=== PATIENT | male | born 1955 | race Caucasian/White ===

== ENCOUNTER → 2016-09-06 | Outpatient (CLI) | payer BC, OTHER ==
[~2016-09-06] MED LIST: CIPR500T78 PO; HYDR-3812 PO; HYDR-3816 PO; HYDR1TAB PO; LOSA1TAB15 PO; LOSA1TAB19; METR500T PO; NAPR-689; NAPR220C11 PO; OMEP20TA33 PO; OMG1KC PO; TRAM50TA2; TRAM50TA2 PO
--- NOTE | 2016-09-06 11:56 | Diagnostic Imaging Report ---
PROCEDURE: CT abdomen and pelvis without contrast. TECHNIQUE: Multiple contiguous axial images were obtained through the abdomen and pelvis without the use of intravenous contrast. INDICATION: Left-sided abdominal pain. COMPARISON: 10/31/2014 FINDINGS: Included views of the lung bases show benign calcified granulomas within the right lower lobe. CT abdomen: There is colonic diverticulosis, but no CT evidence of acute diverticulitis is seen on today's study. Normal appendix cannot be adequately identified, but there is no pericecal inflammation. The more distal small bowel loops are somewhat prominent in diameter, but there is no evidence of focal obstruction. The kidneys, adrenal glands, spleen, pancreas, and liver have an unremarkable noncontrast CT appearance. There is no loculated fluid collection, free fluid or free air within the abdomen. No abnormal mesenteric or retroperitoneal adenopathy is seen. There is mild calcified aortic and arterial atherosclerosis. Bony structures show no acute abnormalities. CT pelvis: Urinary bladder is unopacified and nondistended. No calculi are seen within the urinary bladder. There is no loculated fluid collection, free fluid or free air within the pelvis. No abnormal lymph nodes are seen. Bony structures show no acute abnormalities. IMPRESSION: 1. Colonic diverticulosis, but no CT evidence of acute diverticulitis. 2. Somewhat mildly prominent appearance to the distal small bowel loops, but otherwise no evidence of focal obstruction. Findings are nonspecific, but could be on the basis of underlying enteritis. Dictated by: Dictated on workstation # [id number]
== END ==
LOC: RAD 09:37
PROVIDERS: ATTEND Family Medicine
DX: K57.30 Diverticulosis of large intestine without perforation or abscess without bleeding (principal)
CPT/HCPCS: 74176

== ENCOUNTER → 2017-08-21 | Outpatient (CLI) | payer BC, OTHER ==
[~2017-08-21] MED LIST changes: +ACHD5005 PO; -HYDR-3812 PO
== END ==
LOC: RAD 12:37
PROVIDERS: ATTEND Family Medicine
DX: Z53.8 Procedure and treatment not carried out for other reasons (principal); M54.12 Radiculopathy, cervical region

== ENCOUNTER 2017-10-18 19:07 | Emergency (ER) | payer BC, OTHER ==
[~2017-10-18] VITALS: Ht 182.9 cm; Wt 88.5 kg
--- OUTSIDE RECORDS SUMMARY | 2017-10-18 19:13 | XMS REPORT | Continuity of Care Document ---
Author Author [facility] Organization [facility] Address Unknown Phone Unavailable Allergies Active Description Code Type Severity Reaction Onset Reported/Identified Relationship to Patient Clinical Status Yes SHRAVAN INHIBITORS UNKNOWN RESPIRATORY - COUGHI Yes DEMEROL UNKNOWN OTHER Yes GABAPENTIN UNKNOWN DIZZINESS Yes GABAPENTIN MODERATE OTHER Yes NKANo Known Allergies NKA Miscellaneous Allergy Unknown N/A 12/10/2005 Yes meperidine [id number] Drug Allergy Unknown N/A 10/31/2014 Medications There is no data. 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 08/30/2011 Ot 401.9 HYPERTENSION NOS 08/30/2011 Ot 550.10 UNILAT ING HERNIA W OBST 11/29/2012 Ot 789.00 ABDOMINAL PAIN, UNSPECIFIED SITE 10/30/2014 Ot 401.9 10/30/2014 Ot 401.9 10/30/2014 Ot 789.00 10/30/2014 KEISHA ARANDA, MARY Weinstein Ot 401.9 10/31/2014 Ot 789.00 10/31/2014 KEISHA ARANDA, MARY Weinstein Ot 805.4 10/31/2014 MARY VALDES MD Ot E000.8 10/31/2014 MARY VALDES MD Ot E888.9 10/31/2014 Ot 789.00 10/31/2014 MARY VALDES MD Ot 805.4 10/31/2014 MARY VALDES MD Ot E000.8 10/31/2014 MARY VALDES MD Ot E888.9 10/31/2014 NING RIOS MD Ot 560.9 INTESTINAL OBSTRUCT NOS 10/31/2014 NING RIOS MD Ot 562.10 DIVERTICULOSIS COLON (W/O MENT OF HEMORR 10/31/2014 NING RIOS MD Ot 733.13 PATHOLOGIC FRACTURE, VERTEBRAE 10/31/2014 GABRIEL ARANDA, NING Levi Ot 789.00 ABDOMINAL PAIN, UNSPECIFIED SITE 12/03/2014 KEISHA ARANDA, MARY Weinstein Ot 805.4 12/03/2014 KEISHA ARANDA, MARY Weinstein Ot E000.8 12/03/2014 KEISHA ARANDA, MARY Weinstein Ot E888.9 12/03/2014 ALDANAMELCHOR J SUPERVISOR GEAR REPAIR Ot 557.1 12/03/2014 ALDANA, MELCHOR J SUPERVISOR GEAR REPAIR Ot 562.10 12/03/2014 ALDANA, MELCHOR J SUPERVISOR GEAR REPAIR Ot 787.3 12/03/2014 ALDANA, MELCHOR J SUPERVISOR GEAR REPAIR Ot 787.91 12/03/2014 ALDANA, MELCHOR J SUPERVISOR GEAR REPAIR Ot 789.00 12/16/2014 Ot 401.9 12/16/2014 Ot 401.9 12/16/2014 Ot 789.00 12/16/2014 KEISHA ARANDA, MARY Weinstein Ot 401.9 12/16/2014 KEISHA ARANDA, MARY L Ot 805.4 12/16/2014 KEISHA ARANDA, MARY L Ot E000.8 12/16/2014 KEISHA ARANDA, MARY Weinstein Ot E888.9 12/16/2014 ALDANAHORTENCIALY J SUPERVISOR GEAR REPAIR Ot 557.1 12/16/2014 ALDANAHORTENCIALY J SUPERVISOR GEAR REPAIR Ot 562.10 12/16/2014 ALDANAHORTENCIALY J SUPERVISOR GEAR REPAIR Ot 787.3 12/16/2014 ALDANAMELCHOR J SUPERVISOR GEAR REPAIR Ot 787.91 12/16/2014 ALDANAHORTENCIALY J SUPERVISOR GEAR REPAIR Ot 789.00 12/16/2014 KEISHA ARANDA, MARY L Ot 805.4 12/16/2014 KEISHA ARANDA, MARY Weinstein Ot E000.8 12/16/2014 KEISHA ARANDA, MARY Weinstein Ot E888.9 12/16/2014 KEISHA ARANDA, MARY L Ot 805.4 12/16/2014 KEISHA ARANDA, MARY L Ot E000.8 12/16/2014 KEISHA ARANDA, MARY L Ot E888.9 12/16/2014 ALDANA MELCHOR Tuan SUPERVISOR GEAR REPAIR Ot 557.1 12/16/2014 ALDANA, MELCHOR J SUPERVISOR GEAR REPAIR Ot 562.10 12/16/2014 ALDANA MELCHOR J SUPERVISOR GEAR REPAIR Ot 787.3 12/16/2014 ALDANAMELCHOR J SUPERVISOR GEAR REPAIR Ot 787.91 12/16/2014 ALDANAMELCHOR J SUPERVISOR GEAR REPAIR Ot 789.00 02/05/2015 Ot 401.9 02/05/2015 Ot 401.9 02/05/2015 Ot 789.00 02/05/2015 KEISHA ARANDA, MARY Weinstein Ot 401.9 02/05/2015 KEISHA ARANDA, MARY Weinstein Ot 805.4 02/05/2015 KEISHA ARANDA, MARY Weinstein Ot E000.8 02/05/2015 KEISHA ARANDA, MARY Weinstein Ot E888.9 02/05/2015 ALDANAMELCHOR J SUPERVISOR GEAR REPAIR Ot 557.1 02/05/2015 ALDANAHORTENCIALY J SUPERVISOR GEAR REPAIR Ot 562.10 02/05/2015 ALDANAMELCHOR J SUPERVISOR GEAR REPAIR Ot 787.3 02/05/2015 ALDANAMELCHOR J SUPERVISOR GEAR REPAIR Ot 787.91 02/05/2015 ALDANA, MELCHOR J SUPERVISOR GEAR REPAIR Ot 789.00 02/05/2015 Ot 733.13 02/05/2015 APPLE ARANDA, IJEOMA Dickerson Ot 733.13 02/05/2015 APPLE ARANDA, IJEOMA Dickerson Ot V72.63 02/05/2015 APPLE ARANDA, IJEOMA Dickerson Ot V74.8 02/05/2015 ALDANAMELCHOR J SUPERVISOR GEAR REPAIR Ot 557.1 02/05/2015 ALDANAMELCHOR J SUPERVISOR GEAR REPAIR Ot 562.10 02/05/2015 ALDANAMELCHOR J SUPERVISOR GEAR REPAIR Ot 787.3 02/05/2015 ALDANA, MELCHOR J SUPERVISOR GEAR REPAIR Ot 787.91 02/05/2015 ALDANA, MELCHOR J SUPERVISOR GEAR REPAIR Ot 789.00 02/05/2015 KEISHA ARANDA, MARY Weinstein Ot 805.4 02/05/2015 KEISHA ARANDA, MARY Weinstein Ot E000.8 02/05/2015 KEISHA ARANDA, MARY Weinstein Ot E888.9 02/09/2015 KEISHA ARANDA, MARY Weinstein Ot 805.4 02/09/2015 KEISHA ARANDA, MARY Weinstein Ot E000.8 02/09/2015 KEISHA ARANDA, MARY Weinstein Ot E888.9 02/09/2015 ALDANAMELCHOR J SUPERVISOR GEAR REPAIR Ot 557.1 02/09/2015 MELCHOR ALDANA SUPERVISOR GEAR REPAIR Ot 562.10 02/09/2015 MELCHOR ALDANA SUPERVISOR GEAR REPAIR Ot 787.3 02/09/2015 MELCHOR ALDANA SUPERVISOR GEAR REPAIR Ot 787.91 02/09/2015 MELCHOR ALDANA SUPERVISOR GEAR REPAIR Ot 789.00 02/09/2015 IJEOMA CHIU MD Ot 733.00 OSTEOPOROSIS NOS 02/09/2015 IJEOMA CHIU MD Ot 733.13 PATHOLOGIC FRACTURE, VERTEBRAE 02/09/2015 IJEOMA CHIU MD Ot M81.0 AGE-RELATED OSTEOPOROSIS W/O CURRENT PAT 02/12/2015 Ot 733.13 02/19/2015 IJEOMA CHIU MD Ot 733.13 02/19/2015 IJEOMA CHIU MD Ot V72.63 02/19/2015 IJEOMA CHIU MD Ot V74.8 03/02/2015 Ot 733.13 03/02/2015 IJEOMA CHIU MD Ot 733.13 03/02/2015 IJEOMA CHIU MD Ot V72.63 03/02/2015 IJEOMA CHIU MD Ot V74.8 03/03/2015 MARY VALDES MD Ot 805.4 03/03/2015 MARY VALDES MD Ot E000.8 03/03/2015 MARY VALDES MD Ot E888.9 03/03/2015 MELCHOR ALDANA SUPERVISOR GEAR REPAIR Ot 557.1 03/03/2015 MELCHOR ALDANA SUPERVISOR GEAR REPAIR Ot 562.10 03/03/2015 MELCHOR ALDANA SUPERVISOR GEAR REPAIR Ot 787.3 03/03/2015 MELCHOR ALDANA SUPERVISOR GEAR REPAIR Ot 787.91 03/03/2015 MELCHOR ALDANA SUPERVISOR GEAR REPAIR Ot 789.00 03/03/2015 Ot 733.13 03/03/2015 IJEOMA CHIU MD Ot 733.13 03/03/2015 IJEOMA CHIU MD Ot V72.63 03/03/2015 IJEOMA CHIU MD Ot V74.8 03/05/2015 MARY VALDES MD Ot 562.10 03/05/2015 MARY VALDES MD Ot 780.60 03/09/2015 Ot 733.13 03/09/2015 IJEOMA CHIU MD Ot 733.13 03/09/2015 IJEOMA CHIU MD Ot V72.63 03/09/2015 IJEOMA CHIU MD Ot V74.8 03/09/2015 IJEOMA CHIU MD Ot Z01.812 03/10/2015 KEISHA ARANDA, MARY Weinstein Ot 562.10 03/10/2015 MARY VALDES MD Ot 780.60 03/13/2015 MARY VALDES MD Ot 562.10 03/13/2015 MARY VALDES MD Ot 780.60 03/16/2015 Ot 401.9 03/16/2015 Ot 401.9 03/16/2015 Ot 789.00 03/16/2015 KEISHA ARANDA, MARY Weinstein Ot 401.9 03/16/2015 MARY VALDES MD Ot 805.4 03/16/2015 MARY VALDES MD Ot E000.8 03/16/2015 KEISHA ARANDA, MARY Weinstein Ot E888.9 03/16/2015 ALDANAMELCHOR J SUPERVISOR GEAR REPAIR Ot 557.1 03/16/2015 ALDANAMELCHOR SUPERVISOR GEAR REPAIR Ot 562.10 03/16/2015 ALDANA, MELCHOR Dickerson SUPERVISOR GEAR REPAIR Ot 787.3 03/16/2015 ALDANA, MELCHOR J SUPERVISOR GEAR REPAIR Ot 787.91 03/16/2015 ALDANA, MELCHOR J SUPERVISOR GEAR REPAIR Ot 789.00 03/16/2015 Ot 733.13 03/16/2015 IJEOMA CHIU MD Ot 733.13 03/16/2015 IJEOMA CHIU MD Ot V72.63 03/16/2015 IJEOMA CHIU MD Ot V74.8 03/16/2015 IJEOMA CHIU MD Ot Z01.812 04/13/2015 MARY VALDES MD Ot 562.10 04/13/2015 KEISHA ARANDA, MARY Weinstein Ot 780.60 04/28/2015 MARY VALDES MD Ot 562.10 04/28/2015 MARY VALDES MD Ot 780.60 09/08/2015 MARY VALDES MD Ot 805.4 09/08/2015 MARY VALDES MD Ot E000.8 09/08/2015 KEISHA ARANDA, MARY Weinstein Ot E888.9 09/08/2015 ALDANAMELCHOR SUPERVISOR GEAR REPAIR Ot 557.1 09/08/2015 ALDANAMELCHOR J SUPERVISOR GEAR REPAIR Ot 562.10 09/08/2015 ALDANAMELCHOR J SUPERVISOR GEAR REPAIR Ot 787.3 09/08/2015 ALDANAMELCHOR SUPERVISOR GEAR REPAIR Ot 787.91 09/08/2015 ALDANAHORTENCIALY J SUPERVISOR GEAR REPAIR Ot 789.00 09/08/2015 Ot 733.13 09/08/2015 IJEOMA CHIU MD Ot 733.13 09/08/2015 IJEOMA CHIU MD Ot V72.63 09/08/2015 IJEOMA CHIU MD Ot V74.8 09/08/2015 IJEOMA CHIU MD Ot Z01.812 09/08/2015 KEISHA ARANDA, MARY Weinstein Ot 562.10 09/08/2015 MARY VALDES MD Ot 780.60 09/08/2015 KEISHA ARANDA, MARY Weinstein Ot 805.4 09/08/2015 MARY VALDES MD Ot E000.8 09/08/2015 KEISHA ARANDA, MARY Weinstein Ot E888.9 09/08/2015 ALDANAMELCHOR SUPERVISOR GEAR REPAIR Ot 557.1 09/08/2015 ALDANAMELCHOR SUPERVISOR GEAR REPAIR Ot 562.10 09/08/2015 ALDANAMELCHOR SUPERVISOR GEAR REPAIR Ot 787.3 09/08/2015 ALDANAMELCHOR SUPERVISOR GEAR REPAIR Ot 787.91 09/08/2015 ALDANAHORTENCIALY J SUPERVISOR GEAR REPAIR Ot 789.00 09/08/2015 Ot 733.13 09/08/2015 IJEOMA CHIU MD Ot 733.13 09/08/2015 IJEOMA CHIU MD Ot V72.63 09/08/2015 IJEOMA CHIU MD Ot V74.8 09/08/2015 IJEOMA CHIU MD Ot Z01.812 09/08/2015 MARY VALDES MD Ot 562.10 09/08/2015 MARY VALDES MD Ot 780.60 10/28/2015 MARY VALDES MD Ot M12.9 ARTHROPATHY, UNSPECIFIED 10/28/2015 MARY VALDES MD L Ot M48.06 SPINAL STENOSIS, LUMBAR REGION 10/28/2015 KEISHA ARANDA, MARY Weinstein Ot 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, 10/28/2015 MARY VALDES MD Ot M12.9 ARTHROPATHY, UNSPECIFIED 10/28/2015 MARY VALDES MD Ot M48.06 SPINAL STENOSIS, LUMBAR REGION 10/28/2015 MARY VALDES MD Ot 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, 10/28/2015 MARY VALDES MD Ot M12.9 ARTHROPATHY, UNSPECIFIED 10/28/2015 MARY VALDES MD Ot M48.06 SPINAL STENOSIS, LUMBAR REGION 10/28/2015 MARY VALDES MD Ot 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, 11/02/2015 MARY VALDES MD Ot 805.4 FX LUMBAR VERTEBRA-CLOSE 11/02/2015 MARY VALDES MD Ot E000.8 OTHER EXTERNAL CAUSE STATUS 11/02/2015 KEISHA ARANDA, MARY Weinstein Ot E888.9 FALL NOS 11/02/2015 MELCHOR ALDANA SUPERVISOR GEAR REPAIR Ot 557.1 CHR VASC INSUFF INTEST 11/02/2015 MELCHOR ALDANA SUPERVISOR GEAR REPAIR Ot 562.10 DIVERTICULOSIS COLON (W/O MENT OF HEMORR 11/02/2015 MELCHOR ALDANA SUPERVISOR GEAR REPAIR Ot 787.3 FLATUL/ERUCTAT/GAS PAIN 11/02/2015 MELCHOR ALDANA SUPERVISOR GEAR REPAIR Ot 787.91 DIARRHEA 11/02/2015 MELCHOR ALDANA SUPERVISOR GEAR REPAIR Ot 789.00 ABDOMINAL PAIN, UNSPECIFIED SITE 11/02/2015 Ot 733.13 PATHOLOGIC FRACTURE, VERTEBRAE 11/02/2015 IJEOMA CHIU MD Ot 733.13 PATHOLOGIC FRACTURE, VERTEBRAE 11/02/2015 IJEOMA CHIU MD Ot V72.63 PRE-PROCEDURAL LABORATORY EXAMINATION 11/02/2015 IJEOMA CHIU MD Ot V74.8 SCREEN-BACTERIAL DIS NEC 11/02/2015 IJEOMA CHIU MD Ot Z01.812 ENCOUNTER FOR PREPROCEDURAL LABORATORY E 11/02/2015 MARY VALDES MD Ot 562.10 DIVERTICULOSIS COLON (W/O MENT OF HEMORR 11/02/2015 MARY VALDES MD Ot 780.60 FEVER, UNSPECIFIED 11/02/2015 MARY VALDES MD Ot M12.9 ARTHROPATHY, UNSPECIFIED 11/02/2015 MARY VALDES MD Ot M48.06 SPINAL STENOSIS, LUMBAR REGION 11/02/2015 MARY VALDES MD Ot 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, 11/02/2015 Ot 401.9 HYPERTENSION NOS 11/02/2015 Ot 401.9 HYPERTENSION NOS 11/02/2015 Ot 789.00 ABDOMINAL PAIN, UNSPECIFIED SITE 11/02/2015 KEISHA ARANDA, MARY Weinstein Ot 401.9 HYPERTENSION NOS 11/02/2015 KEISHA ARANDA, MARY Weinstein Ot 805.4 FX LUMBAR VERTEBRA-CLOSE 11/02/2015 MARY VALDES MD Ot E000.8 OTHER EXTERNAL CAUSE STATUS 11/02/2015 MARY VALDES MD Ot E888.9 FALL NOS 11/02/2015 MELCHOR ALDANA SUPERVISOR GEAR REPAIR Ot 557.1 CHR VASC INSUFF INTEST 11/02/2015 MELCHOR ALDANA SUPERVISOR GEAR REPAIR Ot 562.10 DIVERTICULOSIS COLON (W/O MENT OF HEMORR 11/02/2015 MELCHOR ALDANA SUPERVISOR GEAR REPAIR Ot 787.3 FLATUL/ERUCTAT/GAS PAIN 11/02/2015 MELCHOR ALDANA SUPERVISOR GEAR REPAIR Ot 787.91 DIARRHEA 11/02/2015 MELCHOR ALDANA SUPERVISOR GEAR REPAIR Ot 789.00 ABDOMINAL PAIN, UNSPECIFIED SITE 11/02/2015 Ot 733.13 PATHOLOGIC FRACTURE, VERTEBRAE 11/02/2015 IJEOMA CHIU MD Ot 733.13 PATHOLOGIC FRACTURE, VERTEBRAE 11/02/2015 IJEOMA CHIU MD Ot V72.63 PRE-PROCEDURAL LABORATORY EXAMINATION 11/02/2015 IJEOMA CHIU MD Ot V74.8 SCREEN-BACTERIAL DIS NEC 11/02/2015 IJEOMA CHIU MD Ot Z01.812 ENCOUNTER FOR PREPROCEDURAL LABORATORY E 11/02/2015 MARY VALDES MD Ot 562.10 DIVERTICULOSIS COLON (W/O MENT OF HEMORR 11/02/2015 MARY VALDES MD Ot 780.60 FEVER, UNSPECIFIED 11/02/2015 MARY VALDES MD Ot M12.9 ARTHROPATHY, UNSPECIFIED 11/02/2015 VALDES MD, MARY L Ot M48.06 SPINAL STENOSIS, LUMBAR REGION 11/02/2015 MARY VALDES MD Ot 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, 11/11/2015 MARY VALDES MD Ot M12.9 ARTHROPATHY, UNSPECIFIED 11/11/2015 MARY VALDES MD Ot M48.06 SPINAL STENOSIS, LUMBAR REGION 11/11/2015 MARY VALDES MD Ot 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, 11/25/2015 MARY VALDES MD Ot 805.4 FX LUMBAR VERTEBRA-CLOSE 11/25/2015 MARY VALDES MD Ot E000.8 OTHER EXTERNAL CAUSE STATUS 11/25/2015 MARY VALDES MD Ot E888.9 FALL NOS 11/25/2015 MELCHOR ALDANAP Ot 557.1 CHR VASC INSUFF INTEST 11/25/2015 MELCHOR ALDANAP Ot 562.10 DIVERTICULOSIS COLON (W/O MENT OF HEMORR 11/25/2015 MELCHOR ALDANA SUPERVISOR GEAR REPAIR Ot 787.3 FLATUL/ERUCTAT/GAS PAIN 11/25/2015 MELCHOR ALDANAP Ot 787.91 DIARRHEA 11/25/2015 MELCHOR ALDANA SUPERVISOR GEAR REPAIR Ot 789.00 ABDOMINAL PAIN, UNSPECIFIED SITE 11/25/2015 Ot 733.13 PATHOLOGIC FRACTURE, VERTEBRAE 11/25/2015 IJEOMA CIHU MD Ot 733.13 PATHOLOGIC FRACTURE, VERTEBRAE 11/25/2015 IJEOMA CHIU MD Ot V72.63 PRE-PROCEDURAL LABORATORY EXAMINATION 11/25/2015 IJEOMA CHIU MD Ot V74.8 SCREEN-BACTERIAL DIS NEC 11/25/2015 IJEOMA CHIU MD Ot Z01.812 ENCOUNTER FOR PREPROCEDURAL LABORATORY E 11/25/2015 MARY VALDES MD Ot 562.10 DIVERTICULOSIS COLON (W/O MENT OF HEMORR 11/25/2015 MARY VALDES MD Ot 780.60 FEVER, UNSPECIFIED 11/25/2015 MARY VALDES MD Ot M12.9 ARTHROPATHY, UNSPECIFIED 11/25/2015 MARY VALDES MD Ot M48.06 SPINAL STENOSIS, LUMBAR REGION 11/25/2015 VALDES MD, MARY L Ot 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, 12/04/2015 KEISHA ARANDA, MARY Weinstein Ot M12.9 ARTHROPATHY, UNSPECIFIED 12/04/2015 KEISHA ARANDA, MARY Weinstein Ot M48.06 SPINAL STENOSIS, LUMBAR REGION 12/04/2015 KEISHA ARANDA, MARY Weinstein Ot 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, 12/17/2015 KEISHA ARANDA, MARY Weinstein Ot M12.9 ARTHROPATHY, UNSPECIFIED 12/17/2015 KEISHA ARANDA, MARY Weinstein Ot M48.06 SPINAL STENOSIS, LUMBAR REGION 12/17/2015 MARY VALDES MD Ot 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, 12/31/2015 Ot 401.9 HYPERTENSION NOS 12/31/2015 Ot 401.9 HYPERTENSION NOS 12/31/2015 Ot 789.00 ABDOMINAL PAIN, UNSPECIFIED SITE 12/31/2015 MARY VALDES MD Ot 401.9 HYPERTENSION NOS 12/31/2015 KEISHA ARANDA, MARY Weinstein Ot 805.4 FX LUMBAR VERTEBRA-CLOSE 12/31/2015 KEISHA ARANDA, MARY Weinstein Ot E000.8 OTHER EXTERNAL CAUSE STATUS 12/31/2015 KEISHA ARANDA, MARY Weinstein Ot E888.9 FALL NOS 12/31/2015 MELCHOR ALDANA SUPERVISOR GEAR REPAIR Ot 557.1 CHR VASC INSUFF INTEST 12/31/2015 MELCHOR ALDANA SUPERVISOR GEAR REPAIR Ot 562.10 DIVERTICULOSIS COLON (W/O MENT OF HEMORR 12/31/2015 MELCHOR ALDANA SUPERVISOR GEAR REPAIR Ot 787.3 FLATUL/ERUCTAT/GAS PAIN 12/31/2015 MELCHOR ALDANA SUPERVISOR GEAR REPAIR Ot 787.91 DIARRHEA 12/31/2015 MELCHOR ALDANA SUPERVISOR GEAR REPAIR Ot 789.00 ABDOMINAL PAIN, UNSPECIFIED SITE 12/31/2015 Ot 733.13 PATHOLOGIC FRACTURE, VERTEBRAE 12/31/2015 IJEOMA CHIU MD Ot 733.13 PATHOLOGIC FRACTURE, VERTEBRAE 12/31/2015 IJEOMA CHIU MD Ot V72.63 PRE-PROCEDURAL LABORATORY EXAMINATION 12/31/2015 IJEOMA CHIU MD Ot V74.8 SCREEN-BACTERIAL DIS NEC 12/31/2015 IJEOMA CHIU MD Ot Z01.812 ENCOUNTER FOR PREPROCEDURAL LABORATORY E 12/31/2015 MARY VALDES MD Ot 562.10 DIVERTICULOSIS COLON (W/O MENT OF HEMORR 12/31/2015 KEISHA ARANDA, MARY Weinstein Ot 780.60 FEVER, UNSPECIFIED 12/31/2015 KEISHA ARANDA, MARY Weinstein Ot M12.9 ARTHROPATHY, UNSPECIFIED 12/31/2015 KEISHA ARANDA, MARY Weinstein Ot M48.06 SPINAL STENOSIS, LUMBAR REGION 12/31/2015 KEISHA ARANDA, MARY Weinstein Ot 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, 01/18/2016 ELVI ARANDA, BELEN Dickerson Ot 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 RADICULO 02/08/2016 BELEN BOLES MD Ot 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 RADICULO 02/25/2016 BELEN BOLES MD Ot 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 RADICULO 04/01/2016 KEISHA ARANDA, MARY Weinstein Ot 805.4 FX LUMBAR VERTEBRA-CLOSE 04/01/2016 KEISHA ARANDA, MARY Weinstein Ot E000.8 OTHER EXTERNAL CAUSE STATUS 04/01/2016 KEISHA ARANDA, MARY Weinstein Ot E888.9 FALL NOS 04/01/2016 MELCHOR ALDANA SUPERVISOR GEAR REPAIR Ot 557.1 CHR VASC INSUFF INTEST 04/01/2016 MELCHOR ALDANA SUPERVISOR GEAR REPAIR Ot 562.10 DIVERTICULOSIS COLON (W/O MENT OF HEMORR 04/01/2016 MELCHOR ALDANA SUPERVISOR GEAR REPAIR Ot 787.3 FLATUL/ERUCTAT/GAS PAIN 04/01/2016 MELCHOR ALDANA SUPERVISOR GEAR REPAIR Ot 787.91 DIARRHEA 04/01/2016 MELCHOR ALDANA SUPERVISOR GEAR REPAIR Ot 789.00 ABDOMINAL PAIN, UNSPECIFIED SITE 04/01/2016 Ot 733.13 PATHOLOGIC FRACTURE, VERTEBRAE 04/01/2016 IJEOMA CHIU MD Ot 733.13 PATHOLOGIC FRACTURE, VERTEBRAE 04/01/2016 IJEOMA CHIU MD Ot V72.63 PRE-PROCEDURAL LABORATORY EXAMINATION 04/01/2016 IJEOMA CHIU MD Ot V74.8 SCREEN-BACTERIAL DIS NEC 04/01/2016 IJEOMA CHIU MD Ot Z01.812 ENCOUNTER FOR PREPROCEDURAL LABORATORY E 04/01/2016 MARY VALDES MD Ot 562.10 DIVERTICULOSIS COLON (W/O MENT OF HEMORR 04/01/2016 MARY VALDES MD Ot 780.60 FEVER, UNSPECIFIED 04/01/2016 MARY VLADES MD Ot M12.9 ARTHROPATHY, UNSPECIFIED 04/01/2016 MARY VALDES MD Ot M48.06 SPINAL STENOSIS, LUMBAR REGION 04/01/2016 MARY VALDES MD Ot 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, 04/01/2016 BELEN BOLES MD Ot 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 RADICULO 04/01/2016 BELEN BOLES MD Ot 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 RADICULO 04/22/2016 BELEN BOLES MD Ot 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 RADICULO 09/06/2016 MARY VALDES MD Ot 805.4 FX LUMBAR VERTEBRA-CLOSE 09/06/2016 MARY VALDES MD Ot E000.8 OTHER EXTERNAL CAUSE STATUS 09/06/2016 MARY VALDES MD Ot E888.9 FALL NOS 09/06/2016 MELCHOR ALDANA SUPERVISOR GEAR REPAIR Ot 557.1 CHR VASC INSUFF INTEST 09/06/2016 MELCHOR ALDANA SUPERVISOR GEAR REPAIR Ot 562.10 DIVERTICULOSIS COLON (W/O MENT OF HEMORR 09/06/2016 MELCHOR ALDANA SUPERVISOR GEAR REPAIR Ot 787.3 FLATUL/ERUCTAT/GAS PAIN 09/06/2016 MELCHOR ALDANA SUPERVISOR GEAR REPAIR Ot 787.91 DIARRHEA 09/06/2016 MELCHOR ALDANAP Ot 789.00 ABDOMINAL PAIN, UNSPECIFIED SITE 09/06/2016 Ot 733.13 PATHOLOGIC FRACTURE, VERTEBRAE 09/06/2016 IJEOMA CHIU MD Ot 733.13 PATHOLOGIC FRACTURE, VERTEBRAE 09/06/2016 IJEOMA CHIU MD Ot V72.63 PRE-PROCEDURAL LABORATORY EXAMINATION 09/06/2016 IJEOMA CHIU MD Ot V74.8 SCREEN-BACTERIAL DIS NEC 09/06/2016 IJEOMA CHIU MD Ot Z01.812 ENCOUNTER FOR PREPROCEDURAL LABORATORY E 09/06/2016 MARY VALDES MD Ot 562.10 DIVERTICULOSIS COLON (W/O MENT OF HEMORR 09/06/2016 MARY VALDES MD Ot 780.60 FEVER, UNSPECIFIED 09/06/2016 MARY VALDES MD Ot M12.9 ARTHROPATHY, UNSPECIFIED 09/06/2016 KEISHA ARANDA, MARY L Ot M48.06 SPINAL STENOSIS, LUMBAR REGION 09/06/2016 KEISHA ARANDA, MARY L Ot 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, 09/06/2016 ELVI ARANDA, BELEN Dickerson Ot 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 RADICULO 09/07/2016 KEISHA ARANDA, MARY L Ot K57.30 DVRTCLOS OF LG INT W/O PERFORATION OR AB 09/07/2016 KEISHA ARANDA, MARY L Ot K57.30 DVRTCLOS OF LG INT W/O PERFORATION OR AB 09/14/2016 KEISHA ARANDA, MARY L Ot K57.30 DVRTCLOS OF LG INT W/O PERFORATION OR AB 09/21/2016 KEISHA ARANDA, MARY L Ot K57.30 DVRTCLOS OF LG INT W/O PERFORATION OR AB 06/13/2017 MARY VALDES W 272.4 OTHER AND UNSPECIFIED HYPERLIPIDEMIA 06/13/2017 MARY VALDES W 401.0 MALIGNANT ESSENTIAL HYPERTENSION 06/13/2017 MARY VALDES W E78.5 HYPERLIPIDEMIA, UNSPECIFIED 06/13/2017 KEISHA, MARY W I10 ESSENTIAL (PRIMARY) HYPERTENSION 06/13/2017 MARY VALDES W 272.4 OTHER AND UNSPECIFIED HYPERLIPIDEMIA 06/13/2017 KEISHA, MARY W 401.0 MALIGNANT ESSENTIAL HYPERTENSION 06/13/2017 VALDSE, MARY W E78.5 HYPERLIPIDEMIA, UNSPECIFIED 06/13/2017 VALDES, MARY W I10 ESSENTIAL (PRIMARY) HYPERTENSION 06/13/2017 MARY VALDES W 272.4 OTHER AND UNSPECIFIED HYPERLIPIDEMIA 06/13/2017 MARY VALDES W 401.0 MALIGNANT ESSENTIAL HYPERTENSION 06/13/2017 MARY VALDES W E78.5 HYPERLIPIDEMIA, UNSPECIFIED 06/13/2017 KEISHA, MARY W I10 ESSENTIAL (PRIMARY) HYPERTENSION 08/07/2017 KEISHA ARANDA, MARY L Ot 805.4 FX LUMBAR VERTEBRA-CLOSE 08/07/2017 KEISHA ARANDA, MARY L Ot E000.8 OTHER EXTERNAL CAUSE STATUS 08/07/2017 KEISHA ARANDA, MARY L Ot E888.9 FALL NOS 08/07/2017 MELCHOR ALDANA SUPERVISOR GEAR REPAIR Ot 557.1 CHR VASC INSUFF INTEST 08/07/2017 MELCHOR ALDANA Ot 562.10 DIVERTICULOSIS COLON (W/O MENT OF HEMORR 08/07/2017 MELCHOR ALDANAP Ot 787.3 FLATUL/ERUCTAT/GAS PAIN 08/07/2017 MELCHOR ALDANAP Ot 787.91 DIARRHEA 08/07/2017 MELCHOR ALDANAP Ot 789.00 ABDOMINAL PAIN, UNSPECIFIED SITE 08/07/2017 Ot 733.13 PATHOLOGIC FRACTURE, VERTEBRAE 08/07/2017 IJEOMA CHIU MD Ot 733.13 PATHOLOGIC FRACTURE, VERTEBRAE 08/07/2017 IJEOMA CHIU MD Ot V72.63 PRE-PROCEDURAL LABORATORY EXAMINATION 08/07/2017 IJEOMA CHIU MD Ot V74.8 SCREEN-BACTERIAL DIS NEC 08/07/2017 IJEOMA CHIU MD Ot Z01.812 ENCOUNTER FOR PREPROCEDURAL LABORATORY E 08/07/2017 KEISHA ARANDA, MARY Weinstein Ot 562.10 DIVERTICULOSIS COLON (W/O MENT OF HEMORR 08/07/2017 KEISHA ARANDA, MARY Weinstein Ot 780.60 FEVER, UNSPECIFIED 08/07/2017 KEISHA ARANDA, MARY Weinstein Ot M12.9 ARTHROPATHY, UNSPECIFIED 08/07/2017 KEISHA ARANDA, MARY Weinstein Ot M48.06 SPINAL STENOSIS, LUMBAR REGION 08/07/2017 KEISHA ARANDA, MARY Weinstein Ot 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, 08/07/2017 ELVI ARANDA, BELEN Dickerson Ot 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 RADICULO 08/07/2017 MARY VALDES MD Ot K57.30 DVRTCLOS OF LG INT W/O PERFORATION OR AB 08/18/2017 MARY VALDES MD Ot 805.4 FX LUMBAR VERTEBRA-CLOSE 08/18/2017 MARY VALDES MD Ot E000.8 OTHER EXTERNAL CAUSE STATUS 08/18/2017 MARY VALDES MD Ot E888.9 FALL NOS 08/18/2017 MELCHOR ALDANAP Ot 557.1 CHR VASC INSUFF INTEST 08/18/2017 MELCHOR ALDANAP Ot 562.10 DIVERTICULOSIS COLON (W/O MENT OF HEMORR 08/18/2017 MELCHOR ALDANA Ot 787.3 FLATUL/ERUCTAT/GAS PAIN 08/18/2017 MELCHOR ALDANA SUPERVISOR GEAR REPAIR Ot 787.91 DIARRHEA 08/18/2017 MELCHOR ALDANA SUPERVISOR GEAR REPAIR Ot 789.00 ABDOMINAL PAIN, UNSPECIFIED SITE 08/18/2017 Ot 733.13 PATHOLOGIC FRACTURE, VERTEBRAE 08/18/2017 IJEOMA CHIU MD Ot 733.13 PATHOLOGIC FRACTURE, VERTEBRAE 08/18/2017 IJEOMA CHIU MD Ot V72.63 PRE-PROCEDURAL LABORATORY EXAMINATION 08/18/2017 IJEOMA CHIU MD Ot V74.8 SCREEN-BACTERIAL DIS NEC 08/18/2017 IJEOMA CHIU MD Ot Z01.812 ENCOUNTER FOR PREPROCEDURAL LABORATORY E 08/18/2017 KEISHA ARANDA, MARY Weinstein Ot 562.10 DIVERTICULOSIS COLON (W/O MENT OF HEMORR 08/18/2017 MARY VALDES MD Ot 780.60 FEVER, UNSPECIFIED 08/18/2017 MARY VALDES MD Ot M12.9 ARTHROPATHY, UNSPECIFIED 08/18/2017 KEISHA ARANDA, MARY Weinstein Ot M48.06 SPINAL STENOSIS, LUMBAR REGION 08/18/2017 KEISHA ARANDA, MARY Weinstein Ot 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, 08/18/2017 ELVI ARANDA, BELEN Dickerson Ot 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 RADICULO 08/18/2017 MARY VALDES MD Ot K57.30 DVRTCLOS OF LG INT W/O PERFORATION OR AB 08/21/2017 MARY VALDES MD Ot 805.4 FX LUMBAR VERTEBRA-CLOSE 08/21/2017 MARY VALDES MD Ot E000.8 OTHER EXTERNAL CAUSE STATUS 08/21/2017 MARY VALDES MD Ot E888.9 FALL NOS 08/21/2017 MELCHOR ALDANA SUPERVISOR GEAR REPAIR Ot 557.1 CHR VASC INSUFF INTEST 08/21/2017 MELCHOR ALDANAP Ot 562.10 DIVERTICULOSIS COLON (W/O MENT OF HEMORR 08/21/2017 MELCHOR ALDANA SUPERVISOR GEAR REPAIR Ot 787.3 FLATUL/ERUCTAT/GAS PAIN 08/21/2017 MELCHOR ALDANA SUPERVISOR GEAR REPAIR Ot 787.91 DIARRHEA 08/21/2017 ALDANA, MELCHOR J SUPERVISOR GEAR REPAIR Ot 789.00 ABDOMINAL PAIN, UNSPECIFIED SITE 08/21/2017 Ot 733.13 PATHOLOGIC FRACTURE, VERTEBRAE 08/21/2017 IJEOMA CHIU MD Ot 733.13 PATHOLOGIC FRACTURE, VERTEBRAE 08/21/2017 IJEOMA CHIU MD Ot V72.63 PRE-PROCEDURAL LABORATORY EXAMINATION 08/21/2017 IJEOMA CHIU MD Ot V74.8 SCREEN-BACTERIAL DIS NEC 08/21/2017 IJEOMA CHIU MD Ot Z01.812 ENCOUNTER FOR PREPROCEDURAL LABORATORY E 08/21/2017 KEISHA ARANDA, MARY Weinstein Ot 562.10 DIVERTICULOSIS COLON (W/O MENT OF HEMORR 08/21/2017 MARY VALDES MD Ot 780.60 FEVER, UNSPECIFIED 08/21/2017 MARY VALDES MD Ot M12.9 ARTHROPATHY, UNSPECIFIED 08/21/2017 MARY VALDES MD Ot M48.06 SPINAL STENOSIS, LUMBAR REGION 08/21/2017 MARY VALDES MD Ot 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, 08/21/2017 BELEN BOLES MD Ot 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 RADICULO 08/21/2017 MARY VALDES MD Ot K57.30 DVRTCLOS OF LG INT W/O PERFORATION OR AB 08/22/2017 MARY VALDES MD Ot M54.12 RADICULOPATHY, CERVICAL REGION 08/22/2017 MARY VALDES MD Ot Z53.8 PROCEDURE AND TREATMENT NOT CARRIED OUT 08/23/2017 MARY VALDES MD Ot M54.12 RADICULOPATHY, CERVICAL REGION 08/23/2017 MARY VALDES MD Ot Z53.8 PROCEDURE AND TREATMENT NOT CARRIED OUT 08/23/2017 Ot 401.9 HYPERTENSION NOS 08/23/2017 Ot 789.00 ABDOMINAL PAIN, UNSPECIFIED SITE 08/23/2017 MARY VALDES MD Ot 401.9 HYPERTENSION NOS 08/23/2017 MARY VALDES MD Ot 805.4 FX LUMBAR VERTEBRA-CLOSE 08/23/2017 MARY VALDES MD Ot E000.8 OTHER EXTERNAL CAUSE STATUS 08/23/2017 MARY VALDES MD Ot E888.9 FALL NOS 08/23/2017 MELCHOR ALDANA SUPERVISOR GEAR REPAIR Ot 557.1 CHR VASC INSUFF INTEST 08/23/2017 HORTENCIA ALDANADOMINGO Dickerson SUPERVISOR GEAR REPAIR Ot 562.10 DIVERTICULOSIS COLON (W/O MENT OF HEMORR 08/23/2017 MARILU ALDANAFRANCISCO JAVIER TYSONP Ot 787.3 FLATUL/ERUCTAT/GAS PAIN 08/23/2017 HORTENCIA ALDANADOMINGO Dickerson SUPERVISOR GEAR REPAIR Ot 787.91 DIARRHEA 08/23/2017 MELCHOR ALDANA SUPERVISOR GEAR REPAIR Ot 789.00 ABDOMINAL PAIN, UNSPECIFIED SITE 08/23/2017 Ot 733.13 PATHOLOGIC FRACTURE, VERTEBRAE 08/23/2017 IJEOMA CHIU MD Ot 733.13 PATHOLOGIC FRACTURE, VERTEBRAE 08/23/2017 IJEOMA CHIU MD Ot V72.63 PRE-PROCEDURAL LABORATORY EXAMINATION 08/23/2017 IJEOMA CHIU MD Ot V74.8 SCREEN-BACTERIAL DIS NEC 08/23/2017 IJEOMA CHIU MD Ot Z01.812 ENCOUNTER FOR PREPROCEDURAL LABORATORY E 08/23/2017 MARY VALDES MD Ot 562.10 DIVERTICULOSIS COLON (W/O MENT OF HEMORR 08/23/2017 MARY VALDES MD Ot 780.60 FEVER, UNSPECIFIED 08/23/2017 MARY VALDES MD Ot M12.9 ARTHROPATHY, UNSPECIFIED 08/23/2017 MARY VALDES MD Ot M48.06 SPINAL STENOSIS, LUMBAR REGION 08/23/2017 MARY VALDES MD Ot 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 Results Test Result Range BMP - 01/25/17 09:05 Anion Gap 16 6-14 BUN 11 mg/dL 5-25 Calcium 10.1 mg/dL 8.3-10.4 Chloride 101 mmol/L 95-114 CO2 26 mEq/L 22-33 Creat 0.90 mg/dL 0.50-1.50 eGFR 86 mL/min/1.73m2 >59 Glucose 99 mg/dL 70-110 Osmo 285 280-295 Potassium 4.6 mmol/L 3.5-5.3 Sodium 138 mmol/L 134-148 Comprehensive Metabolic Panel - 09/06/16 08:40 Albumin 4.4 g/dL 3.6-5.1 ALP 72 U/L 35-130 ALT 22 U/L 6-45 Anion Gap 15 6-14 AST 18 U/L 2-40 BUN 9 mg/dL 5-25 Calcium 9.7 mg/dL 8.3-10.4 Chloride 102 mmol/L 95-114 CO2 24 mEq/L 22-33 Creat 0.84 mg/dL 0.50-1.50 eGFR 93 mL/min/1.73m2 >59 Globulin 2.8 g/dL 2.3-3.5 Glucose 128 mg/dL 70-110 Osmo 283 280-295 Potassium 4.1 mmol/L 3.5-5.3 Sodium 137 mmol/L 134-148 TBil 0.8 mg/dL 0.2-1.2 TP 7.2 g/dL 6.0-8.3 [facility] - 06/13/17 10:30 Anion Gap 14 6-14 BUN 13 mg/dL 5-25 Calcium 10.3 mg/dL 8.3-10.4 Chloride 101 mmol/L 95-114 CO2 26 mEq/L 22-33 Creat 0.82 mg/dL 0.50-1.50 eGFR 95 mL/min/1.73m2 >59 Glucose 106 mg/dL 70-110 Osmo 284 280-295 Potassium 4.2 mmol/L 3.5-5.3 Sodium 137 mmol/L 134-148 Lipid Panel - 06/13/17 10:30 C/HDL 5.7 3.7-6.7 Cholesterol 206 mg/dL 100-240 HDL 36 mg/dL 30-85 LDL-Calculated 119 mg/dL 0-100 Trig 256 mg/dL 35-160 VLDL 51 mg/dL 0-42 Thyroid Stimulating Hormone - 10/16/17 08:50 TSH 2.19 mIU/mL 0.32-5.00 Encounters ACCT No. Visit Date/Time Discharge Status Pt. Type Provider Facility Loc./Unit Complaint [id number] 08/21/2017 12:37:00 08/21/2017 23:59:59 CLS Outpatient MARY VALDES MD [facility] RAD CERVICALGIA [id number] 09/06/2016 09:37:00 09/06/2016 23:59:59 CLS Outpatient MARY VALDES MD [facility] RAD DIVERTICULITIS [id number] 04/01/2016 07:19:00 04/01/2016 08:15:00 DIS Outpatient BELEN BOLES MD [facility] CARD DISC DISORER [id number] 12/25/2015 08:37:00 12/25/2015 23:59:59 CLS Outpatient BELEN BOLES MD [facility] CARD DISC DISORDER W/ RADICULOPATHY [id number] 10/27/2015 08:58:00 10/27/2015 23:59:59 CLS Outpatient MARY VALDES MD [facility] RAD LUMBAR PAIN, RADICULOPATHY [id number] 03/03/2015 18:35:00 03/03/2015 23:59:59 CLS Outpatient MARY VALDES MD [facility] RAD FEVER,ABD PAIN, DIVERTICULOSIS [id number] 02/09/2015 10:55:00 02/09/2015 16:55:00 DIS Outpatient IJEOMA CHIU MD [facility] SDC COMPRESSION FRACTURE [id number] 02/04/2015 09:19:00 02/04/2015 23:59:59 CLS Outpatient IJEOMA CHIU MD [facility] PREOP COMPRESSION FRACTURE [id number] 10/31/2014 14:27:00 10/31/2014 23:59:59 CLS Outpatient MELCHOR ALDANA SUPERVISOR GEAR REPAIR [facility] RAD ABD PAIN,DIARRHEA [id number] 10/31/2014 17:30:00 10/31/2014 18:54:00 DIS Emergency GABRIEL ARANDA, NING Levi [facility] ER LOWER INTESTINE BLOCKAGE [id number] 10/30/2014 14:36:00 10/30/2014 23:59:59 CLS Outpatient MARY VALDES MD [facility] RAD LUMBAR PAIN, FALL [id number] 12/05/2012 09:20:00 12/05/2012 23:59:59 CLS Outpatient MARY VALDES MD [facility] LAB HTN [id number] 01/26/2015 09:08:00 Document Registration [id number] 10/30/2014 14:35:00 Document Registration [id number] 08/31/2012 14:55:00 Document Registration [id number] 07/04/2012 08:44:00 Document Registration [id number] 08/29/2011 13:00:00 Document Registration [id number] 02/01/2011 07:54:00 Document Registration [id number] 06/13/2017 11:53:00 06/13/2017 23:59:00 DIS Outpatient MARY VALDES [id number] 09/06/2016 08:40:00 09/06/2016 23:59:00 DIS Outpatient MARY VALDES [id number] 07/06/2016 09:18:00 07/06/2016 23:59:00 DIS Outpatient MARY VALDES [id number] 10/16/2017 16:45:00 Document Registration [id number] 10/16/2017 11:24:00 Document Registration [id number] 08/28/2017 15:07:46 08/28/2017 23:59:59 CLS Outpatient [id number] 08/05/2017 09:20:00 08/05/2017 23:59:59 CLS Outpatient [facility]
[2017-10-18 20:59] LABS: BASOPHILS % (AUTO) 0 % (0-10); EOSINOPHILS # (AUTO) 0.1 10^3/uL (0.0-0.3); EOSINOPHILS % (AUTO) 1 % (0-10); HEMATOCRIT 40 % (40-54); HEMOGLOBIN 14.8 G/DL (13.3-17.7); LYMPHOCYTES # (AUTO) 1.6 X 10^3 (1.0-4.0); LYMPHOCYTES % (AUTO) 15 % (12-44); MEAN CORPUSCULAR HEMOGLOBIN 33 PG (25-34); MEAN CORPUSCULAR HGB CONC 37 G/DL (32-36); MEAN CORPUSCULAR VOLUME 88 FL (80-99); MEAN PLATELET VOLUME 10.7 FL (7.4-10.4); MONOCYTES # (AUTO) 0.9 X 10^3 (0.0-1.0); MONOCYTES % (AUTO) 9 % (0-12); NEUTROPHILS % (AUTO) 75 % (42-75); PLATELET COUNT 262 10^3/uL (130-400); RED BLOOD COUNT 4.51 10^6/uL (4.35-5.85); RED CELL DISTRIBUTION WIDTH 12.6 % (10.0-14.5); WHITE BLOOD COUNT 10.7 10^3/uL (4.3-11.0)
[2017-10-18 21:10] LABS: ALANINE AMINOTRANSFERASE 21 U/L (0-55); ALBUMIN 4.5 GM/DL (3.2-4.5); ALKALINE PHOSPHATASE 69 U/L (40-136); BILIRUBIN,TOTAL 1.7 MG/DL (0.1-1.0); BUN/CREATININE RATIO 16; CALCIUM 9.2 MG/DL (8.5-10.1); CARBON DIOXIDE 20 MMOL/L (21-32); CHLORIDE 95 MMOL/L (98-107); CREATININE SERUM 0.79 MG/DL (0.60-1.30); GFR ESTIMATED > 60; GLUCOSE 102 MG/DL (70-105); POTASSIUM 3.9 MMOL/L (3.6-5.0); SODIUM 127 MMOL/L (135-145); TOTAL PROTEIN 7.1 GM/DL (6.4-8.2)
[2017-10-18 21:29] LABS: TSH (THYROID ANALYZER) 2.12 UIU/ML (0.35-4.94)
[2017-10-18] MEDS ORDERED: NS IV 1000 ML 1,000 ML IV ONE (21:33)
[2017-10-18] MEDS ORDERED: AMLO10TA4 PO (22:41)
--- NOTE | 2017-10-18 22:41 | ED Cardiac General ---
History of Present Illness General Chief Complaint: Cardiac/General Problems Stated Complaint: HIGH BP Nursing Triage Note: PT STATES HE TOOK SOME MUCINEX DM ABOUT 1630 AND STARTED FEELING STRANGE ABOUT 1715 AND IT KEPT GETTING WORSE. B/P AT HOME WAS 212/114, INITIAL B/P IN TRIAGE ROOM WAS 222/98. DIZZY AND A LITTLE NAUSEA. Source: patient Exam Limitations: no limitations History of Present Illness Date Seen by Provider: October 18, 2017 Time Seen by Provider: 20:19 Initial Comments This 61-year-old gentleman presents with complaints of feeling dizzy and having markedly elevated blood pressure of 212/114 at home. Blood pressure here is 222 /98. Patient believes symptoms started after he took some Mucinex DM for a dry cough he has been experiencing for a few weeks. Shortly after taking this medication his skin started burning and BP was quickly escalating. He also had some mild diarrhea. He also reports having cramps in his extremities for the past few months. His symptoms are now improving. Patient takes losartan with hydrochlorothiazide. He had no chest pain or shortness of breath. Allergies and Home Medications Allergies Coded Allergies: dexamethasone (Verified Allergy, Unknown, HTN, POSSIBLE SEROTONIN SYNDROME , 10/18/17) meperidine (Unverified Adverse Reaction, Unknown, 10/31/14) Home Medications Amlodipine Besylate 10 Mg Tablet, 10 MG PO DAILY Prescribed by: BHAKTI TEJEDA on 10/18/17 2241 Naproxen Sodium 220 Mg Capsule, 2 CAP PO DAILY, (Reported) [place] 3 Polyunsat Fatty Acids 1,000 Mg Cap, 1,000 MG PO DAILY, (Reported) Omeprazole Magnesium 20 Mg Tablet.dr, 20 MG PO DAILY Prescribed by: BUCK MAN on 02/09/15 1240 Tramadol HCl 50 Mg Tablet, 50 MG PO BID Prescribed by: BUCK MAN on 02/09/15 1240 Patient Home Medication List Home Medication List Reviewed: Yes Review of Systems Constitutional: dizziness EENTM: No Symptoms Reported Respiratory: See HPI Cardiovascular: No Symptoms Reported Gastrointestinal: No Symptoms Reported Genitourinary: No Symptoms Reported Musculoskeletal: no symptoms reported Skin: no symptoms reported Psychiatric/Neurological: See HPI Endocrine: No Symptoms Reported Hematologic/Lymphatic: No Symptoms Reported Past Wzdnfjy-Vtogzx-Aiduov Hx Patient Social History Alcohol Use: Occasionally Uses Alcohol Beverage of Choice: Beer Recreational Drug Use: No Smoking Status: Former Smoker Type Used: Cigarettes Former Smoker, Quit: October 10, 2006 Recent Foreign Travel: No Contact w/Someone Who Travel: No Recent Infectious Disease Expo: No Recent Hopitalizations: No Seasonal Allergies Seasonal Allergies: No Past Medical History Surgeries: Yes (BACK, HERNIAS, FACE LACERATION, ) Appendectomy, Gallbladder, Orthopedic Respiratory: No Cardiac: Yes Hypertension Neurological: No Reproductive Disorders: No HIV/AIDS: No Genitourinary: No Gastrointestinal: Yes (TAKES PRILOSEC) Gastroesophageal Reflux, Diverticulosis Musculoskeletal: Yes (BACK SURGERY, RECENT L1 COMPRESSION FX, ) Chronic Back Pain Endocrine: No HEENT: No Loss of Vision: Bilateral Hearing Impairment: Denies Cancer: No Psychosocial: No Integumentary: No Blood Disorders: No Adverse Reaction/Blood Tranf: No Family Medical History No Pertinent Family Hx Physical Exam Vital Signs Vital Signs - First Documented 10/18/17 19:37 Temp 97.5 Pulse 68 Resp 20 B/P (MAP) 222/98 (139) Pulse Ox 99 O2 Delivery Room Air Capillary Refill : Less Than 3 Seconds General Appearance: No Apparent Distress, WD/WN HEENT: PERRL/EOMI, Normal ENT Inspection, Pharynx Normal Neck: Normal Inspection Respiratory: Lungs Clear, Normal Breath Sounds, No Accessory Muscle Use, No Respiratory Distress Cardiovascular: Regular Rate, Rhythm, No Edema, No Murmur Gastrointestinal: Normal Bowel Sounds, Non Tender, Soft Extremity: Normal Capillary Refill, Normal Inspection, No Pedal Edema Neurologic/Psychiatric: Alert, Oriented x3, No Motor/Sensory Deficits, 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, 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 Norm as Tested Skin: Normal Color, Warm/Dry Progress/Results/Core Measures Results/Orders Lab Results Laboratory Tests Test 10/18/17 19:40 Range/Units White Blood Count 10.7 4.3-11.0 10^3/uL Red Blood Count 4.51 4.35-5.85 10^6/uL Hemoglobin 14.8 13.3-17.7 G/DL Hematocrit 40 40-54 % Mean Corpuscular Volume 88 80-99 FL Mean Corpuscular Hemoglobin 33 25-34 PG Mean Corpuscular Hemoglobin Concent 37 H 32-36 G/DL Red Cell Distribution Width 12.6 10.0-14.5 % Platelet Count 262 130-400 10^3/uL Mean Platelet Volume 10.7 H 7.4-10.4 FL Neutrophils (%) (Auto) 75 42-75 % Lymphocytes (%) (Auto) 15 12-44 % Monocytes (%) (Auto) 9 0-12 % Eosinophils (%) (Auto) 1 0-10 % Basophils (%) (Auto) 0 0-10 % Neutrophils # (Auto) 8.0 H 1.8-7.8 X 10^3 Lymphocytes # (Auto) 1.6 1.0-4.0 X 10^3 Monocytes # (Auto) 0.9 0.0-1.0 X 10^3 Eosinophils # (Auto) 0.1 0.0-0.3 10^3/uL Basophils # (Auto) 0.0 0.0-0.1 10^3/uL Sodium Level 127 L 135-145 MMOL/L Potassium Level 3.9 3.6-5.0 MMOL/L Chloride Level 95 L 98-107 MMOL/L Carbon Dioxide Level 20 L 21-32 MMOL/L Anion Gap 12 5-14 MMOL/L Blood Urea Nitrogen 13 7-18 MG/DL Creatinine 0.79 0.60-1.30 MG/DL Estimat Glomerular Filtration Rate > 60 BUN/Creatinine Ratio 16 Glucose Level 102 70-105 MG/DL Calcium Level 9.2 8.5-10.1 MG/DL Total Bilirubin 1.7 H 0.1-1.0 MG/DL Aspartate Amino Transf (AST/SGOT) 28 5-34 U/L Alanine Aminotransferase (ALT/SGPT) 21 0-55 U/L Alkaline Phosphatase 69 40-136 U/L Total Protein 7.1 6.4-8.2 GM/DL Albumin 4.5 3.2-4.5 GM/DL TSH [place] Testing 2.12 0.35-4.94 UIU/ML My Orders Orders - BHAKTI PANIAGUA MD Cbc With Automated Diff (10/18/17 20:31) Comprehensive Metabolic Panel (10/18/17 20:31) Thyroid Analyzer (10/18/17 20:31) Saline Lock/Iv-Start (10/18/17 21:33) Ns Iv 1000 Ml (Sodium Chloride 0.9%) (10/18/17 21:33) Medications Given in ED Vital Signs/I&O 10/18/17 10/18/17 19:37 22:49 Temp 97.5 Pulse 68 67 Resp 20 18 B/P (MAP) 222/98 (139) 169/93 Pulse Ox 99 95 O2 Delivery Room Air Blood Pressure Mean: 139 Progress Progress Note : Progress Note Blood pressure and symptoms were improving without any particular treatment. Patient was watched for over an hour to ensure blood pressure continued to trend down. The hypertension was likely a side effect of dextromethorphan, possibly even serotonin syndrome. Hyponatremia is noted on the lab work. This could be secondary to hydrochlorothiazide use. Losartan could also be causing his dry cough especially considering the dose of losartan was increased around the time the cough started. Options were discussed. Patient wishes to discontinue losartan with hydrochlorothiazide and replace with Norvasc. Departure Impression Primary Impression: Adverse reaction to dextromethorphan Qualified Codes: T48.3X5A - Adverse effect of antitussives, initial encounter Additional Impressions: Hypertensive urgency Hyponatremia Disposition: HOME, SELF-CARE Condition: Improved Departure-Patient Inst. Decision time for Depature: 22:39 Referrals: MARY VALDES MD (PCP/Family) Primary Care Physician Patient Instructions: Hyponatremia Add. Discharge Instructions: Follow-up with your primary care provider soon as possible. Stop losartan with hydrochlorothiazide and start Norvasc as prescribed. Avoid use of dextromethorphan or any product with "DM" purchased over-the- counter. Listed dextromethorphan as an allergy at future healthcare encounters. Dextromethorphan may have caused serotonin syndrome which in severe cases cause major health complications. Return to the emergency room if you have worsening problems. All discharge instructions reviewed with patient and/or family. Voiced understanding. Scripts Amlodipine Besylate (Norvasc) 10 Mg Tablet 10 MG PO DAILY, #20 TAB Prov: BHAKTI PANIAGUA MD 10/18/17 Copy Copies To 1: MARY VALDES MD, JOSHUA T MD October 18, 2017 22:41
[2017-10-18 22:49] VITALS: BP 169/93
== END 2017-10-18 22:50 | disposition home or self-care (01) ==
LOC: EDUNIT# 19:07 → ER 19:08
DX: I16.0 Hypertensive urgency (principal); E87.1 Hypo-osmolality and hyponatremia; T48.3X5A Adverse effect of antitussives, initial encounter; K21.9 Gastro-esophageal reflux disease without esophagitis; I10 Essential (primary) hypertension; Z90.49 Acquired absence of other specified parts of digestive tract; Z87.828 Personal history of other (healed) physical injury and trauma; Z87.81 Personal history of (healed) traumatic fracture; Z87.891 Personal history of nicotine dependence; Z88.5 Allergy status to narcotic agent
CPT/HCPCS: 36415; 80053; 84443; 85025; 96360

== ENCOUNTER 2017-12-21 17:28 | Emergency (ER) | payer BC ==
[~2017-12-21] VITALS: Ht 182.9 cm; Wt 83.9 kg
[~2017-12-21 17:28] MED LIST changes: -AMLO5TAB4 PO; -CLON0.1T PO; -LISI40TA PO; -LORA-404 PO; -ONDA4TAB8 PO
[2017-12-21 18:00] LABS: BASOPHILS % (AUTO) 0 % (0-10); EOSINOPHILS # (AUTO) 0.1 10^3/uL (0.0-0.3); EOSINOPHILS % (AUTO) 2 % (0-10); HEMATOCRIT 40 % (40-54); HEMOGLOBIN 14.7 G/DL (13.3-17.7); LYMPHOCYTES # (AUTO) 1.2 X 10^3 (1.0-4.0); LYMPHOCYTES % (AUTO) 17 % (12-44); MEAN CORPUSCULAR HEMOGLOBIN 33 PG (25-34); MEAN CORPUSCULAR HGB CONC 37 G/DL (32-36); MEAN CORPUSCULAR VOLUME 91 FL (80-99); MEAN PLATELET VOLUME 10.5 FL (7.4-10.4); MONOCYTES # (AUTO) 0.6 X 10^3 (0.0-1.0); MONOCYTES % (AUTO) 9 % (0-12); NEUTROPHILS # (AUTO) 4.9 X 10^3 (1.8-7.8); NEUTROPHILS % (AUTO) 72 % (42-75); PLATELET COUNT 237 10^3/uL (130-400); RED BLOOD COUNT 4.42 10^6/uL (4.35-5.85); RED CELL DISTRIBUTION WIDTH 13.3 % (10.0-14.5); WHITE BLOOD COUNT 6.8 10^3/uL (4.3-11.0)
[2017-12-21] MEDS ORDERED: cloNIDine 0.2 MG (CATAPRES) TAB PO ONE (18:00)
[2017-12-21] MEDS ORDERED: cloNIDine 0.1 MG (CATAPRES) TAB PO ONE (18:00)
--- NOTE | 2017-12-21 18:05 | ED Cardiac General ---
History of Present Illness General Chief Complaint: Cardiac/General Problems Stated Complaint: HIGH BP Nursing Triage Note: pt presents to ed with complaints of hypertension not controlled by medication. Pt states he has had his medication changed multiple times but has not been able to control it. Pt saw Dr. Salgado this AM and was just started on bystolic. Pt reports this has been going on over a month. Source: patient Exam Limitations: no limitations History of Present Illness Date Seen by Provider: Dec 21, 2017 Time Seen by Provider: 18:04 Initial Comments to ER with reports of high blood pressure. He is currently being evaluated by Dr. Salgado trying to find the right combination of medications to better control his blood pressure. Despite this he has a burning sensation in both of his forearms which typically indicates to him that his blood pressure is high. He checked it at home and found it to be 190/100. Timing/Duration: 4-6 hours Severity: mild Activities at Onset: none Prior CP/Workup: no prior chest pain Associated Systoms: Denies Symptoms Allergies and Home Medications Allergies Coded Allergies: dexamethasone (Verified Allergy, Unknown, HTN, POSSIBLE SEROTONIN SYNDROME , 10/18/17) meperidine (Unverified Adverse Reaction, Unknown, 10/31/14) Home Medications Amlodipine Besylate 5 Mg Tablet, 5 MG PO DAILY, (Reported) Clonidine HCl 0.1 Mg Tablet, 0.1 MG PO BID PRN for high blood pressure Prescribed by: MAGNO FOLEY on 12/21/17 1840 Lisinopril 40 Mg Tablet, 40 MG PO DAILY, (Reported) Lorazepam 0.5 Mg Tablet, 0.5 MG PO TID PRN for ANXIETY Prescribed by: GABRIELA BLAIR on 12/23/17 0932 [place] 3 Polyunsat Fatty Acids 1,000 Mg Cap, 1,000 MG PO DAILY, (Reported) Omeprazole Magnesium 20 Mg Tablet.dr, 20 MG PO DAILY Prescribed by: BUCK MAN on 02/09/15 1240 Ondansetron 4 Mg Tab.rapdis, 4 MG PO Q4H Prescribed by: GABRIELA BLAIR on 12/23/17 0932 Tramadol HCl 50 Mg Tablet, 50 MG PO BID Prescribed by: BUCK MAN on 02/09/15 1240 Patient Home Medication List Home Medication List Reviewed: Yes Review of Systems Constitutional: see HPI EENTM: See HPI Respiratory: No Symptoms Reported Cardiovascular: No Symptoms Reported; Denies Chest Pain Gastrointestinal: No Symptoms Reported Genitourinary: No Symptoms Reported Musculoskeletal: no symptoms reported Skin: no symptoms reported Psychiatric/Neurological: No Symptoms Reported Endocrine: No Symptoms Reported Hematologic/Lymphatic: No Symptoms Reported Past Nfzshvq-Hxsztb-Ryccrm Hx Patient Social History Alcohol Use: Regular Use Number of Drinks Today: AA Alcohol Beverage of Choice: Beer Recreational Drug Use: No Smoking Status: Former Smoker Type Used: Cigarettes Former Smoker, Quit: October 10, 2006 Recent Foreign Travel: No Contact w/Someone Who Travel: No Recent Infectious Disease Expo: No Recent Hopitalizations: No Physical Abuse: No Sexual Abuse: No Mistreated: No Fear: No Seasonal Allergies Seasonal Allergies: No Past Medical History Surgeries: Yes (BACK, HERNIAS, FACE LACERATION, ) Appendectomy, Gallbladder, Orthopedic Respiratory: No Cardiac: Yes Hypertension Neurological: No Reproductive Disorders: No HIV/AIDS: No Genitourinary: No Gastrointestinal: Yes (TAKES PRILOSEC) Gastroesophageal Reflux, Diverticulosis Musculoskeletal: Yes (BACK SURGERY, RECENT L1 COMPRESSION FX, ) Chronic Back Pain Endocrine: No HEENT: No Loss of Vision: Bilateral Hearing Impairment: Denies Cancer: No Psychosocial: No Nursing Suicide Risk Score: 0 Integumentary: No Blood Disorders: No Adverse Reaction/Blood Tranf: No Family Medical History No Pertinent Family Hx Physical Exam Vital Signs Vital Signs - First Documented 12/21/17 12/21/17 17:51 19:07 Temp 98.7 Pulse 67 Resp 20 B/P (MAP) 195/103 (133) Pulse Ox 100 O2 Delivery Room Air Capillary Refill : Less Than 3 Seconds Height, Weight, BMI Height: 6'0.00" Weight: 185lbs. 0.0oz. 83.089135ov; 26.5 BMI Method:Stated General Appearance: No Apparent Distress, WD/WN HEENT: PERRL/EOMI Neck: Full Range of Motion, Normal Inspection Respiratory: No Accessory Muscle Use, No Respiratory Distress Cardiovascular: Regular Rate, Rhythm, Normal Peripheral Pulses Gastrointestinal: Normal Bowel Sounds, Non Tender, Soft Extremity: Normal Capillary Refill, Normal Inspection Neurologic/Psychiatric: Alert, Oriented x3 Skin: Normal Color, Warm/Dry Progress/Results/Core Measures Results/Orders Lab Results Laboratory Tests Test 12/21/17 17:44 Range/Units White Blood Count 6.8 4.3-11.0 10^3/uL Red Blood Count 4.42 4.35-5.85 10^6/uL Hemoglobin 14.7 13.3-17.7 G/DL Hematocrit 40 40-54 % Mean Corpuscular Volume 91 80-99 FL Mean Corpuscular Hemoglobin 33 25-34 PG Mean Corpuscular Hemoglobin Concent 37 H 32-36 G/DL Red Cell Distribution Width 13.3 10.0-14.5 % Platelet Count 237 130-400 10^3/uL Mean Platelet Volume 10.5 H 7.4-10.4 FL Neutrophils (%) (Auto) 72 42-75 % Lymphocytes (%) (Auto) 17 12-44 % Monocytes (%) (Auto) 9 0-12 % Eosinophils (%) (Auto) 2 0-10 % Basophils (%) (Auto) 0 0-10 % Neutrophils # (Auto) 4.9 1.8-7.8 X 10^3 Lymphocytes # (Auto) 1.2 1.0-4.0 X 10^3 Monocytes # (Auto) 0.6 0.0-1.0 X 10^3 Eosinophils # (Auto) 0.1 0.0-0.3 10^3/uL Basophils # (Auto) 0.0 0.0-0.1 10^3/uL Sodium Level 140 135-145 MMOL/L Potassium Level 4.1 3.6-5.0 MMOL/L Chloride Level 107 98-107 MMOL/L Carbon Dioxide Level 24 21-32 MMOL/L Anion Gap 9 5-14 MMOL/L Blood Urea Nitrogen 13 7-18 MG/DL Creatinine 0.85 0.60-1.30 MG/DL Estimat Glomerular Filtration Rate > 60 BUN/Creatinine Ratio 15 Glucose Level 104 70-105 MG/DL Calcium Level 9.9 8.5-10.1 MG/DL Total Bilirubin 1.2 H 0.1-1.0 MG/DL Aspartate Amino Transf (AST/SGOT) 22 5-34 U/L Alanine Aminotransferase (ALT/SGPT) 16 0-55 U/L Alkaline Phosphatase 59 40-136 U/L Troponin I < 0.30 <0.30 NG/ML Total Protein 7.0 6.4-8.2 GM/DL Albumin 4.3 3.2-4.5 GM/DL My Orders Orders - MAGNO FOLEY APRN Clonidine Tablet (Catapres Tablet) (12/21/17 18:00) Cbc With Automated Diff (12/21/17 17:53) Comprehensive Metabolic Panel (12/21/17 17:53) Ekg Tracing (12/21/17 17:53) Troponin I (12/21/17 17:53) Chest 1 View, Ap/Pa Only (12/21/17 17:53) Clonidine Tablet (Catapres Tablet) (12/21/17 18:00) Medications Given in ED Vital Signs/I&O 12/21/17 12/21/17 17:51 19:07 Temp 98.7 98.7 Pulse 67 58 Resp 20 16 B/P (MAP) 195/103 (133) 145/82 (133) Pulse Ox 100 98 O2 Delivery Room Air Blood Pressure Mean: 133 Departure Impression Primary Impression: Hypertension Disposition: 01 HOME, SELF-CARE Condition: Stable Departure-Patient Inst. Decision time for Depature: 18:39 Referrals: CHEO SALGADO DO (PCP/Family) Primary Care Physician Patient Instructions: High Blood Pressure (DC) Add. Discharge Instructions: All discharge instructions reviewed with patient and/or family. Voiced understanding. Scripts Clonidine HCl (Clonidine HCl) 0.1 Mg Tablet 0.1 MG PO BID PRN for high blood pressure, #10 TAB Prov: MAGNO FOLEY APRN 12/21/17 MAGNO FOLEY APRN Dec 21, 2017 18:05
[2017-12-21 18:12] LABS: ALANINE AMINOTRANSFERASE 16 U/L (0-55); ALBUMIN 4.3 GM/DL (3.2-4.5); ALKALINE PHOSPHATASE 59 U/L (40-136); BILIRUBIN,TOTAL 1.2 MG/DL (0.1-1.0); BUN/CREATININE RATIO 15; CALCIUM 9.9 MG/DL (8.5-10.1); CARBON DIOXIDE 24 MMOL/L (21-32); CHLORIDE 107 MMOL/L (98-107); CREATININE SERUM 0.85 MG/DL (0.60-1.30); GFR ESTIMATED > 60; GLUCOSE 104 MG/DL (70-105); POTASSIUM 4.1 MMOL/L (3.6-5.0); SODIUM 140 MMOL/L (135-145)
--- NOTE | 2017-12-21 18:14 | Diagnostic Imaging Report ---
INDICATION: Hypertension. EXAMINATION: Frontal chest was obtained at 6:09 p.m. FINDINGS: Heart and mediastinal silhouette are normal in appearance. The lungs are clear. There is no pneumothorax or pleural fluid. IMPRESSION: No acute process in the chest. Dictated by: Dictated on workstation # [id number]
--- OUTSIDE RECORDS SUMMARY | 2017-12-21 18:27 | XMS REPORT | Continuity of Care Document ---
Author Author [facility] Organization [facility] Address Unknown Phone Unavailable Allergies Active Description Code Type Severity Reaction Onset Reported/Identified Relationship to Patient Clinical Status Yes SHRAVAN INHIBITORS UNKNOWN RESPIRATORY - COUGHI Yes DEMEROL UNKNOWN OTHER Yes DEXTROMETHORPHAN HBR SEVERE OTHER Yes GABAPENTIN UNKNOWN DIZZINESS Yes GABAPENTIN MODERATE OTHER Yes NKANo Known Allergies NKA Miscellaneous Allergy Unknown N/A 12/10/2005 Yes meperidine [id number] Drug Allergy Unknown N/A 10/31/2014 Yes dexamethasone [id number] Drug Allergy Unknown HTN, POSSIBLE S 10/18/2017 Medications There is no data. Problems Date [...] KEISHA ARANDA, MARY Weinstein Ot 805.4 10/31/2014 KEISHA ARANDA, MARY Weinstein Ot E000.8 10/31/2014 KEISHA ARANDA, MARY Weinstein Ot E888.9 10/31/2014 Ot 789.00 10/31/2014 KEISHA ARANDA, MARY Weinstein Ot 805.4 10/31/2014 KEISHA ARANDA, MARY Weinstein Ot E000.8 10/31/2014 KEISHA ARANDA, MARY Weinstein Ot E888.9 10/31/2014 NING RIOS MD Ot 560.9 INTESTINAL OBSTRUCT NOS 10/31/2014 NING RIOS MD Ot 562.10 DIVERTICULOSIS COLON (W/O MENT OF HEMORR 10/31/2014 GABRIEL ARANDA, NING Levi Ot 733.13 PATHOLOGIC FRACTURE, VERTEBRAE 10/31/2014 NING RIOS MD Ot 789.00 ABDOMINAL PAIN, UNSPECIFIED SITE 12/03/2014 KEISHA ARANDA, MARY Weinstein Ot 805.4 12/03/2014 KEISHA ARANDA, MARY Weinstein Ot E000.8 12/03/2014 KEISHA ARANDA, MARY Weinstein Ot E888.9 12/03/2014 MELCHOR ALDANA YARDING AND FOLDING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 Ot 557.1 12/03/2014 MELCHOR ALDANA YARDING AND FOLDING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 Ot 562.10 12/03/2014 MELCHOR ALDANA YARDING AND FOLDING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 Ot 787.3 12/03/2014 MELCHOR ALDANA YARDING AND FOLDING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 Ot 787.91 12/03/2014 MELCHOR ALDANA YARDING AND FOLDING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 Ot 789.00 12/16/2014 Ot 401.9 12/16/2014 Ot 401.9 12/16/2014 Ot 789.00 12/16/2014 KEISHA ARANDA, MARY L Ot 401.9 12/16/2014 KEISHA ARANDA, MARY Weinstein Ot 805.4 12/16/2014 KEISHA ARANDA, MARY Weinstein Ot E000.8 12/16/2014 KEISHA ARANDA, MARY Weinstein Ot E888.9 12/16/2014 MELCHOR ALDANA YARDING AND FOLDING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 Ot 557.1 12/16/2014 MELCHOR ALDANA YARDING AND FOLDING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 Ot 562.10 12/16/2014 MELCHOR ALDANA YARDING AND FOLDING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 Ot 787.3 12/16/2014 MELCHOR ALDANA YARDING AND FOLDING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 Ot 787.91 12/16/2014 MELCHOR ALDANA YARDING AND FOLDING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 Ot 789.00 12/16/2014 KEISHA ARANDA, MARY Weinstein Ot 805.4 12/16/2014 KEISHA ARANDA, MARY Weinstein Ot E000.8 12/16/2014 KEISHA ARANDA, MARY Weinstein Ot E888.9 12/16/2014 KEISHA ARANDA, MARY Weinstein Ot 805.4 12/16/2014 KEISHA ARANDA, MARY Weinstein Ot E000.8 12/16/2014 MARY VALDES MD Ot E888.9 12/16/2014 MELCHOR ALDANA YARDING AND FOLDING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 Ot 557.1 12/16/2014 ALDANAMELCHOR J YARDING AND FOLDING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 Ot 562.10 12/16/2014 ALDANAMELCHOR J YARDING AND FOLDING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 Ot 787.3 12/16/2014 ALDANAHORTENCIALY J YARDING AND FOLDING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 Ot 787.91 12/16/2014 ALDANAHORTENCIALY J YARDING AND FOLDING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 Ot 789.00 02/05/2015 Ot 401.9 02/05/2015 Ot 401.9 02/05/2015 Ot 789.00 02/05/2015 KEISHA ARANDA, MARY Weinstein Ot 401.9 02/05/2015 KEISHA ARANDA, MARY Weinstein Ot 805.4 02/05/2015 KEISHA ARANDA, MARY Weinstein Ot E000.8 02/05/2015 KEISHA ARANDA, MARY Weinstein Ot E888.9 02/05/2015 ALDANAMELCHOR YARDING AND FOLDING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 Ot 557.1 02/05/2015 ALDANAMELCHOR YARDING AND FOLDING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 Ot 562.10 02/05/2015 ALDANAMELCHOR YARDING AND FOLDING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 Ot 787.3 02/05/2015 ALDANAMELCHOR J YARDING AND FOLDING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 Ot 787.91 02/05/2015 ALDANAMELCHOR J YARDING AND FOLDING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 Ot 789.00 02/05/2015 Ot 733.13 02/05/2015 APPLE ARANDA, IJEOMA Dickerson Ot 733.13 02/05/2015 APPLE ARNADA, IJEOMA Dickerson Ot V72.63 02/05/2015 IJEOMA CHIU MD Ot V74.8 02/05/2015 ALDANAMELCHOR J YARDING AND FOLDING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 Ot 557.1 02/05/2015 ALDANAMELCHOR J YARDING AND FOLDING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 Ot 562.10 02/05/2015 ALDANAMELCHOR J YARDING AND FOLDING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 Ot 787.3 02/05/2015 ALDANAMELCHOR J YARDING AND FOLDING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 Ot 787.91 02/05/2015 ALDANA, MELCHOR J YARDING AND FOLDING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 Ot 789.00 02/05/2015 KEISHA ARANDA, MARY Weinstein Ot 805.4 02/05/2015 KEISHA ARANDA, MARY Weinstein Ot E000.8 02/05/2015 KEISHA ARANDA, MARY Weinstein Ot E888.9 02/09/2015 KEISHA ARANDA, MARY Weinstein Ot 805.4 02/09/2015 KEISHA ARANDA, MARY Weinstein Ot E000.8 02/09/2015 KEISHA ARANDA, MARY Weinstein Ot E888.9 02/09/2015 MELCHOR ALDANA YARDING AND FOLDING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 Ot 557.1 02/09/2015 MELCHOR ALDANA YARDING AND FOLDING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 Ot 562.10 02/09/2015 MELCHOR ALDANA YARDING AND FOLDING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 Ot 787.3 02/09/2015 MELCHOR ALDANA YARDING AND FOLDING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 Ot 787.91 02/09/2015 MELCHOR ALDANA YARDING AND FOLDING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 Ot 789.00 02/09/2015 IJEOMA CHIU MD Ot [...] VALDES MD Ot E888.9 03/03/2015 MELCHOR ALDANA Tuan YARDING AND FOLDING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 Ot 557.1 03/03/2015 MELCHOR ALDANA Tuan YARDING AND FOLDING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 Ot 562.10 03/03/2015 MELCHOR ALDANA Tuan YARDING AND FOLDING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 Ot 787.3 03/03/2015 MELCHOR ALDANA Tuan YARDING AND FOLDING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 Ot 787.91 03/03/2015 MELCHOR ALDANA Tuan YARDING AND FOLDING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 Ot 789.00 03/03/2015 Ot 733.13 03/03/2015 IJEOMA CHIU MD Ot 733.13 03/03/2015 IJEOMA CHIU MD Ot V72.63 03/03/2015 IJEOMA CHIU MD Ot V74.8 03/05/2015 MARY VALDES MD Ot 562.10 03/05/2015 KEISHA ARANDA, MARY Weinstein Ot 780.60 03/09/2015 Ot 733.13 03/09/2015 IJEOMA CHIU MD Ot 733.13 03/09/2015 IJEOMA CHIU MD Ot V72.63 03/09/2015 IJEOMA CHIU MD Ot V74.8 03/09/2015 IJEOMA CHIU MD Ot Z01.812 03/10/2015 KEISHA ARANDA, MARY Weinstein Ot 562.10 03/10/2015 MARY VALDES MD Ot 780.60 03/13/2015 KEISHA ARANDA, MARY Weinstein Ot 562.10 03/13/2015 MARY VALDES MD Ot 780.60 03/16/2015 Ot 401.9 03/16/2015 Ot 401.9 03/16/2015 Ot 789.00 03/16/2015 KEISHA ARANDA, MARY Weinstein Ot 401.9 03/16/2015 KEISHA ARANDA, MARY Weinstein Ot 805.4 03/16/2015 KEISHA ARANDA, MARY L Ot E000.8 03/16/2015 KEISHA ARANDA, MARY Weinstein Ot E888.9 03/16/2015 ALDANAMELCHOR YARDING AND FOLDING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 Ot 557.1 03/16/2015 ALDANAMELCHOR YARDING AND FOLDING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 Ot 562.10 03/16/2015 ALDANA, MELCHOR Dickerson YARDING AND FOLDING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 Ot 787.3 03/16/2015 ALDANA, MELCHOR Dickerson YARDING AND FOLDING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 Ot 787.91 03/16/2015 ALDANA, MELCHOR Tuan YARDING AND FOLDING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 Ot 789.00 03/16/2015 Ot 733.13 03/16/2015 IJEOMA CHIU MD Ot 733.13 03/16/2015 IJEOMA CHIU MD Ot V72.63 03/16/2015 IJEOMA CHIU MD Ot V74.8 03/16/2015 IJEOMA CHIU MD Ot Z01.812 04/13/2015 KEISHA ARANDA, MARY Weinstein Ot 562.10 04/13/2015 MARY VALDES MD Ot 780.60 04/28/2015 MARY VALDES MD Ot 562.10 04/28/2015 MARY VALDES MD Ot 780.60 09/08/2015 KEISHA ARANDA, MARY Weinstein Ot 805.4 09/08/2015 KEISHA ARANDA, MARY Weinstein Ot E000.8 09/08/2015 MARY VALDES MD Ot E888.9 09/08/2015 ALDANAMELCHOR YARDING AND FOLDING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 Ot 557.1 09/08/2015 ALDANAMELCHOR YARDING AND FOLDING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 Ot 562.10 09/08/2015 ALDANAMELCHOR YARDING AND FOLDING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 Ot 787.3 09/08/2015 ALDANAHORTENCIALY J YARDING AND FOLDING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 Ot 787.91 09/08/2015 ALDANAMELCHOR J YARDING AND FOLDING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 Ot 789.00 09/08/2015 Ot 733.13 09/08/2015 IJEOMA CHIU MD Ot 733.13 09/08/2015 IJEOMA CHIU MD Ot V72.63 09/08/2015 IJEOMA CHIU MD Ot V74.8 09/08/2015 IJEOMA CHIU MD Ot Z01.812 09/08/2015 MARY VALDES MD Ot 562.10 09/08/2015 MARY VALDES MD Ot 780.60 09/08/2015 KEISHA ARANDA, MARY Weinstein Ot 805.4 09/08/2015 MARY VALDES MD Ot E000.8 09/08/2015 MARY VALDES MD Ot E888.9 09/08/2015 MELCHOR ALDANA YARDING AND FOLDING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 Ot 557.1 09/08/2015 ALDANAMELCHOR YARDING AND FOLDING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 Ot 562.10 09/08/2015 ALDANAMELCHOR YARDING AND FOLDING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 Ot 787.3 09/08/2015 ALDANAMELCHOR J YARDING AND FOLDING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 Ot 787.91 09/08/2015 ALDANAMELCHOR J YARDING AND FOLDING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 Ot 789.00 09/08/2015 Ot 733.13 09/08/2015 IJEOMA CHIU MD Ot 733.13 09/08/2015 IJEOMA CHIU MD Ot V72.63 09/08/2015 IJEOMA CHIU MD Ot V74.8 09/08/2015 IJEOMA CHIU MD Ot Z01.812 09/08/2015 MARY VALDES MD Ot 562.10 09/08/2015 MARY VALDES MD Ot 780.60 10/28/2015 KEISHA ARANDA, MARY Weinstein Ot M12.9 ARTHROPATHY, UNSPECIFIED 10/28/2015 MARY VALDES [...] Ot E888.9 FALL NOS 11/02/2015 MELCHOR ALDANA YARDING AND FOLDING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 Ot 557.1 CHR VASC INSUFF INTEST 11/02/2015 MELCHOR ALDANA YARDING AND FOLDING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 Ot 562.10 DIVERTICULOSIS COLON (W/O MENT OF HEMORR 11/02/2015 MELCHOR ALDANA YARDING AND FOLDING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 Ot 787.3 FLATUL/ERUCTAT/GAS PAIN 11/02/2015 MELCHOR ALDANA YARDING AND FOLDING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 Ot 787.91 DIARRHEA 11/02/2015 MELCHOR ALDANA YARDING AND FOLDING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 Ot 789.00 ABDOMINAL PAIN, UNSPECIFIED SITE 11/02/2015 [...] Ot 789.00 ABDOMINAL PAIN, UNSPECIFIED SITE 11/02/2015 MARY VALDES MD Ot 401.9 HYPERTENSION NOS 11/02/2015 MARY VALDES MD Ot 805.4 FX LUMBAR VERTEBRA-CLOSE 11/02/2015 MARY VALDES MD Ot E000.8 OTHER EXTERNAL CAUSE STATUS 11/02/2015 MARY VALDES MD Ot E888.9 FALL NOS 11/02/2015 MELCHOR ALDANA YARDING AND FOLDING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 Ot 557.1 CHR VASC INSUFF INTEST 11/02/2015 MELCHOR ALDANA YARDING AND FOLDING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 Ot 562.10 DIVERTICULOSIS COLON (W/O MENT OF HEMORR 11/02/2015 MELCHOR ALDANA YARDING AND FOLDING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 Ot 787.3 FLATUL/ERUCTAT/GAS PAIN 11/02/2015 MELCHOR ALDANA YARDING AND FOLDING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 Ot 787.91 DIARRHEA 11/02/2015 MELCHOR ALDANA YARDING AND FOLDING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 Ot 789.00 ABDOMINAL PAIN, UNSPECIFIED SITE 11/02/2015 [...] VALDES MD Ot 780.60 FEVER, UNSPECIFIED 11/02/2015 KEISHA ARANDA, MARY Weinstein Ot M12.9 ARTHROPATHY, UNSPECIFIED 11/02/2015 KEISHA ARANDA, MARY Weinstein Ot M48.06 SPINAL STENOSIS, LUMBAR REGION 11/02/2015 KEISHA ARANDA, MARY Weinstein Ot 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, 11/11/2015 MARY VALDES MD Ot M12.9 ARTHROPATHY, UNSPECIFIED 11/11/2015 MARY VALDES MD Ot M48.06 SPINAL STENOSIS, LUMBAR REGION 11/11/2015 MARY VALDES MD Ot 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, 11/25/2015 KEISHA ARANDA, MARY Weinstein Ot 805.4 FX LUMBAR VERTEBRA-CLOSE 11/25/2015 MARY VALDES MD Ot E000.8 OTHER EXTERNAL CAUSE STATUS 11/25/2015 KEISHA ARANDA, MARY Weinstein Ot E888.9 FALL NOS 11/25/2015 MELCHOR ALDANA YARDING AND FOLDING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 Ot 557.1 CHR VASC INSUFF INTEST 11/25/2015 MELCHOR ALDANA YARDING AND FOLDING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 Ot 562.10 DIVERTICULOSIS COLON (W/O MENT OF HEMORR 11/25/2015 MELCHOR ALDANA YARDING AND FOLDING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 Ot 787.3 FLATUL/ERUCTAT/GAS PAIN 11/25/2015 MELCHOR ALDANA YARDING AND FOLDING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 Ot 787.91 DIARRHEA 11/25/2015 MELCHOR ALDANA YARDING AND FOLDING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 Ot 789.00 ABDOMINAL PAIN, UNSPECIFIED SITE 11/25/2015 Ot 733.13 PATHOLOGIC FRACTURE, VERTEBRAE 11/25/2015 IJEOMA CHIU MD Ot 733.13 PATHOLOGIC FRACTURE, VERTEBRAE 11/25/2015 [...] VALDES MD Ot M12.9 ARTHROPATHY, UNSPECIFIED 11/25/2015 KEISHA ARANDA, MARY Weinstein Ot M48.06 SPINAL STENOSIS, LUMBAR REGION 11/25/2015 KEISHA ARANDA, MARY Weinsteni Ot 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, 12/04/2015 KEISHA ARANDA, MARY Weinstein Ot M12.9 ARTHROPATHY, UNSPECIFIED 12/04/2015 KEISHA ARANDA, MARY Weinstein Ot M48.06 SPINAL STENOSIS, LUMBAR REGION 12/04/2015 KEISHA ARANDA, MARY Weinstein Ot 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, 12/17/2015 KEISHA ARANDA, MARY Weinstein Ot M12.9 ARTHROPATHY, UNSPECIFIED 12/17/2015 KEISHA ARANDA, MARY L Ot M48.06 SPINAL STENOSIS, LUMBAR REGION 12/17/2015 KEISHA ARANDA, MARY Weinstein Ot 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, 12/31/2015 Ot 401.9 HYPERTENSION NOS 12/31/2015 Ot 401.9 HYPERTENSION NOS 12/31/2015 Ot 789.00 ABDOMINAL PAIN, UNSPECIFIED SITE 12/31/2015 KEISHA ARANDA, MARY Weinstein Ot 401.9 HYPERTENSION NOS 12/31/2015 KEISHA ARANDA, MARY Weinstein Ot 805.4 FX LUMBAR VERTEBRA-CLOSE 12/31/2015 KEISHA ARANDA, MARY L Ot E000.8 OTHER EXTERNAL CAUSE STATUS 12/31/2015 KEISHA ARANDA, MARY L Ot E888.9 FALL NOS 12/31/2015 MELCHOR ALDANA YARDING AND FOLDING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 Ot 557.1 CHR VASC INSUFF INTEST 12/31/2015 MELCHOR ALDANA YARDING AND FOLDING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 Ot 562.10 DIVERTICULOSIS COLON (W/O MENT OF HEMORR 12/31/2015 MELCHOR ALDANA YARDING AND FOLDING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 Ot 787.3 FLATUL/ERUCTAT/GAS PAIN 12/31/2015 MELCHOR ALDANA YARDING AND FOLDING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 Ot 787.91 DIARRHEA 12/31/2015 MELCHOR ALDANA YARDING AND FOLDING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 Ot 789.00 ABDOMINAL PAIN, UNSPECIFIED SITE 12/31/2015 Ot 733.13 PATHOLOGIC FRACTURE, VERTEBRAE 12/31/2015 IJEOMA HCIU MD Ot 733.13 PATHOLOGIC FRACTURE, VERTEBRAE 12/31/2015 IJEOMA CHIU MD Ot V72.63 PRE-PROCEDURAL LABORATORY EXAMINATION 12/31/2015 IJEOMA CHIU MD Ot V74.8 SCREEN-BACTERIAL DIS NEC 12/31/2015 IJEOMA CHIU MD Ot Z01.812 ENCOUNTER FOR PREPROCEDURAL LABORATORY E 12/31/2015 KEISHA ARANDA, MARY Weinstein Ot 562.10 DIVERTICULOSIS COLON (W/O MENT OF HEMORR 12/31/2015 KEISHA ARANDA, MARY Weinstein Ot 780.60 FEVER, UNSPECIFIED 12/31/2015 MARY VALDES MD Ot M12.9 ARTHROPATHY, UNSPECIFIED 12/31/2015 KEISHA ARANDA, MARY Weinstein Ot M48.06 SPINAL STENOSIS, LUMBAR REGION 12/31/2015 MARY VALDES MD Ot 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, 01/18/2016 BELEN BOLES MD Ot 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 RADICULO 02/08/2016 BELEN BOLES MD Ot 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 RADICULO 02/25/2016 BELEN BOLES MD Ot 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 RADICULO 04/01/2016 MARY VALDES MD Ot 805.4 FX LUMBAR VERTEBRA-CLOSE 04/01/2016 KEISHA ARANDA, MARY Weinstein Ot E000.8 OTHER EXTERNAL CAUSE STATUS 04/01/2016 MARY VALDES MD Ot E888.9 FALL NOS 04/01/2016 MELCHOR ALDANA YARDING AND FOLDING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 Ot 557.1 CHR VASC INSUFF INTEST 04/01/2016 MELCHOR ALDANA YARDING AND FOLDING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 Ot 562.10 DIVERTICULOSIS COLON (W/O MENT OF HEMORR 04/01/2016 MELCHOR ALDANA YARDING AND FOLDING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 Ot 787.3 FLATUL/ERUCTAT/GAS PAIN 04/01/2016 MELCHOR ALDANA YARDING AND FOLDING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 Ot 787.91 DIARRHEA 04/01/2016 MELCHOR ALDANA YARDING AND FOLDING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 Ot 789.00 ABDOMINAL PAIN, UNSPECIFIED SITE 04/01/2016 Ot 733.13 PATHOLOGIC FRACTURE, VERTEBRAE 04/01/2016 IJEOMA CHIU MD Ot 733.13 PATHOLOGIC FRACTURE, VERTEBRAE 04/01/2016 IJEOMA CHIU MD Ot V72.63 PRE-PROCEDURAL LABORATORY EXAMINATION 04/01/2016 IJEOMA CHIU MD Ot V74.8 SCREEN-BACTERIAL DIS NEC 04/01/2016 IJEOMA CHIU MD Ot Z01.812 ENCOUNTER FOR PREPROCEDURAL LABORATORY E 04/01/2016 MARY VALDES MD Ot 562.10 DIVERTICULOSIS COLON (W/O MENT OF HEMORR 04/01/2016 KEISHA ARANDA, MARY Weinstein Ot 780.60 FEVER, UNSPECIFIED 04/01/2016 KEISHA ARANDA, MARY Weinstein Ot M12.9 ARTHROPATHY, UNSPECIFIED 04/01/2016 KEISHA ARANDA, MARY Weinstein Ot M48.06 SPINAL STENOSIS, LUMBAR REGION 04/01/2016 MARY VALDES MD Ot 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, 04/01/2016 BELEN BOLES MD Ot 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 RADICULO 04/01/2016 BELEN BOLES MD Ot 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 RADICULO 04/22/2016 BELEN BOLES MD Ot 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 RADICULO 09/06/2016 KEISHA ARANDA, MARY Weinstein Ot 805.4 FX LUMBAR VERTEBRA-CLOSE 09/06/2016 MARY VALDES MD Ot E000.8 OTHER EXTERNAL CAUSE STATUS 09/06/2016 KEISHA ARANDA, MARY Weinstein Ot E888.9 FALL NOS 09/06/2016 MELCHOR ALDANA YARDING AND FOLDING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 Ot 557.1 CHR VASC INSUFF INTEST 09/06/2016 MELCHOR ALDANA YARDING AND FOLDING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 Ot 562.10 DIVERTICULOSIS COLON (W/O MENT OF HEMORR 09/06/2016 MELCHOR ALDANA YARDING AND FOLDING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 Ot 787.3 FLATUL/ERUCTAT/GAS PAIN 09/06/2016 MELCHOR ALDANA YARDING AND FOLDING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 Ot 787.91 DIARRHEA 09/06/2016 MELCHOR ALDANA YARDING AND FOLDING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 Ot 789.00 ABDOMINAL PAIN, UNSPECIFIED SITE 09/06/2016 Ot 733.13 PATHOLOGIC FRACTURE, VERTEBRAE 09/06/2016 IJEOMA CHIU MD Ot 733.13 PATHOLOGIC FRACTURE, VERTEBRAE 09/06/2016 IJEOMA CHIU MD Ot V72.63 PRE-PROCEDURAL LABORATORY EXAMINATION 09/06/2016 IJEOMA CHIU MD Ot V74.8 SCREEN-BACTERIAL DIS NEC 09/06/2016 IJEOMA CHIU MD Ot Z01.812 ENCOUNTER FOR PREPROCEDURAL LABORATORY E 09/06/2016 MARY VALDES MD Ot 562.10 DIVERTICULOSIS COLON (W/O MENT OF HEMORR 09/06/2016 RONALDO VALDES MDHEL L Ot 780.60 FEVER, UNSPECIFIED 09/06/2016 KEISHA ARANDA, MARY L Ot M12.9 ARTHROPATHY, UNSPECIFIED 09/06/2016 KEISHA ARANDA, [...] MARY W 401.0 MALIGNANT ESSENTIAL HYPERTENSION 06/13/2017 MARY VALDES W E78.5 HYPERLIPIDEMIA, UNSPECIFIED 06/13/2017 MARY VALDES W I10 ESSENTIAL (PRIMARY) HYPERTENSION 06/13/2017 MARY VALDES W 272.4 OTHER AND UNSPECIFIED HYPERLIPIDEMIA 06/13/2017 KEISHA, MARY W 401.0 MALIGNANT ESSENTIAL HYPERTENSION 06/13/2017 MARY VALDES W E78.5 HYPERLIPIDEMIA, UNSPECIFIED 06/13/2017 MARY VALDES W I10 ESSENTIAL (PRIMARY) HYPERTENSION 08/07/2017 MARY VALDES MD L Ot 805.4 FX LUMBAR VERTEBRA-CLOSE 08/07/2017 MARY VALDES MD L Ot E000.8 OTHER EXTERNAL CAUSE STATUS 08/07/2017 MARY VALDES MD L Ot E888.9 FALL NOS 08/07/2017 MELCHOR ALDANA Ot 557.1 CHR VASC INSUFF INTEST 08/07/2017 MELCHOR ALDANA Ot 562.10 DIVERTICULOSIS COLON (W/O MENT OF HEMORR 08/07/2017 MELCHOR ALDANA Ot 787.3 FLATUL/ERUCTAT/GAS PAIN 08/07/2017 MELCHOR ALDANA Ot 787.91 DIARRHEA 08/07/2017 MELCHOR ALDANA Ot 789.00 ABDOMINAL PAIN, UNSPECIFIED SITE 08/07/2017 [...] DIVERTICULOSIS COLON (W/O MENT OF HEMORR 08/07/2017 MARY VALDES MD Ot 780.60 FEVER, UNSPECIFIED 08/07/2017 MARY VALDES MD Ot M12.9 ARTHROPATHY, UNSPECIFIED 08/07/2017 MARY VALDES MD Ot M48.06 SPINAL STENOSIS, LUMBAR REGION 08/07/2017 MARY VALDES MD Ot 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, 08/07/2017 BELEN BOLES MD Ot 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 RADICULO 08/07/2017 MARY VALDES MD Ot K57.30 DVRTCLOS OF LG INT W/O PERFORATION OR AB 08/18/2017 MARY VALDES MD Ot 805.4 FX LUMBAR VERTEBRA-CLOSE 08/18/2017 MARY VALDES MD Ot E000.8 OTHER EXTERNAL CAUSE STATUS 08/18/2017 MARY VALDES MD Ot E888.9 FALL NOS 08/18/2017 MELCHOR ALDANA Ot 557.1 CHR VASC INSUFF INTEST 08/18/2017 MELCHOR ALDANA Ot 562.10 DIVERTICULOSIS COLON (W/O MENT OF HEMORR 08/18/2017 MELCHOR ALDANAP Ot 787.3 FLATUL/ERUCTAT/GAS PAIN 08/18/2017 MELCHOR ALDANAP Ot 787.91 DIARRHEA 08/18/2017 MELCHOR ALDANA Ot 789.00 ABDOMINAL PAIN, UNSPECIFIED SITE 08/18/2017 [...] DIVERTICULOSIS COLON (W/O MENT OF HEMORR 08/18/2017 KEISHA ARANDA, MARY Weinstein Ot 780.60 FEVER, UNSPECIFIED 08/18/2017 KEISHA ARANDA, MARY Weinstein Ot M12.9 ARTHROPATHY, UNSPECIFIED 08/18/2017 KEISHA ARANDA, MARY Weinstein Ot M48.06 SPINAL STENOSIS, LUMBAR REGION 08/18/2017 KEISHA ARANDA, MARY Weinstein Ot 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, 08/18/2017 BELEN BOLES MD Ot 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 RADICULO 08/18/2017 MARY VALDES MD Ot K57.30 DVRTCLOS OF LG INT W/O PERFORATION OR AB 08/21/2017 KEISHA ARANDA, MARY Weinstein Ot 805.4 FX LUMBAR VERTEBRA-CLOSE 08/21/2017 MARY VALDES MD Ot E000.8 OTHER EXTERNAL CAUSE STATUS 08/21/2017 MARY VALDES MD Ot E888.9 FALL NOS 08/21/2017 MELCHOR ALDANA Ot 557.1 CHR VASC INSUFF INTEST 08/21/2017 MELCHOR ALDANA Ot 562.10 DIVERTICULOSIS COLON (W/O MENT OF HEMORR 08/21/2017 MELCHOR ALDANA Ot 787.3 FLATUL/ERUCTAT/GAS PAIN 08/21/2017 MELCHOR ALDANA YARDING AND FOLDING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 Ot 787.91 DIARRHEA 08/21/2017 MELCHOR ALDANA YARDING AND FOLDING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 Ot 789.00 ABDOMINAL PAIN, UNSPECIFIED SITE 08/21/2017 [...] Ot E000.8 OTHER EXTERNAL CAUSE STATUS 08/23/2017 KEISHA ARANDA, MARY Weinstein Ot E888.9 FALL NOS 08/23/2017 HORTENCIA ALDANADOMINGO Dickerson YARDING AND FOLDING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 Ot 557.1 CHR VASC INSUFF INTEST 08/23/2017 ALDANA MELCHOR TYSONP Ot 562.10 DIVERTICULOSIS COLON (W/O MENT OF HEMORR 08/23/2017 HORTENCIA ALDANADOMINGO Dickerson [employer]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 Ot 787.3 FLATUL/ERUCTAT/GAS PAIN 08/23/2017 KATYA MELCHOR J [employer]ING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 Ot 787.91 DIARRHEA 08/23/2017 MARILU ALDANAFRANCISCO JAVIER Dickerson [employer]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 Ot 789.00 ABDOMINAL PAIN, UNSPECIFIED SITE 08/23/2017 Ot 733.13 PATHOLOGIC FRACTURE, VERTEBRAE 08/23/2017 IJEOMA CHIU MD Ot 733.13 PATHOLOGIC FRACTURE, VERTEBRAE 08/23/2017 IJEOMA CHIU MD Ot V72.63 PRE-PROCEDURAL LABORATORY EXAMINATION 08/23/2017 IEJOMA CHIU MD Ot V74.8 SCREEN-BACTERIAL DIS NEC 08/23/2017 IJEOMA CHIU MD Ot Z01.812 ENCOUNTER FOR PREPROCEDURAL LABORATORY E 08/23/2017 KEISHA ARANDA, MARY Weinstein Ot 562.10 DIVERTICULOSIS COLON (W/O MENT OF HEMORR 08/23/2017 KEISHA ARANDA, MARY Weinstein Ot 780.60 FEVER, UNSPECIFIED 08/23/2017 MARY VALDES MD Ot M12.9 ARTHROPATHY, UNSPECIFIED 08/23/2017 MARY VALDES MD Ot M48.06 SPINAL STENOSIS, LUMBAR REGION 08/23/2017 MARY VALDES MD Ot 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, 08/23/2017 MARY VALDES MD Ot K57.30 DVRTCLOS OF LG INT W/O PERFORATION OR AB 08/23/2017 MARY VALDES MD Ot M54.12 RADICULOPATHY, CERVICAL REGION 08/23/2017 MARY VALDSE MD Ot Z53.8 PROCEDURE AND TREATMENT NOT CARRIED OUT 10/16/2017 Reyna Thorpe 729.82 CRAMP OF LIMB 10/16/2017 Reyna Thorpe R25.2 CRAMP AND SPASM 10/16/2017 Reyna Thorpe 729.82 CRAMP OF LIMB 10/16/2017 Reyna Thorpe R25.2 CRAMP AND SPASM 10/16/2017 Reyna Thorpe W 729.82 CRAMP OF LIMB 10/16/2017 Reyna Thorpe R25.2 CRAMP AND SPASM 10/18/2017 Ot 789.00 ABDOMINAL PAIN, UNSPECIFIED SITE 10/18/2017 BHAKTI PANIAGUA MD, Ot E87.1 HYPO-OSMOLALITY AND HYPONATREMIA 10/18/2017 BHAKTI PANIAGUA MD, Ot I10 ESSENTIAL (PRIMARY) HYPERTENSION 10/18/2017 BHAKTI PANIAGUA MD, Ot I16.0 HYPERTENSIVE URGENCY 10/18/2017 BHAKTI PANIAGUA MD, Ot K21.9 GASTRO-ESOPHAGEAL REFLUX DISEASE WITHOUT 10/18/2017 BHAKTI PANIAGUA MD, Ot R42 DIZZINESS AND GIDDINESS 10/18/2017 BHAKTI PANIAGUA MD, Ot T48.3X5A ADVERSE EFFECT OF ANTITUSSIVES, INITIAL 10/18/2017 BHAKTI PANIAGUA MD, Ot Z87.81 PERSONAL HISTORY OF (HEALED) TRAUMATIC F 10/18/2017 BHAKTI PANIAGUA MD, Ot Z87.828 PERSONAL HISTORY OF OTH (HEALED) PHYSICA 10/18/2017 BHAKTI PANIAGUA MD, Ot Z87.891 PERSONAL HISTORY OF NICOTINE DEPENDENCE 10/18/2017 BHAKTI PANIAGUA MD, Ot Z88.5 ALLERGY STATUS TO NARCOTIC AGENT STATUS 10/18/2017 BHAKTI PANIAGUA MD, Ot Z90.49 ACQUIRED ABSENCE OF OTHER SPECIFIED PART 10/26/2017 MARY VALDES 276.1 HYPOSMOLALITY AND/OR HYPONATREMIA 10/26/2017 MARY VALDES 401.0 MALIGNANT ESSENTIAL HYPERTENSION 10/26/2017 MARY VALDES E87.1 HYPO-OSMOLALITY AND HYPONATREMIA 10/26/2017 MARY VALDES I10 ESSENTIAL (PRIMARY) HYPERTENSION 10/26/2017 MARY VALDES 276.1 HYPOSMOLALITY AND/OR HYPONATREMIA 10/26/2017 MARY VALDES 401.0 MALIGNANT ESSENTIAL HYPERTENSION 10/26/2017 MARY VALDES E87.1 HYPO-OSMOLALITY AND HYPONATREMIA 10/26/2017 MARY VALDES I10 ESSENTIAL (PRIMARY) HYPERTENSION Procedures There is no data. Results Test Result Range [facility] - 07/06/16 09:05 Anion Gap 16 6-14 BUN 11 [...] 0.8 mg/dL 0.2-1.2 TP 7.2 g/dL 6.0-8.3 [facility] - 06/13/17 10:30 Anion Gap 14 6-14 [...] - 10/16/17 08:50 TSH 2.19 mIU/mL 0.32-5.00 Complete blood count (CBC) with automated white blood cell (WBC) differential - 10/18/17 19:40 Blood leukocytes automated count (number/volume) 10.7 10*3/uL 4.3-11.0 Blood erythrocytes automated count (number/volume) 4.51 10*6/uL 4.35-5.85 Venous blood hemoglobin measurement (mass/volume) 14.8 g/dL 13.3-17.7 Blood hematocrit (volume fraction) 40 % 40-54 Automated erythrocyte mean corpuscular volume 88 [foz_us] 80-99 Automated erythrocyte mean corpuscular hemoglobin (mass per erythrocyte) 33 pg 25-34 Automated erythrocyte mean corpuscular hemoglobin concentration measurement ( mass/volume) 37 g/dL 32-36 Automated erythrocyte distribution width ratio 12.6 % 10.0-14.5 Automated blood platelet count (count/volume) 262 10*3/uL 130-400 Automated blood platelet mean volume measurement 10.7 [foz_us] 7.4-10.4 Automated blood neutrophils/100 leukocytes 75 % 42-75 Automated blood lymphocytes/100 leukocytes 15 % 12-44 Blood monocytes/100 leukocytes 9 % 0-12 Automated blood eosinophils/100 leukocytes 1 % 0-10 Automated blood basophils/100 leukocytes 0 % 0-10 Blood neutrophils automated count (number/volume) 8.0 10*3 1.8-7.8 Blood lymphocytes automated count (number/volume) 1.6 10*3 1.0-4.0 Blood monocytes automated count (number/volume) 0.9 10*3 0.0-1.0 Automated eosinophil count 0.1 10*3/uL 0.0-0.3 Automated blood basophil count (count/volume) 0.0 10*3/uL 0.0-0.1 Comprehensive metabolic panel - 10/18/17 19:40 Serum or plasma sodium measurement (moles/volume) 127 mmol/L 135-145 Serum or plasma potassium measurement (moles/volume) 3.9 mmol/L 3.6-5.0 Serum or plasma chloride measurement (moles/volume) 95 mmol/L 98-107 Carbon dioxide 20 mmol/L 21-32 Serum or plasma anion gap determination (moles/volume) 12 mmol/L 5-14 Serum or plasma urea nitrogen measurement (mass/volume) 13 mg/dL 7-18 Serum or plasma creatinine measurement (mass/volume) 0.79 mg/dL 0.60-1.30 Serum or plasma urea nitrogen/creatinine mass ratio 16 NRG Serum or plasma creatinine measurement with calculation of estimated glomerular filtration rate > NRG Serum or plasma glucose measurement (mass/volume) 102 mg/dL 70-105 Serum or plasma calcium measurement (mass/volume) 9.2 mg/dL 8.5-10.1 Serum or plasma total bilirubin measurement (mass/volume) 1.7 mg/dL 0.1-1.0 Serum or plasma alkaline phosphatase measurement (enzymatic activity/volume) 69 U/L 40-136 Serum or plasma aspartate aminotransferase measurement (enzymatic activity/ volume) 28 U/L 5-34 Serum or plasma alanine aminotransferase measurement (enzymatic activity/volume ) 21 U/L 0-55 Serum or plasma protein measurement (mass/volume) 7.1 g/dL 6.4-8.2 Serum or plasma albumin measurement (mass/volume) 4.5 g/dL 3.2-4.5 Serum or plasma thyrotropin measurement by detection limit <=0.05 miu/l (units/ volume) - 10/18/17 19:40 Serum or plasma thyrotropin measurement by detection limit <=0.05 miu/l (units/ volume) 2.12 u[iU]/mL 0.35-4.94 BMP - 10/26/17 08:25 Anion Gap 15 6-14 BUN 18 mg/dL 5-25 Calcium 10.1 mg/dL 8.3-10.4 Chloride 103 mmol/L 95-114 CO2 23 mEq/L 22-33 Creat 0.85 mg/dL 0.50-1.50 eGFR 91 mL/min/1.73m2 >59 Glucose 103 mg/dL 70-110 Osmo 285 280-295 Potassium 4.3 mmol/L 3.5-5.3 Sodium 137 mmol/L 134-148 Complete blood count (CBC) with automated white blood cell (WBC) differential - 12/21/17 17:44 Blood leukocytes automated count (number/volume) 6.8 10*3/uL 4.3-11.0 Blood erythrocytes automated count (number/volume) 4.42 10*6/uL 4.35-5.85 Venous blood hemoglobin measurement (mass/volume) 14.7 g/dL 13.3-17.7 Blood hematocrit (volume fraction) 40 % 40-54 Automated erythrocyte mean corpuscular volume 91 [foz_us] 80-99 Automated erythrocyte mean corpuscular hemoglobin (mass per erythrocyte) 33 pg 25-34 Automated erythrocyte mean corpuscular hemoglobin concentration measurement ( mass/volume) 37 g/dL 32-36 Automated erythrocyte distribution width ratio 13.3 % 10.0-14.5 Automated blood platelet count (count/volume) 237 10*3/uL 130-400 Automated blood platelet mean volume measurement 10.5 [foz_us] 7.4-10.4 Automated blood neutrophils/100 leukocytes 72 % 42-75 Automated blood lymphocytes/100 leukocytes 17 % 12-44 Blood monocytes/100 leukocytes 9 % 0-12 Automated blood eosinophils/100 leukocytes 2 % 0-10 Automated blood basophils/100 leukocytes 0 % 0-10 Blood neutrophils automated count (number/volume) 4.9 10*3 1.8-7.8 Blood lymphocytes automated count (number/volume) 1.2 10*3 1.0-4.0 Blood monocytes automated count (number/volume) 0.6 10*3 0.0-1.0 Automated eosinophil count 0.1 10*3/uL 0.0-0.3 Automated blood basophil count (count/volume) 0.0 10*3/uL 0.0-0.1 Comprehensive metabolic panel - 12/21/17 17:44 Serum or plasma sodium measurement (moles/volume) 140 mmol/L 135-145 Serum or plasma potassium measurement (moles/volume) 4.1 mmol/L 3.6-5.0 Serum or plasma chloride measurement (moles/volume) 107 mmol/L 98-107 Carbon dioxide 24 mmol/L 21-32 Serum or plasma anion gap determination (moles/volume) 9 mmol/L 5-14 Serum or plasma urea nitrogen measurement (mass/volume) 13 mg/dL 7-18 Serum or plasma creatinine measurement (mass/volume) 0.85 mg/dL 0.60-1.30 Serum or plasma urea nitrogen/creatinine mass ratio 15 NRG Serum or plasma creatinine measurement with calculation of estimated glomerular filtration rate > NRG Serum or plasma glucose measurement (mass/volume) 104 mg/dL 70-105 Serum or plasma calcium measurement (mass/volume) 9.9 mg/dL 8.5-10.1 Serum or plasma total bilirubin measurement (mass/volume) 1.2 mg/dL 0.1-1.0 Serum or plasma alkaline phosphatase measurement (enzymatic activity/volume) 59 U/L 40-136 Serum or plasma aspartate aminotransferase measurement (enzymatic activity/ volume) 22 U/L 5-34 Serum or plasma alanine aminotransferase measurement (enzymatic activity/volume ) 16 U/L 0-55 Serum or plasma protein measurement (mass/volume) 7.0 g/dL 6.4-8.2 Serum or plasma albumin measurement (mass/volume) 4.3 g/dL 3.2-4.5 Serum or plasma troponin i.cardiac measurement (mass/volume) - 12/21/17 17:44 Serum or plasma troponin i.cardiac measurement (mass/volume) < ng/ mL <0.30 Encounters ACCT No. Visit Date/Time Discharge Status Pt. Type Provider Facility Loc./Unit Complaint [id number] 10/18/2017 19:08:00 10/18/2017 22:50:00 DIS Emergency BHAKTI PANIAGUA MD [facility] ER HIGH BP [id number] 08/21/2017 12:37:00 08/21/2017 23:59:59 CLS Outpatient MARY VALDES MD [facility] RAD CERVICALGIA [id number] 09/06/2016 09:37:00 09/06/2016 23:59:59 CLS Outpatient MARY VALDES MD [facility] RAD DIVERTICULITIS [id number] 04/01/2016 07:19:00 04/01/2016 08:15:00 DIS Outpatient BELEN BOLES MD [facility] CARD DISC DISORER [id number] 12/25/2015 08:37:00 12/25/2015 23:59:59 CLS Outpatient BELEN BOLES MD [facility] CARD DISC DISORDER W/ RADICULOPATHY [id number] 10/27/2015 08:58:00 10/27/2015 23:59:59 CLS Outpatient MARY VALDES MD [facility] RAD LUMBAR PAIN, RADICULOPATHY [id number] 03/03/2015 18:35:00 03/03/2015 23:59:59 CLS Outpatient MARY VALDES MD [facility] RAD FEVER,ABD PAIN, DIVERTICULOSIS [id number] 02/09/2015 10:55:00 02/09/2015 16:55:00 DIS Outpatient IJEOMA CHIU MD [facility] SDC COMPRESSION FRACTURE [id number] 02/04/2015 09:19:00 02/04/2015 23:59:59 CLS Outpatient IJEOMA CHIU MD [facility] PREOP COMPRESSION FRACTURE [id number] 10/31/2014 14:27:00 10/31/2014 23:59:59 CLS Outpatient 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 [facility] RAD ABD PAIN,DIARRHEA [id number] 10/31/2014 17:30:00 10/31/2014 18:54:00 DIS Emergency NING RIOS MD [facility] ER LOWER INTESTINE BLOCKAGE [id number] 10/30/2014 14:36:00 10/30/2014 23:59:59 CLS Outpatient MARY VALDES MD [facility] RAD LUMBAR PAIN, FALL [id number] 12/05/2012 09:20:00 12/05/2012 23:59:59 CLS Outpatient MARY VALDES MD [facility] LAB HTN [id number] 2017 17:29:00 ACT Emergency MAGNO FOLEY APRN [facility] ER HIGH BP [id number] 2017 09:34:00 ACT Outpatient RYAN VAUGHAN APRN [facility] CARD HTN,DIAPHORESIS [id number] 01/26/2015 09:08:00 Document Registration [id number] 10/30/2014 14:35:00 Document Registration [id number] 08/31/2012 14:55:00 Document Registration [id number] 07/04/2012 08:44:00 Document Registration [id number] 08/29/2011 13:00:00 Document Registration [id number] 02/01/2011 07:54:00 Document Registration [id number] 12/18/2017 08:36:13 12/18/2017 23:59:59 CLS Outpatient [id number] 10/26/2017 12:06:00 10/26/2017 23:59:00 DIS Outpatient MARY VALDES [id number] 10/16/2017 16:45:00 10/16/2017 23:59:00 DIS Outpatient Reyna Thorpe [id number] 10/16/2017 11:24:00 10/16/2017 23:59:00 DIS Outpatient Reyna Thorpe [id number] 06/13/2017 11:53:00 06/13/2017 23:59:00 DIS Outpatient MARY VALDES [id number] 09/06/2016 08:40:00 09/06/2016 23:59:00 DIS Outpatient MARY VALDES [id number] 07/06/2016 09:18:00 07/06/2016 23:59:00 DIS Outpatient MARY VALDES [id number] 08/28/2017 15:07:46 08/28/2017 23:59:59 CLS Outpatient [id number] 08/05/2017 09:20:00 08/05/2017 23:59:59 CLS Outpatient [facility]
[2017-12-21] MEDS ORDERED: CLON0.1T PO (18:40)
[2017-12-21 19:07] VITALS: BP 145/82
== END 2017-12-21 19:07 | disposition home or self-care (01) ==
LOC: EDUNIT# 17:28 → ER 17:29
DX: I10 Essential (primary) hypertension (principal); K21.9 Gastro-esophageal reflux disease without esophagitis; Z87.19 Personal history of other diseases of the digestive system; Z88.5 Allergy status to narcotic agent; Z88.8 Allergy status to other drugs, medicaments and biological substances; Z87.891 Personal history of nicotine dependence; Z90.89 Acquired absence of other organs
CPT/HCPCS: 36415; 71045; 80053; 84484; 85025; 93005

== ENCOUNTER → 2017-12-21 | Outpatient (CLI) | payer BC, OTHER ==
[~2017-12-21] MED LIST changes: +AMLO10TA4 PO; +AMLO5TAB4 PO; +CLON0.1T PO; +LISI40TA PO; +LORA-404 PO; +ONDA4TAB8 PO
== END ==
LOC: CARD 09:34
PROVIDERS: ATTEND Nurse Practitioner Family
DX: I10 Essential (primary) hypertension (principal); R61 Generalized hyperhidrosis
CPT/HCPCS: 93005

== ENCOUNTER 2017-12-23 08:56 | Emergency (ER) | payer BC ==
[~2017-12-23] VITALS: Ht 182.9 cm; Wt 83.9 kg
[~2017-12-23 08:56] MED LIST changes: +CLON0.1T PO
[2017-12-23] MEDS ORDERED: LISI40TA PO (09:22)
[2017-12-23] MEDS ORDERED: AMLO5TAB4 PO (09:23)
[2017-12-23] MEDS ORDERED: LORA-404 PO (09:32)
[2017-12-23] MEDS ORDERED: ONDA4TAB8 PO (09:32)
--- NOTE | 2017-12-23 09:32 | ED General ---
General Chief Complaint: Cardiac/General Problems Stated Complaint: HIGH BLOOK PRESSURE, NAUSEA Nursing Triage Note: PT CO OF HYPERTENSION, HAS BEEN HAVING TROUBLE FOR A MONTH, STARTED NEW MEDS YESTERDAY, CO OF NAUSEA AND NOT FEELING GOOD Nursing Sepsis Screen: No Definite Risk Source of Information: Patient Exam Limitations: No Limitations History of Present Illness Date Seen by Provider: Dec 23, 2017 Time Seen by Provider: 09:25 Initial Comments PT ARRIVES VIA POV C/O ELEVATED BLOOD PRESSURE IS ONGOING PROBLEM FOR OVER A MONTH WAS DX WITH HTN 10-15 YEARS AGO AND HAD BEEN ON SAME BP MEDICATION FOR YEARS A COUPLE OF MONTHS AGO, BP WENT UP--PT RELATES TO TAKING OTC COLD MEDICATIONS-- BUT BLOOD PRESSURE MEDICATION WAS CHANGE--PT HAS NO IDEA WHAT BLOOD PRESSURE MEDICATION/NAME OF MEDICACTION THAT HE HAD BEEN TAKING ALL THESE YEARS PT STATES HE HAS HAD MEDICATIONS CHANGED SINCE THEN--WAS ON MEDICATION WITH DIURETIC, AND IT CAUSED HIS LEGS TO CRAMP. WAS ON NORVASC AND IT CAUSED HIS LEGS TO SWELL IS CURRENTLY ON LISINOPRIL, AND THEN AMLODIPINE WAS RECENTLY ADDED PT STATES HE TOOK HIS FIRST DOSE OF AMLODIPINE YESTERDAY PT SEEN IN ER 12/21/17 FOR SAME--WAS GIVEN RX OF CLONIDINE TO TAKE PRN ELEVATED BLOOD PRESSURE PT HAS BEEN CHECKING HIS BLOOD PRESSURE MULTIPLE TIMES EVERY DAY, OFTEN TIMES HE IS CHECKING IT FREQUENTLY EVERY 5-15 MINUTES STATES HE "DOESN'T FEEL GOOD" PT HAS NOT TAKEN HIS BLOOD PRESSURE MEDICATIONS TODAY--LAST TOOK THEM AT 11:30 YESTERDAY, THEN DID TAKE A CLONIDINE LAST PM WHEN BP GOT UP TO 170'S/90'S PT C/O NAUSEA STATES HE CAN SOMETIMES FEEL HIS HEART BEAT STATES HIS ARMS GET HOT AND HE DOESN'T HAVE AN APPETITE AND HE FEELS WEAK PT STATES HE IS AFRAID TO TAKE THESE MEDICATIONS "BECAUSE OF HOW IT MAKES ME FEEL AND I CAN'T WORK IF I'M GOING TO FEEL LIKE THIS" NO CHEST PAIN NO SHORTNESS OF BREATH NO PARESTHESIAS OR MOTOR DEFICITS NO PALPITATIONS/ IRREGULAR HEART BEATH NO HEADACHE NO VISION CHANGES NO DIZZINESS STATES HE "HASN'T BEEN ABLE TO WORK ALL WEEK" BECAUSE OF THIS ( CONSTRUCTION) -- BUT DID WORK YESTERDAY FOR ABOUT 4 HOURS, THEN 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 MILES ON MONDAY FOR THIS PROBLEM. PCP: DR. GARIBAY--STARTED SEEING HER A MONTH AGO, USED TO SEE DR. VALDES Allergies and Home Medications Allergies Coded Allergies: dexamethasone (Verified Allergy, Unknown, HTN, POSSIBLE SEROTONIN SYNDROME , 10/18/17) meperidine (Unverified Adverse Reaction, Unknown, 10/31/14) Home Medications Amlodipine Besylate 5 Mg Tablet, 5 MG PO DAILY, (Reported) Clonidine HCl 0.1 Mg Tablet, 0.1 MG PO BID PRN for high blood pressure Prescribed by: MAGNO FOLEY on 12/21/17 1840 Lisinopril 40 Mg Tablet, 40 MG PO DAILY, (Reported) Lorazepam 0.5 Mg Tablet, 0.5 MG PO TID PRN for ANXIETY Prescribed by: GABRIELA BLAIR on 12/23/17 0932 [place] 3 Polyunsat Fatty Acids 1,000 Mg Cap, 1,000 MG PO DAILY, (Reported) Omeprazole Magnesium 20 Mg Tablet.dr, 20 MG PO DAILY Prescribed by: BUCK MAN on 02/09/15 1240 Ondansetron 4 Mg Tab.rapdis, 4 MG PO Q4H Prescribed by: GABRIELA BLAIR on 12/23/17 0932 Tramadol HCl 50 Mg Tablet, 50 MG PO BID Prescribed by: BUCK MAN on 02/09/15 1240 Patient Home Medication List Home Medication List Reviewed: Yes Review of Systems Constitutional: see HPI Respiratory: no symptoms reported Cardiovascular: see HPI Gastrointestinal: see HPI; No abdominal pain; loss of appetite, nausea; No vomiting Genitourinary: no symptoms reported Musculoskeletal: no symptoms reported Skin: no symptoms reported Psychiatric/Neurological: See HPI, Anxiety; Denies Headache, Denies Numbness, Denies Paresthesia, Denies Weakness Hematologic/Lymphatic: No Symptoms Reported Immunological/Allergic: no symptoms reported Past Jecltyd-Ovqghr-Xqwouf Hx Patient Social History Alcohol Use: Occasionally Uses Number of Drinks Today: AA Alcohol Beverage of Choice: Beer Recreational Drug Use: No Smoking Status: Former Smoker Type Used: Cigarettes Former Smoker, Quit: October 10, 2006 Recent Foreign Travel: No Contact w/Someone Who Travel: No Recent Infectious Disease Expo: No Recent Hopitalizations: No Physical Abuse: No Sexual Abuse: No Seasonal Allergies Seasonal Allergies: No Past Medical History Surgeries: Yes (BACK, HERNIAS, FACE LACERATION, ) Appendectomy, Gallbladder, Orthopedic Respiratory: No Cardiac: Yes Hypertension Neurological: No Reproductive Disorders: No HIV/AIDS: No Genitourinary: No Gastrointestinal: Yes (TAKES PRILOSEC) Gastroesophageal Reflux, Diverticulosis Musculoskeletal: Yes (BACK SURGERY, RECENT L1 COMPRESSION FX, ) Chronic Back Pain Endocrine: No HEENT: No Loss of Vision: Bilateral Hearing Impairment: Denies Cancer: No Psychosocial: No Nursing Suicide Risk Score: 0 Integumentary: No Blood Disorders: No Adverse Reaction/Blood Tranf: No Family Medical History No Pertinent Family Hx Physical Exam Vital Signs Vital Signs - First Documented 12/23/17 09:05 Temp 97.6 Pulse 58 Resp 18 B/P (MAP) 166/77 (106) Pulse Ox 99 Capillary Refill : Less Than 3 Seconds Height, Weight, BMI Height: 6'0" Weight: 185lbs. 0.0oz. 83.493907wq; 26.5 BMI Method:Stated General Appearance: No Apparent Distress, WD/WN, Anxious Neck: Full Range of Motion, Normal Inspection, Non Tender, Supple; No Carotid Bruit, No JVD Respiratory: Chest Non Tender, Normal Breath Sounds, No Accessory Muscle Use, No Respiratory Distress Cardiovascular: Regular Rate, Rhythm, No Edema, No Gallop, No JVD, No Murmur, Normal Peripheral Pulses Gastrointestinal: Non Tender, Soft Extremity: Normal Inspection, Normal Range of Motion, Non Tender, No Calf Tenderness, No Pedal Edema Neurologic/Psychiatric: Alert, Oriented x3, No Motor/Sensory Deficits, demand planner II- XII Norm as Tested, Other (VERY ANXIOUS) Skin: Normal Color, Warm/Dry Progress/Results/Core Measures Suspected Sepsis Recent Fever Within 48 Hours: No Infection Criteria Present: None New/Unexplained Altered Menta: No Sepsis Screen: No Definite Risk SIRS Temperature:97.6 Pulse: 58 Respiratory Rate: 18 Blood Pressure 166 /77 Mean: 106 Results/Orders Vital Signs/I&O 12/23/17 12/23/17 09:05 10:06 Temp 97.6 Pulse 58 58 Resp 18 18 B/P (MAP) 166/77 (106) 144/81 (106) Pulse Ox 99 99 Capillary Refill : Less Than 3 Seconds Blood Pressure Mean: 106 Progress Note : Progress Note BP QUICKLY DOWN TO 130'S/70'S SHORTLY AFTER ARRIVAL, AFTER PT CALMED DOWN PT EXTREMELY ANXIOUS ABOUT BLOOD PRESSURE AND PULSE RATE THROUGHOUT ER STAY-- REASSURED PT AND PT ADVISED THAT HE SHOULD NOT TAKE HIS BLOOD PRESSURE SO OFTEN, THIS IS CAUSING HIM TO HAVE INCREASED ANXIETY Departure Impression Primary Impression: Labile hypertension Additional Impression: Anxiety Disposition: 01 HOME, SELF-CARE Condition: Improved Departure-Patient Inst. Referrals: MIQUEL MILES MD FACP FACC [facility] CHEO GARIBAY DO (PCP/Family) Primary Care Physician Patient Instructions: Anxiety, Adult (DC), Controlling Your Blood Pressure Through Lifestyle, DASH Diet, Heart Healthy Diet, High Blood Pressure (DC) Add. Discharge Instructions: CONTINUE YOUR MEDICATIONS PRESCRIBED FOLLOW UP WITH DR. MILES NEXT WEEK SCHEDULED All discharge instructions reviewed with patient and/or family. Voiced understanding. Scripts Ondansetron (Zofran Odt) 4 Mg Tab.rapdis 4 MG PO Q4H for Nausea/Vomiting, #10 TAB Prov: GABRIELA BLAIR DO 12/23/17 Lorazepam (Ativan) 0.5 Mg Tablet 0.5 MG PO TID PRN for ANXIETY, #10 TAB Prov: GABRIELA BLAIR DO 12/23/17 GABRIELA BLAIR DO Dec 23, 2017 09:32
[2017-12-23 10:06] VITALS: BP 144/81
--- OUTSIDE RECORDS SUMMARY | 2017-12-24 11:12 | XMS REPORT ---
Author Author DELILAH DUPREE Organization [facility] Address [address] [place] [address] Care Team Providers Care Parks And Recreation Manager Name Role Phone DELILAH DUPREE Unavailable PROBLEMS Unknown Problems ALLERGIES Substance Reaction Event Type Date Status Demerol Unknown Drug Allergy Jul, Active ENCOUNTERS Encounter Location Date Diagnosis [facility] [address] [facility] [id number] [address] Jul, Muscle cramps at night R25.2 IMMUNIZATIONS No Known Immunizations SOCIAL HISTORY Never Assessed REASON FOR VISIT Extremity pain rated at 10. Previous back injury and lumbar surgery. Pt taking otc medication for leg cramps taken at 2100 last night and is not currently taking any vitamins[facility] Activity Details Follow Up prn Reason: VITAL SIGNS Height 72 in 2017-08-05 Weight 201 lbs 2017-08-05 Temperature 98.8 degrees Fahrenheit 2017-08-05 Heart Rate 64 bpm 2017-08-05 Respiratory Rate 16 2017-08-05 BMI 27.26 kg/m2 2017-08-05 Blood pressure systolic 130 mmHg 2017-08-05 Blood pressure diastolic 76 mmHg 2017-08-05 MEDICATIONS Medication Instructions Dosage Frequency Start Date End Date Duration Status Fish Oil Active Losartan Potassium-HCTZ 100-12.5 MG Orally Once a day 1 tablet 24h Active Metamucil Fiber Active RESULTS No Results PROCEDURES No Known procedures INSTRUCTIONS MEDICATIONS ADMINISTERED No Known Medications MEDICAL (GENERAL) HISTORY Type Description Date Medical History staph infection Medical History mrsa Surgical History cholecystectomy Surgical History appendectomy Surgical History holes punctured in small intestine during cholecystectomy Surgical History 4th and 5th lumbar ruptured age 30 Hospitalization History surgery
--- OUTSIDE RECORDS SUMMARY | 2017-12-24 11:25 | XMS REPORT | Continuity of Care Document ---
Author Author [facility] Organization [facility] Address Unknown Phone Unavailable Allergies Active Description Code Type Severity Reaction Onset Reported/Identified Relationship to Patient Clinical Status Yes SHRAVAN INHIBITORS UNKNOWN RESPIRATORY - COUGHI Yes DEMEROL UNKNOWN OTHER Yes DEXTROMETHORPHAN HBR SEVERE OTHER Yes GABAPENTIN UNKNOWN DIZZINESS Yes GABAPENTIN MODERATE OTHER Yes NKANo Known Allergies NKA Miscellaneous Allergy Unknown N/A 12/10/2005 Yes meperidine [id number] Drug Allergy Unknown N/A 10/31/2014 Yes dexamethasone [id number] Drug Allergy Unknown HTN, POSSIBLE S 10/18/2017 [...] MARY Weinstein Ot E888.9 12/03/2014 MELCHOR ALDANA [employer] Ot 557.1 12/03/2014 MELCHOR ALDANA [employer] Ot 562.10 12/03/2014 MELCHOR ALDANA [employer] Ot 787.3 12/03/2014 MELCHOR ALDANA [employer] Ot 787.91 12/03/2014 MELCHOR ALDANA [employer] Ot 789.00 12/16/2014 Ot 401.9 12/16/2014 Ot 401.9 12/16/2014 Ot 789.00 12/16/2014 KEISHA ARANDA, MARY L Ot 401.9 12/16/2014 KEISHA ARANDA, MARY Weinstein Ot 805.4 12/16/2014 KEISHA ARANDA, MARY Weinstein Ot E000.8 12/16/2014 KEISHA ARANDA, MARY Weinstein Ot E888.9 12/16/2014 MELCHOR ALDANA [employer] Ot 557.1 12/16/2014 MELCHOR ALDANA [employer]PER[employer] Ot 562.10 12/16/2014 MELCHOR ALDANA SUPERVIS[employer] Ot 787.3 12/16/2014 MELCHOR ALDANA SUPERVIS[employer] Ot 787.91 12/16/2014 MELCHOR ALDANA [employer]PER[employer] Ot 789.00 12/16/2014 KEISHA ARANDA, MARY Weinstein Ot 805.4 12/16/2014 KEISHA ARANDA, MARY Weinstein Ot E000.8 12/16/2014 KEISHA ARANDA, MARY Weinstein Ot E888.9 12/16/2014 KEISHA ARANDA, MARY Weinstein Ot 805.4 12/16/2014 KEISHA ARANDA, MARY Weinstein Ot E000.8 12/16/2014 MARY VALDES MD Ot E888.9 12/16/2014 MELCHOR ALDANA [employer] Ot 557.1 12/16/2014 ALDANAMELCHOR J [employer]PERVIS[employer] Ot 562.10 12/16/2014 ALDANAMELCHOR J [employer]PERVIS[employer] Ot 787.3 12/16/2014 ALDANAHORTENCIALY J SUPERVISOR [employer] Ot 787.91 12/16/2014 ALDANAHORTENCIALY J [employer]PERVIS[employer] Ot 789.00 02/05/2015 Ot 401.9 02/05/2015 Ot 401.9 02/05/2015 Ot 789.00 02/05/2015 KEISHA ARANDA, MARY Weinstein Ot 401.9 02/05/2015 KEISHA ARANDA, MARY Weinstein Ot 805.4 02/05/2015 KEISHA ARANDA, MARY Weinstein Ot E000.8 02/05/2015 KEISHA ARANDA, MARY Weinstein Ot E888.9 02/05/2015 ALDANAMELCHOR SUPERVISOR [employer] Ot 557.1 02/05/2015 ALDANAMELCHOR SUPERVISOR [employer] Ot 562.10 02/05/2015 ALDANAMELCHOR SUPERVISOR [employer] Ot 787.3 02/05/2015 ALDANAMELCHOR J [employer]PERVISOR [employer] Ot 787.91 02/05/2015 ALDANAMELCHOR J [employer]PERVISOR [employer] Ot 789.00 02/05/2015 Ot 733.13 02/05/2015 APPLE ARANDA, IJEOMA Dickerson Ot 733.13 02/05/2015 APPLE ARANDA, IJEOMA Dickerson Ot V72.63 02/05/2015 IJEOMA CHIU MD Ot V74.8 02/05/2015 ALDANAMELCHOR J [employer]PERVISOR [employer] Ot 557.1 02/05/2015 ALDANAMELCHOR J SUPERVISOR [employer] Ot 562.10 02/05/2015 ALDANAMELCHOR J SUPERVISOR [employer] Ot 787.3 02/05/2015 ALDANAMELCHOR J SUPERVISOR [employer] Ot 787.91 02/05/2015 ALDANA, MELCHOR J [employer]PERVIS[employer] Ot 789.00 02/05/2015 KEISHA ARANDA, MARY Weinstein Ot 805.4 02/05/2015 KEISHA ARANDA, MARY Weinstein Ot E000.8 02/05/2015 KEISHA ARANDA, MARY Weinstein Ot E888.9 02/09/2015 KEISHA ARANDA, MARY Weinstein Ot 805.4 02/09/2015 KEISHA ARANDA, MARY Weinstein Ot E000.8 02/09/2015 KEISHA ARANDA, MARY Weinstein Ot E888.9 02/09/2015 MELCHOR ALDANA [employer]PER[employer] Ot 557.1 02/09/2015 MELCHOR ALDANA SUPERVISOR [employer] Ot 562.10 02/09/2015 MELCHOR ALADNA SUPERVISOR [employer] Ot 787.3 02/09/2015 MELCHOR ALDANA SUPERVISOR [employer] Ot 787.91 02/09/2015 MELCHOR ALDANA [employer]PER[employer] Ot 789.00 02/09/2015 IJEOMA CHIU MD Ot 733.00 OSTEOPOROSIS NOS 02/09/2015 IJEOMA CHIU MD Ot 733.13 PATHOLOGIC FRACTURE, VERTEBRAE 02/09/2015 IJEOMA CHIU MD Ot M81.0 AGE-RELATED OSTEOPOROSIS W/O CURRENT PAT 02/12/2015 Ot 733.13 02/19/2015 IJEOMA CHIU MD Ot 733.13 02/19/2015 IJEOMA CIHU MD Ot V72.63 02/19/2015 IJEOMA CHIU MD Ot V74.8 03/02/2015 Ot 733.13 03/02/2015 IJEOMA CHIU MD Ot 733.13 03/02/2015 IJEOMA CHIU MD Ot V72.63 03/02/2015 IJEOMA CHIU MD Ot V74.8 03/03/2015 MARY VALDES MD Ot 805.4 03/03/2015 MARY VALDES MD Ot E000.8 03/03/2015 MARY VALDES MD Ot E888.9 03/03/2015 MELCHOR ALDANA Tuan [employer]PER[employer] Ot 557.1 03/03/2015 MELCHOR ALDANA Tuan [employer]PER[employer] Ot 562.10 03/03/2015 MELCHOR ALDANA Tuan [employer]PERVIS[employer] Ot 787.3 03/03/2015 MELCHOR ALDANA Tuan [employer]PERVIS[employer] Ot 787.91 03/03/2015 MELCHOR ALDANA Tuan [employer]PER[employer] Ot 789.00 03/03/2015 Ot 733.13 03/03/2015 IJEOMA [...] ARANDA, MARY Weinstein Ot E888.9 03/16/2015 ALDANAMELCHOR SUPERVISOR [employer] Ot 557.1 03/16/2015 ALDANAMELCHOR SUPERVISOR [employer] Ot 562.10 03/16/2015 ALDANA, MELCHOR Dickerson SUPERVISOR [employer] Ot 787.3 03/16/2015 ALDANA, MELCHOR Dickerson SUPERVISOR [employer] Ot 787.91 03/16/2015 ALDANA, MELCHOR Tuan [employer]PERVIS[employer] Ot 789.00 03/16/2015 Ot 733.13 03/16/2015 IJEOMA [...] MARY VALDES MD Ot E888.9 09/08/2015 ALDANAMELCHOR SUPERVISOR [employer] Ot 557.1 09/08/2015 ALDANAMELCHOR SUPERVISOR [employer] Ot 562.10 09/08/2015 ALDANAMELCHOR SUPERVISOR [employer] Ot 787.3 09/08/2015 ALDANAHORTENCIALY J SUPERVISOR [employer] Ot 787.91 09/08/2015 ALDANAMELCHOR J [employer]PERVISOR [employer] Ot 789.00 09/08/2015 Ot 733.13 09/08/2015 IJEOMA CHIU MD Ot 733.13 09/08/2015 IJEOMA CHIU MD Ot V72.63 09/08/2015 IJEOMA CHIU MD Ot V74.8 09/08/2015 IJEOMA CHIU MD Ot Z01.812 09/08/2015 MARY VALDES MD Ot 562.10 09/08/2015 MARY VALDES MD Ot 780.60 09/08/2015 KEISHA ARANDA, MARY Weinstein Ot 805.4 09/08/2015 MARY VALDES MD Ot E000.8 09/08/2015 MARY VALDES MD Ot E888.9 09/08/2015 MELCHOR ALDANA SUPER[employer] Ot 557.1 09/08/2015 ALDANAMELCHOR SUPERVISOR [employer] Ot 562.10 09/08/2015 ALDANAMELCHOR SUPERVISOR [employer] Ot 787.3 09/08/2015 ALDANAMELCHOR J [employer]PERVIS[employer] Ot 787.91 09/08/2015 ALDANAMELCHOR J [employer]PERVISOR [employer] Ot 789.00 09/08/2015 Ot 733.13 09/08/2015 IJEOMA [...] E888.9 FALL NOS 11/02/2015 MELCHOR ALDANA [employer] Ot 557.1 CHR VASC INSUFF INTEST 11/02/2015 MELCHOR ALDANA [employer]PER[employer] Ot 562.10 DIVERTICULOSIS COLON (W/O MENT OF HEMORR 11/02/2015 MELCHOR ALDANA [employer]PER[employer] Ot 787.3 FLATUL/ERUCTAT/GAS PAIN 11/02/2015 MELCHOR ALDANA [employer] Ot 787.91 DIARRHEA 11/02/2015 MELCHOR ALDANA [employer]PER[employer] Ot 789.00 ABDOMINAL PAIN, UNSPECIFIED SITE 11/02/2015 Ot 733.13 PATHOLOGIC FRACTURE, VERTEBRAE 11/02/2015 IJEOMA CIHU MD Ot 733.13 PATHOLOGIC FRACTURE, VERTEBRAE 11/02/2015 [...] E888.9 FALL NOS 11/02/2015 MELCHOR ALDANA [employer]PER[employer] Ot 557.1 CHR VASC INSUFF INTEST 11/02/2015 MELCHOR ALDANA SUPER[employer] Ot 562.10 DIVERTICULOSIS COLON (W/O MENT OF HEMORR 11/02/2015 MELCHOR ALDANA [employer]PER[employer] Ot 787.3 FLATUL/ERUCTAT/GAS PAIN 11/02/2015 MELCHOR ALDANA [employer]PER[employer] Ot 787.91 DIARRHEA 11/02/2015 MELCHOR ALDANA SUPER[employer] Ot 789.00 ABDOMINAL PAIN, UNSPECIFIED SITE 11/02/2015 [...] Ot E888.9 FALL NOS 11/25/2015 MELCHOR ALDANA [employer]PER[employer] Ot 557.1 CHR VASC INSUFF INTEST 11/25/2015 MELCHOR ALDANA SUPERVIS[employer] Ot 562.10 DIVERTICULOSIS COLON (W/O MENT OF HEMORR 11/25/2015 MELCHOR ALDANA SUPER[employer] Ot 787.3 FLATUL/ERUCTAT/GAS PAIN 11/25/2015 MELCHOR ALDANA [employer]PER[employer] Ot 787.91 DIARRHEA 11/25/2015 MELCHOR ALDANA SUPERVISOR [employer] Ot 789.00 ABDOMINAL PAIN, UNSPECIFIED SITE 11/25/2015 [...] STENOSIS, LUMBAR REGION 11/25/2015 KEISHA ARANDA, MARY Weinstein Ot 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, 12/04/2015 KESIHA ARANDA, MARY Weinstein Ot M12.9 ARTHROPATHY, UNSPECIFIED [...] Ot E000.8 OTHER EXTERNAL CAUSE STATUS 12/31/2015 KEISAH ARANDA, MARY L Ot E888.9 FALL NOS 12/31/2015 MELCHOR ALDANA [employer] Ot 557.1 CHR VASC INSUFF INTEST 12/31/2015 MELCHOR ALDANA SUPERVIS[employer] Ot 562.10 DIVERTICULOSIS COLON (W/O MENT OF HEMORR 12/31/2015 MELCHOR ALDANA SUPER[employer] Ot 787.3 FLATUL/ERUCTAT/GAS PAIN 12/31/2015 MELCHOR ALDANA SUPERVIS[employer] Ot 787.91 DIARRHEA 12/31/2015 MELCHOR ALDANA SUPERVIS[employer] Ot 789.00 ABDOMINAL PAIN, UNSPECIFIED SITE 12/31/2015 [...] E888.9 FALL NOS 04/01/2016 MELCHOR ALDANA SUPER[employer] Ot 557.1 CHR VASC INSUFF INTEST 04/01/2016 MELCHOR ALDANA SUPER[employer] Ot 562.10 DIVERTICULOSIS COLON (W/O MENT OF HEMORR 04/01/2016 MELCHOR ALDANA SUPER[employer] Ot 787.3 FLATUL/ERUCTAT/GAS PAIN 04/01/2016 MELCHOR ALDANA SUPER[employer] Ot 787.91 DIARRHEA 04/01/2016 MELCHOR ALDANA SUPER[employer] Ot 789.00 ABDOMINAL PAIN, UNSPECIFIED SITE 04/01/2016 [...] E888.9 FALL NOS 09/06/2016 MELCHOR ALDANA SUPER[employer] Ot 557.1 CHR VASC INSUFF INTEST 09/06/2016 MELCHOR ALDANA SUPERVISOR [employer] Ot 562.10 DIVERTICULOSIS COLON (W/O MENT OF HEMORR 09/06/2016 MELCHOR ALDANA SUPERVIS[employer] Ot 787.3 FLATUL/ERUCTAT/GAS PAIN 09/06/2016 MELCHOR ALDANA [employer] Ot 787.91 DIARRHEA 09/06/2016 MELCHOR ALDANA SUPER[employer] Ot 789.00 ABDOMINAL PAIN, UNSPECIFIED SITE 09/06/2016 [...] VALDES W I10 ESSENTIAL (PRIMARY) HYPERTENSION 08/07/2017 AMRY VALDES MD L Ot 805.4 FX LUMBAR [...] 787.3 FLATUL/ERUCTAT/GAS PAIN 08/21/2017 MELCHOR ALDANA [employer] Ot 787.91 DIARRHEA 08/21/2017 MELCHOR ALDANA SUPER[employer] Ot 789.00 ABDOMINAL PAIN, UNSPECIFIED SITE 08/21/2017 [...] E888.9 FALL NOS 08/23/2017 HORTENCIA ALDANADOMINGO Dickerson SUPERVIS[employer] Ot 557.1 CHR VASC INSUFF INTEST 08/23/2017 ALDANA MELCHOR TYSONP Ot 562.10 DIVERTICULOSIS COLON (W/O MENT OF HEMORR 08/23/2017 HORTENCIA ALDANADOMINGO Dickerson SUPER[employer] Ot 787.3 FLATUL/ERUCTAT/GAS PAIN 08/23/2017 KATYA MELCHOR J [employer]PER[employer] Ot 787.91 DIARRHEA 08/23/2017 MARILU ALDANAFRANCISCO JAVIER Dickerson SU[employer] Ot 789.00 ABDOMINAL PAIN, UNSPECIFIED SITE 08/23/2017 [...] MD Ot M12.9 ARTHROPATHY, UNSPECIFIED 08/23/2017 MARY VADLES MD Ot M48.06 SPINAL STENOSIS, LUMBAR REGION [...] is no data. Results Test Result Range [facility] - 07/06/16 09:05 Anion Gap 16 6-14 [...] 0.8 mg/dL 0.2-1.2 TP 7.2 g/dL 6.0-8.3 [facility] - 06/13/17 10:30 Anion Gap 14 [...] Status Pt. Type Provider Facility Loc./Unit Complaint [id number] 12/23/2017 08:59:00 12/23/2017 10:05:00 DIS Emergency JOHNNIE DO, GABRIELA K [facility] ER HIGH BLOOD PRESSURE, NAUSEA [id number] 2017 09:34:00 2017 23:59:59 CLS Outpatient RYAN VAUGHAN APRN [facility] CARD HTN,DIAPHORESIS [id number] 2017 17:29:00 2017 19:07:00 DIS Emergency MAGNO FOLEY APRN [facility] ER HIGH BP [id number] 10/18/2017 19:08:00 10/18/2017 22:50:00 DIS Emergency BHAKTI PANIAGUA MD [facility] ER HIGH BP [id number] 08/21/2017 12:37:00 08/21/2017 23:59:59 CLS Outpatient MARY VALDES MD [facility] RAD CERVICALGIA [id number] 09/06/2016 09:37:00 09/06/2016 23:59:59 CLS Outpatient MARY VALDES MD [facility] RAD DIVERTICULITIS [id number] 04/01/2016 07:19:00 04/01/2016 08:15:00 DIS Outpatient BELEN BOLES MD [facility] CARD DISC DISORER [id number] 12/25/2015 08:37:00 12/25/2015 23:59:59 CLS Outpatient BEELN BOLES MD [facility] CARD DISC DISORDER W/ RADICULOPATHY [id number] 10/27/2015 08:58:00 10/27/2015 23:59:59 CLS Outpatient MARY VALDES MD [facility] RAD LUMBAR PAIN, RADICULOPATHY [id number] 03/03/2015 18:35:00 03/03/2015 23:59:59 CLS Outpatient MARY VALDES MD [facility] RAD FEVER,ABD PAIN, DIVERTICULOSIS [id number] 02/09/2015 10:55:00 02/09/2015 16:55:00 DIS Outpatient IJEOMA CHIU MD [facility] SDC COMPRESSION FRACTURE [id number] 02/04/2015 09:19:00 02/04/2015 23:59:59 CLS Outpatient IJEOMA CHIU MD [facility] PREOP COMPRESSION FRACTURE [id number] 10/31/2014 14:27:00 10/31/2014 23:59:59 CLS Outpatient MELCHOR ALDANA SUPER[employer] [facility] RAD ABD PAIN,DIARRHEA [id number] 10/31/2014 17:30:00 10/31/2014 18:54:00 DIS Emergency NING RIOS MD [facility] ER LOWER INTESTINE BLOCKAGE [id number] 10/30/2014 14:36:00 10/30/2014 23:59:59 CLS Outpatient MARY VALDES MD [facility] RAD LUMBAR PAIN, FALL [id number] 12/05/2012 09:20:00 12/05/2012 23:59:59 CLS Outpatient MARY VALDES MD [facility] LAB HTN [id number] 01/26/2015 09:08:00 Document Registration [id number] 10/30/2014 14:35:00 Document Registration [id number] 08/31/2012 14:55:00 Document Registration [id number] 07/04/2012 08:44:00 Document Registration [id number] 08/29/2011 13:00:00 Document Registration [id number] 02/01/2011 07:54:00 Document Registration [id number] 12/18/2017 08:36:13 12/18/2017 23:59:59 CLS Outpatient [id number] 10/26/2017 12:06:00 10/26/2017 23:59:00 DIS Outpatient MARY VALDES [id number] 10/16/2017 16:45:00 10/16/2017 23:59:00 DIS Outpatient Reyna Thorpe [id number] 10/16/2017 11:24:00 10/16/2017 23:59:00 DIS Outpatient Reyna Thorpe [id number] 06/13/2017 11:53:00 06/13/2017 23:59:00 DIS Outpatient MARY VALDES [id number] 09/06/2016 08:40:00 09/06/2016 23:59:00 DIS Outpatient MARY VALDES [id number] 07/06/2016 09:18:00 07/06/2016 23:59:00 DIS Outpatient MARY VALDES [id number] 08/28/2017 15:07:46 08/28/2017 23:59:59 CLS Outpatient [id number] 08/05/2017 09:20:00 08/05/2017 23:59:59 CLS Outpatient [facility]
== END 2017-12-23 10:05 | disposition home or self-care (01) ==
LOC: EDUNIT# 08:56 → ER 08:59
DX: I10 Essential (primary) hypertension (principal); F41.9 Anxiety disorder, unspecified; K21.9 Gastro-esophageal reflux disease without esophagitis; Z88.8 Allergy status to other drugs, medicaments and biological substances; Z88.5 Allergy status to narcotic agent; Z87.891 Personal history of nicotine dependence; Z90.49 Acquired absence of other specified parts of digestive tract
CPT/HCPCS: 99283

== ENCOUNTER 2018-01-06 14:57 | Emergency (ER) | payer BC, OTHER ==
[~2018-01-06] VITALS: Ht 182.9 cm; Wt 83.9 kg
[~2018-01-06 14:57] MED LIST changes: +AMLO5TAB4 PO; +LISI40TA PO; +LORA-404 PO; +ONDA4TAB8 PO
[2018-01-06] MEDS ORDERED: cloNIDine 0.1 MG (CATAPRES) TAB PO ONE (15:15)
[2018-01-06] MEDS ORDERED: ALPRAZolam 0.25 MG (XANAX) TAB PO ONE (15:15)
--- NOTE | 2018-01-06 15:23 | ED Cardiac General ---
History of Present Illness General Chief Complaint: Cardiac/General Problems Stated Complaint: ELEV BP Nursing Triage Note: pt verbalized 12/[address] johnson for elevated BP. started on Clonidine and Losartan Potassium. pt states last night blood pressure high, headache, weakness, coughing, and palpations. Source: patient Exam Limitations: no limitations History of Present Illness Date Seen by Provider: Jan 06, 2018 Time Seen by Provider: 15:17 Initial Comments to ER with reports of hypertension. He's been seen here 3 times this month with a complaint of hypertension. He is intolerant of SHRAVAN inhibitors due to cough. And was started on losartan 100 mg. He had a persistent cough from the SHRAVAN inhibitor, or at least he believed it was from the SHRAVAN inhibitor, and it has not resolved with switching to losartan. He is also on clonidine 0.1 mg twice a day. He saw Dr. Alvarez for this on the . He denies chest pain. He had a bit of a headache last night, went to bed and awakened this morning with a persistent headache, checked his blood pressure and found it to be 180/100. He was seen here on 12/23 for hypertension, given a prescription for lorazepam as he appeared very anxious. However, he never took the lorazepam as he states he never felt anxious or the need for it. Timing/Duration: 1-2 days Severity: moderate Activities at Onset: none NTG SL SENIOR FINANCIAL: No ASA po SENIOR FINANCIAL: No Allergies and Home Medications Allergies Coded Allergies: dexamethasone (Verified Allergy, Unknown, HTN, POSSIBLE SEROTONIN SYNDROME , 10/18/17) meperidine (Unverified Adverse Reaction, Unknown, 10/31/14) Home Medications Amlodipine Besylate 5 Mg Tablet, 5 MG PO DAILY, (Reported) Clonidine HCl 0.1 Mg Tablet, 0.1 MG PO BID PRN for high blood pressure Prescribed by: MAGNO FOLEY on 12/21/17 1840 Lisinopril 40 Mg Tablet, 40 MG PO DAILY, (Reported) Lorazepam 0.5 Mg Tablet, 0.5 MG PO TID PRN for ANXIETY Prescribed by: GABRIELA BLAIR on 12/23/17 0932 [place] 3 Polyunsat Fatty Acids 1,000 Mg Cap, 1,000 MG PO DAILY, (Reported) Omeprazole Magnesium 20 Mg Tablet., 20 MG PO DAILY Prescribed by: BUCK MAN on 8/31/15 1240 Ondansetron 4 Mg Tab.rapdis, 4 MG PO Q4H Prescribed by: GABRIELA BLAIR on 12/23/17 0932 Tramadol HCl 50 Mg Tablet, 50 MG PO BID Prescribed by: BUCK MAN on 02/09/15 1240 Patient Home Medication List Home Medication List Reviewed: Yes Review of Systems Constitutional: see HPI EENTM: No Symptoms Reported Respiratory: Cough Cardiovascular: Denies Edema, Denies Irregular Heart Rate Gastrointestinal: See HPI Genitourinary: No Symptoms Reported Musculoskeletal: no symptoms reported Skin: no symptoms reported Psychiatric/Neurological: No Symptoms Reported Endocrine: No Symptoms Reported Hematologic/Lymphatic: No Symptoms Reported Past Kyivnsi-Aunnnp-Dxdexf Hx Patient Social History Alcohol Beverage of Choice: Beer Type Used: Cigarettes Former Smoker, Quit: October 10, 2006 Recent Foreign Travel: No Contact w/Someone Who Travel: No Recent Infectious Disease Expo: No Recent Hopitalizations: No Physical Abuse: No Sexual Abuse: No Mistreated: No Fear: No Seasonal Allergies Seasonal Allergies: No Past Medical History Surgeries: Yes (BACK, HERNIAS, FACE LACERATION, ) Appendectomy, Gallbladder, Orthopedic Respiratory: No Cardiac: Yes Hypertension Neurological: No Reproductive Disorders: No HIV/AIDS: No Genitourinary: No Gastrointestinal: Yes (TAKES PRILOSEC) Gastroesophageal Reflux, Diverticulosis Musculoskeletal: Yes (BACK SURGERY, RECENT L1 COMPRESSION FX, ) Chronic Back Pain Endocrine: No HEENT: No Loss of Vision: Bilateral Hearing Impairment: Denies Cancer: No Psychosocial: No Nursing Suicide Risk Score: 0 Integumentary: No Blood Disorders: No Adverse Reaction/Blood Tranf: No Family Medical History No Pertinent Family Hx Physical Exam Vital Signs Vital Signs - First Documented 01/06/18 15:04 Temp 97.5 Pulse 66 Resp 20 B/P (MAP) 210/100 (136) Pulse Ox 98 O2 Delivery Room Air Capillary Refill : Less Than 3 Seconds Height, Weight, BMI Height: 6'0" Weight: 185lbs. 0.0oz. 83.173447gb; 26.5 BMI Method:Stated General Appearance: No Apparent Distress, WD/WN, Anxious HEENT: PERRL/EOMI, TMs Normal Neck: Full Range of Motion, Normal Inspection Respiratory: No Accessory Muscle Use, No Respiratory Distress Cardiovascular: Regular Rate, Rhythm, Normal Peripheral Pulses Gastrointestinal: Normal Bowel Sounds, Non Tender, Soft Extremity: Normal Capillary Refill, Normal Inspection Neurologic/Psychiatric: Alert, Oriented x3 Skin: Normal Color, Warm/Dry Progress/Results/Core Measures Results/Orders My Orders Orders - MAGNO FOLEY APRN Alprazolam Tablet (Xanax Tablet) (01/06/18 15:15) Clonidine Tablet (Catapres Tablet) (01/06/18 15:15) Medications Given in ED Current Medications Medications Dose Ordered Sig/Ankita Route Start Time Stop Time Status Last Admin Dose Admin Alprazolam 0.5 mg ONCE ONCE PO 01/06/18 15:15 01/06/18 15:17 DC 01/06/18 15:19 0.5 MG Clonidine HCl 0.1 mg ONCE ONCE PO 01/06/18 15:15 01/06/18 15:17 DC 01/06/18 15:19 0.1 MG Vital Signs/I&O 01/06/18 01/06/18 15:04 15:44 Temp 97.5 Pulse 66 55 Resp 20 20 B/P (MAP) 210/100 (136) 142/98 (113) Pulse Ox 98 98 O2 Delivery Room Air Room Air Blood Pressure Mean: 136 Departure Communication (Admissions) 1609-I gave him 0.1 mg of clonidine and 0.5 mg of alprazolam. Heart rate is 57, blood pressure is 149/87. It was 210/100 on arrival. Despite not feeling anxious , anxiolytics did significantly reduce his blood pressure. Impression Primary Impression: Labile hypertension Disposition: 01 HOME, SELF-CARE Condition: Improved Departure-Patient Inst. Decision time for Depature: 15:51 Referrals: CHEO GARIBAY DO (PCP/Family) Primary Care Physician Patient Instructions: High Blood Pressure (DC) Add. Discharge Instructions: 1. follow up with dr Johnson later next week. Despite the cough, given your current troubles with high blood pressure I would keep taking the losartan until Dr Johnson tells you otherwise. All discharge instructions reviewed with patient and/or family. Voiced understanding. MAGNO FOLEY APRN Jan 06, 2018 15:23
[2018-01-06 15:44] VITALS: BP 142/98
[2018-01-06 16:10] VITALS: BP 149/87
== END 2018-01-06 16:10 | disposition home or self-care (01) ==
LOC: EDUNIT# 14:57 → ER 14:58
DX: I10 Essential (primary) hypertension (principal); K21.9 Gastro-esophageal reflux disease without esophagitis; Z87.19 Personal history of other diseases of the digestive system; Z90.89 Acquired absence of other organs; Z88.8 Allergy status to other drugs, medicaments and biological substances
CPT/HCPCS: 99283

== ENCOUNTER → 2018-01-11 | Outpatient (CLI) | payer BC ==
[2018-01-11 08:02] LABS: BASOPHILS % (AUTO) 0 % (0-10); EOSINOPHILS # (AUTO) 0.1 10^3/uL (0.0-0.3); EOSINOPHILS % (AUTO) 2 % (0-10); HEMATOCRIT 40 % (40-54); HEMOGLOBIN 14.1 G/DL (13.3-17.7); LYMPHOCYTES # (AUTO) 1.2 X 10^3 (1.0-4.0); LYMPHOCYTES % (AUTO) 18 % (12-44); MEAN CORPUSCULAR HEMOGLOBIN 31 PG (25-34); MEAN CORPUSCULAR HGB CONC 35 G/DL (32-36); MEAN CORPUSCULAR VOLUME 89 FL (80-99); MEAN PLATELET VOLUME 9.8 FL (7.4-10.4); MONOCYTES # (AUTO) 0.6 X 10^3 (0.0-1.0); MONOCYTES % (AUTO) 10 % (0-12); NEUTROPHILS # (AUTO) 4.6 X 10^3 (1.8-7.8); NEUTROPHILS % (AUTO) 70 % (42-75); PLATELET COUNT 274 10^3/uL (130-400); RED BLOOD COUNT 4.49 10^6/uL (4.35-5.85); RED CELL DISTRIBUTION WIDTH 12.4 % (10.0-14.5); WHITE BLOOD COUNT 6.5 10^3/uL (4.3-11.0)
[2018-01-11 08:22] LABS: ERYTHROCYTE SEDIMENTATION RATE 13 MM/HR (0-30)
[2018-01-11 08:30] LABS: ALANINE AMINOTRANSFERASE 12 U/L (0-55); ALBUMIN 4.4 GM/DL (3.2-4.5); ALKALINE PHOSPHATASE 61 U/L (40-136); BUN/CREATININE RATIO 13; CALCIUM 9.9 MG/DL (8.5-10.1); CARBON DIOXIDE 26 MMOL/L (21-32); CHLORIDE 107 MMOL/L (98-107); CREATININE SERUM 0.83 MG/DL (0.60-1.30); GFR ESTIMATED > 60; GLUCOSE 107 MG/DL (70-105); MAGNESIUM 1.9 MG/DL (1.8-2.4); POTASSIUM 4.1 MMOL/L (3.6-5.0); SODIUM 142 MMOL/L (135-145); TOTAL PROTEIN 6.9 GM/DL (6.4-8.2)
--- NOTE | 2018-01-11 08:41 | Diagnostic Imaging Report ---
INDICATION: Hypertension. TECHNIQUE: Multiple real-time grayscale images were obtained over the kidneys in various projections. Duplex evaluation of renal arteries was also attempted. FINDINGS: Right kidney measures 11.3 x 5.5 x 5.8 cm and left kidney measures 12.1 x 6.3 x 4.8 cm. Cortical thickness and echogenicity appears normal. No calculi or hydronephrosis is identified. Renal Doppler evaluation is somewhat limited. The proximal right renal artery as well as the proximal and mid left renal arteries were obscured by bowel gas. Visualized renal artery velocities are within normal limits. Doppler waveforms are unremarkable. Renal artery to aorta ratios are within normal limits. IMPRESSION: Somewhat compromised study due to bowel gas. No significant abnormality is detected. No definite findings to suggest renal artery stenosis are identified. Dictated by: Dictated on workstation # [id number]
== END ==
LOC: CARD 06:46
PROVIDERS: ATTEND Nurse Practitioner Family
DX: I10 Essential (primary) hypertension (principal)
CPT/HCPCS: 36415; 80053; 83735; 84443; 85025; 85652; 93306; 93975

== ENCOUNTER 2018-01-16 22:02 | Emergency (ER) | payer BC ==
[~2018-01-16] VITALS: Ht 182.9 cm; Wt 88.5 kg
--- OUTSIDE RECORDS SUMMARY | 2018-01-16 22:08 | XMS REPORT | Continuity of Care Document ---
Author Author [facility] Organization [facility] Address Unknown Phone Unavailable Allergies Active Description Code Type Severity Reaction Onset Reported/Identified Relationship to Patient Clinical Status Yes SHRAVAN INHIBITORS UNKNOWN RESPIRATORY - COUGHI Yes DEMEROL UNKNOWN OTHER Yes DEXTROMETHORPHAN HBR SEVERE OTHER Yes GABAPENTIN UNKNOWN DIZZINESS Yes GABAPENTIN MODERATE OTHER Yes NKANo Known Allergies NKA Miscellaneous Allergy Unknown N/A 12/10/2005 Yes meperidine [id number] Drug Allergy Unknown N/A 10/31/2014 Yes dexamethasone [id number] Drug Allergy Unknown HTN, POSSIBLE S 10/18/2017 [...] MARY Weinstein Ot E888.9 12/03/2014 MELCHOR ALDANA PICKER TENDER Ot 557.1 12/03/2014 MELCHOR ALDANA PICKER TENDER Ot 562.10 12/03/2014 MELCHOR ALDANA PICKER TENDER Ot 787.3 12/03/2014 MELCHOR ALDANA PICKER TENDER Ot 787.91 12/03/2014 MELCHOR ALDANA PICKER TENDER Ot 789.00 12/16/2014 Ot 401.9 12/16/2014 Ot 401.9 12/16/2014 Ot 789.00 12/16/2014 KEISHA ARANDA, MARY L Ot 401.9 12/16/2014 KEISHA ARANDA, MARY Weinstein Ot 805.4 12/16/2014 KEISHA ARANDA, MARY Weinstein Ot E000.8 12/16/2014 KEISHA ARANDA, MARY Weinstein Ot E888.9 12/16/2014 MELCHOR ALDANA PICKER TENDER Ot 557.1 12/16/2014 MELCHOR ALDANA PICKER TENDER Ot 562.10 12/16/2014 MELCHOR ALDANA PICKER TENDER Ot 787.3 12/16/2014 MELCHOR ALDANA PICKER TENDER Ot 787.91 12/16/2014 MELCHOR ALDANA PICKER TENDER Ot 789.00 12/16/2014 KEISHA ARANDA, MARY Weinstein Ot 805.4 12/16/2014 KEISHA ARANDA, MARY Weinstein Ot E000.8 12/16/2014 KEISHA ARANDA, MARY Weinstein Ot E888.9 12/16/2014 KEISHA ARANDA, MARY Weinstein Ot 805.4 12/16/2014 KEISHA ARANDA, MARY Weinstein Ot E000.8 12/16/2014 MARY VALDES MD Ot E888.9 12/16/2014 MELCHOR ALDANA PICKER TENDER Ot 557.1 12/16/2014 ALDANAMELCHOR J PICKER TENDER Ot 562.10 12/16/2014 ALDANAMELCHOR J PICKER TENDER Ot 787.3 12/16/2014 ALDANAHORTENCIALY J PICKER TENDER Ot 787.91 12/16/2014 ALDANAHORTENCIALY J PICKER TENDER Ot 789.00 02/05/2015 Ot 401.9 02/05/2015 Ot 401.9 02/05/2015 Ot 789.00 02/05/2015 KEISHA ARANDA, MARY Weinstein Ot 401.9 02/05/2015 KEISHA ARANDA, MARY Weinstein Ot 805.4 02/05/2015 KEISHA ARANDA, MARY Weinstein Ot E000.8 02/05/2015 KEISHA ARANDA, MARY Weinstein Ot E888.9 02/05/2015 ALDANAMELCHOR PICKER TENDER Ot 557.1 02/05/2015 ALDANAMELCHOR PICKER TENDER Ot 562.10 02/05/2015 ALDANAMELCHOR PICKER TENDER Ot 787.3 02/05/2015 ALDANAMELCHOR J PICKER TENDER Ot 787.91 02/05/2015 ALDANAMELCHOR J PICKER TENDER Ot 789.00 02/05/2015 Ot 733.13 02/05/2015 APPLE ARANDA, IJEOMA Dickerson Ot 733.13 02/05/2015 APPLE ARANDA, IJEOMA Dickerson Ot V72.63 02/05/2015 IJEOMA CHIU MD Ot V74.8 02/05/2015 ALDANAMELCHOR J PICKER TENDER Ot 557.1 02/05/2015 ALDANAMELCHOR J PICKER TENDER Ot 562.10 02/05/2015 ALDANAMELCHOR J PICKER TENDER Ot 787.3 02/05/2015 ALDANAMELCHOR J PICKER TENDER Ot 787.91 02/05/2015 ALDANA, MELCHOR J PICKER TENDER Ot 789.00 02/05/2015 KEISHA ARANDA, MARY Weinstein Ot 805.4 02/05/2015 KEISHA ARANDA, MARY Weinstein Ot E000.8 02/05/2015 KEISHA ARANDA, MARY Weinstein Ot E888.9 02/09/2015 KEISHA ARANDA, MARY Weinstein Ot 805.4 02/09/2015 KEISHA ARANDA, MARY Weinstein Ot E000.8 02/09/2015 KEISHA ARANDA, MARY Weinstein Ot E888.9 02/09/2015 MELCHOR ALDANA PICKER TENDER Ot 557.1 02/09/2015 MELCHOR ALDANA PICKER TENDER Ot 562.10 02/09/2015 MELCHOR ALDANA PICKER TENDER Ot 787.3 02/09/2015 MELCHOR ALDANA PICKER TENDER Ot 787.91 02/09/2015 MELCHOR ALDANA PICKER TENDER Ot 789.00 02/09/2015 IJEOMA CHIU MD Ot [...] MD Ot E888.9 03/03/2015 MELCHOR ALDANA Tuan PICKER TENDER Ot 557.1 03/03/2015 MELCHOR ALDANA Tuan PICKER TENDER Ot 562.10 03/03/2015 MELCHOR ALDANA Tuan PICKER TENDER Ot 787.3 03/03/2015 MELCHOR ALDANA Tuan PICKER TENDER Ot 787.91 03/03/2015 MELCHOR ALDANA Tuan PICKER TENDER Ot 789.00 03/03/2015 Ot 733.13 03/03/2015 IJEOMA [...] ARANDA, MARY Weinstein Ot E888.9 03/16/2015 ALDANAMELCHOR PICKER TENDER Ot 557.1 03/16/2015 ALDANAMELCHOR PICKER TENDER Ot 562.10 03/16/2015 ALDANA, MELCHOR Dickerson PICKER TENDER Ot 787.3 03/16/2015 ALDANA, MELCHOR Dickerson PICKER TENDER Ot 787.91 03/16/2015 ALDANA, MELCHOR Tuan PICKER TENDER Ot 789.00 03/16/2015 Ot 733.13 03/16/2015 IJEOMA [...] MARY VALDES MD Ot E888.9 09/08/2015 ALDANAMELCHOR PICKER TENDER Ot 557.1 09/08/2015 ALDANAMELCHOR PICKER TENDER Ot 562.10 09/08/2015 ALDANAMELCHOR PICKER TENDER Ot 787.3 09/08/2015 ALDANAHORTENCIALY J PICKER TENDER Ot 787.91 09/08/2015 ALDANAMELCHOR J PICKER TENDER Ot 789.00 09/08/2015 Ot 733.13 09/08/2015 IJEOMA CHIU MD Ot 733.13 09/08/2015 IJEOMA CHIU MD Ot V72.63 09/08/2015 IJEOMA CHIU MD Ot V74.8 09/08/2015 IJEOMA CHIU MD Ot Z01.812 09/08/2015 MARY VALDES MD Ot 562.10 09/08/2015 MARY VALDES MD Ot 780.60 09/08/2015 KEISHA ARANDA, MARY Weinstein Ot 805.4 09/08/2015 MARY VALDES MD Ot E000.8 09/08/2015 MARY VALDES MD Ot E888.9 09/08/2015 MELCHOR ALDANA PICKER TENDER Ot 557.1 09/08/2015 ALDANAMELCHOR PICKER TENDER Ot 562.10 09/08/2015 ALDANAMELCHOR PICKER TENDER Ot 787.3 09/08/2015 ALDANAMELCHOR J PICKER TENDER Ot 787.91 09/08/2015 ALDANAMELCHOR J PICKER TENDER Ot 789.00 09/08/2015 Ot 733.13 09/08/2015 IJEOMA [...] Ot E888.9 FALL NOS 11/02/2015 MELCHOR ALDANA PICKER TENDER Ot 557.1 CHR VASC INSUFF INTEST 11/02/2015 MELCHOR ALDANA PICKER TENDER Ot 562.10 DIVERTICULOSIS COLON (W/O MENT OF HEMORR 11/02/2015 MELCHOR ALDANA PICKER TENDER Ot 787.3 FLATUL/ERUCTAT/GAS PAIN 11/02/2015 MELCHOR ALDANA PICKER TENDER Ot 787.91 DIARRHEA 11/02/2015 MELCHOR ALDANA PICKER TENDER Ot 789.00 ABDOMINAL PAIN, UNSPECIFIED SITE 11/02/2015 [...] Ot E888.9 FALL NOS 11/02/2015 MELCHOR ALDANA PICKER TENDER Ot 557.1 CHR VASC INSUFF INTEST 11/02/2015 MELCHOR ALDANA PICKER TENDER Ot 562.10 DIVERTICULOSIS COLON (W/O MENT OF HEMORR 11/02/2015 MELCHOR ALDANA PICKER TENDER Ot 787.3 FLATUL/ERUCTAT/GAS PAIN 11/02/2015 MELCHOR ALDANA PICKER TENDER Ot 787.91 DIARRHEA 11/02/2015 MELCHOR ALDANA PICKER TENDER Ot 789.00 ABDOMINAL PAIN, UNSPECIFIED SITE 11/02/2015 [...] Ot E888.9 FALL NOS 11/25/2015 MELCHOR ALDANA PICKER TENDER Ot 557.1 CHR VASC INSUFF INTEST 11/25/2015 MELCHOR ALDANA PICKER TENDER Ot 562.10 DIVERTICULOSIS COLON (W/O MENT OF HEMORR 11/25/2015 MELCHOR ALDANA PICKER TENDER Ot 787.3 FLATUL/ERUCTAT/GAS PAIN 11/25/2015 MELCHOR ALDANA PICKER TENDER Ot 787.91 DIARRHEA 11/25/2015 MELCHOR ALDANA PICKER TENDER Ot 789.00 ABDOMINAL PAIN, UNSPECIFIED SITE 11/25/2015 [...] Ot E888.9 FALL NOS 12/31/2015 MELCHOR ALDANA PICKER TENDER Ot 557.1 CHR VASC INSUFF INTEST 12/31/2015 MELCHOR ALDANA PICKER TENDER Ot 562.10 DIVERTICULOSIS COLON (W/O MENT OF HEMORR 12/31/2015 MELCHOR ALDANA PICKER TENDER Ot 787.3 FLATUL/ERUCTAT/GAS PAIN 12/31/2015 MELCHOR ALDANA PICKER TENDER Ot 787.91 DIARRHEA 12/31/2015 MELCHOR ALDANA PICKER TENDER Ot 789.00 ABDOMINAL PAIN, UNSPECIFIED SITE 12/31/2015 [...] Ot E888.9 FALL NOS 04/01/2016 MELCHOR ALDANA PICKER TENDER Ot 557.1 CHR VASC INSUFF INTEST 04/01/2016 MELCHOR ALDANA PICKER TENDER Ot 562.10 DIVERTICULOSIS COLON (W/O MENT OF HEMORR 04/01/2016 MELCHOR ALDANA PICKER TENDER Ot 787.3 FLATUL/ERUCTAT/GAS PAIN 04/01/2016 MELCHOR ALDANA PICKER TENDER Ot 787.91 DIARRHEA 04/01/2016 MELCHOR ALDANA PICKER TENDER Ot 789.00 ABDOMINAL PAIN, UNSPECIFIED SITE 04/01/2016 [...] Weinstein Ot 805.4 FX LUMBAR VERTEBRA-CLOSE 09/06/2016 AMRY VALDES MD Ot E000.8 OTHER EXTERNAL CAUSE STATUS 09/06/2016 KEISHA ARANDA, MARY Weinstein Ot E888.9 FALL NOS 09/06/2016 MELCHOR ALDANA PICKER TENDER Ot 557.1 CHR VASC INSUFF INTEST 09/06/2016 MELCHOR ALDANA PICKER TENDER Ot 562.10 DIVERTICULOSIS COLON (W/O MENT OF HEMORR 09/06/2016 MELCHOR ALDANA PICKER TENDER Ot 787.3 FLATUL/ERUCTAT/GAS PAIN 09/06/2016 MELCHOR ALDANA PICKER TENDER Ot 787.91 DIARRHEA 09/06/2016 MELCHOR ALDANA PICKER TENDER Ot 789.00 ABDOMINAL PAIN, UNSPECIFIED SITE 09/06/2016 [...] L Ot 780.60 FEVER, UNSPECIFIED 09/06/2016 KEISHA AARNDA, MARY L Ot M12.9 ARTHROPATHY, UNSPECIFIED 09/06/2016 [...] Ot 787.3 FLATUL/ERUCTAT/GAS PAIN 08/21/2017 MELCHOR ALDANA PICKER TENDER Ot 787.91 DIARRHEA 08/21/2017 MELCHOR ALDANA PICKER TENDER Ot 789.00 ABDOMINAL PAIN, UNSPECIFIED SITE 08/21/2017 Ot 733.13 PATHOLOGIC FRACTURE, VERTEBRAE 08/21/2017 IJEOMA CHIU MD Ot 733.13 PATHOLOGIC FRACTURE, VERTEBRAE 08/21/2017 IJEOMA CHIU MD Ot V72.63 PRE-PROCEDURAL LABORATORY EXAMINATION 08/21/2017 IJEOMA CHIU MD Ot V74.8 SCREEN-BACTERIAL DIS NEC 08/21/2017 IJEOMA CHIU MD Ot Z01.812 ENCOUNTER FOR PREPROCEDURAL LABORATORY E 08/21/2017 KESIHA ARANDA, MARY Weinstein Ot 562.10 DIVERTICULOSIS COLON [...] E888.9 FALL NOS 08/23/2017 HORTENCIA ALDANADOMINGO Dickerson PICKER TENDER Ot 557.1 CHR VASC INSUFF INTEST 08/23/2017 ALDANA MELCHOR TYSONP Ot 562.10 DIVERTICULOSIS COLON (W/O MENT OF HEMORR 08/23/2017 HORTENCIA ALDANADOMINGO Dickerson PICKER TENDER Ot 787.3 FLATUL/ERUCTAT/GAS PAIN 08/23/2017 KATYA MELCHOR J PICKER TENDER Ot 787.91 DIARRHEA 08/23/2017 MARILU ALDANAFRANCISCO JAVIER Dickerson PICKER TENDER Ot 789.00 ABDOMINAL PAIN, UNSPECIFIED SITE 08/23/2017 [...] Thorpe W 729.82 CRAMP OF LIMB 10/16/2017 eRyna Thorpe R25.2 CRAMP AND SPASM 10/18/2017 Ot [...] 10/26/2017 MARY VALDES I10 ESSENTIAL (PRIMARY) HYPERTENSION 12/23/2017 GABRIELA BLAIR DO Ot F41.9 ANXIETY DISORDER, UNSPECIFIED 12/23/2017 GABRIELA BLAIR DO Ot I10 ESSENTIAL (PRIMARY) HYPERTENSION 12/23/2017 GABRIELA BLAIR DO Ot K21.9 GASTRO-ESOPHAGEAL REFLUX DISEASE WITHOUT 12/23/2017 GABRIELA BLAIR DO Ot Z87.891 PERSONAL HISTORY OF NICOTINE DEPENDENCE 12/23/2017 GABRIELA BLAIR DO Ot Z88.5 ALLERGY STATUS TO NARCOTIC AGENT STATUS 12/23/2017 GABRIELA BLAIR DO Ot Z88.8 ALLERGY STATUS TO OTH DRUG/MEDS/BIOL SUB 12/23/2017 GABRIELA BLAIR DO Ot 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 Results Test Result Range [facility] - 07/06/16 09:05 Anion Gap 16 [...] 0.8 mg/dL 0.2-1.2 TP 7.2 g/dL 6.0-8.3 BMP - 06/13/17 10:30 Anion Gap 14 6-14 [...] Status Pt. Type Provider Facility Loc./Unit Complaint [id number] 01/06/2018 14:58:00 01/06/2018 16:10:00 DIS Emergency MAGNO FOLEY APRN [facility] ER ELEV BP [id number] 12/23/2017 08:59:00 12/23/2017 10:05:00 DIS Emergency GABRIELA BLAIR DO [facility] ER HIGH BLOOD PRESSURE, NAUSEA [id number] 2017 09:34:00 2017 23:59:59 CLS Outpatient RYAN VAUGHAN SIGNAL ENGINEER [facility] CARD HTN,DIAPHORESIS [id number] 2017 17:29:00 2017 19:07:00 DIS Emergency FOLEYMAGNO SIGNAL ENGINEER [facility] ER HIGH BP [id number] 10/18/2017 19:08:00 10/18/2017 22:50:00 DIS Emergency BHAKTI PANIAGUA MD [facility] ER HIGH BP [id number] 08/21/2017 12:37:00 08/21/2017 23:59:59 CLS Outpatient MARY VALDES MD [facility] RAD CERVICALGIA [id number] 09/06/2016 09:37:00 09/06/2016 23:59:59 CLS Outpatient MARY VALDES MD [facility] RAD DIVERTICULITIS [id number] 04/01/2016 07:19:00 04/01/2016 08:15:00 DIS Outpatient BELEN BOLES MD [facility] CARD DISC DISORER [id number] 12/25/2015 08:37:00 12/25/2015 23:59:59 CLS Outpatient BELEN BOLES MD [facility] CARD DISC DISORDER W/ RADICULOPATHY [id number] 10/27/2015 08:58:00 10/27/2015 23:59:59 CLS Outpatient MARY VALDES MD [facility] RAD LUMBAR PAIN, RADICULOPATHY [id number] 03/03/2015 18:35:00 03/03/2015 23:59:59 CLS Outpatient MARY VALDES MD [facility] RAD FEVER,ABD PAIN, DIVERTICULOSIS [id number] 02/09/2015 10:55:00 02/09/2015 16:55:00 DIS Outpatient IJEOMA CHIU MD [facility] SDC COMPRESSION FRACTURE [id number] 02/04/2015 09:19:00 02/04/2015 23:59:59 CLS Outpatient IJEOMA CHIU MD [facility] PREOP COMPRESSION FRACTURE [id number] 10/31/2014 14:27:00 10/31/2014 23:59:59 CLS Outpatient ALDANA, MELCHOR Dickerson PICKER TENDER [facility] RAD ABD PAIN,DIARRHEA [id number] 10/31/2014 17:30:00 10/31/2014 18:54:00 DIS Emergency GABRIEL ARANDA, NING Levi [facility] ER LOWER INTESTINE BLOCKAGE [id number] 10/30/2014 14:36:00 10/30/2014 23:59:59 CLS Outpatient MARY VALDES MD [facility] RAD LUMBAR PAIN, FALL [id number] 12/05/2012 09:20:00 12/05/2012 23:59:59 CLS Outpatient MARY VALDES MD [facility] LAB HTN [id number] 01/26/2015 09:08:00 Document Registration [id number] 10/30/2014 14:35:00 Document Registration [id number] 08/31/2012 14:55:00 Document Registration [id number] 07/04/2012 08:44:00 Document Registration [id number] 08/29/2011 13:00:00 Document Registration [id number] 02/01/2011 07:54:00 Document Registration [id number] 01/02/2018 08:53:00 01/02/2018 23:59:59 CLS Outpatient [id number] 10/26/2017 12:06:00 10/26/2017 23:59:00 DIS Outpatient MARY VALDES [id number] 10/16/2017 16:45:00 10/16/2017 23:59:00 DIS Outpatient Reyna Thorpe [id number] 10/16/2017 11:24:00 10/16/2017 23:59:00 DIS Outpatient Reyna Thorpe [id number] 06/13/2017 11:53:00 06/13/2017 23:59:00 DIS Outpatient MARY VALDES [id number] 09/06/2016 08:40:00 09/06/2016 23:59:00 DIS Outpatient MARY VALDES [id number] 07/06/2016 09:18:00 07/06/2016 23:59:00 DIS Outpatient MARY VALDES [id number] 08/28/2017 15:07:46 08/28/2017 23:59:59 CLS Outpatient [id number] 08/05/2017 09:20:00 08/05/2017 23:59:59 CLS Outpatient [facility]
[2018-01-16] MEDS ORDERED: ASPIRIN 81 MG CHEW (CHILDREN'S ASA) PO ONE (22:30)
[2018-01-16 22:31] LABS: BASOPHILS % (AUTO) 0 % (0-10); EOSINOPHILS # (AUTO) 0.2 10^3/uL (0.0-0.3); EOSINOPHILS % (AUTO) 2 % (0-10); HEMATOCRIT 40 % (40-54); HEMOGLOBIN 14.5 G/DL (13.3-17.7); LYMPHOCYTES # (AUTO) 1.7 X 10^3 (1.0-4.0); LYMPHOCYTES % (AUTO) 24 % (12-44); MEAN CORPUSCULAR HEMOGLOBIN 32 PG (25-34); MEAN CORPUSCULAR HGB CONC 36 G/DL (32-36); MEAN CORPUSCULAR VOLUME 88 FL (80-99); MEAN PLATELET VOLUME 10.1 FL (7.4-10.4); MONOCYTES # (AUTO) 0.6 X 10^3 (0.0-1.0); MONOCYTES % (AUTO) 8 % (0-12); NEUTROPHILS # (AUTO) 4.9 X 10^3 (1.8-7.8); NEUTROPHILS % (AUTO) 66 % (42-75); PLATELET COUNT 251 10^3/uL (130-400); RED CELL DISTRIBUTION WIDTH 12.3 % (10.0-14.5); WHITE BLOOD COUNT 7.4 10^3/uL (4.3-11.0)
[2018-01-16 22:36] LABS: INR 0.9 (0.8-1.4); PROTHROMBIN TIME PATIENT 12.1 SEC (12.2-14.7)
[2018-01-16 22:43] LABS: ALANINE AMINOTRANSFERASE 14 U/L (0-55); ALBUMIN 4.4 GM/DL (3.2-4.5); ALKALINE PHOSPHATASE 78 U/L (40-136); BUN/CREATININE RATIO 11; CALCIUM 10.1 MG/DL (8.5-10.1); CARBON DIOXIDE 24 MMOL/L (21-32); CHLORIDE 105 MMOL/L (98-107); GFR ESTIMATED > 60; GLUCOSE 112 MG/DL (70-105); MAGNESIUM 1.6 MG/DL (1.8-2.4); POTASSIUM 3.8 MMOL/L (3.6-5.0); SODIUM 140 MMOL/L (135-145)
[2018-01-16] MEDS ORDERED: hydrALAZINE (APESOLINE) 20 MG/ML VIAL IV ONE ×2 (22:45→23:45)
[2018-01-16 22:49] LABS: MYOGLOBIN SERUM 22.6 NG/ML (10.0-92.0)
[2018-01-16] MEDS ORDERED: MAGNESIUM OXIDE (MAG-OX)400 MG TAB ONE (22:54)
[2018-01-16] MEDS ORDERED: MAGNESIUM OXIDE (MAG-OX)400 MG TAB PO ONE (23:00)
--- NOTE | 2018-01-16 23:24 | ED Cardiac General ---
History of Present Illness General Chief Complaint: Cardiac/General Problems Stated Complaint: BP HIGH Nursing Triage Note: PT STATES HEADACHE AND ELEVATED BLOOD PRESSURE. PT VERBALIZED HOME BP 188/108 PT STATES TOOK HYDRAZALINE 10MG X4 TIMES TODAY, LAST TIME 2125, AND ATIVAN AT 1847 , NO CHANGE. STATES RECENTLY HAD ECHO AND LABS APPT WITH DEV IN AM. Source: patient History of Present Illness Date Seen by Provider: Jan 16, 2018 Time Seen by Provider: 22:20 Initial Comments PT ARRIVES VIA POV FROM HOME C/O ELEVATED BP BP TONIGHT WAS UP TO 188/108 - 190/104 PRIOR TO ARRIVAL. BP IS 231/106 ON ARRIVAL HERE PT HAS HAD ONGOING ISSUES WITH ELEVATED BLOOD PRESSURE FOR THE LAST 1-2 MONTHS PT HAS BEEN ON LOSARTAN 100 MG DAILY PT HAS BEEN REFERRED TO DR. MILES BY DR. GARIBAY FOR BLOOD PRESSURE PT IS NOW SEEING DR. MÉNDEZ FOR BLOOD PRESSURE. WAS SEEN LAST Monday AND EKG WAS DONE. AND PT WAS STARTED ON LORAZEPAM AND HYDRALAZINE BID AND BP > 160 SYSTOLIC TOOK LORAZEPAM AT 1847, AND HAS TAKEN HYDRALAZINE 4 TIMES TODAY, LAST DOSE AT 2125 HAS TESTS LAST Monday01/11/18 FOR LAB, ECHOCARDIOGRAM AND RENAL ARTERY ULTRASOUND PT WAS INSTRUCTED BY DR. MÉNDEZ TO CHECK HIS BLOOD PRESSURE 3 TIMES A DAY AND KEEP A DIARY. HAS AN APPOINTMENT WITH DR. MÉNDEZ FOR FOLLOW UP TOMORROW PT STATES HE WAS ON LOSARTAN 100 MG FOR YEARS AND WAS FINE. HAS HAD HTN FOR 10- 15 YEARS IN OCTOBER, PT HAD TAKEN MUCINEX DM FOR COLD SYMPTOMS AND IT CAUSED BP TO BE SIGNIFICANTLY ELEVATED ( PT HAD ALSO BEEN STARTED ON NEW BLOOD PRESSURE MEDICATION AT THAT TIME--POSSIBLY LOSARTAN 100 MG + HCTZ 12.5, AND WAS SEEN IN ER 10/18/17, AND PT HAS HAD PROBLEMS CONTROLLING HIS BLOOD PRESSURE EVER SINCE HCTZ CAUSED LEGS TO CRAMP WAS SWITCHED TO NORVASC, BUT IT CAUSED LEG SWELLING SWITCHED TO LISINOPRIL AT SOME POINT, AMLODIPINE WAS ADDED TO LISINOPRIL THEN WAS SWITCHED TO LOSARTAN + AMLODIPINE, BUT WHEN HE WENT TO PHARMACY TO [facility], THEY DID NOT HAVE COMBINATION PILL--HAD 2 SEPARATE BOTTLES -EACH MEDICATION IN IT'S OWN BOTTLE, AND FOR UNKNOWN REASON HE ONLY PICKED UP THE LOSARTAN 100 MG AND NOT THE AMLODIPINE. PT IS NO LONGER TAKING DIURETIC COMBINATION WITH LOSARTAN, ONLY TAKING LOSARTAN 100 MG DAILY PT HAS BEEN SEEING BOTH DR. VALDES AND DR. GARIBAY, WELL DR. MILES AND DR. MÉNDEZ--ALL FOR THIS PROBLEM BOTH PT AND VERY ANXIOUS ABOUT HIS BLOOD PRESSURE PT HAS MILD HEADACHE NO VISION CHANGES HAS HAD SLIGHT DIZZINESS HAS HAD SLIGHT NAUSEA NO PARESTHESIAS OR MOTOR DEFICITS. NO PALPITATIONS, JUST FEELS LIKE HIS HEART IS BEATING HARD. NO CHEST PAIN OR SHORTNESS OF BREATH NO SWELLING IN LEGS/ FEET OR PAIN IN CALVES. STATES HE CAN TELL WHEN HIS BLOOD PRESSURE IS UP, BECAUSE THE INSIDE OF HIS ARMS FOREARMS WILL START TO FEEL HOT AND HE WILL SUDDENLY HAVE DIARRHEA. PT HAS HAD MULTIPLE VISITS TO ER RECENTLY FOR THIS PROBLEM --5 VISITS SINCE OCTOBER BY HISTORY, PT HAS BEEN CHECKING HIS BLOOD PRESSURE MULTIPLE TIMES EVERY DAY, FREQUENTLY EVERY 5-15 MINUTES. PT HAS ALSO BEEN PRESCRIBED CLONIDINE TO TAKE PRN, BUT IS NO LONGER TAKING THAT. Allergies and Home Medications Allergies Coded Allergies: dexamethasone (Verified Allergy, Unknown, HTN, POSSIBLE SEROTONIN SYNDROME , 10/18/17) meperidine (Unverified Adverse Reaction, Unknown, 10/31/14) Home Medications Amlodipine Besylate 5 Mg Tablet, 5 MG PO DAILY, (Reported) Clonidine HCl 0.1 Mg Tablet, 0.1 MG PO BID PRN for high blood pressure Prescribed by: MAGNO FOLEY on 12/21/17 1840 Lisinopril 40 Mg Tablet, 40 MG PO DAILY, (Reported) Lorazepam 0.5 Mg Tablet, 0.5 MG PO TID PRN for ANXIETY Prescribed by: GABRIELA BLAIR on 12/23/17 0932 [place] 3 Polyunsat Fatty Acids 1,000 Mg Cap, 1,000 MG PO DAILY, (Reported) Omeprazole Magnesium 20 Mg Tablet.dr, 20 MG PO DAILY Prescribed by: BUCK MAN on 02/09/15 1240 Ondansetron 4 Mg Tab.rapdis, 4 MG PO Q4H Prescribed by: GABRIELA BLAIR on 12/23/17 0932 Tramadol HCl 50 Mg Tablet, 50 MG PO BID Prescribed by: BUCK MAN on 02/09/15 1240 Patient Home Medication List Home Medication List Reviewed: Yes Review of Systems Constitutional: dizziness Respiratory: No Symptoms Reported Cardiovascular: See HPI; Denies Chest Pain, Denies Edema; Lightheadedness; Denies Palpitations, Denies Syncope Gastrointestinal: See HPI; Denies Abdominal Pain; Nausea; Denies Vomiting Genitourinary: No Symptoms Reported Musculoskeletal: no symptoms reported Skin: no symptoms reported Psychiatric/Neurological: See HPI, Anxiety Endocrine: No Symptoms Reported Hematologic/Lymphatic: No Symptoms Reported Past Pgrmlut-Dwevop-Kuhltm Hx Patient Social History Alcohol Use: Occasionally Uses Alcohol Beverage of Choice: Beer Smoking Status: Former Smoker Type Used: Cigarettes Former Smoker, Quit: October 10, 2006 Recent Foreign Travel: No Contact w/Someone Who Travel: No Recent Infectious Disease Expo: No Recent Hopitalizations: No Seasonal Allergies Seasonal Allergies: No Past Medical History Surgeries: Yes (UNKNWON TYPE OF BACK SURGERY YEARS AGO; L1 KYPHOPLASTY 01/2015 ; HERNIA REPAIRS; FACE LACERATION, ) Appendectomy, Gallbladder, Orthopedic Respiratory: No Cardiac: Yes Hypertension Neurological: No Reproductive Disorders: No HIV/AIDS: No Genitourinary: No Gastrointestinal: Yes (TAKES PRILOSEC) Gastroesophageal Reflux, Diverticulosis Musculoskeletal: Yes (BACK SURGERY; L1 COMPRESSION FX WITH KYPHOPLASTY 01/2015 , ) Chronic Back Pain Endocrine: No HEENT: No Loss of Vision: Bilateral Hearing Impairment: Denies Cancer: No Psychosocial: Yes Anxiety Integumentary: No Blood Disorders: No Adverse Reaction/Blood Tranf: No Family Medical History No Pertinent Family Hx Physical Exam Vital Signs Vital Signs - First Documented 01/16/18 22:15 Temp 98.9 Pulse 65 Resp 20 B/P (MAP) 223/112 (149) Pulse Ox 99 O2 Delivery Room Air Capillary Refill : Less Than 3 Seconds Height, Weight, BMI Height: 6'0" Weight: 195lbs. 0.0oz. 88.481044wn; 26.5 BMI Method:Stated General Appearance: No Apparent Distress, WD/WN Neck: Full Range of Motion, Normal Inspection, Non Tender, Supple Respiratory: Normal Breath Sounds, No Accessory Muscle Use, No Respiratory Distress Cardiovascular: Regular Rate, Rhythm, No Edema, No JVD, No Murmur, Normal Peripheral Pulses Gastrointestinal: Normal Bowel Sounds, No Organomegaly, No Pulsatile Mass, Non Tender, Soft Extremity: Normal Capillary Refill, Normal Inspection, Normal Range of Motion, Non Tender, No Calf Tenderness, No Pedal Edema Neurologic/Psychiatric: Alert, Oriented x3, No Motor/Sensory Deficits, 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 Norm as Tested, Other (EXTREMELY ANXIOUS) Skin: Normal Color, Warm/Dry Progress/Results/Core Measures Results/Orders Lab Results Laboratory Tests Test 01/16/18 22:15 Range/Units White Blood Count 7.4 4.3-11.0 10^3/uL Red Blood Count 4.60 4.35-5.85 10^6/uL Hemoglobin 14.5 13.3-17.7 G/DL Hematocrit 40 40-54 % Mean Corpuscular Volume 88 80-99 FL Mean Corpuscular Hemoglobin 32 25-34 PG Mean Corpuscular Hemoglobin Concent 36 32-36 G/DL Red Cell Distribution Width 12.3 10.0-14.5 % Platelet Count 251 130-400 10^3/uL Mean Platelet Volume 10.1 7.4-10.4 FL Neutrophils (%) (Auto) 66 42-75 % Lymphocytes (%) (Auto) 24 12-44 % Monocytes (%) (Auto) 8 0-12 % Eosinophils (%) (Auto) 2 0-10 % Basophils (%) (Auto) 0 0-10 % Neutrophils # (Auto) 4.9 1.8-7.8 X 10^3 Lymphocytes # (Auto) 1.7 1.0-4.0 X 10^3 Monocytes # (Auto) 0.6 0.0-1.0 X 10^3 Eosinophils # (Auto) 0.2 0.0-0.3 10^3/uL Basophils # (Auto) 0.0 0.0-0.1 10^3/uL Prothrombin Time 12.1 L 12.2-14.7 SEC INR Comment 0.9 0.8-1.4 Activated Partial Thromboplast Time 37 H 24-35 SEC Sodium Level 140 135-145 MMOL/L Potassium Level 3.8 3.6-5.0 MMOL/L Chloride Level 105 98-107 MMOL/L Carbon Dioxide Level 24 21-32 MMOL/L Anion Gap 11 5-14 MMOL/L Blood Urea Nitrogen 9 7-18 MG/DL Creatinine 0.80 0.60-1.30 MG/DL Estimat Glomerular Filtration Rate > 60 BUN/Creatinine Ratio 11 Glucose Level 112 H 70-105 MG/DL Calcium Level 10.1 8.5-10.1 MG/DL Corrected Calcium 9.8 8.5-10.1 MG/DL Magnesium Level 1.6 L 1.8-2.4 MG/DL Total Bilirubin 1.0 0.1-1.0 MG/DL Aspartate Amino Transf (AST/SGOT) 14 5-34 U/L Alanine Aminotransferase (ALT/SGPT) 14 0-55 U/L Alkaline Phosphatase 78 40-136 U/L Myoglobin 22.6 10.0-92.0 NG/ML Troponin I < 0.30 <0.30 NG/ML B-Type Natriuretic Peptide 121.1 H <100.0 PG/ML Total Protein 7.0 6.4-8.2 GM/DL Albumin 4.4 3.2-4.5 GM/DL My Orders Orders - GABRIELA BLAIR DO Cbc With Automated Diff (01/16/18 22:23) Magnesium (01/16/18 22:23) Chest 1 View, Ap/Pa Only (01/16/18 22:23) Ekg Tracing (01/16/18 22:23) Cardiac Profile 1 (01/16/18 22:23) Comprehensive Metabolic Panel (01/16/18 22:23) Myoglobin Serum (01/16/18 22:23) Protime With Inr (01/16/18 22:23) Partial Thromboplastin Time (01/16/18 22:23) O2 (01/16/18 22:23) Monitor-Rhythm Ecg Trace Only (01/16/18 22:23) Lipid Panel (01/17/18 06:00) Aspirin Chewable Tablet (Baby Aspirin Ch (01/16/18 22:30) Saline Lock/Iv-Start (01/16/18 22:23) BNP (01/16/18 22:23) Hydralazine Injection (Apresoline Inject (01/16/18 22:45) Magnesium Oxide Tablet (Mag Ox Tablet) (01/16/18 23:00) Magnesium Oxide Tablet (Mag Ox Tablet) (01/16/18 22:54) Hydralazine Injection (Apresoline Inject (01/16/18 23:45) Lorazepam Injection (Ativan Injection) (01/17/18 00:00) Medications Given in ED Current Medications Medications Dose Ordered Sig/Ankita Route Start Time Stop Time Status Last Admin Dose Admin Aspirin 324 mg ONCE ONCE PO 01/16/18 22:30 01/16/18 22:32 DC 01/16/18 22:33 324 MG Hydralazine HCl 10 mg ONCE ONCE IV 01/16/18 22:45 01/16/18 22:46 DC 01/16/18 22:45 10 MG Hydralazine HCl 10 mg ONCE ONCE IV 01/16/18 23:45 01/16/18 23:46 DC 01/16/18 23:44 10 MG Magnesium Oxide 1,200 mg ONCE ONCE PO 01/16/18 23:00 01/16/18 23:08 DC 01/16/18 23:02 1,200 MG Vital Signs/I&O 01/16/18 22:15 Temp 98.9 Pulse 65 Resp 20 B/P (MAP) 223/112 (149) Pulse Ox 99 O2 Delivery Room Air Blood Pressure Mean: 149 Progress Progress Note : Progress Note PT AND BOTH CONTINUE TO HAVE INCREASING ANXIETY ABOUT HIS BLOOD PRESSURE AND WHAT TO DO IF/WHEN HIS BLOOD PRESSURE GOES UP AGAIN. ADVISED TO TAKE AN ADDITIONAL LORAZEPAM AND HYDRALAZINE IF HIS BLOOD PRESSURE IS > 160/90 GIVEN HYDRALAZINE + ATIVAN IN ER, IN ADDITIONAL TO ORAL MAGNESIUM--STATES HE USED TO TAKE MAGNESIUM WITH VIT D AND B FOR LEG CRAMPS, BUT HAD TO STOP DUE TO DIARRHEA EVERY TIME HE TOOK MAGNESIUM BLOOD PRESSURE DOWN SIGNIFICANTLY AT DISMISSAL Initial ECG Impression Date: Jan 16, 2018 Initial ECG Impression Time: 22:44 Initial ECG Rate: 66 Initial ECG Rhythm: Normal Sinus Initial ECG Impression: Normal Initial ECG Comparisson: Unchanged Departure Impression Primary Impression: Poorly-controlled hypertension Additional Impressions: Anxiety Hypomagnesemia Disposition: 01 HOME, SELF-CARE Condition: Improved Departure-Patient Inst. Referrals: Salazar MÉNDEZ MD NO,LOCAL PHYSICIAN (PCP) Primary Care Physician CHEO GARIBAY DO Patient Instructions: Anxiety, Adult (DC), Controlling Your Blood Pressure Through Lifestyle, Heart Healthy Diet, High Blood Pressure (DC) Add. Discharge Instructions: TAKE YOUR MEDICATIONS PRESCRIBED FOLLOW UP WITH DR. MÉNDEZ TOMORROW SCHEDULED All discharge instructions reviewed with patient and/or family. Voiced understanding. GABRIELA BLAIR DO Jan 16, 2018 23:24
[2018-01-16] MEDS ORDERED: LORazepam INJ 2 MG/ML (ATIVAN) VIAL ONE (23:48)
[2018-01-17] MEDS ORDERED: LORazepam INJ 2 MG/ML (ATIVAN) VIAL IVP ONE
[2018-01-17 00:10] VITALS: BP 167/88
--- NOTE | 2018-01-17 07:42 | Diagnostic Imaging Report ---
EXAMINATION: Chest radiograph, portable AP view. DATE: January 16, 2018 at 2235 hours. INDICATION: 62-year-old male, hypertension. Chest pain. COMPARISON: December 21, 2017. FINDINGS: Stable overall appearance of the cardiomediastinal silhouette. There is no identified pneumothorax. There is no large pleural effusion. There is no identified focal airspace consolidation. IMPRESSION: No identified acute cardiopulmonary abnormality. Dictated by: Dictated on workstation # [id number]
== END 2018-01-17 00:10 | disposition home or self-care (01) ==
LOC: EDUNIT# 22:02 → ER 22:03
DX: I10 Essential (primary) hypertension (principal); F41.9 Anxiety disorder, unspecified; E83.42 Hypomagnesemia; K21.9 Gastro-esophageal reflux disease without esophagitis; Z88.8 Allergy status to other drugs, medicaments and biological substances; Z87.891 Personal history of nicotine dependence; Z87.19 Personal history of other diseases of the digestive system; Z90.89 Acquired absence of other organs
CPT/HCPCS: 36415; 71045; 80053; 83735; 83874; 83880; 84484; 85025; 85610; 85730; 93005; 93041; 96374; 96375; 96376

== ENCOUNTER → 2018-02-09 | Outpatient (CLI) | payer BC ==
[~2018-02-09] MED LIST changes: +CIPR500T4; +DILT120C82; +ESCI5TAB12; +LOSA1TAB23
[2018-02-09 17:04] LABS: BASOPHILS % (AUTO) 0 % (0-10); EOSINOPHILS # (AUTO) 0.2 10^3/uL (0.0-0.3); EOSINOPHILS % (AUTO) 1 % (0-10); HEMATOCRIT 39 % (40-54); HEMOGLOBIN 14.4 G/DL (13.3-17.7); LYMPHOCYTES # (AUTO) 1.9 X 10^3 (1.0-4.0); LYMPHOCYTES % (AUTO) 14 % (12-44); MEAN CORPUSCULAR HEMOGLOBIN 31 PG (25-34); MEAN CORPUSCULAR HGB CONC 37 G/DL (32-36); MEAN CORPUSCULAR VOLUME 84 FL (80-99); MEAN PLATELET VOLUME 9.7 FL (7.4-10.4); MONOCYTES % (AUTO) 7 % (0-12); NEUTROPHILS # (AUTO) 10.5 X 10^3 (1.8-7.8); NEUTROPHILS % (AUTO) 77 % (42-75); PLATELET COUNT 281 10^3/uL (130-400); RED BLOOD COUNT 4.58 10^6/uL (4.35-5.85); RED CELL DISTRIBUTION WIDTH 12.2 % (10.0-14.5); WHITE BLOOD COUNT 13.6 10^3/uL (4.3-11.0)
[2018-02-09 17:25] LABS: ALANINE AMINOTRANSFERASE 14 U/L (0-55); ALBUMIN 4.5 GM/DL (3.2-4.5); ALKALINE PHOSPHATASE 69 U/L (40-136); BILIRUBIN,TOTAL 1.1 MG/DL (0.1-1.0); BUN/CREATININE RATIO 12; CALCIUM 9.8 MG/DL (8.5-10.1); CARBON DIOXIDE 23 MMOL/L (21-32); CHLORIDE 98 MMOL/L (98-107); CREATININE SERUM 1.12 MG/DL (0.60-1.30); GFR ESTIMATED > 60; GLUCOSE 126 MG/DL (70-105); POTASSIUM 3.8 MMOL/L (3.6-5.0); SODIUM 131 MMOL/L (135-145); TOTAL PROTEIN 7.1 GM/DL (6.4-8.2)
== END ==
LOC: LAB 16:42
PROVIDERS: ATTEND Nurse Practitioner Family
DX: I10 Essential (primary) hypertension (principal); F41.1 Generalized anxiety disorder; E78.5 Hyperlipidemia, unspecified; R53.83 Other fatigue; R42 Dizziness and giddiness; M79.1 Myalgia
CPT/HCPCS: 36415; 80053; 85025; 86618; 86666; 86668; 86757

== ENCOUNTER → 2018-03-01 | Outpatient (CLI) | payer BC, OTHER ==
[2018-03-01 07:55] LABS: HEMOGLOBIN 13.7 G/DL (13.3-17.7); MEAN PLATELET VOLUME 9.7 FL (7.4-10.4); RED BLOOD COUNT 4.31 10^6/uL (4.35-5.85); RED CELL DISTRIBUTION WIDTH 12.6 % (10.0-14.5); WHITE BLOOD COUNT 5.7 10^3/uL (4.3-11.0)
== END ==
LOC: LAB 07:42
PROVIDERS: ATTEND Family Medicine
DX: R53.83 Other fatigue (principal)
CPT/HCPCS: 36415; 84403; 85027

== ENCOUNTER 2018-03-05 23:08 | Emergency (ER) | payer BC, OTHER ==
[~2018-03-05] VITALS: Ht 182.9 cm; Wt 81.6 kg
[~2018-03-05 23:08] MED LIST changes: -CIPR500T4; -DILT120C82; -ESCI5TAB12; -LOSA1TAB23
[2018-03-05 23:32] LABS: BASOPHILS % (AUTO) 0 % (0-10); EOSINOPHILS # (AUTO) 0.2 10^3/uL (0.0-0.3); EOSINOPHILS % (AUTO) 3 % (0-10); HEMATOCRIT 35 % (40-54); HEMOGLOBIN 13.5 G/DL (13.3-17.7); LYMPHOCYTES # (AUTO) 1.6 X 10^3 (1.0-4.0); LYMPHOCYTES % (AUTO) 23 % (12-44); MEAN CORPUSCULAR HEMOGLOBIN 32 PG (25-34); MEAN CORPUSCULAR HGB CONC 39 G/DL (32-36); MEAN CORPUSCULAR VOLUME 82 FL (80-99); MEAN PLATELET VOLUME 9.8 FL (7.4-10.4); MONOCYTES # (AUTO) 0.7 X 10^3 (0.0-1.0); MONOCYTES % (AUTO) 10 % (0-12); NEUTROPHILS # (AUTO) 4.4 X 10^3 (1.8-7.8); NEUTROPHILS % (AUTO) 64 % (42-75); PLATELET COUNT 255 10^3/uL (130-400); RED BLOOD COUNT 4.22 10^6/uL (4.35-5.85); RED CELL DISTRIBUTION WIDTH 12.5 % (10.0-14.5); WHITE BLOOD COUNT 6.9 10^3/uL (4.3-11.0)
[2018-03-05 23:49] LABS: ALANINE AMINOTRANSFERASE 12 U/L (0-55); ALBUMIN 4.3 GM/DL (3.2-4.5); ALKALINE PHOSPHATASE 60 U/L (40-136); BUN/CREATININE RATIO 11; CALCIUM 9.6 MG/DL (8.5-10.1); CARBON DIOXIDE 24 MMOL/L (21-32); CHLORIDE 91 MMOL/L (98-107); GFR ESTIMATED > 60; GLUCOSE 157 MG/DL (70-105); MAGNESIUM 1.4 MG/DL (1.8-2.4); POTASSIUM 3.6 MMOL/L (3.6-5.0); TOTAL PROTEIN 6.6 GM/DL (6.4-8.2)
[2018-03-06 00:01] LABS: SODIUM 125 MMOL/L (135-145)
--- NOTE | 2018-03-06 00:02 | ED Cardiac General ---
History of Present Illness General Chief Complaint: Cardiac/General Problems Stated Complaint: HEART NOT CONSISTANT W/ BEATING,NAUSEA Nursing Triage Note: PATIENT AMBULATORY TO ER WITH COMPLAINT OF FEELING LIKE HIS HEART IS BEATING TOO HARD AT TIMES. PATIENT STATES THIS HAS HAPPENED IN THE PAST AND HAS SEEN DR. JENNINGS FOR THIS AND WAS TOLD THE HEART MONITOR SHOWED "FLUTTER". PATIENT ALSO COMPLAINS OF INTERMITTENT NAUSEA. PATIENT STATES HE WAS DIAGNOSED WITH TULAREMIA 1 MONTH AGO AND COMPLETED DOXYCYLINE AND IS NOW ON CIPRO. Source: patient, old records Exam Limitations: no limitations History of Present Illness Date Seen by Provider: Mar 05, 2018 Time Seen by Provider: 23:12 Initial Comments This 62-year-old gentleman presents to the emergency room with complaints of palpitations this evening. He also had an episode of nausea that has resolved. Patient is currently being treated for tularemia. He completed a round of doxycycline and is now on Cipro. He denies any chest pain or shortness of breath. Review of chart notes a stress test in January of this year which was negative for ischemia. He also had a Holter monitor on February 14 which demonstrated a brief episode of SVT and rare PACs and PVCs. He is hypertensive. Allergies and Home Medications Allergies Coded Allergies: dexamethasone (Verified Allergy, Unknown, HTN, POSSIBLE SEROTONIN SYNDROME , 10/18/17) meperidine (Unverified Adverse Reaction, Unknown, 10/31/14) Home Medications Lorazepam 0.5 Mg Tablet, 0.5 MG PO TID PRN for ANXIETY Prescribed by: GABRIELA BLAIR on 12/23/17 0932 [place] 3 Polyunsat Fatty Acids 1,000 Mg Cap, 1,000 MG PO DAILY, (Reported) Ondansetron 4 Mg Tab.rapdis, 4 MG PO Q4H Prescribed by: GABRIELA BLAIR on 12/23/17 0932 Tramadol HCl 50 Mg Tablet, 50 MG PO BID Prescribed by: BUCK MAN on 02/09/15 1240 Patient Home Medication List Home Medication List Reviewed: Yes Review of Systems Review of Systems Constitutional: no symptoms reported EENTM: No Symptoms Reported Respiratory: No Symptoms Reported Cardiovascular: See HPI Gastrointestinal: No Symptoms Reported Genitourinary: No Symptoms Reported Musculoskeletal: no symptoms reported Skin: no symptoms reported Psychiatric/Neurological: No Symptoms Reported Endocrine: No Symptoms Reported Hematologic/Lymphatic: No Symptoms Reported Past Hpvnodb-Jratwh-Hodphd Hx Past Med/Social Hx: Reviewed and Corrections made Patient Social History Alcohol Use: Occasionally Uses Number of Drinks Today: AA Alcohol Beverage of Choice: Beer Recreational Drug Use: No Smoking Status: Former Smoker Type Used: Cigarettes Former Smoker, Quit: October 10, 2006 2nd Hand Smoke Exposure: No Recent Foreign Travel: No Contact w/Someone Who Travel: No Recent Infectious Disease Expo: No Recent Hopitalizations: No Physical Abuse: No Sexual Abuse: No Mistreated: No Fear: No Seasonal Allergies Seasonal Allergies: No Past Medical History Surgeries: Yes Abdominal, Appendectomy, Gallbladder, Orthopedic Respiratory: No Cardiac: Yes Hypertension, Irregular Heartbeat, Palpitations Neurological: No Reproductive Disorders: No HIV/AIDS: No Genitourinary: No Gastrointestinal: Yes (TAKES PRILOSEC) Gastroesophageal Reflux, Diverticulosis Musculoskeletal: Yes (BACK SURGERY; L1 COMPRESSION FX WITH KYPHOPLASTY 01/2015 , ) Chronic Back Pain Endocrine: No HEENT: No Loss of Vision: Bilateral Hearing Impairment: Denies Cancer: No Psychosocial: Yes Anxiety Integumentary: No Blood Disorders: Yes (tularemia) Adverse Reaction/Blood Tranf: No Family Medical History No Pertinent Family Hx Physical Exam Vital Signs Vital Signs - First Documented 03/05/18 03/06/18 23:10 01:14 Temp 97.0 Pulse 66 Resp 16 B/P (MAP) 173/92 (119) Pulse Ox 98 O2 Delivery Room Air Capillary Refill : Less Than 3 Seconds Height, Weight, BMI Height: 6'0" Weight: 180lbs. 0.0oz. 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 Norm as Tested, Other (slightly anxious) Skin: Normal Color, Warm/Dry Progress/Results/Core Measures Results/Orders Lab Results Laboratory Tests Test 03/05/18 23:18 Range/Units White Blood Count 6.9 4.3-11.0 10^3/uL Red Blood Count 4.22 L 4.35-5.85 10^6/uL Hemoglobin 13.5 13.3-17.7 G/DL Hematocrit 35 L 40-54 % Mean Corpuscular Volume 82 80-99 FL Mean Corpuscular Hemoglobin 32 25-34 PG Mean Corpuscular Hemoglobin Concent 39 H 32-36 G/DL Red Cell Distribution Width 12.5 10.0-14.5 % Platelet Count 255 130-400 10^3/uL Mean Platelet Volume 9.8 7.4-10.4 FL Neutrophils (%) (Auto) 64 42-75 % Lymphocytes (%) (Auto) 23 12-44 % Monocytes (%) (Auto) 10 0-12 % Eosinophils (%) (Auto) 3 0-10 % Basophils (%) (Auto) 0 0-10 % Neutrophils # (Auto) 4.4 1.8-7.8 X 10^3 Lymphocytes # (Auto) 1.6 1.0-4.0 X 10^3 Monocytes # (Auto) 0.7 0.0-1.0 X 10^3 Eosinophils # (Auto) 0.2 0.0-0.3 10^3/uL Basophils # (Auto) 0.0 0.0-0.1 10^3/uL Sodium Level 125 *L 135-145 MMOL/L Potassium Level 3.6 3.6-5.0 MMOL/L Chloride Level 91 L 98-107 MMOL/L Carbon Dioxide Level 24 21-32 MMOL/L Anion Gap 10 5-14 MMOL/L Blood Urea Nitrogen 10 7-18 MG/DL Creatinine 0.90 0.60-1.30 MG/DL Estimat Glomerular Filtration Rate > 60 BUN/Creatinine Ratio 11 Glucose Level 157 H 70-105 MG/DL Calcium Level 9.6 8.5-10.1 MG/DL Corrected Calcium 9.4 8.5-10.1 MG/DL Magnesium Level 1.4 L 1.8-2.4 MG/DL Total Bilirubin 1.0 0.1-1.0 MG/DL Aspartate Amino Transf (AST/SGOT) 15 5-34 U/L Alanine Aminotransferase (ALT/SGPT) 12 0-55 U/L Alkaline Phosphatase 60 40-136 U/L Troponin I < 0.30 <0.30 NG/ML Total Protein 6.6 6.4-8.2 GM/DL Albumin 4.3 3.2-4.5 GM/DL My Orders Orders - HBAKTI PANIAGUA MD Cbc With Automated Diff (03/05/18 23:18) Comprehensive Metabolic Panel (03/05/18 23:18) Magnesium (03/05/18 23:18) Troponin I (03/05/18 23:18) Saline Lock/Iv-Start (03/05/18 23:18) Ekg Tracing (03/05/18:18) Monitor-Rhythm Ecg Trace Only (03/05/18 23:18) Ns Iv 1000 Ml (Sodium Chloride 0.9%) (03/06/18 00:03) Magnesium 1 Gm/100 Ml Ivpb (Magnesium [place] (03/06/18 00:15) Medications Given in ED Current Medications Medications Dose Ordered Sig/Ankita Route Start Time Stop Time Status Last Admin Dose Admin Magnesium Sulfate/ Dextrose 100 ml @ 100 mls/hr ONCE ONCE IV 03/06/18 00:15 03/06/18 01:14 DC 03/06/18 00:10 100 MLS/HR Sodium Chloride 1,000 ml @ 0 mls/hr Q0M ONCE IV 03/06/18 00:03 03/06/18 00:04 DC 03/06/18 00:09 1,000 MLS/HR Vital Signs/I&O 03/05/18 03/06/18 23:10 01:14 Temp 97.0 96.1 Pulse 66 51 Resp 16 B/P (MAP) 173/92 (119) 145/81 Pulse Ox 98 O2 Delivery Room Air Room Air Blood Pressure Mean: 119 Progress Progress Note : Time: 00:12 Progress Note Cardiac rhythm has been unremarkable. Patient is feeling relatively well. He was found to be hyponatremic and hypomagnesemic. A liter of IV normal saline along with 1 g of magnesium have been ordered. Patient presently is taking hydrochlorothiazide. He was advised to discuss changing this medication to something else with Dr. Lozano later today. Diuretic use may be causing wasting of electrolytes. Initial ECG Impression Date: Mar 05, 2018 Initial ECG Impression Time: 23:14 Initial ECG Rate: 61 Initial ECG Rhythm: Normal Sinus Initial ECG Intervals: Normal Initial ECG Impression: Normal Comment Normal sinus rhythm with no ST elevation or depression. No abnormal intervals or axis deviation. Departure Impression Primary Impression: Palpitations Additional Impressions: Hyponatremia Hypomagnesemia Disposition: 01 HOME, SELF-CARE Condition: Improved Departure-Patient Inst. Decision time for Depature: 00:13 Referrals: BRITTNY LOZANO MD (PCP/Family) Primary Care Physician Patient Instructions: Hyponatremia, Palpitations (DC) Add. Discharge Instructions: Discuss your medications with Dr. Lozano as soon as possible, especially hydrochlorothiazide (HCTZ). Return to care if symptoms are worsening. Lightly salting your food may help with the hyponatremia (low-sodium). All discharge instructions reviewed with patient and/or family. Voiced understanding. Copy Copies To 1: BRITTNY LOZANO MD Copies To 2: MIQUEL MILES MD FACP FACC [facility] BHAKTI PANIAGUA MD Mar 06, 2018 00:02
[2018-03-06] MEDS ORDERED: NS IV 1000 ML 1,000 ML IV ONE (00:03)
[2018-03-06] MEDS ORDERED: MAGNESIUM 1 GM/100 ML IVPB 100 ML IV ONE (00:15)
[2018-03-06] MEDS ORDERED: DILT120C82 (00:44)
[2018-03-06] MEDS ORDERED: LOSA1TAB23 (00:44)
[2018-03-06] MEDS ORDERED: CIPR500T4 (00:44)
[2018-03-06] MEDS ORDERED: ESCI5TAB12 (00:44)
[2018-03-06 01:14] VITALS: BP 145/81
== END 2018-03-06 01:15 | disposition home or self-care (01) ==
LOC: EDUNIT# 23:08 → ER 23:10
DX: R00.2 Palpitations (principal); E87.1 Hypo-osmolality and hyponatremia; E83.42 Hypomagnesemia; I10 Essential (primary) hypertension; F41.9 Anxiety disorder, unspecified; K21.9 Gastro-esophageal reflux disease without esophagitis; Z90.89 Acquired absence of other organs; Z87.891 Personal history of nicotine dependence; Z88.8 Allergy status to other drugs, medicaments and biological substances; Z87.19 Personal history of other diseases of the digestive system
CPT/HCPCS: 36415; 80053; 83735; 84484; 85025; 93005; 96361; 96365

== ENCOUNTER 2018-03-06 18:14 | Emergency (ER) | payer BC ==
[~2018-03-06] VITALS: Ht 182.9 cm; Wt 83.9 kg
[~2018-03-06 18:14] MED LIST changes: +CIPR500T4; +DILT120C82; +ESCI5TAB12; +LOSA1TAB23
--- OUTSIDE RECORDS SUMMARY | 2018-03-06 18:30 | XMS REPORT | Continuity of Care Document ---
Author Author [facility] Organization [facility] Address Unknown Phone Unavailable Allergies Active Description Code Type Severity Reaction Onset Reported/Identified Relationship to Patient Clinical Status Yes SHRAVAN INHIBITORS UNKNOWN RESPIRATORY - COUGHI Yes DEMEROL UNKNOWN OTHER Yes DEXTROMETHORPHAN HBR SEVERE OTHER Yes GABAPENTIN UNKNOWN DIZZINESS Yes GABAPENTIN MODERATE OTHER Yes NKANo Known Allergies NKA Miscellaneous Allergy Unknown N/A 12/10/2005 Yes meperidine [id number] Drug Allergy Unknown N/A 10/31/2014 Yes dexamethasone [id number] Drug Allergy Unknown HTN, POSSIBLE S 10/18/2017 [...] MARY Weinstein Ot E888.9 12/03/2014 MELCHOR ALDANA GEAR HOBBER Ot 557.1 12/03/2014 MELCHOR ALDANA GEAR HOBBER Ot 562.10 12/03/2014 MELCHOR ALDANA GEAR HOBBER Ot 787.3 12/03/2014 MELCHOR ALDANA GEAR HOBBER Ot 787.91 12/03/2014 MELCHOR ALDANA GEAR HOBBER Ot 789.00 12/16/2014 Ot 401.9 12/16/2014 Ot 401.9 12/16/2014 Ot 789.00 12/16/2014 KEISHA ARANDA, MARY Weinstein Ot 401.9 12/16/2014 KEISHA ARANDA, MARY Weinstein Ot 805.4 12/16/2014 KEISHA ARANDA, MARY Weinstein Ot E000.8 12/16/2014 KEISHA ARANDA, MARY Weinstein Ot E888.9 12/16/2014 MELCHOR ALDANA GEAR HOBBER Ot 557.1 12/16/2014 MELCHOR ALDANA GEAR HOBBER Ot 562.10 12/16/2014 MELCHOR ALDANA GEAR HOBBER Ot 787.3 12/16/2014 MELCHOR ALDANA GEAR HOBBER Ot 787.91 12/16/2014 MELCHOR ALDANA GEAR HOBBER Ot 789.00 12/16/2014 KEISHA ARANDA, MARY Weinstein Ot 805.4 12/16/2014 KEISHA ARANDA, MARY Weinstein Ot E000.8 12/16/2014 KEISHA ARANDA, MARY Weinstein Ot E888.9 12/16/2014 KEISHA ARANDA, MARY Weinstein Ot 805.4 12/16/2014 KEISHA ARANDA, MARY Weinstein Ot E000.8 12/16/2014 MARY VALDES MD Ot E888.9 12/16/2014 MELCHOR ALDANA GEAR HOBBER Ot 557.1 12/16/2014 ALDANAMELCHOR J GEAR HOBBER Ot 562.10 12/16/2014 ALDANAMELCHOR J GEAR HOBBER Ot 787.3 12/16/2014 ALDANAHORTENCIALY J GEAR HOBBER Ot 787.91 12/16/2014 ALDANAMELCHOR J GEAR HOBBER Ot 789.00 02/05/2015 Ot 401.9 02/05/2015 Ot 401.9 02/05/2015 Ot 789.00 02/05/2015 KEISHA ARANDA, MARY Weinstein Ot 401.9 02/05/2015 KEISHA ARANDA, MARY Weinstein Ot 805.4 02/05/2015 KEISHA ARANDA, MARY Weinstein Ot E000.8 02/05/2015 KEISHA ARANDA, MARY Weinstein Ot E888.9 02/05/2015 ALDANAMELCHOR GEAR HOBBER Ot 557.1 02/05/2015 ALDANAMELCHOR GEAR HOBBER Ot 562.10 02/05/2015 ALDANAMELCHOR GEAR HOBBER Ot 787.3 02/05/2015 ALDANAMELCHOR J GEAR HOBBER Ot 787.91 02/05/2015 ALDANAMELCHOR J GEAR HOBBER Ot 789.00 02/05/2015 Ot 733.13 02/05/2015 APPLE ARANDA, IJEOMA Dickerson Ot 733.13 02/05/2015 APPLE ARANDA, IJEOMA Dickerson Ot V72.63 02/05/2015 IJEOMA CHIU MD Ot V74.8 02/05/2015 ALDANAMELCHOR GEAR HOBBER Ot 557.1 02/05/2015 ALDANAMELCHOR J GEAR HOBBER Ot 562.10 02/05/2015 ALDANAMELCHOR J GEAR HOBBER Ot 787.3 02/05/2015 ALDANAMELCHOR J GEAR HOBBER Ot 787.91 02/05/2015 ALDANAHORTENCIALY J GEAR HOBBER Ot 789.00 02/05/2015 KEISHA ARANDA, MARY Weinstein Ot 805.4 02/05/2015 KEISHA ARANDA, MARY Weinstein Ot E000.8 02/05/2015 KEISHA ARANDA, MARY Weinstein Ot E888.9 02/09/2015 KEISHA ARANDA, MARY Weinstein Ot 805.4 02/09/2015 KEISHA ARANDA, MARY Weinstein Ot E000.8 02/09/2015 KEISHA ARANDA, MARY Weinstein Ot E888.9 02/09/2015 MELCHOR ALDANA GEAR HOBBER Ot 557.1 02/09/2015 MELCHOR ALDANA GEAR HOBBER Ot 562.10 02/09/2015 ALDANAMELCHOR GEAR HOBBER Ot 787.3 02/09/2015 MELCHOR ALDANA GEAR HOBBER Ot 787.91 02/09/2015 MELCHOR ALDANA GEAR HOBBER Ot 789.00 02/09/2015 IJEOMA CHIU MD Ot 733.00 OSTEOPOROSIS NOS 02/09/2015 IJEOMA CHIU MD Ot 733.13 PATHOLOGIC FRACTURE, VERTEBRAE 02/09/2015 IJEOMA CHUI MD Ot M81.0 AGE-RELATED OSTEOPOROSIS W/O CURRENT [...] MD Ot E888.9 03/03/2015 MELCHOR ALDANA Tuan GEAR HOBBER Ot 557.1 03/03/2015 MELCHOR ADLANA Tuan GEAR HOBBER Ot 562.10 03/03/2015 MELCHOR ALDANA Tuan GEAR HOBBER Ot 787.3 03/03/2015 MELCHOR ALDANA GEAR HOBBER Ot 787.91 03/03/2015 MELCHOR ALDANA GEAR HOBBER Ot 789.00 03/03/2015 Ot 733.13 03/03/2015 IJEOMA [...] KEISHA ARANDA, MARY Weinstein Ot 562.10 03/10/2015 KEISHA ARANDA, MARY Weinstein Ot 780.60 03/13/2015 KEISHA ARANDA, MARY Weinstein Ot 562.10 03/13/2015 KEISHA ARANDA, MARY Weinstein Ot 780.60 03/16/2015 Ot 401.9 03/16/2015 Ot 401.9 03/16/2015 Ot 789.00 03/16/2015 KEISHA ARANDA, MARY Weinstein Ot 401.9 03/16/2015 KEISHA ARANDA, MARY Weinstein Ot 805.4 03/16/2015 KEISHA ARANDA, MARY L Ot E000.8 03/16/2015 KEISHA ARANDA, MARY Js Ot E888.9 03/16/2015 ALDANA, MELCHOR Dickerson GEAR HOBBER Ot 557.1 03/16/2015 ALDANA, MELCHOR Dickerson GEAR HOBBER Ot 562.10 03/16/2015 ALDANA, MELCHOR J GEAR HOBBER Ot 787.3 03/16/2015 ALDANA, MELCHOR J GEAR HOBBER Ot 787.91 03/16/2015 ALDANA, MELCHOR J GEAR HOBBER Ot 789.00 03/16/2015 Ot 733.13 03/16/2015 IJEOMA CHIU MD Ot 733.13 03/16/2015 IJEOMA CHIU MD Ot V72.63 03/16/2015 IJEOMA CHIU MD Ot V74.8 03/16/2015 IJEOMA CHIU MD Ot Z01.812 04/13/2015 KEISHA ARANDA, MARY Weinstein Ot 562.10 04/13/2015 KEISHA ARANDA, MARY Weinstein Ot 780.60 04/28/2015 MARY VALDES MD Ot 562.10 04/28/2015 MARY VALDES MD Ot 780.60 09/08/2015 KEISHA ARANDA, MARY Weinstein Ot 805.4 09/08/2015 KEISHA ARANDA, MARY Weinstein Ot E000.8 09/08/2015 MARY VALDES MD Ot E888.9 09/08/2015 MELCHOR ALDANA GEAR HOBBER Ot 557.1 09/08/2015 ALDANAMELCHOR GEAR HOBBER Ot 562.10 09/08/2015 ALDANAMELCHOR GEAR HOBBER Ot 787.3 09/08/2015 ALDANAHORTENCIALY J GEAR HOBBER Ot 787.91 09/08/2015 ALDANAMELCHOR GEAR HOBBER Ot 789.00 09/08/2015 Ot 733.13 09/08/2015 IJEOMA CHIU MD Ot 733.13 09/08/2015 IJEOMA CHIU MD Ot V72.63 09/08/2015 IJEOMA CHIU MD Ot V74.8 09/08/2015 IJEOMA CHIU MD Ot Z01.812 09/08/2015 MARY VALDES MD Ot 562.10 09/08/2015 MARY VALDES MD Ot 780.60 09/08/2015 KEISHA ARANDA, MARY Weinstein Ot 805.4 09/08/2015 MARY VALDES MD Ot E000.8 09/08/2015 MARY VALDES MD Ot E888.9 09/08/2015 MELCHOR ALDANA GEAR HOBBER Ot 557.1 09/08/2015 ALDANAMELCHOR GEAR HOBBER Ot 562.10 09/08/2015 ALDANAMELCHOR GEAR HOBBER Ot 787.3 09/08/2015 ALDANAMELCHOR GEAR HOBBER Ot 787.91 09/08/2015 ALDANAMELCHOR GEAR HOBBER Ot 789.00 09/08/2015 Ot 733.13 09/08/2015 IJEOMA [...] INTERVERTEBRAL DISC DISPLACEMENT, 10/28/2015 MARY VALDES MD L Ot M12.9 ARTHROPATHY, UNSPECIFIED 10/28/2015 MARY VALDES MD Ot M48.06 SPINAL STENOSIS, LUMBAR REGION 10/28/2015 MARY VALDES MD Ot 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, 11/02/2015 MARY VALDES MD Ot 805.4 FX LUMBAR VERTEBRA-CLOSE 11/02/2015 MARY VALDES MD L Ot E000.8 OTHER EXTERNAL CAUSE STATUS 11/02/2015 MARY VALDES MD Ot E888.9 FALL NOS 11/02/2015 MELCHOR ALDANA GEAR HOBBER Ot 557.1 CHR VASC INSUFF INTEST 11/02/2015 MELCHOR ALDANA GEAR HOBBER Ot 562.10 DIVERTICULOSIS COLON (W/O MENT OF HEMORR 11/02/2015 MELCHOR ALDANA GEAR HOBBER Ot 787.3 FLATUL/ERUCTAT/GAS PAIN 11/02/2015 MELCHOR ALDANA GEAR HOBBER Ot 787.91 DIARRHEA 11/02/2015 MELCHOR ALDANA GEAR HOBBER Ot 789.00 ABDOMINAL PAIN, UNSPECIFIED SITE 11/02/2015 [...] Ot E888.9 FALL NOS 11/02/2015 MELCHOR ALDANA GEAR HOBBER Ot 557.1 CHR VASC INSUFF INTEST 11/02/2015 MELCHOR ALDANA GEAR HOBBER Ot 562.10 DIVERTICULOSIS COLON (W/O MENT OF HEMORR 11/02/2015 MELCHOR ALDANA GEAR HOBBER Ot 787.3 FLATUL/ERUCTAT/GAS PAIN 11/02/2015 MELCHOR ALDANA GEAR HOBBER Ot 787.91 DIARRHEA 11/02/2015 MELCHOR ALDANA GEAR HOBBER Ot 789.00 ABDOMINAL PAIN, UNSPECIFIED SITE 11/02/2015 [...] Ot E888.9 FALL NOS 11/25/2015 MELCHOR ALDANA GEAR HOBBER Ot 557.1 CHR VASC INSUFF INTEST 11/25/2015 MELCHOR ALDANA GEAR HOBBER Ot 562.10 DIVERTICULOSIS COLON (W/O MENT OF HEMORR 11/25/2015 MELCHOR ALDANA GEAR HOBBER Ot 787.3 FLATUL/ERUCTAT/GAS PAIN 11/25/2015 MELCHOR ALDANA GEAR HOBBER Ot 787.91 DIARRHEA 11/25/2015 MELCHOR ALDANA GEAR HOBBER Ot 789.00 ABDOMINAL PAIN, UNSPECIFIED SITE 11/25/2015 [...] Ot E888.9 FALL NOS 12/31/2015 MELCHOR ALDANA GEAR HOBBER Ot 557.1 CHR VASC INSUFF INTEST 12/31/2015 MELCHOR ALDANA GEAR HOBBER Ot 562.10 DIVERTICULOSIS COLON (W/O MENT OF HEMORR 12/31/2015 MELCHOR ALDANA GEAR HOBBER Ot 787.3 FLATUL/ERUCTAT/GAS PAIN 12/31/2015 MELCHOR ALDANA GEAR HOBBER Ot 787.91 DIARRHEA 12/31/2015 MELCHOR ALDANA GEAR HOBBER Ot 789.00 ABDOMINAL PAIN, UNSPECIFIED SITE 12/31/2015 [...] INTERVERTEBRAL DISC DISORDERS W RADICULO 02/25/2016 BELEN BOELS MD Ot 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 RADICULO 04/01/2016 KEISHA ARANDA, MARY Weinstein Ot 805.4 FX LUMBAR VERTEBRA-CLOSE 04/01/2016 KEISHA ARANDA, MARY Weinstein Ot E000.8 OTHER EXTERNAL CAUSE STATUS 04/01/2016 KEISHA ARANDA, MARY Weinstein Ot E888.9 FALL NOS 04/01/2016 MELCHOR ALDANA GEAR HOBBER Ot 557.1 CHR VASC INSUFF INTEST 04/01/2016 MELCHOR ALDANA GEAR HOBBER Ot 562.10 DIVERTICULOSIS COLON (W/O MENT OF HEMORR 04/01/2016 MELCHOR ALDANA GEAR HOBBER Ot 787.3 FLATUL/ERUCTAT/GAS PAIN 04/01/2016 MELCHOR ALDANA GEAR HOBBER Ot 787.91 DIARRHEA 04/01/2016 MELCHOR ALDANA GEAR HOBBER Ot 789.00 ABDOMINAL PAIN, UNSPECIFIED SITE 04/01/2016 [...] Ot 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, 04/01/2016 ELVI ARANDA, BELEN Dickerson Ot 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 RADICULO 04/01/2016 EBLEN BOLES MD Ot 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 RADICULO 04/22/2016 BELEN BOLES MD Ot 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 RADICULO 09/06/2016 KEISHA ARANDA, MARY Weinstein Ot 805.4 FX LUMBAR VERTEBRA-CLOSE 09/06/2016 MARY VALDES MD Ot E000.8 OTHER EXTERNAL CAUSE STATUS 09/06/2016 KEISHA ARANDA, MARY Weinstein Ot E888.9 FALL NOS 09/06/2016 MELCHOR ALDANA GEAR HOBBER Ot 557.1 CHR VASC INSUFF INTEST 09/06/2016 MELCHOR ALDANA GEAR HOBBER Ot 562.10 DIVERTICULOSIS COLON (W/O MENT OF HEMORR 09/06/2016 MELCHOR ALDANA GEAR HOBBER Ot 787.3 FLATUL/ERUCTAT/GAS PAIN 09/06/2016 MELCHOR ALDANA GEAR HOBBER Ot 787.91 DIARRHEA 09/06/2016 MELCHOR ALDANA GEAR HOBBER Ot 789.00 ABDOMINAL PAIN, UNSPECIFIED SITE 09/06/2016 Ot 733.13 PATHOLOGIC FRACTURE, VERTEBRAE 09/06/2016 IJEOMA CHIU MD Ot 733.13 PATHOLOGIC FRACTURE, VERTEBRAE 09/06/2016 IJEOMA CHIU MD Ot V72.63 PRE-PROCEDURAL LABORATORY EXAMINATION 09/06/2016 IJEOMA CHIU MD Ot V74.8 SCREEN-BACTERIAL DIS NEC 09/06/2016 IJEOMA CHIU MD Ot Z01.812 ENCOUNTER FOR PREPROCEDURAL LABORATORY E 09/06/2016 MARY VALDES MD Ot 562.10 DIVERTICULOSIS COLON (W/O MENT OF HEMORR 09/06/2016 KEISHA ARANDA, MARY L Ot 780.60 FEVER, UNSPECIFIED 09/06/2016 KEISHA [...] VALDES W 401.0 MALIGNANT ESSENTIAL HYPERTENSION 06/13/2017 KEISHA, MARY W E78.5 HYPERLIPIDEMIA, UNSPECIFIED 06/13/2017 KEISHA, MARY [...] MARY Weinstein Ot 780.60 FEVER, UNSPECIFIED 08/07/2017 MARY VALDES MD Ot M12.9 ARTHROPATHY, UNSPECIFIED 08/07/2017 MARY AVLDES MD Ot M48.06 SPINAL STENOSIS, LUMBAR REGION [...] Ot 787.3 FLATUL/ERUCTAT/GAS PAIN 08/18/2017 MELCHOR ALDANA Ot 787.91 DIARRHEA 08/18/2017 MELCHOR ALDANA Ot [...] Ot 787.3 FLATUL/ERUCTAT/GAS PAIN 08/21/2017 MELCHOR ALDANA GEAR HOBBER Ot 787.91 DIARRHEA 08/21/2017 MELCHOR ALDANA GEAR HOBBER Ot 789.00 ABDOMINAL PAIN, UNSPECIFIED SITE 08/21/2017 Ot 733.13 PATHOLOGIC FRACTURE, VERTEBRAE 08/21/2017 IJEOMA CHIU MD Ot 733.13 PATHOLOGIC FRACTURE, VERTEBRAE 08/21/2017 IJEOMA CHIU MD Ot V72.63 PRE-PROCEDURAL LABORATORY EXAMINATION 08/21/2017 IJEOMA CHIU MD Ot V74.8 SCREEN-BACTERIAL DIS NEC 08/21/2017 IJEOMA CHIU MD Ot Z01.812 ENCOUNTER FOR PREPROCEDURAL LABORATORY E 08/21/2017 MARY VALDES MD Ot 562.10 DIVERTICULOSIS COLON [...] Ot E888.9 FALL NOS 08/23/2017 HORTENCIA ALDANADOMINGO TYSONP Ot 557.1 CHR VASC INSUFF INTEST 08/23/2017 MELCHOR ALDANAP Ot 562.10 DIVERTICULOSIS COLON (W/O MENT OF HEMORR 08/23/2017 ALDANAMARILUMELCHOR J GEAR HOBBER Ot 787.3 FLATUL/ERUCTAT/GAS PAIN 08/23/2017 MELCHOR ALDANA GEAR HOBBER Ot 787.91 DIARRHEA 08/23/2017 MARILU ALDANAFRANCISCO JAVIER TYSONP Ot 789.00 ABDOMINAL PAIN, UNSPECIFIED SITE 08/23/2017 [...] VALDES E87.1 HYPO-OSMOLALITY AND HYPONATREMIA 10/26/2017 MARY VALDSE I10 ESSENTIAL (PRIMARY) HYPERTENSION 10/26/2017 MARY VALDES 276.1 HYPOSMOLALITY AND/OR HYPONATREMIA 10/26/2017 MARY VALDES 401.0 MALIGNANT ESSENTIAL HYPERTENSION 10/26/2017 MARY VALDES E87.1 HYPO-OSMOLALITY AND HYPONATREMIA 10/26/2017 MARY VALDES A I10 ESSENTIAL (PRIMARY) HYPERTENSION 2017 MAGNO FOLEY APRN Ot I10 ESSENTIAL (PRIMARY) HYPERTENSION 2017 MAGNO FOLEY APRN Ot K21.9 GASTRO-ESOPHAGEAL REFLUX DISEASE WITHOUT 2017 MAGNO FOLEY APRN Ot Z87.19 PERSONAL HISTORY OF OTHER DISEASES OF 2017 MAGNO FOLEY APRN Ot Z87.891 PERSONAL HISTORY OF NICOTINE DEPENDENCE 2017 MAGNO FOLEY APRN Ot Z88.5 ALLERGY STATUS TO NARCOTIC AGENT STATUS 2017 MAGNO FOLEY APRN Ot Z88.8 ALLERGY STATUS TO OTH DRUG/MEDS/BIOL SUB 2017 MAGNO FOLEY APRN Ot 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 OF OTHER ORGANS 12/23/2017 JOHNNIE DO, GABRIELA K Ot F41.9 ANXIETY DISORDER, UNSPECIFIED 12/23/2017 JOHNNIE DO, GABRIELA K Ot I10 ESSENTIAL (PRIMARY) HYPERTENSION 12/23/2017 JOHNNIE DO, GABRIELA K Ot K21.9 GASTRO-ESOPHAGEAL REFLUX DISEASE WITHOUT 12/23/2017 JOHNNIE DO, GABRIELA K Ot Z87.891 PERSONAL HISTORY OF NICOTINE DEPENDENCE 12/23/2017 JOHNNIE DO, GABRIELA K Ot Z88.5 ALLERGY STATUS TO NARCOTIC AGENT STATUS 12/23/2017 JOHNNIE DO, GABRIELA K Ot Z88.8 ALLERGY STATUS TO OTH DRUG/MEDS/BIOL SUB 12/23/2017 JOHNNIE DO, GABRIELA K Ot Z90.49 ACQUIRED ABSENCE OF OTHER SPECIFIED PART 01/03/2018 RYAN VAUGHAN SILK BRUSHER Ot I10 ESSENTIAL (PRIMARY) HYPERTENSION 01/03/2018 RYAN VAUGHAN SILK BRUSHER Ot R61 GENERALIZED HYPERHIDROSIS 01/06/2018 MAGNO FOLEY APRN Ot I10 ESSENTIAL (PRIMARY) HYPERTENSION 01/06/2018 MAGNO FOLEY APRN Ot K21.9 GASTRO-ESOPHAGEAL REFLUX DISEASE WITHOUT 01/06/2018 MAGNO FOLEY APRN Ot Z87.19 PERSONAL HISTORY OF OTHER DISEASES OF 01/06/2018 MAGNO FOLEY APRN Ot Z88.8 ALLERGY STATUS TO OTH DRUG/MEDS/BIOL SUB 01/06/2018 MAGNO FOLEY APRN Ot 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 OF OTHER ORGANS 01/08/2018 MAGNO FOLEY SILK BRUSHER Ot I10 ESSENTIAL (PRIMARY) HYPERTENSION 01/08/2018 MAGNO FOLEY APRN Ot K21.9 GASTRO-ESOPHAGEAL REFLUX DISEASE WITHOUT 01/08/2018 MAGNO FOLEY APRN Ot Z87.19 PERSONAL HISTORY OF OTHER DISEASES OF TH 01/08/2018 MAGNO FOLEY APRN Ot Z88.8 ALLERGY STATUS TO OTH DRUG/MEDS/BIOL SUB 01/08/2018 MAGNO FOLEY SILK BRUSHER Ot 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 OF OTHER ORGANS 01/17/2018 Ot E83.42 HYPOMAGNESEMIA 01/17/2018 Ot F41.9 ANXIETY DISORDER, UNSPECIFIED 01/17/2018 Ot I10 ESSENTIAL ( PRIMARY) HYPERTENSION 01/17/2018 Ot K21.9 GASTRO- ESOPHAGEAL REFLUX DISEASE WITHOUT 01/17/2018 Ot R03.0 ELEVATED BLOOD-PRESSURE READING, W/O ARINA 01/17/2018 Ot Z87.19 PERSONAL HISTORY OF OTHER DISEASES OF 01/17/2018 Ot Z87.891 PERSONAL HISTORY OF NICOTINE DEPENDENCE 01/17/2018 Ot Z88.8 ALLERGY STATUS TO OTH DRUG/MEDS/BIOL SUB 01/17/2018 Ot 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 OF OTHER ORGANS 01/17/2018 Koffi Workman 300.00 ANXIETY STATE, UNSPECIFIED 01/17/2018 Koffi Workman 401.0 MALIGNANT ESSENTIAL HYPERTENSION 01/17/2018 Koffi Workman F41.9 ANXIETY DISORDER, UNSPECIFIED 01/17/2018 Koffi Workman I10 ESSENTIAL (PRIMARY) HYPERTENSION 02/06/2018 NELI MCBRIDE GEAR HOBBER Ot I10 ESSENTIAL (PRIMARY) HYPERTENSION 02/07/2018 KEISHA ARANDA, MARY Weinstein Ot 805.4 FX LUMBAR VERTEBRA-CLOSE 02/07/2018 KEISHA ARANDA, MARY Weinstein Ot E000.8 OTHER EXTERNAL CAUSE STATUS 02/07/2018 KEISHA ARANDA, MARY Weinstein Ot E888.9 FALL NOS 02/07/2018 MELCHOR ALDANA GEAR HOBBER Ot 557.1 CHR VASC INSUFF INTEST 02/07/2018 MELCHOR ALDANA GEAR HOBBER Ot 562.10 DIVERTICULOSIS COLON (W/O MENT OF HEMORR 02/07/2018 MELCHOR ALDANA GEAR HOBBER Ot 787.3 FLATUL/ERUCTAT/GAS PAIN 02/07/2018 MELCHOR LADANA Tuan GEAR HOBBER Ot 787.91 DIARRHEA 02/07/2018 MELCHOR ALDANA GEAR HOBBER Ot 789.00 ABDOMINAL PAIN, UNSPECIFIED SITE 02/07/2018 Ot 733.13 PATHOLOGIC FRACTURE, VERTEBRAE 02/07/2018 IJEOMA CHIU MD Ot 733.13 PATHOLOGIC FRACTURE, VERTEBRAE 02/07/2018 IJEOMA CHIU MD Ot V72.63 PRE-PROCEDURAL LABORATORY EXAMINATION 02/07/2018 IJEOMA CHIU MD Ot V74.8 SCREEN-BACTERIAL DIS NEC 02/07/2018 IJEOMA CHIU MD Ot Z01.812 ENCOUNTER FOR PREPROCEDURAL LABORATORY E 02/07/2018 MARY VALDES MD Ot 562.10 DIVERTICULOSIS COLON (W/O MENT OF HEMORR 02/07/2018 MARY VALDES MD Ot 780.60 FEVER, UNSPECIFIED 02/07/2018 MARY VALDES MD Ot M12.9 ARTHROPATHY, UNSPECIFIED 02/07/2018 MARY VALDES MD Ot M48.06 SPINAL STENOSIS, LUMBAR REGION 02/07/2018 AMRY VALDES MD Ot 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, 02/07/2018 BELEN BOLES MD Ot 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 RADICULO 02/07/2018 MARY VALDES MD Ot K57.30 DVRTCLOS OF LG INT W/O PERFORATION OR AB 02/07/2018 MARY VALDES MD Ot M54.12 RADICULOPATHY, CERVICAL REGION 02/07/2018 MARY VALDES MD Ot Z53.8 PROCEDURE AND TREATMENT NOT CARRIED OUT 02/07/2018 RYAN VAUGHAN SILK BRUSHER Ot I10 ESSENTIAL (PRIMARY) HYPERTENSION 02/07/2018 RYAN VAUGHAN SILK BRUSHER Ot R61 GENERALIZED HYPERHIDROSIS 02/07/2018 NELI MCBRIDE GEAR HOBBER Ot I10 ESSENTIAL (PRIMARY) HYPERTENSION 02/07/2018 MARY VALDES MD Ot 805.4 FX LUMBAR VERTEBRA-CLOSE 02/07/2018 MARY VALDES MD Ot E000.8 OTHER EXTERNAL CAUSE STATUS 02/07/2018 MARY VALDES MD Ot E888.9 FALL NOS 02/07/2018 MELCHOR ALDANA GEAR HOBBER Ot 557.1 CHR VASC INSUFF INTEST 02/07/2018 MELCHOR ALDANA GEAR HOBBER Ot 562.10 DIVERTICULOSIS COLON (W/O MENT OF HEMORR 02/07/2018 MELCHOR ALDANA GEAR HOBBER Ot 787.3 FLATUL/ERUCTAT/GAS PAIN 02/07/2018 MELCHOR ALDANA GEAR HOBBER Ot 787.91 DIARRHEA 02/07/2018 MELCHOR ALDANA GEAR HOBBER Ot 789.00 ABDOMINAL PAIN, UNSPECIFIED SITE 02/07/2018 Ot 733.13 PATHOLOGIC FRACTURE, VERTEBRAE 02/07/2018 IJEOMA CHIU MD Ot 733.13 PATHOLOGIC FRACTURE, VERTEBRAE 02/07/2018 IJEOMA CHIU MD Ot V72.63 PRE-PROCEDURAL LABORATORY EXAMINATION 02/07/2018 IJEOMA CHIU MD Ot V74.8 SCREEN-BACTERIAL DIS NEC 02/07/2018 IJEOMA CHIU MD Ot Z01.812 ENCOUNTER FOR PREPROCEDURAL LABORATORY E 02/07/2018 KEISHA ARANDA, MARY Weinstein Ot 562.10 DIVERTICULOSIS COLON (W/O MENT OF HEMORR 02/07/2018 MARY VALDES MD Ot 780.60 FEVER, UNSPECIFIED 02/07/2018 MARY VALDES MD Ot M12.9 ARTHROPATHY, UNSPECIFIED 02/07/2018 MARY VALDES MD Ot M48.06 SPINAL STENOSIS, LUMBAR REGION 02/07/2018 MARY VALDES MD Ot 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, 02/07/2018 BELEN BOLES MD Ot 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 RADICULO 02/07/2018 MARY VALDES MD Ot K57.30 DVRTCLOS OF LG INT W/O PERFORATION OR AB 02/07/2018 MARY VALDES MD Ot M54.12 RADICULOPATHY, CERVICAL REGION 02/07/2018 MARY VALDES MD Ot Z53.8 PROCEDURE AND TREATMENT NOT CARRIED OUT 02/07/2018 RYAN VAUGHAN SILK BRUSHER Ot I10 ESSENTIAL (PRIMARY) HYPERTENSION 02/07/2018 RYAN VAUGHAN SILK BRUSHER Ot R61 GENERALIZED HYPERHIDROSIS 02/07/2018 BAIMA, NELI L GEAR HOBBER Ot I10 ESSENTIAL (PRIMARY) HYPERTENSION 02/08/2018 GINGER ARANDA FACC, ALI FACP CCDS Ot I10 ESSENTIAL (PRIMARY) HYPERTENSION 02/08/2018 GINGER ARANDA FACC, ALI FACP CCDS Ot R00.2 PALPITATIONS 02/08/2018 GINGER ARANDA FACC, ALI FACP CCDS Ot R06.02 SHORTNESS OF BREATH 02/09/2018 GINGER ARANDA FACC, ALI FACP CCDS Ot I10 ESSENTIAL (PRIMARY) HYPERTENSION 02/09/2018 [facility], ALI FACP CCDS Ot R00.2 PALPITATIONS 02/09/2018 [facility], ALI FACP CCDS Ot R06.02 SHORTNESS OF BREATH 02/15/2018 FREDDIE, DONALD L SILK BRUSHER Ot E78.5 HYPERLIPIDEMIA, UNSPECIFIED 02/15/2018 FREDDIE, DONALD L SILK BRUSHER Ot F41.1 GENERALIZED ANXIETY DISORDER 02/15/2018 FREDDIE, DONALD L SILK BRUSHER Ot I10 ESSENTIAL (PRIMARY) HYPERTENSION 02/15/2018 FREDDIE, DONALD L SILK BRUSHER Ot M79.1 MYALGIA 02/15/2018 FREDDIE, DONALD L SILK BRUSHER Ot R42 DIZZINESS AND GIDDINESS 02/15/2018 FREDDIE, DONALD L SILK BRUSHER Ot R53.83 OTHER FATIGUE 02/21/2018 GINGER ARANDA [facility], ALI FACP CCDS Ot I10 ESSENTIAL (PRIMARY) HYPERTENSION 02/21/2018 GINGER ARANDA [facility], ALI FACP CCDS Ot R00.2 PALPITATIONS 02/21/2018 GINGER BARTH, ALI FACP CCDS Ot R06.02 SHORTNESS OF BREATH 02/21/2018 GINGER ARANDA [facility], ALI FACP CCDS Ot I10 ESSENTIAL (PRIMARY) HYPERTENSION 02/21/2018 GINGER ARANDA FACC, ALI FACP CCDS Ot R00.2 PALPITATIONS 02/21/2018 GINGER ARANDA FACC, ALI FACP CCDS Ot R06.02 SHORTNESS OF BREATH 02/21/2018 FREDDIE, DONALD L SILK BRUSHER Ot E78.5 HYPERLIPIDEMIA, UNSPECIFIED 02/21/2018 FREDDIE, DONALD L SILK BRUSHER Ot F41.1 GENERALIZED ANXIETY DISORDER 02/21/2018 FREDDIE, DONALD L SILK BRUSHER Ot I10 ESSENTIAL (PRIMARY) HYPERTENSION 02/21/2018 FREDDIE, DONALD L SILK BRUSHER Ot M79.1 MYALGIA 02/21/2018 FREDDIEDONALD CID SILK BRUSHER Ot R42 DIZZINESS AND GIDDINESS 02/21/2018 FREDDIEDONALD CID SILK BRUSHER Ot R53.83 OTHER FATIGUE 02/28/2018 KEISHA ARANDA, MARY Weinstein Ot 805.4 FX LUMBAR VERTEBRA-CLOSE 02/28/2018 KEISHA ARANDA, MARY Weinstein Ot E000.8 OTHER EXTERNAL CAUSE STATUS 02/28/2018 KEISHA ARANDA, MARY Weinstein Ot E888.9 FALL NOS 02/28/2018 MELCHOR ALDANA GEAR HOBBER Ot 557.1 CHR VASC INSUFF INTEST 02/28/2018 MELCHOR ALDANA GEAR HOBBER Ot 562.10 DIVERTICULOSIS COLON (W/O MENT OF HEMORR 02/28/2018 MELCHOR ALDANA GEAR HOBBER Ot 787.3 FLATUL/ERUCTAT/GAS PAIN 02/28/2018 MELCHOR ALDANA GEAR HOBBER Ot 787.91 DIARRHEA 02/28/2018 MELCHOR ALDANA GEAR HOBBER Ot 789.00 ABDOMINAL PAIN, UNSPECIFIED SITE 02/28/2018 Ot 733.13 PATHOLOGIC FRACTURE, VERTEBRAE 02/28/2018 APPLE ARANDA, IJEOMA Dickerson Ot 733.13 PATHOLOGIC FRACTURE, VERTEBRAE 02/28/2018 APPLE ARANDA, IJEOMA Dickerson Ot V72.63 PRE-PROCEDURAL LABORATORY EXAMINATION 02/28/2018 IJEOMA CHIU MD Ot V74.8 SCREEN-BACTERIAL DIS NEC 02/28/2018 IJEOMA CHIU MD Ot Z01.812 ENCOUNTER FOR PREPROCEDURAL LABORATORY E 02/28/2018 KEISHA ARANDA, MARY Weinstein Ot 562.10 DIVERTICULOSIS COLON (W/O MENT OF HEMORR 02/28/2018 MARY VALDES MD Ot 780.60 FEVER, UNSPECIFIED 02/28/2018 MARY VALDES MD Ot M12.9 ARTHROPATHY, UNSPECIFIED 02/28/2018 MARY VALDES MD Ot M48.06 SPINAL STENOSIS, LUMBAR REGION 02/28/2018 MARY VALDES MD Ot 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, 02/28/2018 BELEN BOLES MD Ot 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 RADICULO 02/28/2018 MARY VALDES MD Ot K57.30 DVRTCLOS OF LG INT W/O PERFORATION OR AB 02/28/2018 KEISHA ARANDA, MARY Weinstein Ot M54.12 RADICULOPATHY, CERVICAL REGION 02/28/2018 KEISHA ARANDA, MARY Weinstein Ot Z53.8 PROCEDURE AND TREATMENT NOT CARRIED OUT 02/28/2018 RYAN VAUGHAN Mary Beth SILK BRUSHER Ot I10 ESSENTIAL (PRIMARY) HYPERTENSION 02/28/2018 MELVI VAUGHANLUCAS Clinton SILK BRUSHER Ot R61 GENERALIZED HYPERHIDROSIS 02/28/2018 NELI MCBRIDE GEAR HOBBER Ot I10 ESSENTIAL (PRIMARY) HYPERTENSION 02/28/2018 GINGER ARANDA FACC, ALI FACP CCDS Ot I10 ESSENTIAL (PRIMARY) HYPERTENSION 02/28/2018 GINGER ARANDA FACC, ALI FACP CCDS Ot R00.2 PALPITATIONS 02/28/2018 GINGER ARANDA FACC, ALI FACP CCDS Ot R06.02 SHORTNESS OF BREATH 02/28/2018 GINGER ARANDA FACC, ALI FACP CCDS Ot I10 ESSENTIAL (PRIMARY) HYPERTENSION 02/28/2018 GINGER ARANDA FACC, ALI FACP CCDS Ot R00.2 PALPITATIONS 02/28/2018 GINGER ARANDA FACC, ALI FACP CCDS Ot R06.02 SHORTNESS OF BREATH 02/28/2018 FREDDIE, DONALD L SILK BRUSHER Ot E78.5 HYPERLIPIDEMIA, UNSPECIFIED 02/28/2018 FREDDIE, DONALD L SILK BRUSHER Ot F41.1 GENERALIZED ANXIETY DISORDER 02/28/2018 FREDDIE, DONALD L SILK BRUSHER Ot I10 ESSENTIAL (PRIMARY) HYPERTENSION 02/28/2018 FREDDIE, DONALD L SILK BRUSHER Ot M79.1 MYALGIA 02/28/2018 FREDDIE, DONALD L SILK BRUSHER Ot R42 DIZZINESS AND GIDDINESS 02/28/2018 FREDDIE, DONALD L SILK BRUSHER Ot R53.83 OTHER FATIGUE 03/05/2018 MARTA ARANDA, BRITTNY C Ot R53.83 OTHER FATIGUE 03/05/2018 KEISHA ARANDA, MARY Weinstein Ot 805.4 FX LUMBAR VERTEBRA-CLOSE 03/05/2018 KEISHA ARANDA, MARY Weinstein Ot E000.8 OTHER EXTERNAL CAUSE STATUS 03/05/2018 KEISHA ARANDA, MARY Weinstein Ot E888.9 FALL NOS 03/05/2018 MELCHOR ALDANA GEAR HOBBER Ot 557.1 CHR VASC INSUFF INTEST 03/05/2018 MELCHOR ALDANA GEAR HOBBER Ot 562.10 DIVERTICULOSIS COLON (W/O MENT OF HEMORR 03/05/2018 MELCHOR ALDANA GEAR HOBBER Ot 787.3 FLATUL/ERUCTAT/GAS PAIN 03/05/2018 MELCHOR ALDANA GEAR HOBBER Ot 787.91 DIARRHEA 03/05/2018 MELCHOR ALDANA GEAR HOBBER Ot 789.00 ABDOMINAL PAIN, UNSPECIFIED SITE 03/05/2018 Ot 733.13 PATHOLOGIC FRACTURE, VERTEBRAE 03/05/2018 IJEOMA CHIU MD Ot 733.13 PATHOLOGIC FRACTURE, VERTEBRAE 03/05/2018 IJEOMA CHIU MD Ot V72.63 PRE-PROCEDURAL LABORATORY EXAMINATION 03/05/2018 IJEOMA CHIU MD Ot V74.8 SCREEN-BACTERIAL DIS NEC 03/05/2018 IJEOMA CHIU MD Ot Z01.812 ENCOUNTER FOR PREPROCEDURAL LABORATORY E 03/05/2018 KEISHA ARANDA, MARY Weinstein Ot 562.10 DIVERTICULOSIS COLON (W/O MENT OF HEMORR 03/05/2018 KEISHA ARANDA, MARY Weinstein Ot 780.60 FEVER, UNSPECIFIED 03/05/2018 KEISHA ARANDA, MARY Weinstein Ot M12.9 ARTHROPATHY, UNSPECIFIED 03/05/2018 KEISHA ARANDA, MARY Weinstein Ot M48.06 SPINAL STENOSIS, LUMBAR REGION 03/05/2018 KEISHA ARANDA, MARY Weinstein Ot 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, 03/05/2018 ELVI ARANDA, BELEN Dickerson Ot 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 RADICULO 03/05/2018 MARY VALDES MD Ot K57.30 DVRTCLOS OF LG INT W/O PERFORATION OR AB 03/05/2018 MARY VALDES MD Ot M54.12 RADICULOPATHY, CERVICAL REGION 03/05/2018 MARY VALDES MD Ot Z53.8 PROCEDURE AND TREATMENT NOT CARRIED OUT 03/05/2018 RYAN VAUGHAN SILK BRUSHER Ot I10 ESSENTIAL (PRIMARY) HYPERTENSION 03/05/2018 RYAN VAUGHAN SILK BRUSHER Ot R61 GENERALIZED HYPERHIDROSIS 03/05/2018 NELI MCBRIDE GEAR HOBBER Ot I10 ESSENTIAL (PRIMARY) HYPERTENSION 03/05/2018 GINGER ARANDA FACC, ALI FACP CCDS Ot I10 ESSENTIAL (PRIMARY) HYPERTENSION 03/05/2018 GINGER ARANDA [facility], ALI FACP CCDS Ot R00.2 PALPITATIONS 03/05/2018 GINGER ARANDA [facility], ALI FACP CCDS Ot R06.02 SHORTNESS OF BREATH 03/05/2018 GINGER ARANDA [facility], ALI FACP CCDS Ot I10 ESSENTIAL (PRIMARY) HYPERTENSION 03/05/2018 GINGER ARANDA [facility], ALI FACP CCDS Ot R00.2 PALPITATIONS 03/05/2018 GINGER ARANDA [facility], ALI FACP CCDS Ot R06.02 SHORTNESS OF BREATH 03/05/2018 FREDDIE, DONALD L SILK BRUSHER Ot E78.5 HYPERLIPIDEMIA, UNSPECIFIED 03/05/2018 FREDDIE, DONALD L SILK BRUSHER Ot F41.1 GENERALIZED ANXIETY DISORDER 03/05/2018 FREDDIE, DONALD L SILK BRUSHER Ot I10 ESSENTIAL (PRIMARY) HYPERTENSION 03/05/2018 FREDDIE, DONALD L SILK BRUSHER Ot M79.1 MYALGIA 03/05/2018 FREDDIE, DONALD L SILK BRUSHER Ot R42 DIZZINESS AND GIDDINESS 03/05/2018 FREDDIE, DONALD L SILK BRUSHER Ot R53.83 OTHER FATIGUE 03/05/2018 MARTA ARANDA, BRITTNY C Ot R53.83 OTHER FATIGUE 03/06/2018 KEISHA ARANDA, MARY Weinstein Ot 805.4 FX LUMBAR VERTEBRA-CLOSE 03/06/2018 KEISHA ARANDA, MARY L Ot E000.8 OTHER EXTERNAL CAUSE STATUS 03/06/2018 KEISHA ARANDA, MARY L Ot E888.9 FALL NOS 03/06/2018 MELCHOR ALDANA GEAR HOBBER Ot 557.1 CHR VASC INSUFF INTEST 03/06/2018 MELCHOR ALDANA GEAR HOBBER Ot 562.10 DIVERTICULOSIS COLON (W/O MENT OF HEMORR 03/06/2018 MELCHOR ALDANA GEAR HOBBER Ot 787.3 FLATUL/ERUCTAT/GAS PAIN 03/06/2018 MELCHOR ALDANA GEAR HOBBER Ot 787.91 DIARRHEA 03/06/2018 MELCHOR ALDANA GEAR HOBBER Ot 789.00 ABDOMINAL PAIN, UNSPECIFIED SITE 03/06/2018 Ot 733.13 PATHOLOGIC FRACTURE, VERTEBRAE 03/06/2018 IJEOMA CHIU MD Ot 733.13 PATHOLOGIC FRACTURE, VERTEBRAE 03/06/2018 IJEOMA CHIU MD Ot V72.63 PRE-PROCEDURAL LABORATORY EXAMINATION 03/06/2018 IJEOMA CHIU MD Ot V74.8 SCREEN-BACTERIAL DIS NEC 03/06/2018 IJEOMA CHIU MD Ot Z01.812 ENCOUNTER FOR PREPROCEDURAL LABORATORY E 03/06/2018 KEISHA ARANDA, MARY Weinstein Ot 562.10 DIVERTICULOSIS COLON (W/O MENT OF HEMORR 03/06/2018 KEISHA ARANDA, MARY Weinstein Ot 780.60 FEVER, UNSPECIFIED 03/06/2018 KEISHA ARANDA, MARY Weinstein Ot M12.9 ARTHROPATHY, UNSPECIFIED 03/06/2018 KEISHA ARANDA, MARY Weinstein Ot M48.06 SPINAL STENOSIS, LUMBAR REGION 03/06/2018 MARY VALDES MD Ot 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, 03/06/2018 BELEN BOLES MD Ot 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 RADICULO 03/06/2018 MARY VALDES MD Ot K57.30 DVRTCLOS OF LG INT W/O PERFORATION OR AB 03/06/2018 KEISHA ARANDA, MARY Weinstein Ot M54.12 RADICULOPATHY, CERVICAL REGION 03/06/2018 MARY VALDES MD Ot Z53.8 PROCEDURE AND TREATMENT NOT CARRIED OUT 03/06/2018 RYAN VAUGHAN SILK BRUSHER Ot I10 ESSENTIAL (PRIMARY) HYPERTENSION 03/06/2018 RYAN VAUGHAN SILK BRUSHER Ot R61 GENERALIZED HYPERHIDROSIS 03/06/2018 NELI MCBRIDE GEAR HOBBER Ot I10 ESSENTIAL (PRIMARY) HYPERTENSION 03/06/2018 GINGER ARANDA FACC, ALI FACP CCDS Ot I10 ESSENTIAL (PRIMARY) HYPERTENSION 03/06/2018 GINGER ARANDA FACC, ALI FACP CCDS Ot R00.2 PALPITATIONS 03/06/2018 GINGER ARANDA FACC, ALI FACP CCDS Ot R06.02 SHORTNESS OF BREATH 03/06/2018 GINGER ARANDA FACC, ALI FACP CCDS Ot I10 ESSENTIAL (PRIMARY) HYPERTENSION 03/06/2018 GINGER ARANDA FACC, ALI FACP CCDS Ot R00.2 PALPITATIONS 03/06/2018 GINGER ARANDA FACC, ALI FACP CCDS Ot R06.02 SHORTNESS OF BREATH 03/06/2018 DONALD FRAZIER SILK BRUSHER Ot E78.5 HYPERLIPIDEMIA, UNSPECIFIED 03/06/2018 FREDDIEDONALD SILK BRUSHER Ot F41.1 GENERALIZED ANXIETY DISORDER 03/06/2018 FREDDIEDONALD SILK BRUSHER Ot I10 ESSENTIAL (PRIMARY) HYPERTENSION 03/06/2018 FREDDIEDONALD SILK BRUSHER Ot M79.1 MYALGIA 03/06/2018 FREDDIEDONALD SILK BRUSHER Ot R42 DIZZINESS AND GIDDINESS 03/06/2018 FREDDIEDONALD SILK BRUSHER Ot R53.83 OTHER FATIGUE 03/06/2018 MARTA ARANDA, BRITTNY Tapia Ot R53.83 OTHER FATIGUE Procedures There is no data. Results Test Result Range [facility] - 07/06/16 09:05 Anion Gap [...] 0.8 mg/dL 0.2-1.2 TP 7.2 g/dL 6.0-8.3 [facility] - 06/13/17 10:30 Anion Gap [...] i.cardiac measurement (mass/volume) < ng/ mL <0.30 Complete blood count (CBC) with automated white blood cell (WBC) differential - 01/11/18 07:58 Blood leukocytes automated count (number/volume) 6.5 10*3/uL 4.3-11.0 Blood erythrocytes automated count (number/volume) 4.49 10*6/uL 4.35-5.85 Venous blood hemoglobin measurement (mass/volume) 14.1 g/dL 13.3-17.7 Blood hematocrit (volume fraction) 40 % 40-54 Automated erythrocyte mean corpuscular volume 89 [foz_us] 80-99 Automated erythrocyte mean corpuscular hemoglobin (mass per erythrocyte) 31 pg 25-34 Automated erythrocyte mean corpuscular hemoglobin concentration measurement ( mass/volume) 35 g/dL 32-36 Automated erythrocyte distribution width ratio 12.4 % 10.0-14.5 Automated blood platelet count (count/volume) 274 10*3/uL 130-400 Automated blood platelet mean volume measurement 9.8 [foz_us] 7.4-10.4 Automated blood neutrophils/100 leukocytes 70 % 42-75 Automated blood lymphocytes/100 leukocytes 18 % 12-44 Blood monocytes/100 leukocytes 10 % 0-12 Automated blood eosinophils/100 leukocytes 2 % 0-10 Automated blood basophils/100 leukocytes 0 % 0-10 Blood neutrophils automated count (number/volume) 4.6 10*3 1.8-7.8 Blood lymphocytes automated count (number/volume) 1.2 10*3 1.0-4.0 Blood monocytes automated count (number/volume) 0.6 10*3 0.0-1.0 Automated eosinophil count 0.1 10*3/uL 0.0-0.3 Automated blood basophil count (count/volume) 0.0 10*3/uL 0.0-0.1 Erythrocyte sedimentation rate by westergren method - 01/11/18 07:58 Erythrocyte sedimentation rate by westergren method 13 mm 0-30 Comprehensive metabolic panel - 01/11/18 07:58 Serum or plasma sodium measurement (moles/volume) 142 mmol/L 135-145 Serum or plasma potassium measurement (moles/volume) 4.1 mmol/L 3.6-5.0 Serum or plasma chloride measurement (moles/volume) 107 mmol/L 98-107 Carbon dioxide 26 mmol/L 21-32 Serum or plasma anion gap determination (moles/volume) 9 mmol/L 5-14 Serum or plasma urea nitrogen measurement (mass/volume) 11 mg/dL 7-18 Serum or plasma creatinine measurement (mass/volume) 0.83 mg/dL 0.60-1.30 Serum or plasma urea nitrogen/creatinine mass ratio 13 NRG Serum or plasma creatinine measurement with calculation of estimated glomerular filtration rate > NRG Serum or plasma glucose measurement (mass/volume) 107 mg/dL 70-105 Serum or plasma calcium measurement (mass/volume) 9.9 mg/dL 8.5-10.1 Serum or plasma total bilirubin measurement (mass/volume) 2.0 mg/dL 0.1-1.0 Serum or plasma alkaline phosphatase measurement (enzymatic activity/volume) 61 U/L 40-136 Serum or plasma aspartate aminotransferase measurement (enzymatic activity/ volume) 13 U/L 5-34 Serum or plasma alanine aminotransferase measurement (enzymatic activity/volume ) 12 U/L 0-55 Serum or plasma protein measurement (mass/volume) 6.9 g/dL 6.4-8.2 Serum or plasma albumin measurement (mass/volume) 4.4 g/dL 3.2-4.5 Magnesium - 01/11/18 07:58 Magnesium 1.9 mg/dL 1.8-2.4 THYROID STIMULATING HORMONE - 01/11/18 07:58 THYROID STIMULATING HORMONE 2.12 u[iU]/mL 0.35-4.94 Complete blood count (CBC) with automated white blood cell (WBC) differential - 01/16/18 22:15 Blood leukocytes automated count (number/volume) 7.4 10*3/uL 4.3-11.0 Blood erythrocytes automated count (number/volume) 4.60 10*6/uL 4.35-5.85 Venous blood hemoglobin measurement (mass/volume) 14.5 g/dL 13.3-17.7 Blood hematocrit (volume fraction) 40 % 40-54 Automated erythrocyte mean corpuscular volume 88 [foz_us] 80-99 Automated erythrocyte mean corpuscular hemoglobin (mass per erythrocyte) 32 pg 25-34 Automated erythrocyte mean corpuscular hemoglobin concentration measurement ( mass/volume) 36 g/dL 32-36 Automated erythrocyte distribution width ratio 12.3 % 10.0-14.5 Automated blood platelet count (count/volume) 251 10*3/uL 130-400 Automated blood platelet mean volume measurement 10.1 [foz_us] 7.4-10.4 Automated blood neutrophils/100 leukocytes 66 % 42-75 Automated blood lymphocytes/100 leukocytes 24 % 12-44 Blood monocytes/100 leukocytes 8 % 0-12 Automated blood eosinophils/100 leukocytes 2 % 0-10 Automated blood basophils/100 leukocytes 0 % 0-10 Blood neutrophils automated count (number/volume) 4.9 10*3 1.8-7.8 Blood lymphocytes automated count (number/volume) 1.7 10*3 1.0-4.0 Blood monocytes automated count (number/volume) 0.6 10*3 0.0-1.0 Automated eosinophil count 0.2 10*3/uL 0.0-0.3 Automated blood basophil count (count/volume) 0.0 10*3/uL 0.0-0.1 PT panel in platelet poor plasma by coagulation assay - 01/16/18 22:15 Prothrombin time (PT) in platelet poor plasma by coagulation assay 12.1 s 12.2-14.7 INR in platelet poor plasma or blood by coagulation assay 0.9 0.8-1.4 Activated partial thromboplastin time (aPTT) in platelet poor plasma bycoagulation assay - 01/16/18 22:15 Activated partial thromboplastin time (aPTT) in platelet poor plasma bycoagulation assay 37 s 24-35 Comprehensive metabolic panel - 01/16/18 22:15 Serum or plasma sodium measurement (moles/volume) 140 mmol/L 135-145 Serum or plasma potassium measurement (moles/volume) 3.8 mmol/L 3.6-5.0 Serum or plasma chloride measurement (moles/volume) 105 mmol/L 98-107 Carbon dioxide 24 mmol/L 21-32 Serum or plasma anion gap determination (moles/volume) 11 mmol/L 5-14 Serum or plasma urea nitrogen measurement (mass/volume) 9 mg/dL 7-18 Serum or plasma creatinine measurement (mass/volume) 0.80 mg/dL 0.60-1.30 Serum or plasma urea nitrogen/creatinine mass ratio 11 NRG Serum or plasma creatinine measurement with calculation of estimated glomerular filtration rate > NRG Serum or plasma glucose measurement (mass/volume) 112 mg/dL 70-105 Serum or plasma calcium measurement (mass/volume) 10.1 mg/dL 8.5-10.1 Serum or plasma total bilirubin measurement (mass/volume) 1.0 mg/dL 0.1-1.0 Serum or plasma alkaline phosphatase measurement (enzymatic activity/volume) 78 U/L 40-136 Serum or plasma aspartate aminotransferase measurement (enzymatic activity/ volume) 14 U/L 5-34 Serum or plasma alanine aminotransferase measurement (enzymatic activity/volume ) 14 U/L 0-55 Serum or plasma protein measurement (mass/volume) 7.0 g/dL 6.4-8.2 Serum or plasma albumin measurement (mass/volume) 4.4 g/dL 3.2-4.5 CALCIUM CORRECTED 9.8 mg/dL 8.5-10.1 Magnesium - 01/16/18 22:15 Magnesium 1.6 mg/dL 1.8-2.4 Serum or plasma troponin i.cardiac measurement (mass/volume) - 01/16/18 22:15 Serum or plasma troponin i.cardiac measurement (mass/volume) < ng/ mL <0.30 Myoglobin, serum - 01/16/18 22:15 Myoglobin, serum 22.6 ng/mL 10.0-92.0 Serum or plasma lithium measurement (moles/volume) - 01/16/18 22:15 BNP level 121.1 pg/mL <100.0 Complete blood count (CBC) with automated white blood cell (WBC) differential - 02/09/18 16:59 Blood leukocytes automated count (number/volume) 13.6 10*3/uL 4.3-11.0 Blood erythrocytes automated count (number/volume) 4.58 10*6/uL 4.35-5.85 Venous blood hemoglobin measurement (mass/volume) 14.4 g/dL 13.3-17.7 Blood hematocrit (volume fraction) 39 % 40-54 Automated erythrocyte mean corpuscular volume 84 [foz_us] 80-99 Automated erythrocyte mean corpuscular hemoglobin (mass per erythrocyte) 31 pg 25-34 Automated erythrocyte mean corpuscular hemoglobin concentration measurement ( mass/volume) 37 g/dL 32-36 Automated erythrocyte distribution width ratio 12.2 % 10.0-14.5 Automated blood platelet count (count/volume) 281 10*3/uL 130-400 Automated blood platelet mean volume measurement 9.7 [foz_us] 7.4-10.4 Automated blood neutrophils/100 leukocytes 77 % 42-75 Automated blood lymphocytes/100 leukocytes 14 % 12-44 Blood monocytes/100 leukocytes 7 % 0-12 Automated blood eosinophils/100 leukocytes 1 % 0-10 Automated blood basophils/100 leukocytes 0 % 0-10 Blood neutrophils automated count (number/volume) 10.5 10*3 1.8-7.8 Blood lymphocytes automated count (number/volume) 1.9 10*3 1.0-4.0 Blood monocytes automated count (number/volume) 1.0 10*3 0.0-1.0 Automated eosinophil count 0.2 10*3/uL 0.0-0.3 Automated blood basophil count (count/volume) 0.0 10*3/uL 0.0-0.1 Comprehensive metabolic panel - 02/09/18 16:59 Serum or plasma sodium measurement (moles/volume) 131 mmol/L 135-145 Serum or plasma potassium measurement (moles/volume) 3.8 mmol/L 3.6-5.0 Serum or plasma chloride measurement (moles/volume) 98 mmol/L 98-107 Carbon dioxide 23 mmol/L 21-32 Serum or plasma anion gap determination (moles/volume) 10 mmol/L 5-14 Serum or plasma urea nitrogen measurement (mass/volume) 13 mg/dL 7-18 Serum or plasma creatinine measurement (mass/volume) 1.12 mg/dL 0.60-1.30 Serum or plasma urea nitrogen/creatinine mass ratio 12 NRG Serum or plasma creatinine measurement with calculation of estimated glomerular filtration rate > NRG Serum or plasma glucose measurement (mass/volume) 126 mg/dL 70-105 Serum or plasma calcium measurement (mass/volume) 9.8 mg/dL 8.5-10.1 Serum or plasma total bilirubin measurement (mass/volume) 1.1 mg/dL 0.1-1.0 Serum or plasma alkaline phosphatase measurement (enzymatic activity/volume) 69 U/L 40-136 Serum or plasma aspartate aminotransferase measurement (enzymatic activity/ volume) 13 U/L 5-34 Serum or plasma alanine aminotransferase measurement (enzymatic activity/volume ) 14 U/L 0-55 Serum or plasma protein measurement (mass/volume) 7.1 g/dL 6.4-8.2 Serum or plasma albumin measurement (mass/volume) 4.5 g/dL 3.2-4.5 CALCIUM CORRECTED 9.4 mg/dL 8.5-10.1 Tick identification panel - 02/09/18 16:59 Serum Ehrlichia chaffeensis IgG antibody detection <1:16 <1:16 Serum Ehrlichia chaffeensis IgM antibody detection <1:10 <1:10 Serum Rickettsia rickettsii IgG antibody assay (units/volume) < <1:16 [place] spotted fever panel < <1:10 Francisella tularensis antibody assay 1:80 NRG LYME AB G M 0.10 % 0.00-0.89 Interpretation of Lyme disease antibody assay Negative Negative Automated blood complete blood count (hemogram) panel - 03/01/18 07:50 Blood leukocytes automated count (number/volume) 5.7 10*3/uL 4.3-11.0 Blood erythrocytes automated count (number/volume) 4.31 10*6/uL 4.35-5.85 Venous blood hemoglobin measurement (mass/volume) 13.7 g/dL 13.3-17.7 Blood hematocrit (volume fraction) 37 % 40-54 Automated erythrocyte mean corpuscular volume 85 [foz_us] 80-99 Automated erythrocyte mean corpuscular hemoglobin (mass per erythrocyte) 32 pg 25-34 Automated erythrocyte mean corpuscular hemoglobin concentration measurement ( mass/volume) 37 g/dL 32-36 Automated erythrocyte distribution width ratio 12.6 % 10.0-14.5 Automated blood platelet count (count/volume) 250 10*3/uL 130-400 Automated blood platelet mean volume measurement 9.7 [foz_us] 7.4-10.4 Serum or plasma testosterone measurement (mass/volume) - 03/01/18 07:50 Testosterone [mass or moles/volume] in serum or plasma 387.38 % 220.91-715.81 Complete blood count (CBC) with automated white blood cell (WBC) differential - 03/05/18 23:18 Blood leukocytes automated count (number/volume) 6.9 10*3/uL 4.3-11.0 Blood erythrocytes automated count (number/volume) 4.22 10*6/uL 4.35-5.85 Venous blood hemoglobin measurement (mass/volume) 13.5 g/dL 13.3-17.7 Blood hematocrit (volume fraction) 35 % 40-54 Automated erythrocyte mean corpuscular volume 82 [foz_us] 80-99 Automated erythrocyte mean corpuscular hemoglobin (mass per erythrocyte) 32 pg 25-34 Automated erythrocyte mean corpuscular hemoglobin concentration measurement ( mass/volume) 39 g/dL 32-36 Automated erythrocyte distribution width ratio 12.5 % 10.0-14.5 Automated blood platelet count (count/volume) 255 10*3/uL 130-400 Automated blood platelet mean volume measurement 9.8 [foz_us] 7.4-10.4 Automated blood neutrophils/100 leukocytes 64 % 42-75 Automated blood lymphocytes/100 leukocytes 23 % 12-44 Blood monocytes/100 leukocytes 10 % 0-12 Automated blood eosinophils/100 leukocytes 3 % 0-10 Automated blood basophils/100 leukocytes 0 % 0-10 Blood neutrophils automated count (number/volume) 4.4 10*3 1.8-7.8 Blood lymphocytes automated count (number/volume) 1.6 10*3 1.0-4.0 Blood monocytes automated count (number/volume) 0.7 10*3 0.0-1.0 Automated eosinophil count 0.2 10*3/uL 0.0-0.3 Automated blood basophil count (count/volume) 0.0 10*3/uL 0.0-0.1 Comprehensive metabolic panel - 03/05/18 23:18 Serum or plasma sodium measurement (moles/volume) 125 mmol/L 135-145 Serum or plasma potassium measurement (moles/volume) 3.6 mmol/L 3.6-5.0 Serum or plasma chloride measurement (moles/volume) 91 mmol/L 98-107 Carbon dioxide 24 mmol/L 21-32 Serum or plasma anion gap determination (moles/volume) 10 mmol/L 5-14 Serum or plasma urea nitrogen measurement (mass/volume) 10 mg/dL 7-18 Serum or plasma creatinine measurement (mass/volume) 0.90 mg/dL 0.60-1.30 Serum or plasma urea nitrogen/creatinine mass ratio 11 NRG Serum or plasma creatinine measurement with calculation of estimated glomerular filtration rate > NRG Serum or plasma glucose measurement (mass/volume) 157 mg/dL 70-105 Serum or plasma calcium measurement (mass/volume) 9.6 mg/dL 8.5-10.1 Serum or plasma total bilirubin measurement (mass/volume) 1.0 mg/dL 0.1-1.0 Serum or plasma alkaline phosphatase measurement (enzymatic activity/volume) 60 U/L 40-136 Serum or plasma aspartate aminotransferase measurement (enzymatic activity/ volume) 15 U/L 5-34 Serum or plasma alanine aminotransferase measurement (enzymatic activity/volume ) 12 U/L 0-55 Serum or plasma protein measurement (mass/volume) 6.6 g/dL 6.4-8.2 Serum or plasma albumin measurement (mass/volume) 4.3 g/dL 3.2-4.5 CALCIUM CORRECTED 9.4 mg/dL 8.5-10.1 Magnesium - 03/05/18 23:18 Magnesium 1.4 mg/dL 1.8-2.4 Serum or plasma troponin i.cardiac measurement (mass/volume) - 03/05/18 23:18 Serum or plasma troponin i.cardiac measurement (mass/volume) < ng/ mL <0.30 Encounters ACCT No. Visit Date/Time Discharge Status Pt. Type Provider Facility Loc./Unit Complaint [id number] 03/05/2018 23:10:00 03/06/2018 01:15:00 DIS Emergency ARCELIA ARANDA, BHAKTI Chavis [facility] ER ARRHYTHMIA,NAUSEA [id number] 03/01/2018 07:42:00 03/01/2018 23:59:59 CLS Outpatient BRITTNY LOZANO MD [facility] LAB LOW TESTOSTERONE SYMPTOMS ,FATIGUE [id number] 02/09/2018 16:42:00 02/09/2018 23:59:59 CLS Outpatient DONALD FRAZIER APRN [facility] LAB FATIGUE;DIZZINESS; HYPERTENSION;LIGHTHEADED;MYALGIA [id number] 02/08/2018 07:39:00 02/08/2018 23:59:59 CLS Outpatient MIQUEL MILES MD, FACC, FACP CCDS [facility] CARD PALPITATIONS, SOB,HTN [id number] 02/06/2018 11:02:00 02/06/2018 23:59:59 CLS Outpatient MIQUEL MILES MD, FACC, FACP CCDS [facility] CARD PALPITATIONS, SOB,HTN [id number] 01/08/2018 14:03:00 01/08/2018 23:59:59 CLS Preadmit NELI MCBRIDE [facility] RAD HTN [id number] 01/08/2018 13:57:00 01/08/2018 23:59:59 CLS Outpatient NELI MCBRIDE [facility] CARD HTN [id number] 01/06/2018 14:58:00 01/06/2018 16:10:00 DIS Emergency MAGNO FOLEY APRN [facility] ER ELEV BP [id number] 12/23/2017 08:59:00 12/23/2017 10:05:00 DIS Emergency GABRIELA BLAIR DO [facility] ER HIGH BLOOD PRESSURE, NAUSEA [id number] 2017 09:34:00 2017 23:59:59 CLS Outpatient RYAN VAUGHAN APRN [facility] CARD HTN,DIAPHORESIS [id number] 2017 17:29:00 2017 19:07:00 DIS Emergency FOLEYMAGNO SILK BRUSHER [facility] ER HIGH BP [id number] 10/18/2017 19:08:00 10/18/2017 22:50:00 DIS Emergency BHAKTI PANIAGUA MD [facility] ER HIGH BP [id number] 08/21/2017 12:37:00 08/21/2017 23:59:59 CLS Outpatient MARY VALDES MD [facility] RAD CERVICALGIA [id number] 09/06/2016 09:37:00 09/06/2016 23:59:59 CLS Outpatient MARY VALDES MD [facility] RAD DIVERTICULITIS [id number] 04/01/2016 07:19:00 04/01/2016 08:15:00 DIS Outpatient BELEN BOLES MD [facility] CARD DISC DISORER [id number] 12/25/2015 08:37:00 12/25/2015 23:59:59 CLS Outpatient BELEN BOLES MD [facility] CARD DISC DISORDER W/ RADICULOPATHY [id number] 10/27/2015 08:58:00 10/27/2015 23:59:59 CLS Outpatient MARY VALDES MD [facility] RAD LUMBAR PAIN, RADICULOPATHY [id number] 03/03/2015 18:35:00 03/03/2015 23:59:59 CLS Outpatient MARY VALDES MD [facility] RAD FEVER,ABD PAIN, DIVERTICULOSIS [id number] 02/09/2015 10:55:00 02/09/2015 16:55:00 DIS Outpatient IJEOMA CHIU MD [facility] SDC COMPRESSION FRACTURE [id number] 02/04/2015 09:19:00 02/04/2015 23:59:59 CLS Outpatient IJEOMA CHIU MD [facility] PREOP COMPRESSION FRACTURE [id number] 10/31/2014 14:27:00 10/31/2014 23:59:59 CLS Outpatient MELCHOR ALDANA [facility] RAD ABD PAIN,DIARRHEA [id number] 10/31/2014 17:30:00 10/31/2014 18:54:00 DIS Emergency NING RIOS MD [facility] ER LOWER INTESTINE BLOCKAGE [id number] 10/30/2014 14:36:00 10/30/2014 23:59:59 CLS Outpatient MARY VALDES MD [facility] RAD LUMBAR PAIN, FALL [id number] 12/05/2012 09:20:00 12/05/2012 23:59:59 CLS Outpatient MARY VALDES MD [facility] LAB HTN [id number] 01/16/2018 22:32:00 Document Registration [id number] 01/26/2015 09:08:00 Document Registration [id number] 10/30/2014 14:35:00 Document Registration [id number] 08/31/2012 14:55:00 Document Registration [id number] 07/04/2012 08:44:00 Document Registration [id number] 08/29/2011 13:00:00 Document Registration [id number] 02/01/2011 07:54:00 Document Registration [id number] 01/02/2018 08:53:00 01/02/2018 23:59:59 CLS Outpatient [id number] 01/17/2018 19:12:00 01/17/2018 20:30:00 DIS Outpatient Koffi Workman [id number] 10/26/2017 12:06:00 10/26/2017 23:59:00 DIS Outpatient MARY VALDES [id number] 10/16/2017 16:45:00 10/16/2017 23:59:00 DIS Outpatient Reyna Thorpe [id number] 10/16/2017 11:24:00 10/16/2017 23:59:00 DIS Outpatient Reyna Thorpe [id number] 06/13/2017 11:53:00 06/13/2017 23:59:00 DIS Outpatient MARY VALDES [id number] 09/06/2016 08:40:00 09/06/2016 23:59:00 DIS Outpatient MARY VALDES [id number] 07/06/2016 09:18:00 07/06/2016 23:59:00 DIS Outpatient MARY VALDES [id number] 08/28/2017 15:07:46 08/28/2017 23:59:59 [facility] Outpatient [id number] 08/05/2017 09:20:00 08/05/2017 23:59:59 [facility] Outpatient [facility]
[2018-03-06 20:43] LABS: BASOPHILS % (AUTO) 0 % (0-10); EOSINOPHILS # (AUTO) 0.2 10^3/uL (0.0-0.3); EOSINOPHILS % (AUTO) 2 % (0-10); HEMATOCRIT 36 % (40-54); HEMOGLOBIN 13.8 G/DL (13.3-17.7); LYMPHOCYTES # (AUTO) 1.2 X 10^3 (1.0-4.0); LYMPHOCYTES % (AUTO) 14 % (12-44); MEAN CORPUSCULAR HEMOGLOBIN 31 PG (25-34); MEAN CORPUSCULAR HGB CONC 38 G/DL (32-36); MEAN CORPUSCULAR VOLUME 83 FL (80-99); MEAN PLATELET VOLUME 9.7 FL (7.4-10.4); MONOCYTES # (AUTO) 0.8 X 10^3 (0.0-1.0); MONOCYTES % (AUTO) 9 % (0-12); NEUTROPHILS # (AUTO) 6.5 X 10^3 (1.8-7.8); NEUTROPHILS % (AUTO) 75 % (42-75); PLATELET COUNT 296 10^3/uL (130-400); RED CELL DISTRIBUTION WIDTH 12.9 % (10.0-14.5); WHITE BLOOD COUNT 8.8 10^3/uL (4.3-11.0)
[2018-03-06 20:44] VITALS: BP 175/94
[2018-03-06 20:46] VITALS: BP 171/91
[2018-03-06 20:48] VITALS: BP 173/94
[2018-03-06 21:00] LABS: BUN/CREATININE RATIO 10; CALCIUM 9.9 MG/DL (8.5-10.1); CARBON DIOXIDE 23 MMOL/L (21-32); CHLORIDE 95 MMOL/L (98-107); CREATININE SERUM 0.78 MG/DL (0.60-1.30); GFR ESTIMATED > 60; GLUCOSE 110 MG/DL (70-105); MAGNESIUM 1.7 MG/DL (1.8-2.4); SODIUM 128 MMOL/L (135-145)
--- NOTE | 2018-03-06 21:15 | Diagnostic Imaging Report ---
INDICATION: Elevated blood pressure and weakness. Time of exam: 9:25 PM Correlation is made with prior chest from 01/16/2018. The heart size is normal. The pulmonary vascularity is unremarkable. The lungs are clear. No infiltrate, effusion or pneumothorax is detected. Impression: No acute cardiopulmonary process is detected. Dictated by: Dictated on workstation # [id number]
--- NOTE | 2018-03-06 21:23 | ED General ---
General Chief Complaint: General Problems/Pain Stated Complaint: ELEVATED BP,WEAKNESS Nursing Triage Note: PT AMB TO ROOM #4 WHILE HOLDING ONTO FOR ASSISTNACE. UPON ARRIVAL TO ED PT KNEES NOTED TO BE SHAKING AND PT UNABLE TO WALK IN STRAIGHT LINE W/O HELP OF AT SIDE. PT REPORTS HE CAME FROM [facility] WHERE HE HAD VARIABLE DIFFERNECE IN ORTHOSTATIC BP'S TAKEN IN CLINIC. PT REPORTS HE WAS SEEN IN THIS ED LAST NOC W/ CO OF HEART PALPITAIONS AND WAS MEDICALLY CLEARED FOR DC. PT REPORTS SINCE THIS AM SYMPTOMS HAVE BEEN PROGRESSIVELY GETTING WORSE. PT REPORTS WEAKNESS, INCREASED BP, HOT FLASHES, DIZZINESS, AND NAUSEA. REPORTS FOR PAST 3 WKS PT HAS BEEN BEING TX FOR TULAREMIA. DENIES ANY PAIN. Nursing Sepsis Screen: No Definite Risk Source of Information: Patient, Family, Old Records Exam Limitations: No Limitations History of Present Illness Date Seen by Provider: Mar 06, 2018 Time Seen by Provider: 20:21 Initial Comments This 62-year-old gentleman presents to the emergency room with complaints of elevated blood pressure and an episode of shakiness, warmth, dizziness, and weakness that started abruptly after waking from a nap this afternoon. He felt like he was "roasting on the inside" but did not have a fever. The tremoring lasted about 2 hours. He has medication for anxiety but did not take any at home. He reports a dry cough. He denies any gastrointestinal or urinary symptoms. He has been to the ER multiple times recently including a visit to this provider last night. He reports presenting to urgent care prior to the ER. He reports abnormal orthostatic blood pressures there. He was referred to the emergency room. Yesterday he was found to have hyponatremia and was advised to stop hydrochlorothiazide. He reports Dr. Lozano changed his medication to losartan today. See note from yesterday for more details. Allergies and Home Medications Allergies Coded Allergies: dexamethasone (Verified Allergy, Unknown, HTN, POSSIBLE SEROTONIN SYNDROME , 10/18/17) meperidine (Unverified Adverse Reaction, Unknown, 10/31/14) Home Medications Lorazepam 0.5 Mg Tablet, 0.5 MG PO TID PRN for ANXIETY Prescribed by: GABRIELA BLAIR on 12/23/17 0932 [place] 3 Polyunsat Fatty Acids 1,000 Mg Cap, 1,000 MG PO DAILY, (Reported) Ondansetron 4 Mg Tab.rapdis, 4 MG PO Q4H Prescribed by: GABRIELA BLAIR on 12/23/17 0932 Tramadol HCl 50 Mg Tablet, 50 MG PO BID Prescribed by: BUCK MAN on 02/09/15 1240 Patient Home Medication List Home Medication List Reviewed: Yes Review of Systems Review of Systems Constitutional: see HPI EENTM: no symptoms reported Respiratory: see HPI Cardiovascular: see HPI Gastrointestinal: no symptoms reported Genitourinary: no symptoms reported Musculoskeletal: no symptoms reported Skin: no symptoms reported Psychiatric/Neurological: See HPI Hematologic/Lymphatic: No Symptoms Reported Immunological/Allergic: no symptoms reported Past Jlqpztf-Htjwyw-Ihorvp Hx Past Med/Social Hx: Reviewed Nursing Past Med/Soc Hx Patient Social History Alcohol Use: Rarely Uses Number of Drinks Today: AA Alcohol Beverage of Choice: Beer Recreational Drug Use: No Smoking Status: Former Smoker Type Used: Cigarettes Former Smoker, Quit: October 10, 2006 2nd Hand Smoke Exposure: No Recent Foreign Travel: No Contact w/Someone Who Travel: No Recent Infectious Disease Expo: No Recent Hopitalizations: No Physical Abuse: No Sexual Abuse: No Seasonal Allergies Seasonal Allergies: No Past Medical History Surgeries: Yes Abdominal, Appendectomy, Gallbladder, Orthopedic Respiratory: No Cardiac: Yes Hypertension, Irregular Heartbeat, Palpitations Neurological: No Reproductive Disorders: No HIV/AIDS: No Genitourinary: No Gastrointestinal: Yes (TAKES PRILOSEC) Gastroesophageal Reflux, Diverticulosis Musculoskeletal: Yes (BACK SURGERY; L1 COMPRESSION FX WITH KYPHOPLASTY 01/2015 , ) Chronic Back Pain Endocrine: No HEENT: No Loss of Vision: Bilateral Hearing Impairment: Denies Cancer: No Psychosocial: Yes Anxiety Integumentary: No Blood Disorders: Yes (tularemia) Adverse Reaction/Blood Tranf: No Family Medical History No Pertinent Family Hx Physical Exam Vital Signs Vital Signs - First Documented 03/06/18 20:14 Temp 97.4 Pulse 65 Resp 18 B/P (MAP) 168/91 (116) Pulse Ox 98 O2 Delivery Room Air Capillary Refill : Less Than 3 Seconds Height, Weight, BMI Height: 6'0" Weight: 185lbs. 0.0oz. 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3-11.0 10^3/uL Red Blood Count 4.40 4.35-5.85 10^6/uL Hemoglobin 13.8 13.3-17.7 G/DL Hematocrit 36 L 40-54 % Mean Corpuscular Volume 83 80-99 FL Mean Corpuscular Hemoglobin 31 25-34 PG Mean Corpuscular Hemoglobin Concent 38 H 32-36 G/DL Red Cell Distribution Width 12.9 10.0-14.5 % Platelet Count 296 130-400 10^3/uL Mean Platelet Volume 9.7 7.4-10.4 FL Neutrophils (%) (Auto) 75 42-75 % Lymphocytes (%) (Auto) 14 12-44 % Monocytes (%) (Auto) 9 0-12 % Eosinophils (%) (Auto) 2 0-10 % Basophils (%) (Auto) 0 0-10 % Neutrophils # (Auto) 6.5 1.8-7.8 X 10^3 Lymphocytes # (Auto) 1.2 1.0-4.0 X 10^3 Monocytes # (Auto) 0.8 0.0-1.0 X 10^3 Eosinophils # (Auto) 0.2 0.0-0.3 10^3/uL Basophils # (Auto) 0.0 0.0-0.1 10^3/uL Sodium Level 128 L 135-145 MMOL/L Potassium Level 4.0 3.6-5.0 MMOL/L Chloride Level 95 L 98-107 MMOL/L Carbon Dioxide Level 23 21-32 MMOL/L Anion Gap 10 5-14 MMOL/L Blood Urea Nitrogen 8 7-18 MG/DL Creatinine 0.78 0.60-1.30 MG/DL Estimat Glomerular Filtration Rate > 60 BUN/Creatinine Ratio 10 Glucose Level 110 H 70-105 MG/DL Calcium Level 9.9 8.5-10.1 MG/DL Magnesium Level 1.7 L 1.8-2.4 MG/DL Troponin I < 0.30 <0.30 NG/ML Urine Color YELLOW Urine Clarity CLEAR Urine pH 7 5-9 Urine Specific [place] 1.005 L 1.016-1.022 Urine Protein NEGATIVE NEGATIVE Urine Glucose (UA) NEGATIVE NEGATIVE Urine Ketones NEGATIVE NEGATIVE Urine Nitrite NEGATIVE NEGATIVE Urine Bilirubin NEGATIVE NEGATIVE Urine Urobilinogen NORMAL NORMAL MG/DL Urine Leukocyte Esterase NEGATIVE NEGATIVE Urine RBC (Auto) NEGATIVE NEGATIVE Urine RBC NONE /HPF Urine WBC RARE /HPF Urine Crystals NONE /LPF Urine Bacteria NEGATIVE /HPF Urine Casts NONE /LPF Urine Mucus NEGATIVE /LPF Urine Other FEW SPERM H /HPF Urine Culture Indicated NO My Orders Orders - BHAKTI PANIAGUA MD Basic Metabolic Panel (03/06/18 20:30) Cbc With Automated Diff (03/06/18 20:30) Magnesium (03/06/18 20:30) Troponin I (03/06/18 20:30) Saline Lock/Iv-Start (03/06/18 20:30) Ekg Tracing (03/06/18 20:30) Monitor-Rhythm Ecg Trace Only (03/06/18 20:30) Chest Pa/Lat (2 View) (03/06/18 20:34) Orthostatic Vital Signs (Adult (03/06/18 20:35) Ns Iv 1000 Ml (Sodium Chloride 0.9%) (03/06/18 21:25) Lorazepam Injection (Ativan Injection) (03/06/18 21:30) Ua Culture If Indicated (03/06/18 21:59) Medications Given in ED Current Medications Medications Dose Ordered Sig/Ankita Route Start Time Stop Time Status Last Admin Dose Admin Lorazepam 0.5 mg ONCE ONCE IVP 03/06/18 21:30 03/06/18 21:32 DC 03/06/18 21:44 0.5 MG Sodium Chloride 1,000 ml @ 0 mls/hr Q0M ONCE IV 03/06/18 21:25 03/06/18 21:26 DC 03/06/18 21:43 0 MLS/HR Vital Signs/I&O 03/06/18 03/06/18 03/06/18 03/06/18 20:14 20:44 20:46 20:48 Temp 97.4 Pulse 65 58 61 68 Resp 18 B/P (MAP) 168/91 (116) 175/94 (121) 171/91 (117) 173/94 (120) Pulse Ox 98 O2 Delivery Room Air 03/06/18 22:53 Temp 97.4 Pulse 55 Resp 18 B/P (MAP) 153/83 (120) Pulse Ox 98 O2 Delivery Room Air 03/07/18 00:00 Intake Total 1000 ml Balance 1000 ml Capillary Refill : Less Than 3 Seconds Blood Pressure Mean: 120 Progress Note #1: Time: 21:40 Progress Note Workup was relatively unremarkable except for improving hyponatremia. Blood pressure is also improving. Patient states he is starting to feel flushed again. He would like to try some Ativan to see if that aborts the sensation of warmth and flushing. He is receiving a liter of IV normal saline to help treat the hyponatremia. Progress Note #2: Progress Note Ativan worked well to abort his symptoms. ECG Initial ECG Impression Date: Mar 06, 2018 Initial ECG Impression Time: 20:42 Initial ECG Rate: 61 Initial ECG Rhythm: Normal Sinus Initial ECG Impression: Normal Comment Normal sinus rhythm with no ST elevation or depression. No abnormal intervals. Left axis deviation by automated read. Diagnostic Imaging Diagonstic Imaging: Xray Plain Films/CT/US/NM/MRI: chest Comments Chest x-ray viewed by me and report reviewed. See report below: NAME: CHELSI FORDE [facility] REC#: [id number] PT STATUS: REG ER : 1955 PHYSICIAN: BHAKTI PANIAGUA MD ADMIT DATE: 03/06/18/ER Draft Date of Exam:03/06/18 CHEST PA/LAT (2 VIEW) INDICATION: Elevated blood pressure and weakness. Time of exam: 9:25 PM Correlation is made with prior chest from 01/16/2018. The heart size is normal. The pulmonary vascularity is unremarkable. The lungs are clear. No infiltrate, effusion or pneumothorax is detected. Impression: No acute cardiopulmonary process is detected. Dictated on workstation # [id number] Dict: 03/06/182112 Trans: 03/06/182113 [facility] [id number] Interpreted by: EYAL HERNANDEZ MD Departure Impression Primary Impression: Hyponatremia Additional Impressions: Hypertension Qualified Codes: I10 - Essential (primary) hypertension Anxiety Disposition: HOME, SELF-CARE Condition: Improved Departure-Patient Inst. Decision time for Depature: 22:15 Referrals: BRITTNY LOZANO MD (PCP/Family) Primary Care Physician Patient Instructions: Anxiety, Adult (DC), High Blood Pressure (DC), Hyponatremia Add. Discharge Instructions: Take your medications as prescribed. Drink plenty of clear liquids. Lightly salt your food for the next 2 days to help correct the low sodium. If feeling hot, flushed, or anxious, take your anxiety medication as prescribed. See Dr. Lozano as soon as possible. Return to care if symptoms are worsening. All discharge instructions reviewed with patient and/or family. Voiced understanding. Copy Copies To 1: BRITTNY LOZANO MD, JOSHUA T MD Mar 06, 2018 21:23
[2018-03-06] MEDS ORDERED: NS IV 1000 ML 1,000 ML IV ONE (21:25)
[2018-03-06] MEDS ORDERED: LORazepam INJ 2 MG/ML (ATIVAN) VIAL IVP ONE (21:30)
[2018-03-06 22:04] LABS: BILIRUBIN,URINE NEGATIVE (NEGATIVE); CLARITY,URINE CLEAR; COLOR,URINE YELLOW; GLUCOSE, URINE (UA) NEGATIVE (NEGATIVE); KETONES,URINE NEGATIVE (NEGATIVE); LEUKOCYTE ESTERASE ,URINE NEGATIVE (NEGATIVE); NITRITE,URINE NEGATIVE (NEGATIVE); PH,URINE 7 (5-9); PROTEIN,URINE NEGATIVE (NEGATIVE); UROBILINOGEN,URINE NORMAL (NORMAL)
[2018-03-06 22:12] LABS: BACTERIA,URINE NEGATIVE /HPF; WBC,URINE RARE /HPF
[2018-03-06 22:13] LABS: URINE OTHER FEW SPERM /HPF
[2018-03-06 22:53] VITALS: BP 153/83
== END 2018-03-06 22:53 | disposition home or self-care (01) ==
LOC: EDUNIT# 18:14 → ER 18:15
DX: I10 Essential (primary) hypertension (principal); E87.1 Hypo-osmolality and hyponatremia; F41.9 Anxiety disorder, unspecified; R53.1 Weakness; K21.9 Gastro-esophageal reflux disease without esophagitis; Z87.19 Personal history of other diseases of the digestive system; Z88.8 Allergy status to other drugs, medicaments and biological substances; Z87.891 Personal history of nicotine dependence; Z90.89 Acquired absence of other organs
CPT/HCPCS: 36415; 71046; 80048; 81000; 83735; 84484; 85025; 93005; 93041; 96361; 96374

== ENCOUNTER → 2018-03-16 | Outpatient (CLI) | payer BC ==
[2018-03-16 11:16] LABS: BASOPHILS % (AUTO) 0 % (0-10); EOSINOPHILS # (AUTO) 0.5 10^3/uL (0.0-0.3); EOSINOPHILS % (AUTO) 7 % (0-10); HEMATOCRIT 39 % (40-54); HEMOGLOBIN 14.1 G/DL (13.3-17.7); LYMPHOCYTES # (AUTO) 1.2 X 10^3 (1.0-4.0); LYMPHOCYTES % (AUTO) 16 % (12-44); MEAN CORPUSCULAR HEMOGLOBIN 31 PG (25-34); MEAN CORPUSCULAR HGB CONC 37 G/DL (32-36); MEAN CORPUSCULAR VOLUME 85 FL (80-99); MONOCYTES # (AUTO) 0.8 X 10^3 (0.0-1.0); MONOCYTES % (AUTO) 10 % (0-12); NEUTROPHILS # (AUTO) 5.3 X 10^3 (1.8-7.8); NEUTROPHILS % (AUTO) 67 % (42-75); PLATELET COUNT 289 10^3/uL (130-400); RED BLOOD COUNT 4.53 10^6/uL (4.35-5.85); RED CELL DISTRIBUTION WIDTH 13.5 % (10.0-14.5); WHITE BLOOD COUNT 7.9 10^3/uL (4.3-11.0)
[2018-03-16 11:25] LABS: ALANINE AMINOTRANSFERASE 23 U/L (0-55); ALBUMIN 4.4 GM/DL (3.2-4.5); ALKALINE PHOSPHATASE 57 U/L (40-136); BILIRUBIN,TOTAL 1.4 MG/DL (0.1-1.0); BUN/CREATININE RATIO 14; CALCIUM 10.2 MG/DL (8.5-10.1); CARBON DIOXIDE 25 MMOL/L (21-32); CHLORIDE 99 MMOL/L (98-107); CREATININE SERUM 0.79 MG/DL (0.60-1.30); GFR ESTIMATED > 60; GLUCOSE 100 MG/DL (70-105); MAGNESIUM 1.6 MG/DL (1.8-2.4); SODIUM 133 MMOL/L (135-145)
[2018-03-16 11:46] LABS: FREE T4 (FREE THYROXINE) 1.21 NG/DL (0.70-1.48)
[2018-03-19 07:59] LABS: HEPATITIS C ANTIBODY C Non-Reactive (Non-Reactive)
== END ==
LOC: LAB 10:36
PROVIDERS: ATTEND Internal Medicine
DX: Z12.5 Encounter for screening for malignant neoplasm of prostate (principal); I10 Essential (primary) hypertension; R53.83 Other fatigue; Z72.89 Other problems related to lifestyle; A21 Tularemia
CPT/HCPCS: 36415; 80053; 83735; 84153; 84403; 84439; 84443; 85025; 86668; 86803

== ENCOUNTER 2018-04-10 16:58 | Emergency (ER) | payer BC ==
[~2018-04-10] VITALS: Ht 182.9 cm; Wt 83.9 kg
--- OUTSIDE RECORDS SUMMARY | 2018-04-10 17:06 | XMS REPORT | Continuity of Care Document ---
Author Author [facility] Organization [facility] Address Unknown Phone Unavailable Allergies Active Description Code Type Severity Reaction Onset Reported/Identified Relationship to Patient Clinical Status Yes SHRAVAN INHIBITORS UNKNOWN RESPIRATORY - COUGHI Yes DEMEROL UNKNOWN OTHER Yes DEXTROMETHORPHAN HBR SEVERE OTHER Yes GABAPENTIN UNKNOWN DIZZINESS Yes GABAPENTIN MODERATE OTHER Yes NKANo Known Allergies NKA Miscellaneous Allergy Unknown N/A 12/10/2005 Yes meperidine [id number] Drug Allergy Unknown N/A 10/31/2014 Yes dexamethasone [id number] Drug Allergy Unknown HTN, POSSIBLE S 10/18/2017 [...] MARY Weinstein Ot E888.9 12/03/2014 MELCHOR ALDANA METALLURGICAL ENGINEERING TECHNICIAN Ot 557.1 12/03/2014 MELCHOR ALDANA METALLURGICAL ENGINEERING TECHNICIAN Ot 562.10 12/03/2014 MELCHOR ALDANA METALLURGICAL ENGINEERING TECHNICIAN Ot 787.3 12/03/2014 MELCHOR ALDANA METALLURGICAL ENGINEERING TECHNICIAN Ot 787.91 12/03/2014 MELCHOR ALDANA METALLURGICAL ENGINEERING TECHNICIAN Ot 789.00 12/16/2014 Ot 401.9 12/16/2014 Ot 401.9 12/16/2014 Ot 789.00 12/16/2014 KEISHA ARANDA, MARY Weinstein Ot 401.9 12/16/2014 KEISHA ARANDA, MARY Weinstein Ot 805.4 12/16/2014 KEISHA ARANDA, MARY Weinstein Ot E000.8 12/16/2014 KEISHA ARANDA, MARY Weinstein Ot E888.9 12/16/2014 MELCHOR ALDANA METALLURGICAL ENGINEERING TECHNICIAN Ot 557.1 12/16/2014 MELCHOR ALDANA METALLURGICAL ENGINEERING TECHNICIAN Ot 562.10 12/16/2014 MELCHOR ALDANA METALLURGICAL ENGINEERING TECHNICIAN Ot 787.3 12/16/2014 MELCHOR ALDANA METALLURGICAL ENGINEERING TECHNICIAN Ot 787.91 12/16/2014 MELCHOR ALDANA METALLURGICAL ENGINEERING TECHNICIAN Ot 789.00 12/16/2014 KEISHA ARANDA, MARY Weinstein Ot 805.4 12/16/2014 KEISHA ARANDA, MARY Weinstein Ot E000.8 12/16/2014 KEISHA ARANDA, MARY Weinstein Ot E888.9 12/16/2014 KEISHA ARANDA, MARY Weinstein Ot 805.4 12/16/2014 KEISHA ARANDA, MARY Weinstein Ot E000.8 12/16/2014 MARY VALDES MD Ot E888.9 12/16/2014 MELCHOR ALDANA METALLURGICAL ENGINEERING TECHNICIAN Ot 557.1 12/16/2014 ALDANAMELCHOR J METALLURGICAL ENGINEERING TECHNICIAN Ot 562.10 12/16/2014 ALDANAMELCHOR J METALLURGICAL ENGINEERING TECHNICIAN Ot 787.3 12/16/2014 ALDANAHORTENCIALY J METALLURGICAL ENGINEERING TECHNICIAN Ot 787.91 12/16/2014 ALDANAMELCHOR J METALLURGICAL ENGINEERING TECHNICIAN Ot 789.00 02/05/2015 Ot 401.9 02/05/2015 Ot 401.9 02/05/2015 Ot 789.00 02/05/2015 KEISHA ARANDA, MARY Weinstein Ot 401.9 02/05/2015 KEISHA ARANDA, MARY Weinstein Ot 805.4 02/05/2015 KEISHA ARANDA, MARY Weinstein Ot E000.8 02/05/2015 KEISHA ARANDA, MARY Weinstein Ot E888.9 02/05/2015 ALDANAMELCHOR METALLURGICAL ENGINEERING TECHNICIAN Ot 557.1 02/05/2015 ALDANAMELCHOR METALLURGICAL ENGINEERING TECHNICIAN Ot 562.10 02/05/2015 ALDANAMELCHOR METALLURGICAL ENGINEERING TECHNICIAN Ot 787.3 02/05/2015 ALDANAMELCHOR J METALLURGICAL ENGINEERING TECHNICIAN Ot 787.91 02/05/2015 ALDANAMELCHOR J METALLURGICAL ENGINEERING TECHNICIAN Ot 789.00 02/05/2015 Ot 733.13 02/05/2015 APPLE ARANDA, IJEOMA Dickerson Ot 733.13 02/05/2015 APPLE ARANDA, IJEOMA Dickerson Ot V72.63 02/05/2015 IJEOMA CHIU MD Ot V74.8 02/05/2015 ALDANAMELCHOR METALLURGICAL ENGINEERING TECHNICIAN Ot 557.1 02/05/2015 ALDANAMELCHOR J METALLURGICAL ENGINEERING TECHNICIAN Ot 562.10 02/05/2015 ALDANAMELCHOR J METALLURGICAL ENGINEERING TECHNICIAN Ot 787.3 02/05/2015 ALDANAMELCHOR J METALLURGICAL ENGINEERING TECHNICIAN Ot 787.91 02/05/2015 ALDANAHORTENCIALY J METALLURGICAL ENGINEERING TECHNICIAN Ot 789.00 02/05/2015 KEISHA ARANDA, MARY Weinstein Ot 805.4 02/05/2015 KEISHA ARANDA, MARY Weinstein Ot E000.8 02/05/2015 KEISHA ARANDA, MARY Weinstein Ot E888.9 02/09/2015 KEISHA ARANDA, MARY Weinstein Ot 805.4 02/09/2015 KEISHA ARANDA, MARY Weinstein Ot E000.8 02/09/2015 KEISHA ARANDA, MARY Weinstein Ot E888.9 02/09/2015 MELCHOR ALDANA METALLURGICAL ENGINEERING TECHNICIAN Ot 557.1 02/09/2015 MELCHOR ALDANA METALLURGICAL ENGINEERING TECHNICIAN Ot 562.10 02/09/2015 ALDANAMELCHOR METALLURGICAL ENGINEERING TECHNICIAN Ot 787.3 02/09/2015 MELCHOR ALDANA METALLURGICAL ENGINEERING TECHNICIAN Ot 787.91 02/09/2015 MELCHOR ALDANA METALLURGICAL ENGINEERING TECHNICIAN Ot 789.00 02/09/2015 IJEOMA CHIU MD Ot [...] MD Ot E888.9 03/03/2015 MELCHOR ALDANA Tuan METALLURGICAL ENGINEERING TECHNICIAN Ot 557.1 03/03/2015 MELCHOR ALDANA Tuan METALLURGICAL ENGINEERING TECHNICIAN Ot 562.10 03/03/2015 MELCHOR ALDANA Tuan METALLURGICAL ENGINEERING TECHNICIAN Ot 787.3 03/03/2015 MELCHOR ALDANA METALLURGICAL ENGINEERING TECHNICIAN Ot 787.91 03/03/2015 MELCHOR ALDANA METALLURGICAL ENGINEERING TECHNICIAN Ot 789.00 03/03/2015 Ot 733.13 03/03/2015 IJEOMA [...] Js Ot E888.9 03/16/2015 ALDANA, MELCHOR Dickerson METALLURGICAL ENGINEERING TECHNICIAN Ot 557.1 03/16/2015 ALDANA, MELCHOR Dickerson METALLURGICAL ENGINEERING TECHNICIAN Ot 562.10 03/16/2015 ALDANA, MELCHOR J METALLURGICAL ENGINEERING TECHNICIAN Ot 787.3 03/16/2015 ALDANA, MELCHOR J METALLURGICAL ENGINEERING TECHNICIAN Ot 787.91 03/16/2015 ALDANA, MELCHOR J METALLURGICAL ENGINEERING TECHNICIAN Ot 789.00 03/16/2015 Ot 733.13 03/16/2015 IJEOMA [...] VALDES MD Ot E888.9 09/08/2015 MELCHOR ALDANA METALLURGICAL ENGINEERING TECHNICIAN Ot 557.1 09/08/2015 ALDANAMELCHOR METALLURGICAL ENGINEERING TECHNICIAN Ot 562.10 09/08/2015 ALDANAMELCHOR METALLURGICAL ENGINEERING TECHNICIAN Ot 787.3 09/08/2015 ALDANAHORTENCIALY J METALLURGICAL ENGINEERING TECHNICIAN Ot 787.91 09/08/2015 ALDANAMELCHOR METALLURGICAL ENGINEERING TECHNICIAN Ot 789.00 09/08/2015 Ot 733.13 09/08/2015 IJEOMA CHIU MD Ot 733.13 09/08/2015 IJEOMA CHIU MD Ot V72.63 09/08/2015 IJEOMA CHIU MD Ot V74.8 09/08/2015 IJEOMA CHIU MD Ot Z01.812 09/08/2015 MARY VALDES MD Ot 562.10 09/08/2015 MARY VALDES MD Ot 780.60 09/08/2015 KEISHA ARANDA, MARY Weinstein Ot 805.4 09/08/2015 MARY VALDES MD Ot E000.8 09/08/2015 MARY VALDES MD Ot E888.9 09/08/2015 MELCHOR ALDANA METALLURGICAL ENGINEERING TECHNICIAN Ot 557.1 09/08/2015 ALDANAMELCHOR METALLURGICAL ENGINEERING TECHNICIAN Ot 562.10 09/08/2015 ALDANAMELCHOR METALLURGICAL ENGINEERING TECHNICIAN Ot 787.3 09/08/2015 ALDANAMELCHOR METALLURGICAL ENGINEERING TECHNICIAN Ot 787.91 09/08/2015 ALDANAMELCHOR METALLURGICAL ENGINEERING TECHNICIAN Ot 789.00 09/08/2015 Ot 733.13 09/08/2015 IJEOMA [...] MD Ot E888.9 FALL NOS 11/02/2015 MELCHOR ADLANA METALLURGICAL ENGINEERING TECHNICIAN Ot 557.1 CHR VASC INSUFF INTEST 11/02/2015 MELCHOR ALDANA METALLURGICAL ENGINEERING TECHNICIAN Ot 562.10 DIVERTICULOSIS COLON (W/O MENT OF HEMORR 11/02/2015 MELCHOR ALDANA METALLURGICAL ENGINEERING TECHNICIAN Ot 787.3 FLATUL/ERUCTAT/GAS PAIN 11/02/2015 MELCHOR ALDANA METALLURGICAL ENGINEERING TECHNICIAN Ot 787.91 DIARRHEA 11/02/2015 MELCHOR ALDANA METALLURGICAL ENGINEERING TECHNICIAN Ot 789.00 ABDOMINAL PAIN, UNSPECIFIED SITE 11/02/2015 [...] Ot E888.9 FALL NOS 11/02/2015 MELCHOR ALDANA METALLURGICAL ENGINEERING TECHNICIAN Ot 557.1 CHR VASC INSUFF INTEST 11/02/2015 MELCHOR ALDANA METALLURGICAL ENGINEERING TECHNICIAN Ot 562.10 DIVERTICULOSIS COLON (W/O MENT OF HEMORR 11/02/2015 MELCHOR ALDANA METALLURGICAL ENGINEERING TECHNICIAN Ot 787.3 FLATUL/ERUCTAT/GAS PAIN 11/02/2015 MELCHOR ALDANA METALLURGICAL ENGINEERING TECHNICIAN Ot 787.91 DIARRHEA 11/02/2015 MELCHOR ALDANA METALLURGICAL ENGINEERING TECHNICIAN Ot 789.00 ABDOMINAL PAIN, UNSPECIFIED SITE 11/02/2015 [...] Ot E888.9 FALL NOS 11/25/2015 MELCHOR ALDANA METALLURGICAL ENGINEERING TECHNICIAN Ot 557.1 CHR VASC INSUFF INTEST 11/25/2015 MELCHOR ALDANA METALLURGICAL ENGINEERING TECHNICIAN Ot 562.10 DIVERTICULOSIS COLON (W/O MENT OF HEMORR 11/25/2015 MELCHOR ALDANA METALLURGICAL ENGINEERING TECHNICIAN Ot 787.3 FLATUL/ERUCTAT/GAS PAIN 11/25/2015 MELCHOR ALDANA METALLURGICAL ENGINEERING TECHNICIAN Ot 787.91 DIARRHEA 11/25/2015 MELCHOR ALDANA METALLURGICAL ENGINEERING TECHNICIAN Ot 789.00 ABDOMINAL PAIN, UNSPECIFIED SITE 11/25/2015 [...] Ot 789.00 ABDOMINAL PAIN, UNSPECIFIED SITE 12/31/2015 KESIHA ARANDA, MARY Weinstein Ot 401.9 HYPERTENSION NOS 12/31/2015 KEISHA ARANDA, MARY Weinstein Ot 805.4 FX LUMBAR VERTEBRA-CLOSE 12/31/2015 KEISHA ARANDA, MARY L Ot E000.8 OTHER EXTERNAL CAUSE STATUS 12/31/2015 KEISHA ARANDA, MARY Weinstein Ot E888.9 FALL NOS 12/31/2015 MELCHOR ALDANA METALLURGICAL ENGINEERING TECHNICIAN Ot 557.1 CHR VASC INSUFF INTEST 12/31/2015 MELCHOR ALDANA METALLURGICAL ENGINEERING TECHNICIAN Ot 562.10 DIVERTICULOSIS COLON (W/O MENT OF HEMORR 12/31/2015 MELCHOR ALDANA METALLURGICAL ENGINEERING TECHNICIAN Ot 787.3 FLATUL/ERUCTAT/GAS PAIN 12/31/2015 MELCHOR ALDANA METALLURGICAL ENGINEERING TECHNICIAN Ot 787.91 DIARRHEA 12/31/2015 MELCHOR ALDANA METALLURGICAL ENGINEERING TECHNICIAN Ot 789.00 ABDOMINAL PAIN, UNSPECIFIED SITE 12/31/2015 [...] Ot E888.9 FALL NOS 04/01/2016 MELCHOR ALDANA METALLURGICAL ENGINEERING TECHNICIAN Ot 557.1 CHR VASC INSUFF INTEST 04/01/2016 MELCHOR ALDANA METALLURGICAL ENGINEERING TECHNICIAN Ot 562.10 DIVERTICULOSIS COLON (W/O MENT OF HEMORR 04/01/2016 MELCHOR ALDANA METALLURGICAL ENGINEERING TECHNICIAN Ot 787.3 FLATUL/ERUCTAT/GAS PAIN 04/01/2016 MELCHOR ALDANA METALLURGICAL ENGINEERING TECHNICIAN Ot 787.91 DIARRHEA 04/01/2016 MELCHOR ALDANA METALLURGICAL ENGINEERING TECHNICIAN Ot 789.00 ABDOMINAL PAIN, UNSPECIFIED SITE 04/01/2016 [...] Ot E888.9 FALL NOS 09/06/2016 MELCHOR ALDANA METALLURGICAL ENGINEERING TECHNICIAN Ot 557.1 CHR VASC INSUFF INTEST 09/06/2016 MELCHOR ALDANA METALLURGICAL ENGINEERING TECHNICIAN Ot 562.10 DIVERTICULOSIS COLON (W/O MENT OF HEMORR 09/06/2016 MELCHOR ALDANA METALLURGICAL ENGINEERING TECHNICIAN Ot 787.3 FLATUL/ERUCTAT/GAS PAIN 09/06/2016 MELCHOR ALDANA METALLURGICAL ENGINEERING TECHNICIAN Ot 787.91 DIARRHEA 09/06/2016 MELCHOR ALDANA METALLURGICAL ENGINEERING TECHNICIAN Ot 789.00 ABDOMINAL PAIN, UNSPECIFIED SITE 09/06/2016 [...] W 272.4 OTHER AND UNSPECIFIED HYPERLIPIDEMIA 06/13/2017 KIESHA, MARY W 401.0 MALIGNANT ESSENTIAL HYPERTENSION 06/13/2017 [...] Ot 787.3 FLATUL/ERUCTAT/GAS PAIN 08/21/2017 MELCHOR ALDANA METALLURGICAL ENGINEERING TECHNICIAN Ot 787.91 DIARRHEA 08/21/2017 MELCHOR ALDANA METALLURGICAL ENGINEERING TECHNICIAN Ot 789.00 ABDOMINAL PAIN, UNSPECIFIED SITE 08/21/2017 [...] (W/O MENT OF HEMORR 08/23/2017 ALDANAMARILUMELCHOR J METALLURGICAL ENGINEERING TECHNICIAN Ot 787.3 FLATUL/ERUCTAT/GAS PAIN 08/23/2017 MELCHOR ALDANA METALLURGICAL ENGINEERING TECHNICIAN Ot 787.91 DIARRHEA 08/23/2017 MARILU ALDANAFRANCISCO JAVIER [...] ABSENCE OF OTHER ORGANS 12/23/2017 JOHNNIE DO, GABRIEAL K Ot F41.9 ANXIETY DISORDER, UNSPECIFIED 12/23/2017 [...] OF OTHER SPECIFIED PART 01/03/2018 RYAN VAUGHAN CONTINUOUS IMPROVEMENT LEAD Ot I10 ESSENTIAL (PRIMARY) HYPERTENSION 01/03/2018 RYAN VAUGHAN CONTINUOUS IMPROVEMENT LEAD Ot R61 GENERALIZED HYPERHIDROSIS 01/06/2018 MAGNO FOLEY APRN Ot I10 ESSENTIAL (PRIMARY) HYPERTENSION 01/06/2018 MAGNO FOLEY APRN Ot K21.9 GASTRO-ESOPHAGEAL REFLUX DISEASE WITHOUT 01/06/2018 MAGNO FOLEY APRN Ot Z87.19 PERSONAL HISTORY OF OTHER DISEASES OF 01/06/2018 MAGNO FOLEY APRN Ot Z88.8 ALLERGY STATUS TO OTH DRUG/MEDS/BIOL SUB 01/06/2018 MAGNO FOLEY APRN Ot 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 OF OTHER ORGANS 01/08/2018 MAGNO FOLEY CONTINUOUS IMPROVEMENT LEAD Ot I10 ESSENTIAL (PRIMARY) HYPERTENSION 01/08/2018 MAGNO FOLEY APRN Ot K21.9 GASTRO-ESOPHAGEAL REFLUX DISEASE WITHOUT 01/08/2018 MAGNO FOLEY APRN Ot Z87.19 PERSONAL HISTORY OF OTHER DISEASES OF TH 01/08/2018 MAGNO FOLEY APRN Ot Z88.8 ALLERGY STATUS TO OTH DRUG/MEDS/BIOL SUB 01/08/2018 MAGNO FOLEY CONTINUOUS IMPROVEMENT LEAD Ot 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 OF OTHER ORGANS [...] I10 ESSENTIAL (PRIMARY) HYPERTENSION 02/06/2018 NELI MCBRIDE METALLURGICAL ENGINEERING TECHNICIAN Ot I10 ESSENTIAL (PRIMARY) HYPERTENSION 02/07/2018 KEISHA ARANDA, MARY Weinstein Ot 805.4 FX LUMBAR VERTEBRA-CLOSE 02/07/2018 KEISHA ARANDA, MARY Weinstein Ot E000.8 OTHER EXTERNAL CAUSE STATUS 02/07/2018 KEISHA ARANDA, MARY Weinstein Ot E888.9 FALL NOS 02/07/2018 MELCHOR ALDANA METALLURGICAL ENGINEERING TECHNICIAN Ot 557.1 CHR VASC INSUFF INTEST 02/07/2018 MELCHOR ALDANA METALLURGICAL ENGINEERING TECHNICIAN Ot 562.10 DIVERTICULOSIS COLON (W/O MENT OF HEMORR 02/07/2018 MELCHOR ALDANA METALLURGICAL ENGINEERING TECHNICIAN Ot 787.3 FLATUL/ERUCTAT/GAS PAIN 02/07/2018 MELCHOR ALDANA Tuan METALLURGICAL ENGINEERING TECHNICIAN Ot 787.91 DIARRHEA 02/07/2018 MELCHOR ALDANA METALLURGICAL ENGINEERING TECHNICIAN Ot 789.00 ABDOMINAL PAIN, UNSPECIFIED SITE 02/07/2018 [...] TREATMENT NOT CARRIED OUT 02/07/2018 RYAN VAUGHAN CONTINUOUS IMPROVEMENT LEAD Ot I10 ESSENTIAL (PRIMARY) HYPERTENSION 02/07/2018 RYAN VAUGHAN CONTINUOUS IMPROVEMENT LEAD Ot R61 GENERALIZED HYPERHIDROSIS 02/07/2018 NELI MCBRIDE METALLURGICAL ENGINEERING TECHNICIAN Ot I10 ESSENTIAL (PRIMARY) HYPERTENSION 02/07/2018 MARY VALDES MD Ot 805.4 FX LUMBAR VERTEBRA-CLOSE 02/07/2018 MARY VALDES MD Ot E000.8 OTHER EXTERNAL CAUSE STATUS 02/07/2018 MARY VALDES MD Ot E888.9 FALL NOS 02/07/2018 MELCHOR ALDANA METALLURGICAL ENGINEERING TECHNICIAN Ot 557.1 CHR VASC INSUFF INTEST 02/07/2018 MELCHOR ALDANA METALLURGICAL ENGINEERING TECHNICIAN Ot 562.10 DIVERTICULOSIS COLON (W/O MENT OF HEMORR 02/07/2018 MELCHOR ALDANA METALLURGICAL ENGINEERING TECHNICIAN Ot 787.3 FLATUL/ERUCTAT/GAS PAIN 02/07/2018 MELCHOR ALDANA METALLURGICAL ENGINEERING TECHNICIAN Ot 787.91 DIARRHEA 02/07/2018 MELCHOR ALDANA METALLURGICAL ENGINEERING TECHNICIAN Ot 789.00 ABDOMINAL PAIN, UNSPECIFIED SITE 02/07/2018 [...] TREATMENT NOT CARRIED OUT 02/07/2018 RYAN VAUGHAN CONTINUOUS IMPROVEMENT LEAD Ot I10 ESSENTIAL (PRIMARY) HYPERTENSION 02/07/2018 RYAN VAUGHAN CONTINUOUS IMPROVEMENT LEAD Ot R61 GENERALIZED HYPERHIDROSIS 02/07/2018 BAIMA, NELI L METALLURGICAL ENGINEERING TECHNICIAN Ot I10 ESSENTIAL (PRIMARY) HYPERTENSION 02/08/2018 GINGER ARANDA FACC, ALI FACP CCDS Ot I10 ESSENTIAL (PRIMARY) HYPERTENSION 02/08/2018 GINGER ARANDA FACC, ALI FACP CCDS Ot R00.2 PALPITATIONS 02/08/2018 GINGER ARANDA FACC, ALI FACP CCDS Ot R06.02 SHORTNESS OF BREATH 02/09/2018 GINGER ARANDA FACC, ALI FACP CCDS Ot I10 ESSENTIAL (PRIMARY) HYPERTENSION 02/09/2018 GINGER ARANDA [facility], ALI FACP CCDS Ot R00.2 PALPITATIONS 02/09/2018 GINGER ARANDA [facility], ALI FACP CCDS Ot R06.02 SHORTNESS OF BREATH 02/15/2018 FREDDIE, DONALD L CONTINUOUS IMPROVEMENT LEAD Ot E78.5 HYPERLIPIDEMIA, UNSPECIFIED 02/15/2018 FREDDIE, DONALD L CONTINUOUS IMPROVEMENT LEAD Ot F41.1 GENERALIZED ANXIETY DISORDER 02/15/2018 FREDDIE, DONALD L CONTINUOUS IMPROVEMENT LEAD Ot I10 ESSENTIAL (PRIMARY) HYPERTENSION 02/15/2018 FREDDIE, DONALD L CONTINUOUS IMPROVEMENT LEAD Ot M79.1 MYALGIA 02/15/2018 FREDDIE, DONALD L CONTINUOUS IMPROVEMENT LEAD Ot R42 DIZZINESS AND GIDDINESS 02/15/2018 FREDDIE, DONALD L CONTINUOUS IMPROVEMENT LEAD Ot R53.83 OTHER FATIGUE 02/21/2018 GINGER ARANDA [facility], ALI FACP CCDS Ot I10 ESSENTIAL (PRIMARY) HYPERTENSION 02/21/2018 GINGER ARANDA [facility], ALI FACP CCDS Ot R00.2 PALPITATIONS 02/21/2018 GINGER BARTH, ALI FACP CCDS Ot R06.02 SHORTNESS OF BREATH 02/21/2018 GINGER ARANDA [facility], ALI FACP CCDS Ot I10 ESSENTIAL (PRIMARY) HYPERTENSION 02/21/2018 GINGER ARANDA FACC, ALI FACP CCDS Ot R00.2 PALPITATIONS 02/21/2018 GINGER ARANDA FACC, ALI FACP CCDS Ot R06.02 SHORTNESS OF BREATH 02/21/2018 FREDDIE, DONALD L CONTINUOUS IMPROVEMENT LEAD Ot E78.5 HYPERLIPIDEMIA, UNSPECIFIED 02/21/2018 FREDDIE, DONALD L CONTINUOUS IMPROVEMENT LEAD Ot F41.1 GENERALIZED ANXIETY DISORDER 02/21/2018 FREDDIE, DONALD L CONTINUOUS IMPROVEMENT LEAD Ot I10 ESSENTIAL (PRIMARY) HYPERTENSION 02/21/2018 FREDDIE, DONALD L CONTINUOUS IMPROVEMENT LEAD Ot M79.1 MYALGIA 02/21/2018 FREDDIEDONALD CID CONTINUOUS IMPROVEMENT LEAD Ot R42 DIZZINESS AND GIDDINESS 02/21/2018 FREDDIEDONALD CID CONTINUOUS IMPROVEMENT LEAD Ot R53.83 OTHER FATIGUE 02/28/2018 KEISHA ARANDA, MARY Weinstein Ot 805.4 FX LUMBAR VERTEBRA-CLOSE 02/28/2018 KEISHA ARANDA, MARY Weinstein Ot E000.8 OTHER EXTERNAL CAUSE STATUS 02/28/2018 KEISHA ARANDA, MARY Weinstein Ot E888.9 FALL NOS 02/28/2018 MELCHOR ALDANA METALLURGICAL ENGINEERING TECHNICIAN Ot 557.1 CHR VASC INSUFF INTEST 02/28/2018 MELCHOR ALDANA METALLURGICAL ENGINEERING TECHNICIAN Ot 562.10 DIVERTICULOSIS COLON (W/O MENT OF HEMORR 02/28/2018 MELCHOR ALDANA METALLURGICAL ENGINEERING TECHNICIAN Ot 787.3 FLATUL/ERUCTAT/GAS PAIN 02/28/2018 MELCHOR ALDANA METALLURGICAL ENGINEERING TECHNICIAN Ot 787.91 DIARRHEA 02/28/2018 MELCHOR ALDANA METALLURGICAL ENGINEERING TECHNICIAN Ot 789.00 ABDOMINAL PAIN, UNSPECIFIED SITE 02/28/2018 [...] CARRIED OUT 02/28/2018 RYAN VAUGHAN Mary Beth CONTINUOUS IMPROVEMENT LEAD Ot I10 ESSENTIAL (PRIMARY) HYPERTENSION 02/28/2018 MELVI VAUGHANLUCAS Clinton CONTINUOUS IMPROVEMENT LEAD Ot R61 GENERALIZED HYPERHIDROSIS 02/28/2018 NELI MCBRIDE METALLURGICAL ENGINEERING TECHNICIAN Ot I10 ESSENTIAL (PRIMARY) HYPERTENSION 02/28/2018 GINGER ARANDA FACC, ALI FACP CCDS Ot I10 ESSENTIAL (PRIMARY) HYPERTENSION 02/28/2018 GINGER ARANDA FACC, ALI FACP CCDS Ot R00.2 PALPITATIONS 02/28/2018 GINGER ARANDA FACC, ALI FACP CCDS Ot R06.02 SHORTNESS OF BREATH 02/28/2018 GINGER RAANDA FACC, ALI FACP CCDS Ot I10 ESSENTIAL (PRIMARY) HYPERTENSION 02/28/2018 GINGER ARANDA FACC, ALI FACP CCDS Ot R00.2 PALPITATIONS 02/28/2018 GINGER ARANDA FACC, ALI FACP CCDS Ot R06.02 SHORTNESS OF BREATH 02/28/2018 FREDDIE, DONALD L CONTINUOUS IMPROVEMENT LEAD Ot E78.5 HYPERLIPIDEMIA, UNSPECIFIED 02/28/2018 FREDDIE, DONALD L CONTINUOUS IMPROVEMENT LEAD Ot F41.1 GENERALIZED ANXIETY DISORDER 02/28/2018 FREDDIE, DONALD L CONTINUOUS IMPROVEMENT LEAD Ot I10 ESSENTIAL (PRIMARY) HYPERTENSION 02/28/2018 FREDDIE, DONALD L CONTINUOUS IMPROVEMENT LEAD Ot M79.1 MYALGIA 02/28/2018 FREDDIE, DONALD L CONTINUOUS IMPROVEMENT LEAD Ot R42 DIZZINESS AND GIDDINESS 02/28/2018 FREDDIE, DONALD L CONTINUOUS IMPROVEMENT LEAD Ot R53.83 OTHER FATIGUE 03/05/2018 MARTA ARANDA, BRITTNY C Ot R53.83 OTHER FATIGUE 03/05/2018 KEISHA ARANDA, MARY Weinstein Ot 805.4 FX LUMBAR VERTEBRA-CLOSE 03/05/2018 KEISHA ARANDA, MARY Weinstein Ot E000.8 OTHER EXTERNAL CAUSE STATUS 03/05/2018 KEISHA ARANDA, MARY Weinstein Ot E888.9 FALL NOS 03/05/2018 MELCHOR ALDANA METALLURGICAL ENGINEERING TECHNICIAN Ot 557.1 CHR VASC INSUFF INTEST 03/05/2018 MELCHOR ALDANA METALLURGICAL ENGINEERING TECHNICIAN Ot 562.10 DIVERTICULOSIS COLON (W/O MENT OF HEMORR 03/05/2018 MELCHOR ALDANA METALLURGICAL ENGINEERING TECHNICIAN Ot 787.3 FLATUL/ERUCTAT/GAS PAIN 03/05/2018 MELCHOR ALDANA METALLURGICAL ENGINEERING TECHNICIAN Ot 787.91 DIARRHEA 03/05/2018 MELCHOR ALDANA METALLURGICAL ENGINEERING TECHNICIAN Ot 789.00 ABDOMINAL PAIN, UNSPECIFIED SITE 03/05/2018 [...] TREATMENT NOT CARRIED OUT 03/05/2018 RYAN VAUGHAN CONTINUOUS IMPROVEMENT LEAD Ot I10 ESSENTIAL (PRIMARY) HYPERTENSION 03/05/2018 RYAN VAUGHAN CONTINUOUS IMPROVEMENT LEAD Ot R61 GENERALIZED HYPERHIDROSIS 03/05/2018 NELI MCBRIDE METALLURGICAL ENGINEERING TECHNICIAN Ot I10 ESSENTIAL (PRIMARY) HYPERTENSION 03/05/2018 GINGER ARANDA FACC, ALI FACP CCDS Ot I10 ESSENTIAL (PRIMARY) HYPERTENSION 03/05/2018 GINGER ARANDA [facility], ALI FACP CCDS Ot R00.2 PALPITATIONS 03/05/2018 GINGER ARANDA FAC, ALI FACP CCDS Ot R06.02 SHORTNESS OF BREATH 03/05/2018 GINGER ARANDA [facility], ALI FACP CCDS Ot I10 ESSENTIAL (PRIMARY) HYPERTENSION 03/05/2018 GINGER ARANDA [facility], ALI FACP CCDS Ot R00.2 PALPITATIONS 03/05/2018 GINGER ARANDA [facility], ALI FACP CCDS Ot R06.02 SHORTNESS OF BREATH 03/05/2018 FREDDIE, DONALD L CONTINUOUS IMPROVEMENT LEAD Ot E78.5 HYPERLIPIDEMIA, UNSPECIFIED 03/05/2018 FREDDIE, DONALD L CONTINUOUS IMPROVEMENT LEAD Ot F41.1 GENERALIZED ANXIETY DISORDER 03/05/2018 FREDDIE, DONALD L CONTINUOUS IMPROVEMENT LEAD Ot I10 ESSENTIAL (PRIMARY) HYPERTENSION 03/05/2018 FREDDIE, DONALD L CONTINUOUS IMPROVEMENT LEAD Ot M79.1 MYALGIA 03/05/2018 FREDDIE, DONALD L CONTINUOUS IMPROVEMENT LEAD Ot R42 DIZZINESS AND GIDDINESS 03/05/2018 FREDDIE, DONALD L CONTINUOUS IMPROVEMENT LEAD Ot R53.83 OTHER FATIGUE 03/05/2018 MARTA ARANDA, BRITTNY C Ot R53.83 OTHER FATIGUE 03/06/2018 BHAKTI PANIAGUA MD Ot E83.42 HYPOMAGNESEMIA 03/06/2018 BHAKTI PANIAGUA MD Ot E87.1 HYPO-OSMOLALITY AND HYPONATREMIA 03/06/2018 BHAKTI PANIAGUA MD Ot F41.9 ANXIETY DISORDER, UNSPECIFIED 03/06/2018 BHAKTI PANIAGUA MD Ot I10 ESSENTIAL (PRIMARY) HYPERTENSION 03/06/2018 BHAKTI PANIAGUA MD Ot K21.9 GASTRO-ESOPHAGEAL REFLUX DISEASE WITHOUT 03/06/2018 BHAKTI PANIAGUA MD Ot R00.2 PALPITATIONS 03/06/2018 BHAKTI PANIAGUA MD Ot Z87.19 PERSONAL HISTORY OF OTHER DISEASES OF TH 03/06/2018 BHAKTI PANIAGUA MD Ot Z87.891 PERSONAL HISTORY OF NICOTINE DEPENDENCE 03/06/2018 BHAKTI PANIAGUA MD Ot Z88.8 ALLERGY STATUS TO OTH DRUG/MEDS/BIOL SUB 03/06/2018 ARCELIA ARANDA, BHAKTI Chavis Ot 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 OF OTHER ORGANS 03/06/2018 KEISHA ARANDA, MARY Weinstein Ot 805.4 FX LUMBAR VERTEBRA-CLOSE 03/06/2018 KEISHA ARANDA, MARY Weinstein Ot E000.8 OTHER EXTERNAL CAUSE STATUS 03/06/2018 KEISHA ARANDA, MARY Weinstein Ot E888.9 FALL NOS 03/06/2018 MELCHOR ALDANA METALLURGICAL ENGINEERING TECHNICIAN Ot 557.1 CHR VASC INSUFF INTEST 03/06/2018 MELCHOR ALDANA METALLURGICAL ENGINEERING TECHNICIAN Ot 562.10 DIVERTICULOSIS COLON (W/O MENT OF HEMORR 03/06/2018 MELCHOR ALDANA METALLURGICAL ENGINEERING TECHNICIAN Ot 787.3 FLATUL/ERUCTAT/GAS PAIN 03/06/2018 MELCHOR ALDANA METALLURGICAL ENGINEERING TECHNICIAN Ot 787.91 DIARRHEA 03/06/2018 MELCHOR ALDANAP Ot 789.00 ABDOMINAL PAIN, UNSPECIFIED SITE 03/06/2018 Ot 733.13 PATHOLOGIC FRACTURE, VERTEBRAE 03/06/2018 APPLE ARANDA, IJEOMA Dickerson Ot 733.13 PATHOLOGIC FRACTURE, VERTEBRAE 03/06/2018 APPLE ARANDA, IJEOMA Dickerson Ot V72.63 PRE-PROCEDURAL LABORATORY EXAMINATION 03/06/2018 IJEOMA CHIU MD Ot V74.8 SCREEN-BACTERIAL DIS NEC 03/06/2018 IJEOMA CHIU MD Ot Z01.812 ENCOUNTER FOR PREPROCEDURAL LABORATORY E 03/06/2018 MARY VALDES MD Ot 562.10 DIVERTICULOSIS COLON (W/O MENT OF HEMORR 03/06/2018 MARY VALDES MD Ot 780.60 FEVER, UNSPECIFIED 03/06/2018 MARY VALDES MD Ot M12.9 ARTHROPATHY, UNSPECIFIED 03/06/2018 MARY VALDES MD Ot M48.06 SPINAL STENOSIS, LUMBAR REGION 03/06/2018 MARY VALDES MD Ot 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, 03/06/2018 ELVI ARANDA, BELEN Dickerson Ot 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 RADICULO 03/06/2018 MARY VALDES MD Ot K57.30 DVRTCLOS OF LG INT W/O PERFORATION OR AB 03/06/2018 VALDES MD, MARY L Ot M54.12 RADICULOPATHY, CERVICAL REGION 03/06/2018 EKISHA ARANDA, MARY Weinstein Ot Z53.8 PROCEDURE AND TREATMENT NOT CARRIED OUT 03/06/2018 RYAN VAUGHAN CONTINUOUS IMPROVEMENT LEAD Ot I10 ESSENTIAL (PRIMARY) HYPERTENSION 03/06/2018 RYAN VAUGHAN CONTINUOUS IMPROVEMENT LEAD Ot R61 GENERALIZED HYPERHIDROSIS 03/06/2018 RAE NELI L METALLURGICAL ENGINEERING TECHNICIAN Ot I10 ESSENTIAL (PRIMARY) HYPERTENSION 03/06/2018 GINGER ARANDA FAC, ALI FACP CCDS Ot I10 ESSENTIAL (PRIMARY) HYPERTENSION 03/06/2018 GINGER ARANDA FAC, ALI FACP CCDS Ot R00.2 PALPITATIONS 03/06/2018 GINGER ARANDA FAC, ALI FACP CCDS Ot R06.02 SHORTNESS OF BREATH 03/06/2018 GINGER ARANDA FAC, ALI FACP CCDS Ot I10 ESSENTIAL (PRIMARY) HYPERTENSION 03/06/2018 GINGER ARANDA FAC, ALI FACP CCDS Ot R00.2 PALPITATIONS 03/06/2018 GINGER ARANDA FAC, ALI FACP CCDS Ot R06.02 SHORTNESS OF BREATH 03/06/2018 FREDDIE, DONALD L CONTINUOUS IMPROVEMENT LEAD Ot E78.5 HYPERLIPIDEMIA, UNSPECIFIED 03/06/2018 FREDDIE, DONALD L CONTINUOUS IMPROVEMENT LEAD Ot F41.1 GENERALIZED ANXIETY DISORDER 03/06/2018 FREDDIE, DONALD L CONTINUOUS IMPROVEMENT LEAD Ot I10 ESSENTIAL (PRIMARY) HYPERTENSION 03/06/2018 FREDDIE, DONALD L CONTINUOUS IMPROVEMENT LEAD Ot M79.1 MYALGIA 03/06/2018 FREDDIE, DONALD L CONTINUOUS IMPROVEMENT LEAD Ot R42 DIZZINESS AND GIDDINESS 03/06/2018 FREDDIE, DONALD L CONTINUOUS IMPROVEMENT LEAD Ot R53.83 OTHER FATIGUE 03/06/2018 BRITTNY LOZANO MD C Ot R53.83 OTHER FATIGUE 03/06/2018 BRITTNY LOZANO MD C Ot R53.83 OTHER FATIGUE 03/06/2018 BHAKTI PANIAGUA MD Ot E87.1 HYPO-OSMOLALITY AND HYPONATREMIA 03/06/2018 BHAKTI PANIAGUA MD Ot F41.9 ANXIETY DISORDER, UNSPECIFIED 03/06/2018 BHAKTI PANIAGUA MD Ot I10 ESSENTIAL (PRIMARY) HYPERTENSION 03/06/2018 BHAKTI PANIAGUA MD Ot K21.9 GASTRO-ESOPHAGEAL REFLUX DISEASE WITHOUT 03/06/2018 BHAKTI PANIAGUA MD Ot R03.0 ELEVATED BLOOD-PRESSURE READING, W/O ARINA 03/06/2018 BHAKTI PANIAGUA MD Ot R53.1 WEAKNESS 03/06/2018 BHAKTI PANIAGUA MD Ot Z87.19 PERSONAL HISTORY OF OTHER DISEASES OF 03/06/2018 BHAKTI PANIAGUA MD Ot Z87.891 PERSONAL HISTORY OF NICOTINE DEPENDENCE 03/06/2018 BHAKTI PANIAGUA MD Ot Z88.8 ALLERGY STATUS TO OTH DRUG/MEDS/BIOL SUB 03/06/2018 BHAKTI PANIAGUA MD Ot 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 OF OTHER ORGANS 03/08/2018 BHAKTI PANIAGUA MD Ot E87.1 HYPO-OSMOLALITY AND HYPONATREMIA 03/08/2018 BHAKTI PANIAGUA MD Ot F41.9 ANXIETY DISORDER, UNSPECIFIED 03/08/2018 BHAKTI PANIAGUA MD Ot I10 ESSENTIAL (PRIMARY) HYPERTENSION 03/08/2018 BHAKTI PANIAGUA MD Ot K21.9 GASTRO-ESOPHAGEAL REFLUX DISEASE WITHOUT 03/08/2018 BHAKTI PANIAGUA MD Ot R03.0 ELEVATED BLOOD-PRESSURE READING, W/O ARINA 03/08/2018 BHAKTI PANIAGUA MD Ot R53.1 WEAKNESS 03/08/2018 BHAKTI PANIAGUA MD Ot Z87.19 PERSONAL HISTORY OF OTHER DISEASES OF 03/08/2018 BHAKTI PANIAGUA MD Ot Z87.891 PERSONAL HISTORY OF NICOTINE DEPENDENCE 03/08/2018 BHAKTI PANIAGUA MD Ot Z88.8 ALLERGY STATUS TO OT DRUG/MEDS/BIOL SUB 03/08/2018 BHAKTI PANIAGUA MD Ot 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 OF OTHER ORGANS 03/14/2018 MARTA ARANDA, BRITTNY C Ot R53.83 OTHER FATIGUE 03/16/2018 GINGER ARANDA FACC, MIQUEL NAZARIO CCDS Ot I10 ESSENTIAL (PRIMARY) HYPERTENSION 03/16/2018 GINGER ARANDA FACC, MIQUEL NAZARIO CCDS Ot R00.2 PALPITATIONS 03/16/2018 GINGER ARANDA FACC, MIQUEL NAZARIO CCDS Ot R06.02 SHORTNESS OF BREATH 03/20/2018 KAREN DEJESUS DO Ot A21.1 OCULOGLANDULAR TULAREMIA 03/20/2018 KAREN DEJESUS DO Ot I10 ESSENTIAL (PRIMARY) HYPERTENSION 03/20/2018 KAREN DEJESUS DO Ot R53.83 OTHER FATIGUE 03/20/2018 KAREN DEJESUS DO Ot Z12.5 ENCOUNTER FOR SCREENING FOR MALIGNANT NE 03/20/2018 KAREN DEJESUS DO Ot Z72.89 OTHER PROBLEMS RELATED TO LIFESTYLE 03/29/2018 KAREN DEJESUS DO Ot A21.1 OCULOGLANDULAR TULAREMIA 03/29/2018 KAREN DEJESUS DO Ot I10 ESSENTIAL (PRIMARY) HYPERTENSION 03/29/2018 KAREN DEJESUS DO Ot R53.83 OTHER FATIGUE 03/29/2018 KAREN DEJESUS DO Ot Z12.5 ENCOUNTER FOR SCREENING FOR MALIGNANT NE 03/29/2018 KAREN DEJESUS DO Ot Z72.89 OTHER PROBLEMS RELATED TO LIFESTYLE Procedures There is no data. Results Test Result Range BMP - 07/06/16 09:05 Anion Gap 16 6-14 [...] rickettsii IgG antibody assay (units/volume) < <1:16 [place] spotted fever panel < <1:10 Francisella tularensis [...] automated white blood cell (WBC) differential - 03/06/18 20:30 Blood leukocytes automated count (number/volume) 8.8 10*3/uL 4.3-11.0 Blood erythrocytes automated count (number/volume) 4.40 10*6/uL 4.35-5.85 Venous blood hemoglobin measurement (mass/volume) 13.8 g/dL 13.3-17.7 Blood hematocrit (volume fraction) 36 % 40-54 Automated erythrocyte mean corpuscular volume 83 [foz_us] 80-99 Automated erythrocyte mean corpuscular hemoglobin (mass per erythrocyte) 31 pg 25-34 Automated erythrocyte mean corpuscular hemoglobin concentration measurement ( mass/volume) 38 g/dL 32-36 Automated erythrocyte distribution width ratio 12.9 % 10.0-14.5 Automated blood platelet count (count/volume) 296 10*3/uL 130-400 Automated blood platelet mean volume measurement 9.7 [foz_us] 7.4-10.4 Automated blood neutrophils/100 leukocytes 75 % 42-75 Automated blood lymphocytes/100 leukocytes 14 % 12-44 Blood monocytes/100 leukocytes 9 % 0-12 Automated blood eosinophils/100 leukocytes 2 % 0-10 Automated blood basophils/100 leukocytes 0 % 0-10 Blood neutrophils automated count (number/volume) 6.5 10*3 1.8-7.8 Blood lymphocytes automated count (number/volume) 1.2 10*3 1.0-4.0 Blood monocytes automated count (number/volume) 0.8 10*3 0.0-1.0 Automated eosinophil count 0.2 10*3/uL 0.0-0.3 Automated blood basophil count (count/volume) 0.0 10*3/uL 0.0-0.1 Whole blood basic metabolic panel - 03/06/18 20:30 Serum or plasma sodium measurement (moles/volume) 128 mmol/L 135-145 Serum or plasma potassium measurement (moles/volume) 4.0 mmol/L 3.6-5.0 Serum or plasma chloride measurement (moles/volume) 95 mmol/L 98-107 Carbon dioxide 23 mmol/L 21-32 Serum or plasma anion gap determination (moles/volume) 10 mmol/L 5-14 Serum or plasma urea nitrogen measurement (mass/volume) 8 mg/dL 7-18 Serum or plasma creatinine measurement (mass/volume) 0.78 mg/dL 0.60-1.30 Serum or plasma urea nitrogen/creatinine mass ratio 10 NRG Serum or plasma creatinine measurement with calculation of estimated glomerular filtration rate > NRG Serum or plasma glucose measurement (mass/volume) 110 mg/dL 70-105 Serum or plasma calcium measurement (mass/volume) 9.9 mg/dL 8.5-10.1 Magnesium - 03/06/18 20:30 Magnesium 1.7 mg/dL 1.8-2.4 Serum or plasma troponin i.cardiac measurement (mass/volume) - 03/06/18 20:30 Serum or plasma troponin i.cardiac measurement (mass/volume) < ng/ mL <0.30 Complete urinalysis with reflex to culture - 03/06/18 21:42 Urine color determination YELLOW NRG Urine clarity determination CLEAR NRG Urine pH measurement by test strip 7 5-9 Specific gravity of urine by test strip 1.005 1.016- 1.022 Urine protein assay by test strip, semi-quantitative NEGATIVE NEGATIVE Urine glucose detection by automated test strip NEGATIVE NEGATIVE Erythrocytes detection in urine sediment by light microscopy NEGATIVE NEGATIVE Urine ketones detection by automated test strip NEGATIVE NEGATIVE Urine nitrite detection by test strip NEGATIVE NEGATIVE Urine total bilirubin detection by test strip NEGATIVE NEGATIVE Urine urobilinogen measurement by automated test strip (mass/volume) NORMAL NORMAL Urine leukocyte esterase detection by dipstick NEGATIVE NEGATIVE Automated urine sediment erythrocyte count by microscopy (number/high power field) NONE NRG Automated urine sediment leukocyte count by microscopy (number/high power field ) RARE NRG Bacteria detection in urine sediment by light microscopy NEGATIVE NRG Crystals detection in urine sediment by light microscopy NONE NRG Casts detection in urine sediment by light microscopy NONE NRG Mucus detection in urine sediment by light microscopy NEGATIVE NRG Complete urinalysis with reflex to culture NO NRG Other elements identification in urine sediment by light microscopy FEW SPERM NRG Complete blood count (CBC) with automated white blood cell (WBC) differential - 03/16/18 11:00 Blood leukocytes automated count (number/volume) 7.9 10*3/uL 4.3-11.0 Blood erythrocytes automated count (number/volume) 4.53 10*6/uL 4.35-5.85 Venous blood hemoglobin measurement (mass/volume) 14.1 g/dL 13.3-17.7 Blood hematocrit (volume fraction) 39 % 40-54 Automated erythrocyte mean corpuscular volume 85 [foz_us] 80-99 Automated erythrocyte mean corpuscular hemoglobin (mass per erythrocyte) 31 pg 25-34 Automated erythrocyte mean corpuscular hemoglobin concentration measurement ( mass/volume) 37 g/dL 32-36 Automated erythrocyte distribution width ratio 13.5 % 10.0-14.5 Automated blood platelet count (count/volume) 289 10*3/uL 130-400 Automated blood platelet mean volume measurement 10.0 [foz_us] 7.4-10.4 Automated blood neutrophils/100 leukocytes 67 % 42-75 Automated blood lymphocytes/100 leukocytes 16 % 12-44 Blood monocytes/100 leukocytes 10 % 0-12 Automated blood eosinophils/100 leukocytes 7 % 0-10 Automated blood basophils/100 leukocytes 0 % 0-10 Blood neutrophils automated count (number/volume) 5.3 10*3 1.8-7.8 Blood lymphocytes automated count (number/volume) 1.2 10*3 1.0-4.0 Blood monocytes automated count (number/volume) 0.8 10*3 0.0-1.0 Automated eosinophil count 0.5 10*3/uL 0.0-0.3 Automated blood basophil count (count/volume) 0.0 10*3/uL 0.0-0.1 Comprehensive metabolic panel - 03/16/18 11:00 Serum or plasma sodium measurement (moles/volume) 133 mmol/L 135-145 Serum or plasma potassium measurement (moles/volume) 4.0 mmol/L 3.6-5.0 Serum or plasma chloride measurement (moles/volume) 99 mmol/L 98-107 Carbon dioxide 25 mmol/L 21-32 Serum or plasma anion gap determination (moles/volume) 9 mmol/L 5-14 Serum or plasma urea nitrogen measurement (mass/volume) 11 mg/dL 7-18 Serum or plasma creatinine measurement (mass/volume) 0.79 mg/dL 0.60-1.30 Serum or plasma urea nitrogen/creatinine mass ratio 14 NRG Serum or plasma creatinine measurement with calculation of estimated glomerular filtration rate > NRG Serum or plasma glucose measurement (mass/volume) 100 mg/dL 70-105 Serum or plasma calcium measurement (mass/volume) 10.2 mg/dL 8.5-10.1 Serum or plasma total bilirubin measurement (mass/volume) 1.4 mg/dL 0.1-1.0 Serum or plasma alkaline phosphatase measurement (enzymatic activity/volume) 57 U/L 40-136 Serum or plasma aspartate aminotransferase measurement (enzymatic activity/ volume) 13 U/L 5-34 Serum or plasma alanine aminotransferase measurement (enzymatic activity/volume ) 23 U/L 0-55 Serum or plasma protein measurement (mass/volume) 7.0 g/dL 6.4-8.2 Serum or plasma albumin measurement (mass/volume) 4.4 g/dL 3.2-4.5 CALCIUM CORRECTED 9.9 mg/dL 8.5-10.1 Magnesium - 03/16/18 11:00 Magnesium 1.6 mg/dL 1.8-2.4 THYROID STIMULATING HORMONE - 03/16/18 11:00 THYROID STIMULATING HORMONE 1.15 u[iU]/mL 0.35-4.94 Serum or plasma thyroxine (T4) free measurement (mass/volume) - 03/16/18 11:00 Serum or plasma thyroxine (T4) free measurement (mass/volume) 1.21 ng/dL 0.70-1.48 Serum hepatitis C virus antibody assay (units/volume) - 03/16/18 11:00 Serum hepatitis C virus antibody detection Non-Reactive Non-Reactive Serum or plasma testosterone measurement (mass/volume) - 03/16/18 11:00 Testosterone [mass or moles/volume] in serum or plasma 411.99 % 220.91-715.81 Francisella tularensis antibody assay - 03/16/18 11:00 Francisella tularensis antibody assay 1:80 NRG Semen free prostate specific antigen (PSA) measurement (units/volume) - 11:00 Prostate specific ag [mass/volume] in serum or plasma 3.81 % 0.00-4.00 Encounters ACCT No. Visit Date/Time Discharge Status Pt. Type Provider Facility Loc./Unit Complaint [id number] 03/16/2018 10:36:00 03/16/2018 23:59:59 CLS Outpatient KAREN DEJESUS DO [facility] LAB Z72.89 [id number] 03/06/2018 18:15:00 03/06/2018 22:53:00 DIS Emergency ARCELIA ARANDA, BHAKTI Chavis [facility] ER ELEVATED BP,WEAKNESS [id number] 03/05/2018 23:10:00 03/06/2018 01:15:00 DIS Emergency ARCELIA ARANDA, BHAKTI Chavis [facility] ER ARRHYTHMIA,NAUSEA [id number] 03/01/2018 07:42:00 03/01/2018 23:59:59 CLS Outpatient BRITTNY LOZANO MD [facility] LAB LOW TESTOSTERONE SYMPTOMS ,FATIGUE [id number] 02/09/2018 16:42:00 02/09/2018 23:59:59 CLS Outpatient DONALD FRAZIER APRN [facility] LAB FATIGUE;DIZZINESS; HYPERTENSION;LIGHTHEADED;MYALGIA [id number] 02/08/2018 07:39:00 02/08/2018 23:59:59 CLS Outpatient MIQUEL MILES MD, FACC, FACP CCDS [facility] CARD PALPITATIONS, SOB,HTN [id number] 02/06/2018 11:02:00 02/06/2018 23:59:59 CLS Outpatient MIQUEL MILES MD, FACC, FACP CCDS [facility] CARD PALPITATIONS, SOB,HTN [id number] 01/08/2018 14:03:00 01/08/2018 23:59:59 CLS Preadmit NELI MCBRIDE METALLURGICAL ENGINEERING TECHNICIAN [facility] RAD HTN [id number] 01/08/2018 13:57:00 01/08/2018 23:59:59 CLS Outpatient NELI MCBRIDE METALLURGICAL ENGINEERING TECHNICIAN [facility] CARD HTN [id number] 01/06/2018 14:58:00 01/06/2018 16:10:00 DIS Emergency MAGNO FOLEY CONTINUOUS IMPROVEMENT LEAD [facility] ER ELEV BP [id number] 12/23/2017 08:59:00 12/23/2017 10:05:00 DIS Emergency GABRIELA BLAIR DO [facility] ER HIGH BLOOD PRESSURE, NAUSEA [id number] 2017 09:34:00 2017 23:59:59 CLS Outpatient RYAN VAUGHAN CONTINUOUS IMPROVEMENT LEAD [facility] CARD HTN,DIAPHORESIS [id number] 2017 17:29:00 2017 19:07:00 DIS Emergency MAGNO FOLEY Tuan CONTINUOUS IMPROVEMENT LEAD [facility] ER HIGH BP [id number] 10/18/2017 19:08:00 10/18/2017 22:50:00 DIS Emergency BHAKTI PANIAGUA MD [facility] ER HIGH BP [id number] 08/21/2017 12:37:00 08/21/2017 23:59:59 CLS Outpatient MARY VALDES MD [facility] RAD CERVICALGIA [id number] 09/06/2016 09:37:00 09/06/2016 23:59:59 CLS Outpatient MARY VALDES MD [facility] RAD DIVERTICULITIS [id number] 04/01/2016 07:19:00 04/01/2016 08:15:00 DIS Outpatient BELEN BOLES MD [facility] CARD DISC DISORER [id number] 12/25/2015 08:37:00 12/25/2015 23:59:59 CLS Outpatient BELEN BOLES MD [facility] CARD DISC DISORDER W/ RADICULOPATHY [id number] 10/27/2015 08:58:00 10/27/2015 23:59:59 CLS Outpatient MARY VALDES MD [facility] RAD LUMBAR PAIN, RADICULOPATHY [id number] 03/03/2015 18:35:00 03/03/2015 23:59:59 CLS Outpatient MARY VALDES MD [facility] RAD FEVER,ABD PAIN, DIVERTICULOSIS [id number] 02/09/2015 10:55:00 02/09/2015 16:55:00 DIS Outpatient IPSEN MD, IJEOMA J [facility] SDC COMPRESSION FRACTURE [id number] 02/04/2015 09:19:00 02/04/2015 23:59:59 CLS Outpatient IJEOMA CHIU MD [facility] PREOP COMPRESSION FRACTURE [id number] 10/31/2014 14:27:00 10/31/2014 23:59:59 CLS Outpatient ALDANA, MELCHOR Dickerson METALLURGICAL ENGINEERING TECHNICIAN [facility] RAD ABD PAIN,DIARRHEA [id number] 10/31/2014 17:30:00 10/31/2014 18:54:00 DIS Emergency NING RIOS MD [facility] ER LOWER INTESTINE BLOCKAGE [id number] 10/30/2014 14:36:00 10/30/2014 23:59:59 CLS Outpatient MARY VALDES MD [facility] RAD LUMBAR PAIN, FALL [id number] 12/05/2012 09:20:00 12/05/2012 23:59:59 CLS Outpatient MARY VALDES MD [facility] LAB HTN [id number] 01/16/2018 22:32:00 Document Registration [id number] 01/26/2015 09:08:00 Document Registration [id number] 10/30/2014 14:35:00 Document Registration [id number] 08/31/2012 14:55:00 Document Registration [id number] 07/04/2012 08:44:00 Document Registration [id number] 08/29/2011 13:00:00 Document Registration [id number] 02/01/2011 07:54:00 Document Registration [id number] 01/02/2018 08:53:00 01/02/2018 23:59:59 CLS Outpatient [id number] 01/17/2018 19:12:00 01/17/2018 20:30:00 DIS Outpatient Koffi Workman [id number] 10/26/2017 12:06:00 10/26/2017 23:59:00 DIS Outpatient MARY VALDES [id number] 10/16/2017 16:45:00 10/16/2017 23:59:00 DIS Outpatient Reyna Thorpe [id number] 10/16/2017 11:24:00 10/16/2017 23:59:00 DIS Outpatient Reyna Thorpe [id number] 06/13/2017 11:53:00 06/13/2017 23:59:00 DIS Outpatient MARY VALDES [id number] 09/06/2016 08:40:00 09/06/2016 23:59:00 DIS Outpatient MARY VALDES [id number] 07/06/2016 09:18:00 07/06/2016 23:59:00 DIS Outpatient MARY VALDES [id number] 08/28/2017 15:07:46 08/28/2017 23:59:59 CLS Outpatient [id number] 08/05/2017 09:20:00 08/05/2017 23:59:59 CLS Outpatient [facility]
[2018-04-10] MEDS ORDERED: VIT D (17:31)
[2018-04-10] MEDS ORDERED: NF-ESOM40C PO (17:31)
[2018-04-10] MEDS ORDERED: LOSA25TA6 PO (17:31)
[2018-04-10] MEDS ORDERED: OMEG-33 PO (17:31)
[2018-04-10] MEDS ORDERED: DILT120C53 PO (17:31)
[2018-04-10 17:52] LABS: BASOPHILS % (AUTO) 0 % (0-10); EOSINOPHILS # (AUTO) 0.6 10^3/uL (0.0-0.3); EOSINOPHILS % (AUTO) 6 % (0-10); HEMATOCRIT 33 % (40-54); HEMOGLOBIN 11.7 G/DL (13.3-17.7); LYMPHOCYTES # (AUTO) 1.2 X 10^3 (1.0-4.0); LYMPHOCYTES % (AUTO) 13 % (12-44); MEAN CORPUSCULAR HEMOGLOBIN 31 PG (25-34); MEAN CORPUSCULAR HGB CONC 36 G/DL (32-36); MEAN CORPUSCULAR VOLUME 89 FL (80-99); MEAN PLATELET VOLUME 10.4 FL (7.4-10.4); MONOCYTES # (AUTO) 0.7 X 10^3 (0.0-1.0); MONOCYTES % (AUTO) 7 % (0-12); NEUTROPHILS # (AUTO) 6.7 X 10^3 (1.8-7.8); NEUTROPHILS % (AUTO) 74 % (42-75); PLATELET COUNT 294 10^3/uL (130-400); RED BLOOD COUNT 3.73 10^6/uL (4.35-5.85); RED CELL DISTRIBUTION WIDTH 14.3 % (10.0-14.5); WHITE BLOOD COUNT 9.1 10^3/uL (4.3-11.0)
--- NOTE | 2018-04-10 17:52 | Diagnostic Imaging Report ---
INDICATION: Chills and weakness. TIME OF EXAM: 05:46 p.m. Correlation is made with prior study from 03/06/2018. FINDINGS: The heart size is normal. The pulmonary vascularity is unremarkable. The lungs are clear. No infiltrate, effusion or pneumothorax is detected. IMPRESSION: No acute cardiopulmonary process is detected. Dictated by: Dictated on workstation # [id number]
[2018-04-10 18:16] LABS: BILIRUBIN,URINE NEGATIVE (NEGATIVE); CLARITY,URINE CLEAR; COLOR,URINE YELLOW; GLUCOSE, URINE (UA) NEGATIVE (NEGATIVE); KETONES,URINE NEGATIVE (NEGATIVE); LEUKOCYTE ESTERASE ,URINE NEGATIVE (NEGATIVE); NITRITE,URINE NEGATIVE (NEGATIVE); PH,URINE 7 (5-9); PROTEIN,URINE NEGATIVE (NEGATIVE); UROBILINOGEN,URINE NORMAL (NORMAL)
[2018-04-10 18:22] LABS: SQUAMOUS EPITHELIAL CELL,UR RARE /HPF
[2018-04-10 18:25] LABS: INR 0.9 (0.8-1.4); PROTHROMBIN TIME PATIENT 12.5 SEC (12.2-14.7)
[2018-04-10 18:34] LABS: ALANINE AMINOTRANSFERASE 20 U/L (0-55); ALBUMIN 4.1 GM/DL (3.2-4.5); ALKALINE PHOSPHATASE 56 U/L (40-136); BILIRUBIN,TOTAL 0.8 MG/DL (0.1-1.0); BUN/CREATININE RATIO 11; CALCIUM 9.4 MG/DL (8.5-10.1); CARBON DIOXIDE 24 MMOL/L (21-32); CHLORIDE 100 MMOL/L (98-107); CREATININE SERUM 0.81 MG/DL (0.60-1.30); GFR ESTIMATED > 60; GLUCOSE 110 MG/DL (70-105); POTASSIUM 3.6 MMOL/L (3.6-5.0); SODIUM 133 MMOL/L (135-145); TOTAL PROTEIN 6.5 GM/DL (6.4-8.2)
--- NOTE | 2018-04-10 18:53 | ED General ---
General Chief Complaint: General Problems/Pain Stated Complaint: SHAKEY, SLEEPY, UPPER BODY HOT, LIGHTHEADED Nursing Triage Note: PT CO OF SHAKINESS, LIGHTHEADED, UPPER BODY HOT, SLEEPY, STARTED THIS AM. PT STATES HAS TULERIMIA. Nursing Sepsis Screen: No Definite Risk Source of Information: Patient Exam Limitations: No Limitations History of Present Illness Date Seen by Provider: Apr 10, 2018 Time Seen by Provider: 17:22 Initial Comments Here with report of feeling shaky and lightheaded. Describes his upper body as being hot. Woke up this morning and was feeling this way and has continued throughout the day. He did go to work for a while and was trying to drink fluids but was not feeling better. Currently being treated for tularemia. He was apparently on doxycycline for several weeks and had no change in his tularemia levels and was started on ciprofloxacin. He has been on that for a couple weeks now. Denies breathing problems, cough, rash or other concerns. Has had some loose stools today but not diarrhea. Timing/Duration: 12 Hours Severity: Moderate Modifying Factors: improves with Other (denies) Associated Systoms: No Chest Pain, No Cough; Fever/Chills; No Nausea/Vomiting, No Shortness of Air; Weakness Allergies and Home Medications Allergies Coded Allergies: Sulfa (Sulfonamide Antibiotics) (Verified Allergy, Unknown, 04/10/18) dextromethorphan (Verified Allergy, Unknown, 04/10/18) meperidine (Unverified Adverse Reaction, Unknown, 10/31/14) Home Medications Diltiazem HCl 120 Mg Cap.er.24h, 120 MG PO DAILY, (Reported) Losartan Potassium 25 Mg Tablet, Unknown Dose PO DAILY, (Reported) Patient Home Medication List Home Medication List Reviewed: Yes Review of Systems Review of Systems Constitutional: see HPI, chills; No fever; weakness EENTM: no symptoms reported Respiratory: no symptoms reported Cardiovascular: no symptoms reported; No edema, No palpitations Gastrointestinal: No abdominal pain, No nausea, No vomiting Genitourinary: no symptoms reported Musculoskeletal: No back pain, No joint pain, No muscle pain; muscle weakness; No neck pain Skin: No change in color, No rash Psychiatric/Neurological: Denies Headache; Weakness Hematologic/Lymphatic: No Symptoms Reported All Other Systems Reviewed Negative Unless Noted: Yes Past [id number] Hx Past Med/Social Hx: Reviewed Nursing Past Med/Soc Hx Patient Social History Alcohol Use: Occasionally Uses Alcohol Beverage of Choice: Beer Recreational Drug Use: No Smoking Status: Never a Smoker Type Used: Cigarettes Former Smoker, Quit: October 10, 2006 2nd Hand Smoke Exposure: No Recent Foreign Travel: No Contact w/Someone Who Travel: No Recent Infectious Disease Expo: No Recent Hopitalizations: No Seasonal Allergies Seasonal Allergies: No Past Medical History Surgeries: Yes Abdominal, Appendectomy, Gallbladder, Orthopedic Respiratory: No Cardiac: Yes Hypertension, Irregular Heartbeat, Palpitations Neurological: No Reproductive Disorders: No HIV/AIDS: No Genitourinary: No Gastrointestinal: Yes (TAKES PRILOSEC) Gastroesophageal Reflux, Diverticulosis Musculoskeletal: Yes (BACK SURGERY; L1 COMPRESSION FX WITH KYPHOPLASTY 01/2015 , ) Chronic Back Pain Endocrine: No HEENT: No Loss of Vision: Bilateral Hearing Impairment: Denies Cancer: No Psychosocial: Yes Anxiety Integumentary: No Blood Disorders: Yes (tularemia) Adverse Reaction/Blood Tranf: No Family Medical History Reviewed Nursing Family Hx No Pertinent Family Hx Physical Exam-Suspected Sepsis Physical Exam Vital Signs Vital Signs - First Documented 04/10/18 17:15 Temp 98.2 Pulse 65 Resp 18 B/P (MAP) 170/86 (114) Pulse Ox 99 Capillary Refill : Less Than 3 Seconds Blood Pressure Mean: 114 Height, Weight, BMI Height: 6'0" Weight: 185lbs. 0.0oz. 83.046994zo; 26.5 BMI Method:Stated General Appearance: No Apparent Distress, WD/WN HEENT: PERRL/EOMI, Pharynx Normal Neck: Non Tender, Supple Respiratory: Lungs Clear, Normal Breath Sounds Cardiovascular: Regular Rate, Rhythm, No Murmur Gastrointestinal: Non Tender, Soft Back: Normal Inspection, No CVA Tenderness, No Vertebral Tenderness Extremity: Normal Range of Motion, Non Tender Neurologic/Psychiatric: Alert, Oriented x3 Skin: normal color, warm/dry Focused Exam Lactate Level 04/10/18 18:03: Lactic Acid Level 1.70 Lactic Acid Level Laboratory Tests Test 04/10/18 18:03 Lactic Acid Level 1.70 MMOL/L (0.50-2.00) Progress/Results/Core Measures Suspected Sepsis Recent Fever Within 48 Hours: No Infection Criteria Present: None New/Unexplained Altered Menta: No Sepsis Screen: No Definite Risk SIRS Temperature:98.2 Pulse: 65 Respiratory Rate: 18 Laboratory Tests 04/10/18 17:42: White Blood Count 9.1 Blood Pressure 170 /86 Mean: 114 04/10/18 18:03: Lactic Acid Level 1.70 Laboratory Tests 04/10/18 17:42: Platelet Count 294 04/10/18 18:03: Creatinine 0.81, INR Comment 0.9, Total Bilirubin 0.8 Results/Orders Lab Results Laboratory Tests Test 04/10/18 17:42 04/10/18 18:03 04/10/18 18:09 Range/Units White Blood Count 9.1 4.3-11.0 10^3/uL Red Blood Count 3.73 L 4.35-5.85 10^6/uL Hemoglobin 11.7 L 13.3-17.7 G/DL Hematocrit 33 L 40-54 % Mean Corpuscular Volume 89 80-99 FL Mean Corpuscular Hemoglobin 31 25-34 PG Mean Corpuscular Hemoglobin Concent 36 32-36 G/DL Red Cell Distribution Width 14.3 10.0-14.5 % Platelet Count 294 130-400 10^3/uL Mean Platelet Volume 10.4 7.4-10.4 FL Neutrophils (%) (Auto) 74 42-75 % Lymphocytes (%) (Auto) 13 12-44 % Monocytes (%) (Auto) 7 0-12 % Eosinophils (%) (Auto) 6 0-10 % Basophils (%) (Auto) 0 0-10 % Neutrophils # (Auto) 6.7 1.8-7.8 X 10^3 Lymphocytes # (Auto) 1.2 1.0-4.0 X 10^3 Monocytes # (Auto) 0.7 0.0-1.0 X 10^3 Eosinophils # (Auto) 0.6 H 0.0-0.3 10^3/uL Basophils # (Auto) 0.0 0.0-0.1 10^3/uL Prothrombin Time 12.5 12.2-14.7 SEC INR Comment 0.9 0.8-1.4 Activated Partial Thromboplast Time 35 24-35 SEC Sodium Level 133 L 135-145 MMOL/L Potassium Level 3.6 3.6-5.0 MMOL/L Chloride Level 100 98-107 MMOL/L Carbon Dioxide Level 24 21-32 MMOL/L Anion Gap 9 5-14 MMOL/L Blood Urea Nitrogen 9 7-18 MG/DL Creatinine 0.81 0.60-1.30 MG/DL Estimat Glomerular Filtration Rate > 60 BUN/Creatinine Ratio 11 Glucose Level 110 H 70-105 MG/DL Lactic Acid Level 1.70 0.50-2.00 MMOL/L Calcium Level 9.4 8.5-10.1 MG/DL Corrected Calcium 9.3 8.5-10.1 MG/DL Total Bilirubin 0.8 0.1-1.0 MG/DL Aspartate Amino Transf (AST/SGOT) 14 5-34 U/L Alanine Aminotransferase (ALT/SGPT) 20 0-55 U/L Alkaline Phosphatase 56 40-136 U/L Total Protein 6.5 6.4-8.2 GM/DL Albumin 4.1 3.2-4.5 GM/DL Urine Color YELLOW Urine Clarity CLEAR Urine pH 7 5-9 Urine Specific Cope 1.010 L 1.016-1.022 Urine Protein NEGATIVE NEGATIVE Urine Glucose (UA) NEGATIVE NEGATIVE Urine Ketones NEGATIVE NEGATIVE Urine Nitrite NEGATIVE NEGATIVE Urine Bilirubin NEGATIVE NEGATIVE Urine Urobilinogen NORMAL NORMAL MG/DL Urine Leukocyte Esterase NEGATIVE NEGATIVE Urine RBC (Auto) NEGATIVE NEGATIVE Urine RBC NONE /HPF Urine WBC NONE /HPF Urine Squamous Epithelial Cells RARE /HPF Urine Crystals NONE /LPF Urine Bacteria NONE /HPF Urine Casts NONE /LPF Urine Mucus NEGATIVE /LPF Urine Culture Indicated NO Micro Results Microbiology 04/10/18 Influenza Types A,B Antigen (MARYANN) - Final, Complete My Orders Orders - NING RIOS MD Cbc With Automated Diff (04/10/18 17:19) Comprehensive Metabolic Panel (04/10/18 17:19) Blood Culture (04/10/18 17:19) Sputum Culture (04/10/18 17:19) Urinalysis (04/10/18 17:19) Urine Culture (04/10/18 17:19) Protime With Inr (04/10/18 17:19) Partial Thromboplastin Time (04/10/18 17:19) Chest 1 View, Ap/Pa Only (04/10/18 17:19) Saline Lock/Iv-Start (04/10/18 17:19) Vital Signs Adult Sepsis Patie Q15M (04/10/18 17:19) O2 (04/10/18 17:19) Remove Rings In Anticipation O (04/10/18 17:19) Lactic Acid Analyzer (04/10/18 17:19) Influenza A And B Antigens (04/10/18 17:19) Vital Signs/I&O 04/10/18 17:15 Temp 98.2 Pulse 65 Resp 18 B/P (MAP) 170/86 (114) Pulse Ox 99 Capillary Refill : Less Than 3 Seconds Blood Pressure Mean: 114 Progress Note : Progress Note Seen and evaluated. IV, labs, blood cultures and lactic acid ordered. UA and chest x-ray ordered. Sepsis workup initiated due to shaking chills. Monitor patient. 1904: No acute findings on the workup. He has appointment with Dr. Nguyen tomorrow. This may be Cipro effect or other medication effect. At this point given his normal labs otherwise we believe is safe for him to be able to go home with the understanding that he needs to continue his follow-up and discuss this with Dr. Nguyen tomorrow. We will send a copy the chart and Dr. Nguyen. Discharged home with return precautions. Patient family verbalized understanding instructions and agreement with plan. Diagnostic Imaging Diagonstic Imaging: Xray Plain Films/CT/US/NM/MRI: chest Comments NAME: CHELSI FORDE MED REC#: [id number] PT STATUS: REG ER : 1955 PHYSICIAN: NING RIOS MD ADMIT DATE: 04/10/18/ER Signed Date of Exam: 04/10/18 CHEST 1 VIEW, AP/PA ONLY INDICATION: Chills and weakness. TIME OF EXAM: 05:46 p.m. Correlation is made with prior study from 03/06/2018. FINDINGS: The heart size is normal. The pulmonary vascularity is unremarkable. The lungs are clear. No infiltrate, effusion or pneumothorax is detected. IMPRESSION: No acute cardiopulmonary process is detected. Dictated by: Dictated on workstation # [id number] Dict: 04/10/181749 Trans: 04/10/181805 Interpreted by: EYAL HERNANDEZ MD Electronically signed by: EYAL HERNANDEZ MD 04/10/181805 Departure Impression Primary Impression: Fatigue Qualified Codes: R53.83 - Other fatigue Disposition: 01 HOME, SELF-CARE Condition: Stable Departure-Patient Inst. Decision time for Depature: 19:08 Referrals: KAREN NGUYEN DO (PCP/Family) Primary Care Physician Patient Instructions: Fatigue (DC) Add. Discharge Instructions: All discharge instructions reviewed with patient and/or family. Voiced understanding. Continue home medications as previously prescribed. Keep appointment with Dr. Nguyen tomorrow at 230 as scheduled. Return for worsening, fever, vomiting, weakness, breathing problems or other concerns as needed. Copy Copies To 1: KAREN NGUYEN TIMOTHY D MD Apr 10, 2018 18:53
[2018-04-10 19:18] VITALS: BP 157/89
== END 2018-04-10 19:19 | disposition home or self-care (01) ==
LOC: EDUNIT# 16:58 → ER 17:00
DX: R53.83 Other fatigue (principal); A21.9 Tularemia, unspecified; I10 Essential (primary) hypertension; K21.9 Gastro-esophageal reflux disease without esophagitis; F41.9 Anxiety disorder, unspecified; Z87.19 Personal history of other diseases of the digestive system; Z90.89 Acquired absence of other organs; Z87.891 Personal history of nicotine dependence; Z88.2 Allergy status to sulfonamides; Z88.8 Allergy status to other drugs, medicaments and biological substances
CPT/HCPCS: 36415; 71045; 80053; 81000; 83605; 85025; 85610; 85730; 87040; 87088; 87804

== ENCOUNTER → 2018-04-30 | Outpatient (CLI) | payer BC ==
[~2018-04-30] MED LIST changes: +DILT120C53 PO; +LOSA25TA6 PO; +NF-ESOM40C PO; +OMEG-33 PO; +VIT D
== END ==
LOC: LAB 17:20
PROVIDERS: ATTEND Internal Medicine
DX: I10 Essential (primary) hypertension (principal)
CPT/HCPCS: 36415; 82384; 82530; 83497; 84585

== ENCOUNTER 2018-05-01 08:45 | Outpatient (CLI) | payer BC | END 2018-05-01 09:15 | disposition home or self-care (01) | LOC: SLEEP 08:45 | PROVIDERS: ATTEND Internal Medicine | DX: G47.33 Obstructive sleep apnea (adult) (pediatric) (principal) ==

== ENCOUNTER → 2018-05-12 | Outpatient (CLI) | payer BC, OTHER ==
[~2018-05-12] MED LIST changes: +ASPI-999 PO; +ATOR40TA PO; +CHOL10007 PO; +CLOP75TA28 PO; +ESOM20CA58 PO; +LORA0.5T PO; +LOSA100T8 PO
[2018-05-12 14:06] LABS: BASOPHILS % (AUTO) 0 % (0-10); EOSINOPHILS # (AUTO) 0.3 10^3/uL (0.0-0.3); EOSINOPHILS % (AUTO) 4 % (0-10); HEMATOCRIT 39 % (40-54); HEMOGLOBIN 13.3 G/DL (13.3-17.7); LYMPHOCYTES # (AUTO) 1.4 X 10^3 (1.0-4.0); LYMPHOCYTES % (AUTO) 20 % (12-44); MEAN CORPUSCULAR HEMOGLOBIN 31 PG (25-34); MEAN CORPUSCULAR HGB CONC 35 G/DL (32-36); MEAN CORPUSCULAR VOLUME 90 FL (80-99); MEAN PLATELET VOLUME 10.3 FL (7.4-10.4); MONOCYTES # (AUTO) 0.6 X 10^3 (0.0-1.0); MONOCYTES % (AUTO) 8 % (0-12); NEUTROPHILS # (AUTO) 4.8 X 10^3 (1.8-7.8); NEUTROPHILS % (AUTO) 68 % (42-75); PLATELET COUNT 278 10^3/uL (130-400); RED CELL DISTRIBUTION WIDTH 13.1 % (10.0-14.5); WHITE BLOOD COUNT 7.1 10^3/uL (4.3-11.0)
[2018-05-12 14:25] LABS: ALANINE AMINOTRANSFERASE 28 U/L (0-55); ALBUMIN 4.3 GM/DL (3.2-4.5); ALKALINE PHOSPHATASE 67 U/L (40-136); BUN/CREATININE RATIO 14; CALCIUM 9.6 MG/DL (8.5-10.1); CARBON DIOXIDE 27 MMOL/L (21-32); CHLORIDE 103 MMOL/L (98-107); GFR ESTIMATED > 60; GLUCOSE 111 MG/DL (70-105); POTASSIUM 4.3 MMOL/L (3.6-5.0); SODIUM 137 MMOL/L (135-145); TOTAL PROTEIN 6.7 GM/DL (6.4-8.2)
[2018-05-12 14:32] LABS: CREATINE KINASE MB 1.5 NG/ML (<6.6); MYOGLOBIN SERUM 31.3 NG/ML (10.0-92.0)
== END ==
LOC: LAB 13:43
PROVIDERS: ATTEND Nurse Practitioner Family
DX: I10 Essential (primary) hypertension (principal); T50.905A Adverse effect of unspecified drugs, medicaments and biological substances, initial encounter; F41.9 Anxiety disorder, unspecified; R23.2 Flushing; E78.5 Hyperlipidemia, unspecified; R11.0 Nausea; I95.1 Orthostatic hypotension; R26.81 Unsteadiness on feet; A21.9 Tularemia, unspecified
CPT/HCPCS: 36415; 80053; 82553; 83874; 84484; 85025; 86141

== ENCOUNTER 2018-05-15 13:29 | Day surgery (SDC) | payer BC, OTHER ==
[~2018-05-15] VITALS: Ht 182.9 cm; Wt 86.2 kg
[2018-05-15] VITALS (8 sets, daily range): BP systolic 124–184; BP diastolic 65–96
[~2018-05-15 13:29] MED LIST changes: -ASPI-999 PO; -ATOR40TA PO; -CHOL10007 PO; -CLOP75TA28 PO; -ESOM20CA58 PO; -LORA0.5T PO; -LOSA100T8 PO
[2018-05-15] MEDS ORDERED: HEParin (CATH LAB) 2,000 ML IV ONE (13:36)
[2018-05-15] MEDS ORDERED: NS IV 1000 ML 1,000 ML ONE (13:36)
[2018-05-15] MEDS ORDERED: LIDOCAINE 1% INJ 20 ML 20 ML VIAL ONE (13:36)
--- OUTSIDE RECORDS SUMMARY | 2018-05-15 13:40 | XMS REPORT | Continuity of Care Document ---
Author Author [facility] Organization [facility] Address Unknown Phone Unavailable Allergies Active Description Code Type Severity Reaction Onset Reported/Identified Relationship to Patient Clinical Status Yes SHRAVAN INHIBITORS UNKNOWN RESPIRATORY - COUGHI Yes DEMEROL UNKNOWN OTHER Yes DEXTROMETHORPHAN HBR SEVERE OTHER Yes GABAPENTIN UNKNOWN DIZZINESS Yes GABAPENTIN MODERATE OTHER Yes NKANo Known Allergies NKA Miscellaneous Allergy Unknown N/A 12/10/2005 Yes meperidine [id number] Drug Allergy Unknown N/A 10/31/2014 Yes dexamethasone [id number] Drug Allergy Unknown HTN, POSSIBLE S 10/18/2017 Yes dextromethorphan [id number] Drug Allergy Unknown N/A 04/10/2018 Yes Sulfa (Sulfonamide Antibiotics) [id number] Drug Allergy Unknown N/A 2017 Medications There is no data. Problems Date [...] KEISHA ARANDA, MARY Weinstein Ot E000.8 10/31/2014 MARY VALDES MD Ot E888.9 10/31/2014 Ot 789.00 10/31/2014 MARY VALDES MD Ot 805.4 10/31/2014 KEISHA ARANDA, MARY Weinstein Ot E000.8 10/31/2014 MARY VALDES MD Ot E888.9 10/31/2014 NING RIOS MD Ot 560.9 INTESTINAL OBSTRUCT NOS 10/31/2014 NING RIOS MD Ot 562.10 DIVERTICULOSIS COLON (W/O MENT OF HEMORR 10/31/2014 NING RIOS MD Ot 733.13 PATHOLOGIC FRACTURE, VERTEBRAE 10/31/2014 NING RIOS MD Ot 789.00 ABDOMINAL PAIN, UNSPECIFIED SITE 12/03/2014 KEISHA ARANDA, MARY Weinstein Ot 805.4 12/03/2014 KEISHA ARANDA, MARY Weinstein Ot E000.8 12/03/2014 KEISHA ARANDA, MARY Weinstein Ot E888.9 12/03/2014 MELCHOR ALDANA [place] TECHNICIAN Ot 557.1 12/03/2014 MELCHOR ALDANA [place] TECHNICIAN Ot 562.10 12/03/2014 MELCHOR ALDANA [place] TECHNICIAN Ot 787.3 12/03/2014 MELCHOR ALDANA [place] TECHNICIAN Ot 787.91 12/03/2014 ALDANAMELCHOR [place] TECHNICIAN Ot 789.00 12/16/2014 Ot 401.9 12/16/2014 Ot 401.9 12/16/2014 Ot 789.00 12/16/2014 KEISHA ARANDA, MARY Weinstein Ot 401.9 12/16/2014 KEISHA ARANDA, MARY Weinstein Ot 805.4 12/16/2014 KEISHA RAANDA, MARY Weinstein Ot E000.8 12/16/2014 KEISHA ARANDA, MARY Weinstein Ot E888.9 12/16/2014 MELCHOR ALDANA [place]ET[place] TECHNICIAN Ot 557.1 12/16/2014 ALDANAMELCHOR [place] TECHNICIAN Ot 562.10 12/16/2014 ALDANAMELCHOR [place] TECHNICIAN Ot 787.3 12/16/2014 ALDANAMELCHOR [place] TECHNICIAN Ot 787.91 12/16/2014 MELCHOR ALDAAN [place] TECHNICIAN Ot 789.00 12/16/2014 KEISHA ARANDA, MARY Weinstein Ot 805.4 12/16/2014 KEISHA ARANDA, MARY Weinstein Ot E000.8 12/16/2014 KEISHA ARANDA, MARY Weinstein Ot E888.9 12/16/2014 KEISHA ARANDA, MARY Weinstein Ot 805.4 12/16/2014 KEISHA ARANDA, MARY Weinstein Ot E000.8 12/16/2014 KEISHA ARANDA, MARY Weinstein Ot E888.9 12/16/2014 ALDANAMELCHOR J [place]ET[place] TECHNICIAN Ot 557.1 12/16/2014 ALDANA, MELCHOR J [place] TECHNICIAN Ot 562.10 12/16/2014 ALDANAHORTENCIALY J [place] TECHNICIAN Ot 787.3 12/16/2014 ALDANA, MELCHOR J [place] TECHNICIAN Ot 787.91 12/16/2014 ALDANA, MELCHOR J [place] TECHNICIAN Ot 789.00 02/05/2015 Ot 401.9 02/05/2015 Ot 401.9 02/05/2015 Ot 789.00 02/05/2015 KEISHA ARANDA, MARY Weinstein Ot 401.9 02/05/2015 KEISHA ARANDA, MARY Weinstein Ot 805.4 02/05/2015 KEISHA ARANDA, MARY Weinstein Ot E000.8 02/05/2015 KEISHA ARANDA, MARY Weinstein Ot E888.9 02/05/2015 ALDANA, MELCHOR J [place] TECHNICIAN Ot 557.1 02/05/2015 ALDANA, MELCHOR J [place] TECHNICIAN Ot 562.10 02/05/2015 ALDANA, MELCHOR J [place] TECHNICIAN Ot 787.3 02/05/2015 ALDANA, MELCHOR J [place] TECHNICIAN Ot 787.91 02/05/2015 ALDANA, MELCHOR J [place] TECHNICIAN Ot 789.00 02/05/2015 Ot 733.13 02/05/2015 APPLE ARANDA, IJEOMA Dickerson Ot 733.13 02/05/2015 IJEOMA CHIU MD Ot V72.63 02/05/2015 IJEOMA CHIU MD Ot V74.8 02/05/2015 ALDANA, MELCHOR J [place] TECHNICIAN Ot 557.1 02/05/2015 ALDANA, MELCHOR J [place] TECHNICIAN Ot 562.10 02/05/2015 ALDANA, MELCHOR J [place] TECHNICIAN Ot 787.3 02/05/2015 ALDANA, MELCHOR J [place] TECHNICIAN Ot 787.91 02/05/2015 ALDANA, MELCHOR J [place] TECHNICIAN Ot 789.00 02/05/2015 KEISHA ARANDA, MARY Weinstein Ot 805.4 02/05/2015 KEISHA ARANDA, MARY Weinstein Ot E000.8 02/05/2015 MARY VALDES MD Ot E888.9 02/09/2015 MARY VALDES MD Ot 805.4 02/09/2015 MARY VALDES MD Ot E000.8 02/09/2015 MARY VALDES MD Ot E888.9 02/09/2015 ALDANA MELCHORFRANCISCO JAVIER TYSONP Ot 557.1 02/09/2015 ALDANA MELCHOR J [place] TECHNICIAN Ot 562.10 02/09/2015 MELCHOR ALDANA [place] TECHNICIAN Ot 787.3 02/09/2015 ALDANAMELCHOR [place] TECHNICIAN Ot 787.91 02/09/2015 ALDANAMELCHOR [place] TECHNICIAN Ot 789.00 02/09/2015 IJEOMA CHIU MD [...] VALDES MD Ot E888.9 03/03/2015 MELCHOR ALDANA [place] TECHNICIAN Ot 557.1 03/03/2015 MELCHOR ALDANAP Ot 562.10 03/03/2015 MELCHOR ALDANAP Ot 787.3 03/03/2015 MELCHOR ALDANAP Ot 787.91 03/03/2015 MELCHOR ALDANAP Ot 789.00 03/03/2015 Ot 733.13 03/03/2015 IJOEMA CHIU MD Ot 733.13 03/03/2015 IJEOMA CHIU MD Ot V72.63 03/03/2015 IJEOMA CHIU MD Ot V74.8 03/05/2015 KEISHA ARANDA, MARY Weinstein Ot 562.10 03/05/2015 KEISHA ARANDA, MARY Weinstein [...] Weinstein Ot 401.9 03/16/2015 KEISHA ARANDA, MARY L Ot 805.4 03/16/2015 KEISHA ARANDA, MARY Js Ot E000.8 03/16/2015 KEISHA ARANDA, MARY Js Ot E888.9 03/16/2015 ALDANAMELCHOR [place] TECHNICIAN Ot 557.1 03/16/2015 ALDANA, MELCHOR J [place] TECHNICIAN Ot 562.10 03/16/2015 ALDANA, MELCHOR J [place] TECHNICIAN Ot 787.3 03/16/2015 ALDANA, MELCHOR J [place] TECHNICIAN Ot 787.91 03/16/2015 ALDANA, MELCHOR J [place] TECHNICIAN Ot 789.00 03/16/2015 Ot 733.13 03/16/2015 IJEOMA CHIU MD Ot 733.13 03/16/2015 IJEOMA CHIU MD Ot V72.63 03/16/2015 IJEOMA CHIU MD Ot V74.8 03/16/2015 IJEOMA CHIU MD Ot Z01.812 04/13/2015 KEISHA ARANDA, MARY Weinstein Ot 562.10 04/13/2015 KEISHA ARANDA, MARY L Ot 780.60 04/28/2015 KEISHA ARANDA, MARY Weinstein Ot 562.10 04/28/2015 KEISHA ARANDA, MARY Weinstein Ot 780.60 09/08/2015 KEISHA ARANDA, MARY Weinstein Ot 805.4 09/08/2015 KEISHA ARANDA, MARY Weinstein Ot E000.8 09/08/2015 KEISHA ARANDA, MARY Weinstein Ot E888.9 09/08/2015 ALDANAMELCHOR J [place] TECHNICIAN Ot 557.1 09/08/2015 ALDANAMELCHOR J [place] TECHNICIAN Ot 562.10 09/08/2015 ALDANAHORTENCIALY J [place] TECHNICIAN Ot 787.3 09/08/2015 ALDANAHORTENCIALY J [place] TECHNICIAN Ot 787.91 09/08/2015 ALDANAHORTENCIALY J [place] TECHNICIAN Ot 789.00 09/08/2015 Ot 733.13 09/08/2015 IJEOMA CHIU MD Ot 733.13 09/08/2015 IJEOMA CHIU MD Ot V72.63 09/08/2015 IJEOMA CHIU MD Ot V74.8 09/08/2015 IJEOMA CHIU MD Ot Z01.812 09/08/2015 KEISHA ARANDA, MARY Weinstein Ot 562.10 09/08/2015 KEISHA ARANDA, MARY Weinstein Ot 780.60 09/08/2015 KEISHA ARANDA, MARY Weinstein Ot 805.4 09/08/2015 KEISHA ARANDA, MARY Weinstein Ot E000.8 09/08/2015 KEISHA ARANDA, MARY Weinstein Ot E888.9 09/08/2015 ALDANAMELCHOR Tuan [place] TECHNICIAN Ot 557.1 09/08/2015 ALDANAMELCHOR J [place] TECHNICIAN Ot 562.10 09/08/2015 ALDANAMELCHOR J [place] TECHNICIAN Ot 787.3 09/08/2015 ALDANAHORTENCIALY J [place] TECHNICIAN Ot 787.91 09/08/2015 ALDANAHORTENCIALY J [place] TECHNICIAN Ot 789.00 09/08/2015 Ot 733.13 09/08/2015 IJEOMA CHIU MD Ot 733.13 09/08/2015 IJEOMA CHIU MD Ot V72.63 09/08/2015 IJEOMA CHIU MD Ot V74.8 09/08/2015 IJEOMA CHIU MD Ot Z01.812 09/08/2015 KEISHA ARANDA, MARY Weinstein Ot 562.10 09/08/2015 KEISHA ARANDA, MARY Weinstein Ot 780.60 10/28/2015 KEISHA ARANDA, MARY Weinstein Ot M12.9 ARTHROPATHY, UNSPECIFIED 10/28/2015 KEISHA ARANDA, MARY Weinstein Ot M48.06 SPINAL STENOSIS, LUMBAR REGION 10/28/2015 KEISHA ARANDA, MARY Weinstein Ot 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, 10/28/2015 KEISHA ARANDA, MARY Weinstein Ot M12.9 ARTHROPATHY, UNSPECIFIED 10/28/2015 KEISHA ARANDA, MARY Weinstein Ot M48.06 SPINAL STENOSIS, LUMBAR REGION 10/28/2015 KEISHA ARANDA, MARY Weinstein Ot 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, 10/28/2015 KEISHA ARANDA, MARY Weinstein Ot M12.9 ARTHROPATHY, UNSPECIFIED 10/28/2015 MARY VALDES MD Ot M48.06 SPINAL STENOSIS, LUMBAR REGION 10/28/2015 KEISHA ARANDA, MARY Weinstein Ot 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, 11/02/2015 KEISHA ARANDA, MARY Weinstein Ot 805.4 FX LUMBAR VERTEBRA-CLOSE 11/02/2015 KEISHA ARANDA, MARY Weinstein Ot E000.8 OTHER EXTERNAL CAUSE STATUS 11/02/2015 KEISHA ARANDA, MARY Js Ot E888.9 FALL NOS 11/02/2015 MELCHOR ALDANAP Ot 557.1 CHR VASC INSUFF INTEST 11/02/2015 MELCHOR ALDANA [place] TECHNICIAN Ot 562.10 DIVERTICULOSIS COLON (W/O MENT OF HEMORR 11/02/2015 MELCHOR ALDANA [place] TECHNICIAN Ot 787.3 FLATUL/ERUCTAT/GAS PAIN 11/02/2015 MELCHOR ALDANA [place] TECHNICIAN Ot 787.91 DIARRHEA 11/02/2015 MELCHOR ALDANA [place] TECHNICIAN Ot 789.00 ABDOMINAL PAIN, UNSPECIFIED SITE 11/02/2015 Ot 733.13 PATHOLOGIC FRACTURE, VERTEBRAE 11/02/2015 IJEOMA CHIU MD Ot 733.13 PATHOLOGIC FRACTURE, VERTEBRAE 11/02/2015 IJEOMA CHIU MD Ot V72.63 PRE-PROCEDURAL LABORATORY EXAMINATION 11/02/2015 IJEOMA CHIU MD Ot V74.8 SCREEN-BACTERIAL DIS NEC 11/02/2015 IJEOMA CHIU MD Ot Z01.812 ENCOUNTER FOR PREPROCEDURAL LABORATORY E 11/02/2015 KEISHA ARANDA, MARY Weinstein Ot 562.10 DIVERTICULOSIS COLON (W/O MENT OF HEMORR 11/02/2015 MARY VALDES MD Ot 780.60 FEVER, UNSPECIFIED 11/02/2015 MARY VALDES MD Ot M12.9 ARTHROPATHY, UNSPECIFIED 11/02/2015 KEISHA ARANDA, [...] Ot E888.9 FALL NOS 11/02/2015 MELCHOR ALDANA [place] TECHNICIAN Ot 557.1 CHR VASC INSUFF INTEST 11/02/2015 MELCHOR ALDANA [place] TECHNICIAN Ot 562.10 DIVERTICULOSIS COLON (W/O MENT OF HEMORR 11/02/2015 MELCHOR ALDANA [place] TECHNICIAN Ot 787.3 FLATUL/ERUCTAT/GAS PAIN 11/02/2015 MELCHOR ALDANA [place] TECHNICIAN Ot 787.91 DIARRHEA 11/02/2015 MELCHOR ALDANA [place] TECHNICIAN Ot 789.00 ABDOMINAL PAIN, UNSPECIFIED SITE [...] MD Ot E888.9 FALL NOS 11/25/2015 MELCHOR ALDANA [place] TECHNICIAN Ot 557.1 CHR VASC INSUFF INTEST 11/25/2015 MELCHOR ALDANA [place] TECHNICIAN Ot 562.10 DIVERTICULOSIS COLON (W/O MENT OF HEMORR 11/25/2015 MELCHOR ALDANA [place] TECHNICIAN Ot 787.3 FLATUL/ERUCTAT/GAS PAIN 11/25/2015 MELCHOR ALDANA [place] TECHNICIAN Ot 787.91 DIARRHEA 11/25/2015 MELCHOR ALDANA [place] TECHNICIAN Ot 789.00 ABDOMINAL PAIN, UNSPECIFIED SITE 11/25/2015 Ot 733.13 PATHOLOGIC FRACTURE, VERTEBRAE 11/25/2015 IJEOMA CHIU MD Ot 733.13 PATHOLOGIC FRACTURE, VERTEBRAE 11/25/2015 IJEOMA CHIU MD Ot V72.63 PRE-PROCEDURAL LABORATORY EXAMINATION 11/25/2015 IJEOMA CHUI MD Ot V74.8 SCREEN-BACTERIAL DIS NEC 11/25/2015 IJEOMA CHIU MD Ot Z01.812 ENCOUNTER FOR PREPROCEDURAL LABORATORY E 11/25/2015 MARY VALDES MD Ot 562.10 DIVERTICULOSIS COLON (W/O MENT OF HEMORR 11/25/2015 KEISHA ARANDA, MARY L Ot 780.60 FEVER, UNSPECIFIED 11/25/2015 KEISHA ARANDA, MARY L Ot M12.9 ARTHROPATHY, UNSPECIFIED 11/25/2015 KEISHA ARANDA, MARY Weinstein Ot M48.06 SPINAL STENOSIS, LUMBAR REGION 11/25/2015 KEISHA ARANDA, MARY Weinstein Ot 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, 12/04/2015 KEISHA ARANDA, MARY L Ot M12.9 ARTHROPATHY, UNSPECIFIED 12/04/2015 KEISHA ARANDA, MARY L Ot M48.06 SPINAL STENOSIS, LUMBAR REGION 12/04/2015 KEISHA ARANDA, MARY L Ot 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, 12/17/2015 KEISHA ARANDA, MARY Weinstein Ot M12.9 ARTHROPATHY, UNSPECIFIED 12/17/2015 KEISHA ARANDA, MARY L Ot M48.06 SPINAL STENOSIS, LUMBAR REGION 12/17/2015 KEISHA ARANDA, MARY L Ot 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, 12/31/2015 Ot 401.9 HYPERTENSION NOS 12/31/2015 Ot 401.9 HYPERTENSION NOS 12/31/2015 Ot 789.00 ABDOMINAL PAIN, UNSPECIFIED SITE 12/31/2015 KEISHA ARANDA, MARY L Ot 401.9 HYPERTENSION NOS 12/31/2015 KEISHA ARANDA, MARY Weinstein Ot 805.4 FX LUMBAR VERTEBRA-CLOSE 12/31/2015 KEISHA ARANDA, MARY L Ot E000.8 OTHER EXTERNAL CAUSE STATUS 12/31/2015 KEISHA ARANDA, MARY L Ot E888.9 FALL NOS 12/31/2015 MELCHOR ALDANA [place] TECHNICIAN Ot 557.1 CHR VASC INSUFF INTEST 12/31/2015 MELCHOR ALDANA [place] TECHNICIAN Ot 562.10 DIVERTICULOSIS COLON (W/O MENT OF HEMORR 12/31/2015 MELCHOR ALDANA [place] TECHNICIAN Ot 787.3 FLATUL/ERUCTAT/GAS PAIN 12/31/2015 MELCHOR ALDANA [place] TECHNICIAN Ot 787.91 DIARRHEA 12/31/2015 MELCHOR ALDANA [place] TECHNICIAN Ot 789.00 ABDOMINAL PAIN, UNSPECIFIED SITE [...] E000.8 OTHER EXTERNAL CAUSE STATUS 04/01/2016 KEISHA ARANAD, MARY Weinstein Ot E888.9 FALL NOS 04/01/2016 MELCHOR ALDANA [place] TECHNICIAN Ot 557.1 CHR VASC INSUFF INTEST 04/01/2016 MELCHOR ALDANA [place] TECHNICIAN Ot 562.10 DIVERTICULOSIS COLON (W/O MENT OF HEMORR 04/01/2016 MELCHOR ALDANA [place] TECHNICIAN Ot 787.3 FLATUL/ERUCTAT/GAS PAIN 04/01/2016 MELCHOR ALDANA [place] TECHNICIAN Ot 787.91 DIARRHEA 04/01/2016 MELCHOR ALDANA [place] TECHNICIAN Ot 789.00 ABDOMINAL PAIN, UNSPECIFIED SITE 04/01/2016 Ot 733.13 PATHOLOGIC FRACTURE, VERTEBRAE 04/01/2016 IJEOMA CHIU MD Ot 733.13 PATHOLOGIC FRACTURE, VERTEBRAE 04/01/2016 IJEOMA CHIU MD Ot V72.63 PRE-PROCEDURAL LABORATORY EXAMINATION 04/01/2016 IJEOMA CHIU MD Ot V74.8 SCREEN-BACTERIAL DIS NEC 04/01/2016 IJEOMA CHIU MD Ot Z01.812 ENCOUNTER FOR PREPROCEDURAL LABORATORY E 04/01/2016 KEISHA ARANDA, MARY Weinstein Ot 562.10 DIVERTICULOSIS COLON (W/O MENT OF HEMORR 04/01/2016 KEISHA ARANDA, MARY Weinstein Ot 780.60 FEVER, UNSPECIFIED 04/01/2016 KEISHA ARANDA, MARY Weinstein Ot M12.9 ARTHROPATHY, UNSPECIFIED 04/01/2016 KEISHA ARANDA, MARY Weinstein Ot M48.06 SPINAL STENOSIS, LUMBAR REGION 04/01/2016 KEISHA ARANDA, MARY Weinstein Ot 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, 04/01/2016 ELVI ARANDA, BELEN Dickerson Ot 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 RADICULO 04/01/2016 BELEN BOLES MD Ot 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 RADICULO 04/22/2016 ELVI ARANDA, BELEN Dickerson Ot 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 RADICULO 09/06/2016 KEISHA ARANDA, MARY Weinstein Ot 805.4 FX LUMBAR VERTEBRA-CLOSE 09/06/2016 MARY VALDES MD Ot E000.8 OTHER EXTERNAL CAUSE STATUS 09/06/2016 KEISHA ARANDA, MARY Weinstein Ot E888.9 FALL NOS 09/06/2016 MELCHOR ALDANA [place] TECHNICIAN Ot 557.1 CHR VASC INSUFF INTEST 09/06/2016 MELCHOR ALDANA [place] TECHNICIAN Ot 562.10 DIVERTICULOSIS COLON (W/O MENT OF HEMORR 09/06/2016 MELCHOR ALDANA [place] TECHNICIAN Ot 787.3 FLATUL/ERUCTAT/GAS PAIN 09/06/2016 MELCHOR ALDANA [place] TECHNICIAN Ot 787.91 DIARRHEA 09/06/2016 MELCHOR ALDANA [place] TECHNICIAN Ot 789.00 ABDOMINAL PAIN, UNSPECIFIED SITE 09/06/2016 Ot 733.13 PATHOLOGIC FRACTURE, VERTEBRAE 09/06/2016 IJEOMA CHIU MD Ot 733.13 PATHOLOGIC FRACTURE, VERTEBRAE 09/06/2016 IJEOMA CHIU MD Ot V72.63 PRE-PROCEDURAL LABORATORY EXAMINATION 09/06/2016 IJEOMA CHIU MD Ot V74.8 SCREEN-BACTERIAL DIS NEC 09/06/2016 IJEOMA CHIU MD Ot Z01.812 ENCOUNTER FOR PREPROCEDURAL LABORATORY E 09/06/2016 KEISHA ARANDA, MARY Weinstein Ot 562.10 DIVERTICULOSIS COLON (W/O MENT OF HEMORR 09/06/2016 KEISHA ARANDA, MARY Weinstein Ot 780.60 FEVER, UNSPECIFIED 09/06/2016 MARY VALDES MD Ot M12.9 ARTHROPATHY, UNSPECIFIED 09/06/2016 KEISHA ARANDA, MARY Weinstein Ot M48.06 SPINAL STENOSIS, LUMBAR REGION 09/06/2016 KEISHA ARANDA, MARY Weinstein Ot 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, 09/06/2016 ELVI ARANDA, BELEN Dickerson Ot 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 RADICULO 09/07/2016 KEISHA ARANDA, MARY Weinstein Ot K57.30 DVRTCLOS OF LG INT W/O PERFORATION OR AB 09/07/2016 MARY VALDES MD Ot K57.30 DVRTCLOS OF LG INT W/O PERFORATION OR AB 09/14/2016 MRAY VALDES MD Ot K57.30 DVRTCLOS OF LG INT W/O PERFORATION OR AB 09/21/2016 MARY VALDES MD Ot K57.30 DVRTCLOS OF [...] VALDES W I10 ESSENTIAL (PRIMARY) HYPERTENSION 08/07/2017 KEISHA ARANDA, MARY Weinstein Ot 805.4 FX LUMBAR VERTEBRA-CLOSE 08/07/2017 MARY VALDES MD Ot E000.8 OTHER EXTERNAL CAUSE STATUS 08/07/2017 KEISHA ARANDA, MARY Weinstein Ot E888.9 FALL NOS 08/07/2017 KATYAMARILUMELCHORFRANCISCO JAVIER TYSONP Ot 557.1 CHR VASC INSUFF INTEST 08/07/2017 MELCHOR ALDANAP Ot 562.10 DIVERTICULOSIS COLON (W/O MENT OF HEMORR 08/07/2017 MELCHOR ALDANAP Ot 787.3 FLATUL/ERUCTAT/GAS PAIN 08/07/2017 MELCHOR ALDANA [place] TECHNICIAN Ot 787.91 DIARRHEA 08/07/2017 MELCHOR ALDANAP Ot [...] ALDANA Ot 787.3 FLATUL/ERUCTAT/GAS PAIN 08/18/2017 MELCHOR ALDANAP [...] MARY Weinstein Ot 780.60 FEVER, UNSPECIFIED 08/18/2017 MARY VALDES MD Ot M12.9 ARTHROPATHY, UNSPECIFIED 08/18/2017 MARY VALDES MD Ot M48.06 SPINAL STENOSIS, LUMBAR REGION 08/18/2017 MARY VALDES MD Ot 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, 08/18/2017 [...] (W/O MENT OF HEMORR 08/21/2017 MELCHOR ALDANA [place] TECHNICIAN Ot 787.3 FLATUL/ERUCTAT/GAS PAIN 08/21/2017 MELCHOR ALDANA [place] TECHNICIAN Ot 787.91 DIARRHEA 08/21/2017 MELCHOR ALDANA [place] TECHNICIAN Ot 789.00 ABDOMINAL PAIN, UNSPECIFIED SITE 08/21/2017 Ot 733.13 PATHOLOGIC FRACTURE, VERTEBRAE 08/21/2017 IJEOMA CHIU MD Ot 733.13 PATHOLOGIC FRACTURE, VERTEBRAE 08/21/2017 IJEOMA CHIU MD Ot V72.63 PRE-PROCEDURAL LABORATORY EXAMINATION 08/21/2017 IJEOMA CHIU MD Ot V74.8 SCREEN-BACTERIAL DIS NEC 08/21/2017 IJEOMA HCIU MD Ot Z01.812 ENCOUNTER FOR PREPROCEDURAL LABORATORY [...] VALDES MD Ot 401.9 HYPERTENSION NOS 08/23/2017 KEISHA ARANDA, MARY Weinstein Ot 805.4 FX LUMBAR VERTEBRA-CLOSE 08/23/2017 MARY VALDES MD Ot E000.8 OTHER EXTERNAL CAUSE STATUS 08/23/2017 KEISHA ARANDA, MARY Weinstein Ot E888.9 FALL NOS 08/23/2017 MELCHOR ALDANAP Ot 557.1 CHR VASC INSUFF INTEST 08/23/2017 MELCHOR ALDANA [place] TECHNICIAN Ot 562.10 DIVERTICULOSIS COLON (W/O MENT OF HEMORR 08/23/2017 MELCHOR ALDANA [place] TECHNICIAN Ot 787.3 FLATUL/ERUCTAT/GAS PAIN 08/23/2017 MELCHOR ALDANA [place] TECHNICIAN Ot 787.91 DIARRHEA 08/23/2017 MELCHOR ALDANAP Ot 789.00 ABDOMINAL PAIN, UNSPECIFIED SITE 08/23/2017 [...] 729.82 CRAMP OF LIMB 10/16/2017 Reyna Thorpe W R25.2 CRAMP AND SPASM 10/16/2017 Maurilio, Reyna W 729.82 CRAMP OF LIMB 10/16/2017 Reyna Thorpe W R25.2 CRAMP AND SPASM 10/16/2017 Thorpe, Reyna W 729.82 CRAMP OF LIMB 10/16/2017 Reyna Thorpe W R25.2 CRAMP AND SPASM 10/18/2017 Ot 789.00 ABDOMINAL PAIN, UNSPECIFIED SITE 10/18/2017 BHAKTI PAINAGUA MD, Ot E87.1 HYPO-OSMOLALITY AND HYPONATREMIA 10/18/2017 BHAKTI PANIAGUA MD, Ot I10 ESSENTIAL (PRIMARY) HYPERTENSION 10/18/2017 BHAKTI PANIAGUA MD, Ot I16.0 HYPERTENSIVE URGENCY 10/18/2017 BHAKTI PANIAGUA MD, Ot K21.9 GASTRO-ESOPHAGEAL REFLUX DISEASE WITHOUT 10/18/2017 BHAKTI PANIAGUA MD, Ot R42 DIZZINESS AND GIDDINESS 10/18/2017 BHAKTI PANIAGUA MD Ot T48.3X5A ADVERSE EFFECT OF ANTITUSSIVES, INITIAL 10/18/2017 BHAKTI PANIAGUA MD Ot Z87.81 PERSONAL HISTORY OF (HEALED) TRAUMATIC [...] MARY VALDES 276.1 HYPOSMOLALITY AND/OR HYPONATREMIA 10/26/2017 RONALDO VALDESHEL A 401.0 MALIGNANT ESSENTIAL HYPERTENSION 10/26/2017 RONALDO VALDESHEL W E87.1 HYPO-OSMOLALITY AND HYPONATREMIA 10/26/2017 MARY VALDES I10 ESSENTIAL (PRIMARY) HYPERTENSION 2017 MAGNO FOLEY [...] ACQUIRED ABSENCE OF OTHER SPECIFIED PART 01/03/2018 CLEMENT RYAN R SILK SCREEN PRINTING RACKER Ot I10 ESSENTIAL (PRIMARY) HYPERTENSION 01/03/2018 RYAN VAUGHAN SILK SCREEN PRINTING RACKER Ot R61 GENERALIZED HYPERHIDROSIS 01/06/2018 MAGNO FOLEY APRN Ot I10 ESSENTIAL (PRIMARY) HYPERTENSION 01/06/2018 MAGNO FOLEY APRN Ot K21.9 GASTRO-ESOPHAGEAL REFLUX DISEASE WITHOUT 01/06/2018 MAGNO FOLEY APRN Ot Z87.19 PERSONAL HISTORY OF OTHER DISEASES OF 01/06/2018 MAGNO FOLEY SILK SCREEN PRINTING RACKER Ot Z88.8 ALLERGY STATUS TO OTH DRUG/MEDS/BIOL SUB 01/06/2018 MAGNO FOLEY SILK SCREEN PRINTING RACKER Ot 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 OF OTHER ORGANS 01/08/2018 MAGNO FOLEY SILK SCREEN PRINTING RACKER Ot I10 ESSENTIAL (PRIMARY) HYPERTENSION 01/08/2018 MAGNO FOLEY SILK SCREEN PRINTING RACKER Ot K21.9 GASTRO-ESOPHAGEAL REFLUX DISEASE WITHOUT 01/08/2018 MAGNO FOLEY APRN Ot Z87.19 PERSONAL HISTORY OF OTHER DISEASES OF 01/08/2018 MAGNO FOLEY SILK SCREEN PRINTING RACKER Ot Z88.8 ALLERGY STATUS TO OTH DRUG/MEDS/BIOL SUB 01/08/2018 MAGNO FOLEY APRN Ot 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 [...] I10 ESSENTIAL (PRIMARY) HYPERTENSION 02/06/2018 NELI MCBRIDE [place] TECHNICIAN Ot I10 ESSENTIAL (PRIMARY) HYPERTENSION 02/07/2018 KEISHA ARANDA, MARY Weinstein Ot 805.4 FX LUMBAR VERTEBRA-CLOSE 02/07/2018 MARY VALDES MD Ot E000.8 OTHER EXTERNAL CAUSE STATUS 02/07/2018 MARY VALDES MD Ot E888.9 FALL NOS 02/07/2018 MELCHOR ALDANA [place] TECHNICIAN Ot 557.1 CHR VASC INSUFF INTEST 02/07/2018 MELCHOR ALDANA Tuan TYSONP Ot 562.10 DIVERTICULOSIS COLON (W/O MENT OF HEMORR 02/07/2018 MELCHOR ALDANA [place] TECHNICIAN Ot 787.3 FLATUL/ERUCTAT/GAS PAIN 02/07/2018 MELCHOR ALDANA [place] TECHNICIAN Ot 787.91 DIARRHEA 02/07/2018 MELCHOR ALDANA [place] TECHNICIAN Ot 789.00 ABDOMINAL PAIN, UNSPECIFIED SITE [...] DIVERTICULOSIS COLON (W/O MENT OF HEMORR 02/07/2018 KEISHA ARANDA, MARY Weinstein Ot 780.60 FEVER, UNSPECIFIED 02/07/2018 MARY VALDES [...] NOT CARRIED OUT 02/07/2018 RYAN VAUGHAN SILK SCREEN PRINTING RACKER Ot I10 ESSENTIAL (PRIMARY) HYPERTENSION 02/07/2018 RYAN VAUGHAN SILK SCREEN PRINTING RACKER Ot R61 GENERALIZED HYPERHIDROSIS 02/07/2018 NELI MCBRIDE [place] TECHNICIAN Ot I10 ESSENTIAL (PRIMARY) HYPERTENSION 02/07/2018 MARY VALDES MD Ot 805.4 FX LUMBAR VERTEBRA-CLOSE 02/07/2018 KEISHA ARANDA, MARY Weinstein Ot E000.8 OTHER EXTERNAL CAUSE STATUS 02/07/2018 KEISHA ARANDA, MARY Weinstein Ot E888.9 FALL NOS 02/07/2018 MELCHOR ALDANA [place] TECHNICIAN Ot 557.1 CHR VASC INSUFF INTEST 02/07/2018 MELCHOR ALDANA [place] TECHNICIAN Ot 562.10 DIVERTICULOSIS COLON (W/O MENT OF HEMORR 02/07/2018 MELCHOR ALDANA [place] TECHNICIAN Ot 787.3 FLATUL/ERUCTAT/GAS PAIN 02/07/2018 MELCHOR ALDANA [place] TECHNICIAN Ot 787.91 DIARRHEA 02/07/2018 MELCHOR ALDANAP Ot 789.00 ABDOMINAL PAIN, UNSPECIFIED SITE 02/07/2018 [...] DIVERTICULOSIS COLON (W/O MENT OF HEMORR 02/07/2018 KEISHA ARANDA, MARY Weinstein Ot 780.60 FEVER, UNSPECIFIED 02/07/2018 MARY VALDES [...] PROCEDURE AND TREATMENT NOT CARRIED OUT 02/07/2018 CLEMENT, RYAN R SILK SCREEN PRINTING RACKER Ot I10 ESSENTIAL (PRIMARY) HYPERTENSION 02/07/2018 RYAN VAUGHAN R SILK SCREEN PRINTING RACKER Ot R61 GENERALIZED HYPERHIDROSIS 02/07/2018 NELI MCBRIDE [place] TECHNICIAN Ot I10 ESSENTIAL (PRIMARY) HYPERTENSION 02/08/2018 GINGER ARANDA FACC, ALI FACP CCDS Ot I10 ESSENTIAL (PRIMARY) HYPERTENSION 02/08/2018 GINGER ARANDA FACC, ALI FACP CCDS Ot R00.2 PALPITATIONS 02/08/2018 GINGER ARANDA FACC, ALI FACP CCDS Ot R06.02 SHORTNESS OF BREATH 02/09/2018 GINGER ARANDA FACC, ALI FACP CCDS Ot I10 ESSENTIAL (PRIMARY) HYPERTENSION 02/09/2018 GINGER ARANDA FACC, ALI FACP CCDS Ot R00.2 PALPITATIONS 02/09/2018 GINGER ARANDA FACC, ALI FACP CCDS Ot R06.02 SHORTNESS OF BREATH 02/15/2018 FREDDIE, DONALD L SILK SCREEN PRINTING RACKER Ot E78.5 HYPERLIPIDEMIA, UNSPECIFIED 02/15/2018 FREDDIE, DONALD L SILK SCREEN PRINTING RACKER Ot F41.1 GENERALIZED ANXIETY DISORDER 02/15/2018 FREDDIE, DONALD L SILK SCREEN PRINTING RACKER Ot I10 ESSENTIAL (PRIMARY) HYPERTENSION 02/15/2018 FREDDIE, DONALD L SILK SCREEN PRINTING RACKER Ot M79.1 MYALGIA 02/15/2018 FREDDIE, DONALD L SILK SCREEN PRINTING RACKER Ot R42 DIZZINESS AND GIDDINESS 02/15/2018 FREDDIE, DONALD L SILK SCREEN PRINTING RACKER Ot R53.83 OTHER FATIGUE 02/21/2018 GINGER ARANDA FACC, MIQUEL FACP CCDS Ot I10 ESSENTIAL (PRIMARY) HYPERTENSION 02/21/2018 GINGER BARTHC, ALI FACP CCDS Ot R00.2 PALPITATIONS 02/21/2018 GINGER ARANDA FACC, ALI FACP CCDS Ot R06.02 SHORTNESS OF BREATH 02/21/2018 GINGER BARTHC, ALI FACP CCDS Ot I10 ESSENTIAL (PRIMARY) HYPERTENSION 02/21/2018 GINGER ARANDA FACC, ALI FACP CCDS Ot R00.2 PALPITATIONS 02/21/2018 GINGER ARANDA FACC, ALI FACP CCDS Ot R06.02 SHORTNESS OF BREATH 02/21/2018 FREDDIE, DONALD Weinstein SILK SCREEN PRINTING RACKER Ot E78.5 HYPERLIPIDEMIA, UNSPECIFIED 02/21/2018 FREDDIE, DONALD L SILK SCREEN PRINTING RACKER Ot F41.1 GENERALIZED ANXIETY DISORDER 02/21/2018 DONALD FRAZIER SILK SCREEN PRINTING RACKER Ot I10 ESSENTIAL (PRIMARY) HYPERTENSION 02/21/2018 DONALD FRAZIER SILK SCREEN PRINTING RACKER Ot M79.1 MYALGIA 02/21/2018 DONALD FRAZIER SILK SCREEN PRINTING RACKER Ot R42 DIZZINESS AND GIDDINESS 02/21/2018 DONALD FRAZIER SILK SCREEN PRINTING RACKER Ot R53.83 OTHER FATIGUE 02/28/2018 KEISHA ARANDA, MARY Weinstein Ot 805.4 FX LUMBAR VERTEBRA-CLOSE 02/28/2018 MARY VALDES MD Ot E000.8 OTHER EXTERNAL CAUSE STATUS 02/28/2018 MARY VALDES MD Ot E888.9 FALL NOS 02/28/2018 MELCHOR ALDANA [place] TECHNICIAN Ot 557.1 CHR VASC INSUFF INTEST 02/28/2018 MELCHOR ALDANA [place] TECHNICIAN Ot 562.10 DIVERTICULOSIS COLON (W/O MENT OF HEMORR 02/28/2018 MELCHOR ALDANA [place] TECHNICIAN Ot 787.3 FLATUL/ERUCTAT/GAS PAIN 02/28/2018 MELCHOR ALDANA WETLANDS TECHNICIAN Ot 787.91 DIARRHEA 02/28/2018 MELCHOR ALDANA WETLANDS TECHNICIAN Ot 789.00 ABDOMINAL PAIN, UNSPECIFIED SITE 02/28/2018 Ot 733.13 PATHOLOGIC FRACTURE, VERTEBRAE 02/28/2018 APPLE ARANDA, IJEOMA Dickerson Ot 733.13 PATHOLOGIC FRACTURE, VERTEBRAE 02/28/2018 IJEOMA CHIU MD Ot V72.63 PRE-PROCEDURAL LABORATORY EXAMINATION 02/28/2018 IJEOMA CHIU MD Ot V74.8 SCREEN-BACTERIAL DIS NEC 02/28/2018 IJEOMA CHIU MD Ot Z01.812 ENCOUNTER FOR PREPROCEDURAL LABORATORY E 02/28/2018 MARY VALDES MD Ot 562.10 DIVERTICULOSIS COLON (W/O MENT OF HEMORR 02/28/2018 MARY VALDES MD Ot 780.60 FEVER, UNSPECIFIED 02/28/2018 MARY VALDES MD Ot M12.9 ARTHROPATHY, UNSPECIFIED 02/28/2018 MARY VALDES MD Ot M48.06 SPINAL STENOSIS, LUMBAR REGION 02/28/2018 MARY VALDES MD Ot 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, 02/28/2018 ELVI ARANDA, BELEN Dickerson Ot 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 RADICULO 02/28/2018 KEISHA ARANDA, MARY Weinstein Ot K57.30 DVRTCLOS OF LG INT W/O PERFORATION OR AB 02/28/2018 KEISHA ARANDA, MARY Weinstein Ot M54.12 RADICULOPATHY, CERVICAL REGION 02/28/2018 KEISHA ARANDA, MARY Weinstein Ot Z53.8 PROCEDURE AND TREATMENT NOT CARRIED OUT 02/28/2018 RYAN VAUGHAN R SILK SCREEN PRINTING RACKER Ot I10 ESSENTIAL (PRIMARY) HYPERTENSION 02/28/2018 RYAN VAUGHAN R SILK SCREEN PRINTING RACKER Ot R61 GENERALIZED HYPERHIDROSIS 02/28/2018 NELI MCBRIDE [place]ET[place]S TECHNICIAN Ot I10 ESSENTIAL (PRIMARY) HYPERTENSION 02/28/2018 [...] OF BREATH 02/28/2018 FREDDIE, DONALD L SILK SCREEN PRINTING RACKER Ot E78.5 HYPERLIPIDEMIA, UNSPECIFIED 02/28/2018 FREDDIE, DONALD L SILK SCREEN PRINTING RACKER Ot F41.1 GENERALIZED ANXIETY DISORDER 02/28/2018 FREDDIE, DONALD L SILK SCREEN PRINTING RACKER Ot I10 ESSENTIAL (PRIMARY) HYPERTENSION 02/28/2018 FREDDIE, DONALD L SILK SCREEN PRINTING RACKER Ot M79.1 MYALGIA 02/28/2018 FREDDIE, DONALD L SILK SCREEN PRINTING RACKER Ot R42 DIZZINESS AND GIDDINESS 02/28/2018 FREDDIE, DONALD L SILK SCREEN PRINTING RACKER Ot R53.83 OTHER FATIGUE 03/05/2018 MARTA ARANDA, BRITTNY Tapia Ot R53.83 OTHER FATIGUE 03/05/2018 KEISHA ARANDA, MARY Weinstein Ot 805.4 FX LUMBAR VERTEBRA-CLOSE 03/05/2018 KEISHA ARANDA, MARY Weinstein Ot E000.8 OTHER EXTERNAL CAUSE STATUS 03/05/2018 KEISHA ARANDA, MARY Weinstein Ot E888.9 FALL NOS 03/05/2018 MELCHOR ALDANA Tuan TYSONP Ot 557.1 CHR VASC INSUFF INTEST 03/05/2018 MARILU ALDANAFRANCISCO JAVIER VOGT Ot 562.10 DIVERTICULOSIS COLON (W/O MENT OF HEMORR 03/05/2018 MELCHOR ALDANA WETLANDS TECHNICIAN Ot 787.3 FLATUL/ERUCTAT/GAS PAIN 03/05/2018 MELCHOR ALDANA [employer]ET[place]S TECHNICIAN Ot 787.91 DIARRHEA 03/05/2018 MARILU ALDANAFRANCISCO JAVIER TYSONP Ot 789.00 ABDOMINAL PAIN, UNSPECIFIED SITE 03/05/2018 [...] MARY Weinstein Ot 780.60 FEVER, UNSPECIFIED 03/05/2018 MARY VALDES MD Ot M12.9 ARTHROPATHY, UNSPECIFIED 03/05/2018 MARY VALDES MD Ot M48.06 SPINAL STENOSIS, LUMBAR REGION 03/05/2018 MARY VALDES MD Ot 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, 03/05/2018 BELEN BOLES MD Ot 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 RADICULO 03/05/2018 MARY VALDES MD Ot K57.30 DVRTCLOS OF LG INT W/O PERFORATION OR AB 03/05/2018 MARY VALDES MD Ot M54.12 RADICULOPATHY, CERVICAL REGION 03/05/2018 MARY VALDES MD Ot Z53.8 PROCEDURE AND TREATMENT NOT CARRIED OUT 03/05/2018 RYAN VAUGHAN SILK SCREEN PRINTING RACKER Ot I10 ESSENTIAL (PRIMARY) HYPERTENSION 03/05/2018 CLEMENT, RYAN R SILK SCREEN PRINTING RACKER Ot R61 GENERALIZED HYPERHIDROSIS 03/05/2018 NELI MCBRIDE [place]ET[place] TECHNICIAN Ot I10 ESSENTIAL (PRIMARY) HYPERTENSION 03/05/2018 GINGER ARANDA FAC, ALI FACP CCDS Ot I10 ESSENTIAL (PRIMARY) HYPERTENSION 03/05/2018 GINGER ARANDA FAC, ALI FACP CCDS Ot R00.2 PALPITATIONS 03/05/2018 GINGER ARANDA FAC, ALI FACP CCDS Ot R06.02 SHORTNESS OF BREATH 03/05/2018 GINGER ARANDA [facility], ALI FACP CCDS Ot I10 ESSENTIAL (PRIMARY) HYPERTENSION 03/05/2018 GINGER ARANDA [facility], ALI FACP CCDS Ot R00.2 PALPITATIONS 03/05/2018 GINGER ARANDA [facility], ALI FACP CCDS Ot R06.02 SHORTNESS OF BREATH 03/05/2018 FREDDIE, DONALD L SILK SCREEN PRINTING RACKER Ot E78.5 HYPERLIPIDEMIA, UNSPECIFIED 03/05/2018 FREDDIE, DONALD L SILK SCREEN PRINTING RACKER Ot F41.1 GENERALIZED ANXIETY DISORDER 03/05/2018 FREDDIE, DONALD L SILK SCREEN PRINTING RACKER Ot I10 ESSENTIAL (PRIMARY) HYPERTENSION 03/05/2018 FREDDIE, DONALD L SILK SCREEN PRINTING RACKER Ot M79.1 MYALGIA 03/05/2018 FREDDIE, DONALD L SILK SCREEN PRINTING RACKER Ot R42 DIZZINESS AND GIDDINESS 03/05/2018 FREDDIE, DONALD L SILK SCREEN PRINTING RACKER Ot R53.83 OTHER FATIGUE 03/05/2018 MARTA ARANDA, [...] Z87.891 PERSONAL HISTORY OF NICOTINE DEPENDENCE 03/06/2018 ARCELIA ARANDA, BHAKTI Chavis Ot Z88.8 ALLERGY STATUS TO [facility] DRUG/MEDS/BIOL SUB 03/06/2018 ARCELIA ARANDA, BHAKTI Chavis Ot 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 OF OTHER ORGANS 03/06/2018 KEISHA ARANDA, MARY Weinstein Ot 805.4 FX LUMBAR VERTEBRA-CLOSE 03/06/2018 MARY VALDES MD Ot E000.8 OTHER EXTERNAL CAUSE STATUS 03/06/2018 MARY VALDES MD Ot E888.9 FALL NOS 03/06/2018 MELCHOR ALDANA [place]ET[place] TECHNICIAN Ot 557.1 CHR VASC INSUFF INTEST 03/06/2018 MELCHOR ALDANA [place] TECHNICIAN Ot 562.10 DIVERTICULOSIS COLON (W/O MENT OF HEMORR 03/06/2018 MELCHOR ALDANA WET[place] TECHNICIAN Ot 787.3 FLATUL/ERUCTAT/GAS PAIN 03/06/2018 MELCHOR ALDANA WET[place] TECHNICIAN Ot 787.91 DIARRHEA 03/06/2018 MELCHOR ALDANA [place] TECHNICIAN Ot 789.00 ABDOMINAL PAIN, UNSPECIFIED SITE 03/06/2018 [...] 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 RADICULO 03/06/2018 KEISHA ARANDA, MARY Weinstein Ot K57.30 DVRTCLOS OF LG INT W/O PERFORATION OR AB 03/06/2018 KEISHA ARANDA, MARY Weinstein Ot M54.12 RADICULOPATHY, CERVICAL REGION 03/06/2018 MARY VALDES MD Ot Z53.8 PROCEDURE AND TREATMENT NOT CARRIED OUT 03/06/2018 RYAN VAUGHAN SILK SCREEN PRINTING RACKER Ot I10 ESSENTIAL (PRIMARY) HYPERTENSION 03/06/2018 RYAN VAUGHAN SILK SCREEN PRINTING RACKER Ot R61 GENERALIZED HYPERHIDROSIS 03/06/2018 NELI MCBRIDE [place]ET[place] TECHNICIAN Ot I10 ESSENTIAL (PRIMARY) HYPERTENSION 03/06/2018 [...] SHORTNESS OF BREATH 03/06/2018 FREDDIE, DONALD L SILK SCREEN PRINTING RACKER Ot E78.5 HYPERLIPIDEMIA, UNSPECIFIED 03/06/2018 FREDDIE, DONALD L SILK SCREEN PRINTING RACKER Ot F41.1 GENERALIZED ANXIETY DISORDER 03/06/2018 FREDDIE, DONALD L SILK SCREEN PRINTING RACKER Ot I10 ESSENTIAL (PRIMARY) HYPERTENSION 03/06/2018 FREDDIE, DONALD L SILK SCREEN PRINTING RACKER Ot M79.1 MYALGIA 03/06/2018 FREDDIE, DONALD L SILK SCREEN PRINTING RACKER Ot R42 DIZZINESS AND GIDDINESS 03/06/2018 FREDDIE, DONALD L SILK SCREEN PRINTING RACKER Ot R53.83 OTHER FATIGUE 03/06/2018 BRITTNY LOZANO MD Ot R53.83 OTHER FATIGUE 03/06/2018 BRITTNY LOZANO MD Ot R53.83 OTHER FATIGUE 03/06/2018 ARCELIA ARANDA, BHAKTI Chavis Ot E87.1 HYPO-OSMOLALITY AND HYPONATREMIA 03/06/2018 BHAKTI [...] PERSONAL HISTORY OF OTHER DISEASES OF TH 03/08/2018 BHAKTI PANIAGUA MD Ot Z87.891 PERSONAL HISTORY OF NICOTINE DEPENDENCE 03/08/2018 BHAKTI PANIAGUA MD Ot Z88.8 ALLERGY STATUS TO [facility] DRUG/MEDS/BIOL SUB 03/08/2018 BHAKTI PANIAGUA MD Ot 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 OF OTHER ORGANS 03/14/2018 MARTA ARANDA, BRITTNY Tapia Ot R53.83 OTHER FATIGUE 03/16/2018 GINGER ARANDA FACC, MIQUEL BARTHP CCDS Ot I10 ESSENTIAL (PRIMARY) HYPERTENSION 03/16/2018 GINGER ARANDA FAC, ALI [facility] CCDS Ot R00.2 PALPITATIONS 03/16/2018 GINGER ARANDA FAC, ALI [facility] CCDS Ot R06.02 SHORTNESS OF BREATH 03/20/2018 [...] Ot Z72.89 OTHER PROBLEMS RELATED TO LIFESTYLE 04/10/2018 Ot 789.00 ABDOMINAL PAIN, UNSPECIFIED SITE 04/12/2018 NING RIOS MD Ot A21.9 TULAREMIA, UNSPECIFIED 04/12/2018 NING RIOS MD Ot F41.9 ANXIETY DISORDER, UNSPECIFIED 04/12/2018 NING RIOS MD Ot I10 ESSENTIAL (PRIMARY) HYPERTENSION 04/12/2018 NING RIOS MD Ot K21.9 GASTRO-ESOPHAGEAL REFLUX DISEASE WITHOUT 04/12/2018 NING RIOS MD Ot R42 DIZZINESS AND GIDDINESS 04/12/2018 NING RIOS MD Ot R53.83 OTHER FATIGUE 04/12/2018 NING RIOS MD Ot Z87.19 PERSONAL HISTORY OF OTHER DISEASES OF TH 04/12/2018 NING RIOS MD Ot Z87.891 PERSONAL HISTORY OF NICOTINE DEPENDENCE 04/12/2018 NING RIOS MD Ot Z88.2 ALLERGY STATUS TO SULFONAMIDES STATUS 04/12/2018 NING RIOS MD Ot Z88.8 ALLERGY STATUS TO [facility] DRUG/MEDS/BIOL SUB 04/12/2018 NING RIOS MD Ot 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 OF OTHER ORGANS 05/02/2018 KAREN DEJESUS DO Ot I10 ESSENTIAL (PRIMARY) HYPERTENSION 05/02/2018 KAREN DEJESUS DO Ot G47.33 OBSTRUCTIVE SLEEP APNEA (ADULT) (PEDIATR Procedures There is no data. Results Test Result Range [facility] - 07/06/16 09:05 Anion Gap 16 [...] 0.8 mg/dL 0.2-1.2 TP 7.2 g/dL 6.0-8.3 [facility] - 06/13/17 10:30 Anion Gap 14 [...] rickettsii IgG antibody assay (units/volume) < <1:16 Olyphant spotted fever panel < <1:10 Francisella tularensis [...] in serum or plasma 3.81 % 0.00-4.00 Bacterial blood culture - 04/10/18 16:03 Bacterial blood culture NG NRG Complete blood count (CBC) with automated white blood cell (WBC) differential - 04/10/18 17:42 Blood leukocytes automated count (number/volume) 9.1 10*3/uL 4.3-11.0 Blood erythrocytes automated count (number/volume) 3.73 10*6/uL 4.35-5.85 Venous blood hemoglobin measurement (mass/volume) 11.7 g/dL 13.3-17.7 Blood hematocrit (volume fraction) 33 % 40-54 Automated erythrocyte mean corpuscular volume 89 [foz_us] 80-99 Automated erythrocyte mean corpuscular hemoglobin (mass per erythrocyte) 31 pg 25-34 Automated erythrocyte mean corpuscular hemoglobin concentration measurement ( mass/volume) 36 g/dL 32-36 Automated erythrocyte distribution width ratio 14.3 % 10.0-14.5 Automated blood platelet count (count/volume) 294 10*3/uL 130-400 Automated blood platelet mean volume measurement 10.4 [foz_us] 7.4-10.4 Automated blood neutrophils/100 leukocytes 74 % 42-75 Automated blood lymphocytes/100 leukocytes 13 % 12-44 Blood monocytes/100 leukocytes 7 % 0-12 Automated blood eosinophils/100 leukocytes 6 % 0-10 Automated blood basophils/100 leukocytes 0 % 0-10 Blood neutrophils automated count (number/volume) 6.7 10*3 1.8-7.8 Blood lymphocytes automated count (number/volume) 1.2 10*3 1.0-4.0 Blood monocytes automated count (number/volume) 0.7 10*3 0.0-1.0 Automated eosinophil count 0.6 10*3/uL 0.0-0.3 Automated blood basophil count (count/volume) 0.0 10*3/uL 0.0-0.1 Bacterial blood culture - 04/10/18 17:42 Bacterial blood culture [facility] Influenza virus A and B antigen detection - 04/10/18 17:50 FLU RESULT NEGATIVE FOR INFLUENZA A AND B ANTIGENS BY [facility] PT panel in platelet poor plasma by coagulation assay - 04/10/18 18:03 Prothrombin time (PT) in platelet poor plasma by coagulation assay 12.5 s 12.2-14.7 INR in platelet poor plasma or blood by coagulation assay 0.9 0.8-1.4 Activated partial thromboplastin time (aPTT) in platelet poor plasma bycoagulation assay - 04/10/18 18:03 Activated partial thromboplastin time (aPTT) in platelet poor plasma bycoagulation assay 35 s 24-35 Blood lactic acid measurement (moles/volume) - 04/10/18 18:03 Blood lactic acid measurement (moles/volume) 1.70 mmol/L 0.50-2.00 Comprehensive metabolic panel - 04/10/18 18:03 Serum or plasma sodium measurement (moles/volume) 133 mmol/L 135-145 Serum or plasma potassium measurement (moles/volume) 3.6 mmol/L 3.6-5.0 Serum or plasma chloride measurement (moles/volume) 100 mmol/L 98-107 Carbon dioxide 24 mmol/L 21-32 Serum or plasma anion gap determination (moles/volume) 9 mmol/L 5-14 Serum or plasma urea nitrogen measurement (mass/volume) 9 mg/dL 7-18 Serum or plasma creatinine measurement (mass/volume) 0.81 mg/dL 0.60-1.30 Serum or plasma urea nitrogen/creatinine mass ratio 11 NRG Serum or plasma creatinine measurement with calculation of estimated glomerular filtration rate > NRG Serum or plasma glucose measurement (mass/volume) 110 mg/dL 70-105 Serum or plasma calcium measurement (mass/volume) 9.4 mg/dL 8.5-10.1 Serum or plasma total bilirubin measurement (mass/volume) 0.8 mg/dL 0.1-1.0 Serum or plasma alkaline phosphatase measurement (enzymatic activity/volume) 56 U/L 40-136 Serum or plasma aspartate aminotransferase measurement (enzymatic activity/ volume) 14 U/L 5-34 Serum or plasma alanine aminotransferase measurement (enzymatic activity/volume ) 20 U/L 0-55 Serum or plasma protein measurement (mass/volume) 6.5 g/dL 6.4-8.2 Serum or plasma albumin measurement (mass/volume) 4.1 g/dL 3.2-4.5 CALCIUM CORRECTED 9.3 mg/dL 8.5-10.1 Complete urinalysis with reflex to culture - 04/10/18 18:09 Urine color determination YELLOW NRG Urine clarity determination CLEAR NRG Urine pH measurement by test strip 7 5-9 Specific gravity of urine by test strip 1.010 1.016- 1.022 Urine protein assay by test [...] count by microscopy (number/high power field ) NONE NRG Bacteria detection in urine sediment by light microscopy NONE NRG Squamous epithelial cells detection in urine sediment by light microscopy RARE NRG Crystals detection in urine sediment by light microscopy NONE NRG Casts detection in urine sediment by light microscopy NONE NRG Mucus detection in urine sediment by light microscopy NEGATIVE NRG Complete urinalysis with reflex to culture NO NRG Bacterial urine culture - 04/10/18 18:09 Bacterial urine culture NG NRG Urine 5-hydroxyindoleacetate measurement (mass/volume) - 04/30/18 17:37 Urine collection time duration 0 % NRG Urine volume measurement 0 % NRG Confirmatory urine 5-hydroxyindole acetic acid (5-HIAA) measurement (mass/ volume) 4.3 % NRG 24 hour urine serotonin measurement (mass/time) 4 mg/g{Cre} 0-14 Interpretation of urine 5-hydroxyindole acetic acid (HIAA) measurement See Note NRG Creatinine measurement (moles/volume) 112 % NRG Urine 5-hydroxyindoleacetate measurement (mass/volume) Not Applicable 0-15 Urine 5-hydroxyindoleacetate/creatinine mass ratio Not Applicable 800-2100 Urine catecholamines measurement (mass/volume) - 04/30/18 17:37 Urine epinephrine measurement (mass/volume) Not Applicable % 1-7 Urine norepinephrine measurement (mass/volume) Not Applicable % 16-71 24 hour urine dopamine measurement (mass/time) Not Applicable 77-324 Urine catecholamines interpretation narrative See Note NRG Dopamine/creatinine [mass ratio] in urine 235 ug/g{Cre} 0 -250 24 hour urine norepinephrine/creatinine mass ratio 29 ug/g{Cre} 0-45 24 hour urine epinephrine/creatinine mass ratio 5 ug/g{Cre} 0-20 Dopamine [Mass/volume] in Urine 263 % NRG 24 hour urine cortisol free measurement (mass/volume) - 04/30/18 17:37 Urine creatinine measurement (mass/volume) 111 % NRG 24 hour urine creatinine measurement (mass/time) Not Applicable 800-2100 Urine collection time duration 0 % NRG Urine volume measurement 0 % NRG Urine cortisol free measurement (mass/volume) Not Applicable <=60.0 24 hour urine free cortisol measurement by radioimmunoassay (mass/time) 8.31 % NRG Urine cortisol/creatinine ratio 7.49 ug/g{Cre} NRG Cortisol [interpretation] in serum or plasma--1 hour post dose corticotropin See Note NRG Urine vanillylmandelate measurement (mass/volume) - 04/30/18 17:37 [id number] See Note mg/g{Cre} NRG Serum ragweed IgE antibody assay 111 % NRG 24 hour urine creatinine measurement (mass/volume) Not Applicable 800-2100 Urine volume measurement 0 % NRG Urine vanillylmandelate measurement (mass/volume) 2.7 % NRG Encounters ACCT No. Visit Date/Time Discharge Status Pt. Type Provider Facility Loc./Unit Complaint [id number] 05/01/2018 08:45:00 05/01/2018 09:15:00 DIS Outpatient KAREN DEJESUS DO [facility] SLEEP TIAGO [id number] 04/30/2018 17:20:00 04/30/2018 23:59:59 CLS Outpatient KAREN DEJESUS DO [facility] LAB URIOLE [id number] 04/10/2018 17:00:00 04/10/2018 19:19:00 DIS Outpatient NING RIOS MD [facility] ER SHAKEY, SLEEPY, UPPER BODY HOT, LIGHTHEADED [id number] 03/16/2018 10:36:00 03/16/2018 23:59:59 CLS Outpatient KAREN DEJESUS DO [facility] LAB Z72.89 [id number] 03/06/2018 18:15:00 03/06/2018 22:53:00 DIS Emergency BHAKTI PANIAGUA MD [facility] ER ELEVATED BP,WEAKNESS [id number] 03/05/2018 23:10:00 03/06/2018 01:15:00 DIS Emergency BHAKTI PANIAGUA MD [facility] ER ARRHYTHMIA,NAUSEA [id number] 03/01/2018 07:42:00 03/01/2018 23:59:59 CLS Outpatient BRITTNY LOZANO MD [facility] LAB LOW TESTOSTERONE SYMPTOMS ,FATIGUE [id number] 02/09/2018 16:42:00 02/09/2018 23:59:59 CLS Outpatient DONALD FRAZIER APRN [facility] LAB FATIGUE;DIZZINESS; HYPERTENSION;LIGHTHEADED;MYALGIA [id number] 02/08/2018 07:39:00 02/08/2018 23:59:59 CLS Outpatient GINGER ARANDA FACC, MIQUEL NAZARIO CCDS [facility] CARD PALPITATIONS, SOB,HTN [id number] 02/06/2018 11:02:00 02/06/2018 23:59:59 CLS Outpatient GINGER ARANDA FACC, MIQUEL NAZARIO CCDS [facility] CARD PALPITATIONS, SOB,HTN [id number] 01/08/2018 14:03:00 01/08/2018 23:59:59 CLS Preadmit NELI MCBRIDE [place] TECHNICIAN [facility] RAD HTN [id number] 01/08/2018 13:57:00 01/08/2018 23:59:59 CLS Outpatient NELI MCBRIDE [place] TECHNICIAN [facility] CARD HTN [id number] 01/06/2018 14:58:00 01/06/2018 16:10:00 DIS Emergency MAGNO FOLEY APRN [facility] ER ELEV BP [id number] 12/23/2017 08:59:00 12/23/2017 10:05:00 DIS Emergency JOHNNIE DOGABRIELA K [facility] ER HIGH BLOOD PRESSURE, NAUSEA [id number] 2017 09:34:00 2017 23:59:59 CLS Outpatient RYAN VAUGHAN SILK SCREEN PRINTING RACKER [facility] CARD HTN,DIAPHORESIS [id number] 2017 17:29:00 2017 19:07:00 DIS Emergency MANGO FOLEY SILK SCREEN PRINTING RACKER [facility] ER HIGH BP [id number] 10/18/2017 19:08:00 10/18/2017 22:50:00 DIS Emergency BHAKTI PANIAGUA MD [facility] ER HIGH BP [id number] 08/21/2017 12:37:00 08/21/2017 23:59:59 CLS Outpatient MARY VALDES MD [facility] RAD CERVICALGIA [id number] 09/06/2016 09:37:00 09/06/2016 23:59:59 CLS Outpatient MARY VALDES MD [facility] RAD DIVERTICULITIS [id number] 04/01/2016 07:19:00 04/01/2016 08:15:00 DIS Outpatient BELEN BOLES MD [facility] CARD DISC DISORER [id number] 12/25/2015 08:37:00 12/25/2015 23:59:59 CLS Outpatient BELEN BOLES MD [facility] CARD DISC DISORDER W/ RADICULOPATHY [id number] 10/27/2015 08:58:00 10/27/2015 23:59:59 CLS Outpatient MARY VALDES MD [facility] RAD LUMBAR PAIN, RADICULOPATHY [id number] 03/03/2015 18:35:00 03/03/2015 23:59:59 CLS Outpatient MARY VALDES MD [facility] RAD FEVER,ABD PAIN, DIVERTICULOSIS [id number] 02/09/2015 10:55:00 02/09/2015 16:55:00 DIS Outpatient IJEOMA CHIU MD [facility] SDC COMPRESSION FRACTURE [id number] 02/04/2015 09:19:00 02/04/2015 23:59:59 CLS Outpatient IJEOMA CHIU MD [facility] PREOP COMPRESSION FRACTURE [id number] 10/31/2014 14:27:00 10/31/2014 23:59:59 CLS Outpatient KATYA MELCHOR Tuan [employer] TECHNICIAN [facility] RAD ABD PAIN,DIARRHEA [id number] 10/31/2014 17:30:00 10/31/2014 18:54:00 DIS Emergency NING RIOS MD [facility] ER LOWER INTESTINE BLOCKAGE [id number] 10/30/2014 14:36:00 10/30/2014 23:59:59 CLS Outpatient MARY VALDES MD [facility] RAD LUMBAR PAIN, FALL [id number] 12/05/2012 09:20:00 12/05/2012 23:59:59 CLS Outpatient MARY VALDES MD [facility] LAB HTN [id number] 01/16/2018 22:32:00 Document Registration [id number] 01/26/2015 09:08:00 Document Registration [id number] 10/30/2014 14:35:00 Document Registration [id number] 08/31/2012 14:55:00 Document Registration [id number] 07/04/2012 08:44:00 Document Registration [id number] 08/29/2011 13:00:00 Document Registration [id number] 02/01/2011 07:54:00 Document Registration [id number] 01/02/2018 08:53:00 01/02/2018 23:59:59 CLS Outpatient [id number] 01/17/2018 19:12:00 01/17/2018 20:30:00 DIS Outpatient Koffi Workman [id number] 10/26/2017 12:06:00 10/26/2017 23:59:00 DIS Outpatient MARY VALDES [id number] 10/16/2017 16:45:00 10/16/2017 23:59:00 DIS Outpatient Reyna Thorpe [id number] 10/16/2017 11:24:00 10/16/2017 23:59:00 DIS Outpatient Reyna Thorpe [id number] 06/13/2017 11:53:00 06/13/2017 23:59:00 DIS Outpatient MARY VALDES [id number] 09/06/2016 08:40:00 09/06/2016 23:59:00 DIS Outpatient MARY VALDES [id number] 07/06/2016 09:18:00 07/06/2016 23:59:00 DIS Outpatient MARY VALDES [id number] 08/28/2017 15:07:46 08/28/2017 23:59:59 CLS Outpatient [id number] 08/05/2017 09:20:00 08/05/2017 23:59:59 CLS [facility]
[2018-05-15] MEDS ORDERED: NS IV 1000 ML 1,000 ML IV SCH ×2 (13:45→16:02)
[2018-05-15 14:04] LABS: HEMOGLOBIN 14.1 G/DL (13.3-17.7); MEAN PLATELET VOLUME 10.2 FL (7.4-10.4); RED BLOOD COUNT 4.42 10^6/uL (4.35-5.85); WHITE BLOOD COUNT 10.9 10^3/uL (4.3-11.0)
[2018-05-15] MEDS ORDERED: LOSA100T8 PO (14:08)
[2018-05-15] MEDS ORDERED: CHOL10007 PO (14:08)
[2018-05-15] MEDS ORDERED: OMG1KC PO (14:08)
[2018-05-15] MEDS ORDERED: ESOM20CA58 PO (14:08)
[2018-05-15] MEDS ORDERED: FLU QUADRIvalent (5+ YOA) 2018-2019 (AFLURIA) 0.5 ML IM ONE (14:15)
[2018-05-15] MEDS ORDERED: CLON0.1T PO (14:18)
[2018-05-15] MEDS ORDERED: LORA0.5T PO (14:18)
[2018-05-15 14:20] LABS: PROTHROMBIN TIME PATIENT 12.9 SEC (12.2-14.7)
[2018-05-15 14:26] LABS: ALANINE AMINOTRANSFERASE 23 U/L (0-55); ALBUMIN 4.6 GM/DL (3.2-4.5); ALKALINE PHOSPHATASE 67 U/L (40-136); BILIRUBIN,TOTAL 1.6 MG/DL (0.1-1.0); BUN/CREATININE RATIO 15; CALCIUM 10.1 MG/DL (8.5-10.1); CARBON DIOXIDE 25 MMOL/L (21-32); CHLORIDE 103 MMOL/L (98-107); CHOLESTEROL 201 MG/DL (< 200); CREATININE SERUM 0.81 MG/DL (0.60-1.30); GFR ESTIMATED > 60; GLUCOSE 96 MG/DL (70-105); HDL CHOLESTEROL 36 MG/DL (40-60); POTASSIUM 3.8 MMOL/L (3.6-5.0); SODIUM 139 MMOL/L (135-145); TOTAL PROTEIN 7.4 GM/DL (6.4-8.2); TRIGLYCERIDES 154 MG/DL (<150); VLDL CHOLESTEROL 31 MG/DL (5-40)
[2018-05-15] MEDS ORDERED: MIDAZOLAM 5 MG/5 ML (VERSED) VIAL ONE (14:44)
[2018-05-15] MEDS ORDERED: fentaNYL INJECTION 100 MCG/2 ML AMP ONE (14:45)
--- NOTE | 2018-05-15 15:03 | Cardiac Procedure Note-CS/ASA ---
Pre-Procedure Note Pre-Op Procedure Note H&P Reviewed The H&P was reviewed, patient examined and no changes noted. Date H&P Reviewed: May 15, 2018 Time H&P Reviewed: 15:02 Conscious Sedation Pre-Proced Time 15:02 ASA Score 3 For ASA 3 and 4: Consider anesthesia and medical clearance. Also, for patients with a history of failed moderate sedation consider anesthesia. Airway Lungs Heart ASA score ASA 1: a normal healthy patient ASA 2: a patient with a mild systemic disease (mid diabetes, controlled hypertension, obesity ASA 3: a patient with a severe systemic disease that limits activity (angina , COPD, prior Myocardial infarction) ASA 4: a patient with an incapacitating disease that is a constant threat to life (CHF, renal failure) ASA 5: a moribund patient not expected to survive 24 hrs. (ruptured aneurysm) ASA 6: a declared brain patient whose organs are being harvested. For emergent operations, add the letter E after the classification Mallampati Classification Grade 2 Sedation Plan Analgesia, Amnesia, Plan communicated to team members, Discussed options with patient/fam, Discussed risks with patient/fam The patient is an appropriate candidate to undergo the planned procedure, sedation, and anesthesia. The patient immediately re-assessed prior to indication. MIQUEL MILES MD FACP FAC CCDS May 15, 2018 15:03
[2018-05-15] MEDS ORDERED: NITRO DRIP 25000 MCG/D5W 0 ML IV ONE (15:15)
[2018-05-15] MEDS ORDERED: HEParin 1000 UNIT/ML (10ML VIAL) FOR BOLUS ONE (15:15)
[2018-05-15] MEDS ORDERED: EPTIFIBATIDE BOLUS 20 ML IV ONE (15:18)
[2018-05-15] MEDS ORDERED: ASPIRIN 81 MG CHEW (CHILDREN'S ASA) ONE (15:35)
[2018-05-15] MEDS ORDERED: CLOPIDOGREL 300 MG (PLAVIX) TABLET PO ONE (15:35)
[2018-05-15] MEDS ORDERED: PATIENT MAY USE OWN MEDS, ALL PO SCH (16:15)
[2018-05-15] MEDS ORDERED: meTOproloL SUCCINATE 50 MG (TOPROL XL) TAB PO NR (16:15)
[2018-05-15] MEDS ORDERED: TEMAZEPAM 7.5 MG CAP (RESTORIL) PO PRN (16:15)
[2018-05-15] MEDS ORDERED: ACETAMINOPHEN 325 MG TABLET PO PRN (16:15)
[2018-05-15] MEDS ORDERED: doxAzosin 4 MG (CARDURA) TAB PO PRN (16:15)
[2018-05-15] MEDS ORDERED: LORazepam 0.5 MG (ATIVAN) TABLET PO PRN ×2 (16:15→17:45)
[2018-05-15] MEDS ORDERED: amLODIPine 10 MG (NORVASC) TAB PO NR (17:15)
[2018-05-15] MEDS ORDERED: ATORVASTATIN 40 MG (LIPITOR) TABLET PO SCH (21:00)
--- NOTE | 2018-05-15 21:12 | CARDIAC CATHETERIZATION ---
DATE OF SERVICE: 05/15/2018 CARDIAC CATHETERIZATION REPORT The patient is a 62-year-old man who has profound generalized fatigue, malaise and exertional shortness of breath. These symptoms have been worsening. He also has uncontrolled hypertension despite multiple blood pressure medicines. Cardiac catheterization with possible ad hoc coronary intervention was recommended and informed consent obtained. We also recommended and obtained consent for abdominal aortic and renal artery angiography. PROCEDURE: He was brought to the cardiac catheterization laboratory in a fasting state. Right groin was prepared and draped in the usual sterile fashion. A 1% lidocaine with local anesthesia. Modified Seldinger technique was used to advance a 5-Mauritanian sheath in the right femoral artery. A 5-Mauritanian JL4 catheter for left coronary angiography, 5-Mauritanian JR4 catheter for right coronary angiography, 5-Mauritanian pigtail catheter was used for left heart catheterization, left ventricular angiography. Pigtail catheter was pulled back to the abdominal aorta and positioned at the level of L1. Abdominal aortic angiography was performed. The pigtail catheter was then removed. PERCUTANEOUS INTERVENTION TO THE LEFT ANTERIOR DESCENDING ARTERY: Following completion of the diagnostic procedure, we carried out percutaneous intervention to the left anterior descending artery where the patient had 75% proximal and approximately 70% mid vessel stenoses. We exchanged the sheath over a wire for a 6-Mauritanian sheath. We gave 6000 units of intravenous heparin. A double bolus of Integrilin was given during the procedure. We used a 6-Mauritanian JL4 guide catheter to engage the left coronary artery. We advanced a BMW wire across the lesions and the tip was placed in the distal vessel. We stented the mid vessel lesion with Dilcia 2.5 x 15 mm stent that was deployed at 18 atmospheres. We attended the proximal left anterior descending artery lesion with Dilcia 2.75 x 12 mm stent that was deployed at 20 atmospheres. Subsequent angiography revealed 0% residual stenosis and flow throughout the vessel is normal. He tolerated the procedure well. At the end of the procedure, angiography of the right femoral artery was carried out through the sheath and Mynx was used to achieve hemostasis. He tolerated the procedure well. HEMODYNAMICS: Left ventricular end-diastolic pressure following coronary angiography was 13 mmHg. There is no significant pressure gradient on pullback across the aortic valve. Ascending aortic pressure was 152/67 with a mean of 103 mmHg. ABDOMINAL AORTIC ANGIOGRAPHY: Abdominal aortic angiography did not show any abdominal aortic aneurysm or dissection. The renal arteries are identified and do not exhibit significant stenosis. The mesenteric vessels, to the extent seen, do not exhibit significant stenosis. The aortoiliac bifurcation appears intact and without significant disease. LEFT VENTRICULAR ANGIOGRAPHY: Left ventricular angiography was carried out in the right anterior oblique projection. Global left ventricular systolic function is normal. Left ventricular ejection fraction approximately 60%. CORONARY ANGIOGRAPHY: Left main coronary artery is free of significant disease. Left anterior descending artery had 75% proximal and approximately 70% mid vessel stenoses, which were successfully stented as described above. Following stent deployment, there is no significant residual stenosis. Left circumflex artery is nondominant and does not have significant disease. Right coronary artery is dominant and does not have significant obstructive disease. CONCLUSIONS: 1. Coronary artery disease, primarily single vessel, primarily consisting of 75% mid vessel stenosis of the left anterior descending that was stented with Dilcia 2.75 x 12 mm stent and 70% stenosis in the mid left anterior descending artery that was stented with Dilcia 2.5 x 15 mm stent. The rest of the coronary vessels do not have significant disease. 2. Normal global left ventricular systolic function with ejection fraction approximately 60%. 3. No evidence of abdominal aortic aneurysm. 4. No evidence of any significant renal artery stenosis. DISCUSSION AND RECOMMENDATIONS: His previous hypertensive and cardiac regimen are being continued. Dual antiplatelet therapy is being added. He is being hospitalized for overnight observation. Job ID: [id number] DocumentID: [id number] Dictated Date: 05/15/2018 15:47:01 Cosmetic Chemist Date: 05/15/2018 21:12:05 Dictated By: MIQUEL MILES MD, MA, FACP, FACC,
[2018-05-16] VITALS: BP 147/82
[2018-05-16 03:40] VITALS: BP 127/70
[2018-05-16 04:11] LABS: HEMOGLOBIN 12.2 G/DL (13.3-17.7); MEAN PLATELET VOLUME 10.4 FL (7.4-10.4); RED BLOOD COUNT 3.92 10^6/uL (4.35-5.85); RED CELL DISTRIBUTION WIDTH 12.9 % (10.0-14.5); WHITE BLOOD COUNT 7.3 10^3/uL (4.3-11.0)
[2018-05-16 04:29] LABS: BUN/CREATININE RATIO 16; CALCIUM 9.2 MG/DL (8.5-10.1); CARBON DIOXIDE 22 MMOL/L (21-32); CHLORIDE 102 MMOL/L (98-107); CREATININE SERUM 0.77 MG/DL (0.60-1.30); GFR ESTIMATED > 60; GLUCOSE 102 MG/DL (70-105); POTASSIUM 3.8 MMOL/L (3.6-5.0); SODIUM 136 MMOL/L (135-145)
[2018-05-16] MEDS ORDERED: PANTOPRAZOLE 20 MG TABLET (PROTONIX) PO SCH (07:00)
[2018-05-16] MEDS ORDERED: ESOMEPRAZOLE 20 MG PO SCH (07:00)
--- NOTE | 2018-05-16 07:48 | Progress Note-Cardiology ---
Cardiology SO Progress Note Objective: I&O/Vital Signs Weight (Pounds): 190 Weight (Ounces): 0.0 Weight (Calculated Kilograms): 86.155497 Results/Procedures: Labs Microbiology 05/15/18 MRSA Screen - Final, Complete No growth A/P: Assessment: Coronary artery disease, primarily single vessel, primarily consisting of 75% mid vessel stenosis of the left anterior descending that was stented with Dilcia 2.75 x 12 mm stent and 70% stenosis in the mid left anterior descending artery that was stented with Dilcia 2.5 x 15 mm stent. The rest of the coronary vessels do not have significant disease. Normal global left ventricular systolic function with ejection fraction approximately 60%. No evidence of abdominal aortic aneurysm. No evidence of any significant renal artery stenosis. Per cardiac cath of Hypertension, not well controlled Palpitations. TSH normal (2.12) on 01/11/18. ECG on 02/05/18 shows NSR with rate 62 bpm. Holter of 02/08/18 showed NSR at avg heart rate of 65 bpm, one 4-beat run of SVT @ 160 bpm, no VT or significant donna, rare PACs and PVCs, no correlation of symptoms with any significant ECG changes W/u for secondary hypertension: No BRANDT on renal a u/s . W/u for pheochromocytoma carried out by Dr Nguyen in Apr 2018 is reported to be negative. No evidence of TIAGO on a sleep study of Apr 2018 Echo of 01/11/18: LVEF 60-65%, i,mld MR, PASP 35-40 mmHg MPI of 02/06/18: No ischemia or infarction, LVEF 69% Cough on SHRAVAN-inhibitor Quit tobacco use in 2005 NELI MCBRIDE May 16, 2018 07:48
[2018-05-16] MEDS ORDERED: ATOR40TA PO (08:46)
[2018-05-16] MEDS ORDERED: CLOP75TA28 PO (08:46)
[2018-05-16] MEDS ORDERED: ASPI-999 PO (08:48)
--- NOTE | 2018-05-16 08:49 | Discharge Inst-Cardiology ---
Discharge Inst-Cardiac Discharge Medications New Medications: Aspirin (Aspirin) 81 Mg Tab.chew 81 MG PO DAILY, #120 TAB 5 Refills Atorvastatin Calcium (Lipitor) 40 Mg Tablet 40 MG PO HS, #30 TAB 5 Refills Clopidogrel Bisulfate (Clopidogrel) 75 Mg Tablet 75 MG PO DAILY, #30 TAB 5 Refills Continued Medications: Cholecalciferol (Vitamin D3) (Vitamin D3) 1,000 Unit Capsule 1000 UNIT PO DAILY, CAP Diltiazem HCl (Cartia Xt) 120 Mg Cap.er.24h 120 MG PO HS, CAP Esomeprazole Magnesium (Nexium 24Hr) 20 Mg Capsule.dr 20 MG PO DAILY, CAP Lorazepam (Lorazepam) 0.5 Mg Tablet 0.5 MG PO BID PRN for ANXIETY, TAB Losartan Potassium (Losartan Potassium) 100 Mg Tablet 100 MG PO DAILY, TAB [place] 3 Polyunsat Fatty Acids (Fish Oil 1,000 mg Capsule) 1,000 Mg Cap 1000 MG PO DAILY, CAP Discontinued Medications: Clonidine HCl (Clonidine HCl) 0.1 Mg Tablet 0.1 MG PO BID PRN for BP>160, TAB New, Converted or Re-Newed RX: Transmitted to Pharmacy Patient Instructions Patient Instructions: Please schedule follow up appointment to see Dr. Johnson in 2 weeks NELI MCBRIDE May 16, 2018 08:49
[2018-05-16 09:00] VITALS: BP 153/81
[2018-05-16] MEDS ORDERED: OMEGA 3 (FISH OIL) 1000 MG CAP PO SCH ×2 (09:00)
[2018-05-16] MEDS ORDERED: NON-FORMULARY MEDICATION 1 EA EA (Cholecalciferol (Vitamin D3) (Vitamin D3) 1,000 UNIT) PO SCH (09:00)
[2018-05-16] MEDS ORDERED: LOSARTAN 100 MG (COZAAR) TABLET PO SCH ×2 (09:00)
[2018-05-16] MEDS ORDERED: VITAMIN D3 1,000 UNITS (CHOLECALCIFEROL) TABLET PO SCH ×2 (09:00)
[2018-05-16] MEDS ORDERED: ASPIRIN 81 MG CHEW (CHILDREN'S ASA) PO SCH (09:00)
[2018-05-16] MEDS ORDERED: CLOPIDOGREL 75 MG (PLAVIX) TABLET PO SCH (09:00)
[2018-05-16] MEDS ORDERED: meTOproloL SUCCINATE 50 MG (TOPROL XL) TAB PO SCH (09:00)
[2018-05-16] MEDS ORDERED: amLODIPine 10 MG (NORVASC) TAB PO SCH (09:00)
[2018-05-16] MEDS ORDERED: NON-FORMULARY MEDICATION 1 EA EA (Esomeprazole Magnesium (Nexium 24Hr) 20 MG) PO SCH (09:00)
[2018-05-16 09:04] VITALS: BP 153/81
[2018-05-16] MEDS ORDERED: morphine INJ 4 MG/ML 1 ML (VIAL/SYRINGE) ONE (11:01)
--- NOTE | 2018-05-16 12:15 | Progress Note-Cardiology ---
Cardiology SOAP Progress Note Subjective: Notes some dizziness No cp or palp or syncope or shortness of breath Feels happy that bp is better States cannot take beta-blockers Objective: I&O/Vital Signs 05/16/18 05/16/18 05/16/18 05/16/18 01:00 03:40 07:00 08:20 Temp 98.1 Pulse 60 49 59 Resp 12 B/P (MAP) 127/70 (89) Pulse Ox 99 100 O2 Delivery Room Air Room Air 05/16/18 05/16/18 05/16/18 09:00 09:04 09:56 Temp 98.5 Pulse 60 66 Resp 34 17 B/P (MAP) 153/81 (105) 153/81 (105) Pulse Ox 100 O2 Delivery Room Air Room Air 05/16/18 00:00 Intake Total 1300 ml Output Total 700 ml Balance 600 ml Weight (Pounds): 190 Weight (Ounces): 0.0 Weight (Calculated Kilograms): 86.615610 Constitutional: AAO x 3, well-developed, well-nourished Respiratory: No accessory muscle use, No respiratory distress; lungs clear to percussion, lungs clear to auscultation Cardiovascular: regular rate-rhythm, S1 and S2, systolic murmur (soft JUNIOR at card base) Gastrointestional: No tender; soft; No guarding, No rebound; audible bowel sounds Extremities: No clubbing, No cyanosis, No significant edema Neurologic/Psychiatric: oriented x 3, grossly intact, power is 5/5 both on sides Skin: No rash on exposed areas, No ulcerations on exposed areas Results/Procedures: Labs Laboratory Tests 05/15/18 13:55: White Blood Count 10.9, Red Blood Count 4.42, Hemoglobin 14.1, Hematocrit 39L, Mean Corpuscular Volume 88, Mean Corpuscular Hemoglobin 32, Mean Corpuscular Hemoglobin Concent 36, Red Cell Distribution Width 13.0, Platelet Count 305, Mean Platelet Volume 10.2, Prothrombin Time 12.9, INR Comment 1.0, Activated Partial Thromboplast Time 37H, Sodium Level 139, Potassium Level 3.8, Chloride Level 103, Carbon Dioxide Level 25, Anion Gap 11, Blood Urea Nitrogen 12, Creatinine 0.81, Estimat Glomerular Filtration Rate > 60, BUN/Creatinine Ratio 15, Glucose Level 96, Calcium Level 10.1, Corrected Calcium , Total Bilirubin 1.6H, Aspartate Amino Transf (AST/SGOT) 17, Alanine Aminotransferase (ALT/SGPT) 23, Alkaline Phosphatase 67, Total Protein 7.4, Albumin 4.6H, Triglycerides Level 154H, Cholesterol Level 201H, LDL Cholesterol Direct 136H, VLDL Cholesterol 31, HDL Cholesterol 36L 05/16/18 03:55: White Blood Count 7.3, Red Blood Count 3.92L, Hemoglobin 12.2L, Hematocrit 35L, Mean Corpuscular Volume 89, Mean Corpuscular Hemoglobin 31, Mean Corpuscular Hemoglobin Concent 35, Red Cell Distribution Width 12.9, Platelet Count 239, Mean Platelet Volume 10.4, Sodium Level 136, Potassium Level 3.8, Chloride Level 102, Carbon Dioxide Level 22, Anion Gap 12, Blood Urea Nitrogen 12, Creatinine 0.77, Estimat Glomerular Filtration Rate > 60, BUN/Creatinine Ratio 16, Glucose Level 102, Calcium Level 9.2 Laboratory Tests 05/15/18 13:55 05/16/18 03:55 A/P: Assessment: Coronary artery disease. Card cath of 05-15-18: 75% prox to mid vessel stenosis of the left anterior descending that was stented with Dilcia 2.75 x 12 mm stent and 70% stenosis in the mid left anterior descending artery that was stented with Dilcia 2.5 x 15 mm stent. The rest of the coronary vessels do not have significant disease. Normal global left ventricular systolic function with ejection fraction approximately 60%. No evidence of abdominal aortic aneurysm. No evidence of any significant renal artery stenosis. Hypertension, improved after cor intervention Intolerance to beta-blockers Hyperlipidemia, treatment with atorvastatin initiated during this hospitalization Palpitations. TSH normal (2.12) on 01/11/18. ECG on 02/05/18 shows NSR with rate 62 bpm. Holter of 02/08/18 showed NSR at avg heart rate of 65 bpm, one 4-beat run of SVT @ 160 bpm, no VT or significant donna, rare PACs and PVCs, no correlation of symptoms with any significant ECG changes W/u for secondary hypertension: No BRANDT on abdominal aortic angio of 05-15-18. W/ u for pheochromocytoma carried out by Dr Nguyen in Apr 2018 is reported to be negative. No evidence of TIAGO on a sleep study of Apr 2018 Echo of 01/11/18: LVEF 60-65%, i,mld MR, PASP 35-40 mmHg MPI of 02/06/18: No ischemia or infarction, LVEF 69% Cough on SHRAVAN-inhibitor Quit tobacco use in 2005 Plan: * I discussed in detail her cor anatomy, interventions undertaken, and future treatment plan with him and his , and answered questions * We discussed the pros and cons of current meds and advised compliance * We discussed risk factor modification and management of bp * Close outpatient f/u is advised for now MIQUEL MILES MD FACP FAC CCDS May 16, 2018 12:15
== END 2018-05-16 09:56 | disposition home or self-care (01) ==
LOC: CATH 13:29 → ICU 16:21 → CATH 05-16 09:56
PROVIDERS: ATTEND Internal Medicine Cardiovascular Disease
DX: I25.10 Atherosclerotic heart disease of native coronary artery without angina pectoris (principal); I10 Essential (primary) hypertension; R00.2 Palpitations; R42 Dizziness and giddiness; E78.5 Hyperlipidemia, unspecified; R53.1 Weakness; Z87.891 Personal history of nicotine dependence; Z95.5 Presence of coronary angioplasty implant and graft; Z79.82 Long term (current) use of aspirin; Z79.899 Other long term (current) drug therapy
CPT/HCPCS: 36415; 75625; 80048; 80053; 80061; 85027; 85610; 85730; 87081; 93005; 93458

== ENCOUNTER 2018-05-16 19:21 | Emergency (ER) | payer BC ==
[~2018-05-16] VITALS: Ht 182.9 cm; Wt 86.2 kg
[~2018-05-16 19:21] MED LIST changes: +ASPI-999 PO; +ATOR40TA PO; +CHOL10007 PO; +CLOP75TA28 PO; +ESOM20CA58 PO; +LORA0.5T PO; +LOSA100T8 PO
[2018-05-16 21:49] LABS: BASOPHILS % (AUTO) 0 % (0-10); EOSINOPHILS # (AUTO) 0.2 10^3/uL (0.0-0.3); EOSINOPHILS % (AUTO) 2 % (0-10); HEMATOCRIT 36 % (40-54); HEMOGLOBIN 12.9 G/DL (13.3-17.7); LYMPHOCYTES # (AUTO) 1.6 X 10^3 (1.0-4.0); LYMPHOCYTES % (AUTO) 19 % (12-44); MEAN CORPUSCULAR HEMOGLOBIN 32 PG (25-34); MEAN CORPUSCULAR HGB CONC 36 G/DL (32-36); MEAN CORPUSCULAR VOLUME 87 FL (80-99); MEAN PLATELET VOLUME 10.4 FL (7.4-10.4); MONOCYTES # (AUTO) 0.9 X 10^3 (0.0-1.0); MONOCYTES % (AUTO) 10 % (0-12); NEUTROPHILS % (AUTO) 69 % (42-75); PLATELET COUNT 269 10^3/uL (130-400); RED BLOOD COUNT 4.09 10^6/uL (4.35-5.85); RED CELL DISTRIBUTION WIDTH 12.5 % (10.0-14.5); WHITE BLOOD COUNT 8.7 10^3/uL (4.3-11.0)
--- NOTE | 2018-05-16 22:01 | Diagnostic Imaging Report ---
INDICATION: Chills and nausea. EXAMINATION: Frontal chest was obtained at 9:48 p.m. FINDINGS: Heart and mediastinal silhouette are normal in appearance. The lungs are clear. There is no pneumothorax or pleural fluid. IMPRESSION: No acute process in the chest and no change from 04/10/2018. Dictated by: Dictated on workstation # [id number]
[2018-05-16 22:02] LABS: PROTHROMBIN TIME PATIENT 13.4 SEC (12.2-14.7)
[2018-05-16 22:09] LABS: ALANINE AMINOTRANSFERASE 16 U/L (0-55); ALBUMIN 4.4 GM/DL (3.2-4.5); ALKALINE PHOSPHATASE 61 U/L (40-136); BILIRUBIN,TOTAL 2.1 MG/DL (0.1-1.0); BUN/CREATININE RATIO 12; CALCIUM 9.7 MG/DL (8.5-10.1); CARBON DIOXIDE 21 MMOL/L (21-32); CHLORIDE 100 MMOL/L (98-107); CREATININE SERUM 0.75 MG/DL (0.60-1.30); GFR ESTIMATED > 60; GLUCOSE 110 MG/DL (70-105); MAGNESIUM 1.9 MG/DL (1.8-2.4); POTASSIUM 3.4 MMOL/L (3.6-5.0); SODIUM 135 MMOL/L (135-145); TOTAL PROTEIN 6.9 GM/DL (6.4-8.2)
[2018-05-16] MEDS ORDERED: ONDANSETRON 4 MG/2 ML (SDV) Z0FRAN IVP ONE (22:15)
[2018-05-16 22:16] LABS: MYOGLOBIN SERUM 33.9 NG/ML (10.0-92.0)
--- NOTE | 2018-05-16 22:29 | ED General ---
General Chief Complaint: Cardiac/General Problems Stated Complaint: HEART CATH YESTERDAY/FEELING NAUSEA / FEELING SICK Nursing Triage Note: HTN COMPLAINT OF CHILLS/NAUSEA/DIARRHEA. STATES HEART CATH YESTERDAY. Nursing Sepsis Screen: No Definite Risk Source of Information: Patient Exam Limitations: No Limitations History of Present Illness Date Seen by Provider: May 16, 2018 Time Seen by Provider: 21:53 Initial Comments Here with nausea, diarrhea and chills today. Had heart catheter yesterday. He was discharged from the hospitalist morning. At discharge, they did give him all of his medicines at once. He doesn't normally take him that way. Afterwards his stomach became upset. He's had a few episodes of diarrhea today and feels a little better tomorrow. Did have higher blood pressure this evening prior to coming into the emergency department and that concerned him given his recent heart catheter. He did have 2 stents placed. His blood pressure is currently better now. Timing/Duration: 12 Hours Severity: Moderate Associated Systoms: No Chest Pain, No Cough, No Fever/Chills, No Malaise; Nausea/Vomiting; No Shortness of Air, No Weakness Allergies and Home Medications Allergies Coded Allergies: Sulfa (Sulfonamide Antibiotics) (Verified Allergy, Unknown, 05/16/18) dextromethorphan (Verified Allergy, Unknown, 05/16/18) meperidine (Unverified Adverse Reaction, Unknown, 05/16/18) Home Medications Aspirin 81 Mg Tab.chew, 81 MG PO DAILY Prescribed by: NELI MCBRIDE on 05/16/18 0848 Atorvastatin Calcium 40 Mg Tablet, 40 MG PO HS Prescribed by: NELI MCBRIDE on 05/16/18 0846 Cholecalciferol (Vitamin D3) 1,000 Unit Capsule, 1,000 UNIT PO DAILY, (Reported) Clopidogrel Bisulfate 75 Mg Tablet, 75 MG PO DAILY Prescribed by: NELI MCBRIDE on 05/16/18 0846 Diltiazem HCl 120 Mg Cap.er.24h, 120 MG PO HS, (Reported) Esomeprazole Magnesium 20 Mg Capsule.dr, 20 MG PO DAILY, (Reported) Lorazepam 0.5 Mg Tablet, 0.5 MG PO BID PRN for ANXIETY, (Reported) Losartan Potassium 100 Mg Tablet, 100 MG PO DAILY, (Reported) [place] 3 Polyunsat Fatty Acids 1,000 Mg Cap, 1,000 MG PO DAILY, (Reported) Patient Home Medication List Home Medication List Reviewed: Yes Review of Systems Review of Systems Constitutional: see HPI, chills; No fever, No weakness EENTM: no symptoms reported Respiratory: no symptoms reported Cardiovascular: no symptoms reported; No chest pain, No edema Gastrointestinal: abdominal pain, diarrhea, nausea; No vomiting Genitourinary: no symptoms reported Musculoskeletal: no symptoms reported All Other Systems Reviewed Negative Unless Noted: Yes Past Jfqtevb-Veafci-Fqhacs Hx Past Med/Social Hx: Reviewed Nursing Past Med/Soc Hx Patient Social History Alcohol Use: Denies Use Number of Drinks Today: AA Alcohol Beverage of Choice: Beer Recreational Drug Use: No Smoking Status: Former Smoker Type Used: Cigarettes Former Smoker, Quit: May 15, 2006 2nd Hand Smoke Exposure: No Recent Foreign Travel: No Contact w/Someone Who Travel: No Recent Infectious Disease Expo: No Recent Hopitalizations: No Seasonal Allergies Seasonal Allergies: No Past Medical History Surgeries: Yes (BACK, HERNIAS, FACE LACERATION, ) Abdominal, Appendectomy, Gallbladder, Orthopedic Respiratory: No Cardiac: Yes Hypertension, Irregular Heartbeat, Palpitations Neurological: No Reproductive Disorders: No HIV/AIDS: No Genitourinary: No Gastrointestinal: Yes (TAKES PRILOSEC) Gastroesophageal Reflux, Diverticulosis Musculoskeletal: Yes (BACK SURGERY; L1 COMPRESSION FX WITH KYPHOPLASTY 01/2015 , ) Chronic Back Pain Endocrine: No HEENT: No Loss of Vision: Bilateral Hearing Impairment: Denies Cancer: No Psychosocial: Yes Anxiety Integumentary: No Blood Disorders: Yes (tularemia) Adverse Reaction/Blood Tranf: No Family Medical History Reviewed Nursing Family Hx No Pertinent Family Hx Physical Exam Vital Signs Vital Signs - First Documented 05/16/18 19:39 Temp 98.0 Pulse 83 Resp 20 B/P (MAP) 154/90 (111) Pulse Ox 99 O2 Delivery Room Air Capillary Refill : Less Than 3 Seconds Height, Weight, BMI Height: 6'0.00" Weight: 190lbs. 0.0oz. 86.367983la; 25.8 BMI Method:Stated General Appearance: No Apparent Distress, WD/WN Neck: Non Tender, Supple Respiratory: Lungs Clear, Normal Breath Sounds Cardiovascular: Regular Rate, Rhythm, No Murmur Gastrointestinal: Normal Bowel Sounds, No Pulsatile Mass, Non Tender, Soft Back: Normal Inspection, No CVA Tenderness, No Vertebral Tenderness Extremity: Normal Inspection, Normal Range of Motion, Non Tender, No Calf Tenderness Neurologic/Psychiatric: Alert, Oriented x3 Skin: Normal Color, Warm/Dry Progress/Results/Core Measures Suspected Sepsis Recent Fever Within 48 Hours: No Infection Criteria Present: None New/Unexplained Altered Menta: No Sepsis Screen: No Definite Risk SIRS Temperature:98.0 Pulse: 83 Respiratory Rate: 20 Laboratory Tests 05/16/18 21:35: White Blood Count 8.7 Blood Pressure 154 /90 Mean: 111 Laboratory Tests 05/16/18 21:35: Creatinine 0.75, INR Comment 1.0, Platelet Count 269, Total Bilirubin 2.1H Results/Orders Lab Results Laboratory Tests Test 05/16/18 21:35 Range/Units White Blood Count 8.7 4.3-11.0 10^3/uL Red Blood Count 4.09 L 4.35-5.85 10^6/uL Hemoglobin 12.9 L 13.3-17.7 G/DL Hematocrit 36 L 40-54 % Mean Corpuscular Volume 87 80-99 FL Mean Corpuscular Hemoglobin 32 25-34 PG Mean Corpuscular Hemoglobin Concent 36 32-36 G/DL Red Cell Distribution Width 12.5 10.0-14.5 % Platelet Count 269 130-400 10^3/uL Mean Platelet Volume 10.4 7.4-10.4 FL Neutrophils (%) (Auto) 69 42-75 % Lymphocytes (%) (Auto) 19 12-44 % Monocytes (%) (Auto) 10 0-12 % Eosinophils (%) (Auto) 2 0-10 % Basophils (%) (Auto) 0 0-10 % Neutrophils # (Auto) 6.0 1.8-7.8 X 10^3 Lymphocytes # (Auto) 1.6 1.0-4.0 X 10^3 Monocytes # (Auto) 0.9 0.0-1.0 X 10^3 Eosinophils # (Auto) 0.2 0.0-0.3 10^3/uL Basophils # (Auto) 0.0 0.0-0.1 10^3/uL Prothrombin Time 13.4 12.2-14.7 SEC INR Comment 1.0 0.8-1.4 Activated Partial Thromboplast Time 35 24-35 SEC Sodium Level 135 135-145 MMOL/L Potassium Level 3.4 L 3.6-5.0 MMOL/L Chloride Level 100 98-107 MMOL/L Carbon Dioxide Level 21 21-32 MMOL/L Anion Gap 14 5-14 MMOL/L Blood Urea Nitrogen 9 7-18 MG/DL Creatinine 0.75 0.60-1.30 MG/DL Estimat Glomerular Filtration Rate > 60 BUN/Creatinine Ratio 12 Glucose Level 110 H 70-105 MG/DL Calcium Level 9.7 8.5-10.1 MG/DL Corrected Calcium 9.4 8.5-10.1 MG/DL Magnesium Level 1.9 1.8-2.4 MG/DL Total Bilirubin 2.1 H 0.1-1.0 MG/DL Aspartate Amino Transf (AST/SGOT) 14 5-34 U/L Alanine Aminotransferase (ALT/SGPT) 16 0-55 U/L Alkaline Phosphatase 61 40-136 U/L Myoglobin 33.9 10.0-92.0 NG/ML Troponin I < 0.30 <0.30 NG/ML Total Protein 6.9 6.4-8.2 GM/DL Albumin 4.4 3.2-4.5 GM/DL My Orders Orders - NING RIOS MD Cbc With Automated Diff (05/16/18 21:38) Magnesium (05/16/18 21:38) Chest 1 View, Ap/Pa Only (05/16/18 21:38) Ekg Tracing (05/16/18 21:38) Cardiac Profile 1 (05/16/18 21:38) Comprehensive Metabolic Panel (05/16/18 21:38) Myoglobin Serum (05/16/18 21:38) Protime With Inr (05/16/18 21:38) Partial Thromboplastin Time (05/16/18 21:38) O2 (05/16/18 21:38) Monitor-Rhythm Ecg Trace Only (05/16/18 21:38) Lipid Panel (05/17/18 06:00) Saline Lock/Iv-Start (05/16/18 21:38) Ondansetron Injection (Zofran Injectio (05/16/18 22:15) Rx-Ondansetron Po (Rx-Zofran Po) (05/16/18 22:38) Medications Given in ED Current Medications Medications Dose Ordered Sig/Ankita Route Start Time Stop Time Status Last Admin Dose Admin Ondansetron HCl 4 mg ONCE ONCE IVP 05/16/18 22:15 05/16/18 22:16 DC 05/16/18 22:20 4 MG Vital Signs/I&O 05/16/18 05/16/18 19:39 21:35 Temp 98.0 Pulse 83 Resp 20 B/P (MAP) 154/90 (111) Pulse Ox 99 98 O2 Delivery Room Air Room Air Capillary Refill : Less Than 3 Seconds Blood Pressure Mean: 111 Progress Note : Progress Note Seen and evaluated. IV, labs, EKG and chest x-ray ordered. This is mainly given that he's recently had heart catheter and were trying to make sure that he has no chest pain variant. Blood pressure has improved on its own to the 140s systolic. He is due his inability pressure medicine but we will try to let him take that at home. Zofran 4 mg IV given. Monitor patient. 2236: Overall improved after meds. Discharged home with return precautions. Patient verbalize understanding instructions and agreement with plan. No other significant abnormalities noted on evaluation. ECG Initial ECG Impression Date: May 16, 2018 Initial ECG Impression Time: 21:17 Initial ECG Rate: 65 Initial ECG Rhythm: Normal Sinus Initial ECG Comparisson: Unchanged Comment Sinus rhythm with leftward axis. No evidence of ST elevation [place]. Similar to previous of 05/16/18. Interpreted by me. Diagnostic Imaging Diagonstic Imaging: Xray Plain Films/CT/US/NM/MRI: chest Comments NAME: CHELSI FORDE MED REC#: [id number] PT STATUS: REG ER : 1955 PHYSICIAN: NING RIOS MD ADMIT DATE: 05/16/18/ER Signed Date of Exam: 05/16/18 CHEST 1 VIEW, AP/PA ONLY INDICATION: Chills and nausea. EXAMINATION: Frontal chest was obtained at 9:48 p.m. FINDINGS: Heart and mediastinal silhouette are normal in appearance. The lungs are clear. There is no pneumothorax or pleural fluid. IMPRESSION: No acute process in the chest and no change from 04/10/2018. Dictated by: Dictated on workstation # [id number] Dict: 05/16/182158 Trans: 05/16/182201 Interpreted by: JEREMIE SHEFFIELD MD Electronically signed by: JEREMIE SHEFFIELD MD 05/16/182201 Departure Impression Primary Impression: Diffuse abdominal pain Additional Impression: Diarrhea Qualified Codes: R19.7 - Diarrhea, unspecified Disposition: 01 HOME, SELF-CARE Condition: Improved Departure-Patient Inst. Decision time for Depature: 22:37 Referrals: KAREN DEJESUS DO (PCP/Family) Primary Care Physician Patient Instructions: Acute Abdomen (Belly Pain), Adult (DC), Diarrhea in Adolescents and Adults Add. Discharge Instructions: All discharge instructions reviewed with patient and/or family. Voiced understanding. Clear liquids only diet for the next 24 hours and then advance as tolerated. You may take medication as directed. Continue home meds as previously prescribed. Follow-up with your Dr. in a few days for recheck. Return for worse pain, fever, vomiting, weakness, breathing problems or other concerns as needed. NING RIOS MD May 16, 2018 22:29
[2018-05-16] MEDS ORDERED: RX-ONDANSETRON 4 MG ODT (ZOFRAN) PPK #4 PO STA (22:38)
[2018-05-16 22:50] VITALS: BP 144/82
== END 2018-05-16 23:01 | disposition home or self-care (01) ==
LOC: EDUNIT# 19:21 → ER 19:23
DX: R10.84 Generalized abdominal pain (principal); R19.7 Diarrhea, unspecified; I10 Essential (primary) hypertension; K21.9 Gastro-esophageal reflux disease without esophagitis; F41.9 Anxiety disorder, unspecified; Z87.19 Personal history of other diseases of the digestive system; Z88.2 Allergy status to sulfonamides; Z88.8 Allergy status to other drugs, medicaments and biological substances; Z79.82 Long term (current) use of aspirin; Z79.02 Long term (current) use of antithrombotics/antiplatelets; Z95.9 Presence of cardiac and vascular implant and graft, unspecified; Z87.891 Personal history of nicotine dependence; Z98.890 Other specified postprocedural states; Z90.49 Acquired absence of other specified parts of digestive tract
CPT/HCPCS: 36415; 71045; 80053; 83735; 83874; 84484; 85025; 85610; 85730; 93005; 93041

== ENCOUNTER → 2018-05-29 | Outpatient (CLI) | payer BC, OTHER | LOC: CARD 12:46 | PROVIDERS: ATTEND Internal Medicine Cardiovascular Disease | DX: I25.10 Atherosclerotic heart disease of native coronary artery without angina pectoris (principal); I10 Essential (primary) hypertension; R00.2 Palpitations; R06.02 Shortness of breath | CPT/HCPCS: 93017 ==

== ENCOUNTER → 2018-06-06 | Outpatient (CLI) | payer BC, OTHER ==
--- NOTE | 2018-06-06 10:51 | Diagnostic Imaging Report ---
PROCEDURE: CT head and neck without contrast. TECHNIQUE: Contiguous axial images were obtained from the skull base through the vertex. Noncontrast axial images were then obtained of the soft tissue of the neck. INDICATION: Intermittent headaches for four-five months. CT HEAD: Ventricles and sulci are within normal limits. No sulcal effacement, midline shift or hemorrhage is seen. Cisterns are patent. The visualized paranasal sinuses are clear. IMPRESSION: No acute intracranial process is detected. CT NECK: The study is compromised without IV contrast. Visualized intracranial structures are unremarkable. There is a mucous retention cyst or polyp left maxillary sinus. Posterior nasopharynx and oropharynx are unremarkable. Epiglottis and larynx are unremarkable. No definite thyroid mass is seen. The submandibular and parotid glands appear to be symmetric bilaterally. No definite cervical lymphadenopathy is seen. No fluid collection is identified. IMPRESSION: Unremarkable noncontrast CT of the neck apart from a mucus retention cyst or polyp left maxillary sinus. No acute features detected. Dictated by: Dictated on workstation # [id number]
== END ==
LOC: RAD 09:59
PROVIDERS: ATTEND Internal Medicine
DX: R51 Headache (principal)
CPT/HCPCS: 70450; 70490

== ENCOUNTER → 2018-06-19 | Outpatient (CLI) | payer BC, OTHER ==
[2018-06-19 09:34] LABS: BUN/CREATININE RATIO 12; CALCIUM 10.3 MG/DL (8.5-10.1); CARBON DIOXIDE 26 MMOL/L (21-32); CHLORIDE 103 MMOL/L (98-107); CREATININE SERUM 0.92 MG/DL (0.60-1.30); GFR ESTIMATED > 60; GLUCOSE 85 MG/DL (70-105); MAGNESIUM 1.5 MG/DL (1.8-2.4); POTASSIUM 4.1 MMOL/L (3.6-5.0); SODIUM 138 MMOL/L (135-145)
== END ==
LOC: LAB 08:46
PROVIDERS: ATTEND Internal Medicine
DX: I10 Essential (primary) hypertension (principal)
CPT/HCPCS: 36415; 80048; 83735

== ENCOUNTER → 2018-06-27 | Outpatient (CLI) | payer BC, OTHER ==
[2018-06-27 13:23] LABS: HEMOGLOBIN 14.7 G/DL (13.3-17.7); MEAN PLATELET VOLUME 9.7 FL (7.4-10.4); RED BLOOD COUNT 4.73 10^6/uL (4.35-5.85); RED CELL DISTRIBUTION WIDTH 13.2 % (10.0-14.5); WHITE BLOOD COUNT 10.1 10^3/uL (4.3-11.0)
[2018-06-27 13:42] LABS: ALANINE AMINOTRANSFERASE 28 U/L (0-55); ALBUMIN 4.7 GM/DL (3.2-4.5); ALKALINE PHOSPHATASE 93 U/L (40-136); BUN/CREATININE RATIO 16; CALCIUM 9.6 MG/DL (8.5-10.1); CARBON DIOXIDE 22 MMOL/L (21-32); CHLORIDE 99 MMOL/L (98-107); CREATININE SERUM 0.85 MG/DL (0.60-1.30); GFR ESTIMATED > 60; GLUCOSE 98 MG/DL (70-105); MAGNESIUM 2.3 MG/DL (1.8-2.4); SODIUM 132 MMOL/L (135-145); TOTAL PROTEIN 7.5 GM/DL (6.4-8.2); URIC ACID 5.1 MG/DL (2.6-7.2)
== END ==
LOC: LAB 13:03
PROVIDERS: ATTEND Nurse Practitioner Family
DX: E87.6 Hypokalemia (principal); E83.42 Hypomagnesemia; R25.2 Cramp and spasm; M25.561 Pain in right knee; M25.562 Pain in left knee
CPT/HCPCS: 36415; 80053; 83735; 84550; 85027; 85652; 86060; 86141; 86430

== ENCOUNTER 2018-06-30 17:08 | Emergency (ER) | payer BC | END 2018-06-30 18:37 | disposition home or self-care (01) | LOC: ER 17:08 ==

== ENCOUNTER → 2018-07-18 | Outpatient (CLI) | payer BC ==
[~2018-07-18] MED LIST changes: +LOSA100T57 PO; -LOSA100T8 PO; +LOSA25TA41 PO; -LOSA25TA6 PO
[2018-07-18 09:38] LABS: BUN/CREATININE RATIO 15; CALCIUM 9.7 MG/DL (8.5-10.1); CARBON DIOXIDE 22 MMOL/L (21-32); CHLORIDE 102 MMOL/L (98-107); CREATININE SERUM 0.84 MG/DL (0.60-1.30); GFR ESTIMATED > 60; GLUCOSE 117 MG/DL (70-105); MAGNESIUM 1.7 MG/DL (1.8-2.4); POTASSIUM 4.3 MMOL/L (3.6-5.0); SODIUM 133 MMOL/L (135-145)
== END ==
LOC: LAB 09:06
PROVIDERS: ATTEND Internal Medicine Cardiovascular Disease
DX: I25.10 Atherosclerotic heart disease of native coronary artery without angina pectoris (principal); I10 Essential (primary) hypertension
CPT/HCPCS: 36415; 80048; 83735

== ENCOUNTER 2018-07-22 11:44 | Emergency (ER) | payer BC, OTHER ==
[~2018-07-22] VITALS: Ht 182.9 cm; Wt 88.5 kg
[2018-07-22] MEDS ORDERED: NS IV 1000 ML 1,000 ML IV SCH (12:15)
[2018-07-22] MEDS ORDERED: MAGNESIUM 1 GM/100 ML IVPB 100 ML IV SCH (12:15)
--- NOTE | 2018-07-22 12:28 | ED General ---
General Stated Complaint: LIGHTHEADED,LEGS WEAK, STARTED MONDAY Source of Information: Patient, Family Exam Limitations: No Limitations History of Present Illness Date Seen by Provider: Jul 22, 2018 Time Seen by Provider: 12:25 Initial Comments This 62-year-old white male presents with a complaint of being lightheaded and having weakness in his legs. The patient has had multiple similar episodes in the past secondary to low magnesium and sodium from the hydrochlorothiazide that he has been using for his hypertension. Patient has had palpitations, chest pain, lateralizing neurologic complaints, associated fever or chill, or other change in medication. The patient has responded well to electrolyte replacement in the past. Allergies and Home Medications Allergies Coded Allergies: Sulfa (Sulfonamide Antibiotics) (Verified Allergy, Unknown, 05/16/18) dextromethorphan (Verified Allergy, Unknown, 05/16/18) meperidine (Unverified Adverse Reaction, Unknown, 05/16/18) Home Medications Aspirin 81 Mg Tab.chew, 81 MG PO DAILY Prescribed by: NELI MCBRIDE on 05/16/18 0848 Atorvastatin Calcium 40 Mg Tablet, 40 MG PO HS Prescribed by: NELI MCBRIDE on 05/16/18 0846 Cholecalciferol (Vitamin D3) 1,000 Unit Capsule, 1,000 UNIT PO DAILY, (Reported) Clopidogrel Bisulfate 75 Mg Tablet, 75 MG PO DAILY Prescribed by: NELI MCBRIDE on 05/16/18 0846 Diltiazem HCl 120 Mg Cap.er.24h, 120 MG PO HS, (Reported) Esomeprazole Magnesium 20 Mg Capsule.dr, 20 MG PO DAILY, (Reported) Lorazepam 0.5 Mg Tablet, 0.5 MG PO BID PRN for ANXIETY, (Reported) Losartan Potassium 100 Mg Tablet, 100 MG PO DAILY, (Reported) [place] 3 Polyunsat Fatty Acids 1,000 Mg Cap, 1,000 MG PO DAILY, (Reported) Patient Home Medication List Home Medication List Reviewed: Yes Review of Systems Review of Systems Constitutional: No chills, No fever; malaise, weakness EENTM: No no symptoms reported Respiratory: No cough Cardiovascular: No chest pain, No palpitations Gastrointestinal: No abdominal pain, No nausea, No vomiting Genitourinary: No decreased output, No dysuria, No frequency Musculoskeletal: No back pain, No joint pain Skin: No change in color, No rash Psychiatric/Neurological: No Symptoms Reported Hematologic/Lymphatic: No Symptoms Reported Immunological/Allergic: no symptoms reported Past Umflvcc-Mjaicu-Goexbt Hx Past Med/Social Hx: Reviewed Nursing Past Med/Soc Hx Patient Social History Alcohol Beverage of Choice: Beer Type Used: Cigarettes Former Smoker, Quit: May 15, 2006 2nd Hand Smoke Exposure: No Recent Foreign Travel: No Contact w/Someone Who Travel: No Recent Hopitalizations: No Seasonal Allergies Seasonal Allergies: No Past Medical History Surgeries: Yes (BACK, HERNIAS, FACE LACERATION, ) Abdominal, Appendectomy, Gallbladder, Orthopedic Respiratory: No Cardiac: Yes Hypertension, Irregular Heartbeat, Palpitations Neurological: No Reproductive Disorders: No HIV/AIDS: No Genitourinary: No Gastrointestinal: Yes (TAKES PRILOSEC) Gastroesophageal Reflux, Diverticulosis Musculoskeletal: Yes (BACK SURGERY; L1 COMPRESSION FX WITH KYPHOPLASTY 01/2015 , ) Chronic Back Pain Endocrine: No HEENT: No Loss of Vision: Bilateral Hearing Impairment: Denies Cancer: No Psychosocial: Yes Anxiety Integumentary: No Blood Disorders: Yes (tularemia) Adverse Reaction/Blood Tranf: No Family Medical History No Pertinent Family Hx Physical Exam Vital Signs Capillary Refill : Height, Weight, BMI Height: 6'0" Weight: 190lbs. 0.0oz. [id number]; 25.8 BMI Method:Stated General Appearance: No Apparent Distress, WD/WN HEENT: Normal ENT Inspection Neck: Normal Inspection, Non Tender Respiratory: Lungs Clear, Normal Breath Sounds Cardiovascular: Regular Rate, Rhythm, No Murmur Gastrointestinal: Normal Bowel Sounds Neurologic/Psychiatric: Alert, Oriented x3, No Motor/Sensory Deficits Skin: Normal Color, Warm/Dry Progress/Results/Core Measures Suspected Sepsis SIRS Temperature: Pulse: Respiratory Rate: Laboratory Tests 07/22/18 12:35: White Blood Count 8.1 Blood Pressure / Mean: Laboratory Tests 07/22/18 12:35: Creatinine 0.83, Platelet Count 270, Total Bilirubin 1.2H Results/Orders Lab Results Laboratory Tests Test 07/22/18 12:35 Range/Units White Blood Count 8.1 4.3-11.0 10^3/uL Red Blood Count 4.29 L 4.35-5.85 10^6/uL Hemoglobin 13.1 L 13.3-17.7 G/DL Hematocrit 36 L 40-54 % Mean Corpuscular Volume 85 80-99 FL Mean Corpuscular Hemoglobin 31 25-34 PG Mean Corpuscular Hemoglobin Concent 36 32-36 G/DL Red Cell Distribution Width 12.7 10.0-14.5 % Platelet Count 270 130-400 10^3/uL Mean Platelet Volume 9.5 7.4-10.4 FL Neutrophils (%) (Auto) 75 42-75 % Lymphocytes (%) (Auto) 13 12-44 % Monocytes (%) (Auto) 9 0-12 % Eosinophils (%) (Auto) 3 0-10 % Basophils (%) (Auto) 0 0-10 % Neutrophils # (Auto) 6.0 1.8-7.8 X 10^3 Lymphocytes # (Auto) 1.1 1.0-4.0 X 10^3 Monocytes # (Auto) 0.7 0.0-1.0 X 10^3 Eosinophils # (Auto) 0.2 0.0-0.3 10^3/uL Basophils # (Auto) 0.0 0.0-0.1 10^3/uL Sodium Level 128 L 135-145 MMOL/L Potassium Level 4.4 3.6-5.0 MMOL/L Chloride Level 95 L 98-107 MMOL/L Carbon Dioxide Level 24 21-32 MMOL/L Anion Gap 9 5-14 MMOL/L Blood Urea Nitrogen 12 7-18 MG/DL Creatinine 0.83 0.60-1.30 MG/DL Estimat Glomerular Filtration Rate > 60 BUN/Creatinine Ratio 14 Glucose Level 114 H 70-105 MG/DL Calcium Level 9.6 8.5-10.1 MG/DL Corrected Calcium 9.4 8.5-10.1 MG/DL Magnesium Level 1.8 1.8-2.4 MG/DL Total Bilirubin 1.2 H 0.1-1.0 MG/DL Aspartate Amino Transf (AST/SGOT) 22 5-34 U/L Alanine Aminotransferase (ALT/SGPT) 30 0-55 U/L Alkaline Phosphatase 70 40-136 U/L Total Protein 6.9 6.4-8.2 GM/DL Albumin 4.3 3.2-4.5 GM/DL My Orders Orders - CLAIRE JONES MD Cbc With Automated Diff (07/22/18 12:07) Comprehensive Metabolic Panel (07/22/18 12:07) Magnesium (07/22/18 12:07) Ns Iv 1000 Ml (Sodium Chloride 0.9%) (07/22/18 12:15) Magnesium 1 Gm/100 Ml Ivpb (Magnesium [place] (07/22/18 12:15) Ekg Tracing (07/22/18 12:09) Vital Signs/I&O Capillary Refill : Critical Care Note Critical Care Start Time: 13:52 Stop Time: 13:52 Total Time (minutes) The patient's laboratory evaluation demonstrated a hyponatremia and hypo- Gray see me. Patient received IV magnesium and saline. I discussed at length with the patient desire to find an antihypertensive regimen that did not involve a diuretic. I recommended patient follow up closely with his primary care physician on Monday for consideration for consultation concerning his antihypertensives. Departure Impression Primary Impression: Hyponatremia Additional Impression: MAGNESIUM DEFICIENCY Disposition: 01 HOME, SELF-CARE Condition: Improved Departure-Patient Inst. Decision time for Depature: 13:54 Referrals: KAREN DEJESUS DO (PCP/Family) Primary Care Physician Patient Instructions: Hyponatremia (DC) Add. Discharge Instructions: Close follow-up with Dr. Aj tomorrow. Return if any problems or questions. Oral magnesium and sodium today. CLAIRE JONES MD Jul 22, 2018 12:28
[2018-07-22 12:48] LABS: HEMOGLOBIN 13.1 G/DL (13.3-17.7); WHITE BLOOD COUNT 8.1 10^3/uL (4.3-11.0)
[2018-07-22 12:49] LABS: BASOPHILS % (AUTO) 0 % (0-10); EOSINOPHILS # (AUTO) 0.2 10^3/uL (0.0-0.3); EOSINOPHILS % (AUTO) 3 % (0-10); HEMATOCRIT 36 % (40-54); LYMPHOCYTES # (AUTO) 1.1 X 10^3 (1.0-4.0); LYMPHOCYTES % (AUTO) 13 % (12-44); MEAN CORPUSCULAR HEMOGLOBIN 31 PG (25-34); MEAN CORPUSCULAR HGB CONC 36 G/DL (32-36); MEAN CORPUSCULAR VOLUME 85 FL (80-99); MEAN PLATELET VOLUME 9.5 FL (7.4-10.4); MONOCYTES # (AUTO) 0.7 X 10^3 (0.0-1.0); MONOCYTES % (AUTO) 9 % (0-12); NEUTROPHILS % (AUTO) 75 % (42-75); PLATELET COUNT 270 10^3/uL (130-400); RED CELL DISTRIBUTION WIDTH 12.7 % (10.0-14.5)
[2018-07-22 13:13] LABS: ALANINE AMINOTRANSFERASE 30 U/L (0-55); ALBUMIN 4.3 GM/DL (3.2-4.5); ALKALINE PHOSPHATASE 70 U/L (40-136); BILIRUBIN,TOTAL 1.2 MG/DL (0.1-1.0); BUN/CREATININE RATIO 14; CALCIUM 9.6 MG/DL (8.5-10.1); CARBON DIOXIDE 24 MMOL/L (21-32); CHLORIDE 95 MMOL/L (98-107); CREATININE SERUM 0.83 MG/DL (0.60-1.30); GFR ESTIMATED > 60; GLUCOSE 114 MG/DL (70-105); MAGNESIUM 1.8 MG/DL (1.8-2.4); POTASSIUM 4.4 MMOL/L (3.6-5.0); SODIUM 128 MMOL/L (135-145); TOTAL PROTEIN 6.9 GM/DL (6.4-8.2)
[2018-07-22 14:02] VITALS: BP 148/80
== END 2018-07-22 14:15 | disposition home or self-care (01) ==
LOC: EDUNIT# 11:44 → ER 11:46
DX: E87.1 Hypo-osmolality and hyponatremia (principal); E61.2 Magnesium deficiency; I10 Essential (primary) hypertension; K21.9 Gastro-esophageal reflux disease without esophagitis; F41.9 Anxiety disorder, unspecified; Z86.19 Personal history of other infectious and parasitic diseases; Z87.19 Personal history of other diseases of the digestive system; Z88.2 Allergy status to sulfonamides; Z88.8 Allergy status to other drugs, medicaments and biological substances; Z79.02 Long term (current) use of antithrombotics/antiplatelets; Z79.82 Long term (current) use of aspirin; Z87.891 Personal history of nicotine dependence; Z90.49 Acquired absence of other specified parts of digestive tract; Z98.890 Other specified postprocedural states
CPT/HCPCS: 36415; 80053; 83735; 85025; 93005

== ENCOUNTER → 2018-07-23 | Outpatient (CLI) | payer BC, OTHER ==
[2018-07-23 13:59] LABS: ALANINE AMINOTRANSFERASE 28 U/L (0-55); ALBUMIN 4.3 GM/DL (3.2-4.5); ALKALINE PHOSPHATASE 65 U/L (40-136); BILIRUBIN,TOTAL 1.2 MG/DL (0.1-1.0); BUN/CREATININE RATIO 10; CALCIUM 9.5 MG/DL (8.5-10.1); CARBON DIOXIDE 22 MMOL/L (21-32); CHLORIDE 97 MMOL/L (98-107); GFR ESTIMATED > 60; GLUCOSE 107 MG/DL (70-105); SODIUM 129 MMOL/L (135-145); TOTAL PROTEIN 6.9 GM/DL (6.4-8.2)
== END ==
LOC: LAB 13:28
PROVIDERS: ATTEND Nurse Practitioner Family
DX: E87.1 Hypo-osmolality and hyponatremia (principal); E83.42 Hypomagnesemia
CPT/HCPCS: 36415; 80053

== ENCOUNTER → 2018-07-30 | Outpatient (CLI) | payer BC, OTHER ==
[2018-07-30 09:44] LABS: BUN/CREATININE RATIO 13; CALCIUM 10.2 MG/DL (8.5-10.1); CARBON DIOXIDE 24 MMOL/L (21-32); CHLORIDE 98 MMOL/L (98-107); GFR ESTIMATED > 60; GLUCOSE 119 MG/DL (70-105); POTASSIUM 3.9 MMOL/L (3.6-5.0); SODIUM 133 MMOL/L (135-145)
== END ==
LOC: LAB 09:16
PROVIDERS: ATTEND Internal Medicine
DX: E87.0 Hyperosmolality and hypernatremia (principal)
CPT/HCPCS: 36415; 80048

== ENCOUNTER 2018-08-22 16:31 | Emergency (ER) | payer BC ==
[~2018-08-22] VITALS: Ht 182.9 cm; Wt 86.2 kg
[2018-08-22] MEDS ORDERED: NS IV 1000 ML 1,000 ML IV SCH (17:15)
[2018-08-22 17:16] LABS: BASOPHILS % (AUTO) 0 % (0-10); EOSINOPHILS # (AUTO) 0.3 10^3/uL (0.0-0.3); EOSINOPHILS % (AUTO) 4 % (0-10); HEMATOCRIT 38 % (40-54); HEMOGLOBIN 13.6 G/DL (13.3-17.7); LYMPHOCYTES # (AUTO) 1.7 X 10^3 (1.0-4.0); LYMPHOCYTES % (AUTO) 20 % (12-44); MEAN CORPUSCULAR HEMOGLOBIN 31 PG (25-34); MEAN CORPUSCULAR HGB CONC 36 G/DL (32-36); MEAN CORPUSCULAR VOLUME 87 FL (80-99); MEAN PLATELET VOLUME 9.6 FL (7.4-10.4); MONOCYTES # (AUTO) 0.7 X 10^3 (0.0-1.0); MONOCYTES % (AUTO) 8 % (0-12); NEUTROPHILS # (AUTO) 5.6 X 10^3 (1.8-7.8); NEUTROPHILS % (AUTO) 68 % (42-75); PLATELET COUNT 318 10^3/uL (130-400); RED CELL DISTRIBUTION WIDTH 13.9 % (10.0-14.5); WHITE BLOOD COUNT 8.3 10^3/uL (4.3-11.0)
--- NOTE | 2018-08-22 17:27 | ED General ---
General Chief Complaint: General Problems/Pain Stated Complaint: DIZZY,NAUSEA,LEG CRAMPS,SHAKY Nursing Triage Note: PT REPORTS FEELING SHAKY, DIZZY, DIAPHORETIC, NAUSEATED, AND HAVING LEG CRAMPS AT NIGHT. Nursing Sepsis Screen: No Definite Risk Source of Information: Patient Exam Limitations: No Limitations History of Present Illness Date Seen by Provider: Aug 22, 2018 Time Seen by Provider: 17:26 Initial Comments To ER with aching and cramping in calves bilaterally at night, shakiness, dizziness, intermittent nausea and loose stools for about 3 days. No fevers. Timing/Duration: 2-3 Days Severity: Moderate Associated Systoms: Malaise, Nausea/Vomiting, Weakness Allergies and Home Medications Allergies Coded Allergies: levofloxacin (Unverified Allergy, Mild, LEG/ BONE PAIN, 08/22/18) Sulfa (Sulfonamide Antibiotics) (Verified Allergy, Unknown, 08/22/18) dextromethorphan (Verified Allergy, Unknown, 08/22/18) meperidine (Unverified Adverse Reaction, Unknown, 08/22/18) Home Medications Aspirin 81 Mg Tab.chew, 81 MG PO DAILY Prescribed by: NELI MCBRIDE on 05/16/18 0848 Atorvastatin Calcium 40 Mg Tablet, 40 MG PO HS Prescribed by: NELI MCBRIDE on 05/16/18 0846 Cholecalciferol (Vitamin D3) 1,000 Unit Capsule, 1,000 UNIT PO DAILY, (Reported) Clopidogrel Bisulfate 75 Mg Tablet, 75 MG PO DAILY Prescribed by: NELI MCBRIDE on 05/16/18 0846 Diltiazem HCl 120 Mg Cap.er.24h, 120 MG PO HS, (Reported) Esomeprazole Magnesium 20 Mg Capsule.dr, 20 MG PO DAILY, (Reported) Lorazepam 0.5 Mg Tablet, 0.5 MG PO BID PRN for ANXIETY, (Reported) Losartan Potassium 100 Mg Tablet, 100 MG PO DAILY, (Reported) [place] 3 Polyunsat Fatty Acids 1,000 Mg Cap, 1,000 MG PO DAILY, (Reported) Patient Home Medication List Home Medication List Reviewed: Yes Review of Systems Review of Systems Constitutional: see HPI EENTM: see HPI Respiratory: no symptoms reported Cardiovascular: no symptoms reported Gastrointestinal: No abdominal pain; diarrhea, nausea Genitourinary: no symptoms reported Musculoskeletal: see HPI, muscle pain Skin: no symptoms reported Psychiatric/Neurological: No Symptoms Reported Hematologic/Lymphatic: No Symptoms Reported Immunological/Allergic: no symptoms reported Past Xpmwvxh-Fmphox-Luwffx Hx Patient Social History Alcohol Use: Regular Use Alcohol Beverage of Choice: Beer Recreational Drug Use: No Smoking Status: Never a Smoker Type Used: Cigarettes Former Smoker, Quit: May 15, 2006 2nd Hand Smoke Exposure: No Recent Foreign Travel: No Contact w/Someone Who Travel: No Recent Infectious Disease Expo: No Recent Hopitalizations: No Seasonal Allergies Seasonal Allergies: No Past Medical History Surgeries: Yes (BACK, HERNIAS, FACE LACERATION, ) Abdominal, Appendectomy, Cardiac, Coronary Stent, Gallbladder, Orthopedic Respiratory: No Cardiac: Yes High Cholesterol, Hypertension, Irregular Heartbeat, Palpitations Neurological: No Reproductive Disorders: No HIV/AIDS: No Genitourinary: No Gastrointestinal: Yes (TAKES PRILOSEC) Gastroesophageal Reflux, Diverticulosis Musculoskeletal: Yes (BACK SURGERY; L1 COMPRESSION FX WITH KYPHOPLASTY 01/2015 , ) Chronic Back Pain Endocrine: No HEENT: Yes Loss of Vision: Bilateral Hearing Impairment: Hard of Hearing Cancer: No Psychosocial: Yes Anxiety Integumentary: No Blood Disorders: Yes (tularemia) Adverse Reaction/Blood Tranf: No Family Medical History No Pertinent Family Hx Physical Exam Vital Signs Vital Signs - First Documented 08/22/18 16:50 Temp 97.9 Pulse 69 Resp 16 B/P (MAP) 178/91 (120) Pulse Ox 97 Capillary Refill : Less Than 3 Seconds Height, Weight, BMI Height: 6'0" Weight: 190lbs. 0.0oz. [id number]; 25.8 BMI Method:Stated General Appearance: No Apparent Distress, WD/WN Eyes: Bilateral Eye Normal Inspection, Bilateral Eye PERRL, Bilateral Eye EOMI HEENT: PERRL/EOMI, TMs Normal Neck: Full Range of Motion, Normal Inspection Respiratory: No Accessory Muscle Use, No Respiratory Distress Gastrointestinal: Normal Bowel Sounds, Non Tender, Soft Extremity: Normal Capillary Refill, Normal Inspection Neurologic/Psychiatric: Alert, Oriented x3, No Motor/Sensory Deficits Skin: Normal Color, Warm/Dry Progress/Results/Core Measures Suspected Sepsis Recent Fever Within 48 Hours: No Infection Criteria Present: None New/Unexplained Altered Menta: No Sepsis Screen: No Definite Risk SIRS Temperature:97.9 Pulse: 69 Respiratory Rate: 16 Laboratory Tests 08/22/18 17:00: White Blood Count 8.3 Blood Pressure 178 /91 Mean: 120 Laboratory Tests 08/22/18 17:00: Creatinine 0.82, Platelet Count 318, Total Bilirubin 0.7 Results/Orders Lab Results Laboratory Tests Test 08/22/18 17:00 08/22/18 17:30 Range/Units White Blood Count 8.3 4.3-11.0 10^3/uL Red Blood Count 4.36 4.35-5.85 10^6/uL Hemoglobin 13.6 13.3-17.7 G/DL Hematocrit 38 L 40-54 % Mean Corpuscular Volume 87 80-99 FL Mean Corpuscular Hemoglobin 31 25-34 PG Mean Corpuscular Hemoglobin Concent 36 32-36 G/DL Red Cell Distribution Width 13.9 10.0-14.5 % Platelet Count 318 130-400 10^3/uL Mean Platelet Volume 9.6 7.4-10.4 FL Neutrophils (%) (Auto) 68 42-75 % Lymphocytes (%) (Auto) 20 12-44 % Monocytes (%) (Auto) 8 0-12 % Eosinophils (%) (Auto) 4 0-10 % Basophils (%) (Auto) 0 0-10 % Neutrophils # (Auto) 5.6 1.8-7.8 X 10^3 Lymphocytes # (Auto) 1.7 1.0-4.0 X 10^3 Monocytes # (Auto) 0.7 0.0-1.0 X 10^3 Eosinophils # (Auto) 0.3 0.0-0.3 10^3/uL Basophils # (Auto) 0.0 0.0-0.1 10^3/uL Sodium Level 133 L 135-145 MMOL/L Potassium Level 4.0 3.6-5.0 MMOL/L Chloride Level 100 98-107 MMOL/L Carbon Dioxide Level 23 21-32 MMOL/L Anion Gap 10 5-14 MMOL/L Blood Urea Nitrogen 12 7-18 MG/DL Creatinine 0.82 0.60-1.30 MG/DL Estimat Glomerular Filtration Rate > 60 BUN/Creatinine Ratio 15 Glucose Level 121 H 70-105 MG/DL Calcium Level 9.7 8.5-10.1 MG/DL Corrected Calcium 9.4 8.5-10.1 MG/DL Total Bilirubin 0.7 0.1-1.0 MG/DL Aspartate Amino Transf (AST/SGOT) 21 5-34 U/L Alanine Aminotransferase (ALT/SGPT) 22 0-55 U/L Alkaline Phosphatase 82 40-136 U/L Total Protein 7.1 6.4-8.2 GM/DL Albumin 4.4 3.2-4.5 GM/DL Lipase 29 8-78 U/L Thyroid Stimulating Hormone (TSH) 2.26 0.35-4.94 UIU/ML Free Thyroxine 0.98 0.70-1.48 NG/DL Urine Color YELLOW Urine Clarity SLIGHTLY CLOUDY Urine pH 6.5 5-9 Urine Specific [place] 1.015 L 1.016-1.022 Urine Protein NEGATIVE NEGATIVE Urine Glucose (UA) NEGATIVE NEGATIVE Urine Ketones NEGATIVE NEGATIVE Urine Nitrite NEGATIVE NEGATIVE Urine Bilirubin NEGATIVE NEGATIVE Urine Urobilinogen NORMAL NORMAL MG/DL Urine Leukocyte Esterase NEGATIVE NEGATIVE Urine RBC (Auto) NEGATIVE NEGATIVE Urine RBC NONE /HPF Urine WBC NONE /HPF Urine Crystals NONE /LPF Urine Bacteria NEGATIVE /HPF Urine Casts NONE /LPF Urine Mucus NEGATIVE /LPF Urine Culture Indicated NO My Orders Orders - MAGNO FOLEY APRN Cbc With Automated Diff (08/22/18 17:10) Comprehensive Metabolic Panel (08/22/18 17:10) Lipase (08/22/18 17:10) Iv [place]ock-Insert (Order) (08/22/18 17:10) Thyroid Stimulating Hormone (08/22/18 17:10) Free T4 (Free Thyroxine) (08/22/18 17:10) Ns Iv 1000 Ml (Sodium Chloride 0.9%) (08/22/18 17:15) Ua Culture If Indicated (08/22/18 17:14) Vital Signs/I&O 08/22/18 16:50 Temp 97.9 Pulse 69 Resp 16 B/P (MAP) 178/91 (120) Pulse Ox 97 Capillary Refill : Less Than 3 Seconds Blood Pressure Mean: 120 Departure Communication (Admissions) 1919-states that he still feels a bit dizzy. The dizziness goes away when he sits peripherally still and does not move his eyes but when he moves his eyes do track an object or moves his head at all he becomes very dizzy. Impression Primary Impression: Weakness Additional Impression: Leg cramps Disposition: 01 HOME, SELF-CARE Condition: Stable Departure-Patient Inst. Decision time for Depature: 17:54 Referrals: KAREN NGUYEN DO (PCP/Family) Primary Care Physician Patient Instructions: Generalized Weakness Add. Discharge Instructions: 1. Return to ER for any worsening symptoms 2. Follow-up with Dr. Nguyen next week. All discharge instructions reviewed with patient and/or family. Voiced understanding. Scripts Meclizine HCl (Meclizine HCl) 25 Mg Tablet 0.5 TAB PO TID PRN for DIZZINESS, #10 TAB Prov: MAGNO FOLEY APRN 08/22/18 Work/School Note: Work Release Form Date Seen in the Emergency Department: Aug 22, 2018 Return to Work: Aug 25, 2018 MAGNO FOLEY APRN Aug 22, 2018 17:27
[2018-08-22 17:29] LABS: ALANINE AMINOTRANSFERASE 22 U/L (0-55); ALBUMIN 4.4 GM/DL (3.2-4.5); ALKALINE PHOSPHATASE 82 U/L (40-136); BILIRUBIN,TOTAL 0.7 MG/DL (0.1-1.0); BUN/CREATININE RATIO 15; CALCIUM 9.7 MG/DL (8.5-10.1); CARBON DIOXIDE 23 MMOL/L (21-32); CHLORIDE 100 MMOL/L (98-107); CREATININE SERUM 0.82 MG/DL (0.60-1.30); GFR ESTIMATED > 60; GLUCOSE 121 MG/DL (70-105); LIPASE 29 U/L (8-78); SODIUM 133 MMOL/L (135-145); TOTAL PROTEIN 7.1 GM/DL (6.4-8.2)
[2018-08-22 17:49] LABS: FREE T4 (FREE THYROXINE) 0.98 NG/DL (0.70-1.48)
[2018-08-22 17:56] LABS: BILIRUBIN,URINE NEGATIVE (NEGATIVE); CLARITY,URINE SLIGHTLY CLOUDY; COLOR,URINE YELLOW; GLUCOSE, URINE (UA) NEGATIVE (NEGATIVE); KETONES,URINE NEGATIVE (NEGATIVE); LEUKOCYTE ESTERASE ,URINE NEGATIVE (NEGATIVE); NITRITE,URINE NEGATIVE (NEGATIVE); PH,URINE 6.5 (5-9); PROTEIN,URINE NEGATIVE (NEGATIVE); UROBILINOGEN,URINE NORMAL (NORMAL)
[2018-08-22 18:16] LABS: BACTERIA,URINE NEGATIVE /HPF
--- NOTE | 2018-08-22 18:55 | NUR ---
REPORT TO GIANNA RAINEY
[2018-08-22] MEDS ORDERED: MECL-106 PO (19:20)
[2018-08-22] MEDS ORDERED: MECLIZINE 25 MG (ANTIVERT) TAB PO PRN (19:30)
[2018-08-22 19:35] VITALS: BP 163/89
== END 2018-08-22 19:40 | disposition home or self-care (01) ==
LOC: EDUNIT# 16:31 → ER 16:32
DX: R53.1 Weakness (principal); R25.2 Cramp and spasm; E78.00 Pure hypercholesterolemia, unspecified; I10 Essential (primary) hypertension; K21.9 Gastro-esophageal reflux disease without esophagitis; F41.9 Anxiety disorder, unspecified; Z86.19 Personal history of other infectious and parasitic diseases; Z87.19 Personal history of other diseases of the digestive system; Z86.79 Personal history of other diseases of the circulatory system; Z88.2 Allergy status to sulfonamides; Z88.8 Allergy status to other drugs, medicaments and biological substances; Z79.82 Long term (current) use of aspirin; Z79.02 Long term (current) use of antithrombotics/antiplatelets; Z87.891 Personal history of nicotine dependence; Z98.890 Other specified postprocedural states; Z90.49 Acquired absence of other specified parts of digestive tract; Z95.5 Presence of coronary angioplasty implant and graft
CPT/HCPCS: 36415; 80053; 81000; 83690; 84439; 84443; 85025; 93005

== ENCOUNTER → 2018-08-31 | Outpatient (CLI) | payer BC, OTHER ==
[~2018-08-31] MED LIST changes: +MECL-106 PO
--- NOTE | 2018-08-31 15:30 | Diagnostic Imaging Report ---
PROCEDURE: US carotid duplex, bilateral. INDICATION: Dizziness, weakness, hypertension. Vertigo. TECHNIQUE: Multiple real-time grayscale images were obtained over the carotid arteries in various projections, bilaterally. Additional spectral analysis and color Doppler duplex images were also obtained. INDICATION: FINDINGS: Color images demonstrate mild scattered plaque formation. This is most pronounced at the level of the carotid bifurcations. Common carotid arteries: Patent. There are no abnormally elevated velocities to suggest a hemodynamically significant stenosis. Internal carotid arteries: Patent. There are no abnormally elevated velocities to suggest a hemodynamically significant stenosis. External carotid arteries: Patent. Asymmetric elevated velocity in the right external carotid artery. Vertebral arteries: Patent and with antegrade direction of flow. Parameters based on the consensus panel [employer]-Scale and Doppler ultrasound criteria published April 2003, Radiology, Volume 229. DOPPLER (peak systolic velocity M/S Right Left CCA 55.8 66.2 ICA Proximal 61.9 47.3 ICA Mid 59.6 60.6 ICA Distal 65.5 75.1 RATIO 1.17 0.92 ECA 181 67.7 VERT 40.8 32.7 IMPRESSION: 1. Carotid Doppler imaging demonstrates no findings to suggest a hemodynamically significant stenosis of the internal carotid arteries at this time. Increased velocity right external carotid artery suggesting at least mild narrowing. Dictated by: Dictated on workstation # [id number]
--- NOTE | 2018-08-31 16:08 | Diagnostic Imaging Report ---
PROCEDURE: US Bilateral lower extremity arterial. TECHNIQUE: Multiple real-time grayscale images are obtained through both lower extremity arterial systems with color Doppler imaging and color Doppler spectral analysis. INDICATION: History of hypertension and coronary artery disease. Bilateral lower extremity cramping. FINDINGS: The lower extremities are patent to the level of the ankles via the posterior tibial and dorsalis pedis arteries. Relatively normal high resistance triphasic waveforms with a few areas of biphasic waveforms are present. There is slight asymmetrically elevated velocity at the distal aspect of right superficial femoral artery at 154 cm/s decreasing to 75 cm/s in the popliteal artery raising concern for potential mild area of narrowing. Otherwise, no significant velocity change is suggested. Probable mildly prominent fatty radha containing lymph node in right inguinal region. IMPRESSION: 1. There is slight asymmetric velocity change at the distal aspect of the right superficial femoral artery to the right popliteal artery which could be reflective of mild narrowing. Otherwise, no significant stenosis suggested. Dictated by: Dictated on workstation # [id number]
== END ==
LOC: RAD 13:11
PROVIDERS: ATTEND Internal Medicine
DX: F41.9 Anxiety disorder, unspecified (principal); I10 Essential (primary) hypertension; I25.10 Atherosclerotic heart disease of native coronary artery without angina pectoris; K21.9 Gastro-esophageal reflux disease without esophagitis; M99.03 Segmental and somatic dysfunction of lumbar region; M99.04 Segmental and somatic dysfunction of sacral region; R25.2 Cramp and spasm
CPT/HCPCS: 93880; 93925

== ENCOUNTER 2018-11-17 10:02 | Emergency (ER) | payer BC, OTHER ==
[~2018-11-17] VITALS: Ht 182.9 cm; Wt 86.2 kg
--- NOTE | 2018-11-17 11:39 | ED Cardiac General ---
History of Present Illness General Chief Complaint: Cardiac/General Problems Stated Complaint: HIGH BP 180/90 - ACHING - NAUSEA Nursing Triage Note: PT STATES HE HAS HAD A TICK BITE IN THE PAST WITH DX OF TULIRIMIA. PT STATES HE FEELS LIKE THOSE SYMPTOMS HAVE RETURNED. PT UNAWARE OF NEW TICK BITE. PT STATES ABD PAIN NAUSEA, FLUSHING, HTN AND CONSTIPATION. 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 PT TAKES DAILY LOSARTIN. Source: patient Exam Limitations: no limitations History of Present Illness Date Seen by Provider: Nov 17, 2018 Time Seen by Provider: 11:39 Initial Comments 62-year-old male who presents to the emergency room with complaints of hypert ension, nausea, flushing. He reports that he's had similar symptoms when he had a diagnosis of tularemia. He reports that he is unsure if she's had a tick bite in the past. He sees Dr. Nguyen for his primary care. Timing/Duration: 1-2 days Associated Systoms: Nausea/Vomiting Allergies and Home Medications Allergies Coded Allergies: levofloxacin (Unverified Allergy, Mild, LEG/ BONE PAIN, 08/22/18) Sulfa (Sulfonamide Antibiotics) (Verified Allergy, Unknown, 08/22/18) dextromethorphan (Verified Allergy, Unknown, 08/22/18) meperidine (Unverified Adverse Reaction, Unknown, 08/22/18) Home Medications Aspirin 81 Mg Tab.chew, 81 MG PO DAILY Prescribed by: NELI MCBRIDE on 05/16/18 0848 Atorvastatin Calcium 40 Mg Tablet, 40 MG PO HS Prescribed by: NELI MCBRIDE on 05/16/18 0846 Cholecalciferol (Vitamin D3) 1,000 Unit Capsule, 1,000 UNIT PO DAILY, (Reported) Clopidogrel Bisulfate 75 Mg Tablet, 75 MG PO DAILY Prescribed by: NELI MCBRIDE on 05/16/18 0846 Diltiazem HCl 120 Mg Cap.er.24h, 120 MG PO HS, (Reported) Esomeprazole Magnesium 20 Mg Capsule.dr, 20 MG PO DAILY, (Reported) Hydroxyzine Pamoate 25 Mg Capsule, 25 MG PO Q4H PRN for ANXIETY Prescribed by: MAU MOORE on 11/17/18 1450 Lorazepam 0.5 Mg Tablet, 0.5 MG PO BID PRN for ANXIETY, (Reported) Losartan Potassium 100 Mg Tablet, 100 MG PO DAILY, (Reported) Meclizine HCl 25 Mg Tablet, 0.5 TAB PO TID PRN for DIZZINESS Prescribed by: MAGNO FOLEY on 08/22/181919 [place] 3 Polyunsat Fatty Acids 1,000 Mg Cap, 1,000 MG PO DAILY, (Reported) Patient Home Medication List Home Medication List Reviewed: Yes Review of Systems Review of Systems Constitutional: see HPI; No chills, No fever EENTM: See HPI, Other (facial flushing) Cardiovascular: See HPI, Other (hypertension) All Other Systems Reviewed Negative Unless Noted: Yes Past Eaueiqr-Rvxive-Utxhjn Hx Past Med/Social Hx: Reviewed Nursing Past Med/Soc Hx Patient Social History Alcohol Use: Occasionally Uses Number of Drinks Today: AA Alcohol Beverage of Choice: Beer Recreational Drug Use: No Smoking Status: Former Smoker Type Used: Cigarettes Former Smoker, Quit: May 15, 2006 2nd Hand Smoke Exposure: No Recent Foreign Travel: No Contact w/Someone Who Travel: No Recent Infectious Disease Expo: No Recent Hopitalizations: No Physical Abuse: No Sexual Abuse: No Mistreated: No Fear: No Seasonal Allergies Seasonal Allergies: No Past Medical History Surgeries: Yes (BACK, HERNIAS, FACE LACERATION, ) Abdominal, Appendectomy, Cardiac, Coronary Stent, Gallbladder, Orthopedic Respiratory: No Cardiac: Yes High Cholesterol, Hypertension, Irregular Heartbeat, Palpitations Neurological: No Reproductive Disorders: No HIV/AIDS: No Genitourinary: No Gastrointestinal: Yes (TAKES PRILOSEC) Gastroesophageal Reflux, Diverticulosis Musculoskeletal: Yes (BACK SURGERY; L1 COMPRESSION FX WITH KYPHOPLASTY 01/2015, ) Chronic Back Pain Endocrine: No HEENT: Yes Loss of Vision: Bilateral Hearing Impairment: Hard of Hearing Cancer: No Psychosocial: Yes Anxiety Integumentary: No Blood Disorders: Yes (tularemia) Adverse Reaction/Blood Tranf: No Family Medical History Reviewed Nursing Family Hx No Pertinent Family Hx Physical Exam Vital Signs Vital Signs - First Documented 11/17/18 11:27 Temp 97.0 Pulse 59 Resp 18 B/P (MAP) 201/100 (133) Pulse Ox 99 O2 Delivery Room Air Capillary Refill : Less Than 3 Seconds Height, Weight, BMI Height: 6'0" Weight: 190lbs. 0.0oz. 86.285745ig; 25.8 BMI Method:Stated General Appearance: No Apparent Distress, WD/WN Respiratory: Chest Non Tender, Lungs Clear, Normal Breath Sounds, No Accessory Muscle Use, No Respiratory Distress Cardiovascular: Regular Rate, Rhythm, No Edema, No Gallop, No JVD, No Murmur, Normal Peripheral Pulses Gastrointestinal: Normal Bowel Sounds, No Organomegaly, No Pulsatile Mass, Non Tender Extremity: Normal Capillary Refill Neurologic/Psychiatric: Alert, Oriented x3, 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 Skin: Normal Color, Warm/Dry Progress/Results/Core Measures Results/Orders Lab Results Laboratory Tests Test 11/17/18 11:32 Range/Units White Blood Count 6.2 4.3-11.0 10^3/uL Red Blood Count 4.57 4.35-5.85 10^6/uL Hemoglobin 14.4 13.3-17.7 G/DL Hematocrit 40 40-54 % Mean Corpuscular Volume 88 80-99 FL Mean Corpuscular Hemoglobin 32 25-34 PG Mean Corpuscular Hemoglobin Concent 36 32-36 G/DL Red Cell Distribution Width 12.7 10.0-14.5 % Platelet Count 320 130-400 10^3/uL Mean Platelet Volume 10.0 7.4-10.4 FL Neutrophils (%) (Auto) 62 42-75 % Lymphocytes (%) (Auto) 24 12-44 % Monocytes (%) (Auto) 12 0-12 % Eosinophils (%) (Auto) 2 0-10 % Basophils (%) (Auto) 0 0-10 % Neutrophils # (Auto) 3.9 1.8-7.8 X 10^3 Lymphocytes # (Auto) 1.5 1.0-4.0 X 10^3 Monocytes # (Auto) 0.7 0.0-1.0 X 10^3 Eosinophils # (Auto) 0.1 0.0-0.3 10^3/uL Basophils # (Auto) 0.0 0.0-0.1 10^3/uL Sodium Level 138 135-145 MMOL/L Potassium Level 4.1 3.6-5.0 MMOL/L Chloride Level 103 98-107 MMOL/L Carbon Dioxide Level 23 21-32 MMOL/L Anion Gap 12 5-14 MMOL/L Blood Urea Nitrogen 9 7-18 MG/DL Creatinine 0.86 0.60-1.30 MG/DL Estimat Glomerular Filtration Rate > 60 BUN/Creatinine Ratio 10 Glucose Level 84 70-105 MG/DL Calcium Level 10.1 8.5-10.1 MG/DL Corrected Calcium 8.5-10.1 MG/DL Total Bilirubin 1.0 0.1-1.0 MG/DL Aspartate Amino Transf (AST/SGOT) 16 5-34 U/L Alanine Aminotransferase (ALT/SGPT) 17 0-55 U/L Alkaline Phosphatase 62 40-136 U/L Troponin I < 0.028 <0.028 NG/ML Total Protein 7.4 6.4-8.2 GM/DL Albumin 4.6 H 3.2-4.5 GM/DL My Orders Orders - MAU MOORE Troponin I (11/17/18 11:35) Chest 1 View, Ap/Pa Only (11/17/18 11:35) Ekg Tracing (11/17/18 11:35) Ed Iv/Invasive Line Start (11/17/18 11:35) Monitor-Rhythm Ecg Trace Only (11/17/18 11:35) Cbc With Automated Diff (11/17/18 11:35) Comprehensive Metabolic Panel (11/17/18 11:35) Tick Panel With Lyme Eia (11/17/18 11:35) Clonidine Tablet (Catapres Tablet) (11/17/18 12:15) Medications Given in ED Vital Signs/I&O 11/17/18 11/17/18 11:27 15:08 Temp 97.0 97.0 Pulse 59 51 Resp 18 18 B/P (MAP) 201/100 (133) 146/79 (101) Pulse Ox 99 99 O2 Delivery Room Air Blood Pressure Mean: 133 Progress Progress Note : Time: 14:45 Progress Note I have seen and evaluated the patient. I've informed him of his laboratory and imaging studies. His blood pressure has improved with Catapres. He reports that he uses Catapres from time to time at home for episodes of hypertension but did not use any recently. Agrees with plan of care, plans for discharge, return precautions were given. Departure Impression Primary Impression: Labile hypertension Disposition: 01 HOME, SELF-CARE Condition: Stable/Unchanged Departure-Patient Inst. Decision time for Depature: 14:47 Referrals: KAREN NGUYEN DO (PCP/Family) Primary Care Physician Patient Instructions: High Blood Pressure (DC) Add. Discharge Instructions: Resume your home medications as previously prescribed including your clonidine. Take the medication as directed for the anxiety. Follow-up with Dr. Nguyen's office within 1 week for recheck. Return back to the emergency room for worsening symptoms or concerns as needed. All discharge instructions reviewed with patient and/or family. Voiced understanding. Scripts Hydroxyzine Pamoate (Vistaril) 25 Mg Capsule 25 MG PO Q4H PRN for ANXIETY, #20 CAP Prov: MAU MOORE 11/17/18 MAU MOORE Nov 17, 2018 11:39
[2018-11-17 11:45] LABS: BASOPHILS % (AUTO) 0 % (0-10); EOSINOPHILS # (AUTO) 0.1 10^3/uL (0.0-0.3); EOSINOPHILS % (AUTO) 2 % (0-10); HEMATOCRIT 40 % (40-54); HEMOGLOBIN 14.4 G/DL (13.3-17.7); LYMPHOCYTES # (AUTO) 1.5 X 10^3 (1.0-4.0); LYMPHOCYTES % (AUTO) 24 % (12-44); MEAN CORPUSCULAR HEMOGLOBIN 32 PG (25-34); MEAN CORPUSCULAR HGB CONC 36 G/DL (32-36); MEAN CORPUSCULAR VOLUME 88 FL (80-99); MONOCYTES # (AUTO) 0.7 X 10^3 (0.0-1.0); MONOCYTES % (AUTO) 12 % (0-12); NEUTROPHILS # (AUTO) 3.9 X 10^3 (1.8-7.8); NEUTROPHILS % (AUTO) 62 % (42-75); PLATELET COUNT 320 10^3/uL (130-400); RED CELL DISTRIBUTION WIDTH 12.7 % (10.0-14.5); WHITE BLOOD COUNT 6.2 10^3/uL (4.3-11.0)
[2018-11-17 12:06] LABS: ALANINE AMINOTRANSFERASE 17 U/L (0-55); ALBUMIN 4.6 GM/DL (3.2-4.5); ALKALINE PHOSPHATASE 62 U/L (40-136); BUN/CREATININE RATIO 10; CALCIUM 10.1 MG/DL (8.5-10.1); CARBON DIOXIDE 23 MMOL/L (21-32); CHLORIDE 103 MMOL/L (98-107); CREATININE SERUM 0.86 MG/DL (0.60-1.30); GFR ESTIMATED > 60; GLUCOSE 84 MG/DL (70-105); POTASSIUM 4.1 MMOL/L (3.6-5.0); SODIUM 138 MMOL/L (135-145); TOTAL PROTEIN 7.4 GM/DL (6.4-8.2)
--- NOTE | 2018-11-17 12:06 | Diagnostic Imaging Report ---
EXAM: CHEST 1 VIEW, AP/PA ONLY INDICATION: Hypertension. Bodyaches. COMPARISON: Chest radiograph 05/16/2018. FINDINGS: Normal heart size and pulmonary vascularity. No dense consolidation, pleural effusion or pneumothorax. No acute osseous findings. No significant change. IMPRESSION: No acute cardiopulmonary findings. Dictated by: Dictated on workstation # [id number]
[2018-11-17] MEDS ORDERED: cloNIDine 0.2 MG (CATAPRES) TAB PO ONE (12:15)
[2018-11-17] MEDS ORDERED: HYDR25CA PO (14:50)
[2018-11-17 15:08] VITALS: BP 146/79
== END 2018-11-17 15:08 | disposition home or self-care (01) ==
LOC: EDUNIT# 10:02 → ER 10:04
DX: I10 Essential (primary) hypertension (principal); E78.00 Pure hypercholesterolemia, unspecified; K21.9 Gastro-esophageal reflux disease without esophagitis; F41.9 Anxiety disorder, unspecified; Z87.19 Personal history of other diseases of the digestive system; Z88.2 Allergy status to sulfonamides; Z88.8 Allergy status to other drugs, medicaments and biological substances; Z79.82 Long term (current) use of aspirin; Z79.02 Long term (current) use of antithrombotics/antiplatelets; Z87.891 Personal history of nicotine dependence; Z98.890 Other specified postprocedural states; Z90.49 Acquired absence of other specified parts of digestive tract; Z95.5 Presence of coronary angioplasty implant and graft
CPT/HCPCS: 36415; 71045; 80053; 84484; 85025; 86618; 86666; 86668; 86757; 93005; 93041

== ENCOUNTER 2018-11-26 09:15 | Outpatient (CLI) | payer BC ==
[~2018-11-26] VITALS: Ht 182.9 cm; Wt 86.2 kg
[~2018-11-26 09:15] MED LIST changes: +FAMO-119 PO; +HYDR25CA PO
== END 2018-11-26 10:13 | disposition home or self-care (01) ==
LOC: PREOP 09:15
PROVIDERS: ATTEND Surgery
DX: Z01.818 Encounter for other preprocedural examination (principal)

== ENCOUNTER 2018-11-26 15:00 | Emergency (ER) | payer BC ==
[~2018-11-26] VITALS: Ht 182.9 cm; Wt 86.2 kg
[2018-11-26] MEDS ORDERED: meTOprolol 5 MG/5 ML (LOPRESSOR) VIAL IV ONE (15:30)
[2018-11-26 15:42] LABS: BASOPHILS % (AUTO) 0 % (0-10); EOSINOPHILS # (AUTO) 0.2 10^3/uL (0.0-0.3); EOSINOPHILS % (AUTO) 4 % (0-10); HEMATOCRIT 40 % (40-54); HEMOGLOBIN 14.2 G/DL (13.3-17.7); LYMPHOCYTES # (AUTO) 1.2 X 10^3 (1.0-4.0); LYMPHOCYTES % (AUTO) 22 % (12-44); MEAN CORPUSCULAR HEMOGLOBIN 31 PG (25-34); MEAN CORPUSCULAR HGB CONC 35 G/DL (32-36); MEAN CORPUSCULAR VOLUME 88 FL (80-99); MEAN PLATELET VOLUME 10.5 FL (7.4-10.4); MONOCYTES # (AUTO) 0.6 X 10^3 (0.0-1.0); MONOCYTES % (AUTO) 11 % (0-12); NEUTROPHILS # (AUTO) 3.6 X 10^3 (1.8-7.8); NEUTROPHILS % (AUTO) 64 % (42-75); PLATELET COUNT 271 10^3/uL (130-400); RED CELL DISTRIBUTION WIDTH 12.5 % (10.0-14.5); WHITE BLOOD COUNT 5.6 10^3/uL (4.3-11.0)
--- NOTE | 2018-11-26 15:43 | Diagnostic Imaging Report ---
INDICATION: Elevated blood pressure. TIME OF EXAMINATION: 3:32 PM. COMPARISON: 11/17/2018. FINDINGS: The tiny nodular densities in the right mid lung appear stable. There are no infiltrates. There is no effusion or pneumothorax. The pulmonary vascularity is normal. IMPRESSION: No acute cardiopulmonary process is detected. Dictated by: Dictated on workstation # [id number]
[2018-11-26 15:57] LABS: ALANINE AMINOTRANSFERASE 18 U/L (0-55); ALBUMIN 4.4 GM/DL (3.2-4.5); ALKALINE PHOSPHATASE 67 U/L (40-136); BILIRUBIN,TOTAL 0.6 MG/DL (0.1-1.0); BUN/CREATININE RATIO 8; CARBON DIOXIDE 24 MMOL/L (21-32); CHLORIDE 104 MMOL/L (98-107); CREATININE SERUM 0.92 MG/DL (0.60-1.30); GFR ESTIMATED > 60; GLUCOSE 116 MG/DL (70-105); POTASSIUM 3.7 MMOL/L (3.6-5.0); SODIUM 138 MMOL/L (135-145)
[2018-11-26] MEDS ORDERED: ALPRAZolam 0.25 MG (XANAX) TAB PO SCH (16:30)
--- NOTE | 2018-11-26 16:31 | ED General ---
General Chief Complaint: Cardiac/General Problems Stated Complaint: ELEV BP Nursing Triage Note: Pt amb to triage w/o difficulty. a&ox4. c/o elevated bp of 188/99. Pt reports to have taken half of a clonidine @ 0700 and again at 1130 on this day. Reports headache and dizziness. Denies chest discomfort. Initial bp 207/96. Nursing Sepsis Screen: No Definite Risk Source of Information: Patient, Family Exam Limitations: No Limitations History of Present Illness Date Seen by Provider: Nov 26, 2018 Time Seen by Provider: 16:26 Initial Comments 62-year-old white male presents with elevated blood pressure, headache and dizziness, and generalized dysphoria. The patient has been compliant on diltiazem alpha-hazel and ARB. Patient has had a difficult time controlling his blood pressure. He has seen doctors Patrick and Alex. Patient has a history of coronary artery disease and has had 2 stents in the past. He is having no chest pain or shortness of breath currently. Patient relates that benzodiazepines been helpful past to help control the st ress component of his hypertension. Allergies and Home Medications Allergies Coded Allergies: levofloxacin (Unverified Allergy, Mild, LEG/ BONE PAIN, 11/26/18) Sulfa (Sulfonamide Antibiotics) (Verified Allergy, Unknown, 11/26/18) dextromethorphan (Verified Allergy, Unknown, 11/26/18) meperidine (Unverified Adverse Reaction, Unknown, 11/26/18) Home Medications Atorvastatin Calcium 40 Mg Tablet, 40 MG PO HS Prescribed by: NELI MCBRIDE on 05/16/18 0846 Cholecalciferol (Vitamin D3) 1,000 Unit Capsule, 1,000 UNIT PO DAILY, (Reported) Clopidogrel Bisulfate 75 Mg Tablet, 75 MG PO DAILY Prescribed by: NELI MCBRIDE on 05/16/18 08 Diltiazem HCl 120 Mg Cap.er.24h, 120 MG PO HS, (Reported) Famotidine 20 Mg Tablet, 20 MG PO DAILY, (Reported) Lorazepam 0.5 Mg Tablet, 0.5 MG PO BID PRN for ANXIETY, (Reported) Losartan Potassium 100 Mg Tablet, 100 MG PO DAILY, (Reported) Meclizine HCl 25 Mg Tablet, 0.5 TAB PO TID PRN for DIZZINESS Prescribed by: MAGNO FOLEY on 08/22/18 1920 Patient Home Medication List Home Medication List Reviewed: Yes Review of Systems Review of Systems Constitutional: No chills, No fever EENTM: No ear pain Respiratory: No cough, No short of breath Cardiovascular: No chest pain, No palpitations Gastrointestinal: No abdominal pain, No nausea, No vomiting Genitourinary: No dysuria, No frequency Musculoskeletal: No back pain, No joint swelling Skin: No change in color, No rash Psychiatric/Neurological: Anxiety Hematologic/Lymphatic: No Symptoms Reported Immunological/Allergic: no symptoms reported Past Xhwnojn-Ogkciz-Odzlaz Hx Past Med/Social Hx: Reviewed Nursing Past Med/Soc Hx Patient Social History Alcohol Use: Regular Use Number of Drinks Today: 0 Alcohol Beverage of Choice: Beer Recreational Drug Use: No Smoking Status: Former Smoker Type Used: Cigarettes Former Smoker, Quit: May 15, 2006 2nd Hand Smoke Exposure: No Recent Foreign Travel: No Contact w/Someone Who Travel: No Recent Infectious Disease Expo: No Recent Hopitalizations: No Seasonal Allergies Seasonal Allergies: No Past Medical History Surgeries: Yes (BACK, HERNIAS, FACE LACERATION, ) Abdominal, Appendectomy, Section, Coronary Stent, Gallbladder, Orthopedic Respiratory: No Cardiac: Yes (STENT X2) Coronary Artery Disease, High Cholesterol, Hypertension, Irregular Heartbeat, Palpitations Neurological: No Reproductive Disorders: No Sexually Transmitted Disease: No HIV/AIDS: No Genitourinary: No Gastrointestinal: Yes Gastroesophageal Reflux, Diverticulosis Musculoskeletal: Yes (BACK SURGERY; L1 COMPRESSION FX WITH KYPHOPLASTY 01/2015, ) Chronic Back Pain Endocrine: No HEENT: Yes (READING GLASSES) Loss of Vision: Denies Hearing Impairment: Hard of Hearing Cancer: No Psychosocial: Yes Anxiety Integumentary: No Blood Disorders: Yes (tularemia) Adverse Reaction/Blood Tranf: No Family Medical History No Pertinent Family Hx Physical Exam Vital Signs Vital Signs - First Documented 11/26/18 15:04 Temp 97.4 Pulse 61 Resp 18 B/P (MAP) 207/96 (133) Pulse Ox 99 O2 Delivery Room Air Capillary Refill : NONE Height, Weight, BMI Height: 6'0" Weight: 190lbs. 0.0oz. 86.088531xb; 25.8 BMI Method:Stated General Appearance: WD/WN, Anxious Eyes: Bilateral Eye Normal Inspection HEENT: Normal ENT Inspection Neck: Normal Inspection Respiratory: Lungs Clear, Normal Breath Sounds, No Respiratory Distress Cardiovascular: Regular Rate, Rhythm, No Edema Gastrointestinal: Normal Bowel Sounds, Non Tender, Soft Extremity: Normal Capillary Refill, Normal Inspection Neurologic/Psychiatric: Oriented x3, No Motor/Sensory Deficits Skin: Normal Color, Warm/Dry Progress/Results/Core Measures Suspected Sepsis Recent Fever Within 48 Hours: No Infection Criteria Present: None New/Unexplained Altered Menta: No Sepsis Screen: No Definite Risk SIRS Temperature:97.4 Pulse: 61 Respiratory Rate: 18 Laboratory Tests 11/26/18 15:15: White Blood Count 5.6 Blood Pressure 207 /96 Mean: 133 Laboratory Tests 11/26/18 15:15: Creatinine 0.92, Platelet Count 271, Total Bilirubin 0.6 Results/Orders Lab Results Laboratory Tests Test 11/26/18 15:15 Range/Units White Blood Count 5.6 4.3-11.0 10^3/uL Red Blood Count 4.55 4.35-5.85 10^6/uL Hemoglobin 14.2 13.3-17.7 G/DL Hematocrit 40 40-54 % Mean Corpuscular Volume 88 80-99 FL Mean Corpuscular Hemoglobin 31 25-34 PG Mean Corpuscular Hemoglobin Concent 35 32-36 G/DL Red Cell Distribution Width 12.5 10.0-14.5 % Platelet Count 271 130-400 10^3/uL Mean Platelet Volume 10.5 H 7.4-10.4 FL Neutrophils (%) (Auto) 64 42-75 % Lymphocytes (%) (Auto) 22 12-44 % Monocytes (%) (Auto) 11 0-12 % Eosinophils (%) (Auto) 4 0-10 % Basophils (%) (Auto) 0 0-10 % Neutrophils # (Auto) 3.6 1.8-7.8 X 10^3 Lymphocytes # (Auto) 1.2 1.0-4.0 X 10^3 Monocytes # (Auto) 0.6 0.0-1.0 X 10^3 Eosinophils # (Auto) 0.2 0.0-0.3 10^3/uL Basophils # (Auto) 0.0 0.0-0.1 10^3/uL Sodium Level 138 135-145 MMOL/L Potassium Level 3.7 3.6-5.0 MMOL/L Chloride Level 104 98-107 MMOL/L Carbon Dioxide Level 24 21-32 MMOL/L Anion Gap 10 5-14 MMOL/L Blood Urea Nitrogen 7 7-18 MG/DL Creatinine 0.92 0.60-1.30 MG/DL Estimat Glomerular Filtration Rate > 60 BUN/Creatinine Ratio 8 Glucose Level 116 H 70-105 MG/DL Calcium Level 10.0 8.5-10.1 MG/DL Corrected Calcium 9.7 8.5-10.1 MG/DL Total Bilirubin 0.6 0.1-1.0 MG/DL Aspartate Amino Transf (AST/SGOT) 15 5-34 U/L Alanine Aminotransferase (ALT/SGPT) 18 0-55 U/L Alkaline Phosphatase 67 40-136 U/L Troponin I < 0.028 <0.028 NG/ML Total Protein 7.0 6.4-8.2 GM/DL Albumin 4.4 3.2-4.5 GM/DL My Orders Orders - CLAIRE JONES MD Ekg Tracing (11/26/18 15:16) Chest 1 View, Ap/Pa Only (11/26/18 15:16) Troponin I (11/26/18 15:16) Comprehensive Metabolic Panel (11/26/18 15:16) Cbc And Manual Diff (11/26/18 15:16) Metoprolol Tartrate Injection (Lopressor (11/26/18 15:30) Alprazolam Tablet (Xanax Tablet) (11/26/18 16:30) Medications Given in ED Current Medications Medications Dose Ordered Sig/Ankita Route Start Time Stop Time Status Last Admin Dose Admin Metoprolol Tartrate 5 mg ONCE ONCE IV 11/26/18 15:30 11/26/18 15:32 DC 11/26/18 15:32 5 MG Vital Signs/I&O 11/26/18 15:04 Temp 97.4 Pulse 61 Resp 18 B/P (MAP) 207/96 (133) Pulse Ox 99 O2 Delivery Room Air Capillary Refill : NONE Blood Pressure Mean: 133 Progress Note : Time: 16:31 Progress Note The patient's elevated blood pressure temporarily improved with metoprolol 5 mg IV. 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 Review of that anxiety is a significant component to the patient's elevated blood pressure. Patient received Xanax 0.125 mg by mouth. Again, after further prolonged discussion with the patient it was determined patient is not taking his clonidine. I encouraged the patient to take his clonidine with his low certain and [place]. Patient and his will follow-up with Dr. Alvarez with whom I spoke. Departure Impression Primary Impression: HTN (hypertension) Qualified Codes: I10 - Essential (primary) hypertension Disposition: HOME, SELF-CARE Condition: Improved Departure-Patient Inst. Decision time for Depature: 16:50 Referrals: MIQUEL MILES MD FACP [facility] KAREN DEJESUS DO (PCP/Family) Primary Care Physician Patient Instructions: High Blood Pressure (DC) Add. Discharge Instructions: Take your clonidine daily with your losartan and diltiazem. Close follow-up with Dr. Alvarez. Return if any problems. Xanax for anxiety as needed. All discharge instructions reviewed with patient and/or family. Voiced understanding. CLAIRE JONES MD Nov 26, 2018 16:31
[2018-11-26 16:37] LABS: BAND NEUTROPHILS 0 %; BASOPHILS % (MANUAL) 0 %; EOSINOPHILS % (MANUAL) 3 %; LYMPHOCYTES % (MANUAL) 18 %; MONOCYTES % (MANUAL) 9 %; NEUTROPHILS % (MANUAL) 67 %; RBC MORPH NORMAL; REACTIVE LYMPHOCYTES 3 %
[2018-11-26 16:52] VITALS: BP 175/93
== END 2018-11-26 17:09 | disposition home or self-care (01) ==
LOC: EDUNIT# 15:00 → ER 15:01
DX: I10 Essential (primary) hypertension (principal); I25.10 Atherosclerotic heart disease of native coronary artery without angina pectoris; E78.00 Pure hypercholesterolemia, unspecified; K21.9 Gastro-esophageal reflux disease without esophagitis; F41.9 Anxiety disorder, unspecified; Z86.19 Personal history of other infectious and parasitic diseases; Z87.19 Personal history of other diseases of the digestive system; Z95.5 Presence of coronary angioplasty implant and graft; Z88.2 Allergy status to sulfonamides; Z88.8 Allergy status to other drugs, medicaments and biological substances; Z88.1 Allergy status to other antibiotic agents; Z79.02 Long term (current) use of antithrombotics/antiplatelets; Z87.891 Personal history of nicotine dependence; Z90.49 Acquired absence of other specified parts of digestive tract; Z98.890 Other specified postprocedural states
CPT/HCPCS: 36415; 71045; 80053; 84484; 85007; 85027; 93005

== ENCOUNTER → 2018-12-11 | Outpatient (CLI) | payer BC, OTHER ==
[~2018-12-11] MED LIST changes: +ALPR0.5T PO; +GADOBUTROL 10 MMOL/10 ML (GADAVIST) VIAL IV ONE; +PANT40TA2 PO
--- NOTE | 2018-12-11 16:15 | Diagnostic Imaging Report ---
PROCEDURE: MR imaging of the brain with and without contrast. TECHNIQUE: Multiplanar, multisequence MR imaging of the brain was performed with and without contrast. INDICATION: Headache and dizziness. FINDINGS: The ventricles and sulci are within normal limits. There is no hydrocephalus. There is no midline shift. There is no intracranial mass, hemorrhage, or extra-axial fluid collection. There are no areas of diffusion restriction appreciated to suggest an acute CVA. There are no abnormal areas of contrast enhancement. There is a mucus retention cyst and/or polyp in the left maxillary sinus. The remaining sinuses are clear. Mastoid air cells are clear. The globes and intraorbital structures are unremarkable. IMPRESSION: No acute intracranial abnormality. Mucus retention cyst and/or polyp in the left maxillary sinus. Dictated by: Dictated on workstation # [id number]
== END ==
LOC: RAD 14:49
PROVIDERS: ATTEND Psychiatry & Neurology Neurology
DX: R51 Headache (principal); R42 Dizziness and giddiness
CPT/HCPCS: 70553

== ENCOUNTER → 2019-05-24 | Outpatient (CLI) | payer BC, OTHER ==
[~2019-05-24] MED LIST changes: -GADOBUTROL 10 MMOL/10 ML (GADAVIST) VIAL IV ONE
--- NOTE | 2019-05-24 14:05 | Diagnostic Imaging Report ---
PROCEDURE: MR imaging cervical spine without contrast. INDICATION: Neck pain with bilateral arm numbness and tingling. TECHNIQUE: Multiplanar, multisequence MR imaging of the cervical spine was performed without contrast. CORRELATION STUDY: None FINDINGS: There is straightening of the normal cervical lordosis. Very slight anterior wedging loss of height C5, C6 and C7 vertebral bodies, appearing nonacute. There may be a small hemangioma anterior C4 vertebral body. Odontoid intact. Craniocervical junction unremarkable. The cord is of normal caliber and signal intensity. C2-C3 level: Minimal degenerative changes of the uncovertebral joints without significant stenosis. C3-C4 level: Minimal degenerative endplate spurring. Mild effacement of the ventral thecal sac. AP dimension of the spinal canal at 9 mm. Loss of surrounding cerebrospinal fluid particularly anteriorly. Appreciable canal or foraminal narrowing. C4-C5 level: Mild degenerative changes with mild posterior spondylitic ridging. Very slight flattening of the ventral thecal sac. AP dimension of canal at 10 mm. High degree canal and/or foraminal stenosis not present. C5-C6 level: Moderate loss of disc space height. Prominent disc osteophyte formation with flattening of the ventral thecal sac. Bilateral foraminal narrowing. AP dimension of the canal at 8 mm. C6-C7 level: Preservation of disc space height. There is mild broad-based disc bulge and endplate spurring. There is also some flattening of the ventral thecal sac. Slight asymmetric left foraminal narrowing. C7-T1 level: Unremarkable. IMPRESSION: 1. Multilevel degenerative changes are present as detailed above. This does result in mild areas of both spinal canal and foraminal narrowing. High degree nerve impingement or severe spinal canal stenosis is not otherwise demonstrated. Dictated by: Dictated on workstation # [id number]
== END ==
LOC: RAD 12:35
PROVIDERS: ATTEND Family Medicine
DX: M47.812 Spondylosis without myelopathy or radiculopathy, cervical region (principal); M50.322 Other cervical disc degeneration at C5-C6 level; M48.02 Spinal stenosis, cervical region
CPT/HCPCS: 72141

== ENCOUNTER 2019-06-05 07:43 | Emergency (ER) | payer BC ==
[~2019-06-05] VITALS: Ht 182.9 cm; Wt 88.6 kg
[2019-06-05] MEDS ORDERED: RX-CYCLOBENZAPRINE 10 MG (FLEXERIL) TAB PPK#3 PO STA (08:18)
--- NOTE | 2019-06-05 08:29 | ED Neck-Back Pain/Injury ---
General Chief Complaint: Head/Cervical Problems Stated Complaint: NECK PAIN Source of Information: Patient Exam Limitations: No Limitations History of Present Illness Date Seen by Provider: Jun 05, 2019 Time Seen by Provider: 08:07 Initial Comments Patient presents to ER by private conveyance with his with chief complaint of stiffness in his neck, sore throat, occasional dry cough since Monday, 2 days ago. He does not have any muscle relaxants. He tried tramadol with minimal relief today. He cannot use NSAIDs because he has 2 stents. He does use topical creams and heat with minimal to moderate relief. No injury to his neck. He is going to physical therapy and been worked up by his primary care doctor Dr. Regina rodrigues for chronic neck and shoulder pain. He had an MRI last week demonstrating no severe stenosis, fracture or tumor. He has plans next week to go to the surgeon at [place] and have injections done. Today is different from his normal neck pain and does not accompanied by paresthesias or weakness. He denies any fever, chills, nausea vomiting or diarrhea. Feels like his ears are under water like he has a cold for the past 3 or 4 days. Allergies and Home Medications Allergies Coded Allergies: levofloxacin (Unverified Allergy, Mild, LEG/ BONE PAIN, 11/26/18) Sulfa (Sulfonamide Antibiotics) (Verified Allergy, Unknown, 11/26/18) dextromethorphan (Verified Allergy, Unknown, 11/26/18) meperidine (Unverified Adverse Reaction, Unknown, 11/26/18) Home Medications Alprazolam 0.5 Mg Tablet, 0.5 MG PO BID, (Reported) Cholecalciferol (Vitamin D3) 1,000 Unit Capsule, 1,000 UNIT PO DAILY, (Reported) Clopidogrel Bisulfate 75 Mg Tablet, 75 MG PO DAILY Prescribed by: NELI MCBRIDE on 05/16/18 0846 Diltiazem HCl 120 Mg Cap.er.24h, 120 MG PO HS, (Reported) Famotidine 20 Mg Tablet, 20 MG PO DAILY, (Reported) Losartan Potassium 100 Mg Tablet, 100 MG PO DAILY, (Reported) Meclizine HCl 25 Mg Tablet, 0.5 TAB PO TID PRN for DIZZINESS Prescribed by: MAGNO FOLEY on 08/22/18 1920 Pantoprazole Sodium 40 Mg Tablet.dr, 40 MG PO DAILY Prescribed by: SHANE STAHL on 11/30/18 1036 Patient Home Medication List Home Medication List Reviewed: Yes Review of Systems Constitutional: No chills, No diaphoresis EENTM: see HPI; No ear discharge, No ear pain Respiratory: cough; No phlegm, No short of breath, No wheezing Cardiovascular: No chest pain, No edema Gastrointestinal: No abdominal pain, No constipation, No diarrhea Musculoskeletal: see HPI; No joint swelling; muscle stiffness; No muscle twit jensen, No muscle weakness; neck pain All Other Systems Reviewed Negative Unless Noted: Yes Past Xwlugcb-Lwwanz-Uwhlsl Hx Patient Social History Alcohol Use: Regular Use Alcohol Beverage of Choice: Beer Recreational Drug Use: No Smoking Status: Former Smoker Type Used: Cigarettes Former Smoker, Quit: May 15, 2006 2nd Hand Smoke Exposure: No Recent Foreign Travel: No Contact w/Someone Who Travel: No Recent Hopitalizations: No Seasonal Allergies Seasonal Allergies: No Past Medical History Surgeries: Yes (BACK, HERNIAS, FACE LACERATION, ) Abdominal, Appendectomy, Section, Coronary Stent, Gallbladder, Orthopedic Respiratory: No Cardiac: Yes (STENT X2) Coronary Artery Disease, High Cholesterol, Hypertension, Irregular Heartbeat, Palpitations Neurological: No Reproductive Disorders: No Sexually Transmitted Disease: No HIV/AIDS: No Genitourinary: No Gastrointestinal: Yes Gastroesophageal Reflux, Diverticulosis Musculoskeletal: Yes (BACK SURGERY; L1 COMPRESSION FX WITH KYPHOPLASTY 01/2015, ) Chronic Back Pain Endocrine: No HEENT: Yes (READING GLASSES) Loss of Vision: Denies Hearing Impairment: Hard of Hearing Cancer: No Psychosocial: Yes Anxiety Integumentary: No Blood Disorders: Yes (tularemia) Adverse Reaction/Blood Tranf: No Family Medical History No Pertinent Family Hx Physical Exam Vital Signs Capillary Refill : Height, Weight, BMI Height: 6'0.00" Weight: 190lbs. 0.0oz. 86.888766mm; 25.8 BMI Method:Stated General Appearance: WD/WN, Mild Distress HEENT: PERRL/EOMI, Normal ENT Inspection, Pharynx Normal, Moist Mucous Membranes, TM Abnormal (L) (bilateral, mild white opacified mucus effusion without retractions or bulging. No injection or erythema. No tenderness to manipulation or examination. Canals are clear.), TM Abnormal (R) Neck: Normal Inspection, Limited Range of Motion (limited to about 15 horizontal rotation either direction.), Tender Lateral (paraspinous muscles tender palpation.) Cardiovascular: Regular Rate, Rhythm, Normal Peripheral Pulses Respiratory: Lungs Clear, Normal Breath Sounds, No Accessory Muscle Use, No Respiratory Distress Peripheral Pulses: 2+ Radial Pulses (R), 2+ Radial Pulses (L) Gastrointestinal: Normal Bowel Sounds, Non Tender, Soft Extremity: Normal Capillary Refill, Normal Inspection, No Pedal Edema Neurologic/Psychiatric: Alert, Oriented x3, No Motor/Sensory Deficits, 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 Skin: Normal Color, Warm/Dry Progress/Results/Core Measures Results/Orders My Orders Orders - MABEL BIRMINGHAM Orphenadrine Injection (Norflex Injectio (06/05/19 08:30) Hydrocodone/Apap 5/325 Tablet (Lortab 5 (06/05/19 08:30) Rx-Cyclobenzaprine Tablet (Rx-Flexeril T (06/05/19 08:18) Rx-Hydrocodone/Apap 5-325 Mg (Rx-Vicodin (06/05/19 08:30) Progress Progress Note : Time: 08:27 Progress Note He is an MRI from last week demonstrates nothing dangerous. He has a viral syndrome and now spasms of the paraspinous muscles consistent with torticollis. We will start him some muscle relaxants and since she can't tolerate NSAIDs we'll encourage heat and topical creams and give him a couple hydrocodone for breakthrough pain. Departure Impression Primary Impression: Torticollis, acute Additional Impression: Bilateral otitis media with effusion Disposition: 01 HOME, SELF-CARE Condition: Stable Departure-Patient Inst. Decision time for Depature: 08:28 Referrals: AMADO WEBB MD (PCP/Family) Primary Care Physician Patient Instructions: Torticollis, Adult, Serous Otitis Media (DC) Add. Discharge Instructions: For your ears you can leaf size picker a bottle of Flonase put 1 puff each nostril daily for the next 1-2 weeks. For your neck you can use warm moist water bottles, topical creams such as icy hot, BenGay etc. Tylenol 650 mg every 8 hours as needed for pain. Cyclobenzaprine/Flexeril one tablet every 8 hours as needed for muscle spasms/tightness of the neck. If you have severe breakthrough pain keeping you from being functional then you may use the hydrocodone one tablet every 6 hours. It will cause drowsiness especially when combined with cyclobenzaprine. In May also cause constipation and should be combined with stool softeners or laxatives daily. All discharge instructions reviewed with patient and/or family. Voiced understanding. Scripts Hydrocodone Bit/Acetaminophen (Hydrocodone/Acetaminophen 5/325mg Tablet) 1 Tab Tab 1 EACH PO Q4-6HR PRN for PAIN-MODERATE MDD 10 for 3 Days, #8 TAB 0 Refills Prov: MABEL BIRMINGHAM 06/05/19 Cyclobenzaprine HCl (Cyclobenzaprine HCl) 10 Mg Tablet 10 MG PO Q8H PRN for SPASMS, #20 TAB 0 Refills Prov: MABEL BIRMINGHAM 06/05/19 MABEL BIRMINGHAM Jun 05, 2019 08:29
[2019-06-05] MEDS ORDERED: HYDROcodone/APAP 5 MG/325 MG (LORTAB) TAB PO ONE (08:30)
[2019-06-05] MEDS ORDERED: RX-HYDROCODONE/APAP 5/325 MG #4 TAB PK PO PRN (08:30)
[2019-06-05] MEDS ORDERED: ORPHENADRINE 60 MG/2 ML (NORFLEX) AMP IM ONE (08:30)
[2019-06-05] MEDS ORDERED: CYCL10TA9 PO (08:32)
[2019-06-05] MEDS ORDERED: ACHD5005 PO (08:32)
[2019-06-05 08:41] VITALS: BP 165/86
== END 2019-06-05 08:41 | disposition home or self-care (01) ==
LOC: EDUNIT# 07:43 → ER 07:45
DX: M43.6 Torticollis (principal); H65.93 Unspecified nonsuppurative otitis media, bilateral; I10 Essential (primary) hypertension; E78.00 Pure hypercholesterolemia, unspecified; I25.10 Atherosclerotic heart disease of native coronary artery without angina pectoris; F41.9 Anxiety disorder, unspecified; K21.9 Gastro-esophageal reflux disease without esophagitis; Z88.1 Allergy status to other antibiotic agents; Z88.2 Allergy status to sulfonamides; Z88.5 Allergy status to narcotic agent; Z88.8 Allergy status to other drugs, medicaments and biological substances; Z79.02 Long term (current) use of antithrombotics/antiplatelets; Z87.891 Personal history of nicotine dependence; Z90.49 Acquired absence of other specified parts of digestive tract; Z95.5 Presence of coronary angioplasty implant and graft
CPT/HCPCS: 96372; 99284

== ENCOUNTER 2019-08-22 09:34 | Outpatient (RCR) | payer BC ==
[~2019-08-22 09:34] MED LIST changes: +CYCL10TA9 PO; -MECL-106 PO; +MECL-149 PO; -TRAM50TA2 PO; +TRM50T PO
== END 2019-11-20 | disposition home or self-care (01) ==
LOC: CARD 09:34
PROVIDERS: ATTEND Family Medicine
DX: R00.2 Palpitations (principal)

== ENCOUNTER 2019-09-17 18:15 | Emergency (ER) | payer BC ==
[~2019-09-17] VITALS: Ht 182.5 cm; Wt 88.6 kg
[2019-09-17 18:43] LABS: BASOPHILS % (AUTO) 0 % (0-10); EOSINOPHILS # (AUTO) 0.2 10^3/uL (0.0-0.3); EOSINOPHILS % (AUTO) 2 % (0-10); HEMATOCRIT 39 % (40-54); LYMPHOCYTES % (AUTO) 23 % (12-44); MEAN CORPUSCULAR HEMOGLOBIN 31 PG (25-34); MEAN CORPUSCULAR HGB CONC 36 G/DL (32-36); MEAN CORPUSCULAR VOLUME 86 FL (80-99); MEAN PLATELET VOLUME 10.3 FL (7.4-10.4); MONOCYTES # (AUTO) 0.9 X 10^3 (0.0-1.0); MONOCYTES % (AUTO) 10 % (0-12); NEUTROPHILS # (AUTO) 5.5 X 10^3 (1.8-7.8); NEUTROPHILS % (AUTO) 65 % (42-75); PLATELET COUNT 277 10^3/uL (130-400); RED CELL DISTRIBUTION WIDTH 13.6 % (10.0-14.5); WHITE BLOOD COUNT 8.5 10^3/uL (4.3-11.0)
[2019-09-17 18:54] LABS: ALBUMIN 4.6 GM/DL (3.2-4.5); CHLORIDE 103 MMOL/L (98-107); POTASSIUM 3.9 MMOL/L (3.6-5.0); SODIUM 136 MMOL/L (135-145)
[2019-09-17 18:55] LABS: CALCIUM 9.9 MG/DL (8.5-10.1)
[2019-09-17 18:56] LABS: GLUCOSE 100 MG/DL (70-105)
--- NOTE | 2019-09-17 18:56 | ED Cardiac General ---
History of Present Illness General Chief Complaint: Cardiac/General Problems Stated Complaint: HEART PALPITATIONS Nursing Triage Note: AMB TO ROOM REPORTS SINCE YESTERDAY HAS HAD INTERMITTEN PALPATIONS. DENIES ANY ON ADMIT. Source: patient Exam Limitations: no limitations History of Present Illness Date Seen by Provider: Sep 17, 2019 Time Seen by Provider: 18:53 Initial Comments To ER with reports of intermittent palpitations. This began yesterday and she has the sensation of her heart beating hard and fast lasting about 20 minutes at a time that began yesterday. He also states that when he bends down to work on the floors (employed as a [employer]) he gets flushing in his ears. Timing/Duration: changing over time Severity: moderate Activities at Onset: none Prior CP/Workup: cardiac cath NTG SL [employer]: No ASA po [employer]: No Associated Systoms: Denies Symptoms; No Chest Pain Allergies and Home Medications Allergies Coded Allergies: levofloxacin (Unverified Allergy, Mild, LEG/ BONE PAIN, 11/26/18) Sulfa (Sulfonamide Antibiotics) (Verified Allergy, Unknown, 11/26/18) dextromethorphan (Verified Allergy, Unknown, 11/26/18) meperidine (Unverified Adverse Reaction, Unknown, 11/26/18) Home Medications Alprazolam 0.5 Mg Tablet, 0.5 MG PO BID, (Reported) Cholecalciferol (Vitamin D3) 1,000 Unit Capsule, 1,000 UNIT PO DAILY, (Reported) Clopidogrel Bisulfate 75 Mg Tablet, 75 MG PO DAILY Prescribed by: NELI MCBRIDE on 05/16/18 0846 Cyclobenzaprine HCl 10 Mg Tablet, 10 MG PO Q8H PRN for SPASMS Prescribed by: MABEL BIRMINGHAM on 06/05/19 0832 Diltiazem HCl 120 Mg Cap.er.24h, 120 MG PO HS, (Reported) Famotidine 20 Mg Tablet, 20 MG PO DAILY, (Reported) Hydrocodone Bit/Acetaminophen 1 Tab Tab, 1 EACH PO Q4-6HR PRN for PAIN-MODERATE Prescribed by: MABEL BIRMINGHAM on 06/05/19 0832 Losartan Potassium 100 Mg Tablet, 100 MG PO DAILY, (Reported) Meclizine HCl 25 Mg Tablet, 0.5 TAB PO TID PRN for DIZZINESS Prescribed by: MAGNO FOLEY on 08/22/181919 Pantoprazole Sodium 40 Mg Tablet.dr 40 MG PO DAILY Prescribed by: SHANE STAHL on 11/30/18 1036 Patient Home Medication List Home Medication List Reviewed: Yes Review of Systems Review of Systems Constitutional: see HPI EENTM: No Symptoms Reported Respiratory: No Symptoms Reported Cardiovascular: See HPI; Denies Chest Pain; Irregular Heart Rate Gastrointestinal: No Symptoms Reported Genitourinary: No Symptoms Reported Musculoskeletal: no symptoms reported Skin: no symptoms reported Psychiatric/Neurological: No Symptoms Reported Past Berbytr-Vjiakl-Lkqgou Hx Patient Social History Alcohol Beverage of Choice: Beer Type Used: Cigarettes Former Smoker, Quit: May 15, 2006 2nd Hand Smoke Exposure: No Recent Foreign Travel: No Contact w/Someone Who Travel: No Recent Infectious Disease Expo: No Recent Hopitalizations: No Seasonal Allergies Seasonal Allergies: No Past Medical History Surgeries: Yes (BACK, HERNIAS, FACE LACERATION, ) Abdominal, Appendectomy, Section, Coronary Stent, Gallbladder, Orthopedic Respiratory: No Cardiac: Yes (STENT X2) Coronary Artery Disease, High Cholesterol, Hypertension, Irregular Heartbeat, Palpitations Neurological: No Reproductive Disorders: No Sexually Transmitted Disease: No HIV/AIDS: No Genitourinary: No Gastrointestinal: Yes Gastroesophageal Reflux, Diverticulosis Musculoskeletal: Yes (BACK SURGERY; L1 COMPRESSION FX WITH KYPHOPLASTY 01/2015, ) Chronic Back Pain Endocrine: No HEENT: Yes (READING GLASSES) Loss of Vision: Denies Hearing Impairment: Hard of Hearing Cancer: No Psychosocial: Yes Anxiety Integumentary: No Blood Disorders: Yes (tularemia) Adverse Reaction/Blood Tranf: No Family Medical History No Pertinent Family Hx Physical Exam Vital Signs Vital Signs - First Documented 09/17/19 18:20 Temp 37.1 Pulse 71 Resp 18 B/P (MAP) 144/85 (104) Pulse Ox 96 O2 Delivery Room Air Capillary Refill : Less Than 3 Seconds Height, Weight, BMI Height: 6'0.00" Weight: 190lbs. 0.0oz. 86.881081of; 26.00 BMI Method:Stated General Appearance: No Apparent Distress, WD/WN Neck: Full Range of Motion, Normal Inspection Respiratory: Normal Breath Sounds, No Accessory Muscle Use, No Respiratory Distress Cardiovascular: Regular Rate, Rhythm, Normal Peripheral Pulses Gastrointestinal: Normal Bowel Sounds, Non Tender, Soft Extremity: Normal Capillary Refill, Normal Inspection Neurologic/Psychiatric: Alert, Oriented x3 Skin: Normal Color, Warm/Dry Progress/Results/Core Measures Results/Orders Lab Results Laboratory Tests Test 09/17/19 18:30 Range/Units White Blood Count 8.5 4.3-11.0 10^3/uL Red Blood Count 4.50 4.35-5.85 10^6/uL Hemoglobin 14.0 13.3-17.7 G/DL Hematocrit 39 L 40-54 % Mean Corpuscular Volume 86 80-99 FL Mean Corpuscular Hemoglobin 31 25-34 PG Mean Corpuscular Hemoglobin Concent 36 32-36 G/DL Red Cell Distribution Width 13.6 10.0-14.5 % Platelet Count 277 130-400 10^3/uL Mean Platelet Volume 10.3 7.4-10.4 FL Neutrophils (%) (Auto) 65 42-75 % Lymphocytes (%) (Auto) 23 12-44 % Monocytes (%) (Auto) 10 0-12 % Eosinophils (%) (Auto) 2 0-10 % Basophils (%) (Auto) 0 0-10 % Neutrophils # (Auto) 5.5 1.8-7.8 X 10^3 Lymphocytes # (Auto) 2.0 1.0-4.0 X 10^3 Monocytes # (Auto) 0.9 0.0-1.0 X 10^3 Eosinophils # (Auto) 0.2 0.0-0.3 10^3/uL Basophils # (Auto) 0.0 0.0-0.1 10^3/uL My Orders Orders - MAGNO FOLEY NECKTIE MAKER Cbc With Automated Diff (09/17/19 18:30) Magnesium (09/17/19 18:30) Chest 1 View, Ap/Pa Only (09/17/19 18:30) Ekg Tracing (09/17/19 18:30) Comprehensive Metabolic Panel (09/17/19 18:30) Myoglobin Serum (09/17/19 18:30) Protime With Inr (09/17/19 18:30) Partial Thromboplastin Time (09/17/19 18:30) O2 (09/17/19 18:30) Monitor-Rhythm Ecg Trace Only (09/17/19 18:30) Lipid Panel (09/18/19 06:00) Ed Iv/Invasive Line Start (09/17/19 18:30) BNP (09/17/19 18:30) Troponin I (09/17/19 18:30) Vital Signs/I&O 09/17/19 18:20 Temp 37.1 Pulse 71 Resp 18 B/P (MAP) 144/85 (104) Pulse Ox 96 O2 Delivery Room Air Blood Pressure Mean: 104 Departure Impression Primary Impression: Palpitations Disposition: HOME, SELF-CARE Condition: Stable Departure-Patient Inst. Decision time for Depature: 18:55 Referrals: AMADO WEBB MD (PCP/Family) Primary Care Physician Patient Instructions: Palpitations (DC) Add. Discharge Instructions: 1. Follow-up with your material control associate as scheduled. All discharge instructions reviewed with patient and/or family. Voiced understanding. MAGNO FOLEY NECKTIE MAKER Sep 17, 2019 18:56
[2019-09-17 18:58] LABS: BILIRUBIN,TOTAL 0.9 MG/DL (0.1-1.0); CARBON DIOXIDE 20 MMOL/L (21-32)
[2019-09-17 19:00] LABS: ALKALINE PHOSPHATASE 82 U/L (40-136)
[2019-09-17 19:03] LABS: ALANINE AMINOTRANSFERASE 22 U/L (0-55); MAGNESIUM 1.6 MG/DL (1.6-2.4)
[2019-09-17 19:05] LABS: BUN/CREATININE RATIO 17; CREATININE SERUM 0.95 MG/DL (0.60-1.30); GFR ESTIMATED > 60
--- NOTE | 2019-09-17 19:06 | Diagnostic Imaging Report ---
EXAMINATION: Chest 1 view HISTORY: Intermittent palpitations COMPARISON: 11/26/2018 FINDINGS: The lungs are clear without edema or pneumonia. No pleural effusion or pneumothorax. Heart size is normal. IMPRESSION: 1. Clear lungs. Dictated by: Dictated on workstation # [id number]
[2019-09-17 19:43] VITALS: BP 149/80
[2019-09-17 19:57] LABS: INR 0.9 (0.8-1.4); PROTHROMBIN TIME PATIENT 12.9 SEC (12.2-14.7)
--- OUTSIDE RECORDS SUMMARY | 2019-09-17 22:09 | XMS REPORT | Continuity of Care Document ---
Author Organization Unknown Address Unknown Phone Unavailable Allergies Active Description Code Type Severity Reaction Onset Reported/Identified Relationship to Patient Clinical Status Yes NKANo Known Allergies NKA Miscellaneous Allergy Unknown N/A 12/10/2005 Yes dexamethasone [id number] Jackson g Allergy Unknown HTN, POSSIBLE S 10/18/2017 Yes levofloxacin [id number] Drug Allergy Mild LEG/ BONE PAIN 11/26/2018 Yes dextromethorphan [id number] Drug Allergy Unknown N/A 11/26/2018 Yes meperidine [id number] Drug Allerg y Unknown N/A 11/26/2018 Yes Sulfa (Sulfonamide Antibiotics) [id number] Drug Allergy Unknown N/A 019 Medications There is no data. 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 11/29/2012 Ot 789.00 ABD OMINAL PAIN, UNSPECIFIED SITE 10/30/2014 Ot 401.9 10/30/2014 [...] MARY Weinstein Ot E888.9 12/03/2014 MELCHOR ALDANA READING ASSISTANT Ot 557.1 12/03/2014 MELCHOR ALDANA READING ASSISTANT Ot 562.10 12/03/2014 MELCHOR ALDANA READING ASSISTANT Ot 787.3 12/03/2014 MELCHOR ALDANA READING ASSISTANT Ot 787.91 12/03/2014 MELCHOR ALDANA READING ASSISTANT Ot 789.00 12/16/2014 Ot 401.9 12/16/2014 Ot 401.9 12/16/2014 Ot 789.00 12/16/2014 KEISHA ARANDA, MARY Weinstein Ot 401.9 12/16/2014 KEISHA ARANDA, MARY Weinstein Ot 805.4 12/16/2014 KEISHA ARANDA, MARY Weinstein Ot E000.8 12/16/2014 KEISHA ARANDA, MARY Weinstein Ot E888.9 12/16/2014 MELCHOR ALDANA READING ASSISTANT Ot 557.1 12/16/2014 MELCHOR ALDANA READING ASSISTANT Ot 562.10 12/16/2014 MELCHOR ALDANA READING ASSISTANT Ot 787.3 12/16/2014 MELCHOR ALDANA READING ASSISTANT Ot 787.91 12/16/2014 MELCHOR ALDANA READING ASSISTANT Ot 789.00 12/16/2014 KEISHA ARANDA, MARY Weinstein Ot 805.4 12/16/2014 KEISHA ARANDA, MARY Weinstein Ot E000.8 12/16/2014 KEISHA ARANDA, MARY Weinstein Ot E888.9 12/16/2014 KEISHA ARANDA, MARY Weinstein Ot 805.4 12/16/2014 KEISHA ARANDA, MARY Weinstein Ot E000.8 12/16/2014 MARY VALDES MD Ot E888.9 12/16/2014 MELCHOR ALDANA READING ASSISTANT Ot 557.1 12/16/2014 ALDANAMELCHOR READING ASSISTANT Ot 562.10 12/16/2014 ALDANAMELCHOR READING ASSISTANT Ot 787.3 12/16/2014 ALDANAMELCHOR J READING ASSISTANT Ot 787.91 12/16/2014 ALDANAMELCHOR READING ASSISTANT Ot 789.00 02/05/2015 Ot 401.9 02/05/2015 Ot 401.9 02/05/2015 Ot 789.00 02/05/2015 KEISHA ARANDA, MARY Weinstein Ot 401.9 02/05/2015 KEISHA ARANDA, MARY Weinstein Ot 805.4 02/05/2015 KEISHA ARANDA, MARY Weinstein Ot E000.8 02/05/2015 KEISHA ARANDA, MARY Weinstein Ot E888.9 02/05/2015 ALDNAAMELCHOR READING ASSISTANT Ot 557.1 02/05/2015 ALDANAMELCHOR READING ASSISTANT Ot 562.10 02/05/2015 ALDANAMELCHOR READING ASSISTANT Ot 787.3 02/05/2015 ALDANAMELCHOR READING ASSISTANT Ot 787.91 02/05/2015 ALDANAMELCHOR READING ASSISTANT Ot 789.00 02/05/2015 Ot 733.13 02/05/2015 APPLE ARANDA, IJEOMA Dickerson Ot 733.1 3 02/05/2015 APPLE ARANDA, IJEOMA Dickerson Ot V72.6 3 02/05/2015 IJEOMA CHIU MD Ot V74.8 02/05/2015 ALDANAMELCHOR READING ASSISTANT Ot 557.1 02/05/2015 ALDANAMELCHOR READING ASSISTANT Ot 562.10 02/05/2015 ALDANAMELCHOR READING ASSISTANT Ot 787.3 02/05/2015 ALDANAMELCHOR READING ASSISTANT Ot 787.91 02/05/2015 ALDANAMELCHOR READING ASSISTANT Ot 789.00 02/05/2015 KEISHA ARANDA, MARY Weinstein Ot 805.4 02/05/2015 KEISHA ARANDA, MARY Weinstein Ot E000.8 02/05/2015 KEISHA ARANDA, MARY Weinstein Ot E888.9 02/09/2015 KEISHA ARANDA, MARY Weinstein Ot 805.4 02/09/2015 KEISHA ARANDA, MARY Weinstein Ot E000.8 02/09/2015 KEISHA ARANDA, MARY Weinstein Ot E888.9 02/09/2015 MELCHOR ALDANA Tuan READING ASSISTANT Ot 557.1 02/09/2015 MELCHOR ALDANA Tuan READING ASSISTANT Ot 562.10 02/09/2015 MELCHOR ALDANA Tuan READING ASSISTANT Ot 787.3 02/09/2015 MELCHOR ALDANA Tuan READING ASSISTANT Ot 787.91 02/09/2015 MELCHOR ALDANA READING ASSISTANT Ot 789.00 02/09/2015 IJEOMA CHIU MD Ot 733.0 0 OSTEOPOROSIS NOS 02/09/2015 IJEOMA CHIU MD Ot 733.1 3 PATHOLOGIC FRACTURE, VERTEBRAE 02/09/2015 IJEOMA CHIU MD Ot M81.0 AGE-RELATED OSTEOPOROSIS W/O CURRENT PAT 02/12/2015 Ot 733.13 02/19/2015 IJEOMA CHIU MD Ot 733.1 3 02/19/2015 IJEOMA CHIU MD Ot V72.6 3 02/19/2015 IJEOMA CHIU MD Ot V74.8 03/02/2015 Ot 733.13 03/02/2015 IJEOMA CHIU MD Ot 733.1 3 03/02/2015 IJEOMA CHIU MD Ot V72.6 3 03/02/2015 IJEOMA CHIU MD Ot V74.8 03/03/2015 MARY VALDES MD Ot 805.4 03/03/2015 MARY VALDES MD Ot E000.8 03/03/2015 MARY VALDES MD Ot E888.9 03/03/2015 MARILU ALDANAFRANCISCO JAVIER TYSONP Ot 557.1 03/03/2015 HORTENCIA ALDANADOMINGO Dickerson READING ASSISTANT Ot 562.10 03/03/2015 MELCHOR ALDANA Tuan READING ASSISTANT Ot 787.3 03/03/2015 HORTENCIA ALDANADOMINGO Dickerson READING ASSISTANT Ot 787.91 03/03/2015 MARILU ALDANAFRANCISCO JAVIER TYSONP Ot 789.00 03/03/2015 Ot 733.13 03/03/2015 IJEOMA CHIU MD Ot 733.1 3 03/03/2015 IJEOMA CHIU MD Ot V72.6 3 03/03/2015 IJEOMA CHIU MD Ot V74.8 03/05/2015 KEISHA ARANDA, MARY Weinstein Ot 562.10 03/05/2015 KEISHA ARANDA, MARY Weinstein Ot 780.60 03/09/2015 Ot 733.13 03/09/2015 IJEOMA CHIU MD Ot 733.1 3 03/09/2015 IJEOMA CHIU MD Ot V72.6 3 03/09/2015 IJEOMA CHIU MD Ot V74.8 03/09/2015 IJEOMA CHIU MD Ot Z01.8 12 03/10/2015 KEISHA ARANDA, MARY L Ot 562.10 03/10/2015 KEISHA ARANDA, MARY Weinstein Ot 780.60 03/13/2015 MARY VALDES MD Ot 562.10 03/13/2015 MARY VALDES MD Ot 780.60 03/16/2015 Ot 401.9 03/16/2015 Ot 401.9 03/16/2015 Ot 789.00 03/16/2015 KEISHA ARANDA, MARY Weinstein Ot 401.9 03/16/2015 KEISHA ARANDA, MARY L Ot 805.4 03/16/2015 KEISHA ARANDA, MARY Weinstein Ot E000.8 03/16/2015 KEISHA ARANDA, MARY Js Ot E888.9 03/16/2015 MELCHOR ALDANA READING ASSISTANT Ot 557.1 03/16/2015 MELCHOR ALDANA READING ASSISTANT Ot 562.10 03/16/2015 ALDANAMELCHOR READING ASSISTANT Ot 787.3 03/16/2015 ALDANAMELCHOR READING ASSISTANT Ot 787.91 03/16/2015 ALDANAMELCHOR READING ASSISTANT Ot 789.00 03/16/2015 Ot 733.13 03/16/2015 IJEOMA CHIU MD Ot 733.1 3 03/16/2015 IJEOMA CHIU MD Ot V72.6 3 03/16/2015 IJEOMA CHIU MD Ot V74.8 03/16/2015 IJEOMA CHIU MD Ot Z01.8 12 04/13/2015 KEISHA ARANDA, MARY Weinstein Ot 562.10 04/13/2015 MARY VALDES MD Ot 780.60 04/28/2015 MARY VALDES MD Ot 562.10 04/28/2015 KEISHA ARANDA, MARY Weinstein Ot 780.60 09/08/2015 KEISHA ARANDA, MARY Weinstein Ot 805.4 09/08/2015 KEISHA ARANDA, MARY Weinstein Ot E000.8 09/08/2015 KEISHA ARANDA, MARY Weinstein Ot E888.9 09/08/2015 ALDANAMELCHOR READING ASSISTANT Ot 557.1 09/08/2015 ALDANAMELCHOR J READING ASSISTANT Ot 562.10 09/08/2015 ALDANAHORTENCIALY J READING ASSISTANT Ot 787.3 09/08/2015 ALDANAHORTENCIALY J READING ASSISTANT Ot 787.91 09/08/2015 ALDANA, MELCHOR J READING ASSISTANT Ot 789.00 09/08/2015 Ot 733.13 09/08/2015 IJEOMA CHIU MD Ot 733.1 3 09/08/2015 IJEOMA CHIU MD Ot V72.6 3 09/08/2015 IJEOMA CHIU MD Ot V74.8 09/08/2015 IJEOMA CHIU MD Ot Z01.8 12 09/08/2015 KEISHA ARANDA, MARY Weinstein Ot 562.10 09/08/2015 KEISHA ARANDA, MARY Weinstein Ot 780.60 09/08/2015 KEISHA ARANDA, MARY Weinstein Ot 805.4 09/08/2015 MARY VALDES MD Ot E000.8 09/08/2015 MARY VALDES MD Ot E888.9 09/08/2015 ALDANAMELCHOR READING ASSISTANT Ot 557.1 09/08/2015 ALDANAMELCHOR J READING ASSISTANT Ot 562.10 09/08/2015 ALDANAHORTENCIALY J READING ASSISTANT Ot 787.3 09/08/2015 ALDANAHORTENCIALY J READING ASSISTANT Ot 787.91 09/08/2015 ALDANAHORTENCIALY J READING ASSISTANT Ot 789.00 09/08/2015 Ot 733.13 09/08/2015 IJEOMA CHIU MD Ot 733.1 3 09/08/2015 IJEOMA CHIU MD Ot V72.6 3 09/08/2015 IJEOMA CHIU MD Ot V74.8 09/08/2015 IJEOMA CHIU MD Ot Z01.8 12 09/08/2015 MARY VALDES MD Ot 562.10 09/08/2015 KEISHA ARANDA, MARY L Ot 780.60 10/28/2015 KEISHA ARANDA, MARY L Ot M12.9 ARTHROPATHY, UNSPECIFIED 10/28/2015 KEISHA ARANDA, MARY Weinstein Ot M48.06 SPINAL STENOSIS, LUMBAR REGION 10/28/2015 MARY VALDES MD Ot 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, 10/28/2015 MARY VALDES MD L Ot M12.9 ARTHROPATHY, UNSPECIFIED 10/28/2015 KEISHA ARANDA, MARY L Ot M48.06 SPINAL STENOSIS, LUMBAR REGION 10/28/2015 MARY VALDES MD L Ot 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, 10/28/2015 MARY VALDES MD Ot M12.9 ARTHROPATHY, UNSPECIFIED 10/28/2015 MARY VALDES MD L Ot M48.06 SPINAL STENOSIS, LUMBAR REGION 10/28/2015 MARY VALDES MD L Ot 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, 11/02/2015 KEISHA ARANDA, MARY L Ot 805.4 FX LUMBAR VERTEBRA-CLOSE 11/02/2015 KEISHA ARANDA, MARY L Ot E000.8 OTHER EXTERNAL CAUSE STATUS 11/02/2015 KEISHA ARANDA, MARY L Ot E888.9 FALL NOS 11/02/2015 MELCHOR ALDANA READING ASSISTANT Ot 557.1 CHR VASC INSUFF INTEST 11/02/2015 MELCHOR ALDANA READING ASSISTANT Ot 562.10 DIVERTICULOSIS COLON (W/O MENT OF HEMORR 11/02/2015 MELCHOR ALDANA READING ASSISTANT Ot 787.3 FLATUL/ERUCTAT/GAS PAIN 11/02/2015 MELCHOR ALDANA READING ASSISTANT Ot 787.91 DIARRHEA 11/02/2015 MELCHOR ALDANA READING ASSISTANT Ot 789.00 ABDOMINAL PAIN, UNSPECIFIED SITE 11/02/2015 Ot 733.13 PAT HOLOGIC FRACTURE, VERTEBRAE 11/02/2015 IJEOMA CHIU MD Ot 733.1 3 PATHOLOGIC FRACTURE, VERTEBRAE 11/02/2015 IJEOMA CHIU MD Ot V72.6 3 PRE-PROCEDURAL LABORATORY EXAMINATION 11/02/2015 IJEOMA CHIU MD Ot V74.8 SCREEN-BACTERIAL DIS NEC 11/02/2015 IJEOMA CHIU MD Ot Z01.8 12 ENCOUNTER FOR PREPROCEDURAL LABORATORY E 11/02/2015 MARY VALDES MD Ot 562.10 DIVERTICULOSIS COLON (W/O MENT OF HEMORR 11/02/2015 MARY VALDES MD Ot 780.60 FEVER, UNSPECIFIED 11/02/2015 MARY VALDES MD Ot M12.9 ARTHROPATHY, UNSPECIFIED 11/02/2015 MARY VALDES MD Ot M48.06 SPINAL STENOSIS, LUMBAR REGION 11/02/2015 MARY VALDES MD Ot 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, 11/02/2015 Ot 401.9 HYPE RTENSION NOS 11/02/2015 Ot 401.9 HYPE RTENSION NOS 11/02/2015 Ot 789.00 ABD OMINAL PAIN, UNSPECIFIED SITE 11/02/2015 MARY VALDES MD Ot 401.9 HYPERTENSION NOS 11/02/2015 MARY VALDES MD Ot 805.4 FX LUMBAR VERTEBRA-CLOSE 11/02/2015 MARY VALDES MD Ot E000.8 OTHER EXTERNAL CAUSE STATUS 11/02/2015 MARY VALDES MD Ot E888.9 FALL NOS 11/02/2015 MELCHOR ALDANA READING ASSISTANT Ot 557.1 CHR VASC INSUFF INTEST 11/02/2015 MELCHOR ALDANA READING ASSISTANT Ot 562.10 DIVERTICULOSIS COLON (W/O MENT OF HEMORR 11/02/2015 MELCHOR ALDANA READING ASSISTANT Ot 787.3 FLATUL/ERUCTAT/GAS PAIN 11/02/2015 MELCHOR ALDANA READING ASSISTANT Ot 787.91 DIARRHEA 11/02/2015 MELCHOR ALDANA READING ASSISTANT Ot 789.00 ABDOMINAL PAIN, UNSPECIFIED SITE 11/02/2015 Ot 733.13 PAT HOLOGIC FRACTURE, VERTEBRAE 11/02/2015 IJEOMA CHIU MD Ot 733.1 3 PATHOLOGIC FRACTURE, VERTEBRAE 11/02/2015 IJEOMA CHIU MD Ot V72.6 3 PRE-PROCEDURAL LABORATORY EXAMINATION 11/02/2015 IJEOMA CHIU MD Ot V74.8 SCREEN-BACTERIAL DIS NEC 11/02/2015 IJEOMA CHIU MD Ot Z01.8 12 ENCOUNTER FOR PREPROCEDURAL LABORATORY E 11/02/2015 MARY [...] Ot E888.9 FALL NOS 11/25/2015 MELCHOR ALDANA READING ASSISTANT Ot 557.1 CHR VASC INSUFF INTEST 11/25/2015 MELCHOR ALDANA READING ASSISTANT Ot 562.10 DIVERTICULOSIS COLON (W/O MENT OF HEMORR 11/25/2015 MELCHOR ALDANA READING ASSISTANT Ot 787.3 FLATUL/ERUCTAT/GAS PAIN 11/25/2015 MELCHOR ALDANA READING ASSISTANT Ot 787.91 DIARRHEA 11/25/2015 MELCHOR ALDANA READING ASSISTANT Ot 789.00 ABDOMINAL PAIN, UNSPECIFIED SITE 11/25/2015 Ot 733.13 PAT HOLOGIC FRACTURE, VERTEBRAE 11/25/2015 IJEOMA CHIU MD Ot 733.1 3 PATHOLOGIC FRACTURE, VERTEBRAE 11/25/2015 IJEOMA CHIU MD Ot V72.6 3 PRE-PROCEDURAL LABORATORY EXAMINATION 11/25/2015 IJEOMA CHIU MD Ot V74.8 SCREEN-BACTERIAL DIS NEC 11/25/2015 IJEOMA CHIU MD Ot Z01.8 12 ENCOUNTER FOR PREPROCEDURAL LABORATORY E 11/25/2015 MARY VALDES MD Ot 562.10 DIVERTICULOSIS COLON (W/O MENT OF HEMORR 11/25/2015 MARY VALDES MD Ot 780.60 FEVER, UNSPECIFIED 11/25/2015 KEISHA ARANDA, MARY Weinstein Ot M12.9 ARTHROPATHY, UNSPECIFIED 11/25/2015 KEISHA ARANDA, MARY Weinstein Ot M48.06 SPINAL STENOSIS, LUMBAR REGION 11/25/2015 KEISHA ARANDA, MARY Weinstein Ot 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, 12/04/2015 KEISHA ARANDA, MARY Weinstein Ot M12.9 ARTHROPATHY, UNSPECIFIED 12/04/2015 KEISHA ARANDA, MARY Weinstein Ot M48.06 SPINAL STENOSIS, LUMBAR REGION 12/04/2015 MARY VALDES MD Ot 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, 12/17/2015 KEISHA ARANDA, MARY Weinstein Ot M12.9 ARTHROPATHY, UNSPECIFIED 12/17/2015 KEISHA ARANDA, MARY Weinstein Ot M48.06 SPINAL STENOSIS, LUMBAR REGION 12/17/2015 MARY VALDES MD Ot 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, 12/31/2015 Ot 401.9 HYPE RTENSION NOS 12/31/2015 Ot 401.9 HYPE RTENSION NOS 12/31/2015 Ot 789.00 ABD OMINAL PAIN, UNSPECIFIED SITE 12/31/2015 KEISHA ARANDA, MARY Weinstein Ot 401.9 HYPERTENSION NOS 12/31/2015 KEISHA RAANDA, MARY Weinstein Ot 805.4 FX LUMBAR VERTEBRA-CLOSE 12/31/2015 KEISHA ARANDA, MARY Weinstein Ot E000.8 OTHER EXTERNAL CAUSE STATUS 12/31/2015 KEISHA ARANDA, MARY Weinstein Ot E888.9 FALL NOS 12/31/2015 MELCHOR ALDANA READING ASSISTANT Ot 557.1 CHR VASC INSUFF INTEST 12/31/2015 MELCHOR ALDANA READING ASSISTANT Ot 562.10 DIVERTICULOSIS COLON (W/O MENT OF HEMORR 12/31/2015 MELCHOR ALDANA READING ASSISTANT Ot 787.3 FLATUL/ERUCTAT/GAS PAIN 12/31/2015 MECLHOR ALDANA READING ASSISTANT Ot 787.91 DIARRHEA 12/31/2015 MELCHOR ALDANA READING ASSISTANT Ot 789.00 ABDOMINAL PAIN, UNSPECIFIED SITE 12/31/2015 Ot 733.13 PAT HOLOGIC FRACTURE, VERTEBRAE 12/31/2015 IJEOMA CHIU MD Ot 733.1 3 PATHOLOGIC FRACTURE, VERTEBRAE 12/31/2015 IJEOMA CHIU MD Ot V72.6 3 PRE-PROCEDURAL LABORATORY EXAMINATION 12/31/2015 IJEOMA CHIU MD Ot V74.8 SCREEN-BACTERIAL DIS NEC 12/31/2015 IJEOMA CHIU MD Ot Z01.8 12 ENCOUNTER FOR PREPROCEDURAL LABORATORY E 12/31/2015 KEISHA ARANDA, MARY Weinstein Ot 562.10 DIVERTICULOSIS COLON (W/O MENT OF HEMORR 12/31/2015 KEISHA ARANDA, MARY Weinstein Ot 780.60 FEVER, UNSPECIFIED 12/31/2015 KEISHA ARANDA, MARY Weinstein Ot M12.9 ARTHROPATHY, UNSPECIFIED 12/31/2015 KEISHA ARANDA, MARY Weinstein Ot M48.06 SPINAL STENOSIS, LUMBAR REGION 12/31/2015 KEISHA ARANDA, MARY Weinstein Ot 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, 01/18/2016 BELEN BOLES MD Ot M51. 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 RADICULO 02/08/2016 BELEN BOELS MD Ot M51. 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 RADICULO 02/25/2016 BELEN BOLES MD Ot M51. 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 RADICULO 04/01/2016 KEISHA ARANDA, MARY Weinstein Ot 805.4 FX LUMBAR VERTEBRA-CLOSE 04/01/2016 KEISHA ARANDA, MARY Weinstein Ot E000.8 OTHER EXTERNAL CAUSE STATUS 04/01/2016 KEISHA ARANDA, MARY Weinstein Ot E888.9 FALL NOS 04/01/2016 MELCHOR ALDANA READING ASSISTANT Ot 557.1 CHR VASC INSUFF INTEST 04/01/2016 MELCHOR ALDANA READING ASSISTANT Ot 562.10 DIVERTICULOSIS COLON (W/O MENT OF HEMORR 04/01/2016 MELCHOR ALDANA READING ASSISTANT Ot 787.3 FLATUL/ERUCTAT/GAS PAIN 04/01/2016 MELCHRO ALDANA READING ASSISTANT Ot 787.91 DIARRHEA 04/01/2016 MELCHOR ALDANA READING ASSISTANT Ot 789.00 ABDOMINAL PAIN, UNSPECIFIED SITE 04/01/2016 Ot 733.13 PAT HOLOGIC FRACTURE, VERTEBRAE 04/01/2016 IJEOMA CHIU MD Ot 733.1 3 PATHOLOGIC FRACTURE, VERTEBRAE 04/01/2016 IJEOMA CHIU MD Ot V72.6 3 PRE-PROCEDURAL LABORATORY EXAMINATION 04/01/2016 IJEOMA CHIU MD Ot V74.8 SCREEN-BACTERIAL DIS NEC 04/01/2016 IJEOMA CHIU MD Ot Z01.8 12 ENCOUNTER FOR PREPROCEDURAL LABORATORY E 04/01/2016 KEISHA [...] DISPLACEMENT, 04/01/2016 ELVI ARANDA, BELEN Dickerson Ot M51. 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 RADICULO 04/01/2016 BELEN BOLES MD Ot M51. 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 RADICULO 04/22/2016 ELVI ARANDA, BELEN Dickerson Ot M51. 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 RADICULO 09/06/2016 KEISHA ARANDA, MARY L Ot 805.4 FX LUMBAR VERTEBRA-CLOSE 09/06/2016 KEISHA ARANDA, MARY L Ot E000.8 OTHER EXTERNAL CAUSE STATUS 09/06/2016 KEISHA ARANDA, MARY L Ot E888.9 FALL NOS 09/06/2016 MELCHOR ALDANA READING ASSISTANT Ot 557.1 CHR VASC INSUFF INTEST 09/06/2016 MELCHOR ALDANA READING ASSISTANT Ot 562.10 DIVERTICULOSIS COLON (W/O MENT OF HEMORR 09/06/2016 MELCHOR ALDANA READING ASSISTANT Ot 787.3 FLATUL/ERUCTAT/GAS PAIN 09/06/2016 MELCHOR ALDANA READING ASSISTANT Ot 787.91 DIARRHEA 09/06/2016 MELCHOR ALDANA READING ASSISTANT Ot 789.00 ABDOMINAL PAIN, UNSPECIFIED SITE 09/06/2016 Ot 733.13 PAT HOLOGIC FRACTURE, VERTEBRAE 09/06/2016 IJEOMA CHIU MD Ot 733.1 3 PATHOLOGIC FRACTURE, VERTEBRAE 09/06/2016 IJEOMA CHIU MD Ot V72.6 3 PRE-PROCEDURAL LABORATORY EXAMINATION 09/06/2016 IJEOMA CHIU MD Ot V74.8 SCREEN-BACTERIAL DIS NEC 09/06/2016 APPLE ARANDA, IJEOMA Dickerson Ot Z01.8 12 ENCOUNTER FOR PREPROCEDURAL LABORATORY E 09/06/2016 KEISHA ARANDA, MARY Weinstein Ot 562.10 DIVERTICULOSIS COLON (W/O MENT OF HEMORR 09/06/2016 KEISHA ARANDA, MARY L Ot 780.60 FEVER, UNSPECIFIED 09/06/2016 KEISHA ARANDA, MARY L Ot M12.9 ARTHROPATHY, UNSPECIFIED 09/06/2016 KEISHA ARANDA, MARY Weinstein Ot M48.06 SPINAL STENOSIS, LUMBAR REGION 09/06/2016 KEISHA ARANDA, MARY L Ot 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, 09/06/2016 BELEN BOLES MD Ot M51. 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 RADICULO 09/07/2016 KEISHA [...] OF LG INT W/O PERFORATION OR AB 08/07/2017 KEISHA ARANDA, MARY L Ot 805.4 FX LUMBAR VERTEBRA-CLOSE 08/07/2017 KEISHA ARANDA, MARY L Ot E000.8 OTHER EXTERNAL CAUSE STATUS 08/07/2017 KEISHA ARANDA, MARY L Ot E888.9 FALL NOS 08/07/2017 MELCHOR ALDANA READING ASSISTANT Ot 557.1 CHR VASC INSUFF INTEST 08/07/2017 MELCHOR ALDANA READING ASSISTANT Ot 562.10 DIVERTICULOSIS COLON (W/O MENT OF HEMORR 08/07/2017 MELCHOR ALDANA READING ASSISTANT Ot 787.3 FLATUL/ERUCTAT/GAS PAIN 08/07/2017 MELCHOR ALDANA READING ASSISTANT Ot 787.91 DIARRHEA 08/07/2017 MELCHOR ALDANA READING ASSISTANT Ot 789.00 ABDOMINAL PAIN, UNSPECIFIED SITE 08/07/2017 Ot 733.13 PAT HOLOGIC FRACTURE, VERTEBRAE 08/07/2017 IJEOMA CHIU MD Ot 733.1 3 PATHOLOGIC FRACTURE, VERTEBRAE 08/07/2017 IJEOMA CHIU MD Ot V72.6 3 PRE-PROCEDURAL LABORATORY EXAMINATION 08/07/2017 IJEOMA CHIU MD Ot V74.8 SCREEN-BACTERIAL DIS NEC 08/07/2017 IJEOMA CHIU MD Ot Z01.8 12 ENCOUNTER FOR PREPROCEDURAL LABORATORY E 08/07/2017 KEISHA ARANDA, MARY Weinstein Ot 562.10 DIVERTICULOSIS COLON (W/O MENT OF HEMORR 08/07/2017 KEISHA ARANDA, MARY Weinstein Ot 780.60 FEVER, UNSPECIFIED 08/07/2017 MARY VALDES MD Ot M12.9 ARTHROPATHY, UNSPECIFIED 08/07/2017 MARY VALDES MD Ot M48.06 SPINAL STENOSIS, LUMBAR REGION 08/07/2017 MARY VALDES MD Ot 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, 08/07/2017 ELVI ARANDA, BELEN Dickerson Ot M51. 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 RADICULO 08/07/2017 MARY VALDES MD Ot K57.30 DVRTCLOS OF LG INT W/O PERFORATION OR AB 08/18/2017 MARY VALDES MD Ot 805.4 FX LUMBAR VERTEBRA-CLOSE 08/18/2017 MARY VALDES MD Ot E000.8 OTHER EXTERNAL CAUSE STATUS 08/18/2017 KEISHA ARANDA, MARY Weinstein Ot E888.9 FALL NOS 08/18/2017 MELCHOR ALDANA READING ASSISTANT Ot 557.1 CHR VASC INSUFF INTEST 08/18/2017 MELCHOR ALDANA READING ASSISTANT Ot 562.10 DIVERTICULOSIS COLON (W/O MENT OF HEMORR 08/18/2017 MELCHOR ALDANA READING ASSISTANT Ot 787.3 FLATUL/ERUCTAT/GAS PAIN 08/18/2017 MELCHOR ALDANA READING ASSISTANT Ot 787.91 DIARRHEA 08/18/2017 MELCHOR ALDANA READING ASSISTANT Ot 789.00 ABDOMINAL PAIN, UNSPECIFIED SITE 08/18/2017 Ot 733.13 PAT HOLOGIC FRACTURE, VERTEBRAE 08/18/2017 IJEOMA CHIU MD Ot 733.1 3 PATHOLOGIC FRACTURE, VERTEBRAE 08/18/2017 IJEOMA CHIU MD Ot V72.6 3 PRE-PROCEDURAL LABORATORY EXAMINATION 08/18/2017 IJEOMA CHIU MD Ot V74.8 SCREEN-BACTERIAL DIS NEC 08/18/2017 IJEOMA CHIU MD Ot Z01.8 12 ENCOUNTER FOR PREPROCEDURAL LABORATORY E 08/18/2017 KEISHA ARANDA, MARY Weinstein Ot 562.10 DIVERTICULOSIS COLON (W/O MENT OF HEMORR 08/18/2017 MARY VALDES MD Ot 780.60 FEVER, UNSPECIFIED 08/18/2017 MARY VALDES MD Ot M12.9 ARTHROPATHY, UNSPECIFIED 08/18/2017 KEISHA ARANDA, MARY Weinstein Ot M48.06 SPINAL STENOSIS, LUMBAR REGION 08/18/2017 MARY VALDES MD Ot 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, 08/18/2017 ELVI ARANDA, BELEN Dickerson Ot M51. 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 RADICULO 08/18/2017 MARY VALDES MD Ot K57.30 DVRTCLOS OF LG INT W/O PERFORATION OR AB 08/21/2017 MARY VALDES MD Ot 805.4 FX LUMBAR VERTEBRA-CLOSE 08/21/2017 MARY VALDES MD Ot E000.8 OTHER EXTERNAL CAUSE STATUS 08/21/2017 MARY VALDES MD Ot E888.9 FALL NOS 08/21/2017 MELCHOR ALDANA READING ASSISTANT Ot 557.1 CHR VASC INSUFF INTEST 08/21/2017 MELCHOR ALDANA READING ASSISTANT Ot 562.10 DIVERTICULOSIS COLON (W/O MENT OF HEMORR 08/21/2017 MELCHOR ALDANA READING ASSISTANT Ot 787.3 FLATUL/ERUCTAT/GAS PAIN 08/21/2017 MELCHOR ALDANA READING ASSISTANT Ot 787.91 DIARRHEA 08/21/2017 MELCHOR ALDANA READING ASSISTANT Ot 789.00 ABDOMINAL PAIN, UNSPECIFIED SITE 08/21/2017 Ot 733.13 PAT HOLOGIC FRACTURE, VERTEBRAE 08/21/2017 IJEOMA CHIU MD Ot 733.1 3 PATHOLOGIC FRACTURE, VERTEBRAE 08/21/2017 IJEOMA CHIU MD Ot V72.6 3 PRE-PROCEDURAL LABORATORY EXAMINATION 08/21/2017 IJEOMA CHIU MD Ot V74.8 SCREEN-BACTERIAL DIS NEC 08/21/2017 IJEOMA CHIU MD Ot Z01.8 12 ENCOUNTER FOR PREPROCEDURAL LABORATORY E 08/21/2017 KEISHA ARANDA, MARY Weinstein Ot 562.10 DIVERTICULOSIS COLON (W/O MENT OF HEMORR 08/21/2017 KEISHA ARANDA, MARY Weinstein Ot 780.60 FEVER, UNSPECIFIED 08/21/2017 MARY VALDES MD Ot M12.9 ARTHROPATHY, UNSPECIFIED 08/21/2017 MARY VALDES MD Ot M48.06 SPINAL STENOSIS, LUMBAR REGION 08/21/2017 MARY VALDES MD Ot 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, 08/21/2017 ELVI ARANDA, BELEN Dickerson Ot M51. 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 RADICULO 08/21/2017 MARY [...] TREATMENT NOT CARRIED OUT 08/23/2017 Ot 401.9 HYPE RTENSION NOS 08/23/2017 Ot 789.00 ABD OMINAL PAIN, UNSPECIFIED SITE 08/23/2017 KEISHA ARANDA, MARY Weinstein Ot 401.9 HYPERTENSION NOS 08/23/2017 KEISHA ARANDA, MARY Weinstein Ot 805.4 FX LUMBAR VERTEBRA-CLOSE 08/23/2017 MARY VALDES MD Ot E000.8 OTHER EXTERNAL CAUSE STATUS 08/23/2017 KEISHA ARANDA, MARY Weinstein Ot E888.9 FALL NOS 08/23/2017 MELCHOR ALDANA READING ASSISTANT Ot 557.1 CHR VASC INSUFF INTEST 08/23/2017 MELCHOR ALDANA READING ASSISTANT Ot 562.10 DIVERTICULOSIS COLON (W/O MENT OF HEMORR 08/23/2017 MELCHOR ALDANA READING ASSISTANT Ot 787.3 FLATUL/ERUCTAT/GAS PAIN 08/23/2017 MELCHOR ALDANA READING ASSISTANT Ot 787.91 DIARRHEA 08/23/2017 MELCHOR ALDANA READING ASSISTANT Ot 789.00 ABDOMINAL PAIN, UNSPECIFIED SITE 08/23/2017 Ot 733.13 PAT HOLOGIC FRACTURE, VERTEBRAE 08/23/2017 IJEOMA CHIU MD Ot 733.1 3 PATHOLOGIC FRACTURE, VERTEBRAE 08/23/2017 IJEOMA CHIU MD Ot V72.6 3 PRE-PROCEDURAL LABORATORY EXAMINATION 08/23/2017 IJEOMA CHIU MD Ot V74.8 SCREEN-BACTERIAL DIS NEC 08/23/2017 IJEOMA CHIU MD, Ot Z01.8 12 ENCOUNTER FOR PREPROCEDURAL LABORATORY E 08/23/2017 KEISHA [...] Z53.8 PROCEDURE AND TREATMENT NOT CARRIED OUT 10/18/2017 Ot 789.00 ABD OMINAL PAIN, UNSPECIFIED SITE 10/18/2017 BHAKTI PANIAGUA MD Ot E87.1 HYPO-OSMOLALITY AND HYPONATREMIA 10/18/2017 BHAKTI PANIAGUA MD Ot I10 ESSENTIAL (PRIMARY) HYPERTENSION 10/18/2017 BHAKTI PANIAGUA MD Ot I16.0 HYPERTENSIVE URGENCY 10/18/2017 BHAKTI PANIAGUA MD Ot K21.9 GASTRO-ESOPHAGEAL REFLUX DISEASE WITHOUT 10/18/2017 BHAKTI PANIAGUA MD, Ot R42 DIZZINESS AND GIDDINESS 10/18/2017 BHAKTI PANIAGUA MD Ot T48.3X5A ADVERSE EFFECT OF ANTITUSSIVES, INITIAL 10/18/2017 BHAKTI PANIAGUA MD Ot Z87.81 PERSONAL HISTORY OF (HEALED) TRAUMATIC F 10/18/2017 ARCELIA ARANDA, BHAKTI Chavis Ot Z87.828 PERSONAL HISTORY OF OTH (HEALED) PHYSICA 10/18/2017 ARCELIA ARANDA, BHAKTI Chavis Ot Z87.891 PERSONAL HISTORY OF NICOTINE DEPENDENCE 10/18/2017 BHAKTI PANIAGUA MD Ot Z88.5 ALLERGY STATUS TO NARCOTIC AGENT STATUS 10/18/2017 BHAKTI PANIAGUA MD Ot Z90.49 ACQUIRED ABSENCE OF OTHER SPECIFIED PART 2017 MAGNO FOLEY APRN Ot I10 ESSENTIAL (PRIMARY) HYPERTENSION 2017 MAGNO FOLEY APRN Ot K21 .9 GASTRO-ESOPHAGEAL REFLUX DISEASE WITHOUT 2017 MAGNO FOLEY APRN Ot Z87.19 PERSONAL HISTORY OF OTHER DISEASES OF TH 2017 MAGNO FOLEY APRN Ot Z87.891 PERSONAL HISTORY OF NICOTINE DEPENDENCE 2017 MAGNO FOLEY APRN Ot Z88 .5 ALLERGY STATUS TO NARCOTIC AGENT STATUS 2017 MAGNO FOLEY APRN Ot Z88 .8 ALLERGY STATUS TO OTH DRUG/MEDS/BIOL SUB 2017 [...] OF OTHER SPECIFIED PART 01/03/2018 RYAN VAUGHAN DIRECTOR OF TEENAGE ACTIVITIES Ot I10 ESSENTIAL (PRIMARY) HYPERTENSION 01/03/2018 RYAN VAUGHAN DIRECTOR OF TEENAGE ACTIVITIES Ot R61 GENERALIZED HYPERHIDROSIS 01/06/2018 MAGNO FOLEY APRN Ot I10 ESSENTIAL (PRIMARY) HYPERTENSION 01/06/2018 MAGNO FOLEY APRN Ot K21 .9 GASTRO-ESOPHAGEAL REFLUX DISEASE WITHOUT 01/06/2018 MAGNO FOLEY APRN Ot Z87.19 PERSONAL HISTORY OF OTHER DISEASES OF TH 01/06/2018 MAGNO FOLEY APRN Ot Z88 .8 ALLERGY STATUS TO OTH DRUG/MEDS/BIOL SUB 01/06/2018 MAGNO FOLEY APRN Ot 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 OF OTHER ORGANS 01/08/2018 MAGNO FOLEY DIRECTOR OF TEENAGE ACTIVITIES Ot I10 ESSENTIAL (PRIMARY) HYPERTENSION 01/08/2018 MAGNO FOLEY APRN Ot K21 .9 GASTRO-ESOPHAGEAL REFLUX DISEASE WITHOUT 01/08/2018 MAGNO FOLEY APRN Ot Z87.19 PERSONAL HISTORY OF OTHER DISEASES OF 01/08/2018 MAGNO FOLEY APRN Ot Z88 .8 ALLERGY STATUS TO OTH DRUG/MEDS/BIOL SUB 01/08/2018 MAGNO FOLEY APRN Ot 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 OF OTHER ORGANS 01/17/2018 Ot E83.42 HYP OMAGNESEMIA 01/17/2018 Ot F41.9 ANXI ETY DISORDER, UNSPECIFIED 01/17/2018 Ot I10 ESSENT IAL (PRIMARY) HYPERTENSION 01/17/2018 Ot K21.9 BRUNO RO-ESOPHAGEAL REFLUX DISEASE WITHOUT 01/17/2018 Ot R03.0 ELEV ATED BLOOD- PRESSURE READING, W/O ARINA 01/17/2018 Ot Z87.19 PER ALESSIO HISTORY OF OTHER DISEASES OF 01/17/2018 Ot Z87.891 PE RSONAL HISTORY OF NICOTINE DEPENDENCE 01/17/2018 Ot Z88.8 KODY RGY STATUS TO OTH DRUG/MEDS/BIOL SUB 01/17/2018 Ot Z90.89 ACQ UIRED ABSENCE OF OTHER ORGANS 02/06/2018 NELI MCBRIDE READING ASSISTANT Ot I 10 ESSENTIAL (PRIMARY) HYPERTENSION 02/07/2018 KEISHA ARANDA, MARY Weinstein Ot 805.4 FX LUMBAR VERTEBRA-CLOSE 02/07/2018 MARY VALDES MD Ot E000.8 OTHER EXTERNAL CAUSE STATUS 02/07/2018 MARY VALDES MD Ot E888.9 FALL NOS 02/07/2018 MELCHOR ALDANA Ot 557.1 CHR VASC INSUFF INTEST 02/07/2018 ALDANA, MELCHOR J READING ASSISTANT Ot 562.10 DIVERTICULOSIS COLON (W/O MENT OF HEMORR 02/07/2018 MELCHOR ALDANA READING ASSISTANT Ot 787.3 FLATUL/ERUCTAT/GAS PAIN 02/07/2018 MELCHOR ALDANA READING ASSISTANT Ot 787.91 DIARRHEA 02/07/2018 MELCHOR ALDANA READING ASSISTANT Ot 789.00 ABDOMINAL PAIN, UNSPECIFIED SITE 02/07/2018 Ot 733.13 PAT HOLOGIC FRACTURE, VERTEBRAE 02/07/2018 IJEOMA CHIU MD Ot 733.1 3 PATHOLOGIC FRACTURE, VERTEBRAE 02/07/2018 IJEOMA CHIU MD Ot V72.6 3 PRE-PROCEDURAL LABORATORY EXAMINATION 02/07/2018 IJEOMA CHIU MD Ot V74.8 SCREEN-BACTERIAL DIS NEC 02/07/2018 IJEOMA CHIU MD Ot Z01.8 12 ENCOUNTER FOR PREPROCEDURAL LABORATORY E 02/07/2018 KEISHA ARANDA, MARY Weinstein Ot 562.10 DIVERTICULOSIS COLON (W/O MENT OF HEMORR 02/07/2018 KEISHA ARANDA, MARY Weinstein Ot 780.60 FEVER, UNSPECIFIED 02/07/2018 MARY VALDES MD Ot M12.9 ARTHROPATHY, UNSPECIFIED 02/07/2018 MARY VALDES MD Ot M48.06 SPINAL STENOSIS, LUMBAR REGION 02/07/2018 KEISHA ARANDA, MARY Weinstein Ot 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, 02/07/2018 BELEN BOLES MD Ot M51. 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 RADICULO 02/07/2018 MARY VALDES MD Ot K57.30 DVRTCLOS OF LG INT W/O PERFORATION OR AB 02/07/2018 MARY VLADES MD Ot M54.12 RADICULOPATHY, CERVICAL REGION 02/07/2018 MARY VALDES MD Ot Z53.8 PROCEDURE AND TREATMENT NOT CARRIED OUT 02/07/2018 RYAN VAUGHAN DIRECTOR OF TEENAGE ACTIVITIES Ot I10 ESSENTIAL (PRIMARY) HYPERTENSION 02/07/2018 YRAN VAUGHAN DIRECTOR OF TEENAGE ACTIVITIES Ot R61 GENERALIZED HYPERHIDROSIS 02/07/2018 NELI MCBRIDE READING ASSISTANT Ot I 10 ESSENTIAL (PRIMARY) HYPERTENSION 02/07/2018 KEISHA ARANDA, MARY Weinstein Ot 805.4 FX LUMBAR VERTEBRA-CLOSE 02/07/2018 KEISHA ARANDA, MARY Weinstein Ot E000.8 OTHER EXTERNAL CAUSE STATUS 02/07/2018 KEISHA ARANDA, MARY Weinstein Ot E888.9 FALL NOS 02/07/2018 MELCHOR ALDANAP Ot 557.1 CHR VASC INSUFF INTEST 02/07/2018 MELCHOR ALDANA READING ASSISTANT Ot 562.10 DIVERTICULOSIS COLON (W/O MENT OF HEMORR 02/07/2018 MELCHOR ALDANA READING ASSISTANT Ot 787.3 FLATUL/ERUCTAT/GAS PAIN 02/07/2018 MELCHOR ALDANA READING ASSISTANT Ot 787.91 DIARRHEA 02/07/2018 MELCHOR ALDANAP Ot 789.00 ABDOMINAL PAIN, UNSPECIFIED SITE 02/07/2018 Ot 733.13 PAT HOLOGIC FRACTURE, VERTEBRAE 02/07/2018 IJEOMA CHIU MD Ot 733.1 3 PATHOLOGIC FRACTURE, VERTEBRAE 02/07/2018 IJEOMA CHIU MD Ot V72.6 3 PRE-PROCEDURAL LABORATORY EXAMINATION 02/07/2018 IJEOMA CHIU MD Ot V74.8 SCREEN-BACTERIAL DIS NEC 02/07/2018 IJEOMA CHIU MD Ot Z01.8 12 ENCOUNTER FOR PREPROCEDURAL LABORATORY E 02/07/2018 KEISHA ARANDA, MARY Weinstein Ot 562.10 DIVERTICULOSIS COLON (W/O MENT OF HEMORR 02/07/2018 MARY VALDES MD Ot 780.60 FEVER, UNSPECIFIED 02/07/2018 MARY VALDES MD Ot M12.9 ARTHROPATHY, UNSPECIFIED 02/07/2018 MARY VALDES MD Ot M48.06 SPINAL STENOSIS, LUMBAR REGION 02/07/2018 MARY VALDES MD Ot 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, 02/07/2018 BELEN BOLES MD Ot M51. 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 RADICULO 02/07/2018 MARY VALDES MD Ot K57.30 DVRTCLOS OF LG INT W/O PERFORATION OR AB 02/07/2018 MARY VALDES MD Ot M54.12 RADICULOPATHY, CERVICAL REGION 02/07/2018 MARY VALDES MD Ot Z53.8 PROCEDURE AND TREATMENT NOT CARRIED OUT 02/07/2018 RYAN VAUGHAN DIRECTOR OF TEENAGE ACTIVITIES Ot I10 ESSENTIAL (PRIMARY) HYPERTENSION 02/07/2018 RYAN VAUGHAN Mary Beth DIRECTOR OF TEENAGE ACTIVITIES Ot R61 GENERALIZED HYPERHIDROSIS 02/07/2018 JOHN MCBRIDEHER Js READING ASSISTANT Ot I 10 ESSENTIAL (PRIMARY) HYPERTENSION 02/08/2018 GINGER ARANDA FACC, ALI FACP CCDS Ot I10 ESSENTIAL (PRIMARY) HYPERTENSION 02/08/2018 GINGER ARANDA FACC, ALI FACP CCDS Ot R00.2 PALPITATIONS 02/08/2018 GINGER ARANDA FACC, ALI FACP CCDS Ot R06.02 SHORTNESS OF BREATH 02/09/2018 GINGER ARANDA FACC, ALI FACP CCDS Ot I10 ESSENTIAL (PRIMARY) HYPERTENSION 02/09/2018 GINGER ARANDA FACC, ALI FACP CCDS Ot R00.2 PALPITATIONS 02/09/2018 GINGER BARTHC, ALI FACP CCDS Ot R06.02 SHORTNESS OF BREATH 02/15/2018 FREDDIE, DONALD Weinstein DIRECTOR OF TEENAGE ACTIVITIES Ot E78 .5 HYPERLIPIDEMIA, UNSPECIFIED 02/15/2018 FREDDIE, DONALD L DIRECTOR OF TEENAGE ACTIVITIES Ot F41 .1 GENERALIZED ANXIETY DISORDER 02/15/2018 FREDDIE, DONALD L DIRECTOR OF TEENAGE ACTIVITIES Ot I10 ESSENTIAL (PRIMARY) HYPERTENSION 02/15/2018 FREDDIE, DONALD L DIRECTOR OF TEENAGE ACTIVITIES Ot M79 .1 MYALGIA 02/15/2018 FREDDIE, DONALD L DIRECTOR OF TEENAGE ACTIVITIES Ot R42 DIZZINESS AND GIDDINESS 02/15/2018 FREDDIE, DONALD L DIRECTOR OF TEENAGE ACTIVITIES Ot R53.83 OTHER FATIGUE 02/21/2018 GINGER ARANDA FACC, MIQUEL FACP CCDS Ot I10 ESSENTIAL (PRIMARY) HYPERTENSION 02/21/2018 GINGER BARTHC, ALI FACP CCDS Ot R00.2 PALPITATIONS 02/21/2018 GINGER ARANDA FACC, ALI FACP CCDS Ot R06.02 SHORTNESS OF BREATH 02/21/2018 GINGER BARTHC, ALI FACP CCDS Ot I10 ESSENTIAL (PRIMARY) HYPERTENSION 02/21/2018 GINGER BARTHC, ALI FACP CCDS Ot R00.2 PALPITATIONS 02/21/2018 GINGER BARTHC, ALI FACP CCDS Ot R06.02 SHORTNESS OF BREATH 02/21/2018 FREDDIE, DONALD Weinstein DIRECTOR OF TEENAGE ACTIVITIES Ot E78 .5 HYPERLIPIDEMIA, UNSPECIFIED 02/21/2018 DONALD FRAZIER DIRECTOR OF TEENAGE ACTIVITIES Ot F41 .1 GENERALIZED ANXIETY DISORDER 02/21/2018 DONALD FRAZIER DIRECTOR OF TEENAGE ACTIVITIES Ot I10 ESSENTIAL (PRIMARY) HYPERTENSION 02/21/2018 DONALD FRAZIER DIRECTOR OF TEENAGE ACTIVITIES Ot M79 .1 MYALGIA 02/21/2018 DONALD FRAZIER DIRECTOR OF TEENAGE ACTIVITIES Ot R42 DIZZINESS AND GIDDINESS 02/21/2018 DONALD FRAZIER DIRECTOR OF TEENAGE ACTIVITIES Ot R53.83 OTHER FATIGUE 02/28/2018 MARY VALDES MD Ot 805.4 FX LUMBAR VERTEBRA-CLOSE 02/28/2018 MARY VALDES MD Ot E000.8 OTHER EXTERNAL CAUSE STATUS 02/28/2018 MARY VALDES MD Ot E888.9 FALL NOS 02/28/2018 MELCHOR ALDANA READING ASSISTANT Ot 557.1 CHR VASC INSUFF INTEST 02/28/2018 MELCHOR ALDANA READING ASSISTANT Ot 562.10 DIVERTICULOSIS COLON (W/O MENT OF HEMORR 02/28/2018 MELCHOR ALDANA READING ASSISTANT Ot 787.3 FLATUL/ERUCTAT/GAS PAIN 02/28/2018 MELCHOR ALDANA READING ASSISTANT Ot 787.91 DIARRHEA 02/28/2018 MELCHOR ALDANA READING ASSISTANT Ot 789.00 ABDOMINAL PAIN, UNSPECIFIED SITE 02/28/2018 Ot 733.13 PAT HOLOGIC FRACTURE, VERTEBRAE 02/28/2018 IJEOMA CHIU MD Ot 733.1 3 PATHOLOGIC FRACTURE, VERTEBRAE 02/28/2018 IJEOMA CHIU MD Ot V72.6 3 PRE-PROCEDURAL LABORATORY EXAMINATION 02/28/2018 IJEOMA CHIU MD Ot V74.8 SCREEN-BACTERIAL DIS NEC 02/28/2018 IJEOMA CHIU MD Ot Z01.8 12 ENCOUNTER FOR PREPROCEDURAL LABORATORY E 02/28/2018 MARY VALDES MD Ot 562.10 DIVERTICULOSIS COLON (W/O MENT OF HEMORR 02/28/2018 MARY VALDES MD Ot 780.60 FEVER, UNSPECIFIED 02/28/2018 MARY VALDES MD Ot M12.9 ARTHROPATHY, UNSPECIFIED 02/28/2018 MARY VALDES MD Ot M48.06 SPINAL STENOSIS, LUMBAR REGION 02/28/2018 MARY VALDES MD Ot 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, 02/28/2018 ELVI ARANDA, BELEN Tuan Ot M51. 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 RADICULO 02/28/2018 KEISHA ARANDA, MARY Weinstein Ot K57.30 DVRTCLOS OF LG INT W/O PERFORATION OR AB 02/28/2018 KEISHA ARANDA, MARY Weinstein Ot M54.12 RADICULOPATHY, CERVICAL REGION 02/28/2018 KEISHA ARANDA, MARY Weinstein Ot Z53.8 PROCEDURE AND TREATMENT NOT CARRIED OUT 02/28/2018 RYAN VAUGHAN R DIRECTOR OF TEENAGE ACTIVITIES Ot I10 ESSENTIAL (PRIMARY) HYPERTENSION 02/28/2018 RYAN VAUGHAN R DIRECTOR OF TEENAGE ACTIVITIES Ot R61 GENERALIZED HYPERHIDROSIS 02/28/2018 NELI MCBRIDE READING ASSISTANT Ot I 10 ESSENTIAL (PRIMARY) HYPERTENSION 02/28/2018 GINGER ARANDA FACC, [...] SHORTNESS OF BREATH 02/28/2018 FREDDIE, DONALD L DIRECTOR OF TEENAGE ACTIVITIES Ot E78 .5 HYPERLIPIDEMIA, UNSPECIFIED 02/28/2018 FREDDIE, DONALD L DIRECTOR OF TEENAGE ACTIVITIES Ot F41 .1 GENERALIZED ANXIETY DISORDER 02/28/2018 FREDDIE, DONALD L DIRECTOR OF TEENAGE ACTIVITIES Ot I10 ESSENTIAL (PRIMARY) HYPERTENSION 02/28/2018 FREDDIE, DONALD L DIRECTOR OF TEENAGE ACTIVITIES Ot M79 .1 MYALGIA 02/28/2018 FREDDIE, DONALD L DIRECTOR OF TEENAGE ACTIVITIES Ot R42 DIZZINESS AND GIDDINESS 02/28/2018 FREDDIE, DONALD L DIRECTOR OF TEENAGE ACTIVITIES Ot R53.83 OTHER FATIGUE 03/05/2018 MARTA ARANDA, BRITTNY C Ot R53. 83 OTHER FATIGUE 03/05/2018 KEISHA ARANDA, MARY Weinstein Ot 805.4 FX LUMBAR VERTEBRA-CLOSE 03/05/2018 KEISHA ARANDA, MARY Weinstein Ot E000.8 OTHER EXTERNAL CAUSE STATUS 03/05/2018 KEISHA ARANDA, MARY Weinstein Ot E888.9 FALL NOS 03/05/2018 MELCHOR ALDANA READING ASSISTANT Ot 557.1 CHR VASC INSUFF INTEST 03/05/2018 MELCHOR ALDANA Tuan READING ASSISTANT Ot 562.10 DIVERTICULOSIS COLON (W/O MENT OF HEMORR 03/05/2018 HORTENCIA ALDANADOMINGO Dickerson READING ASSISTANT Ot 787.3 FLATUL/ERUCTAT/GAS PAIN 03/05/2018 ALDANAHORTENCIADOMINGO Dickerson READING ASSISTANT Ot 787.91 DIARRHEA 03/05/2018 MELCHOR ALDANA Tuan READING ASSISTANT Ot 789.00 ABDOMINAL PAIN, UNSPECIFIED SITE 03/05/2018 Ot 733.13 PAT HOLOGIC FRACTURE, VERTEBRAE 03/05/2018 IJEOMA CHIU MD Ot 733.1 3 PATHOLOGIC FRACTURE, VERTEBRAE 03/05/2018 IJEOMA CHIU MD Ot V72.6 3 PRE-PROCEDURAL LABORATORY EXAMINATION 03/05/2018 IJEOMA CHIU MD Ot V74.8 SCREEN-BACTERIAL DIS NEC 03/05/2018 IJEOMA CHIU MD Ot Z01.8 12 ENCOUNTER FOR PREPROCEDURAL LABORATORY E 03/05/2018 KEISHA ARANDA, MARY Weinstein Ot 562.10 DIVERTICULOSIS COLON (W/O MENT OF HEMORR 03/05/2018 KEISHA ARANDA, MARY Weinstein Ot 780.60 FEVER, UNSPECIFIED 03/05/2018 MARY VALDES MD Ot M12.9 ARTHROPATHY, UNSPECIFIED 03/05/2018 MARY VALDES MD Ot M48.06 SPINAL STENOSIS, LUMBAR REGION 03/05/2018 MARY VALDES MD Ot 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, 03/05/2018 BELEN BOLES MD Ot M51. 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 RADICULO 03/05/2018 MARY VALDES MD Ot K57.30 DVRTCLOS OF LG INT W/O PERFORATION OR AB 03/05/2018 MARY VALDES MD Ot M54.12 RADICULOPATHY, CERVICAL REGION 03/05/2018 MARY VALDES MD Ot Z53.8 PROCEDURE AND TREATMENT NOT CARRIED OUT 03/05/2018 RYAN VAUGHAN APRN Ot I10 ESSENTIAL (PRIMARY) HYPERTENSION 03/05/2018 RYAN VAUGHAN DIRECTOR OF TEENAGE ACTIVITIES Ot R61 GENERALIZED HYPERHIDROSIS 03/05/2018 RAENELI Js READING ASSISTANT Ot I 10 ESSENTIAL (PRIMARY) HYPERTENSION 03/05/2018 GINGER ARANDA FAC, ALI FACP CCDS Ot I10 ESSENTIAL (PRIMARY) HYPERTENSION 03/05/2018 GINGER ARANDA FAC, ALI FACP CCDS Ot R00.2 PALPITATIONS 03/05/2018 GINGER ARANDA FAC, ALI FACP CCDS Ot R06.02 SHORTNESS OF BREATH 03/05/2018 GINGER ARANDA FAC, ALI FACP CCDS Ot I10 ESSENTIAL (PRIMARY) HYPERTENSION 03/05/2018 GINGER ARANDA FAC, ALI FACP CCDS Ot R00.2 PALPITATIONS 03/05/2018 GINGER ARANDA FAC, ALI FACP CCDS Ot R06.02 SHORTNESS OF BREATH 03/05/2018 FREDDIE, DONALD L DIRECTOR OF TEENAGE ACTIVITIES Ot E78 .5 HYPERLIPIDEMIA, UNSPECIFIED 03/05/2018 FREDDIE, DONALD L DIRECTOR OF TEENAGE ACTIVITIES Ot F41 .1 GENERALIZED ANXIETY DISORDER 03/05/2018 FREDDIE, DONALD L DIRECTOR OF TEENAGE ACTIVITIES Ot I10 ESSENTIAL (PRIMARY) HYPERTENSION 03/05/2018 FREDDIE, DONALD L DIRECTOR OF TEENAGE ACTIVITIES Ot M79 .1 MYALGIA 03/05/2018 FREDDIE, DONALD L DIRECTOR OF TEENAGE ACTIVITIES Ot R42 DIZZINESS AND GIDDINESS 03/05/2018 FREDDIE, DONALD L DIRECTOR OF TEENAGE ACTIVITIES Ot R53.83 OTHER FATIGUE 03/05/2018 MARTA ARANDA, BRITTNY C Ot R53. 83 OTHER FATIGUE 03/06/2018 ARCELIA ARANDA, BHAKTI Chavis Ot E83.42 HYPOMAGNESEMIA 03/06/2018 ARCELIA ARANDA, BHAKTI Chavis Ot E87.1 HYPO-OSMOLALITY AND HYPONATREMIA 03/06/2018 BHAKTI PANIAGUA MD Ot F41.9 ANXIETY DISORDER, UNSPECIFIED 03/06/2018 BHAKTI PANIAGUA MD Ot I10 ESSENTIAL (PRIMARY) HYPERTENSION 03/06/2018 BHAKTI PANIAGUA MD Ot K21.9 GASTRO-ESOPHAGEAL REFLUX DISEASE WITHOUT 03/06/2018 BHAKTI PANIAGUA MD Ot R00.2 PALPITATIONS 03/06/2018 BHAKTI PANIAGUA MD Ot Z87.19 PERSONAL HISTORY OF OTHER DISEASES OF 03/06/2018 ARCELIA ARANDA, BHAKTI Chavis Ot Z87.891 PERSONAL HISTORY OF NICOTINE DEPENDENCE 03/06/2018 ARCELIA ARANDA, BHAKTI Chavis Ot Z88.8 ALLERGY STATUS TO [facility] DRUG/MEDS/BIOL SUB 03/06/2018 BHAKTI PANIAGUA MD Ot 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 OF OTHER ORGANS 03/06/2018 KEISHA ARANDA, MARY Weinstein Ot 805.4 FX LUMBAR VERTEBRA-CLOSE 03/06/2018 MARY VALDES MD Ot E000.8 OTHER EXTERNAL CAUSE STATUS 03/06/2018 MARY VALDES MD Ot E888.9 FALL NOS 03/06/2018 MELCHOR ALDANA READING ASSISTANT Ot 557.1 CHR VASC INSUFF INTEST 03/06/2018 MELCHOR ALDANA READING ASSISTANT Ot 562.10 DIVERTICULOSIS COLON (W/O MENT OF HEMORR 03/06/2018 MELCHOR ALDANA READING ASSISTANT Ot 787.3 FLATUL/ERUCTAT/GAS PAIN 03/06/2018 MELCHOR ALDANA READING ASSISTANT Ot 787.91 DIARRHEA 03/06/2018 MELCHOR ALDANA READING ASSISTANT Ot 789.00 ABDOMINAL PAIN, UNSPECIFIED SITE 03/06/2018 Ot 733.13 PAT HOLOGIC FRACTURE, VERTEBRAE 03/06/2018 IJEOMA CHIU MD Ot 733.1 3 PATHOLOGIC FRACTURE, VERTEBRAE 03/06/2018 IJEOMA CHIU MD Ot V72.6 3 PRE-PROCEDURAL LABORATORY EXAMINATION 03/06/2018 IJEOMA CHIU MD Ot V74.8 SCREEN-BACTERIAL DIS NEC 03/06/2018 IJEOMA CHIU MD Ot Z01.8 12 ENCOUNTER FOR PREPROCEDURAL LABORATORY E 03/06/2018 MARY VALDES MD Ot 562.10 DIVERTICULOSIS COLON (W/O MENT OF HEMORR 03/06/2018 MARY VALDES MD Ot 780.60 FEVER, UNSPECIFIED 03/06/2018 MARY VALDES MD Ot M12.9 ARTHROPATHY, UNSPECIFIED 03/06/2018 MARY VALDES MD Ot M48.06 SPINAL STENOSIS, LUMBAR REGION 03/06/2018 MARY VALDES MD Ot 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, 03/06/2018 ELVI ARANDA, BELEN Dickerson Ot M51. 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 RADICULO 03/06/2018 KEISHA ARANDA, MARY Weinstein Ot K57.30 DVRTCLOS OF LG INT W/O PERFORATION OR AB 03/06/2018 KEISHA ARANDA, MARY Weinstein Ot M54.12 RADICULOPATHY, CERVICAL REGION 03/06/2018 KEISHA ARANDA, MARY Weinstein Ot Z53.8 PROCEDURE AND TREATMENT NOT CARRIED OUT 03/06/2018 RYAN VAUGHAN DIRECTOR OF TEENAGE ACTIVITIES Ot I10 ESSENTIAL (PRIMARY) HYPERTENSION 03/06/2018 RYAN VAUGHAN R DIRECTOR OF TEENAGE ACTIVITIES Ot R61 GENERALIZED HYPERHIDROSIS 03/06/2018 NELI MCBRIDE READING ASSISTANT Ot I 10 ESSENTIAL (PRIMARY) HYPERTENSION 03/06/2018 GINGER ARANDA FAC, [...] CCDS Ot R06.02 SHORTNESS OF BREATH 03/06/2018 FREDDIELOUANNN L DIRECTOR OF TEENAGE ACTIVITIES Ot E78 .5 HYPERLIPIDEMIA, UNSPECIFIED 03/06/2018 FREDDIE, DONALD L DIRECTOR OF TEENAGE ACTIVITIES Ot F41 .1 GENERALIZED ANXIETY DISORDER 03/06/2018 FREDDIE, DONALD L DIRECTOR OF TEENAGE ACTIVITIES Ot I10 ESSENTIAL (PRIMARY) HYPERTENSION 03/06/2018 FREDDIE, DONALD L DIRECTOR OF TEENAGE ACTIVITIES Ot M79 .1 MYALGIA 03/06/2018 FREDDIE, DONALD L DIRECTOR OF TEENAGE ACTIVITIES Ot R42 DIZZINESS AND GIDDINESS 03/06/2018 FREDDIE, DONALD L DIRECTOR OF TEENAGE ACTIVITIES Ot R53.83 OTHER FATIGUE 03/06/2018 MARTA ARANDA, BRITTNY Tapia Ot R53. 83 OTHER FATIGUE 03/06/2018 MARTA ARANDA, BRITTNY Tapia Ot R53. 83 OTHER FATIGUE 03/06/2018 ARCELIA ARANDA, BHAKTI Chavis [...] STATUS TO OTH DRUG/MEDS/BIOL SUB 03/06/2018 BHAKTI PAINAGUA MD Ot 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 OF OTHER [...] ORGANS 03/14/2018 MARTA ARANDA, BRITTNY Tapia Ot R53. 83 OTHER FATIGUE 03/16/2018 GINGER ARANDA FAC, ALI FACP CCDS Ot I10 ESSENTIAL (PRIMARY) HYPERTENSION 03/16/2018 GINGER ARANDA FAC, ALI FACP CCDS Ot R00.2 PALPITATIONS 03/16/2018 GINGER ARANDA FAC, ALI FACP CCDS Ot R06.02 SHORTNESS OF BREATH 03/20/2018 DEJESUSKAREN YOUNGBLOOD DO Ot A21.1 OCULOGLANDULAR TULAREMIA 03/20/2018 DEJESUS DO KAREN Tuan Ot I10 ESSENTIAL (PRIMARY) HYPERTENSION 03/20/2018 DEJESUS KAREN EWING Ot R53.83 OTHER FATIGUE 03/20/2018 DEJESUSKAREN YOUNGBLOOD DO Ot Z12.5 ENCOUNTER FOR SCREENING FOR MALIGNANT NE 03/20/2018 DEJESUSKAREN YOUNGBLOOD DO Ot Z72.89 OTHER PROBLEMS RELATED TO LIFESTYLE 03/29/2018 DEJESUSKAREN YOUNGBLOOD DO Ot A21.1 OCULOGLANDULAR TULAREMIA 03/29/2018 DEJESUSKAREN BUTTS DO Ot I10 ESSENTIAL (PRIMARY) HYPERTENSION 03/29/2018 DEJESUSKAREN BUTTS DO Ot R53.83 OTHER FATIGUE 03/29/2018 DEJESUS DO, KAREN Dickerson Ot Z12.5 ENCOUNTER FOR SCREENING FOR MALIGNANT NE 03/29/2018 DEJESUSKAREN YOUNGBLOOD DO Ot Z72.89 OTHER PROBLEMS RELATED TO LIFESTYLE 04/10/2018 Ot 789.00 ABD OMINAL PAIN, UNSPECIFIED SITE 04/12/2018 NING RIOS MD [...] RIOS MD Ot Z88.8 ALLERGY STATUS TO OTH DRUG/MEDS/BIOL SUB 04/12/2018 NING RIOS MD Ot 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 OF OTHER ORGANS 05/01/2018 KAREN DEJESUS DO Ot G47.33 OBSTRUCTIVE SLEEP APNEA (ADULT) (PEDIATR 05/02/2018 KAREN DEJESUS DO Ot I10 ESSENTIAL (PRIMARY) HYPERTENSION 05/02/2018 KAREN DEJESUS DO Ot G47.33 OBSTRUCTIVE SLEEP APNEA (ADULT) (PEDIATR 05/09/2018 KAREN DEJESUS DO Ot I10 ESSENTIAL (PRIMARY) HYPERTENSION 05/14/2018 HARLAN HERNANDEZ DIRECTOR OF TEENAGE ACTIVITIES Ot A21 .9 TULAREMIA, UNSPECIFIED 05/14/2018 HARLAN HERNANDEZ DIRECTOR OF TEENAGE ACTIVITIES Ot E78 .5 HYPERLIPIDEMIA, UNSPECIFIED 05/14/2018 HARLAN HERNANDEZ DIRECTOR OF TEENAGE ACTIVITIES Ot F41 .9 ANXIETY DISORDER, UNSPECIFIED 05/14/2018 HARLAN HERNANDEZ DIRECTOR OF TEENAGE ACTIVITIES Ot I10 ESSENTIAL (PRIMARY) HYPERTENSION 05/14/2018 HARLAN HERNANDEZ DIRECTOR OF TEENAGE ACTIVITIES Ot I95 .1 ORTHOSTATIC HYPOTENSION 05/14/2018 HARLAN HERNANDEZ DIRECTOR OF TEENAGE ACTIVITIES Ot R11 .0 NAUSEA 05/14/2018 HARLAN HERNANDEZ DIRECTOR OF TEENAGE ACTIVITIES Ot R23 .2 FLUSHING 05/14/2018 HARLAN HERNANDEZ DIRECTOR OF TEENAGE ACTIVITIES Ot R26.81 UNSTEADINESS ON FEET 05/14/2018 HARLAN HERNANDEZ DIRECTOR OF TEENAGE ACTIVITIES Ot T50.905A ADVERSE EFFECT OF UNSP DRUG/MEDS/BIOL ARTIS 05/15/2018 Ot 789.00 ABD OMINAL PAIN, UNSPECIFIED SITE 05/15/2018 KEISHA ARANDA, MARY Weinstein Ot 401.9 HYPERTENSION NOS 05/15/2018 KEISHA ARANDA, MARY Weinstein Ot 805.4 FX LUMBAR VERTEBRA-CLOSE 05/15/2018 MARY VALDES MD Ot E000.8 OTHER EXTERNAL CAUSE STATUS 05/15/2018 MARY VALDES MD Ot E888.9 FALL NOS 05/15/2018 MELCHOR ALDANA READING ASSISTANT Ot 557.1 CHR VASC INSUFF INTEST 05/15/2018 MELCHOR ALDANA READING ASSISTANT Ot 562.10 DIVERTICULOSIS COLON (W/O MENT OF HEMORR 05/15/2018 MELCHOR ALDANA READING ASSISTANT Ot 787.3 FLATUL/ERUCTAT/GAS PAIN 05/15/2018 MELCHOR ALDANA Tuan READING ASSISTANT Ot 787.91 DIARRHEA 05/15/2018 MELCHOR ALDANA READING ASSISTANT Ot 789.00 ABDOMINAL PAIN, UNSPECIFIED SITE 05/15/2018 Ot 733.13 PAT HOLOGIC FRACTURE, VERTEBRAE 05/15/2018 IJEOMA CHIU MD Ot 733.1 3 PATHOLOGIC FRACTURE, VERTEBRAE 05/15/2018 IJEOMA CHIU MD Ot V72.6 3 PRE-PROCEDURAL LABORATORY EXAMINATION 05/15/2018 IJEOMA CHIU MD Ot V74.8 SCREEN-BACTERIAL DIS NEC 05/15/2018 IJEOMA CHIU MD Ot Z01.8 12 ENCOUNTER FOR PREPROCEDURAL LABORATORY E 05/15/2018 MARY VALDES MD Ot 562.10 DIVERTICULOSIS COLON (W/O MENT OF HEMORR 05/15/2018 KEISHA ARANDA, MARY Weinstein Ot 780.60 FEVER, UNSPECIFIED 05/15/2018 MARY VALDES MD Ot M12.9 ARTHROPATHY, UNSPECIFIED 05/15/2018 MARY VALDES MD Ot M48.06 SPINAL STENOSIS, LUMBAR REGION 05/15/2018 MARY VALDES MD Ot 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, 05/15/2018 MARY VALDES MD Ot K57.30 DVRTCLOS OF LG INT W/O PERFORATION OR AB 05/15/2018 MARY VALDES MD Ot M54.12 RADICULOPATHY, CERVICAL REGION 05/15/2018 MARY VALDES MD Ot Z53.8 PROCEDURE AND TREATMENT NOT CARRIED OUT 05/15/2018 RYAN VAUGHAN DIRECTOR OF TEENAGE ACTIVITIES Ot I10 ESSENTIAL (PRIMARY) HYPERTENSION 05/15/2018 RYAN VAUGHAN DIRECTOR OF TEENAGE ACTIVITIES Ot R61 GENERALIZED HYPERHIDROSIS 05/15/2018 NELI MCBRIDE READING ASSISTANT Ot I 10 ESSENTIAL (PRIMARY) HYPERTENSION 05/15/2018 GINGER ARANDA FACC, ALI FACP CCDS Ot I10 ESSENTIAL (PRIMARY) HYPERTENSION 05/15/2018 GINGER ARANDA FACC, ALI FACP CCDS Ot R00.2 PALPITATIONS 05/15/2018 GINGER ARANDA FACC, MIQUEL FACP CCDS Ot R06.02 SHORTNESS OF BREATH 05/15/2018 GINGER ARANDA FACC, MIQUEL FACP CCDS Ot I10 ESSENTIAL (PRIMARY) HYPERTENSION 05/15/2018 GINGER ARANDA FACC, MIQUEL FACP CCDS Ot R00.2 PALPITATIONS 05/15/2018 GINGER ARANDA FACC, MIQUEL FACP CCDS Ot R06.02 SHORTNESS OF BREATH 05/15/2018 MARTA ARANDA, BRITTNY Tapia Ot R53. 83 OTHER FATIGUE 05/15/2018 HERNANDEZ, HARLAN L DIRECTOR OF TEENAGE ACTIVITIES Ot A21 .9 TULAREMIA, UNSPECIFIED 05/15/2018 HERNANDEZ, HARLAN L DIRECTOR OF TEENAGE ACTIVITIES Ot E78 .5 HYPERLIPIDEMIA, UNSPECIFIED 05/15/2018 HERNANDEZ, HARLAN L DIRECTOR OF TEENAGE ACTIVITIES Ot F41 .9 ANXIETY DISORDER, UNSPECIFIED 05/15/2018 HERNANDEZ, HARLAN L DIRECTOR OF TEENAGE ACTIVITIES Ot I10 ESSENTIAL (PRIMARY) HYPERTENSION 05/15/2018 MARY HARLAN L DIRECTOR OF TEENAGE ACTIVITIES Ot I95 .1 ORTHOSTATIC HYPOTENSION 05/15/2018 MARY HARLAN L DIRECTOR OF TEENAGE ACTIVITIES Ot R11 .0 NAUSEA 05/15/2018 MARY HARLAN L DIRECTOR OF TEENAGE ACTIVITIES Ot R23 .2 FLUSHING 05/15/2018 MARY HARLAN L DIRECTOR OF TEENAGE ACTIVITIES Ot R26.81 UNSTEADINESS ON FEET 05/15/2018 MARY HARLAN L DIRECTOR OF TEENAGE ACTIVITIES Ot T50.905A ADVERSE EFFECT OF UNSP DRUG/MEDS/BIOL ARTIS 05/15/2018 KAREN DEJESUS DO Ot I10 ESSENTIAL (PRIMARY) HYPERTENSION 05/16/2018 GINGER ARANDA FACC, MIQUEL FACP CCDS Ot E78.5 HYPERLIPIDEMIA, UNSPECIFIED 05/16/2018 GINGER ARANDA FACC, MIQUEL FACP CCDS Ot I10 ESSENTIAL (PRIMARY) HYPERTENSION 05/16/2018 GINGER ARANDA FACC, MIQUEL FACP CCDS Ot I25.10 ATHSCL HEART DISEASE OF [place] CORONARY 05/16/2018 GINGER ARANDA FACC, MIQUEL FACP CCDS Ot R00.2 PALPITATIONS 05/16/2018 GINGER ARANDA FACC, MIQUEL FACP CCDS Ot R42 DIZZINESS AND GIDDINESS 05/16/2018 GINGER ARANDA FACC, MIQUEL FACP CCDS Ot R53.1 WEAKNESS 05/16/2018 GINGER ARANDA FACC, ALI FACP CCDS Ot Z79.82 RETURN CLERK (CURRENT) USE OF ASPIRIN 05/16/2018 GINGER ARANDA [facility] CCD[facility] Ot Z79.899 OTHER RETURN CLERK (CURRENT) DRUG THERAPY 05/16/2018 GINGER ARANDA [facility], [facility] CCDS Ot Z87.891 PERSONAL HISTORY OF NICOTINE DEPENDENCE 05/16/2018 GINGER ARANDA [facility], [facility] CCDS Ot Z95.5 PRESENCE OF CORONARY ANGIOPLASTY IMPLANT 05/16/2018 Ot 789.00 ABD OMINAL PAIN, UNSPECIFIED SITE 05/16/2018 NING RIOS MD Ot F41.9 ANXIETY DISORDER, UNSPECIFIED 05/16/2018 NIGN RIOS MD Ot I10 ESSENTIAL (PRIMARY) HYPERTENSION 05/16/2018 NING RIOS MD, Ot K21.9 GASTRO-ESOPHAGEAL REFLUX DISEASE WITHOUT 05/16/2018 NING RIOS MD Ot R10.84 GENERALIZED ABDOMINAL PAIN 05/16/2018 NING RIOS MD Ot R11.0 NAUSEA 05/16/2018 NING RIOS MD Ot R19.7 DIARRHEA, UNSPECIFIED 05/16/2018 NING RIOS MD Ot Z79.02 ASSISTED (CURRENT) USE OF ANTITHROMBOTI 05/16/2018 NING RIOS MD Ot Z79.82 ASSISTED (CURRENT) USE OF ASPIRIN 05/16/2018 NING RIOS MD Ot Z87.19 PERSONAL HISTORY OF OTHER DISEASES OF TH 05/16/2018 NING RIOS MD Ot Z87.891 PERSONAL HISTORY OF NICOTINE DEPENDENCE 05/16/2018 NING RIOS MD Ot Z88.2 ALLERGY STATUS TO SULFONAMIDES STATUS 05/16/2018 NING RIOS MD Ot Z88.8 ALLERGY STATUS TO OTH DRUG/MEDS/BIOL SUB 05/16/2018 NING RIOS MD Ot Z90.49 ACQUIRED ABSENCE OF OTHER SPECIFIED PART 05/16/2018 NING RIOS MD Ot Z95.9 PRESENCE OF CARDIAC AND VASCULAR IMPLANT 05/16/2018 NING RIOS MD Ot Z98.890 OTHER SPECIFIED POSTPROCEDURAL STATES 05/17/2018 KAREN DEJESUS DO Ot I10 ESSENTIAL (PRIMARY) HYPERTENSION 05/18/2018 NING RIOS MD Ot F41.9 ANXIETY DISORDER, UNSPECIFIED 05/18/2018 NING RIOS MD Ot I10 ESSENTIAL (PRIMARY) HYPERTENSION 05/18/2018 NING RIOS MD, Ot K21.9 GASTRO-ESOPHAGEAL REFLUX DISEASE WITHOUT 05/18/2018 NING RIOS MD Ot R10.84 GENERALIZED ABDOMINAL PAIN 05/18/2018 NING RIOS MD, Ot R11.0 NAUSEA 05/18/2018 NING RIOS MD, Ot R19.7 DIARRHEA, UNSPECIFIED 05/18/2018 NING RIOS MD, Ot Z79.02 ASSISTED (CURRENT) USE OF ANTITHROMBOTI 05/18/2018 NING RIOS MD, Ot Z79.82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 Pau Amado 08/14/2019 W F41.1 Gene ralized anxiety disorder Pau [place] 08/14/2019 W I10 Essent ial (primary) hypertension Pau Amado 08/14/2019 W M65.341 Tr igger ring finger of right hand Pau Amado 08/30/2019 W T81.89XA D elayed surgical wound healing Susan Hart 08/30/2019 W T81.89XA D elayed surgical wound healing Susan Hart 09/11/2019 W R21 Rash Amado Mai Procedures There is no data. Results Test Result Range Complete blood count (CBC) with automate d white blood cell (WBC) differential - 10/18/17 19:40 Blood leukocytes automated count (number/volume) 10.7 10*3/uL 4.3-11.0 Blood erythrocytes automated count (number/volume) 4.51 10*6/uL 4.35-5.85 Venous blood hemoglobin measurement (mass/volume) 14.8 g/dL 13.3-17.7 Blood hematocrit (volume fraction) 40 % 40-54 Automated erythrocyte mean corpuscular volume 88 [ foz_us] 80-99 Automated erythrocyte mean corpuscular h emoglobin (mass per erythrocyte) 33 pg 25-34 Automated erythrocyte mean corpuscular h emoglobin concentration measurement (mass/volume) 37 g/dL 32-36 Automated erythrocyte distribution width ratio 12. 6 % 10.0- 14.5 Automated blood platelet count (count/volume) 262 10*3/uL [...] 10*3 1.0-4.0 Blood monocytes automated count (number/volume) 0. 9 10*3 0.0-1.0 Automated eosinophil count 0.1 10*3/uL 0 .0-0.3 Automated blood basophil count (count/volume) 0.0 10*3/uL 0.0-0.1 Comprehensive metabolic panel - 10/18/17 19:40 Serum or plasma sodium measurement (moles/volume) 127 mmol/L 135-145 Serum or plasma potassium measurement (moles/volume) 3.9 mmol/L 3.6-5.0 Serum or plasma chloride measurement (moles/volume) 95 mmol/L 98-107 Carbon dioxide 20 mmol/L 21-32 Serum or plasma anion gap determination (moles/volume) 12 mmol/L 5-14 Serum or plasma urea nitrogen measurement (mass/volume ) 13 mg/dL 7-18 Serum or plasma creatinine measurement (mass/volume) 0.79 mg/dL 0.60-1.30 Serum or plasma urea nitrogen/creatinine mass ratio 16 NRG Serum or plasma creatinine measurement w ith calculation of estimated glomerular filtration rate > NRG Serum or plasma glucose measurement (mass/volume) 102 mg/dL 70-105 Serum or plasma calcium measurement (mass/volume) 9.2 mg/dL 8.5-10.1 Serum or plasma total bilirubin measurement (mass/volu me) 1.7 mg/dL 0.1-1.0 Serum or plasma alkaline phosphatase jesus surement (enzymatic activity/volume) 69 U/L 40-136 Serum or plasma aspartate aminotransfera se measurement (enzymatic activity/volume) 28 U/L 5-34 Serum or plasma alanine aminotransferase measurement (enzymatic activity/volume) 21 U/L 0-55 Serum or plasma protein measurement (mass/volume) 7.1 g/dL 6.4-8.2 Serum or plasma albumin measurement (mass/volume) 4.5 g/dL 3.2-4.5 Serum or plasma thyrotropin measurement by detection limit <=0.05 miu/l (units/volume) - 10/18/17 19:40 Serum or plasma thyrotropin measurement by detection limit <=0.05 miu/l (units/volume) 2.12 u[iU]/mL 0.35-4.94 Complete blood count (CBC) with automate d white blood cell (WBC) differential - 12/21/17 17:44 Blood leukocytes automated count (number/volume) 6.8 10*3/uL 4.3-11.0 Blood erythrocytes automated count (number/volume) 4.42 10*6/uL 4.35-5.85 Venous blood hemoglobin measurement (mass/volume) 14.7 g/dL 13.3-17.7 Blood hematocrit (volume fraction) 40 % 40-54 Automated erythrocyte mean corpuscular volume 91 [ foz_us] 80-99 Automated erythrocyte mean corpuscular h emoglobin (mass per erythrocyte) 33 pg 25-34 Automated erythrocyte mean corpuscular h emoglobin concentration measurement (mass/volume) 37 g/dL 32-36 Automated erythrocyte distribution width ratio 13. 3 % 10.0- 14.5 Automated blood platelet count (count/volume) 237 10*3/uL [...] 10*3 1.0-4.0 Blood monocytes automated count (number/volume) 0. 6 10*3 0.0-1.0 Automated eosinophil count 0.1 10*3/uL 0 .0-0.3 Automated blood basophil count (count/volume) 0.0 10*3/uL 0.0-0.1 Comprehensive metabolic panel - 12/21/17 17:44 Serum or plasma sodium measurement (moles/volume) 140 mmol/L 135-145 Serum or plasma potassium measurement (moles/volume) 4.1 mmol/L 3.6-5.0 Serum or plasma chloride measurement (moles/volume) 107 mmol/L 98-107 Carbon dioxide 24 mmol/L 21-32 Serum or plasma anion gap determination (moles/volume) 9 mmol/L 5-14 Serum or plasma urea nitrogen measurement (mass/volume ) 13 mg/dL 7-18 Serum or plasma creatinine measurement (mass/volume) 0.85 mg/dL 0.60-1.30 Serum or plasma urea nitrogen/creatinine mass ratio 15 NRG Serum or plasma creatinine measurement w ith calculation of estimated glomerular filtration rate > NRG Serum or plasma glucose measurement (mass/volume) 104 mg/dL 70-105 Serum or plasma calcium measurement (mass/volume) 9.9 mg/dL 8.5-10.1 Serum or plasma total bilirubin measurement (mass/volu me) 1.2 mg/dL 0.1-1.0 Serum or plasma alkaline phosphatase jesus surement (enzymatic activity/volume) 59 U/L 40-136 Serum or plasma aspartate aminotransfera se measurement (enzymatic activity/volume) 22 U/L 5-34 Serum or plasma alanine aminotransferase measurement (enzymatic activity/volume) 16 U/L 0-55 Serum or plasma protein measurement (mass/volume) 7.0 g/dL 6.4-8.2 Serum or plasma albumin measurement (mass/volume) 4.3 g/dL 3.2-4.5 Serum or plasma troponin i.cardiac measu rement (mass/volume) - 12/21/17 17:44 Serum or plasma troponin i.cardiac measurement (mass/v olume) < ng/mL <0.30 Complete blood count (CBC) with automate d white blood cell (WBC) differential - 01/11/18 07:58 Blood leukocytes automated count (number/volume) 6.5 10*3/uL 4.3-11.0 Blood erythrocytes automated count (number/volume) 4.49 10*6/uL 4.35-5.85 Venous blood hemoglobin measurement (mass/volume) 14.1 g/dL 13.3-17.7 Blood hematocrit (volume fraction) 40 % 40-54 Automated erythrocyte mean corpuscular volume 89 [ foz_us] 80-99 Automated erythrocyte mean corpuscular h emoglobin (mass per erythrocyte) 31 pg 25-34 Automated erythrocyte mean corpuscular h emoglobin concentration measurement (mass/volume) 35 g/dL 32-36 Automated erythrocyte distribution width ratio 12. 4 % 10.0- 14.5 Automated blood platelet count (count/volume) 274 10*3/uL [...] 10*3 1.0-4.0 Blood monocytes automated count (number/volume) 0. 6 10*3 0.0-1.0 Automated eosinophil count 0.1 10*3/uL 0 .0-0.3 Automated blood basophil count (count/volume) 0.0 10*3/uL 0.0-0.1 Erythrocyte sedimentation rate by estephanie gren method - 01/11/18 07:58 Erythrocyte sedimentation rate by westergren method 13 mm 0- 30 Comprehensive metabolic panel - 01/11/18 07:58 Serum or plasma sodium measurement (moles/volume) 142 mmol/L 135-145 Serum or plasma potassium measurement (moles/volume) 4.1 mmol/L 3.6-5.0 Serum or plasma chloride measurement (moles/volume) 107 mmol/L 98-107 Carbon dioxide 26 mmol/L 21-32 Serum or plasma anion gap determination (moles/volume) 9 mmol/L 5-14 Serum or plasma urea nitrogen measurement (mass/volume ) 11 mg/dL 7-18 Serum or plasma creatinine measurement (mass/volume) 0.83 mg/dL 0.60-1.30 Serum or plasma urea nitrogen/creatinine mass ratio 13 NRG Serum or plasma creatinine measurement w ith calculation of estimated glomerular filtration rate > NRG Serum or plasma glucose measurement (mass/volume) 107 mg/dL 70-105 Serum or plasma calcium measurement (mass/volume) 9.9 mg/dL 8.5-10.1 Serum or plasma total bilirubin measurement (mass/volu me) 2.0 mg/dL 0.1-1.0 Serum or plasma alkaline phosphatase jesus surement (enzymatic activity/volume) 61 U/L 40-136 Serum or plasma aspartate aminotransfera se measurement (enzymatic activity/volume) 13 U/L 5-34 Serum or plasma alanine aminotransferase measurement (enzymatic activity/volume) 12 U/L 0-55 Serum or plasma protein measurement (mass/volume) 6.9 g/dL 6.4-8.2 Serum or plasma albumin measurement (mass/volume) 4.4 g/dL 3.2-4.5 Magnesium - 01/11/18 07:58 Magnesium 1.9 mg/dL 1.8-2.4 THYROID STIMULATING HORMONE - 01/11/18 0 7:58 THYROID STIMULATING HORMONE 2.12 u[iU]/mL 0.35-4.94 Complete blood count (CBC) with automate d white blood cell (WBC) differential - 01/16/18 22:15 Blood leukocytes automated count (number/volume) 7.4 10*3/uL 4.3-11.0 Blood erythrocytes automated count (number/volume) 4.60 10*6/uL 4.35-5.85 Venous blood hemoglobin measurement (mass/volume) 14.5 g/dL 13.3-17.7 Blood hematocrit (volume fraction) 40 % 40-54 Automated erythrocyte mean corpuscular volume 88 [ foz_us] 80-99 Automated erythrocyte mean corpuscular h emoglobin (mass per erythrocyte) 32 pg 25-34 Automated erythrocyte mean corpuscular h emoglobin concentration measurement (mass/volume) 36 g/dL 32-36 Automated erythrocyte distribution width ratio 12. 3 % 10.0- 14.5 Automated blood platelet count (count/volume) 251 10*3/uL [...] 10*3 1.0-4.0 Blood monocytes automated count (number/volume) 0. 6 10*3 0.0-1.0 Automated eosinophil count 0.2 10*3/uL 0 .0-0.3 Automated blood basophil count (count/volume) 0.0 10*3/uL 0.0-0.1 PT panel in platelet poor plasma by coag ulation assay - 01/16/18 22:15 Prothrombin time (PT) in platelet poor plasma by coagu lation assay 12.1 s 12.2-14.7 INR in platelet poor plasma or blood by coagulation as say 0.9 0.8-1.4 Activated partial thromboplastin time (a PTT) in platelet poor plasma bycoagulation assay - 01/16/18 22:15 Activated partial thromboplastin time (a PTT) in platelet poor plasma bycoagulation assay 37 s 24-35 Comprehensive metabolic panel - 01/16/18 22:15 Serum or plasma sodium measurement (moles/volume) 140 mmol/L 135-145 Serum or plasma potassium measurement (moles/volume) 3.8 mmol/L 3.6-5.0 Serum or plasma chloride measurement (moles/volume) 105 mmol/L 98-107 Carbon dioxide 24 mmol/L 21-32 Serum or plasma anion gap determination (moles/volume) 11 mmol/L 5-14 Serum or plasma urea nitrogen measurement (mass/volume ) 9 mg/dL 7-18 Serum or plasma creatinine measurement (mass/volume) 0.80 mg/dL 0.60-1.30 Serum or plasma urea nitrogen/creatinine mass ratio 11 NRG Serum or plasma creatinine measurement w ith calculation of estimated glomerular filtration rate > NRG Serum or plasma glucose measurement (mass/volume) 112 mg/dL 70-105 Serum or plasma calcium measurement (mass/volume) 10.1 mg/dL 8.5-10.1 Serum or plasma total bilirubin measurement (mass/volu me) 1.0 mg/dL 0.1-1.0 Serum or plasma alkaline phosphatase jesus surement (enzymatic activity/volume) 78 U/L 40-136 Serum or plasma aspartate aminotransfera se measurement (enzymatic activity/volume) 14 U/L 5-34 Serum or plasma alanine aminotransferase measurement (enzymatic activity/volume) 14 U/L 0-55 Serum or plasma protein measurement (mass/volume) 7.0 g/dL 6.4-8.2 Serum or plasma albumin measurement (mass/volume) 4.4 g/dL 3.2-4.5 CALCIUM CORRECTED 9.8 mg/dL 8.5-10.1 Magnesium - 01/16/18 22:15 Magnesium 1.6 mg/dL 1.8-2.4 Serum or plasma troponin i.cardiac measu rement (mass/volume) - 01/16/18 22:15 Serum or plasma troponin i.cardiac measurement (mass/v olume) < ng/mL <0.30 Myoglobin, serum - 01/16/18 22:15 Myoglobin, serum 22.6 ng/mL 10.0-92.0 Serum or plasma lithium measurement (mol es/volume) - 01/16/18 22:15 BNP level 121.1 pg/mL <100.0 Complete blood count (CBC) with automate d white blood cell (WBC) differential - 02/09/18 16:59 Blood leukocytes automated count (number/volume) 13.6 10*3/uL 4.3-11.0 Blood erythrocytes automated count (number/volume) 4.58 10*6/uL 4.35-5.85 Venous blood hemoglobin measurement (mass/volume) 14.4 g/dL 13.3-17.7 Blood hematocrit (volume fraction) 39 % 40-54 Automated erythrocyte mean corpuscular volume 84 [ foz_us] 80-99 Automated erythrocyte mean corpuscular h emoglobin (mass per erythrocyte) 31 pg 25-34 Automated erythrocyte mean corpuscular h emoglobin concentration measurement (mass/volume) 37 g/dL 32-36 Automated erythrocyte distribution width ratio 12. 2 % 10.0- 14.5 Automated blood platelet count (count/volume) 281 10*3/uL [...] 10*3 1.0-4.0 Blood monocytes automated count (number/volume) 1. 0 10*3 0.0-1.0 Automated eosinophil count 0.2 10*3/uL 0 .0-0.3 Automated blood basophil count (count/volume) 0.0 10*3/uL 0.0-0.1 Comprehensive metabolic panel - 02/09/18 16:59 Serum or plasma sodium measurement (moles/volume) 131 mmol/L 135-145 Serum or plasma potassium measurement (moles/volume) 3.8 mmol/L 3.6-5.0 Serum or plasma chloride measurement (moles/volume) 98 mmol/L 98-107 Carbon dioxide 23 mmol/L 21-32 Serum or plasma anion gap determination (moles/volume) 10 mmol/L 5-14 Serum or plasma urea nitrogen measurement (mass/volume ) 13 mg/dL 7-18 Serum or plasma creatinine measurement (mass/volume) 1.12 mg/dL 0.60-1.30 Serum or plasma urea nitrogen/creatinine mass ratio 12 NRG Serum or plasma creatinine measurement w ith calculation of estimated glomerular filtration rate > NRG Serum or plasma glucose measurement (mass/volume) 126 mg/dL 70-105 Serum or plasma calcium measurement (mass/volume) 9.8 mg/dL 8.5-10.1 Serum or plasma total bilirubin measurement (mass/volu me) 1.1 mg/dL 0.1-1.0 Serum or plasma alkaline phosphatase jesus surement (enzymatic activity/volume) 69 U/L 40-136 Serum or plasma aspartate aminotransfera se measurement (enzymatic activity/volume) 13 U/L 5-34 Serum or plasma alanine aminotransferase measurement (enzymatic activity/volume) 14 U/L 0-55 Serum or plasma protein measurement (mass/volume) 7.1 g/dL 6.4-8.2 Serum or plasma albumin measurement (mass/volume) 4.5 g/dL 3.2-4.5 CALCIUM CORRECTED 9.4 mg/dL 8.5-10.1 Tick identification panel - 02/09/18 16: 59 Serum Ehrlichia chaffeensis IgG antibody detection <1:16 <1:16 Serum Ehrlichia chaffeensis IgM antibody detection <1:10 <1:10 Serum Rickettsia rickettsii IgG antibody assay (units/ volume) < <1:16 [place] spotted fever panel < <1:10 Francisella tularensis antibody assay 1:80 NRG LYME AB G M 0.10 % 0.00-0.89 Interpretation of Lyme disease antibody assay Nega tive Negative Automated blood complete blood count (he mogram) panel - 03/01/18 07:50 Blood leukocytes automated count (number/volume) 5.7 10*3/uL 4.3-11.0 Blood erythrocytes automated count (number/volume) 4.31 10*6/uL 4.35-5.85 Venous blood hemoglobin measurement (mass/volume) 13.7 g/dL 13.3-17.7 Blood hematocrit (volume fraction) 37 % 40-54 Automated erythrocyte mean corpuscular volume 85 [ foz_us] 80-99 Automated erythrocyte mean corpuscular h emoglobin (mass per erythrocyte) 32 pg 25-34 Automated erythrocyte mean corpuscular h emoglobin concentration measurement (mass/volume) 37 g/dL 32-36 Automated erythrocyte distribution width ratio 12. 6 % 10.0- 14.5 Automated blood platelet count (count/volume) 250 10*3/uL 130-400 Automated blood platelet mean volume measurement 9.7 [foz_us] 7.4-10.4 Serum or plasma testosterone measurement (mass/volume) - 03/01/18 07:50 Testosterone [mass or moles/volume] in serum or plasma 387.38 % 220.91-715.81 Complete blood count (CBC) with automate d white blood cell (WBC) differential - 03/05/18 23:18 Blood leukocytes automated count (number/volume) 6.9 10*3/uL 4.3-11.0 Blood erythrocytes automated count (number/volume) 4.22 10*6/uL 4.35-5.85 Venous blood hemoglobin measurement (mass/volume) 13.5 g/dL 13.3-17.7 Blood hematocrit (volume fraction) 35 % 40-54 Automated erythrocyte mean corpuscular volume 82 [ foz_us] 80-99 Automated erythrocyte mean corpuscular h emoglobin (mass per erythrocyte) 32 pg 25-34 Automated erythrocyte mean corpuscular h emoglobin concentration measurement (mass/volume) 39 g/dL 32-36 Automated erythrocyte distribution width ratio 12. 5 % 10.0- 14.5 Automated blood platelet count (count/volume) 255 10*3/uL [...] 10*3 1.0-4.0 Blood monocytes automated count (number/volume) 0. 7 10*3 0.0-1.0 Automated eosinophil count 0.2 10*3/uL 0 .0-0.3 Automated blood basophil count (count/volume) 0.0 10*3/uL 0.0-0.1 Comprehensive metabolic panel - 03/05/18 23:18 Serum or plasma sodium measurement (moles/volume) 125 mmol/L 135-145 Serum or plasma potassium measurement (moles/volume) 3.6 mmol/L 3.6-5.0 Serum or plasma chloride measurement (moles/volume) 91 mmol/L 98-107 Carbon dioxide 24 mmol/L 21-32 Serum or plasma anion gap determination (moles/volume) 10 mmol/L 5-14 Serum or plasma urea nitrogen measurement (mass/volume ) 10 mg/dL 7-18 Serum or plasma creatinine measurement (mass/volume) 0.90 mg/dL 0.60-1.30 Serum or plasma urea nitrogen/creatinine mass ratio 11 NRG Serum or plasma creatinine measurement w ith calculation of estimated glomerular filtration rate > NRG Serum or plasma glucose measurement (mass/volume) 157 mg/dL 70-105 Serum or plasma calcium measurement (mass/volume) 9.6 mg/dL 8.5-10.1 Serum or plasma total bilirubin measurement (mass/volu me) 1.0 mg/dL 0.1-1.0 Serum or plasma alkaline phosphatase jesus surement (enzymatic activity/volume) 60 U/L 40-136 Serum or plasma aspartate aminotransfera se measurement (enzymatic activity/volume) 15 U/L 5-34 Serum or plasma alanine aminotransferase measurement (enzymatic activity/volume) 12 U/L 0-55 Serum or plasma protein measurement (mass/volume) 6.6 g/dL 6.4-8.2 Serum or plasma albumin measurement (mass/volume) 4.3 g/dL 3.2-4.5 CALCIUM CORRECTED 9.4 mg/dL 8.5-10.1 Magnesium - 03/05/18 23:18 Magnesium 1.4 mg/dL 1.8-2.4 Serum or plasma troponin i.cardiac measu rement (mass/volume) - 03/05/18 23:18 Serum or plasma troponin i.cardiac measurement (mass/v olume) < ng/mL <0.30 Complete blood count (CBC) with automate d white blood cell (WBC) differential - 03/06/18 20:30 Blood leukocytes automated count (number/volume) 8.8 10*3/uL 4.3-11.0 Blood erythrocytes automated count (number/volume) 4.40 10*6/uL 4.35-5.85 Venous blood hemoglobin measurement (mass/volume) 13.8 g/dL 13.3-17.7 Blood hematocrit (volume fraction) 36 % 40-54 Automated erythrocyte mean corpuscular volume 83 [ foz_us] 80-99 Automated erythrocyte mean corpuscular h emoglobin (mass per erythrocyte) 31 pg 25-34 Automated erythrocyte mean corpuscular h emoglobin concentration measurement (mass/volume) 38 g/dL 32-36 Automated erythrocyte distribution width ratio 12. 9 % 10.0- 14.5 Automated blood platelet count (count/volume) 296 10*3/uL [...] 10*3 1.0-4.0 Blood monocytes automated count (number/volume) 0. 8 10*3 0.0-1.0 Automated eosinophil count 0.2 10*3/uL 0 .0-0.3 Automated blood basophil count (count/volume) 0.0 10*3/uL 0.0-0.1 Whole blood basic metabolic panel - 02/11 10/27 20:30 Serum or plasma sodium measurement (moles/volume) 128 mmol/L 135-145 Serum or plasma potassium measurement (moles/volume) 4.0 mmol/L 3.6-5.0 Serum or plasma chloride measurement (moles/volume) 95 mmol/L 98-107 Carbon dioxide 23 mmol/L 21-32 Serum or plasma anion gap determination (moles/volume) 10 mmol/L 5-14 Serum or plasma urea nitrogen measurement (mass/volume ) 8 mg/dL 7-18 Serum or plasma creatinine measurement (mass/volume) 0.78 mg/dL 0.60-1.30 Serum or plasma urea nitrogen/creatinine mass ratio 10 NRG Serum or plasma creatinine measurement w ith calculation of estimated glomerular filtration rate > NRG Serum or plasma glucose measurement (mass/volume) 110 mg/dL 70-105 Serum or plasma calcium measurement (mass/volume) 9.9 mg/dL 8.5-10.1 Magnesium - 03/06/18 20:30 Magnesium 1.7 mg/dL 1.8-2.4 Serum or plasma troponin i.cardiac measu rement (mass/volume) - 03/06/18 20:30 Serum or plasma troponin i.cardiac measurement (mass/v olume) < ng/mL <0.30 Complete urinalysis with reflex to cultu re - 03/06/18 21:42 Urine color determination YELLOW NRG Urine clarity determination CLEAR NR G Urine pH measurement by test strip 7 5-9 Specific gravity of urine by test strip 1.005 1.016-1.022 Urine protein assay by test strip, semi-quantitative NEGATIVE NEGATIVE Urine glucose detection by automated test strip NE GATIVE NEGATIVE Erythrocytes detection in urine sediment by light micr oscopy NEGATIVE NEGATIVE Urine ketones detection by automated test strip NE GATIVE NEGATIVE Urine nitrite detection by test strip NEGATIVE NEGATIVE Urine total bilirubin detection by test strip NEGA TIVE NEGATIVE Urine urobilinogen measurement by automated test strip (mass/volume) NORMAL NORMAL Urine leukocyte esterase detection by dipstick NEG ATIVE NEGATIVE Automated urine sediment erythrocyte cou nt by microscopy (number/high power field) NONE NRG Automated urine sediment leukocyte count by microscopy (number/high power field) RARE NRG Bacteria detection in urine sediment by light microsco py NEGATIVE NRG Crystals detection in urine sediment by light microsco py NONE NRG Casts detection in urine sediment by light microscopy NONE NRG Mucus detection in urine sediment by light microscopy NEGATIVE NRG Complete urinalysis with reflex to culture NO NRG Other elements identification in urine sediment by lig ht microscopy FEW SPERM NRG Complete blood count (CBC) with automate d white blood cell (WBC) differential - 03/16/18 11:00 Blood leukocytes automated count (number/volume) 7.9 10*3/uL 4.3-11.0 Blood erythrocytes automated count (number/volume) 4.53 10*6/uL 4.35-5.85 Venous blood hemoglobin measurement (mass/volume) 14.1 g/dL 13.3-17.7 Blood hematocrit (volume fraction) 39 % 40-54 Automated erythrocyte mean corpuscular volume 85 [ foz_us] 80-99 Automated erythrocyte mean corpuscular h emoglobin (mass per erythrocyte) 31 pg 25-34 Automated erythrocyte mean corpuscular h emoglobin concentration measurement (mass/volume) 37 g/dL 32-36 Automated erythrocyte distribution width ratio 13. 5 % 10.0- 14.5 Automated blood platelet count (count/volume) 289 10*3/uL [...] 10*3 1.0-4.0 Blood monocytes automated count (number/volume) 0. 8 10*3 0.0-1.0 Automated eosinophil count 0.5 10*3/uL 0 .0-0.3 Automated blood basophil count (count/volume) 0.0 10*3/uL 0.0-0.1 Comprehensive metabolic panel - 03/16/18 11:00 Serum or plasma sodium measurement (moles/volume) 133 mmol/L 135-145 Serum or plasma potassium measurement (moles/volume) 4.0 mmol/L 3.6-5.0 Serum or plasma chloride measurement (moles/volume) 99 mmol/L 98-107 Carbon dioxide 25 mmol/L 21-32 Serum or plasma anion gap determination (moles/volume) 9 mmol/L 5-14 Serum or plasma urea nitrogen measurement (mass/volume ) 11 mg/dL 7-18 Serum or plasma creatinine measurement (mass/volume) 0.79 mg/dL 0.60-1.30 Serum or plasma urea nitrogen/creatinine mass ratio 14 NRG Serum or plasma creatinine measurement w ith calculation of estimated glomerular filtration rate > NRG Serum or plasma glucose measurement (mass/volume) 100 mg/dL 70-105 Serum or plasma calcium measurement (mass/volume) 10.2 mg/dL 8.5-10.1 Serum or plasma total bilirubin measurement (mass/volu me) 1.4 mg/dL 0.1-1.0 Serum or plasma alkaline phosphatase jesus surement (enzymatic activity/volume) 57 U/L 40-136 Serum or plasma aspartate aminotransfera se measurement (enzymatic activity/volume) 13 U/L 5-34 Serum or plasma alanine aminotransferase measurement (enzymatic activity/volume) 23 U/L 0-55 Serum or plasma protein measurement (mass/volume) 7.0 g/dL 6.4-8.2 Serum or plasma albumin measurement (mass/volume) 4.4 g/dL 3.2-4.5 CALCIUM CORRECTED 9.9 mg/dL 8.5-10.1 Magnesium - 03/16/18 11:00 Magnesium 1.6 mg/dL 1.8-2.4 THYROID STIMULATING HORMONE - 03/16/18 1 1:00 THYROID STIMULATING HORMONE 1.15 u[iU]/mL 0.35-4.94 Serum or plasma thyroxine (T4) free christine urement (mass/volume) - 03/16/18 11:00 Serum or plasma thyroxine (T4) free measurement (mass/ volume) 1.21 ng/dL 0.70-1.48 Serum hepatitis C virus antibody assay ( units/volume) - 03/16/18 11:00 Serum hepatitis C virus antibody detection Non-[place] ctive Non-Reactive Serum or plasma testosterone measurement (mass/volume) - 03/16/18 11:00 Testosterone [mass or moles/volume] in serum or plasma 411.99 % 220.91-715.81 Francisella tularensis antibody assay - 03/16/18 11:00 Francisella tularensis antibody assay 1:80 NRG Semen free prostate specific antigen (PS A) measurement (units/volume) - 03/16/18 11:00 Prostate specific ag [mass/volume] in serum or plasma 3.81 % 0.00-4.00 Bacterial blood culture - 04/10/18 16:03 Bacterial blood culture NG NR Complete blood count (CBC) with automate d white blood cell (WBC) differential - 04/10/18 17:42 Blood leukocytes automated count (number/volume) 9.1 10*3/uL 4.3-11.0 Blood erythrocytes automated count (number/volume) 3.73 10*6/uL 4.35-5.85 Venous blood hemoglobin measurement (mass/volume) 11.7 g/dL 13.3-17.7 Blood hematocrit (volume fraction) 33 % 40-54 Automated erythrocyte mean corpuscular volume 89 [ foz_us] 80-99 Automated erythrocyte mean corpuscular h emoglobin (mass per erythrocyte) 31 pg 25-34 Automated erythrocyte mean corpuscular h emoglobin concentration measurement (mass/volume) 36 g/dL 32-36 Automated erythrocyte distribution width ratio 14. 3 % 10.0- 14.5 Automated blood platelet count (count/volume) 294 10*3/uL [...] 10*3 1.0-4.0 Blood monocytes automated count (number/volume) 0. 7 10*3 0.0-1.0 Automated eosinophil count 0.6 10*3/uL 0 .0-0.3 Automated blood basophil count (count/volume) 0.0 10*3/uL 0.0-0.1 Bacterial blood culture - 04/10/18 17:42 Bacterial blood culture NG [facility] Influenza virus A and B antigen detectio n - 04/10/18 17:50 FLU RESULT NEGATIVE FOR INFLUENZA A AND B ANTIGENS BY IA NRG PT panel in platelet poor plasma by coag ulation assay - 04/10/18 18:03 Prothrombin time (PT) in platelet poor plasma by coagu lation assay 12.5 s 12.2-14.7 INR in platelet poor plasma or blood by coagulation as say 0.9 0.8-1.4 Activated partial thromboplastin time (a PTT) in platelet poor plasma bycoagulation assay - 04/10/18 18:03 Activated partial thromboplastin time (a PTT) in platelet poor plasma bycoagulation assay 35 s 24-35 Blood lactic acid measurement (moles/vol ume) - 04/10/18 18:03 Blood lactic acid measurement [...] 5-14 Serum or plasma urea nitrogen measurement (mass/volume ) 9 mg/dL 7-18 Serum or plasma creatinine measurement (mass/volume) 0.81 mg/dL 0.60-1.30 Serum or plasma urea nitrogen/creatinine mass ratio 11 NRG Serum or plasma creatinine measurement w ith calculation of estimated glomerular filtration rate > NRG Serum or plasma glucose measurement (mass/volume) 110 mg/dL 70-105 Serum or plasma calcium measurement (mass/volume) 9.4 mg/dL 8.5-10.1 Serum or plasma total bilirubin measurement (mass/volu me) 0.8 mg/dL 0.1-1.0 Serum or plasma alkaline phosphatase jesus surement (enzymatic activity/volume) 56 U/L 40-136 Serum or plasma aspartate aminotransfera se measurement (enzymatic activity/volume) 14 U/L 5-34 Serum or plasma alanine aminotransferase measurement (enzymatic activity/volume) 20 U/L 0-55 Serum or plasma protein measurement (mass/volume) 6.5 g/dL 6.4-8.2 Serum or plasma albumin measurement (mass/volume) 4.1 g/dL 3.2-4.5 CALCIUM CORRECTED 9.3 mg/dL 8.5-10.1 Complete urinalysis with reflex to cultu re - 04/10/18 18:09 Urine color determination YELLOW NRG Urine clarity determination CLEAR NR G Urine pH measurement by test strip 7 5-9 Specific gravity of urine by test strip 1.010 1.016-1.022 Urine protein assay by test strip, semi-quantitative NEGATIVE NEGATIVE Urine glucose detection by automated test strip NE GATIVE NEGATIVE Erythrocytes detection in urine sediment by light micr oscopy NEGATIVE NEGATIVE Urine ketones detection by automated test strip NE GATIVE NEGATIVE Urine nitrite detection by test strip NEGATIVE NEGATIVE Urine total bilirubin detection by test strip NEGA TIVE NEGATIVE Urine urobilinogen measurement by automated test strip (mass/volume) NORMAL NORMAL Urine leukocyte esterase detection by dipstick NEG ATIVE NEGATIVE Automated urine sediment erythrocyte cou nt by microscopy (number/high power field) NONE NRG Automated urine sediment leukocyte count by microscopy (number/high power field) NONE NRG Bacteria detection in urine sediment by light microsco py NONE NRG Squamous epithelial cells detection in u rine sediment by light microscopy RARE NRG Crystals detection in urine sediment by light microsco py NONE NRG Casts detection in urine sediment [...] measurement 0 % NRG Confirmatory urine 5-hydroxyindole aceti c acid (5-HIAA) measurement (mass/volume) 4.3 % NRG 24 hour urine serotonin measurement (mass/time) 4 mg/g{Cre} 0-14 Interpretation of urine 5-hydroxyindole acetic acid (HIAA) measurement See Note NRG Creatinine measurement (moles/volume) 112 % NRG Urine 5-hydroxyindoleacetate measurement (mass/volume) Not Applicable 0-15 Urine 5-hydroxyindoleacetate/creatinine mass ratio Not Applicable 800-2100 Urine catecholamines measurement (mass/v olume) - 04/30/18 17:37 Urine epinephrine measurement (mass/volume) Not Applicable % 1-7 Urine norepinephrine measurement (mass/volume) Not Applicable % 16-71 24 hour urine dopamine measurement (mass/time) Not Applicable 77-324 Urine catecholamines interpretation narrative See Note NRG Dopamine/creatinine [mass ratio] in urine 235 ug/g {Cre} 0- 250 24 hour urine norepinephrine/creatinine mass ratio 29 [...] ug/g{Cre} NRG Cortisol [interpretation] in serum or pl asma--1 hour post dose corticotropin See Note NRG Urine vanillylmandelate measurement (mas s/volume) - 04/30/18 17:37 [id number] See Note mg/g{Cre} NRG Serum ragweed IgE antibody assay 111 % NRG 24 hour urine creatinine measurement (mass/volume) Not Applicable 800-2100 Urine volume measurement 0 % NRG Urine vanillylmandelate measurement (mass/volume) 2.7 % NRG Complete blood count (CBC) with automate d white blood cell (WBC) differential - 05/12/18 14:00 Blood leukocytes automated count (number/volume) 7.1 10*3/uL 4.3-11.0 Blood erythrocytes automated count (number/volume) 4.30 10*6/uL 4.35-5.85 Venous blood hemoglobin measurement (mass/volume) 13.3 g/dL 13.3-17.7 Blood hematocrit (volume fraction) 39 % 40-54 Automated erythrocyte mean corpuscular volume 90 [ foz_us] 80-99 Automated erythrocyte mean corpuscular h emoglobin (mass per erythrocyte) 31 pg 25-34 Automated erythrocyte mean corpuscular h emoglobin concentration measurement (mass/volume) 35 g/dL 32-36 Automated erythrocyte distribution width ratio 13. 1 % 10.0- 14.5 Automated blood platelet count (count/volume) 278 10*3/uL 130-400 Automated blood platelet mean volume measurement 10.3 [foz_us] 7.4-10.4 Automated blood neutrophils/100 leukocytes 68 % 42-75 Automated blood lymphocytes/100 leukocytes 20 % 12-44 Blood monocytes/100 leukocytes 8 % 0-12 Automated blood eosinophils/100 leukocytes 4 % 0-10 Automated blood basophils/100 leukocytes 0 % 0-10 Blood neutrophils automated count (number/volume) 4.8 10*3 1.8-7.8 Blood lymphocytes automated count (number/volume) 1.4 10*3 1.0-4.0 Blood monocytes automated count (number/volume) 0. 6 10*3 0.0-1.0 Automated eosinophil count 0.3 10*3/uL 0 .0-0.3 Automated blood basophil count (count/volume) 0.0 10*3/uL 0.0-0.1 Comprehensive metabolic panel - 05/12/18 14:00 Serum or plasma sodium measurement (moles/volume) 137 mmol/L 135-145 Serum or plasma potassium measurement (moles/volume) 4.3 mmol/L 3.6-5.0 Serum or plasma chloride measurement (moles/volume) 103 mmol/L 98-107 Carbon dioxide 27 mmol/L 21-32 Serum or plasma anion gap determination (moles/volume) 7 mmol/L 5-14 Serum or plasma urea nitrogen measurement (mass/volume ) 11 mg/dL 7-18 Serum or plasma creatinine measurement (mass/volume) 0.80 mg/dL 0.60-1.30 Serum or plasma urea nitrogen/creatinine mass ratio 14 NRG Serum or plasma creatinine measurement w ith calculation of estimated glomerular filtration rate > NRG Serum or plasma glucose measurement (mass/volume) 111 mg/dL 70-105 Serum or plasma calcium measurement (mass/volume) 9.6 mg/dL 8.5-10.1 Serum or plasma total bilirubin measurement (mass/volu me) 1.0 mg/dL 0.1-1.0 Serum or plasma alkaline phosphatase jesus surement (enzymatic activity/volume) 67 U/L 40-136 Serum or plasma aspartate aminotransfera se measurement (enzymatic activity/volume) 18 U/L 5-34 Serum or plasma alanine aminotransferase measurement (enzymatic activity/volume) 28 U/L 0-55 Serum or plasma protein measurement (mass/volume) 6.7 g/dL 6.4-8.2 Serum or plasma albumin measurement (mass/volume) 4.3 g/dL 3.2-4.5 CALCIUM CORRECTED 9.4 mg/dL 8.5-10.1 Serum or plasma creatine kinase MB measu rement (enzymatic activity/volume) - 05/12/18 14:00 Serum or plasma creatine kinase MB measu rement (enzymatic activity/volume) 1.5 ng/mL <6.6 Serum or plasma troponin i.cardiac measu rement (mass/volume) - 05/12/18 14:00 Serum or plasma troponin i.cardiac measurement (mass/v olume) < ng/mL <0.30 Myoglobin, serum - 05/12/18 14:00 Myoglobin, serum 31.3 ng/mL 10.0-92.0 Serum or plasma C reactive protein measu rement (mass/volume) - 05/12/18 14:00 Serum or plasma C reactive protein measurement (mass/v olume) 0.13 mg/dL 0.00-0.50 Automated blood complete blood count (he mogram) panel - 05/15/18 13:55 Blood leukocytes automated count (number/volume) 10.9 10*3/uL 4.3-11.0 Blood erythrocytes automated count (number/volume) 4.42 10*6/uL 4.35-5.85 Venous blood hemoglobin measurement (mass/volume) 14.1 g/dL 13.3-17.7 Blood hematocrit (volume fraction) 39 % 40-54 Automated erythrocyte mean corpuscular volume 88 [ foz_us] 80-99 Automated erythrocyte mean corpuscular h emoglobin (mass per erythrocyte) 32 pg 25-34 Automated erythrocyte mean corpuscular h emoglobin concentration measurement (mass/volume) 36 g/dL 32-36 Automated erythrocyte distribution width ratio 13. 0 % 10.0- 14.5 Automated blood platelet count (count/volume) 305 10*3/uL 130-400 Automated blood platelet mean volume measurement 10.2 [foz_us] 7.4-10.4 PT panel in platelet poor plasma by coag ulation assay - 05/15/18 13:55 Prothrombin time (PT) in platelet poor plasma by coagu lation assay 12.9 s 12.2-14.7 INR in platelet poor plasma or blood by coagulation as say 1.0 0.8-1.4 Activated partial thromboplastin time (a PTT) in platelet poor plasma bycoagulation assay - 05/15/18 13:55 Activated partial thromboplastin time (a PTT) in platelet poor plasma bycoagulation assay 37 s 24-35 Comprehensive metabolic panel - 05/15/18 13:55 Serum or plasma sodium measurement (moles/volume) 139 mmol/L 135-145 Serum or plasma potassium measurement (moles/volume) 3.8 mmol/L 3.6-5.0 Serum or plasma chloride measurement (moles/volume) 103 mmol/L 98-107 Carbon dioxide 25 mmol/L 21-32 Serum or plasma anion gap determination (moles/volume) 11 mmol/L 5-14 Serum or plasma urea nitrogen measurement (mass/volume ) 12 mg/dL 7-18 Serum or plasma creatinine measurement (mass/volume) 0.81 mg/dL 0.60-1.30 Serum or plasma urea nitrogen/creatinine mass ratio 15 NRG Serum or plasma creatinine measurement w ith calculation of estimated glomerular filtration rate > NRG Serum or plasma glucose measurement (mass/volume) 96 mg/dL 70-105 Serum or plasma calcium measurement (mass/volume) 10.1 mg/dL 8.5-10.1 Serum or plasma total bilirubin measurement (mass/volu me) 1.6 mg/dL 0.1-1.0 Serum or plasma alkaline phosphatase jesus surement (enzymatic activity/volume) 67 U/L 40-136 Serum or plasma aspartate aminotransfera se measurement (enzymatic activity/volume) 17 U/L 5-34 Serum or plasma alanine aminotransferase measurement (enzymatic activity/volume) 23 U/L 0-55 Serum or plasma protein measurement (mass/volume) 7.4 g/dL 6.4-8.2 Serum or plasma albumin measurement (mass/volume) 4.6 g/dL 3.2-4.5 Lipid 1996 panel - 05/15/18 13:55 Serum or plasma triglyceride measurement (mass/volume) 154 mg/dL <150 Serum or plasma cholesterol measurement (mass/volume) 201 mg/dL < 200 Serum or plasma cholesterol in HDL measurement (mass/v olume) 36 mg/dL 40-60 Cholesterol in LDL [mass/volume] in serum or plasma by direct assay 136 mg/dL 1-129 Serum or plasma cholesterol in VLDL measurement (mass/ volume) 31 mg/dL 5-40 Methicillin resistant Staphylococcus aur eus (MRSA) screening culture - 05/15/18 13:55 Methicillin resistant Staphylococcus aureus (MRSA) scr eening culture NG NRG Automated blood complete blood count (he mogram) panel - 05/16/18 03:55 Blood leukocytes automated count (number/volume) 7.3 10*3/uL 4.3-11.0 Blood erythrocytes automated count (number/volume) 3.92 10*6/uL 4.35-5.85 Venous blood hemoglobin measurement (mass/volume) 12.2 g/dL 13.3-17.7 Blood hematocrit (volume fraction) 35 % 40-54 Automated erythrocyte mean corpuscular volume 89 [ foz_us] 80-99 Automated erythrocyte mean corpuscular h emoglobin (mass per erythrocyte) 31 pg 25-34 Automated erythrocyte mean corpuscular h emoglobin concentration measurement (mass/volume) 35 g/dL 32-36 Automated erythrocyte distribution width ratio 12. 9 % 10.0- 14.5 Automated blood platelet count (count/volume) 239 10*3/uL 130-400 Automated blood platelet mean volume measurement 10.4 [foz_us] 7.4-10.4 Whole blood basic metabolic panel - 10/27 03:55 Serum or plasma sodium measurement (moles/volume) 136 mmol/L 135-145 Serum or plasma potassium measurement (moles/volume) 3.8 mmol/L 3.6-5.0 Serum or plasma chloride measurement (moles/volume) 102 mmol/L 98-107 Carbon dioxide 22 mmol/L 21-32 Serum or plasma anion gap determination (moles/volume) 12 mmol/L 5-14 Serum or plasma urea nitrogen measurement (mass/volume ) 12 mg/dL 7-18 Serum or plasma creatinine measurement (mass/volume) 0.77 mg/dL 0.60-1.30 Serum or plasma urea nitrogen/creatinine mass ratio 16 NRG Serum or plasma creatinine measurement w ith calculation of estimated glomerular filtration rate > NRG Serum or plasma glucose measurement (mass/volume) 102 mg/dL 70-105 Serum or plasma calcium measurement (mass/volume) 9.2 mg/dL 8.5-10.1 Complete blood count (CBC) with automate d white blood cell (WBC) differential - 05/16/18 21:35 Blood leukocytes automated count (number/volume) 8.7 10*3/uL 4.3-11.0 Blood erythrocytes automated count (number/volume) 4.09 10*6/uL 4.35-5.85 Venous blood hemoglobin measurement (mass/volume) 12.9 g/dL 13.3-17.7 Blood hematocrit (volume fraction) 36 % 40-54 Automated erythrocyte mean corpuscular volume 87 [ foz_us] 80-99 Automated erythrocyte mean corpuscular h emoglobin (mass per erythrocyte) 32 pg 25-34 Automated erythrocyte mean corpuscular h emoglobin concentration measurement (mass/volume) 36 g/dL 32-36 Automated erythrocyte distribution width ratio 12. 5 % 10.0- 14.5 Automated blood platelet count (count/volume) 269 10*3/uL 130-400 Automated blood platelet mean volume measurement 10.4 [foz_us] 7.4-10.4 Automated blood neutrophils/100 leukocytes 69 % 42-75 Automated blood lymphocytes/100 leukocytes 19 % 12-44 Blood monocytes/100 leukocytes 10 % 0-12 Automated blood eosinophils/100 leukocytes 2 % 0-10 Automated blood basophils/100 leukocytes 0 % 0-10 Blood neutrophils automated count (number/volume) 6.0 10*3 1.8-7.8 Blood lymphocytes automated count (number/volume) 1.6 10*3 1.0-4.0 Blood monocytes automated count (number/volume) 0. 9 10*3 0.0-1.0 Automated eosinophil count 0.2 10*3/uL 0 .0-0.3 Automated blood basophil count (count/volume) 0.0 10*3/uL 0.0-0.1 PT panel in platelet poor plasma by coag ulation assay - 05/16/18 21:35 Prothrombin time (PT) in platelet poor plasma by coagu lation assay 13.4 s 12.2-14.7 INR in platelet poor plasma or blood by coagulation as say 1.0 0.8-1.4 Activated partial thromboplastin time (a PTT) in platelet poor plasma bycoagulation assay - 05/16/18 21:35 Activated partial thromboplastin time (a PTT) in platelet poor plasma bycoagulation assay 35 s 24-35 Comprehensive metabolic panel - 05/16/18 21:35 Serum or plasma sodium measurement (moles/volume) 135 mmol/L 135-145 Serum or plasma potassium measurement (moles/volume) 3.4 mmol/L 3.6-5.0 Serum or plasma chloride measurement (moles/volume) 100 mmol/L 98-107 Carbon dioxide 21 mmol/L 21-32 Serum or plasma anion gap determination (moles/volume) 14 mmol/L 5-14 Serum or plasma urea nitrogen measurement (mass/volume ) 9 mg/dL 7-18 Serum or plasma creatinine measurement (mass/volume) 0.75 mg/dL 0.60-1.30 Serum or plasma urea nitrogen/creatinine mass ratio 12 NRG Serum or plasma creatinine measurement w ith calculation of estimated glomerular filtration rate > NRG Serum or plasma glucose measurement (mass/volume) 110 mg/dL 70-105 Serum or plasma calcium measurement (mass/volume) 9.7 mg/dL 8.5-10.1 Serum or plasma total bilirubin measurement (mass/volu me) 2.1 mg/dL 0.1-1.0 Serum or plasma alkaline phosphatase jesus surement (enzymatic activity/volume) 61 U/L 40-136 Serum or plasma aspartate aminotransfera se measurement (enzymatic activity/volume) 14 U/L 5-34 Serum or plasma alanine aminotransferase measurement (enzymatic activity/volume) 16 U/L 0-55 Serum or plasma protein measurement (mass/volume) 6.9 g/dL 6.4-8.2 Serum or plasma albumin measurement (mass/volume) 4.4 g/dL 3.2-4.5 CALCIUM CORRECTED 9.4 mg/dL 8.5-10.1 Magnesium - 05/16/18 21:35 Magnesium 1.9 mg/dL 1.8-2.4 Serum or plasma troponin i.cardiac measu rement (mass/volume) - 05/16/18 21:35 Serum or plasma troponin i.cardiac measurement (mass/v olume) < ng/mL <0.30 Myoglobin, serum - 05/16/18 21:35 Myoglobin, serum 33.9 ng/mL 10.0-92.0 Whole blood basic metabolic panel - 01/28 09:02 Serum or plasma sodium measurement (moles/volume) 138 mmol/L 135-145 Serum or plasma potassium measurement (moles/volume) 4.1 mmol/L 3.6-5.0 Serum or plasma chloride measurement (moles/volume) 103 mmol/L 98-107 Carbon dioxide 26 mmol/L 21-32 Serum or plasma anion gap determination (moles/volume) 9 mmol/L 5-14 Serum or plasma urea nitrogen measurement (mass/volume ) 11 mg/dL 7-18 Serum or plasma creatinine measurement (mass/volume) 0.92 mg/dL 0.60-1.30 Serum or plasma urea nitrogen/creatinine mass ratio 12 NRG Serum or plasma creatinine measurement w ith calculation of estimated glomerular filtration rate > NRG Serum or plasma glucose measurement (mass/volume) 85 mg/dL 70-105 Serum or plasma calcium measurement (mass/volume) 10.3 mg/dL 8.5-10.1 Magnesium - 06/19/18 09:02 Magnesium 1.5 mg/dL 1.8-2.4 Automated blood complete blood count (he mogram) panel - 06/27/18 13:15 Blood leukocytes automated count (number/volume) 10.1 10*3/uL 4.3-11.0 Blood erythrocytes automated count (number/volume) 4.73 10*6/uL 4.35-5.85 Venous blood hemoglobin measurement (mass/volume) 14.7 g/dL 13.3-17.7 Blood hematocrit (volume fraction) 41 % 40-54 Automated erythrocyte mean corpuscular volume 86 [ foz_us] 80-99 Automated erythrocyte mean corpuscular h emoglobin (mass per erythrocyte) 31 pg 25-34 Automated erythrocyte mean corpuscular h emoglobin concentration measurement (mass/volume) 36 g/dL 32-36 Automated erythrocyte distribution width ratio 13. 2 % 10.0- 14.5 Automated blood platelet count (count/volume) 346 10*3/uL 130-400 Automated blood platelet mean volume measurement 9.7 [foz_us] 7.4-10.4 Comprehensive metabolic panel - 06/27/18 13:15 Serum or plasma sodium measurement (moles/volume) 132 mmol/L 135-145 Serum or plasma potassium measurement (moles/volume) 4.0 mmol/L 3.6-5.0 Serum or plasma chloride measurement (moles/volume) 99 mmol/L 98-107 Carbon dioxide 22 mmol/L 21-32 Serum or plasma anion gap determination (moles/volume) 11 mmol/L 5-14 Serum or plasma urea nitrogen measurement (mass/volume ) 14 mg/dL 7-18 Serum or plasma creatinine measurement (mass/volume) 0.85 mg/dL 0.60-1.30 Serum or plasma urea nitrogen/creatinine mass ratio 16 NRG Serum or plasma creatinine measurement w ith calculation of estimated glomerular filtration rate > NRG Serum or plasma glucose measurement (mass/volume) 98 mg/dL 70-105 Serum or plasma calcium measurement (mass/volume) 9.6 mg/dL 8.5-10.1 Serum or plasma total bilirubin measurement (mass/volu me) 1.0 mg/dL 0.1-1.0 Serum or plasma alkaline phosphatase jesus surement (enzymatic activity/volume) 93 U/L 40-136 Serum or plasma aspartate aminotransfera se measurement (enzymatic activity/volume) 21 U/L 5-34 Serum or plasma alanine aminotransferase measurement (enzymatic activity/volume) 28 U/L 0-55 Serum or plasma protein measurement (mass/volume) 7.5 g/dL 6.4-8.2 Serum or plasma albumin measurement (mass/volume) 4.7 g/dL 3.2-4.5 Serum or plasma uric acid measurement (m ass/volume) - 06/27/18 13:15 Serum or plasma uric acid measurement (mass/volume) 5.1 mg/dL 2.6-7.2 Magnesium - 06/27/18 13:15 Magnesium 2.3 mg/dL 1.8-2.4 Erythrocyte sedimentation rate by estephanie gren method - 06/27/18 13:15 Erythrocyte sedimentation rate by westergren method 6 mm 0- 30 Serum or plasma C reactive protein measu rement (mass/volume) - 06/27/18 13:15 Serum or plasma C reactive protein measurement (mass/v olume) 0.01 mg/dL 0.00-0.50 Serum or plasma rheumatoid factor measur ement (units/volume) - 06/27/18 13:15 Serum or plasma rheumatoid factor measurement (units/v olume) NEGATIVE NEGATIVE Antistreptolysin o (ASO) titer - 9 13:15 Antistreptolysin o (ASO) titer 272 [iU]/mL 0-120 Complete blood count (CBC) with automate d white blood cell (WBC) differential - 06/30/18 17:19 Blood leukocytes automated count (number/volume) 11.8 10*3/uL 4.3-11.0 Blood erythrocytes automated count (number/volume) 5.00 10*6/uL 4.35-5.85 Venous blood hemoglobin measurement (mass/volume) 15.4 g/dL 13.3-17.7 Blood hematocrit (volume fraction) 43 % 40-54 Automated erythrocyte mean corpuscular volume 86 [ foz_us] 80-99 Automated erythrocyte mean corpuscular h emoglobin (mass per erythrocyte) 31 pg 25-34 Automated erythrocyte mean corpuscular h emoglobin concentration measurement (mass/volume) 36 g/dL 32-36 Automated erythrocyte distribution width ratio 12. 9 % 10.0- 14.5 Automated blood platelet count (count/volume) 332 10*3/uL 130-400 Automated blood platelet mean volume measurement 9.9 [foz_us] 7.4-10.4 Automated blood neutrophils/100 leukocytes 70 % 42-75 Automated blood lymphocytes/100 leukocytes 19 % 12-44 Blood monocytes/100 leukocytes 9 % 0-12 Automated blood eosinophils/100 leukocytes 2 % 0-10 Automated blood basophils/100 leukocytes 0 % 0-10 Blood neutrophils automated count (number/volume) 8.3 10*3 1.8-7.8 Blood lymphocytes automated count (number/volume) 2.2 10*3 1.0-4.0 Blood monocytes automated count (number/volume) 1. 1 10*3 0.0-1.0 Automated eosinophil count 0.2 10*3/uL 0 .0-0.3 Automated blood basophil count (count/volume) 0.0 10*3/uL 0.0-0.1 Comprehensive metabolic panel - 06/30/18 17:19 Serum or plasma sodium measurement (moles/volume) 131 mmol/L 135-145 Serum or plasma potassium measurement (moles/volume) 4.2 mmol/L 3.6-5.0 Serum or plasma chloride measurement (moles/volume) 96 mmol/L 98-107 Carbon dioxide 21 mmol/L 21-32 Serum or plasma anion gap determination (moles/volume) 14 mmol/L 5-14 Serum or plasma urea nitrogen measurement (mass/volume ) 15 mg/dL 7-18 Serum or plasma creatinine measurement (mass/volume) 0.88 mg/dL 0.60-1.30 Serum or plasma urea nitrogen/creatinine mass ratio 17 NRG Serum or plasma creatinine measurement w ith calculation of estimated glomerular filtration rate > NRG Serum or plasma glucose measurement (mass/volume) 124 mg/dL 70-105 Serum or plasma calcium measurement (mass/volume) 10.0 mg/dL 8.5-10.1 Serum or plasma total bilirubin measurement (mass/volu me) 1.3 mg/dL 0.1-1.0 Serum or plasma alkaline phosphatase jesus surement (enzymatic activity/volume) 95 U/L 40-136 Serum or plasma aspartate aminotransfera se measurement (enzymatic activity/volume) 23 U/L 5-34 Serum or plasma alanine aminotransferase measurement (enzymatic activity/volume) 31 U/L 0-55 Serum or plasma protein measurement (mass/volume) 8.2 g/dL 6.4-8.2 Serum or plasma albumin measurement (mass/volume) 5.0 g/dL 3.2-4.5 Magnesium - 06/30/18 17:19 Magnesium 2.1 mg/dL 1.8-2.4 Complete urinalysis with reflex to cultu re - 06/30/18 17:25 Urine color determination YELLOW NRG Urine clarity determination CLEAR NR G Urine pH measurement by test strip 7 5-9 Specific gravity of urine by test strip 1.015 1.016-1.022 Urine protein assay by test strip, semi-quantitative NEGATIVE NEGATIVE Urine glucose detection by automated test strip NE GATIVE NEGATIVE Erythrocytes detection in urine sediment by light micr oscopy NEGATIVE NEGATIVE Urine ketones detection by automated test strip NE GATIVE NEGATIVE Urine nitrite detection by test strip NEGATIVE NEGATIVE Urine total bilirubin detection by test strip NEGA TIVE NEGATIVE Urine urobilinogen measurement by automated test strip (mass/volume) NORMAL NORMAL Urine leukocyte esterase detection by dipstick NEG ATIVE NEGATIVE Automated urine sediment erythrocyte cou nt by microscopy (number/high power field) NONE NRG Automated urine sediment leukocyte count by microscopy (number/high power field) NONE NRG Bacteria detection in urine sediment by light microsco py NEGATIVE NRG Crystals detection in urine sediment by light microsco py NONE NRG Casts detection in urine sediment by light microscopy NONE NRG Mucus detection in urine sediment by light microscopy NEGATIVE NRG Complete urinalysis with reflex to culture NO NRG Bacterial blood culture - 06/30/18 18:25 QUANTITY OF GROWTH . NRG Bacterial blood culture SEE [facility] Bacterial blood culture - 06/30/18 18:30 Bacterial blood culture [facility] Complete blood count (CBC) with automate d white blood cell (WBC) differential - 07/22/18 12:35 Blood leukocytes automated count (number/volume) 8.1 10*3/uL 4.3-11.0 Blood erythrocytes automated count (number/volume) 4.29 10*6/uL 4.35-5.85 Venous blood hemoglobin measurement (mass/volume) 13.1 g/dL 13.3-17.7 Blood hematocrit (volume fraction) 36 % 40-54 Automated erythrocyte mean corpuscular volume 85 [ foz_us] 80-99 Automated erythrocyte mean corpuscular h emoglobin (mass per erythrocyte) 31 pg 25-34 Automated erythrocyte mean corpuscular h emoglobin concentration measurement (mass/volume) 36 g/dL 32-36 Automated erythrocyte distribution width ratio 12. 7 % 10.0- 14.5 Automated blood platelet count (count/volume) 270 10*3/uL 130-400 Automated blood platelet mean volume measurement 9.5 [foz_us] 7.4-10.4 Automated blood neutrophils/100 leukocytes 75 % 42-75 Automated blood lymphocytes/100 leukocytes 13 % 12-44 Blood monocytes/100 leukocytes 9 % 0-12 Automated blood eosinophils/100 leukocytes 3 % 0-10 Automated blood basophils/100 leukocytes 0 % 0-10 Blood neutrophils automated count (number/volume) 6.0 10*3 1.8-7.8 Blood lymphocytes automated count (number/volume) 1.1 10*3 1.0-4.0 Blood monocytes automated count (number/volume) 0. 7 10*3 0.0-1.0 Automated eosinophil count 0.2 10*3/uL 0 .0-0.3 Automated blood basophil count (count/volume) 0.0 10*3/uL 0.0-0.1 Comprehensive metabolic panel - 07/22/18 12:35 Serum or plasma sodium measurement (moles/volume) 128 mmol/L 135-145 Serum or plasma potassium measurement (moles/volume) 4.4 mmol/L 3.6-5.0 Serum or plasma chloride measurement (moles/volume) 95 mmol/L 98-107 Carbon dioxide 24 mmol/L 21-32 Serum or plasma anion gap determination (moles/volume) 9 mmol/L 5-14 Serum or plasma urea nitrogen measurement (mass/volume ) 12 mg/dL 7-18 Serum or plasma creatinine measurement (mass/volume) 0.83 mg/dL 0.60-1.30 Serum or plasma urea nitrogen/creatinine mass ratio 14 NRG Serum or plasma creatinine measurement w ith calculation of estimated glomerular filtration rate > NRG Serum or plasma glucose measurement (mass/volume) 114 mg/dL 70-105 Serum or plasma calcium measurement (mass/volume) 9.6 mg/dL 8.5-10.1 Serum or plasma total bilirubin measurement (mass/volu me) 1.2 mg/dL 0.1-1.0 Serum or plasma alkaline phosphatase jesus surement (enzymatic activity/volume) 70 U/L 40-136 Serum or plasma aspartate aminotransfera se measurement (enzymatic activity/volume) 22 U/L 5-34 Serum or plasma alanine aminotransferase measurement (enzymatic activity/volume) 30 U/L 0-55 Serum or plasma protein measurement (mass/volume) 6.9 g/dL 6.4-8.2 Serum or plasma albumin measurement (mass/volume) 4.3 g/dL 3.2-4.5 CALCIUM CORRECTED 9.4 mg/dL 8.5-10.1 Magnesium - 07/22/18 12:35 Magnesium 1.8 mg/dL 1.8-2.4 Comprehensive metabolic panel - 07/23/18 13:37 Serum or plasma sodium measurement (moles/volume) 129 mmol/L 135-145 Serum or plasma potassium measurement (moles/volume) 4.0 mmol/L 3.6-5.0 Serum or plasma chloride measurement (moles/volume) 97 mmol/L 98-107 Carbon dioxide 22 mmol/L -32 Serum or plasma anion gap determination (moles/volume) 10 mmol/L 5-14 Serum or plasma urea nitrogen measurement (mass/volume ) 8 mg/dL 7-18 Serum or plasma creatinine measurement (mass/volume) 0.80 mg/dL 0.60-1.30 Serum or plasma urea nitrogen/creatinine mass ratio 10 NRG Serum or plasma creatinine measurement w ith calculation of estimated glomerular filtration rate > NRG Serum or plasma glucose measurement (mass/volume) 107 mg/dL 70-105 Serum or plasma calcium measurement (mass/volume) 9.5 mg/dL 8.5-10.1 Serum or plasma total bilirubin measurement (mass/volu me) 1.2 mg/dL 0.1-1.0 Serum or plasma alkaline phosphatase jesus surement (enzymatic activity/volume) 65 U/L 40-136 Serum or plasma aspartate aminotransfera se measurement (enzymatic activity/volume) 21 U/L 5-34 Serum or plasma alanine aminotransferase measurement (enzymatic activity/volume) 28 U/L 0-55 Serum or plasma protein measurement (mass/volume) 6.9 g/dL 6.4-8.2 Serum or plasma albumin measurement (mass/volume) 4.3 g/dL 3.2-4.5 CALCIUM CORRECTED 9.3 mg/dL 8.5-10.1 Whole blood basic metabolic panel - 07/13 01/28 09:24 Serum or plasma sodium measurement (moles/volume) 133 mmol/L 135-145 Serum or plasma potassium measurement (moles/volume) 3.9 mmol/L 3.6-5.0 Serum or plasma chloride measurement (moles/volume) 98 mmol/L 98-107 Carbon dioxide 24 mmol/L 21-32 Serum or plasma anion gap determination (moles/volume) 11 mmol/L 5-14 Serum or plasma urea nitrogen measurement (mass/volume ) 12 mg/dL 7-18 Serum or plasma creatinine measurement (mass/volume) 0.90 mg/dL 0.60-1.30 Serum or plasma urea nitrogen/creatinine mass ratio 13 NRG Serum or plasma creatinine measurement w ith calculation of estimated glomerular filtration rate > NRG Serum or plasma glucose measurement (mass/volume) 119 mg/dL 70-105 Serum or plasma calcium measurement (mass/volume) 10.2 mg/dL 8.5-10.1 Complete blood count (CBC) with automate d white blood cell (WBC) differential - 08/22/18 17:00 Blood leukocytes automated count (number/volume) 8.3 10*3/uL 4.3-11.0 Blood erythrocytes automated count (number/volume) 4.36 10*6/uL 4.35-5.85 Venous blood hemoglobin measurement (mass/volume) 13.6 g/dL 13.3-17.7 Blood hematocrit (volume fraction) 38 % 40-54 Automated erythrocyte mean corpuscular volume 87 [ foz_us] 80-99 Automated erythrocyte mean corpuscular h emoglobin (mass per erythrocyte) 31 pg 25-34 Automated erythrocyte mean corpuscular h emoglobin concentration measurement (mass/volume) 36 g/dL 32-36 Automated erythrocyte distribution width ratio 13. 9 % 10.0- 14.5 Automated blood platelet count (count/volume) 318 10*3/uL 130-400 Automated blood platelet mean volume measurement 9.6 [foz_us] 7.4-10.4 Automated blood neutrophils/100 leukocytes 68 % 42-75 Automated blood lymphocytes/100 leukocytes 20 % 12-44 Blood monocytes/100 leukocytes 8 % 0-12 Automated blood eosinophils/100 leukocytes 4 % 0-10 Automated blood basophils/100 leukocytes 0 % 0-10 Blood neutrophils automated count (number/volume) 5.6 10*3 1.8-7.8 Blood lymphocytes automated count (number/volume) 1.7 10*3 1.0-4.0 Blood monocytes automated count (number/volume) 0. 7 10*3 0.0-1.0 Automated eosinophil count 0.3 10*3/uL 0 .0-0.3 Automated blood basophil count (count/volume) 0.0 10*3/uL 0.0-0.1 Comprehensive metabolic panel - 08/22/18 17:00 Serum or plasma sodium measurement (moles/volume) 133 mmol/L 135-145 Serum or plasma potassium measurement (moles/volume) 4.0 mmol/L 3.6-5.0 Serum or plasma chloride measurement (moles/volume) 100 mmol/L 98-107 Carbon dioxide 23 mmol/L 21-32 Serum or plasma anion gap determination (moles/volume) 10 mmol/L 5-14 Serum or plasma urea nitrogen measurement (mass/volume ) 12 mg/dL 7-18 Serum or plasma creatinine measurement (mass/volume) 0.82 mg/dL 0.60-1.30 Serum or plasma urea nitrogen/creatinine mass ratio 15 NRG Serum or plasma creatinine measurement w ith calculation of estimated glomerular filtration rate > NRG Serum or plasma glucose measurement (mass/volume) 121 mg/dL 70-105 Serum or plasma calcium measurement (mass/volume) 9.7 mg/dL 8.5-10.1 Serum or plasma total bilirubin measurement (mass/volu me) 0.7 mg/dL 0.1-1.0 Serum or plasma alkaline phosphatase jesus surement (enzymatic activity/volume) 82 U/L 40-136 Serum or plasma aspartate aminotransfera se measurement (enzymatic activity/volume) 21 U/L 5-34 Serum or plasma alanine aminotransferase measurement (enzymatic activity/volume) 22 U/L 0-55 Serum or plasma protein measurement (mass/volume) 7.1 g/dL 6.4-8.2 Serum or plasma albumin measurement (mass/volume) 4.4 g/dL 3.2-4.5 CALCIUM CORRECTED 9.4 mg/dL 8.5-10.1 Lipase - 08/22/18 17:00 Lipase 29 U/L 8-78 THYROID STIMULATING HORMONE - 08/22/18 1 7:00 THYROID STIMULATING HORMONE 2.26 u[iU]/mL 0.35-4.94 Serum or plasma thyroxine (T4) free christine urement (mass/volume) - 08/22/18 17:00 Serum or plasma thyroxine (T4) free measurement (mass/ volume) 0.98 ng/dL 0.70-1.48 Complete urinalysis with reflex to cultu re - 08/22/18 17:30 Urine color determination YELLOW NRG Urine clarity determination SLIGHTLY CLOUDY NRG Urine pH measurement by test strip 6.5 5-9 Specific gravity of urine by test strip 1.015 1.016-1.022 Urine protein assay by test strip, semi-quantitative NEGATIVE NEGATIVE Urine glucose detection by automated test strip NE GATIVE NEGATIVE Erythrocytes detection in urine sediment by light micr oscopy NEGATIVE NEGATIVE Urine ketones detection by automated test strip NE GATIVE NEGATIVE Urine nitrite detection by test strip NEGATIVE NEGATIVE Urine total bilirubin detection by test strip NEGA TIVE NEGATIVE Urine urobilinogen measurement by automated test strip (mass/volume) NORMAL NORMAL Urine leukocyte esterase detection by dipstick NEG ATIVE NEGATIVE Automated urine sediment erythrocyte cou nt by microscopy (number/high power field) NONE NRG Automated urine sediment leukocyte count by microscopy (number/high power field) NONE NRG Bacteria detection in urine sediment by light microsco py NEGATIVE NRG Crystals detection in urine sediment by light microsco py NONE NRG Casts detection in urine sediment by light microscopy NONE NRG Mucus detection in urine sediment by light microscopy NEGATIVE NRG Complete urinalysis with reflex to culture NO NRG Complete blood count (CBC) with automate d white blood cell (WBC) differential - 11/17/18 11:32 Blood leukocytes automated count (number/volume) 6.2 10*3/uL 4.3-11.0 Blood erythrocytes automated count (number/volume) 4.57 10*6/uL 4.35-5.85 Venous blood hemoglobin measurement (mass/volume) 14.4 g/dL 13.3-17.7 Blood hematocrit (volume fraction) 40 % 40-54 Automated erythrocyte mean corpuscular volume 88 [ foz_us] 80-99 Automated erythrocyte mean corpuscular h emoglobin (mass per erythrocyte) 32 pg 25-34 Automated erythrocyte mean corpuscular h emoglobin concentration measurement (mass/volume) 36 g/dL 32-36 Automated erythrocyte distribution width ratio 12. 7 % 10.0- 14.5 Automated blood platelet count (count/volume) 320 10*3/uL 130-400 Automated blood platelet mean volume measurement 10.0 [foz_us] 7.4-10.4 Automated blood neutrophils/100 leukocytes 62 % 42-75 Automated blood lymphocytes/100 leukocytes 24 % 12-44 Blood monocytes/100 leukocytes 12 % 0-12 Automated blood eosinophils/100 leukocytes 2 % 0-10 Automated blood basophils/100 leukocytes 0 % 0-10 Blood neutrophils automated count (number/volume) 3.9 10*3 1.8-7.8 Blood lymphocytes automated count (number/volume) 1.5 10*3 1.0-4.0 Blood monocytes automated count (number/volume) 0. 7 10*3 0.0-1.0 Automated eosinophil count 0.1 10*3/uL 0 .0-0.3 Automated blood basophil count (count/volume) 0.0 10*3/uL 0.0-0.1 Comprehensive metabolic panel - 11/17/18 11:32 Serum or plasma sodium measurement (moles/volume) 138 mmol/L 135-145 Serum or plasma potassium measurement (moles/volume) 4.1 mmol/L 3.6-5.0 Serum or plasma chloride measurement (moles/volume) 103 mmol/L 98-107 Carbon dioxide 23 mmol/L 21-32 Serum or plasma anion gap determination (moles/volume) 12 mmol/L 5-14 Serum or plasma urea nitrogen measurement (mass/volume ) 9 mg/dL 7-18 Serum or plasma creatinine measurement (mass/volume) 0.86 mg/dL 0.60-1.30 Serum or plasma urea nitrogen/creatinine mass ratio 10 NRG Serum or plasma creatinine measurement w ith calculation of estimated glomerular filtration rate > NRG Serum or plasma glucose measurement (mass/volume) 84 mg/dL 70-105 Serum or plasma calcium measurement (mass/volume) 10.1 mg/dL 8.5-10.1 Serum or plasma total bilirubin measurement (mass/volu me) 1.0 mg/dL 0.1-1.0 Serum or plasma alkaline phosphatase jesus surement (enzymatic activity/volume) 62 U/L 40-136 Serum or plasma aspartate aminotransfera se measurement (enzymatic activity/volume) 16 U/L 5-34 Serum or plasma alanine aminotransferase measurement (enzymatic activity/volume) 17 U/L 0-55 Serum or plasma protein measurement (mass/volume) 7.4 g/dL 6.4-8.2 Serum or plasma albumin measurement (mass/volume) 4.6 g/dL 3.2-4.5 Serum or plasma troponin i.cardiac measu rement (mass/volume) - 11/17/18 11:32 Serum or plasma troponin i.cardiac measurement (mass/v olume) < ng/mL <0.028 Tick identification panel - 11/17/18 11: 32 Serum Ehrlichia chaffeensis IgG antibody detection <1:16 <1:16 Serum Ehrlichia chaffeensis IgM antibody detection <1:10 <1:10 Serum Rickettsia rickettsii IgG antibody assay (units/ volume) < <1:16 [place] spotted fever panel < <1:10 Francisella tularensis antibody assay 1:80 NRG LYME AB G M 0.08 % 0.00-0.89 Interpretation of Lyme disease antibody assay Nega tive Negative Blood CBC with ordered manual differenti al panel - 11/26/18 15:15 Blood leukocytes automated count (number/volume) 5.6 10*3/uL 4.3-11.0 Blood erythrocytes automated count (number/volume) 4.55 10*6/uL 4.35-5.85 Venous blood hemoglobin measurement (mass/volume) 14.2 g/dL 13.3-17.7 Blood hematocrit (volume fraction) 40 % 40-54 Automated erythrocyte mean corpuscular volume 88 [ foz_us] 80-99 Automated erythrocyte mean corpuscular h emoglobin (mass per erythrocyte) 31 pg 25-34 Automated erythrocyte mean corpuscular h emoglobin concentration measurement (mass/volume) 35 g/dL 32-36 Automated erythrocyte distribution width ratio 12. 5 % 10.0- 14.5 Automated blood platelet count (count/volume) 271 10*3/uL 130-400 Automated blood platelet mean volume measurement 10.5 [foz_us] 7.4-10.4 Automated blood neutrophils/100 leukocytes 64 % 42-75 Automated blood lymphocytes/100 leukocytes 22 % 12-44 Blood monocytes/100 leukocytes 9 % NRG Automated blood eosinophils/100 leukocytes 4 % 0-10 Automated blood basophils/100 leukocytes 0 % 0-10 Blood neutrophils automated count (number/volume) 3.6 10*3 1.8-7.8 Blood lymphocytes automated count (number/volume) 1.2 10*3 1.0-4.0 Blood monocytes automated count (number/volume) 0. 6 10*3 0.0-1.0 Automated eosinophil count 0.2 10*3/uL 0 .0-0.3 Automated blood basophil count (count/volume) 0.0 10*3/uL 0.0-0.1 Manual blood segmented neutrophils/100 leukocytes 67 % NRG Blood band neutrophils/100 leukocytes 0 % NRG Manual blood lymphocytes/100 leukocytes 18 % NRG Manual eosinophils/100 leukocytes in nose 3 % NRG Manual blood basophils/100 leukocytes 0 % NRG Blood lymphocytes variant/100 leukocytes 3 % NRG Blood erythrocyte morphology finding identification [facility] Comprehensive metabolic panel - 11/26/18 15:15 Serum or plasma sodium measurement (moles/volume) 138 mmol/L 135-145 Serum or plasma potassium measurement (moles/volume) 3.7 mmol/L 3.6-5.0 Serum or plasma chloride measurement (moles/volume) 104 mmol/L 98-107 Carbon dioxide 24 mmol/L 21-32 Serum or plasma anion gap determination (moles/volume) 10 mmol/L 5-14 Serum or plasma urea nitrogen measurement (mass/volume ) 7 mg/dL 7-18 Serum or plasma creatinine measurement (mass/volume) 0.92 mg/dL 0.60-1.30 Serum or plasma urea nitrogen/creatinine mass ratio 8 NRG Serum or plasma creatinine measurement w ith calculation of estimated glomerular filtration rate > NRG Serum or plasma glucose measurement (mass/volume) 116 mg/dL 70-105 Serum or plasma calcium measurement (mass/volume) 10.0 mg/dL 8.5-10.1 Serum or plasma total bilirubin measurement (mass/volu me) 0.6 mg/dL 0.1-1.0 Serum or plasma alkaline phosphatase jesus surement (enzymatic activity/volume) 67 U/L 40-136 Serum or plasma aspartate aminotransfera se measurement (enzymatic activity/volume) 15 U/L 5-34 Serum or plasma alanine aminotransferase measurement (enzymatic activity/volume) 18 U/L 0-55 Serum or plasma protein measurement (mass/volume) 7.0 g/dL 6.4-8.2 Serum or plasma albumin measurement (mass/volume) 4.4 g/dL 3.2-4.5 CALCIUM CORRECTED 9.7 mg/dL 8.5-10.1 Serum or plasma troponin i.cardiac measu rement (mass/volume) - 11/26/18 15:15 Serum or plasma troponin i.cardiac measurement (mass/v olume) < ng/mL <0.028 Complete blood count (CBC) with automate d white blood cell (WBC) differential - 09/17/19 18:30 Blood leukocytes automated count (number/volume) 8.5 10*3/uL 4.3-11.0 Blood erythrocytes automated count (number/volume) 4.50 10*6/uL 4.35-5.85 Venous blood hemoglobin measurement (mass/volume) 14.0 g/dL 13.3-17.7 Blood hematocrit (volume fraction) 39 % 40-54 Automated erythrocyte mean corpuscular volume 86 [ foz_us] 80-99 Automated erythrocyte mean corpuscular h emoglobin (mass per erythrocyte) 31 pg 25-34 Automated erythrocyte mean corpuscular h emoglobin concentration measurement (mass/volume) 36 g/dL 32-36 Automated erythrocyte distribution width ratio 13. 6 % 10.0- 14.5 Automated blood platelet count (count/volume) 277 10*3/uL 130-400 Automated blood platelet mean volume measurement 10.3 [foz_us] 7.4-10.4 Automated blood neutrophils/100 leukocytes 65 % 42-75 Automated blood lymphocytes/100 leukocytes 23 % 12-44 Blood monocytes/100 leukocytes 10 % 0-12 Automated blood eosinophils/100 leukocytes 2 % 0-10 Automated blood basophils/100 leukocytes 0 % 0-10 Blood neutrophils automated count (number/volume) 5.5 10*3 1.8-7.8 Blood lymphocytes automated count (number/volume) 2.0 10*3 1.0-4.0 Blood monocytes automated count (number/volume) 0. 9 10*3 0.0-1.0 Automated eosinophil count 0.2 10*3/uL 0 .0-0.3 Automated blood basophil count (count/volume) 0.0 10*3/uL 0.0-0.1 Comprehensive metabolic panel - 09/17/19 18:30 Serum or plasma sodium measurement (moles/volume) 136 mmol/L 135-145 Serum or plasma potassium measurement (moles/volume) 3.9 mmol/L 3.6-5.0 Serum or plasma chloride measurement (moles/volume) 103 mmol/L 98-107 Carbon dioxide 20 mmol/L 21-32 Serum or plasma anion gap determination (moles/volume) 13 mmol/L 5-14 Serum or plasma urea nitrogen measurement (mass/volume ) 16 mg/dL 7-18 Serum or plasma creatinine measurement (mass/volume) 0.95 mg/dL 0.60-1.30 Serum or plasma urea nitrogen/creatinine mass ratio 17 NRG Serum or plasma creatinine measurement w ith calculation of estimated glomerular filtration rate > NRG Serum or plasma glucose measurement (mass/volume) 100 mg/dL 70-105 Serum or plasma calcium measurement (mass/volume) 9.9 mg/dL 8.5-10.1 Serum or plasma total bilirubin measurement (mass/volu me) 0.9 mg/dL 0.1-1.0 Serum or plasma alkaline phosphatase jesus surement (enzymatic activity/volume) 82 U/L 40-136 Serum or plasma aspartate aminotransfera se measurement (enzymatic activity/volume) 20 U/L 5-34 Serum or plasma alanine aminotransferase measurement (enzymatic activity/volume) 22 U/L 0-55 Serum or plasma protein measurement (mass/volume) 6.0 g/dL 6.4-8.2 Serum or plasma albumin measurement (mass/volume) 4.6 g/dL 3.2-4.5 Magnesium - 09/17/19 18:30 Magnesium 1.6 mg/dL 1.6-2.4 Serum or plasma troponin i.cardiac measu rement (mass/volume) - 09/17/19 18:30 Serum or plasma troponin i.cardiac measurement (mass/v olume) < ng/mL <0.028 Myoglobin, serum - 09/17/19 18:30 Myoglobin, serum 56.9 ng/mL 10.0-92.0 Serum or plasma lithium measurement (mol es/volume) - 09/17/19 18:30 BNP PT 20.1 pg/mL <100.0 PT panel in platelet poor plasma by coag ulation assay - 09/17/19 19:13 Prothrombin time (PT) in platelet poor plasma by coagu lation assay 12.9 s 12.2-14.7 INR in platelet poor plasma or blood by coagulation as say 0.9 0.8-1.4 Activated partial thromboplastin time (a PTT) in platelet poor plasma bycoagulation assay - 09/17/19 19:13 Activated partial thromboplastin time (a PTT) in platelet poor plasma bycoagulation assay 37 s 24-35 Encounters ACCT No. Visit Date/Time Discharge Status Pt. Type Provider Facility Loc./Unit Complaint [id number] 08/28/2017 15:07:46 08/28/2017 23:59:5 9 CLS Outpatient [id number] 08/22/2019 09:34:00 23:59:59 CLS Outpatient AMADO MAI MD [facility] CARD PALPITATIONS [id number] 06/05/2019 07:45:00 08:41:00 DIS Emergency MABEL BIRMINGHAM MD [facility] ER NECK PAIN [id number] 05/24/2019 12:35:00 23:59:59 CLS Outpatient AMADO MAI MD [facility] RAD TINGLING,NUMBNESS IN A HUA [id number] 12/11/2018 14:49:00 23:59:59 CLS Outpatient MANUELA CHUA MD [facility] RAD HEADACHE [id number] 11/30/2018 10:23:00 12:15:00 DIS Outpatient SHANE STAHL MD [facility] ENDO ABD PAIN/REFLUX [id number] 11/26/2018 15:01:00 17:09:00 DIS Emergency CLAIRE JONES MD [facility] ER ELEV BP [id number] 11/26/2018 09:15:00 10:13:00 DIS Outpatient SHANE STAHL MD [facility] PREOP EGD [id number] 11/17/2018 10:04:00 15:08:00 DIS Emergency MAU MOORE [facility] ER HIGH BP 180/90 - ACHING - NAUSEA [id number] 08/31/2018 13:11:00 23:59:59 CLS Outpatient KAREN DEJESUS DO [facility] RAD DIZZINESS, VERT IGO, ANXIETY, HYPERTENSION [id number] 08/27/2018 15:53:00 23:59:59 CLS Preadmit KAREN DEJESUS DO [facility] RAD DIZZINESS,VERTIGO [id number] 08/22/2018 16:32:00 19:40:00 DIS Emergency MAGNO FOLEY DIRECTOR OF TEENAGE ACTIVITIES [facility] ER DIZZY,NAUSEA,LEG CRAMPS ,SHAKY [id number] 07/30/2018 09:16:00 23:59:59 CLS Outpatient KAREN DEJESUS DO [facility] LAB E87.0 [id number] 07/23/2018 13:28:00 23:59:59 CLS Outpatient HARLAN HERNANDEZ DIRECTOR OF TEENAGE ACTIVITIES [facility] LAB HYPONATREMIA [id number] 07/22/2018 11:46:00 14:15:00 DIS Emergency CLAIRE JONES MD [facility] ER LIGHTHEADED,LEGS WEAK, STARTED MONDAY [id number] 07/18/2018 09:06:00 23:59:59 CLS Outpatient GINGER ARANDA FACC, MIQUEL BARTHP CC DS [facility] LAB I25.10,I10 [id number] 06/30/2018 17:08:00 18:37:00 DIS Emergency CLAIRE JONES MD [facility] ER LEG CRAMPS [id number] 06/30/2018 17:04:00 17:04:00 CAN Outpatient DONALD FRAZIER APRN [facility] LAB CRAMP AND SPASM [id number] 06/27/2018 13:03:00 23:59:59 CLS Outpatient HARLAN HERNANDEZ APRN [facility] LAB HYPOKALEMIA [id number] 06/19/2018 08:46:00 23:59:59 CLS Outpatient KAREN DEJESUS DO [facility] LAB I10 [id number] 06/06/2018 09:59:00 23:59:59 CLS Outpatient KAREN DEJESUS DO [facility] RAD HEADACHE R51 [id number] 05/29/2018 12:46:00 23:59:59 CLS Outpatient GINGER ARANDA FACC, MIQUEL NAZARIO CC DS [facility] CARD CAD,HTN,SOB,PALPIATATIONS [id number] 05/25/2018 11:51:00 23:59:59 CLS Preadmit GINGER ARANDA FACC, MIQUEL NAZARIO CCDS [facility] CARD CAD,HYPERTENSION,PALPITATIONS,SOB [id number] 05/16/2018 19:23:00 23:01:00 DIS Emergency NING RIOS MD [facility] ER HEART CATH YEST ERDAY/FEELING NAUSEA / FEELING SICK [id number] 05/15/2018 13:29:00 09:56:00 DIS Outpatient GINGER ARANDA FACC, MIQUEL NAZARIO CC DS [facility] CATH PALPITATIONS,SOB,HTN,FATIGUE [id number] 05/12/2018 13:43:00 23:59:59 CLS Outpatient HARLAN HERNANDEZ APRN [facility] LAB L ARM PAIN,FATIGUE,MYALGIA,BRADYCARDIA [id number] 05/01/2018 08:45:00 09:15:00 DIS Outpatient KAREN DEJESUS DO [facility] SLEEP TIAGO [id number] 04/30/2018 17:20:00 23:59:59 CLS Outpatient KAREN DEJESUS DO [facility] LAB URIOLE [id number] 04/10/2018 17:00:00 19:19:00 DIS Outpatient GABRIEL ARANDA, NING Levi [facility] ER SHAKEY, SLEEPY, UPPER BODY HOT, LIGHTHEADED [id number] 03/16/2018 10:36:00 23:59:59 CLS Outpatient KAREN DEJESUS DO [facility] LAB Z72.89 [id number] 03/06/2018 18:15:00 018 22:53:00 DIS Emergency BHAKTI PANIAGUA MD [facility] ER ELEVATED BP,WEA KNESS [id number] 03/05/2018 23:10:00 018 01:15:00 DIS Emergency BHAKTI PANIAGUA [facility] [facility] ARRHYTHMIA,NAUS EA [id number] 03/01/2018 07:42:00 018 23:59:59 CLS Outpatient BRITTNY LOZANO MD [facility] LAB LOW TESTOSTERONE SYMPTO MS,FATIGUE [id number] 02/09/2018 16:42:00 018 23:59:59 CLS Outpatient DONALD FRAZIER L DIRECTOR OF TEENAGE ACTIVITIES [facility] LAB FATIGUE;DIZZINESS;HYPERTENSION;LIGHTHEADED;MYALGIA [id number] 02/08/2018 07:39:00 018 23:59:59 CLS Outpatient GINGER ARANDA FACC, MIQUEL BARTHP CC DS [facility] CARD PALPITATION S,SOB,HTN [id number] 02/06/2018 11:02:00 018 23:59:59 CLS Outpatient GINGER ARANDA FACC, MIQUEL NAZARIO CC DS [facility] CARD PALPITATION S,SOB,HTN [id number] 01/08/2018 14:03:00 018 23:59:59 CLS Preadmit JOHN MCBRIDEHER Weinstein READING ASSISTANT [facility] RAD HTN [id number] 01/08/2018 13:57:00 018 23:59:59 CLS Outpatient JOHN MCBRIDEHER Weinstein READING ASSISTANT [facility] CARD HTN [id number] 01/06/2018 14:58:00 018 16:10:00 DIS Emergency MAGNO FOLEY DIRECTOR OF TEENAGE ACTIVITIES [facility] ER ELEV BP [id number] 12/23/2017 08:59:00 018 10:05:00 DIS Emergency JOHNNIE DO, GABRIELA K [facility] ER HIGH BLOOD PRESSURE, NA USEA [id number] 2017 09:34:00 018 23:59:59 CLS Outpatient CLEMENTRYAN CROWLEY R DIRECTOR OF TEENAGE ACTIVITIES [facility] CARD HTN,DIAPHORESIS [id number] 2017 17:29:00 018 19:07:00 DIS Emergency MAGNO FOLEY DIRECTOR OF TEENAGE ACTIVITIES [facility] ER HIGH BP [id number] 10/18/2017 19:08:00 018 22:50:00 DIS Emergency BHAKTI PANIAGUA MD [facility] ER HIGH BP [id number] 08/21/2017 12:37:00 018 23:59:59 CLS Outpatient MARY VALDES MD [facility] RAD CERVICALGIA [id number] 09/06/2016 09:37:00 017 23:59:59 CLS Outpatient MARY VALDES MD [facility] RAD DIVERTICULITIS [id number] 04/01/2016 07:19:00 016 08:15:00 DIS Outpatient BELEN BOLES MD [facility] CARD DISC DISORER [id number] 12/25/2015 08:37:00 016 23:59:59 CLS Outpatient BELEN BOLES MD [facility] CARD DISC DISORDER W/RADICUL OPATHY [id number] 10/27/2015 08:58:00 016 23:59:59 CLS Outpatient MARY VALDES MD [facility] RAD LUMBAR PAIN, RADICULOP ATHY [id number] 03/03/2015 18:35:00 015 23:59:59 CLS Outpatient MARY VALDSE MD [facility] RAD FEVER,ABD PAIN,DIVERTI CULOSIS [id number] 02/09/2015 10:55:00 16:55:00 DIS Outpatient IJEOMA CHIU MD [facility] SDC COMPRESSION FRACTURE [id number] 02/04/2015 09:19:00 23:59:59 CLS Outpatient IJEOMA CHIU MD [facility] PREOP COMPRESSION FRACTURE [id number] 10/31/2014 14:27:00 23:59:59 CLS Outpatient MELCHOR ALDANA READING ASSISTANT [facility] RAD ABD PAIN,DIARRH EA [id number] 10/31/2014 17:30:00 18:54:00 DIS Emergency NING RIOS MD [facility] ER LOWER INTESTINE BLOCKAGE [id number] 10/30/2014 14:36:00 23:59:59 CLS Outpatient MARY VALDES MD [facility] RAD LUMBAR PAIN, FALL 10/09 [id number] 12/05/2012 09:20:00 013 23:59:59 CLS Outpatient MARY VALDES MD [facility] LAB HTN [id number] 09/17/2019 18:43:00 Document Registration [id number] 08/22/2018 16:54:00 Document Registration [id number] 01/16/2018 22:32:00 Document Registration [id number] 01/26/2015 09:08:00 Document Registration [id number] 10/30/2014 14:35:00 Document Registration [id number] 08/31/2012 14:55:00 Document Registration [id number] 07/04/2012 08:44:00 Document Registration [id number] 08/29/2011 13:00:00 Document Registration [id number] 02/01/2011 07:54:00 Document Registration
== END 2019-09-17 19:43 | disposition home or self-care (01) ==
LOC: EDUNIT# 18:15 → ER 18:16
DX: R00.2 Palpitations (principal); I10 Essential (primary) hypertension; I25.10 Atherosclerotic heart disease of native coronary artery without angina pectoris; K21.9 Gastro-esophageal reflux disease without esophagitis; F41.9 Anxiety disorder, unspecified; Z88.1 Allergy status to other antibiotic agents; Z88.2 Allergy status to sulfonamides; Z88.5 Allergy status to narcotic agent; Z88.8 Allergy status to other drugs, medicaments and biological substances; Z79.02 Long term (current) use of antithrombotics/antiplatelets; Z87.891 Personal history of nicotine dependence; Z95.5 Presence of coronary angioplasty implant and graft
CPT/HCPCS: 36415; 71045; 80053; 83735; 83874; 83880; 84484; 85025; 85610; 85730; 93041

== ENCOUNTER → 2019-10-07 | Outpatient (CLI) | payer BC ==
[~2019-10-07] VITALS: Ht 182 cm; Wt 88.6 kg
[~2019-10-07] MED LIST changes: +NS IV 1000 ML 1,000 ML IV ONE; +NS IV 1000 ML 1,000 ML ONE
[2019-10-07 13:58] VITALS: BP 179/94
[2019-10-07 14:15] LABS: ALANINE AMINOTRANSFERASE 21 U/L (0-55); ALBUMIN 4.4 GM/DL (3.2-4.5); ALKALINE PHOSPHATASE 94 U/L (40-136); BILIRUBIN,TOTAL 0.7 MG/DL (0.1-1.0); BUN/CREATININE RATIO 10; CALCIUM 9.5 MG/DL (8.5-10.1); CARBON DIOXIDE 23 MMOL/L (21-32); CHLORIDE 99 MMOL/L (98-107); CREATININE SERUM 0.84 MG/DL (0.60-1.30); GFR ESTIMATED > 60; GLUCOSE 96 MG/DL (70-105); MAGNESIUM 1.6 MG/DL (1.6-2.4); POTASSIUM 4.1 MMOL/L (3.6-5.0); SODIUM 132 MMOL/L (135-145); TOTAL PROTEIN 6.7 GM/DL (6.4-8.2)
== END ==
LOC: SDC 13:37
PROVIDERS: ATTEND Nurse Practitioner Family
DX: E87.1 Hypo-osmolality and hyponatremia (principal); E83.42 Hypomagnesemia
CPT/HCPCS: 36415; 80053; 83735

== ENCOUNTER 2019-10-18 08:44 | Outpatient (CLI) | payer BC ==
[~2019-10-18] VITALS: Ht 182.9 cm; Wt 86.4 kg
[2019-10-18] MEDS ORDERED: NS IV 1000 ML 1,000 ML ONE (08:47)
[2019-10-18] MEDS ORDERED: NS IV 1000 ML 1,000 ML IV SCH (09:00)
[2019-10-18 10:00] LABS: ALBUMIN 4.3 GM/DL (3.2-4.5); CHLORIDE 102 MMOL/L (98-107); POTASSIUM 4.4 MMOL/L (3.6-5.0); SODIUM 133 MMOL/L (135-145)
[2019-10-18 10:01] LABS: CALCIUM 9.3 MG/DL (8.5-10.1)
[2019-10-18 10:02] LABS: GLUCOSE 96 MG/DL (70-105)
[2019-10-18 10:03] LABS: TOTAL PROTEIN 6.8 GM/DL (6.4-8.2)
[2019-10-18 10:04] LABS: CARBON DIOXIDE 21 MMOL/L (21-32)
[2019-10-18 10:06] LABS: ALKALINE PHOSPHATASE 71 U/L (40-136); CREATININE SERUM 0.83 MG/DL (0.60-1.30); GFR ESTIMATED > 60
[2019-10-18 10:07] LABS: BUN/CREATININE RATIO 18
[2019-10-18 10:09] LABS: ALANINE AMINOTRANSFERASE 20 U/L (0-55); MAGNESIUM 1.8 MG/DL (1.6-2.4)
[2019-10-18 10:12] VITALS: BP 147/87
== END 2019-10-18 10:35 | disposition home or self-care (01) ==
LOC: SDC 08:44
PROVIDERS: ATTEND Nurse Practitioner Family
DX: E87.1 Hypo-osmolality and hyponatremia (principal); E83.42 Hypomagnesemia
CPT/HCPCS: 36415; 80053; 83735; 96360; 96361

== ENCOUNTER → 2019-10-18 | Outpatient (CLI) | payer BC ==
[~2019-10-18] MED LIST changes: -NS IV 1000 ML 1,000 ML IV ONE; -NS IV 1000 ML 1,000 ML ONE
== END ==
LOC: LABNPT 09:48
PROVIDERS: ATTEND Family Medicine
DX: R50.9 Fever, unspecified (principal); R25.2 Cramp and spasm

== ENCOUNTER → 2019-12-16 | Outpatient (CLI) | payer BC ==
--- NOTE | 2019-12-16 08:44 | Diagnostic Imaging Report ---
INDICATION: Low back pain AP and lateral views of the lumbar spine shows postoperative changes from vertebroplasty of L1. There is spondylosis deformans with anterior osteophytes forming at multiple levels. There are degenerative disc changes with disc space narrowing at L4-L5 and L5-S1. IMPRESSION: Degenerative disc changes L4-L5 and L5-S1 with vacuum disc phenomena. Spondylosis deformans. Old compression fracture L1. No acute abnormalities seen. Dictated by: Dictated on workstation # [id number]
== END ==
LOC: RAD 08:11
PROVIDERS: ATTEND Nurse Practitioner Family
DX: M54.5 Low back pain (principal); M51.37 Other intervertebral disc degeneration, lumbosacral region; M48.56XA Collapsed vertebra, not elsewhere classified, lumbar region, initial encounter for fracture; M47.816 Spondylosis without myelopathy or radiculopathy, lumbar region; Z98.890 Other specified postprocedural states
CPT/HCPCS: 72100

== ENCOUNTER 2020-04-16 13:28 | Outpatient (CLI) | payer BC ==
[~2020-04-16 13:28] MED LIST changes: +CLN.1T PO; -CLON0.1T PO
[2020-04-16] MEDS ORDERED: NS IV 1000 ML 1,000 ML ONE (13:33)
[2020-04-16] MEDS ORDERED: NS IV 1000 ML 1,000 ML IV SCH (13:45)
[2020-04-16 13:55] VITALS: BP 149/82
[2020-04-16 14:01] LABS: HEMOGLOBIN 13.8 g/dL (13.3-17.7); MEAN PLATELET VOLUME 9.7 fL (9.0-12.2); WHITE BLOOD COUNT 7.3 10^3/uL (4.3-11.0)
[2020-04-16 14:20] LABS: ALANINE AMINOTRANSFERASE 24 U/L (0-55); ALBUMIN 4.5 GM/DL (3.2-4.5); ALKALINE PHOSPHATASE 73 U/L (40-136); BILIRUBIN,TOTAL 1.2 MG/DL (0.1-1.0); BUN/CREATININE RATIO 14; CALCIUM 9.4 MG/DL (8.5-10.1); CARBON DIOXIDE 21 MMOL/L (21-32); CHLORIDE 99 MMOL/L (98-107); CREATININE SERUM 0.85 MG/DL (0.60-1.30); GFR ESTIMATED > 60; GLUCOSE 103 MG/DL (70-105); MAGNESIUM 2.3 MG/DL (1.6-2.4); PHOSPHORUS 3.5 MG/DL (2.3-4.7); POTASSIUM 4.2 MMOL/L (3.6-5.0); SODIUM 133 MMOL/L (135-145); TOTAL PROTEIN 7.2 GM/DL (6.4-8.2)
== END 2020-04-16 15:00 | disposition home or self-care (01) ==
LOC: SDC 13:28
PROVIDERS: ATTEND Nurse Practitioner Family
DX: E86.0 Dehydration (principal); E87.1 Hypo-osmolality and hyponatremia; E83.42 Hypomagnesemia
CPT/HCPCS: 36415; 80053; 83735; 84100; 85027; 96360

== ENCOUNTER → 2020-04-21 | Outpatient (CLI) | payer BC ==
[~2020-04-21] MED LIST changes: +NS IV 1000 ML 1,000 ML IV ONE; +NS IV 1000 ML 1,000 ML ONE
[2020-04-21 09:20] VITALS: BP 141/73
[2020-04-21 09:44] LABS: BUN/CREATININE RATIO 14; CALCIUM 9.5 MG/DL (8.5-10.1); CARBON DIOXIDE 24 MMOL/L (21-32); CHLORIDE 97 MMOL/L (98-107); CREATININE SERUM 0.91 MG/DL (0.60-1.30); GFR ESTIMATED > 60; GLUCOSE 115 MG/DL (70-105); POTASSIUM 4.1 MMOL/L (3.6-5.0); SODIUM 132 MMOL/L (135-145)
== END ==
LOC: SDC 09:11
PROVIDERS: ATTEND Nurse Practitioner Family
DX: E86.0 Dehydration (principal); E87.1 Hypo-osmolality and hyponatremia
CPT/HCPCS: 36415; 80048; 96360

== ENCOUNTER 2021-01-01 08:23 | Inpatient (IN) | payer MEDICARE, OTHER, MEDICAID ==
[~2021-01-01] VITALS: Ht 182 cm; Wt 88.4 kg
[~2021-01-01 08:23] MED LIST changes: -CIPR500T4; +CIPR500T5; -ESCI5TAB12; +ESCI5TAB16; -LISI40TA PO; +LISI40TA9 PO; -NS IV 1000 ML 1,000 ML IV ONE; -NS IV 1000 ML 1,000 ML ONE
[2021-01-01] MEDS ORDERED: LACTATED RINGERS 1,000 ML IV ONE (09:00)
[2021-01-01] MEDS ORDERED: ONDANSETRON 4 MG/2 ML (SDV) Z0FRAN IVP ONE (09:00)
[2021-01-01 09:06] LABS: BASOPHILS % (AUTO) 0 % (0-10); EOSINOPHILS % (AUTO) 0 % (0-10); HEMATOCRIT 44 % (40-54); HEMOGLOBIN 15.5 g/dL (13.3-17.7); LYMPHOCYTES # (AUTO) 1.3 10^3/uL (1.0-4.0); LYMPHOCYTES % (AUTO) 8 % (12-44); MEAN CORPUSCULAR HEMOGLOBIN 31 pg (25-34); MEAN CORPUSCULAR HGB CONC 35 g/dL (32-36); MEAN CORPUSCULAR VOLUME 88 fL (80-99); MEAN PLATELET VOLUME 10.3 fL (9.0-12.2); MONOCYTES # (AUTO) 1.4 10^3/uL (0.0-1.0); MONOCYTES % (AUTO) 8 % (0-12); NEUTROPHILS % (AUTO) 83 % (42-75); PLATELET COUNT 326 10^3/uL (130-400); WHITE BLOOD COUNT 16.8 10^3/uL (4.3-11.0)
--- NOTE | 2021-01-01 09:08 | ED GI ---
General Chief Complaint: Abdominal/GI Problems Stated Complaint: N/V/D Source of Information: Patient Exam Limitations: No Limitations History of Present Illness Date Seen by Provider: Jan 01, 2021 Time Seen by Provider: 08:43 Initial Comments Patient to the ER by private conveyance from home with chief complaint that since last night he was awoken having some diarrhea and then now some nausea and vomiting. He did take a tablet of Zofran which helped only for about 45 minutes with his nausea. Is not having any bloody stools just loose, watery. He was tested earlier in the week 5 days ago for Covid and it was negative. He has not been vaccinated yet. He does not smoke nor does have any lung disease cough chest pain shortness of air. He is having some left lower quad abdominal tenderness. He is had colonoscopy about 15 years ago revealing 2 polyps by GI in [place], [place]. He does have a history of diverticulosis. Historically he had a bowel perforation on gallbladder surgery. They had to go back in and do several surgeries to repair and put admission and then remove the mesh and repair his abdominal wall. He also had his appendix out and has plans to do a right inguinal hernia repair soon. No fevers or chills. No blood in the stool or emesis. He is a daily drinker but denies diabetes or pancreatitis. Pain is left lower quadrant, cramping, intermittent. Allergies and Home Medications Allergies Coded Allergies: levofloxacin (Unverified Allergy, Mild, LEG/ BONE PAIN, 11/26/18) Sulfa (Sulfonamide Antibiotics) (Verified Allergy, Unknown, 11/26/18) dextromethorphan (Verified Allergy, Unknown, 11/26/18) meperidine (Unverified Adverse Reaction, Unknown, 11/26/18) Home Medications Alprazolam 0.5 Mg Tablet, 0.5 MG PO BID, (Reported) Cholecalciferol (Vitamin D3) 1,000 Unit Capsule, 1,000 UNIT PO DAILY, (Reported) Clopidogrel Bisulfate 75 Mg Tablet, 75 MG PO DAILY Prescribed by: NELI MCBRIDE on 05/16/18 0846 Cyclobenzaprine HCl 10 Mg Tablet, 10 MG PO Q8H PRN for SPASMS Prescribed by: MABEL BIRMINGHAM on 06/05/19 0832 Diltiazem HCl 120 Mg Cap.er.24h, 120 MG PO HS, (Reported) Famotidine 20 Mg Tablet, 20 MG PO DAILY, (Reported) Hydrocodone Bit/Acetaminophen 1 Tab Tab, 1 EACH PO Q4-6HR PRN for PAIN-MODERATE Prescribed by: MABEL BIRMINGHAM on 06/05/19 0832 Losartan Potassium 100 Mg Tablet, 100 MG PO DAILY, (Reported) Meclizine HCl 25 Mg Tablet, 0.5 TAB PO TID PRN for DIZZINESS Prescribed by: MAGNO FOLEY on 08/22/18 1920 Pantoprazole Sodium 40 Mg Tablet.dr, 40 MG PO DAILY Prescribed by: SHANE STAHL on 11/30/18 1036 Patient Home Medication List Home Medication List Reviewed: Yes Review of Systems Review of Systems Constitutional: No chills, No diaphoresis EENTM: No Blurred Vision, No Double Vision Respiratory: Denies Cough, Denies Shortness of Air Cardiovascular: Denies Chest Pain, Denies Edema Gastrointestinal: See HPI, Abdominal Pain; Denies Constipated; Diarrhea, Nausea, Vomiting Genitourinary: Denies Burning, Denies Discharge Musculoskeletal: No back pain, No joint pain Skin: No pruritus, No rash Psychiatric/Neurological: Denies Headache, Denies Numbness All Other Systems Reviewed Negative Unless Noted: Yes Past Lwnuowl-Tcazcu-Xewuup Hx Patient Social History Tobacco Use?: No Use of E-Cig and/or Vaping dev: No Substance use?: No Alcohol Use?: Yes Alcohol type: Beer Alcohol Frequency: Couple times a week Pt feels they are or have been: No Seasonal Allergies Seasonal Allergies: No Past Medical History Surgery/Hospitalization HX: multiple abdominal surgeries Surgeries: Yes (BACK, HERNIAS, FACE LACERATION, ) Abdominal, Appendectomy, Section, Coronary Stent, Gallbladder, Orthopedic Respiratory: No Cardiac: Yes (STENT X2) Coronary Artery Disease, High Cholesterol, Hypertension, Irregular Heartbeat, Palpitations Neurological: No Reproductive Disorders: No Sexually Transmitted Disease: No HIV/AIDS: No Genitourinary: No Gastrointestinal: Yes Gastroesophageal Reflux, Diverticulosis Musculoskeletal: Yes (BACK SURGERY; L1 COMPRESSION FX WITH KYPHOPLASTY 01/2015, ) Chronic Back Pain Endocrine: No HEENT: Yes (READING GLASSES) Loss of Vision: Denies Hearing Impairment: Hard of Hearing Cancer: No Psychosocial: Yes Anxiety Integumentary: No Blood Disorders: Yes (tularemia) Adverse Reaction/Blood Tranf: No Family Medical History No Pertinent Family Hx Physical Exam Vital Signs Vital Signs - First Documented 01/01/21 08:46 Temp 36.7 Pulse 73 Resp 14 B/P (MAP) 209/104 (139) Pulse Ox 98 O2 Delivery Room Air Capillary Refill : Height/Weight/BMI Height: 6'0.00" Weight: 190lbs. 0.0oz. 86.495318lh; 26.00 BMI Method:Stated General Appearance: WD/WN, mild distress HEENT: PERRL/EOMI, pharynx normal Neck: full range of motion, normal inspection Respiratory: lungs clear, normal breath sounds, no respiratory distress, no accessory muscle use Gastrointestinal: normal bowel sounds, soft, no organomegaly, tenderness (Left lower quadrant abdomen tender to palpation. mild distention) Extremities: normal range of motion, non-tender, normal capillary refill Neurologic/Psychiatric: alert, oriented x 3 Skin: normal color, warm/dry Progress/Results/Core Measures Results/Orders Lab Results Laboratory Tests Test 01/01/21 08:55 01/01/21 09:05 Range/Units White Blood Count 16.8 H 4.3-11.0 10^3/uL Red Blood Count 5.00 4.30-5.52 10^6/uL Hemoglobin 15.5 13.3-17.7 g/dL Hematocrit 44 40-54 % Mean Corpuscular Volume 88 80-99 fL Mean Corpuscular Hemoglobin 31 25-34 pg Mean Corpuscular Hemoglobin Concent 35 32-36 g/dL Red Cell Distribution Width 13.2 10.0-14.5 % Platelet Count 326 130-400 10^3/uL Mean Platelet Volume 10.3 9.0-12.2 fL Immature Granulocyte % (Auto) 1 % Neutrophils (%) (Auto) 83 H 42-75 % Lymphocytes (%) (Auto) 8 L 12-44 % Monocytes (%) (Auto) 8 0-12 % Eosinophils (%) (Auto) 0 0-10 % Basophils (%) (Auto) 0 0-10 % Neutrophils # (Auto) 14.0 H 1.8-7.8 10^3/uL Lymphocytes # (Auto) 1.3 1.0-4.0 10^3/uL Monocytes # (Auto) 1.4 H 0.0-1.0 10^3/uL Eosinophils # (Auto) 0.0 0.0-0.3 10^3/uL Basophils # (Auto) 0.0 0.0-0.1 10^3/uL Immature Granulocyte # (Auto) 0.1 0.0-0.1 10^3/uL Neutrophils % (Manual) 87 % Lymphocytes % (Manual) 4 % Monocytes % (Manual) 8 % Eosinophils % (Manual) 1 % Blood Morphology Comment NORMAL Sodium Level 139 135-145 MMOL/L Potassium Level 4.0 3.6-5.0 MMOL/L Chloride Level 104 98-107 MMOL/L Carbon Dioxide Level 23 21-32 MMOL/L Anion Gap 12 5-14 MMOL/L Blood Urea Nitrogen 17 7-18 MG/DL Creatinine 0.77 0.60-1.30 MG/DL Estimat Glomerular Filtration Rate 101 BUN/Creatinine Ratio 22 Glucose Level 133 H 70-105 MG/DL Calcium Level 9.9 8.5-10.1 MG/DL Corrected Calcium 9.5 8.5-10.1 MG/DL Total Bilirubin 1.1 H 0.1-1.0 MG/DL Aspartate Amino Transf (AST/SGOT) 16 5-34 U/L Alanine Aminotransferase (ALT/SGPT) 21 0-55 U/L Alkaline Phosphatase 75 40-136 U/L C-Reactive Protein High Sensitivity 0.10 0.00-0.50 MG/DL Total Protein 7.6 6.4-8.2 GM/DL Albumin 4.5 3.2-4.5 GM/DL Lipase 18 8-78 U/L Influenza Type A (RT-PCR) Not Detected Not Detecte Influenza Type B (RT-PCR) Not Detected Not Detecte SARS-CoV-2 RNA (RT-PCR) Not Detected Not Detecte Urine Color YELLOW Urine Clarity CLEAR Urine pH 7.0 5-9 Urine Specific [place] 1.020 1.016-1.022 Urine Protein NEGATIVE NEGATIVE Urine Glucose (UA) NEGATIVE NEGATIVE Urine Ketones NEGATIVE NEGATIVE Urine Nitrite NEGATIVE NEGATIVE Urine Bilirubin NEGATIVE NEGATIVE Urine Urobilinogen 0.2 < = 1.0 MG/DL Urine Leukocyte Esterase NEGATIVE NEGATIVE Urine RBC (Auto) NEGATIVE NEGATIVE Urine RBC NONE /HPF Urine WBC RARE /HPF Urine Squamous Epithelial Cells 0-2 /HPF Urine Crystals NONE /LPF Urine Bacteria NEGATIVE /HPF Urine Casts NONE /LPF Urine Mucus NEGATIVE /LPF Urine Culture Indicated NO My Orders Orders - VALENCIA,MABEL J Ondansetron Injection (Zofran Injectio (01/01/21 09:00) Lactated Ringers (Lr 1000 Ml Iv Solution (01/01/21 09:00) Cbc With Automated Diff (01/01/21 08:58) Comprehensive Metabolic Panel (01/01/21 08:58) Hs C Reactive Protein (01/01/21 08:58) Lipase (01/01/21 08:58) Ct Abdomen/Pelvis W (01/01/21 08:58) Covid 19 Inhouse Test (01/01/21 08:58) Influenza A And B By Pcr (01/01/21 08:58) Ua Culture If Indicated (01/01/21 08:58) Ed Iv/Invasive Line Start (01/01/21 09:02) Manual Differential (01/01/21 08:55) Promethazine Injection (Phenergan Injec (01/01/21 10:00) Labetalol Injection (Normodyne Injection (01/01/21 10:15) Hydralazine Injection (Apresoline Inject (01/01/21 10:15) Iohexol Injection (Omnipaque 350 Mg/Ml 1 (01/01/21 10:45) Received Contrast (Hold Metformin- Contr (01/01/21 10:45) Ns (Ivpb) (Sodium Chloride 0.9% Ivpb Bag (01/01/21 10:45) Sodium Chloride Flush (Catheter Flush Sy (01/01/21 10:45) Diphenhydramine Injection (Benadryl Inje (01/01/21 11:15) Ng Tube Insert & Assessment (01/01/21 13:37) Medications Given in ED Current Medications Medications Dose Ordered Sig/Ankita Route Start Time Stop Time Status Last Admin Dose Admin Diphenhydramine HCl 25 mg ONCE ONCE IVP 01/01/21 11:15 01/01/21 11:16 DC 01/01/21 11:21 25 MG Hydralazine HCl 10 mg ONCE ONCE IV 01/01/21 10:15 01/01/21 10:16 DC 01/01/21 10:13 10 MG Lactated Ringer's 1,000 ml @ 0 mls/hr Q0M ONCE IV 01/01/21 09:00 01/01/21 09:01 DC 01/01/21 09:17 1,000 MLS/HR Ondansetron HCl 8 mg ONCE ONCE IVP 01/01/21 09:00 01/01/21 09:01 DC 01/01/21 09:16 8 MG Promethazine HCl 25 mg ONCE ONCE IVP 01/01/21 10:00 01/01/21 10:01 DC 01/01/21 10:07 25 MG Vital Signs/I&O 01/01/21 08:46 Temp 36.7 Pulse 73 Resp 14 B/P (MAP) 209/104 (139) Pulse Ox 98 O2 Delivery Room Air Progress Progress Note #1: Time: 09:07 Progress Note With his extensive history of abdominal surgeries we have concern for diverticulitis, less likely a internal herniation, bowel obstruction etc. Plan to get a CT scan of his abdomen pelvis after a negative Covid screen comes back. We will get some basic labs and give him some Zofran. Liter of fluids. The patient has declined anything for pain at this time. He has aseptic vital signs. He reports having taken his blood pressure medicine this morning. His blood pressure has already came down 10% just in the short amount of time since the provider has left the room. Progress Note #2: Time: 10:09 Progress Note Patient's nausea did not improve so we will give him some Phenergan. His blood pressure went back up to 210/108 so we will give him a dose of hydralazine. Heart rate 61. Diagnostic Imaging Diagonstic Imaging: CT Plain Films/CT/US/NM/MRI: abdomen, pelvis Comments [facility], [place] NAME: CHELSI FORDE [employer] REC#: [id number] PT STATUS: REG ER : 1955 PHYSICIAN: MABEL BIRMINGHAM MD ADMIT DATE: 01/01/21/ER Signed Date of Exam:01/01/21 CT ABDOMEN/PELVIS W PROCEDURE: CT abdomen and pelvis with contrast. TECHNIQUE: Multiple contiguous axial images were obtained through the abdomen and pelvis after administration of intravenous contrast. Auto Exposure Controls were utilized during the CT exam to meet ALARA standards for radiation dose reduction. All CT scans use one or more of the following dose optimizing techniques: automated exposure control, MA and/or KvP adjustment based on patient size and exam type or iterative reconstruction. INDICATION: Nausea, vomiting and diarrhea. The gallbladder surgically absent. The liver and bile ducts unremarkable. Spleen is unremarkable. The adrenals are negative. The pancreas nonfocal and nonacute. There is duodenal diverticuli present and the stomach is mildly distended with ingested material. There is mild small bowel dilatation diffusely with scattered air-fluid levels. The distal and terminal ileum decompresses transition in the right hemiabdomen near the level of the umbilicus without underlying mass effect. Findings suggest at least partial small bowel obstruction. I am unable to identify the appendix but I also cannot see that structure on the comparison study of 09/06/2016. Scattered colonic diverticuli without focal diverticulitis. A left fatty inguinal hernia chronic on the right. Disc herniation of mesenteric fat and nondilated bowel extending into the upper scrotal sac. No inflammatory changes within that hernia sac. Kidneys unobstructed. Atherosclerotic aorta is nonaneurysmal and patent. No vascular thrombus. The urinary bladder distended. Prostate unremarkable. IMPRESSION: Findings of distal small bowel obstruction, etiology not defined. There is a viscus hernia in the right groin but this did not appear to be reflect a transition zone and showed no inflammatory changes within the sac. No acute hepatobiliary or urinary tract pathology. No free air or abscess. There is chronic extensive colonic and sigmoid diverticulosis without features of diverticulitis. Dictated by: Dictated on workstation # [id number] Dict: 01/01/21 1136 Trans: 01/01/21 1158 [facility] [id number] Interpreted by: NESHA TAYLOR Electronically signed by: NESHA TAYLOR 01/01/21 1158 Reviewed: Reviewed by Ia Departure Communication (Admissions) Time/Spoke to Admitting Phy: 13:[address] Peng and he agrees to admit the patient with consultation to general surgery. Time/Spoke to Consulting Phy: 13:45 Discussed the case with Dr. Manriquez and he agrees to consult on the patient. Small bowel follow-through in the morning. Impression Primary Impression: Small bowel obstruction Disposition: ADMITTED INPATIENT Condition: Stable Admissions Decision to Admit Reason: Admit from ER (General) Decision to Admit/Date: Jan 01, 2021 Time/Decision to Admit Time: 13:31 Departure-Patient Inst. Referrals: ISIDORO KEITH APRN (PCP/Family) Primary Care Physician MABEL BIRMINGHAM Jan 01, 2021 09:08
[2021-01-01 09:16] LABS: BILIRUBIN,URINE NEGATIVE (NEGATIVE); CLARITY,URINE CLEAR; COLOR,URINE YELLOW; GLUCOSE, URINE (UA) NEGATIVE (NEGATIVE); KETONES,URINE NEGATIVE (NEGATIVE); LEUKOCYTE ESTERASE ,URINE NEGATIVE (NEGATIVE); NITRITE,URINE NEGATIVE (NEGATIVE); PROTEIN,URINE NEGATIVE (NEGATIVE)
[2021-01-01 09:21] LABS: ALBUMIN 4.5 GM/DL (3.2-4.5)
[2021-01-01 09:22] LABS: CALCIUM 9.9 MG/DL (8.5-10.1)
[2021-01-01 09:24] LABS: TOTAL PROTEIN 7.6 GM/DL (6.4-8.2)
[2021-01-01 09:24] LABS: BACTERIA,URINE NEGATIVE /HPF; WBC,URINE RARE /HPF
[2021-01-01 09:25] LABS: BILIRUBIN,TOTAL 1.1 MG/DL (0.1-1.0)
[2021-01-01 09:25] LABS: SQUAMOUS EPITHELIAL CELL,UR 0-2 /HPF
[2021-01-01 09:27] LABS: CREATININE SERUM 0.77 MG/DL (0.60-1.30)
[2021-01-01 09:43] LABS: EOSINOPHILS % (MANUAL) 1 %; LYMPHOCYTES % (MANUAL) 4 %; MONOCYTES % (MANUAL) 8 %; NEUTROPHILS % (MANUAL) 87 %; RBC MORPH NORMAL
[2021-01-01] MEDS ORDERED: PROMETHAZINE INJ 25 MG/ML (PHENERGAN) AMP IVP ONE (10:00)
[2021-01-01] MEDS ORDERED: hydrALAZINE (APESOLINE) 20 MG/ML VIAL IV ONE (10:15)
[2021-01-01] MEDS ORDERED: LABETALOL HCL 20 MG/4 ML VIAL IV ONE (10:15)
[2021-01-01] MEDS ORDERED: IOHEXOL 350 MG/ML 100 ML (OMNIPAQUE 350) VIAL IV ONE (10:45)
[2021-01-01] MEDS ORDERED: CATHETER FLUSH 10 ML SYR IV PRN ×2 (10:45→16:00)
[2021-01-01] MEDS ORDERED: NS 100 ML (IVPB) BAG IV ONE (10:45)
[2021-01-01] MEDS ORDERED: HOLD METFORMIN - RECEIVED CONTRAST 20 ML VIAL IV SCH (10:45)
[2021-01-01] MEDS ORDERED: diphenhydrAMINE 50 MG/ML INJ (BENADRYL) IVP ONE (11:15)
--- NOTE | 2021-01-01 11:56 | Diagnostic Imaging Report ---
PROCEDURE: CT abdomen and pelvis with contrast. TECHNIQUE: Multiple contiguous axial images were obtained through the abdomen and pelvis after administration of intravenous contrast. Auto Exposure Controls were utilized during the CT exam to meet ALARA standards for radiation dose reduction. All CT scans use one or more of the following dose optimizing techniques: automated exposure control, MA and/or KvP adjustment based on patient size and exam type or iterative reconstruction. INDICATION: Nausea, vomiting and diarrhea. The gallbladder surgically absent. The liver and bile ducts unremarkable. Spleen is unremarkable. The adrenals are negative. The pancreas nonfocal and nonacute. There is duodenal diverticuli present and the stomach is mildly distended with ingested material. There is mild small bowel dilatation diffusely with scattered air-fluid levels. The distal and terminal ileum decompresses transition in the right hemiabdomen near the level of the umbilicus without underlying mass effect. Findings suggest at least partial small bowel obstruction. I am unable to identify the appendix but I also cannot see that structure on the comparison study of 09/06/2016. Scattered colonic diverticuli without focal diverticulitis. A left fatty inguinal hernia chronic on the right. Disc herniation of mesenteric fat and nondilated bowel extending into the upper scrotal sac. No inflammatory changes within that hernia sac. Kidneys unobstructed. Atherosclerotic aorta is nonaneurysmal and patent. No vascular thrombus. The urinary bladder distended. Prostate unremarkable. IMPRESSION: Findings of distal small bowel obstruction, etiology not defined. There is a viscus hernia in the right groin but this did not appear to be reflect a transition zone and showed no inflammatory changes within the sac. No acute hepatobiliary or urinary tract pathology. No free air or abscess. There is chronic extensive colonic and sigmoid diverticulosis without features of diverticulitis. Dictated by: Dictated on workstation # [id number]
[2021-01-01] MEDS ORDERED: HURRICAINE EXT TUBE (BENZOCAINE) ONE (14:58)
--- NOTE | 2021-01-01 15:36 | Consultation - Surgery ---
History of Present Illness History of Present Illness Patient Consulted On(alice/time) 01/01/21 15:36 Date Seen by Provider: Jan 01, 2021 Time Seen by Provider: 15:36 History of Present Illness Consult requested by Dr. Peng for SBO. Patient is a 65 year old male who woke up last night with nausea and vomiting. His abdomen was distended. Having moderated pain/discomfort, more in left lower quadrant. Has not really passed any gas or bm today. Had some diarrhea yesterday. Has b/l inguinal hernia, that are unchanged and he is able to reduce he states when laying down. He is planning on having them fixed shortly with surgeon at another facility. Patient states nothing making better or worse. Had ct scan demonstrating findings suggestive of sbo, b/l inguinal hernia but do not see transition point. Allergies and Home Medications Allergies Coded Allergies: levofloxacin (Unverified Allergy, Mild, LEG/ BONE PAIN, 11/26/18) Sulfa (Sulfonamide Antibiotics) (Verified Allergy, Unknown, 11/26/18) dextromethorphan (Verified Allergy, Unknown, 11/26/18) meperidine (Unverified Adverse Reaction, Unknown, 11/26/18) Home Medications Alprazolam 0.5 Mg Tablet, 0.5 MG PO BID, (Reported) Cholecalciferol (Vitamin D3) 1,000 Unit Capsule, 1,000 UNIT PO DAILY, (Reported) Clopidogrel Bisulfate 75 Mg Tablet, 75 MG PO DAILY Prescribed by: NELI MCBRIDE on 05/16/18 0846 Cyclobenzaprine HCl 10 Mg Tablet, 10 MG PO Q8H PRN for SPASMS Prescribed by: MAEBL BIRMINGHAM on 06/05/19 0832 Diltiazem HCl 120 Mg Cap.er.24h, 120 MG PO HS, (Reported) Famotidine 20 Mg Tablet, 20 MG PO DAILY, (Reported) Hydrocodone Bit/Acetaminophen 1 Tab Tab, 1 EACH PO Q4-6HR PRN for PAIN-MODERATE Prescribed by: MABEL BIRMINGHAM on 06/05/19 0832 Losartan Potassium 100 Mg Tablet, 100 MG PO DAILY, (Reported) Meclizine HCl 25 Mg Tablet, 0.5 TAB PO TID PRN for DIZZINESS Prescribed by: MAGNO FOLEY on 08/22/18 192 Pantoprazole Sodium 40 Mg Tablet.dr, 40 MG PO DAILY Prescribed by: SHANE STAHL on 11/30/18 1036 Patient Home Medication List Home Medication List Reviewed: Yes Past Obuvsfy-Ykciyz-Jofjra Hx Patient Social History Former Smoker, Quit: May 15, 2006 Type Used: Cigarettes 2nd Hand Smoke Exposure: No Recent Hopitalizations: No Alcohol Use?: Yes Have you traveled recently?: No Seasonal Allergies Seasonal Allergies: No Surgeries History of Surgeries: Yes (BACK, HERNIAS, FACE LACERATION, ) Surgeries: Abdominal, Appendectomy, Coronary Stent, Gallbladder, Orthopedic Respiratory History of Respiratory Disorde: No Cardiovascular History of Cardiac Disorders: Yes (STENT X2) Cardiac Disorders: Coronary Artery Disease, High Cholesterol, Hypertension, Irregular Heartbeat, Palpitations Neurological History of Neurological Disord: No Reproductive System Hx Reproductive Disorders: No Sexually Transmitted Disease: No HIV/AIDS: No Genitourinary History of Genitourinary Disor: No Gastrointestinal History of Gastrointestinal Di: Yes Gastrointestinal Disorders: Gastroesophageal Reflux, Diverticulosis Musculoskeletal History of Musculoskeletal Dis: Yes (BACK SURGERY; L1 COMPRESSION FX WITH KYPHOPLASTY 01/2015, ) Musculoskeletal Disorders: Chronic Back Pain Endocrine History of Endocrine Disorders: No HEENT History of HEENT Disorders: Yes (READING GLASSES) Loss of Vision: Denies Hearing Impairment: Hard of Hearing Cancer History of Cancer: No Psychosocial History of Psychiatric Problem: Yes Behavioral Health Disorders: Anxiety Integumentary History of Skin or Integumenta: No Blood Transfusions History of Blood Disorders: Yes (tularemia) Adverse Reaction to a Blood Tr: No Reviewed Nursing Assessment Reviewed/Agree w Nursing PMH: Yes Family Medical History Significant Family History: No Pertinent Family Hx Review of Systems-General Constitutional: No chills, No diaphoresis, No fever, No weakness EENTM: No blurred vision, No double vision Respiratory: No dyspnea on exertion, No short of breath Cardiovascular: No chest pain, No palpitations Gastrointestinal: RLQ, LLQ, abdominal pain (RLQ), nausea, vomiting Genitourinary: No decreased output, No discharge Musculoskeletal: No back pain, No joint pain Skin: No change in color, No change in hair/nails Psychiatric/Neurological: Denies Anxiety, Denies Depressed, Denies Emotional Problems All Other Systems Reviewed Negative Unless Noted: Yes (Negative excepted noted.) Physical Exam-General Problems Physical Exam Vital Signs Vital Signs - First Documented 01/01/21 08:46 Temp 36.7 Pulse 73 Resp 14 B/P (MAP) 209/104 (139) Pulse Ox 98 O2 Delivery Room Air Capillary Refill : Less Than 3 Seconds General Appearance: WD/WN, no apparent distress HEENT: PERRL/EOMI, normal ENT inspection Neck: non-tender, full range of motion, supple Respiratory: chest non-tender, no respiratory distress, no accessory muscle use Cardiovascular: no JVD, irregularly irregular Gastrointestinal: distended, tenderness (mid to lower abdomen), hernia (b/l able to be reduced) Rectal: deferred Back: normal inspection, no CVA tenderness Extremities: normal range of motion, non-tender 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, no motor/sensory deficits, alert, normal mood/affect, oriented x 3 Skin: normal color, warm/dry Lymphatic: no adenopathy Data Review Labs Laboratory Tests 01/01/21 08:55: White Blood Count 16.8H, Red Blood Count 5.00, Hemoglobin 15.5, Hematocrit 44, Mean Corpuscular Volume 88, Mean Corpuscular Hemoglobin 31, Mean Corpuscular Hemoglobin Concent 35, Red Cell Distribution Width 13.2, Platelet Count 326, Mean Platelet Volume 10.3, Immature Granulocyte % (Auto) 1, Neutrophils (%) (Auto) 83H, Lymphocytes (%) (Auto) 8L, Monocytes (%) (Auto) 8, Eosinophils (%) (Auto) 0, Basophils (%) (Auto) 0, Neutrophils # (Auto) 14.0H, Lymphocytes # (Auto) 1.3, Monocytes # (Auto) 1.4H, Eosinophils # (Auto) 0.0, Basophils # (Auto) 0.0, Immature Granulocyte # (Auto) 0.1, Neutrophils % (Manual) 87, Lymphocytes % (Manual) 4, Monocytes % (Manual) 8, Eosinophils % (Manual) 1, Blood Morphology Comment NORMAL, Sodium Level 139, Potassium Level 4.0, Chloride Level 104, Carbon Dioxide Level 23, Anion Gap 12, Blood Urea Nitrogen 17, Creatinine 0.77, Estimat Glomerular Filtration Rate 101, BUN/Creatinine Ratio 22, Glucose Level 133H, Calcium Level 9.9, Corrected Calcium 9.5, Total Bilirubin 1.1H, Aspartate Amino Transf (AST/SGOT) 16, Alanine Aminotransferase ( ALT/SGPT) 21, Alkaline Phosphatase 75, C-Reactive Protein High Sensitivity 0.10, Total Protein 7.6, Albumin 4.5, Lipase 18, Influenza Type A (RT-PCR) Not Detected, Influenza Type B (RT-PCR) Not Detected, SARS-CoV-2 RNA (RT-PCR) Not Detected 01/01/21 09:05: Urine Color YELLOW, Urine Clarity CLEAR, Urine pH 7.0, Urine Specific Rowley 1.020, Urine Protein NEGATIVE, Urine Glucose (UA) NEGATIVE, Urine Ketones NEGATIVE, Urine Nitrite NEGATIVE, Urine Bilirubin NEGATIVE, Urine Urobilinogen 0.2, Urine Leukocyte Esterase NEGATIVE, Urine RBC (Auto) NEGATIVE, Urine RBC NONE, Urine WBC RARE, Urine Squamous Epithelial Cells 0-2, Urine Crystals NONE, Urine Bacteria NEGATIVE, Urine Casts NONE, Urine Mucus NEGATIVE, Urine Culture Indicated NO Assessment/Plan Assessment/Plan Assessment/Plan nausea vomiting small bowel obstruction at least partial abdominal distention abdominal pain llq b/l inguinal hernia patient with findings suggestive of small bowel obstruction npo iv hydration small bowel follow through in am ng tube to be placed for decompression hernias reduce and do not appear to be cause of obstruction patient discussed conservative measures, and understands may need surgical intervention if conservative measures down work. at bedside and agrees with plan as well. RHONA PERSON DO Jan 01, 2021 15:36
[2021-01-01] MEDS ORDERED: diphenhydrAMINE 50 MG/ML INJ (BENADRYL) IV PRN (15:45)
[2021-01-01] MEDS ORDERED: ONDANSETRON 4 MG/2 ML (SDV) Z0FRAN IV PRN (15:45)
[2021-01-01] MEDS ORDERED: PROMETHAZINE INJ 25 MG/ML (PHENERGAN) AMP IV PRN (15:45)
[2021-01-01 16:04] VITALS: BP 201/100
[2021-01-01] MEDS ORDERED: hydrALAZINE (APESOLINE) 20 MG/ML VIAL IV PRN (16:45)
[2021-01-01] MEDS ORDERED: DIATRIZOATE MEGLUM/SODIUM 37% 120 ML (GASTROGRAFIN) NG ONE (19:15)
[2021-01-01 20:19] VITALS: BP 160/86
[2021-01-01 20:21] VITALS: BP 160/86
[2021-01-01] MEDS: PANTOPRAZOLE 40 MG (PROTONIX) VIAL IV SCH (20:21)
[2021-01-01] MEDS: LACTATED RINGERS 1,000 ML IV SCH (20:21)
[2021-01-01] MEDS: ENOXAPARIN 40 MG/0.4 ML (LOVENOX) SYR SC SCH (20:21)
--- NOTE | 2021-01-01 20:44 | Diagnostic Imaging Report ---
Exam: Fluoroscopic small bowel follow-through. Date: January 01, 2021. Indication: 65-year-old male, abdominal pain. Comparison: CT abdomen and pelvis January 01, 2021. Findings: There is contrast in the urinary bladder likely relating to prior intravenous contrast administration. There are kyphoplasty changes of the upper lumbar spine. There are contrast filled segments of small bowel measuring up to 4.0 cm in diameter. There is extension of contrast into the colon by 2.5 hours. Impression: 1. Abnormally dilated segments of small bowel most consistent with a low-grade small bowel obstruction correlating with prior CT abdomen and pelvis exam. There is contrast extension into the colon by 2.5 hours. Dictated by: Dictated on workstation # [id number]
[2021-01-02] VITALS (7 sets, daily range): BP systolic 136–166; BP diastolic 67–86
[2021-01-02] MEDS: LACTATED RINGERS 1,000 ML IV SCH ×5 (00:05→21:17)
[2021-01-02 06:11] LABS: BASOPHILS % (AUTO) 0 % (0-10); EOSINOPHILS # (AUTO) 0.2 10^3/uL (0.0-0.3); EOSINOPHILS % (AUTO) 1 % (0-10); HEMATOCRIT 41 % (40-54); HEMOGLOBIN 14.3 g/dL (13.3-17.7); LYMPHOCYTES # (AUTO) 1.4 10^3/uL (1.0-4.0); LYMPHOCYTES % (AUTO) 12 % (12-44); MEAN CORPUSCULAR HEMOGLOBIN 31 pg (25-34); MEAN CORPUSCULAR HGB CONC 35 g/dL (32-36); MEAN CORPUSCULAR VOLUME 88 fL (80-99); MEAN PLATELET VOLUME 10.5 fL (9.0-12.2); MONOCYTES # (AUTO) 1.3 10^3/uL (0.0-1.0); MONOCYTES % (AUTO) 11 % (0-12); NEUTROPHILS # (AUTO) 9.1 10^3/uL (1.8-7.8); NEUTROPHILS % (AUTO) 75 % (42-75); PLATELET COUNT 289 10^3/uL (130-400); WHITE BLOOD COUNT 12.1 10^3/uL (4.3-11.0)
[2021-01-02 06:26] LABS: POTASSIUM 3.9 MMOL/L (3.6-5.0)
[2021-01-02 06:27] LABS: CALCIUM 9.1 MG/DL (8.5-10.1)
[2021-01-02 06:31] LABS: CREATININE SERUM 0.79 MG/DL (0.60-1.30)
[2021-01-02] MEDS ORDERED: DILT180C82 PO (08:49)
[2021-01-02] MEDS ORDERED: LORA-877 PO (08:50)
[2021-01-02] MEDS ORDERED: ASPI-999 PO (08:50)
[2021-01-02] MEDS ORDERED: FAMO10TA43 PO (08:51)
[2021-01-02] MEDS ORDERED: ASCO500C17 PO (08:53)
[2021-01-02] MEDS: PANTOPRAZOLE 40 MG (PROTONIX) VIAL IV SCH (08:54)
[2021-01-02] MEDS ORDERED: PANTOPRAZOLE 40 MG (PROTONIX) VIAL IV SCH (09:00)
--- NOTE | 2021-01-02 09:10 | History & Physical-Hospitalist ---
History of Present Illness HPI/Chief Complaint Andres Story is a 65-year-old male with past medical history of hypertension, GERD, anxiety, history of multiple abdominal surgeries, who presented with abdominal pain. He reports that his abdomen had been distended. He had pain in the lower parts of his abdomen. He was also having nausea and vomiting. He had some watery diarrhea. He denies any fevers or chills. He denies any chest pain or palpitations. He denies any shortness of breath or cough. He is passing gas. He has had several bowel movements overnight. Source: patient Exam Limitations: no limitations Date Seen 01/02/21 Time Seen by a Provider: 07:25 Attending Physician Tiffanie Rodriguez MD PCP Jana Baker Aprn Referring Physician Date of Admission Jan 01, 2021 at 14:00 Home Medications & Allergies Home Medications Reviewed patient Home Medication Reconciliation performed by pharmacy medication reconciliations radiocommunications technician and/or nursing. Patients Allergies have been reviewed. Allergies Allergies Coded Allergies levofloxacin (Unverified Allergy, Mild, LEG/ BONE PAIN, 11/26/18) Sulfa (Sulfonamide Antibiotics) (Verified Allergy, Unknown, 11/26/18) dextromethorphan (Verified Allergy, Unknown, 11/26/18) meperidine (Unverified Adverse Reaction, Unknown, 11/26/18) Past Agcwoiu-Fxesyv-Lzwwpp Hx Patient Social History Tobacco Use?: No Use of E-Cig and/or Vaping dev: No Substance use?: No Alcohol Use?: Yes Alcohol type: Beer Alcohol Frequency: Once in a while Pt feels they are or have been: No Immunizations Up To Date Hepatitis A: No Hepatitis B: No Seasonal Allergies Seasonal Allergies: No Current Status Advance Directives: No Communicates: Verbally Primary Language: Kyrgyz Preferred Spoken Language: Kyrgyz Is interpretation needed?: No Implanted or Applied Medical D: None Past Medical History Surgeries: Abdominal, Appendectomy, Coronary Stent, Gallbladder, Orthopedic Coronary Artery Disease, High Cholesterol, Hypertension, Irregular Heartbeat, Palpitations Sexually Transmitted Disease: No HIV/AIDS: No Gastroesophageal Reflux, Diverticulosis Chronic Back Pain Loss of Vision: Denies Hearing Impairment: Hard of Hearing Anxiety Blood Disorders: Yes (tularemia) Adverse Reaction/Blood Tranf: No Family Medical History No Pertinent Family Hx Review of Systems Constitutional: no symptoms reported Respiratory: no symptoms reported Cardiovascular: no symptoms reported Gastrointestinal: abdominal pain, diarrhea, nausea, vomiting Genitourinary: no symptoms reported Musculoskeletal: no symptoms reported Skin: no symptoms reported Psychiatric/Neurological: No Symptoms Reported Physical Exam Physical Exam Vital Signs Vital Signs - First Documented 01/01/21 08:46 Temp 36.7 Pulse 73 Resp 14 B/P (MAP) 209/104 (139) Pulse Ox 98 O2 Delivery Room Air Capillary Refill : Less Than 3 Seconds Height, Weight, BMI Height: 6'0.00" Weight: 190lbs. 0.0oz. [id number]; 26.68 BMI Method:Stated General Appearance: No Apparent Distress, WD/WN HEENT: PERRL/EOMI, Pharynx Normal Neck: Normal Inspection, Supple Respiratory: Lungs Clear, Normal Breath Sounds, No Respiratory Distress Cardiovascular: Regular Rate, Rhythm, No Edema, No Murmur Gastrointestinal: Non Tender, Soft, Abnormal Bowel Sounds (Hypoactive); No Distended, No Guarding Extremity: Normal Inspection, Non Tender, No Pedal Edema Neurologic/Psychiatric: Alert, Oriented x3, No Motor/Sensory Deficits, 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 Skin: Normal Color, Warm/Dry Lymphatic: No Adenopathy Results Results/Procedures Labs Laboratory Tests 01/01/21 08:55 01/02/21 05:45 Patient resulted labs reviewed. Imaging: Reviewed Imaging Report Assessment/Plan Admission Diagnosis Small bowel obstruction Admission Status: Inpatient Order (span 2 midnights) Reason for Inpatient Admission: Bowel obstruction requiring monitoring, treatment, and possible surgical intervention Assessment and Plan Small bowel obstruction History of multiple abdominal surgeries History of cholecystectomy History of appendectomy History of abdominal wall dehiscence s/p surgical repair CT showed partial small bowel obstruction Small bowel follow through consistent with partial obstruction NPO IV fluids Unable to tolerate NG placement Surgery following, appreciate assistance Symptoms improving Consider clear liquids today Encouraged ambulation HTN CAD GERD Continue home meds when diet advanced DVT prophylaxis: Lovenox Diagnosis/Problems Diagnosis/Problems (1) Small bowel obstruction Status: Acute (2) History of abdominal surgery Status: Chronic (3) History of cholecystectomy Status: Chronic (4) History of appendectomy Status: Chronic (5) Abdominal wall dehiscence Status: Chronic Qualifiers: Encounter type: sequela Qualified Codes: T81.30XS - Disruption of wound, unspecified, sequela (6) HTN (hypertension) Status: Chronic Qualifiers: Hypertension type: essential hypertension Qualified Codes: I10 - Essential (primary) hypertension (7) CAD (coronary artery disease), [place] coronary artery Status: Chronic (8) GERD (gastroesophageal reflux disease) Status: Chronic TIFFANIE RODRIGUEZ MD Jan 02, 2021 09:10
[2021-01-02] MEDS: CATHETER FLUSH 10 ML SYR IV SCH ×2 (09:55→20:09)
--- NOTE | 2021-01-02 15:49 | Progress Note - Surgery ---
Subjective Date Seen by a Provider: Jan 02, 2021 Time Seen by a Provider: 15:46 Subjective/Events-last exam Patient feeling better today. Less distended. No nausea or vomiting. NG tube can never be placed. Patient is passing some flatus and having liquid bowel movements. Since having small bowel follow-through. Patient small bowel follow-through consistent with prior third partial small bowel obstruction however contrast made his way through to the colon approximately 2-1/2 hours. Patient is ambulating. Has no other complaints at this time. Denies fever sweats chills shortness of breath or chest pain. WBC decreasing. Objective Exam Vital Signs Date Time Temp Pulse Resp B/P (MAP) Pulse Ox O2 Delivery O2 Flow Rate FiO2 01/02/21 11:44 37.1 58 20 156/78 (104) 97 Room Air 01/02/21 08:27 37.1 64 18 145/82 (103) 97 Room Air 01/02/21 08:00 Room Air 01/02/21 03:51 36.7 63 18 137/76 (96) 96 Room Air 01/02/21 00:00 36.4 76 18 138/82 (100) 95 Room Air 01/01/21 20:21 37.1 80 18 160/86 (110) 96 Room Air 01/01/21 20:19 37.1 80 18 160/86 (110) 96 Room Air 01/01/21 20:15 96 Room Air 01/01/21 17:20 98 Room Air 01/01/21 16:04 37.0 68 18 201/100 (133) 98 Room Air I & O 01/02/21 06:59 Intake Total 1850 ml Balance 1850 ml Capillary Refill : Less Than 3 Seconds General Appearance: No Apparent Distress, WD/WN HEENT: PERRL/EOMI, Pharynx Normal Neck: Normal Inspection, Supple Respiratory: Chest Non Tender, No Accessory Muscle Use, No Respiratory Distress Cardiovascular: Regular Rate, Rhythm, No Edema, No JVD Gastrointestinal: distended (Less than yesterday), tenderness (No significant tenderness), hernia (b/l able to be reduced) Extremity: Normal Inspection, Non Tender, No Pedal Edema Neurologic/Psychiatric: Alert, Oriented x3, No Motor/Sensory Deficits, 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 Skin: Normal Color, Warm/Dry Lymphatic: No Adenopathy Results Lab Laboratory Tests 01/02/21 05:45: White Blood Count 12.1H, Red Blood Count 4.65, Hemoglobin 14.3, Hematocrit 41, Mean Corpuscular Volume 88, Mean Corpuscular Hemoglobin 31, Mean Corpuscular Hemoglobin Concent 35, Red Cell Distribution Width 13.2, Platelet Count 289, Mean Platelet Volume 10.5, Immature Granulocyte % (Auto) 0, Neutrophils (%) (Auto) 75, Lymphocytes (%) (Auto) 12, Monocytes (%) (Auto) 11, Eosinophils (%) (Auto) 1, Basophils (%) (Auto) 0, Neutrophils # (Auto) 9.1H, Lymphocytes # (Auto) 1.4, Monocytes # (Auto) 1.3H, Eosinophils # (Auto) 0.2, Basophils # (Auto) 0.0, Immature Granulocyte # (Auto) 0.0, Sodium Level 136, Potassium Level 3.9, Chloride Level 107, Carbon Dioxide Level 19L, Anion Gap 10, Blood Urea Nitrogen 15, Creatinine 0.79, Estimat Glomerular Filtration Rate 98, B UN/Creatinine Ratio 19, Glucose Level 117H, Calcium Level 9.1 Assessment/Plan Assessment/Plan Assessment/Plan nausea vomiting small bowel obstruction at least partial abdominal distention abdominal pain llq b/l inguinal hernia Patient improving. He is having bowel function and passing flatus. We will start him on clears today. Encourage ambulation as well. If continues to tolerate liquids and still passing flatus we will likely advance diet tomorrow. RHONA PERSON DO Jan 02, 2021 15:49
[2021-01-02] MEDS: PSEUDOEPHEDRINE HCL 30 MG (SUDAFED) TAB PO SCH ×2 (17:40→20:08)
[2021-01-02] MEDS: ENOXAPARIN 40 MG/0.4 ML (LOVENOX) SYR SC SCH (17:49)
[2021-01-02] MEDS: FAMOTIDINE 20 MG (PEPCID) TABLET PO SCH (20:08)
[2021-01-03 04:34] VITALS: BP 141/62
[2021-01-03] MEDS: LACTATED RINGERS 1,000 ML IV SCH (05:40)
--- NOTE | 2021-01-03 06:19 | Progress Note - Surgery ---
Subjective Date Seen by a Provider: Jan 03, 2021 Time Seen by a Provider: 06:15 Subjective/Events-last exam Passing flatus and had bm yesterday. Still a little distended. Taking some liquids. No significant pain or discomfort. Denies n/v fever sweats chills shortness of breath or chest pain. Objective Exam Vital Signs Date Time Temp Pulse Resp B/P (MAP) Pulse Ox O2 Delivery O2 Flow Rate FiO2 01/03/21 04:34 36.4 62 18 141/62 (88) 96 Room Air 01/02/21 23:18 36.6 58 20 136/67 (90) 96 Room Air 01/02/21 20:36 36.3 57 20 166/86 (112) 96 Room Air 01/02/21 20:10 Room Air 01/02/21 16:30 36.9 60 18 148/73 (98) 97 Room Air 01/02/21 11:44 37.1 58 20 156/78 (104) 97 Room Air 01/02/21 08:27 37.1 64 18 145/82 (103) 97 Room Air 01/02/21 08:00 Room Air I & O 01/03/21 07:00 Intake Total 2020 ml Balance 2020 ml Capillary Refill : Less Than 3 Seconds General Appearance: No Apparent Distress, WD/WN HEENT: PERRL/EOMI, Pharynx Normal Neck: Normal Inspection, Supple Respiratory: Chest Non Tender, No Accessory Muscle Use, No Respiratory Distress Cardiovascular: Regular Rate, Rhythm, No Edema, No JVD Gastrointestinal: distended (mild), tenderness (No significant tenderness), hernia (b/l able to be reduced) Extremity: Normal Inspection, Non Tender, No Pedal Edema Neurologic/Psychiatric: Alert, Oriented x3, No Motor/Sensory Deficits, 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 Skin: Normal Color, Warm/Dry Lymphatic: No Adenopathy Assessment/Plan Assessment/Plan Assessment/Plan nausea vomiting small bowel obstruction at least partial abdominal distention abdominal pain llq b/l inguinal hernia He is having some bowel function and passing flatus. Tolerating some clears, has not taken much though. Encourage ambulation. If continues to tolerate liquids and still passing flatus we will likely advance diet, but if remains distended and not, reevaluate tomorrow. RHONA PEROSN DO Jan 03, 2021 06:19
[2021-01-03] MEDS: CATHETER FLUSH 10 ML SYR IV SCH (06:48)
[2021-01-03] MEDS: PSEUDOEPHEDRINE HCL 30 MG (SUDAFED) TAB PO SCH ×2 (08:47→12:49)
[2021-01-03] MEDS: FAMOTIDINE 20 MG (PEPCID) TABLET PO SCH (08:47)
[2021-01-03] MEDS: PANTOPRAZOLE 40 MG (PROTONIX) VIAL IV SCH (08:47)
[2021-01-03] MEDS ORDERED: ASPIRIN 81 MG CHEW (CHILDREN'S ASA) PO SCH (09:00)
[2021-01-03] MEDS ORDERED: NON-FORMULARY MEDICATION 1 EA EA (Loratadine/Pseudoephedrine (Claritin-D 24 Hour Tablet) 1 PO SCH (09:00)
[2021-01-03] MEDS ORDERED: ASCORBIC ACID (VIT C) 500 MG TABLET PO SCH (09:00)
[2021-01-03] MEDS ORDERED: VITAMIN D3 25 MCG (1,000 UNITS) TABLET PO SCH (09:00)
[2021-01-03] MEDS ORDERED: LORATADINE (CLARITIN) 10 MG TAB PO SCH (09:00)
[2021-01-03] MEDS ORDERED: LOSARTAN 100 MG (COZAAR) TABLET PO SCH (09:00)
[2021-01-03 09:15] LABS: BASOPHILS % (AUTO) 0 % (0-10); EOSINOPHILS # (AUTO) 0.2 10^3/uL (0.0-0.3); EOSINOPHILS % (AUTO) 2 % (0-10); HEMATOCRIT 41 % (40-54); HEMOGLOBIN 14.1 g/dL (13.3-17.7); LYMPHOCYTES # (AUTO) 1.7 10^3/uL (1.0-4.0); LYMPHOCYTES % (AUTO) 19 % (12-44); MEAN CORPUSCULAR HEMOGLOBIN 31 pg (25-34); MEAN CORPUSCULAR HGB CONC 34 g/dL (32-36); MEAN CORPUSCULAR VOLUME 90 fL (80-99); MEAN PLATELET VOLUME 10.6 fL (9.0-12.2); MONOCYTES # (AUTO) 0.8 10^3/uL (0.0-1.0); MONOCYTES % (AUTO) 9 % (0-12); NEUTROPHILS # (AUTO) 6.2 10^3/uL (1.8-7.8); NEUTROPHILS % (AUTO) 70 % (42-75); PLATELET COUNT 264 10^3/uL (130-400)
[2021-01-03 09:25] LABS: POTASSIUM 3.7 MMOL/L (3.6-5.0)
[2021-01-03 09:26] LABS: CALCIUM 9.2 MG/DL (8.5-10.1)
[2021-01-03 09:31] LABS: CREATININE SERUM 0.83 MG/DL (0.60-1.30)
--- NOTE | 2021-01-03 11:16 | Progress Note - Hospitalist ---
Subjective HPI/CC On Admission Date Seen by Provider: Jan 03, 2021 Time Seen by Provider: 09:55 Andres Story is a 65-year-old male with past medical history of hypertension, GERD, anxiety, history of multiple abdominal surgeries, who presented with abdominal pain. He reports that his abdomen had been distended. He had pain in the lower parts of his abdomen. He was also having nausea and vomiting. He had some watery diarrhea. He denies any fevers or chills. He denies any chest pain or palpitations. He denies any shortness of breath or cough. He is passing gas. He has had several bowel movements overnight. Subjective/Events-last exam He is doing well this morning. He is not having any nausea or vomiting. He is not having any abdominal pain. He tolerated his clear liquids well. He has had a bowel movement this morning. He has been up and moving around. He is agreeable to advancing his diet. Objective Exam Vital Signs Vital Signs Date Time Temp Pulse Resp B/P (MAP) Pulse Ox O2 Delivery O2 Flow Rate FiO2 01/03/21 08:52 64 01/03/21 08:00 Room Air 01/03/21 04:34 36.4 18 141/62 (88) 96 Capillary Refill : Less Than 3 Seconds General Appearance: No Apparent Distress, WD/WN Respiratory: Lungs Clear, Normal Breath Sounds, No Respiratory Distress Cardiovascular: Regular Rate, Rhythm, No Edema, No Murmur Gastrointestinal: Normal Bowel Sounds, Non Tender, Soft Extremity: Normal Inspection, Non Tender, No Pedal Edema Neurologic/Psychiatric: Alert, Oriented x3, No Motor/Sensory Deficits, 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 Skin: Normal Color, Warm/Dry Results/Procedures Lab Laboratory Tests 01/03/21 08:48 Patient resulted labs reviewed. Imaging: Reviewed Imaging Report Assessment/Plan Assessment and Plan Assess & Plan/Chief Complaint Small bowel obstruction History of multiple abdominal surgeries History of cholecystectomy History of appendectomy History of abdominal wall dehiscence s/p surgical repair Surgery following, appreciate assistance CT showed partial small bowel obstruction Small bowel follow through consistent with partial obstruction Tolerating clear liquids Advance to general diet If tolerating, consider discharge Encourage ambulation HTN CAD GERD Continue home meds when diet advanced DVT prophylaxis: Lovenox Diagnosis/Problems Diagnosis/Problems (1) Small bowel obstruction Status: Acute (2) History of abdominal surgery Status: Chronic (3) History of cholecystectomy Status: Chronic (4) History of appendectomy Status: Chronic (5) Abdominal wall dehiscence Status: Chronic Qualifiers: Encounter type: sequela Qualified Codes: T81.30XS - Disruption of wound, unspecified, sequela (6) HTN (hypertension) Status: Chronic Qualifiers: Hypertension type: essential hypertension Qualified Codes: I10 - Essential (primary) hypertension (7) CAD (coronary artery disease), [place] coronary artery Status: Chronic (8) GERD (gastroesophageal reflux disease) Status: Chronic REBECCA RODRIGUEZ MD Jan 03, 2021 11:16
[2021-01-03 11:26] VITALS: BP 171/80
[2021-01-03 16:00] VITALS: BP 168/77
[2021-01-03 16:29] VITALS: BP 171/80
== END 2021-01-03 16:10 | disposition home or self-care (01) | DRG 395 ==
LOC: EDUNIT# 08:23 → ER 08:24 → 4TH 14:00
PROVIDERS: ADMIT Internal Medicine; ATTEND Internal Medicine
DX: K40.00 Bilateral inguinal hernia, with obstruction, without gangrene, not specified as recurrent (principal); I25.10 Atherosclerotic heart disease of native coronary artery without angina pectoris; Z20.822 Contact with and (suspected) exposure to COVID-19; E78.00 Pure hypercholesterolemia, unspecified; I10 Essential (primary) hypertension; K21.9 Gastro-esophageal reflux disease without esophagitis; K57.90 Diverticulosis of intestine, part unspecified, without perforation or abscess without bleeding; G89.29 Other chronic pain; M54.9 Dorsalgia, unspecified; F41.9 Anxiety disorder, unspecified; Z95.5 Presence of coronary angioplasty implant and graft; Z90.49 Acquired absence of other specified parts of digestive tract; T81.30XS Disruption of wound, unspecified, sequela
CPT/HCPCS: 36415; 74177; 74250; 80048; 80053; 81000; 82947; 83690; 85007; 85025; 85027; 86141; 87636

== ENCOUNTER 2021-05-05 20:29 | Emergency (ER) | payer MEDICARE, OTHER, MEDICAID ==
[~2021-05-05] VITALS: Ht 182 cm; Wt 88.4 kg
[~2021-05-05 20:29] MED LIST changes: +ASCO500C17 PO; +CYCL10TA25 PO; -CYCL10TA9 PO; +DILT180C82 PO; +FAMO10TA43 PO; +LORA-877 PO
[2021-05-05] MEDS ORDERED: FLD5TCR (20:43)
[2021-05-05] MEDS ORDERED: METO50TA7 (20:43)
[2021-05-05 20:53] LABS: BASOPHILS % (AUTO) 0 % (0-10); EOSINOPHILS # (AUTO) 0.3 10^3/uL (0.0-0.3); EOSINOPHILS % (AUTO) 5 % (0-10); HEMATOCRIT 38 % (40-54); HEMOGLOBIN 13.3 g/dL (13.3-17.7); LYMPHOCYTES # (AUTO) 1.6 10^3/uL (1.0-4.0); LYMPHOCYTES % (AUTO) 26 % (12-44); MEAN CORPUSCULAR HEMOGLOBIN 31 pg (25-34); MEAN CORPUSCULAR HGB CONC 35 g/dL (32-36); MEAN CORPUSCULAR VOLUME 90 fL (80-99); MEAN PLATELET VOLUME 9.5 fL (9.0-12.2); MONOCYTES # (AUTO) 0.5 10^3/uL (0.0-1.0); MONOCYTES % (AUTO) 8 % (0-12); NEUTROPHILS # (AUTO) 3.8 10^3/uL (1.8-7.8); NEUTROPHILS % (AUTO) 60 % (42-75); PLATELET COUNT 284 10^3/uL (130-400); WHITE BLOOD COUNT 6.3 10^3/uL (4.3-11.0)
[2021-05-05] MEDS ORDERED: hydrALAZINE (APESOLINE) 20 MG/ML VIAL IV ONE (21:00)
--- NOTE | 2021-05-05 21:03 | ED Cardiac General ---
History of Present Illness General Chief Complaint: Cardiac/General Problems Stated Complaint: HIGH BLOOD PRESSURE, IRREGULAR HEART BEAT Nursing Triage Note: C/O HIGH BLOOD PRESSURE X2 DAYS, PALPITATIONS WORSE TODAY. REPORTS TAKING CLONIDINE APPROX. 1900 Source: patient History of Present Illness Date Seen by Provider: May 05, 2021 Time Seen by Provider: 20:39 Initial Comments PT ARRIVES VIA POV FROM HOME WITH C/O ELEVATED BLOOD PRESSURE FOR THE LAST COUPLE OF DAYS, BUT IS ONGOING ISSUE FOR THE LAST FEW WEEKS STATES BP WAS 190/90 PRIOR TO ARRIVAL STATES A COUPLE OF WEEKS AGO, HIS CARTIA DOSE WAS INCREASED, BUT ONLY FOR ABOUT A WEEK--WAS THEN DECREASED BACK DOWN TO HIS NORMAL DOSE OF 180 MG, DUE TO WEIGHT GAIN AND FLUID RETENTION/LEG SWELLING NO OTHER MEDICATION CHANGES AND NO MISSED DOSES OF MEDICATIONS TOOK CLONIDINE AT 1900 AND THEN TOOK A XANAX AT 1930--THOUGHT IT MIGHT BE DUE TO ANXIETY C/O PALPITATIONS--FEELS LIKE HIS HEART IS BEATING HARD AND HAS BEEN BEATING IRREGULAR AT TIMES NO CHEST PAIN HAS CHRONIC SHORTNESS OF BREATH WITH EXERTION, AND IS NO DIFFERENT THAN NORMAL HAS OCCASIONAL SWELLING IN LEGS/FEET, BUT NOT TODAY NO SWEATS NO DIZZINESS OR SYNCOPE NO GI SYMPTOMS NO FEVER OR RECENT ILLNESS NO COUGH DENIES HISTORY OF HEART PROBLEMS, BUT PER OLD CHART, PT HAS HAD CARDIAC STENTS X 2 PT IS NOT COVID-19 VACCINATED. Associated Systoms: No Denies Symptoms, No Chest Pain, No Cough, No Diaphoresis, No Fever/Chills, No Headaches, No Loss of Appetite, No Malaise, No Nausea/Vomiting, No Rash, No Seizure, No Shortness of Air, No Syncope, No Weakn ess, No Other PCP: [facility], CHINEDU KEITH HAS FIRST APPOINTMENT WITH [facility], DR. WOOD, ON 05/14/[address] RUSTAM CHE/PA ( [facility]) ABOUT 1 1/2 YEARS AGO ONE TIME, FOR HTN Allergies and Home Medications Allergies Coded Allergies: levofloxacin (Unverified Allergy, Mild, LEG/ BONE PAIN, 11/26/18) Sulfa (Sulfonamide Antibiotics) (Verified Allergy, Unknown, 11/26/18) dextromethorphan (Verified Allergy, Unknown, 11/26/18) meperidine (Unverified Adverse Reaction, Unknown, 11/26/18) Patient Home Medication List Ascorbic Acid (Vitamin C) 500 Mg Capsule, 500 MG PO DAILY, (Reported) Entered as Reported by: FRANKLYN HURTADO on 01/02/21852 Aspirin (Aspirin) 81 Mg Tab.chew, 81 MG PO DAILY, (Reported) Entered as Reported by: FRANKLYN HURTADO on 01/02/21849 Last Action: Last Taken Edited Cholecalciferol (Vitamin D3) (Vitamin D3) 1,000 Unit Capsule, 1,000 UNIT PO DAILY, (Reported) Entered as Reported by: MCKAYLA SAINI on 05/15/181407 Diltiazem HCl (Diltiazem ER) 180 Mg Capsule.er, 180 MG PO DAILY, (Reported) Entered as Reported by: FRANKLYN HURTADO on 01/02/21848 Last Action: Last Taken Edited Famotidine (Pepcid AC) 10 Mg Tablet, 20 MG PO BID, (Reported) Entered as Reported by: FRANKLYN HURTADO on 01/02/21850 Last Action: Last Taken Edited Felodipine (Felodipine ER) 5 Mg Tab.er.24h, (Reported) Entered as Reported by: GIANNA SMITH on 05/05/212042 Last Action: New Order Loratadine/Pseudoephedrine (Claritin-D 24 Hour Tablet) 1 Each Tab.er.24h, 1 EACH PO DAILY, (Reported) Entered as Reported by: FRANKLYN HURTADO on 01/02/21849 Last Action: Last Taken Edited Losartan Potassium (Losartan Potassium) 100 Mg Tablet, 100 MG PO DAILY, (Reported) Entered as Reported by: MCKAYLA SAINI on 05/15/181407 Last Action: Last Taken Edited Metoprolol Succinate (Metoprolol Succinate) 50 Mg Tab.er.24h, (Reported) Entered as Reported by: GIANNA SMITH on 05/05/212042 Last Action: New Order Review of Systems Review of Systems Constitutional: no symptoms reported; No diaphoresis, No dizziness Respiratory: See HPI Cardiovascular: See HPI Gastrointestinal: No Symptoms Reported Genitourinary: No Symptoms Reported Musculoskeletal: no symptoms reported Skin: no symptoms reported Psychiatric/Neurological: Anxiety Endocrine: No Symptoms Reported Hematologic/Lymphatic: No Symptoms Reported Past Mvvkecr-[id number]-[id number] Hx Patient Social History Tobacco Use?: No Substance use?: No Alcohol Use?: Yes Alcohol type: Beer Alcohol Frequency: Once in a while Pt feels they are or have been: No Seasonal Allergies Seasonal Allergies: No Past Medical History Surgery/Hospitalization HX: ABD HERNIA, APPY, MANSI, CARDIAC STENTS, LOWER BACK, CAD, PALPITATIONS, GERD, DIVERTICULOSIS. Surgeries: Yes (BACK, HERNIAS, FACE LACERATION, ) Abdominal, Appendectomy, Coronary Stent, Gallbladder, Orthopedic Respiratory: No Cardiac: Yes (STENT X2) Coronary Artery Disease, High Cholesterol, Hypertension, Irregular Heartbeat, Palpitations Neurological: No Reproductive Disorders: No Sexually Transmitted Disease: No HIV/AIDS: No Genitourinary: No Gastrointestinal: Yes Gastroesophageal Reflux, Diverticulosis Musculoskeletal: Yes (BACK SURGERY; L1 COMPRESSION FX WITH KYPHOPLASTY 01/2015, ) Chronic Back Pain Endocrine: No HEENT: Yes (READING GLASSES) Loss of Vision: Denies Hearing Impairment: Hard of Hearing Cancer: No Psychosocial: Yes Anxiety Integumentary: No Blood Disorders: Yes (tularemia) Adverse Reaction/Blood Tranf: No Family Medical History No Pertinent Family Hx Physical Exam Vital Signs Vital Signs - First Documented 05/05/21 20:38 Temp 36.2 Pulse 81 Resp 16 B/P (MAP) 188/89 (122) Pulse Ox 98 O2 Delivery Room Air Capillary Refill : Less Than 3 Seconds Height, Weight, BMI Height: 6'0.00" Weight: 190lbs. 0.0oz. 86.882972jm; 26.00 BMI Method:Stated General Appearance: No Apparent Distress, WD/WN, Anxious Neck: Normal Inspection; No JVD Respiratory: Normal Breath Sounds, No Accessory Muscle Use, No Respiratory Distress Cardiovascular: Regular Rate, Rhythm, No Edema, No JVD, No Murmur, Normal Peripheral Pulses, Extra Beats (FREQUENT PAC'S) Gastrointestinal: Non Tender, Soft Extremity: Normal Inspection, No Pedal Edema Neurologic/Psychiatric: Alert, Oriented x3, No Motor/Sensory Deficits, gate manager II- XII Norm as Tested, Other (ANXIOUS) Skin: Normal Color, Warm/Dry Progress/Results/Core Measures Results/Orders Lab Results Laboratory Tests Test 05/05/21 20:45 05/05/21 21:43 Range/Units White Blood Count 6.3 4.3-11.0 10^3/uL Red Blood Count 4.24 L 4.30-5.52 10^6/uL Hemoglobin 13.3 13.3-17.7 g/dL Hematocrit 38 L 40-54 % Mean Corpuscular Volume 90 80-99 fL Mean Corpuscular Hemoglobin 31 25-34 pg Mean Corpuscular Hemoglobin Concent 35 32-36 g/dL Red Cell Distribution Width 12.1 10.0-14.5 % Platelet Count 284 130-400 10^3/uL Mean Platelet Volume 9.5 9.0-12.2 fL Immature Granulocyte % (Auto) 1 % Neutrophils (%) (Auto) 60 42-75 % Lymphocytes (%) (Auto) 26 12-44 % Monocytes (%) (Auto) 8 0-12 % Eosinophils (%) (Auto) 5 0-10 % Basophils (%) (Auto) 0 0-10 % Neutrophils # (Auto) 3.8 1.8-7.8 10^3/uL Lymphocytes # (Auto) 1.6 1.0-4.0 10^3/uL Monocytes # (Auto) 0.5 0.0-1.0 10^3/uL Eosinophils # (Auto) 0.3 0.0-0.3 10^3/uL Basophils # (Auto) 0.0 0.0-0.1 10^3/uL Immature Granulocyte # (Auto) 0.1 0.0-0.1 10^3/uL Prothrombin Time 11.9 L 12.2-14.7 SEC INR Comment 0.8 0.8-1.4 Activated Partial Thromboplast Time 37 H 24-35 SEC Sodium Level 132 L 135-145 MMOL/L Potassium Level 3.8 3.6-5.0 MMOL/L Chloride Level 96 L 98-107 MMOL/L Carbon Dioxide Level 24 21-32 MMOL/L Anion Gap 12 5-14 MMOL/L Blood Urea Nitrogen 11 7-18 MG/DL Creatinine 0.83 0.60-1.30 MG/DL Estimat Glomerular Filtration Rate 93 BUN/Creatinine Ratio 13 Glucose Level 185 H 70-105 MG/DL Calcium Level 9.8 8.5-10.1 MG/DL Corrected Calcium 9.6 8.5-10.1 MG/DL Magnesium Level 1.4 L 1.6-2.4 MG/DL Total Bilirubin 0.6 0.1-1.0 MG/DL Aspartate Amino Transf (AST/SGOT) 20 5-34 U/L Alanine Aminotransferase (ALT/SGPT) 23 0-55 U/L Alkaline Phosphatase 72 40-136 U/L Total Creatine Kinase 68 30-200 U/L Creatine Kinase MB 2.2 <6.6 NG/ML Myoglobin 50.5 10.0-92.0 NG/ML Troponin I < 0.028 <0.028 NG/ML B-Type Natriuretic Peptide 27.1 <100.0 PG/ML Total Protein 7.2 6.4-8.2 GM/DL Albumin 4.3 3.2-4.5 GM/DL TSH Pratt Testing 4.10 0.35-4.94 UIU/ML My Orders Orders - GABRIELA BLAIR DO Ed Iv/Invasive Line Start (05/05/21 20:39) Ekg Tracing (05/05/21 20:39) O2 (05/05/21 20:39) Monitor-Rhythm Ecg Trace Only (05/05/21 20:39) Chest 1 View, Ap/Pa Only (05/05/21 20:39) BNP (05/05/21 20:39) Cbc With Automated Diff (05/05/21 20:39) Comprehensive Metabolic Panel (05/05/21 20:39) Creatine Kinase (05/05/21 20:39) Creatine Kinase Mb (05/05/21 20:39) Magnesium (05/05/21 20:39) Protime With Inr (05/05/21 20:39) Partial Thromboplastin Time (05/05/21 20:39) Thyroid Analyzer (05/05/21 20:39) Ua Culture If Indicated (05/05/21 20:39) Myoglobin Serum (05/05/21 20:39) Troponin I (05/05/21 20:39) Hydralazine Injection (Apresoline Inject (05/05/21 21:00) Magnesium Oxide Tablet (Mag Ox Tablet) (05/05/21 21:45) Medications Given in ED Current Medications Medications Dose Ordered Sig/Ankita Route Start Time Stop Time Status Last Admin Dose Admin Hydralazine HCl 10 mg ONCE ONCE IV 05/05/21 21:00 05/05/21 21:01 DC 05/05/21 20:54 10 MG Magnesium Oxide 1,600 mg ONCE ONCE PO 05/05/21 21:45 05/05/21 21:46 DC 05/05/21 21:43 1,600 MG Vital Signs/I&O 05/05/21 20:38 Temp 36.2 Pulse 81 Resp 16 B/P (MAP) 188/89 (122) Pulse Ox 98 O2 Delivery Room Air Blood Pressure Mean: 122 Progress Progress Note : Progress Note BP ON ARRIVAL 188/89, RR 18, O2 SAT 98% ON ROOM AIR GIVEN HYDRALAZINE FOR ELEVATED BP Initial ECG Impression Date: May 05, 2021 Initial ECG Impression Time: 20:43 Initial ECG Rate: 82 Initial ECG Rhythm: Normal Sinus (PAC'S) Departure Impression Primary Impression: HTN (hypertension) Additional Impressions: Palpitations PAC (premature atrial contraction) Hyperglycemia Hypomagnesemia Anxiety Disposition: 01 HOME, SELF-CARE Condition: Improved Departure-Patient Inst. Decision time for Depature: 22:00 Referrals: ISIDORO KEITH APRN (PCP) Primary Care Physician SHERRI WOOD JR, MD Patient Instructions: Palpitations ED, High Blood Sugar, Adult ED, DASH Diet, High Blood Pressure (DC) Add. Discharge Instructions: CONTINUE YOUR MEDICATIONS PRESCRIBED TAKE CLONIDINE EVERY DAY--1/2 TO 1 PILL TWICE A DAY TAKE MAGNESIUM DAILY IF POSSIBLE KEEP YOUR APPOINTMENT WITH DR. WOOD FOLLOW UP WITH [facility] FOR FURTHER EVALUATION OF ELEVATED BLOOD SUGAR All discharge instructions reviewed with patient and/or family. Voiced unders tanding. GABRIELA BLAIR DO May 05, 2021 21:03
[2021-05-05 21:17] LABS: ALBUMIN 4.3 GM/DL (3.2-4.5); CHLORIDE 96 MMOL/L (98-107)
[2021-05-05 21:18] LABS: POTASSIUM 3.8 MMOL/L (3.6-5.0); SODIUM 132 MMOL/L (135-145)
[2021-05-05 21:19] LABS: CALCIUM 9.8 MG/DL (8.5-10.1)
--- NOTE | 2021-05-05 21:19 | Diagnostic Imaging Report ---
HISTORY: Hypertension, high blood pressure, palpitations. COMPARISON: 09/17/2019. TECHNIQUE: Frontal view of the chest. FINDINGS: Lung volumes are normal. No consolidation is seen. There is no pleural effusion or pneumothorax. Findings appear stable when compared to 09/17/2019. The cardiac silhouette is stable in size. IMPRESSION: No acute pulmonary abnormality. Dictated by: Dictated on workstation # [id number]
[2021-05-05 21:20] LABS: GLUCOSE 185 MG/DL (70-105); TOTAL PROTEIN 7.2 GM/DL (6.4-8.2)
[2021-05-05 21:21] LABS: CARBON DIOXIDE 24 MMOL/L (21-32)
[2021-05-05 21:22] LABS: BILIRUBIN,TOTAL 0.6 MG/DL (0.1-1.0); INR 0.8 (0.8-1.4); PROTHROMBIN TIME PATIENT 11.9 SEC (12.2-14.7)
[2021-05-05 21:23] LABS: ALKALINE PHOSPHATASE 72 U/L (40-136)
[2021-05-05 21:24] LABS: CREATININE SERUM 0.83 MG/DL (0.60-1.30); GFR ESTIMATED 93
[2021-05-05 21:25] LABS: BUN/CREATININE RATIO 13
[2021-05-05 21:26] LABS: ALANINE AMINOTRANSFERASE 23 U/L (0-55); MAGNESIUM 1.4 MG/DL (1.6-2.4)
[2021-05-05 21:27] LABS: CREATINE KINASE 68 U/L (30-200)
[2021-05-05 21:34] LABS: CREATINE KINASE MB 2.2 NG/ML (<6.6)
[2021-05-05] MEDS ORDERED: MAGNESIUM OXIDE (MAG-OX)400 MG TAB PO ONE (21:45)
[2021-05-05 21:51] LABS: BILIRUBIN,URINE NEGATIVE (NEGATIVE); CLARITY,URINE CLEAR; COLOR,URINE YELLOW; GLUCOSE, URINE (UA) NEGATIVE (NEGATIVE); KETONES,URINE NEGATIVE (NEGATIVE); LEUKOCYTE ESTERASE ,URINE NEGATIVE (NEGATIVE); NITRITE,URINE NEGATIVE (NEGATIVE); PROTEIN,URINE TRACE (NEGATIVE)
[2021-05-05 22:06] VITALS: BP 120/69
[2021-05-05 22:06] LABS: BACTERIA,URINE TRACE /HPF; HYALINE CASTS, URINE RARE /LPF; WBC,URINE RARE /HPF
== END 2021-05-05 22:12 | disposition home or self-care (01) ==
LOC: EDUNIT# 20:29 → ER 20:32
DX: I10 Essential (primary) hypertension (principal); R00.2 Palpitations; I49.1 Atrial premature depolarization; R73.9 Hyperglycemia, unspecified; E83.42 Hypomagnesemia; F41.9 Anxiety disorder, unspecified; K21.9 Gastro-esophageal reflux disease without esophagitis; Z79.82 Long term (current) use of aspirin; Z79.899 Other long term (current) drug therapy
CPT/HCPCS: 36415; 71045; 80053; 81000; 82550; 82553; 83735; 83874; 83880; 84443; 84484; 85025; 85610; 85730; 93005; 93041

== ENCOUNTER 2021-06-25 09:53 | Outpatient (CLI) | payer MEDICARE, OTHER, MEDICAID ==
[~2021-06-25 09:53] MED LIST changes: +FLD5TCR; +METO50TA7
== END 2021-06-25 10:15 ==
LOC: SLEEP 09:53
PROVIDERS: ATTEND Internal Medicine Cardiovascular Disease
DX: G47.33 Obstructive sleep apnea (adult) (pediatric) (principal); I10 Essential (primary) hypertension; E78.2 Mixed hyperlipidemia; I25.10 Atherosclerotic heart disease of native coronary artery without angina pectoris; E66.3 Overweight; F41.1 Generalized anxiety disorder
CPT/HCPCS: G0399

== ENCOUNTER 2021-07-22 10:00 | Day surgery (SDC) | payer MEDICARE, OTHER, MEDICAID ==
[~2021-07-22] VITALS: Ht 182 cm; Wt 94.0 kg
[2021-07-22] VITALS (19 sets, daily range): BP systolic 117–155; BP diastolic 60–83
[~2021-07-22 10:00] MED LIST changes: +ALPR0.254 PO; +ASPI-1238 PO; +ASPIRIN 325 MG (5 GR) TABLET ONE; +ASPIRIN 81 MG CHEW (CHILDREN'S ASA) ONE; +ASPIRIN 81 MG CHEW (CHILDREN'S ASA) PO ONE; +CATHETER FLUSH 10 ML SYR IV PRN; +CETI10TA49 PO; +CLON1PAT2 TD; +DILT180C85 PO; +HEParin (CATH LAB) 2,000 ML IV ONE; +LIDOCAINE 1% INJ 20 ML VIAL ONE; +NS IV 1000 ML 1,000 ML IV ONE; +NS IV 1000 ML 1,000 ML ONE; +OMEP40CA6 PO; +TMSL.4C PO; +[UNRECOGNIZED DRUG - MIXTURE] PO
--- NOTE | 2021-07-22 10:27 | Pre-Op Note & Conscious Sedat ---
Pre-Operative Progress Note H&P Reviewed The H&P was reviewed, patient examined and no changes noted. Date H&P Reviewed: Jul 22, 2021 Time H&P Reviewed: 10:26 Pre-Op Diagnosis: Coronary artery disease with angina pectoris. Conscious Sedation Pre-Proced ASA Score 2 For ASA 3 and 4: Consider anesthesia and medical clearance. Also, for patients with a history of failed moderate sedation consider anesthesia. Airway Lungs Heart ASA score ASA 1: a normal healthy patient ASA 2: a patient with a mild systemic disease (mid diabetes, controlled hypertension, obesity ASA 3: a patient with a severe systemic disease that limits activity (angina, COPD, prior Myocardial infarction) ASA 4: a patient with an incapacitating disease that is a constant threat to life (CHF, renal failure) ASA 5: a moribund patient not expected to survive 24 hrs. (ruptured aneurysm) ASA 6: a declared brain- patient whose organs are being harvested. For emergent operations, add the letter E after the classification Mallampati Classification Grade 2 Sedation Plan Analgesia, Amnesia, Plan communicated to team members, Discussed options with patient/fam, Discussed risks with patient/fam The patient is an appropriate candidate to undergo the planned procedure, sedation, and anesthesia. The patient immediately re-assessed prior to indication. SHERRI WOOD JR, MD Jul 22, 2021 10:27
[2021-07-22] MEDS ORDERED: VERAPAMIL 5 MG/2 ML (CALAN) VIAL IV ONE (11:20)
[2021-07-22] MEDS ORDERED: fentaNYL INJ 100 MCG/2 ML AMP ONE (11:20)
[2021-07-22] MEDS ORDERED: MIDAZOLAM 5 MG/5 ML (VERSED) VIAL ONE (11:21)
[2021-07-22] MEDS ORDERED: HEParin 1000 UNIT/ML (10ML VIAL) FOR BOLUS ONE (11:21)
[2021-07-22] MEDS ORDERED: NITRO DRIP 25000 MCG/D5W 250 ML IV ONE (11:21)
[2021-07-22] MEDS ORDERED: LIDOCAINE 1% INJ 20 ML VIAL ONE (11:33)
--- NOTE | 2021-07-22 12:11 | Cardiac Cath Report ---
CARDIAC CATHETERIZATION DATE OF PROCEDURE: 07/22/2021 INDICATION: Coronary artery disease with angina pectoris. HISTORY: The patient is a 65 year old male with a known history of coronary artery disease with previous stents in his left anterior descending coronary artery. He has been having exertional dyspnea that has not responded to several different medications for angina. As such, he is now referred for further evaluation with a cardiac catheterization. PROCEDURES PERFORMED: 1. Diagnostic [place] coronary angiography. PROCEDURE DESCRIPTION: After informed consent and in the fasting state, left heart catheterization was performed through the right radial artery utilizing a 6 [place] system by percutaneous approach. Standard 5 [place] William catheters were utilized for the diagnostic portion of the procedure. All catheters were exchanged over a guidewire. Following the procedure, a vascular band was applied to the radial artery access site and the sheath was removed with good hemostasis. RESULTS: HEMODYNAMICS: The aortic pressure was 141/63 mmHg. The aortic valve was not crossed. CORONARY ANGIOGRAPHY: Left main coronary artery: Free of significant disease. Left anterior descending coronary artery: There was a 50% stenosis proximally just proximal to a small septal small engine specialist. There were stents in the mid and first part of the distal segment which appeared to be by a small gap of [place] vessel all of which was patent and free of significant disease. Left circumflex coronary artery: Free of significant disease. Right coronary artery: Dominant and there was a 30% stenosis in the proximal segment. IMPRESSION: 1. Mild systemic hypertension. 2. Patent stents in the mid and distal segment of the left anterior descending coronary artery with a 50% stenosis in the proximal segment of the vessel. 3. The right coronary artery is dominant contained mild disease. 4. The patient is known to have normal left ventricular systolic function with an estimated ejection fraction of 60% by echocardiogram obtained on 12/21/2020. Certain portions of this document may have been dictated utilizing voice r ecognition technology. Inherent to this technology, typographical and grammatical errors may exist. As much as I am diligent to identify and correct these mistakes, some errors may remain in the document. SHERRI WOOD JR, MD Jul 22, 2021 12:11
[2021-07-22] MEDS ORDERED: PATIENT MAY USE OWN MEDS, ALL PO SCH (12:15)
[2021-07-22] MEDS ORDERED: NS IV 1000 ML 1,000 ML IV SCH (12:15)
== END 2021-07-22 18:25 | disposition home or self-care (01) ==
LOC: CATH 10:00 → SDC 12:40 → CATH 18:25
PROVIDERS: ATTEND Internal Medicine Cardiovascular Disease
DX: I25.119 Atherosclerotic heart disease of native coronary artery with unspecified angina pectoris (principal); I10 Essential (primary) hypertension; E66.3 Overweight; E78.2 Mixed hyperlipidemia; F41.1 Generalized anxiety disorder; Z79.82 Long term (current) use of aspirin; Z87.891 Personal history of nicotine dependence; Z95.5 Presence of coronary angioplasty implant and graft; Z79.899 Other long term (current) drug therapy; Z80.9 Family history of malignant neoplasm, unspecified
CPT/HCPCS: 87081; 93454; C1894

== ENCOUNTER 2021-10-23 18:11 | Emergency (ER) | payer MEDICARE, OTHER, MEDICAID ==
[~2021-10-23] VITALS: Ht 182 cm; Wt 88.4 kg
[~2021-10-23 18:11] MED LIST changes: -ASPIRIN 325 MG (5 GR) TABLET ONE; -ASPIRIN 81 MG CHEW (CHILDREN'S ASA) ONE; -ASPIRIN 81 MG CHEW (CHILDREN'S ASA) PO ONE; -CATHETER FLUSH 10 ML SYR IV PRN; -HEParin (CATH LAB) 2,000 ML IV ONE; -LIDOCAINE 1% INJ 20 ML VIAL ONE; -NS IV 1000 ML 1,000 ML IV ONE; -NS IV 1000 ML 1,000 ML ONE
[2021-10-23 19:01] VITALS: BP 146/72
--- NOTE | 2021-10-23 19:33 | ED General ---
General Chief Complaint: General Problems/Pain Stated Complaint: BILAT LEG CRAMPS/HANDS CRAMPING/HEADACHE Nursing Triage Note: PT PRESENTS TO ED WITH COMPLAINTS OF BILAT LEG CRAMPING X 1 WEEK. PT REPORTS HE WAS SEEN AT URGENT CARE ON MONDAY AND RECIEVED FLUIDS BUT REPORTS NO IMPROVEMENT. PT REPORTS HE DID STOP TAKING HIS LASIX PER DR WOOD ORDERS BUT ALSO DID NOT IMPROVE THE CRAMPING Source of Information: Patient History of Present Illness Date Seen by Provider: October 23, 2021 Time Seen by Provider: 19:23 Initial Comments PT ARRIVES VIA POV FROM HOME WITH C/O LEGS AND HANDS CRAMPING FOR OVER A WEEK ALSO C/O HEADACHE PT HAS BEEN ON LASIX, BUT THIS WAS STOPPED ON MONDAY--NO RELIEF OF SYMPTOMS WENT TO [facility] ON MONDAY, AND GIVEN 1 1/2 LITERS OF FLUIDS, WITHOUT IMPROVEMENT HAS USED TOPICAL MEDICATION AND UNKNOWN OVER THE COUNTER MEDICATION FOR LEG CRAMPS WITHOUT RELIEF. NO OTHER SYMPTOMS PT HAS BEEN OUTSIDE WORKING IN THE YARD THIS PAST WEEK--VERY HOT OUTSIDE. STATES HE HAS BEEN DRINKING WATER AND PEDIALYTE POWDER + WATER PCP: [facility] SUPERVISOR: DR. WOOD Allergies and Home Medications Allergies Coded Allergies: levofloxacin (Unverified Allergy, Mild, LEG/ BONE PAIN, 11/26/18) Sulfa (Sulfonamide Antibiotics) (Verified Allergy, Unknown, 11/26/18) dextromethorphan (Verified Allergy, Unknown, 11/26/18) meperidine (Unverified Adverse Reaction, Unknown, 11/26/18) Patient Home Medication List Home Medication List Reviewed: Yes ALPRAZolam (ALPRAZolam) 0.25 Mg Tablet, 0.25 MG PO BID PRN for ANXIETY, (Reported) Entered as Reported by: NAS TEJADA on 07/22/21925 Aspirin (Aspirin EC) 81 Mg Tablet.dr, 81 MG PO DAILY, (Reported) Entered as Reported by: NAS TEJADA on 07/22/21918 Cetirizine HCl (Zyrtec) 10 Mg Tablet, 10 MG PO DAILY, (Reported) Entered as Reported by: NAS TEJADA on 07/22/21918 Clonidine (Catapres-TTS 2 Patch) 1 Each Patch.tdwk, 1 EACH TD Q7D PRN for BLOOD PRESSURE, (Reported) Entered as Reported by: NAS TEJADA on 07/22/21925 Diltiazem HCl (Diltiazem 24Hr ER) 180 Mg Cap.er.24h, 180 MG PO DAILY, (Reported) Entered as Reported by: NAS TEJADA on 07/22/21918 Losartan Potassium (Losartan Potassium) 100 Mg Tablet, 100 MG PO DAILY, (Reported) Entered as Reported by: NAS TEJADA on 07/22/21918 Omeprazole (Omeprazole) 40 Mg Capsule.dr, 40 MG PO DAILY, (Reported) Entered as Reported by: NAS TEJADA on 07/22/21918 Tamsulosin HCl (Flomax) 0.4 Mg Cap, 0.4 MG PO DAILY, (Reported) Entered as Reported by: NAS TEJADA on 07/22/21918 [C/D3/Zinc] , 1 TAB PO DAILY, (Reported) Entered as Reported by: NAS TEJADA on 07/22/21918 Review of Systems Review of Systems Constitutional: no symptoms reported EENTM: no symptoms reported Respiratory: no symptoms reported; No cough, No short of breath Cardiovascular: no symptoms reported; No chest pain, No edema, No palpitations Gastrointestinal: no symptoms reported Genitourinary: no symptoms reported Musculoskeletal: see HPI, muscle cramps Skin: no symptoms reported Psychiatric/Neurological: See HPI, Headache; Denies Numbness, Denies Paresthesia Hematologic/Lymphatic: No Symptoms Reported Immunological/Allergic: no symptoms reported Past Whjuwca-Lijutm-Imftch Hx Patient Social History Tobacco Use?: No Substance use?: No Alcohol Use?: Yes Alcohol type: Beer Alcohol Frequency: Daily Pt feels they are or have been: No Seasonal Allergies Seasonal Allergies: No Past Medical History Surgery/Hospitalization HX: ABD HERNIA, APPY, MANSI, CARDIAC STENTS, LOWER BACK, CAD, PALPITATIONS, GERD, DIVERTICULOSIS. Surgeries: Yes (BACK, HERNIAS, FACE LACERATION, ) Abdominal, Appendectomy, Cardiac, Coronary Stent, Gallbladder, Orthopedic Respiratory: No (COVID -19 [place] 04/2020--NO HOSPITALIZATION OR TREATMENT) Currently Using CPAP: No Currently Using BIPAP: No Cardiac: Yes (STENT X2) Coronary Artery Disease, High Cholesterol, Hypertension, Irregular Heartbeat, Palpitations Neurological: No Reproductive Disorders: No Sexually Transmitted Disease: No HIV/AIDS: No Genitourinary: No Gastrointestinal: Yes Gastroesophageal Reflux, Diverticulosis Musculoskeletal: Yes (BACK SURGERY; L1 COMPRESSION FX WITH KYPHOPLASTY 01/2015;SPINAL STENOSIS ) Chronic Back Pain Endocrine: No HEENT: Yes (READING GLASSES) Loss of Vision: Denies Hearing Impairment: Hard of Hearing Cancer: No Psychosocial: Yes Anxiety Integumentary: No Blood Disorders: Yes (tularemia) Adverse Reaction/Blood Tranf: No Family Medical History No Pertinent Family Hx SOCIAL HISTORY: -SMOKING -ETOH -DRUGS PAST SURGICAL HISTORY: -CARDIAC CATH 07/22/[address] WOOD: IMPRESSION: 1. Mild systemic hypertension. 2. Patent stents in the mid and distal segment of the left anterior descending coronary artery with a 50% stenosis in the proximal segment of the vessel. 3. The right coronary artery is dominant contained mild disease. 4. The patient is known to have normal left ventricular systolic function with an estimated ejection fraction of 60% by echocardiogram obtained on 12/21/2020 Physical Exam Vital Signs Vital Signs - First Documented 10/23/21 19:01 Temp 36.2 Pulse 82 Resp 18 B/P (MAP) 146/72 (96) Pulse Ox 97 Capillary Refill : Less Than 3 Seconds Height, Weight, BMI Height: 6'0.00" Weight: 190lbs. 0.0oz. 86.954387gu; 26.00 BMI Method:Stated General Appearance: No Apparent Distress, WD/WN, Other (DOES NOT APPEAR ILL OR TO BE IN ANY DISCOMFORT OR DISTRESS) HEENT: PERRL/EOMI, Moist Mucous Membranes Neck: Normal Inspection Respiratory: Normal Breath Sounds, No Accessory Muscle Use, No Respiratory Distress Cardiovascular: Regular Rate, Rhythm, No Edema, No JVD, No Murmur, Normal P eripheral Pulses Gastrointestinal: Non Tender, Soft Extremity: Normal Capillary Refill, Normal Inspection, Normal Range of Motion, Non Tender, No Calf Tenderness, No Pedal Edema Neurologic/Psychiatric: Alert, Oriented x3, No Motor/Sensory Deficits, 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, 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 Norm as Tested Skin: Normal Color, Warm/Dry; No Rash; Other (SKIN VERY TANNED) Progress/Results/Core Measures Suspected Sepsis SIRS Temperature: Pulse: 82 Respiratory Rate: 18 Laboratory Tests 10/23/21 18:57: White Blood Count 8.0 Blood Pressure 146 /72 Mean: 96 Laboratory Tests 10/23/21 18:57: Creatinine 0.97, Platelet Count 239, Total Bilirubin 0.6 Results/Orders Lab Results Laboratory Tests Test 10/23/21 18:57 10/23/21 19:25 10/23/21 19:35 Range/Units White Blood Count 8.0 4.3-11.0 10^3/uL Red Blood Count 4.16 L 4.30-5.52 10^6/uL Hemoglobin 13.0 L 13.3-17.7 g/dL Hematocrit 37 L 40-54 % Mean Corpuscular Volume 89 80-99 fL Mean Corpuscular Hemoglobin 31 25-34 pg Mean Corpuscular Hemoglobin Concent 35 32-36 g/dL Red Cell Distribution Width 12.8 10.0-14.5 % Platelet Count 239 130-400 10^3/uL Mean Platelet Volume 10.6 9.0-12.2 fL Immature Granulocyte % (Auto) 1 % Neutrophils (%) (Auto) 68 42-75 % Lymphocytes (%) (Auto) 21 12-44 % Monocytes (%) (Auto) 8 0-12 % Eosinophils (%) (Auto) 3 0-10 % Basophils (%) (Auto) 0 0-10 % Neutrophils # (Auto) 5.5 1.8-7.8 10^3/uL Lymphocytes # (Auto) 1.6 1.0-4.0 10^3/uL Monocytes # (Auto) 0.6 0.0-1.0 10^3/uL Eosinophils # (Auto) 0.2 0.0-0.3 10^3/uL Basophils # (Auto) 0.0 0.0-0.1 10^3/uL Immature Granulocyte # (Auto) 0.0 0.0-0.1 10^3/uL Sodium Level 137 135-145 MMOL/L Potassium Level 4.2 3.6-5.0 MMOL/L Chloride Level 106 98-107 MMOL/L Carbon Dioxide Level 18 L 21-32 MMOL/L Anion Gap 13 5-14 MMOL/L Blood Urea Nitrogen 23 H 7-18 MG/DL Creatinine 0.97 0.60-1.30 MG/DL Estimat Glomerular Filtration Rate 87 BUN/Creatinine Ratio 24 Glucose Level 140 H 70-105 MG/DL Calcium Level 9.2 8.5-10.1 MG/DL Corrected Calcium 9.2 8.5-10.1 MG/DL Magnesium Level 1.4 L 1.6-2.4 MG/DL Total Bilirubin 0.6 0.1-1.0 MG/DL Aspartate Amino Transf (AST/SGOT) 20 5-34 U/L Alanine Aminotransferase (ALT/SGPT) 25 0-55 U/L Alkaline Phosphatase 86 40-136 U/L Total Creatine Kinase 54 30-200 U/L Creatine Kinase MB 2.0 <6.6 NG/ML Myoglobin 31.1 10.0-92.0 NG/ML Total Protein 6.4 6.4-8.2 GM/DL Albumin 4.0 3.2-4.5 GM/DL TSH [place] Testing 2.99 0.35-4.94 UIU/ML Serum Alcohol < 10 <10 MG/DL Influenza Type A (RT-PCR) Not Detected Not Detecte Influenza Type B (RT-PCR) Not Detected Not Detecte SARS-CoV-2 RNA (RT-PCR) Not Detected Not Detecte Urine Color YELLOW Urine Clarity CLEAR Urine pH 6.5 5-9 Urine Specific [place] 1.010 L 1.016-1.022 Urine Protein NEGATIVE NEGATIVE Urine Glucose (UA) NEGATIVE NEGATIVE Urine Ketones NEGATIVE NEGATIVE Urine Nitrite NEGATIVE NEGATIVE Urine Bilirubin NEGATIVE NEGATIVE Urine Urobilinogen 0.2 < = 1.0 MG/DL Urine Leukocyte Esterase NEGATIVE NEGATIVE Urine RBC (Auto) NEGATIVE NEGATIVE Urine RBC NONE /HPF Urine WBC RARE /HPF Urine Squamous Epithelial Cells RARE /HPF Urine Crystals NONE /LPF Urine Bacteria TRACE /HPF Urine Casts NONE /LPF Urine Mucus NEGATIVE /LPF Urine Culture Indicated NO Urine Opiates Screen NEGATIVE NEGATIVE Urine Oxycodone Screen NEGATIVE NEGATIVE Urine Methadone Screen NEGATIVE NEGATIVE Urine Propoxyphene Screen NEGATIVE NEGATIVE Urine Barbiturates Screen NEGATIVE NEGATIVE Ur Tricyclic Antidepressants Screen NEGATIVE NEGATIVE Urine Phencyclidine Screen NEGATIVE NEGATIVE Urine Amphetamines Screen NEGATIVE NEGATIVE Urine Methamphetamines Screen NEGATIVE NEGATIVE Urine Benzodiazepines Screen NEGATIVE NEGATIVE Urine Cocaine Screen NEGATIVE NEGATIVE Urine Cannabinoids Screen NEGATIVE NEGATIVE My Orders Orders - GABRIELA BLAIR DO Ed Iv/Invasive Line Start (10/23/21 19:22) Monitor-Rhythm Ecg Trace Only (10/23/21 19:22) Cbc With Automated Diff (10/23/21 19:22) Comprehensive Metabolic Panel (10/23/21 19:22) Magnesium (10/23/21 19:22) Ua Culture If Indicated (10/23/21 19:22) Covid 19 Inhouse Test (10/23/21 19:22) Influenza A And B By Pcr (10/23/21 19:22) Isolation Central Supply Req (10/23/21 19:22) Drug Screen Stat (Urine) (10/23/21 19:45) Magnesium 1 Gm/100 Ml Ivpb (Magnesium [place] (10/23/21 20:00) Ed Iv/Invasive Line Start (10/23/21 19:50) Lactated Ringers (Lr 1000 Ml Iv Solution (10/23/21 20:00) Alcohol (10/23/21 18:57) Creatine Kinase (10/23/21 18:57) Creatine Kinase Mb (10/23/21 18:57) Myoglobin Serum (10/23/21 18:57) Thyroid Analyzer (10/23/21 18:57) Ketorolac Injection (Toradol Injection) (10/23/21 20:00) Orphenadrine Inj (Ed Only) (Norflex Inje (10/23/21 20:00) Orphenadrine Inj (Ed Only) (Norflex Inje (10/23/21 20:13) Ketorolac Injection (Toradol Injection) (10/23/21 20:14) Lactated Ringers (Lr 1000 Ml Iv Solution (10/23/21 20:14) Medications Given in ED Current Medications Medications Dose Ordered Sig/Ankita Route Start Time Stop Time Status Last Admin Dose Admin Ketorolac Tromethamine 30 mg ONCE ONCE IVP 10/23/21 20:00 10/23/21 20:01 DC 10/23/21 20:20 30 MG Lactated Ringer's 1,000 ml @ 0 mls/hr Q0M ONCE IV 10/23/21 20:00 10/23/21 20:01 DC 10/23/21 20:19 1,000 MLS/HR Orphenadrine Citrate 60 mg ONCE ONCE IV 10/23/21 20:00 10/23/21 20:01 DC 10/23/21 20:22 60 MG Vital Signs/I&O 10/23/21 19:01 Temp 36.2 Pulse 82 Resp 18 B/P (MAP) 146/72 (96) Pulse Ox 97 Capillary Refill : Less Than 3 Seconds Blood Pressure Mean: 96 Progress Note : Progress Note GIVEN IV FLUIDS, TORADOL AND MAGNESIUM--SYMPTOMS COMPLETELY RESOLVED PT STATES HE HAS HAD PRIOR PROBLEMS WITH LOW MAGNESIUM, BUT IS NOT ABLE TO TOLERATE MORE THAN 125 MG A DAY, DUE TO DIARRHEA. Departure Impression Primary Impression: Muscle cramping Additional Impressions: Dehydration Hypomagnesemia Disposition: HOME, SELF-CARE Condition: Improved Departure-Patient Inst. Decision time for Depature: 21:35 Referrals: KALI DE LA GARZA MD (PCP/Family) Primary Care Physician Patient Instructions: Dehydration, Adult ED, Muscle Spasm ED, Low Magnesium Level (DC) Add. Discharge Instructions: KEEP COOL--STAY OUT OF THE HEAT AND SUN LOTS OF CLEAR LIQUIDS--WATER AND GATORADE TAKE MAGNESIUM--125 MG 2-3 TIMES A DAY IF POSSIBLE TYLENOL AND MOTRIN NEEDED FOR PAIN FOLLOW UP WITH DR. DE LA GARZA IN 2-3 DAYS FOR FURTHER CARE--CALL ON MONDAY TO SCHEDULE APPOINTMENT All discharge instructions reviewed with patient and/or family. Voiced understanding. GABRIELA BLAIR DO October 23, 2021 19:33
[2021-10-23 19:40] LABS: BILIRUBIN,URINE NEGATIVE (NEGATIVE); CLARITY,URINE CLEAR; COLOR,URINE YELLOW; GLUCOSE, URINE (UA) NEGATIVE (NEGATIVE); KETONES,URINE NEGATIVE (NEGATIVE); LEUKOCYTE ESTERASE ,URINE NEGATIVE (NEGATIVE); NITRITE,URINE NEGATIVE (NEGATIVE); PH,URINE 6.5 (5-9); PROTEIN,URINE NEGATIVE (NEGATIVE)
[2021-10-23 19:41] LABS: ALANINE AMINOTRANSFERASE 25 U/L (0-55); ALKALINE PHOSPHATASE 86 U/L (40-136); BILIRUBIN,TOTAL 0.6 MG/DL (0.1-1.0); BUN/CREATININE RATIO 24; CALCIUM 9.2 MG/DL (8.5-10.1); CARBON DIOXIDE 18 MMOL/L (21-32); CHLORIDE 106 MMOL/L (98-107); CREATININE SERUM 0.97 MG/DL (0.60-1.30); GFR ESTIMATED 87; GLUCOSE 140 MG/DL (70-105); MAGNESIUM 1.4 MG/DL (1.6-2.4); POTASSIUM 4.2 MMOL/L (3.6-5.0); SODIUM 137 MMOL/L (135-145); TOTAL PROTEIN 6.4 GM/DL (6.4-8.2)
[2021-10-23 19:45] LABS: BASOPHILS % (AUTO) 0 % (0-10); EOSINOPHILS # (AUTO) 0.2 10^3/uL (0.0-0.3); EOSINOPHILS % (AUTO) 3 % (0-10); HEMATOCRIT 37 % (40-54); LYMPHOCYTES # (AUTO) 1.6 10^3/uL (1.0-4.0); LYMPHOCYTES % (AUTO) 21 % (12-44); MEAN CORPUSCULAR HEMOGLOBIN 31 pg (25-34); MEAN CORPUSCULAR HGB CONC 35 g/dL (32-36); MEAN CORPUSCULAR VOLUME 89 fL (80-99); MEAN PLATELET VOLUME 10.6 fL (9.0-12.2); MONOCYTES # (AUTO) 0.6 10^3/uL (0.0-1.0); MONOCYTES % (AUTO) 8 % (0-12); NEUTROPHILS # (AUTO) 5.5 10^3/uL (1.8-7.8); NEUTROPHILS % (AUTO) 68 % (42-75); PLATELET COUNT 239 10^3/uL (130-400)
[2021-10-23 19:47] LABS: BACTERIA,URINE TRACE /HPF; WBC,URINE RARE /HPF
[2021-10-23 19:48] LABS: SQUAMOUS EPITHELIAL CELL,UR RARE /HPF
[2021-10-23] MEDS ORDERED: LACTATED RINGERS 1,000 ML IV ONE ×2 (20:00→20:14)
[2021-10-23] MEDS ORDERED: KETOROLAC 30 MG/ML VIAL IVP ONE (20:00)
[2021-10-23] MEDS ORDERED: ORPHENADRINE 60 MG/2 ML (NORFLEX) AMP (ED ONLY) IV ONE (20:00)
[2021-10-23 20:01] LABS: AMPHETAMINE SCREEN, URINE NEGATIVE (NEGATIVE); BARBITURATE SCREEN URINE NEGATIVE (NEGATIVE); BENZODIAZEPINES SCREEN URINE NEGATIVE (NEGATIVE); CANNABINOID SCREEN, URINE NEGATIVE (NEGATIVE); COCAINE SCREEN URINE NEGATIVE (NEGATIVE); METHADONE STAT NEGATIVE (NEGATIVE); OPIATE SCREEN URINE NEGATIVE (NEGATIVE); OXYCODONE STAT NEGATIVE (NEGATIVE); PROPOXYPHENE STAT NEGATIVE (NEGATIVE); TRICYCLIC ANTIDEPRESSANTS SCRE NEGATIVE (NEGATIVE)
[2021-10-23 20:02] LABS: CREATINE KINASE 54 U/L (30-200)
[2021-10-23] MEDS ORDERED: ORPHENADRINE 60 MG/2 ML (NORFLEX) AMP (ED ONLY) ONE (20:13)
[2021-10-23] MEDS ORDERED: KETOROLAC 30 MG/ML VIAL ONE (20:14)
[2021-10-23] MEDS: MAGNESIUM 1 GM/100 ML IVPB 100 ML IV SCH ×2 (20:19→21:03)
[2021-10-23 20:24] LABS: TSH (THYROID ANALYZER) 2.99 UIU/ML (0.35-4.94)
== END 2021-10-23 21:55 | disposition home or self-care (01) ==
LOC: EDUNIT# 18:11 → ER 18:12
DX: R25.2 Cramp and spasm (principal); E83.42 Hypomagnesemia; E86.0 Dehydration; R19.7 Diarrhea, unspecified; Z20.822 Contact with and (suspected) exposure to COVID-19
CPT/HCPCS: 80053; 80306; 81000; 82550; 82553; 83735; 83874; 84443; 85025; 87636; 99284; G0480; 36415; 80320

== ENCOUNTER → 2021-10-26 | Outpatient (CLI) | payer MEDICARE, MEDICAID ==
--- NOTE | 2021-10-26 09:37 | Diagnostic Imaging Report ---
INDICATION: [id number] TECHNIQUE: Multiple real-time grayscale sonographic images, color and duplex Doppler images were obtained of the urinary system. FINDINGS: Aortic velocity: 79 cm/sec. RIGHT kidney: Size: 12.2 x 5.8 x 6.0 cm The right renal parenchyma is with some generalized thinning. Small hypoechoic likely cyst lateral aspect 1.3 x 1.2 x 0.8 cm. The right renal artery is visualized in its proximal, mid and distal aspect. Maximum renal artery velocity: 126cm/sec Maximum renal artery/aortic ratio: 1.6 LEFT kidney: Size: 12 x 5.1 x 6.2 cm The left renal parenchyma is with some generalized thinning. Hypoechoic mass with vascularity at the mid inferior pole laterally 3.7 x 2.5 x 2.2 cm. The left renal artery is visualized in its proximal, mid and distal aspect. Maximum renal artery velocity: 199cm/sec Maximum renal artery/aortic ratio: 2.5 Bladder: Not imaged. IMPRESSION: 1. Generalized thinning the renal parenchyma both kidneys. 2. Probable right renal cyst. 3. Indeterminate hypoechoic vascularized mass left kidney. Neoplasm should be excluded. 4. Elevated velocity proximal left renal artery, borderline for potential renal artery stenosis. 5. Given findings, correlation with CTA of the abdomen would be recommended for further assessment of the renal arteries and renal mass. (RA/AO ratios > 3.0 may suggest potential hemodynamically significant stenosis.) Dictated by: Dictated on workstation # [id number]
== END ==
LOC: RAD 08:15
PROVIDERS: ATTEND Internal Medicine Cardiovascular Disease
DX: I10 Essential (primary) hypertension (principal); N28.9 Disorder of kidney and ureter, unspecified
CPT/HCPCS: 76770; 93975

== ENCOUNTER → 2021-10-28 | Outpatient (CLI) | payer MEDICARE, MEDICAID ==
[~2021-10-28] MED LIST changes: +CATHETER FLUSH 10 ML SYR IV PRN; +IOHEXOL 350 MG/ML 100 ML (OMNIPAQUE 350) VIAL IV ONE; +NS 100 ML (IVPB) BAG IV ONE
--- NOTE | 2021-10-28 11:49 | Diagnostic Imaging Report ---
PROCEDURE: CT Angio Abdomen/Pelvis with. TECHNIQUE: Multiple contiguous axial images were obtained through the abdomen and pelvis after the uneventful bolus administration of intravenous contrast. Sagittal and coronal MIP reconstructions with then performed. All CT scans use one or more of the following dose optimizing techniques: Automated exposure control, MA and/or KvP adjustment based on patient size and exam type or iterative reconstruction. INDICATION: Abnormal renal Doppler and ultrasound. COMPARISON: Exam is compared with abdominopelvic CT 01/01/2021. FINDINGS: There were no findings of a hemodynamically significant degree of renal arterial stenosis. There is an accessory artery to the lower pole of the right kidney off the distal infrarenal aorta. There is moderate stenosis owing to soft plaque in the proximal SMA narrowed by about 50% over its first 2 cm length. Beyond that segment, the vessel and its primary branches were all normal in caliber and were widely patent. The YAHAIRA is patent. The celiac and its primary branches are all widely patent. There were no findings of acute or chronic solid or hollow visceral end organ involvement by ischemia. No thrombus. There is no evidence for a renal mass. The adrenals are negative. The spleen is unremarkable. Gallbladder is surgically absent. No biliary ductal dilatation. The pancreas is negative. There is no abdominal mesenteric or retroperitoneal lymphadenopathy. There is diverticulosis at the sigmoid colon. There is a fatty left inguinal hernia as well as a right inguinal hernia comprised of noninflamed fat as well as a segment of unobstructed distal small bowel. No findings of strangulation. No bowel obstruction. No focal enteric inflammatory changes. There is bilateral common iliac atherosclerotic disease. The external iliacs are patent. The common femorals are patent. There is no abdominopelvic aneurysm, dissection, mural hematoma, or rupture. IMPRESSION: 1. Soft plaque results in mild stenosis of the proximal SMA. No thrombus or occlusive segment. Widely patent renal arteries with no evidence for solid or cystic renal mass and no hydronephrosis. 2. Noninflamed diverticulosis. 3. Bilateral inguinal hernias, fatty on the left and fatty and bowel containing on the right, without evidence for obstruction or strangulation. 4. Aortoiliac atherosclerotic disease without occlusion or stenosis. Dictated by: Dictated on workstation # [id number]
== END ==
LOC: RAD 10:49
PROVIDERS: ATTEND Internal Medicine Cardiovascular Disease
DX: K57.90 Diverticulosis of intestine, part unspecified, without perforation or abscess without bleeding (principal); K40.20 Bilateral inguinal hernia, without obstruction or gangrene, not specified as recurrent; I70.0 Atherosclerosis of aorta; Z90.49 Acquired absence of other specified parts of digestive tract; N28.89 Other specified disorders of kidney and ureter; I70.8 Atherosclerosis of other arteries
CPT/HCPCS: 74174

== ENCOUNTER → 2022-01-21 | Outpatient (CLI) | payer MEDICARE, MEDICAID ==
[~2022-01-21] MED LIST changes: -CATHETER FLUSH 10 ML SYR IV PRN; -IOHEXOL 350 MG/ML 100 ML (OMNIPAQUE 350) VIAL IV ONE; -NS 100 ML (IVPB) BAG IV ONE
== END ==
LOC: CARD 10:50
PROVIDERS: ATTEND Family Medicine
DX: I51.7 Cardiomegaly (principal); I35.8 Other nonrheumatic aortic valve disorders
CPT/HCPCS: 93306

== ENCOUNTER 2022-09-02 10:19 | Emergency (ER) | payer MEDICARE, OTHER, MEDICAID ==
[2022-09-02] MEDS ORDERED: LACTATED RINGERS 1,000 ML IV ONE (11:15)
[2022-09-02 11:16] LABS: BASOPHILS % (AUTO) 0 % (0-10); EOSINOPHILS # (AUTO) 0.6 10^3/uL (0.0-0.3); EOSINOPHILS % (AUTO) 8 % (0-10); HEMATOCRIT 36 % (40-54); HEMOGLOBIN 12.7 g/dL (13.3-17.7); LYMPHOCYTES # (AUTO) 1.4 10^3/uL (1.0-4.0); LYMPHOCYTES % (AUTO) 20 % (12-44); MEAN CORPUSCULAR HEMOGLOBIN 31 pg (25-34); MEAN CORPUSCULAR HGB CONC 35 g/dL (32-36); MEAN CORPUSCULAR VOLUME 87 fL (80-99); MONOCYTES # (AUTO) 0.7 10^3/uL (0.0-1.0); MONOCYTES % (AUTO) 10 % (0-12); NEUTROPHILS # (AUTO) 4.5 10^3/uL (1.8-7.8); NEUTROPHILS % (AUTO) 62 % (42-75); PLATELET COUNT 226 10^3/uL (130-400); WHITE BLOOD COUNT 7.3 10^3/uL (4.3-11.0)
[2022-09-02 11:24] LABS: ALBUMIN 4.1 GM/DL (3.2-4.5)
[2022-09-02 11:26] LABS: CALCIUM 9.7 MG/DL (8.5-10.1)
[2022-09-02 11:27] LABS: TOTAL PROTEIN 6.9 GM/DL (6.4-8.2)
[2022-09-02 11:29] LABS: BILIRUBIN,TOTAL 0.7 MG/DL (0.1-1.0)
[2022-09-02] MEDS ORDERED: NS IV 1000 ML 1,000 ML IV SCH (11:30)
[2022-09-02 11:31] LABS: CREATININE SERUM 0.81 MG/DL (0.60-1.30)
--- NOTE | 2022-09-02 11:33 | ED Lower Extremity ---
General Chief Complaint: Lower Extremity Stated Complaint: BILAT LEG PAIN | DIZZY | LIGHTHEADED Nursing Triage Note: PT AMB TO [facility] 2 WITH WITH C/O BILAT LEG CRAMPS X3 DAYS. PT SAW PCP AND HAD LABS DRAWN MONDAY AND SENT TO [place] FOR FLUIDS AND MAG YESTERDAY BUT NO RELIEF Source: patient Exam Limitations: no limitations History of Present Illness Date Seen by Provider: Sep 02, 2022 Time Seen by Provider: 11:09 Initial Comments 66-year-old male presents to the ED with complaints of leg cramps. States he has had the leg cramps for approximately 1 week, went to see his primary on Monday and had labs drawn. They sent him to [facility] due to low sodium and low magnesium. States he received fluids and magnesium while in the ER. He states he felt better after this, and was able to work yesterday without issues. Reports leg cramping started again last night. He states the cramping can last up to 5 minutes at a time. Reports the leg cramping is usually in his calfs, but sometimes travels all the way up into his thighs. 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 Reports he tries to drink water, Pedialyte, and liquid IV. Reports he has had issues with low sodium in the past. Has not had to be placed on sodium tablets. He also reports chronic shortness of breath, states it seems to be worse when his sodium is low. States he has had normal pulmonary function tests. He currently has a heart monitor b ecause he reports occasional skipped beats. He currently takes Cardizem, but denies history of atrial fibrillation or atrial flutter. His magnetic resonance technologist is Dr. Lopez in [place]. Denies fevers, chest pain, abdominal pain, nausea, vomiting, diarrhea. Allergies and Home Medications Allergies Coded Allergies: levofloxacin (Unverified Allergy, Mild, LEG/ BONE PAIN, 11/26/18) Sulfa (Sulfonamide Antibiotics) (Verified Allergy, Unknown, 11/26/18) dextromethorphan (Verified Allergy, Unknown, 11/26/18) meperidine (Unverified Adverse Reaction, Unknown, 11/26/18) Patient Home Medication List Home Medication List Reviewed: Yes ALPRAZolam (ALPRAZolam) 0.25 Mg Tablet, 0.25 MG PO BID PRN for ANXIETY, (Reported) Entered as Reported by: NAS TEJADA on 07/22/21925 Aspirin (Aspirin EC) 81 Mg Tablet.dr, 81 MG PO DAILY, (Reported) Entered as Reported by: NAS TEJADA on 07/22/21918 Cetirizine HCl (Zyrtec) 10 Mg Tablet, 10 MG PO DAILY, (Reported) Entered as Reported by: NAS TEJADA on 07/22/21918 Clonidine (Catapres-TTS 2 Patch) 1 Each Patch.tdwk, 1 EACH TD Q7D PRN for BLOOD PRESSURE, (Reported) Entered as Reported by: NAS TEJADA on 07/22/21925 Diltiazem HCl (Diltiazem 24Hr ER) 180 Mg Cap.er.24h, 180 MG PO DAILY, (Reported) Entered as Reported by: NAS TEJADA on 07/22/21918 Losartan Potassium (Losartan Potassium) 100 Mg Tablet, 100 MG PO DAILY, (Reported) Entered as Reported by: NAS TEJADA on 07/22/21918 Omeprazole (Omeprazole) 40 Mg Capsule.dr, 40 MG PO DAILY, (Reported) Entered as Reported by: NAS TEJADA on 07/22/21918 Tamsulosin HCl (Flomax) 0.4 Mg Cap, 0.4 MG PO DAILY, (Reported) Entered as Reported by: NAS TEJADA on 07/22/21918 [C/D3/Zinc] , 1 TAB PO DAILY, (Reported) Entered as Reported by: NAS TEJADA on 07/22/21918 Review of Systems Constitutional: see HPI Past Poqioze-Xkilyx-Gfisto Hx Patient Social History Tobacco Use?: No Use of E-Cig and/or Vaping dev: No Substance use?: No Alcohol Use?: Yes Alcohol type: Beer Alcohol Frequency: Couple times a week Pt feels they are or have been: No Immunizations Up To Date Influenza Vaccine Up-to-Date: No; Not Current Seasonal Allergies Seasonal Allergies: No Past Medical History Surgery/Hospitalization HX: ABD HERNIA, APPY, MANSI, CARDIAC STENTS, LOWER BACK, CAD, PALPITATIONS, GERD, DIVERTICULOSIS. Surgeries: Yes (BACK, HERNIAS, FACE LACERATION, ) Abdominal, Appendectomy, Cardiac, Coronary Stent, Gallbladder, Orthopedic Respiratory: No (COVID -19 [place] 04/2020--NO HOSPITALIZATION OR TREATMENT) Currently Using CPAP: No Currently Using BIPAP: No Cardiac: Yes (STENT X2) Coronary Artery Disease, High Cholesterol, Hypertension, Irregular Heartbeat, Palpitations Neurological: No Reproductive Disorders: No Sexually Transmitted Disease: No HIV/AIDS: No Genitourinary: No Gastrointestinal: Yes Gastroesophageal Reflux, Diverticulosis Musculoskeletal: Yes (BACK SURGERY; L1 COMPRESSION FX WITH KYPHOPLASTY 01/2015;SPINAL STENOSIS ) Chronic Back Pain Endocrine: No HEENT: Yes (READING GLASSES) Loss of Vision: Denies Hearing Impairment: Hard of Hearing Cancer: No Psychosocial: Yes Anxiety Integumentary: No Blood Disorders: Yes (tularemia) Adverse Reaction/Blood Tranf: No Family Medical History No Pertinent Family Hx SOCIAL HISTORY: -SMOKING -ETOH -DRUGS PAST SURGICAL HISTORY: -CARDIAC CATH 07/22/[address] WOOD: IMPRESSION: 1. Mild systemic hypertension. 2. Patent stents in the mid and distal segment of the left anterior descending coronary artery with a 50% stenosis in the proximal segment of the vessel. 3. The right coronary artery is dominant contained mild disease. 4. The patient is known to have normal left ventricular systolic function with an estimated ejection fraction of 60% by echocardiogram obtained on 12/21/2020 Physical Exam Vital Signs Vital Signs - First Documented 09/02/22 09/02/22 10:29 14:21 Temp 36.6 Pulse 58 Resp 16 B/P (MAP) 167/85 (112) Pulse Ox 99 O2 Delivery Room Air Capillary Refill : Height, Weight, BMI Height: 6'0.00" Weight: 190lbs. 0.0oz. 86.930412mc; 26.00 BMI Method:Stated General Appearance: WD/WN, no apparent distress Neck: supple, normal inspection Cardiovascular: regular rate, rhythm, no edema, no gallop, no JVD, no murmur Respiratory: lungs clear, normal breath sounds, no respiratory distress, no accessory muscle use Legs: bilateral leg non-tender, bilateral leg normal inspection, bilateral leg normal range of motion, bilateral leg no evidence of injury, bilateral leg other (No cramping noted at this time) Neurologic/Psychiatric: alert, normal mood/affect Skin: normal color, warm/dry Progress/Results/Core Measures Results/Orders Lab Results Laboratory Tests Test 09/02/22 10:40 Range/Units White Blood Count 7.3 4.3-11.0 10^3/uL Red Blood Count 4.15 L 4.30-5.52 10^6/uL Hemoglobin 12.7 L 13.3-17.7 g/dL Hematocrit 36 L 40-54 % Mean Corpuscular Volume 87 80-99 fL Mean Corpuscular Hemoglobin 31 25-34 pg Mean Corpuscular Hemoglobin Concent 35 32-36 g/dL Red Cell Distribution Width 13.9 10.0-14.5 % Platelet Count 226 130-400 10^3/uL Mean Platelet Volume 10.0 9.0-12.2 fL Immature Granulocyte % (Auto) 1 % Neutrophils (%) (Auto) 62 42-75 % Lymphocytes (%) (Auto) 20 12-44 % Monocytes (%) (Auto) 10 0-12 % Eosinophils (%) (Auto) 8 0-10 % Basophils (%) (Auto) 0 0-10 % Neutrophils # (Auto) 4.5 1.8-7.8 10^3/uL Lymphocytes # (Auto) 1.4 1.0-4.0 10^3/uL Monocytes # (Auto) 0.7 0.0-1.0 10^3/uL Eosinophils # (Auto) 0.6 H 0.0-0.3 10^3/uL Basophils # (Auto) 0.0 0.0-0.1 10^3/uL Immature Granulocyte # (Auto) 0.1 0.0-0.1 10^3/uL Sodium Level 135 135-145 MMOL/L Potassium Level 4.0 3.6-5.0 MMOL/L Chloride Level 103 98-107 MMOL/L Carbon Dioxide Level 24 21-32 MMOL/L Anion Gap 8 5-14 MMOL/L Blood Urea Nitrogen 13 7-18 MG/DL Creatinine 0.81 0.60-1.30 MG/DL Estimat Glomerular Filtration Rate 97 BUN/Creatinine Ratio 16 Glucose Level 95 70-105 MG/DL Calcium Level 9.7 8.5-10.1 MG/DL Corrected Calcium 9.6 8.5-10.1 MG/DL Magnesium Level 1.5 L 1.6-2.4 MG/DL Total Bilirubin 0.7 0.1-1.0 MG/DL Aspartate Amino Transf (AST/SGOT) 21 5-34 U/L Alanine Aminotransferase (ALT/SGPT) 26 0-55 U/L Alkaline Phosphatase 75 40-136 U/L Total Protein 6.9 6.4-8.2 GM/DL Albumin 4.1 3.2-4.5 GM/DL My Orders Orders - SAMUEL HAYES APRN Cbc With Automated Diff (09/02/22 11:08) Comprehensive Metabolic Panel (09/02/22 11:08) Magnesium (09/02/22 11:08) Ed Iv/Invasive Line Start (09/02/22 11:08) Lactated Ringers (Lr 1000 Ml Iv Solution (09/02/22 11:15) Ed Iv/Invasive Line Start (09/02/22 11:23) Ns Iv 1000 Ml (Sodium Chloride 0.9%) (09/02/22 11:30) Magnesium 1 Gm/100 Ml Ivpb (Magnesium [place] (09/02/22 12:00) Medications Given in ED Current Medications Medications Dose Ordered Sig/Ankita Route Start Time Stop Time Status Last Admin Dose Admin Lactated Ringer's 1,000 ml @ 0 mls/hr Q0M ONCE IV 09/02/22 11:15 09/02/22 11:24 DC 09/02/22 11:19 1,000 MLS/HR Vital Signs/I&O 09/02/22 09/02/22 10:29 14:21 Temp 36.6 36.6 Pulse 58 61 Resp 16 16 B/P (MAP) 167/85 (112) 151/83 Pulse Ox 99 O2 Delivery Room Air Blood Pressure Mean: 112 Progress Progress Note : Time: 11:33 Progress Note Patient seen and evaluated, resting comfortably, no acute distress. Based on exam and symptoms, concern for low sodium and magnesium level again. CBC, CMP, and magnesium level ordered. Normal saline ordered. 1202 labs reviewed. CBC shows decreased RBC 4.15, decreased hemoglobin 12.7, decreased hematocrit 36. CMP shows normal sodium 135. Low magnesium 1.5. Replace magnesium ordered. Labs reviewed with patient. 1400 discussed magnesium replacement options for patient. Magnesium glycinate less likely to cause diarrhea. Patient thinks he may be taking magnesium citrate, but is unsure. Discussed with patient that his omeprazole might be the reason for his low magnesium level. Patient is scheduled to see his GI doctor next week and will discuss this with him. Discharge instructions and return precautions provided. Departure Impression Primary Impression: Muscle cramping Additional Impression: Hypomagnesemia Disposition: HOME, SELF-CARE Condition: Stable Departure-Patient Inst. Decision time for Depature: 14:01 Referrals: KALI DUNBAR MD (PCP/Family) Primary Care Physician Patient Instructions: Muscle Spasms (DC) Add. Discharge Instructions: Try taking magnesium glycinate 350mg. You may also try magnesium oxide 400 mg, although this one may cause diarrhea. You should also add salt to your diet. Call Dr. Dunbar's office today to schedule an appointment for next week. Follow-up with your GI doctor as scheduled. Discussed with your GI doctor your low magnesium, and your omeprazole. You may also look for Tums that contains magnesium to help with GERD symptoms. Return for any new, concerning, or worsening symptoms. All discharge instructions reviewed with patient and/or family. Voiced understanding. SAMUEL HAYES APRN Sep 02, 2022 11:33
[2022-09-02 11:34] LABS: MAGNESIUM 1.5 MG/DL (1.6-2.4)
[2022-09-02] MEDS: MAGNESIUM 1 GM/100 ML IVPB 100 ML IV SCH ×2 (12:34→13:15)
[2022-09-02 14:21] VITALS: BP 151/83
== END 2022-09-02 14:21 | disposition home or self-care (01) ==
LOC: EDUNIT# 10:19 → ER 10:21
DX: E83.42 Hypomagnesemia (principal); I10 Essential (primary) hypertension; K21.9 Gastro-esophageal reflux disease without esophagitis; Z79.899 Other long term (current) drug therapy; Z95.5 Presence of coronary angioplasty implant and graft
CPT/HCPCS: 36415; 80053; 83735; 85025

== ENCOUNTER 2022-09-07 10:21 | Emergency (ER) | payer MEDICARE, OTHER, MEDICAID ==
[2022-09-07 11:11] LABS: BASOPHILS % (AUTO) 0 % (0-10); EOSINOPHILS # (AUTO) 0.5 10^3/uL (0.0-0.3); EOSINOPHILS % (AUTO) 7 % (0-10); HEMATOCRIT 36 % (40-54); HEMOGLOBIN 12.6 g/dL (13.3-17.7); LYMPHOCYTES # (AUTO) 1.1 10^3/uL (1.0-4.0); LYMPHOCYTES % (AUTO) 15 % (12-44); MEAN CORPUSCULAR HEMOGLOBIN 30 pg (25-34); MEAN CORPUSCULAR HGB CONC 35 g/dL (32-36); MEAN CORPUSCULAR VOLUME 86 fL (80-99); MEAN PLATELET VOLUME 9.3 fL (9.0-12.2); MONOCYTES # (AUTO) 0.7 10^3/uL (0.0-1.0); MONOCYTES % (AUTO) 10 % (0-12); NEUTROPHILS # (AUTO) 4.8 10^3/uL (1.8-7.8); NEUTROPHILS % (AUTO) 66 % (42-75); PLATELET COUNT 248 10^3/uL (130-400); WHITE BLOOD COUNT 7.3 10^3/uL (4.3-11.0)
[2022-09-07] MEDS ORDERED: NS IV 1000 ML 1,000 ML IV STA ×2 (11:14→11:34)
--- NOTE | 2022-09-07 11:17 | ED General ---
General Chief Complaint: General Problems/Pain Stated Complaint: LEG CRAMPS | LOW SODIUM LEVEL Nursing Triage Note: PT AMB TO RM 8 WITH SPOUSE WITH C/O DIZZY, NAUSEA AND LEG CRAMPS. PT HAD SODIUM LEVEL DRAWN YESTERDAY AT [facility] LAB AND IT WAS 131, NO MAG LEVEL DRAWN Source of Information: Patient Exam Limitations: No Limitations History of Present Illness Date Seen by Provider: Sep 07, 2022 Time Seen by Provider: 11:15 Initial Comments Patient is a 66-year-old male who presents the ED with leg cramps. Leg cramps started yesterday afternoon and has been constant throughout the evening last night and this morning. History of leg cramps for several months. Patient states last Monday he had abnormal lab work with low sodium and magnesium. Went to [facility] and had a bag of fluid and magnesium. Patient was seen here Monday received IV normal saline fluids and 2 bags of magnesium. Had blood test drawn yesterday had a sodium of 130. Patient states his primary care physician is aware of his abnormal electrolytes. Denies of any diuretics, vomiting, diarrhea. Had some mild dizziness today. Denies chest pain, cough, shortness of breath, weight loss, fevers, back pain, lower extremity swelling, bruising or redness. Patient denies of any urinary symptoms Allergies and Home Medications Allergies Coded Allergies: levofloxacin (Unverified Allergy, Mild, LEG/ BONE PAIN, 11/26/18) Sulfa (Sulfonamide Antibiotics) (Verified Allergy, Unknown, 11/26/18) dextromethorphan (Verified Allergy, Unknown, 11/26/18) meperidine (Unverified Adverse Reaction, Unknown, 11/26/18) Patient Home Medication List Home Medication List Reviewed: Yes ALPRAZolam (ALPRAZolam) 0.25 Mg Tablet, 0.25 MG PO BID PRN for ANXIETY, (Reported) Entered as Reported by: NAS TEJADA on 07/22/21925 Aspirin (Aspirin EC) 81 Mg Tablet.dr, 81 MG PO DAILY, (Reported) Entered as Reported by: NAS TEJADA on 07/22/21918 Cetirizine HCl (Zyrtec) 10 Mg Tablet, 10 MG PO DAILY, (Reported) Entered as Reported by: NAS TEJADA on 07/22/21918 Clonidine (Catapres-TTS 2 Patch) 1 Each Patch.tdwk, 1 EACH TD Q7D PRN for BLOOD PRESSURE, (Reported) Entered as Reported by: NAS TEJADA on 07/22/21925 Diltiazem HCl (Diltiazem 24Hr ER) 180 Mg Cap.er.24h, 180 MG PO DAILY, (Reported) Entered as Reported by: NAS TEJADA on 07/22/21918 Losartan Potassium (Losartan Potassium) 100 Mg Tablet, 100 MG PO DAILY, (Reported) Entered as Reported by: NAS TEAJDA on 07/22/21918 Omeprazole (Omeprazole) 40 Mg Capsule.dr, 40 MG PO DAILY, (Reported) Entered as Reported by: NAS TEJADA on 07/22/21918 Tamsulosin HCl (Flomax) 0.4 Mg Cap, 0.4 MG PO DAILY, (Reported) Entered as Reported by: NAS TEJADA on 07/22/21918 [C/D3/Zinc] , 1 TAB PO DAILY, (Reported) Entered as Reported by: NAS TEJADA on 07/22/21918 Review of Systems Review of Systems Constitutional: No chills, No diaphoresis, No malaise, No weakness EENTM: No ear pain, No blurred vision, No double vision Respiratory: No cough Cardiovascular: No chest pain Gastrointestinal: No abdominal pain, No diarrhea, No nausea, No vomiting Genitourinary: No decreased output, No discharge Musculoskeletal: No back pain, No joint pain; muscle pain, other (Muscle cramping) Skin: No change in color, No change in hair/nails All Other Systems Reviewed Negative Unless Noted: Yes Past Dhyxouq-Odtpeu-Fhyzrl Hx Patient Social History Tobacco Use?: No Substance use?: No Alcohol Use?: Yes Alcohol type: Beer Alcohol Frequency: Couple times a week Pt feels they are or have been: No Seasonal Allergies Seasonal Allergies: No Past Medical History Surgery/Hospitalization HX: ABD HERNIA, APPY, MANSI, CARDIAC STENTS, LOWER BACK, CAD, PALPITATIONS, GERD, DIVERTICULOSIS. Surgeries: Yes (BACK, HERNIAS, FACE LACERATION, ) Abdominal, Appendectomy, Cardiac, Coronary Stent, Gallbladder, Orthopedic Respiratory: No (COVID -19 [place] 04/2020--NO HOSPITALIZATION OR TREATMENT) Currently Using CPAP: No Currently Using BIPAP: No Cardiac: Yes (STENT X2) Coronary Artery Disease, High Cholesterol, Hypertension, Irregular Heartbeat, Palpitations Neurological: No Reproductive Disorders: No Sexually Transmitted Disease: No HIV/AIDS: No Genitourinary: No Gastrointestinal: Yes Gastroesophageal Reflux, Diverticulosis Musculoskeletal: Yes (BACK SURGERY; L1 COMPRESSION FX WITH KYPHOPLASTY 01/2015;SPINAL STENOSIS ) Chronic Back Pain Endocrine: No HEENT: Yes (READING GLASSES) Loss of Vision: Denies Hearing Impairment: Hard of Hearing Cancer: No Psychosocial: Yes Anxiety Integumentary: No Blood Disorders: Yes (tularemia) Adverse Reaction/Blood Tranf: No Family Medical History No Pertinent Family Hx SOCIAL HISTORY: -SMOKING -ETOH -DRUGS PAST SURGICAL HISTORY: -CARDIAC CATH 07/22/[address] WOOD: IMPRESSION: 1. Mild systemic hypertension. 2. Patent stents in the mid and distal segment of the left anterior descending coronary artery with a 50% stenosis in the proximal segment of the vessel. 3. The right coronary artery is dominant contained mild disease. 4. The patient is known to have normal left ventricular systolic function with an estimated ejection fraction of 60% by echocardiogram obtained on 12/21/2020 Physical Exam Vital Signs Vital Signs - First Documented 09/07/22 09/07/22 10:50 14:19 Temp 36.2 Pulse 72 Resp 14 B/P (MAP) 120/68 (85) Pulse Ox 98 O2 Delivery Room Air Capillary Refill : Height, Weight, BMI Height: 6'0.00" Weight: 190lbs. 0.0oz. 86.460082yk; 26.00 BMI Method:Stated General Appearance: No Apparent Distress, WD/WN Eyes: Bilateral Eye Normal Inspection, Bilateral Eye PERRL, Bilateral Eye EOMI HEENT: PERRL/EOMI, TMs Normal, Normal ENT Inspection, Pharynx Normal Neck: Full Range of Motion, Normal Inspection, Non Tender, Supple Respiratory: Chest Non Tender, Lungs Clear, Normal Breath Sounds, No Accessory Muscle Use, No Respiratory Distress Cardiovascular: Regular Rate, Rhythm, No Edema, No Gallop, No JVD Gastrointestinal: Normal Bowel Sounds, No Organomegaly, No Pulsatile Mass Extremity: Normal Capillary Refill, Normal Inspection, Normal Range of Motion, Non Tender, No Calf Tenderness Neurologic/Psychiatric: Alert, Oriented x3, No Motor/Sensory Deficits, 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, 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 Skin: Normal Color, Warm/Dry Progress/Results/Core Measures Suspected Sepsis SIRS Temperature: Pulse: 72 Respiratory Rate: 14 Laboratory Tests 09/07/22 11:03: White Blood Count 7.3 Blood Pressure 120 /68 Mean: 85 Laboratory Tests 09/07/22 11:03: Creatinine 0.79, Platelet Count 248, Total Bilirubin 0.9 Results/Orders Lab Results Laboratory Tests Test 09/07/22 11:03 09/07/22 11:53 Range/Units White Blood Count 7.3 4.3-11.0 10^3/uL Red Blood Count 4.19 L 4.30-5.52 10^6/uL Hemoglobin 12.6 L 13.3-17.7 g/dL Hematocrit 36 L 40-54 % Mean Corpuscular Volume 86 80-99 fL Mean Corpuscular Hemoglobin 30 25-34 pg Mean Corpuscular Hemoglobin Concent 35 32-36 g/dL Red Cell Distribution Width 13.9 10.0-14.5 % Platelet Count 248 130-400 10^3/uL Mean Platelet Volume 9.3 9.0-12.2 fL Immature Granulocyte % (Auto) 1 % Neutrophils (%) (Auto) 66 42-75 % Lymphocytes (%) (Auto) 15 12-44 % Monocytes (%) (Auto) 10 0-12 % Eosinophils (%) (Auto) 7 0-10 % Basophils (%) (Auto) 0 0-10 % Neutrophils # (Auto) 4.8 1.8-7.8 10^3/uL Lymphocytes # (Auto) 1.1 1.0-4.0 10^3/uL Monocytes # (Auto) 0.7 0.0-1.0 10^3/uL Eosinophils # (Auto) 0.5 H 0.0-0.3 10^3/uL Basophils # (Auto) 0.0 0.0-0.1 10^3/uL Immature Granulocyte # (Auto) 0.1 0.0-0.1 10^3/uL Sodium Level 129 L 135-145 MMOL/L Potassium Level 4.2 3.6-5.0 MMOL/L Chloride Level 96 L 98-107 MMOL/L Carbon Dioxide Level 24 21-32 MMOL/L Anion Gap 9 5-14 MMOL/L Blood Urea Nitrogen 14 7-18 MG/DL Creatinine 0.79 0.60-1.30 MG/DL Estimat Glomerular Filtration Rate 98 BUN/Creatinine Ratio 18 Glucose Level 98 70-105 MG/DL Calcium Level 9.5 8.5-10.1 MG/DL Corrected Calcium 9.3 8.5-10.1 MG/DL Phosphorus Level 3.4 2.3-4.7 MG/DL Magnesium Level 1.4 L 1.6-2.4 MG/DL Total Bilirubin 0.9 0.1-1.0 MG/DL Aspartate Amino Transf (AST/SGOT) 15 5-34 U/L Alanine Aminotransferase (ALT/SGPT) 21 0-55 U/L Alkaline Phosphatase 70 40-136 U/L Total Protein 7.0 6.4-8.2 GM/DL Albumin 4.2 3.2-4.5 GM/DL Thyroid Stimulating Hormone (TSH) 1.63 0.35-4.94 UIU/ML Urine Color YELLOW Urine Clarity CLEAR Urine pH 7.0 5-9 Urine Specific Lorenzo 1.020 1.016-1.022 Urine Protein 1+ H NEGATIVE Urine Glucose (UA) NEGATIVE NEGATIVE Urine Ketones TRACE H NEGATIVE Urine Nitrite NEGATIVE NEGATIVE Urine Bilirubin 1+ H NEGATIVE Urine Urobilinogen 1.0 < = 1.0 MG/DL Urine Leukocyte Esterase NEGATIVE NEGATIVE Urine RBC (Auto) NEGATIVE NEGATIVE Urine RBC RARE /HPF Urine WBC RARE /HPF Urine Squamous Epithelial Cells RARE /HPF Urine Crystals NONE /LPF Urine Bacteria TRACE /HPF Urine Casts NONE /LPF Urine Mucus MODERATE H /LPF Urine Other FEW SPERM H /HPF Urine Culture Indicated NO My Orders Orders - ANICETO BAR Cbc With Automated Diff (09/07/22 10:55) Comprehensive Metabolic Panel (09/07/22 10:55) Magnesium (09/07/22 10:55) Urinalysis (09/07/22 10:55) Phosphorus (09/07/22 10:57) Ns Iv 1000 Ml (Sodium Chloride 0.9%) (09/07/22 11:14) Ns Iv 1000 Ml (Sodium Chloride 0.9%) (09/07/22 11:34) Magnesium Oxide Tablet (Mag Ox Tablet) (09/07/22 11:45) Thyroid Stimulating Hormone (09/07/22 11:40) Osmolality Urine (09/07/22 12:31) Medications Given in ED Current Medications Medications Dose Ordered Sig/Ankita Route Start Time Stop Time Status Last Admin Dose Admin Magnesium Oxide 400 mg ONCE ONCE PO 09/07/22 11:45 09/07/22 11:46 DC 09/07/22 11:49 400 MG Vital Signs/I&O 09/07/22 09/07/22 10:50 14:19 Temp 36.2 Pulse 72 65 Resp 14 18 B/P (MAP) 120/68 (85) 152/88 Pulse Ox 98 O2 Delivery Room Air Capillary Refill : Blood Pressure Mean: 85 Departure Communication (PCP) Reviewed previous H&P, lab testing, history, work-ups. Patient has been seen here few different times for lower leg muscle cramping with history of hyponatremia, hypomagnesia. I Was able to find previous visits from 2018. Primary care physician Dr. Dunbar. States he has had a work-up regarding his low sodium. Seem to occur after he suffered from a tick bite tularemia. Patient states he has been drinking Gatorade, Pedialyte, water. Currently on a magnesium glycinate supplement 250 mg daily. Denies sodium tablets. Patient with leg cramping over the past 2 days. Patient was seen here Monday received 2g of magnesium and liter of fluid. Patient Was seen at [facility] last Monday received IV fluid and 1g magnesium. Patient states typically his symptoms resolved after fluids and magnesium but appears to be getting worse over the past few weeks. Due to current presentation CBC, CMP, phosphorus, magnesium, urinalysis was ordered. CBC showed normal white blood count, hemoglobin 12.9. Potassium normal, sodium 129, chloride 94. Normal phosphorus, magnesium 1.4. Patient Was given oral magnesium 400 mg magnesium oxide. Patient vital signs stable. He is not currently on a diuretic. Denies vomiting or diarrhea. Normal kidney function. This does not appear to be secondary to diuretic or kidney disease. No evidence of third space loss. No known history of aldosterone deficiency. Did add urine osmolality and urine sodium. We will have to follow-up with results from primary care physician. no history of cirrhosis or CHF. Did check a thyroid which was unremarkable. He is not hyperglycemic. Wonder if this is some form of euvolemic hyponatremia. Patient was started on a liter of fluid here. Patient does not appear to have moderate or severe symptoms so did not use any hypertonic saline at this time. I do think patient needs further work-up. Other potential causes glucocorticoid deficiency, SIADH. Patient was given a second liter of fluid at a lower rate. Patient was observed here for 3 hours. Cramping improved. Patient has a scheduled follow-up with his primary care physician next week. Discussed further evaluation. Discussed sodium tablets decrease fluid restriction such as water. Continue monitoring blood pressure. Continue with magnesium may increase this to 50 mg dose to twice daily for the next 2 or 3 days. If any worsening cramping or symptoms return back to ED. Impression Primary Impression: Muscle cramping Additional Impression: Hyponatremia Disposition: 01 HOME, SELF-CARE Condition: Stable Departure-Patient Inst. Referrals: KALI DUNBAR MD (PCP/Family) Primary Care Physician Patient Instructions: Muscle Spasm ED Add. Discharge Instructions: Suggest increasing your magnesium twice a day. Suggest sodium tablets for the next 2 or 3 days decrease water intake concentrate more on electrolyte. Recommend follow-up with lab work in the next few days. If symptoms worsen return back to ED All discharge instructions reviewed with patient and/or family. Voiced understanding. ANICETO BAR Sep 07, 2022 11:17
[2022-09-07 11:26] LABS: ALBUMIN 4.2 GM/DL (3.2-4.5)
[2022-09-07 11:27] LABS: POTASSIUM 4.2 MMOL/L (3.6-5.0)
[2022-09-07 11:28] LABS: CALCIUM 9.5 MG/DL (8.5-10.1)
[2022-09-07 11:31] LABS: BILIRUBIN,TOTAL 0.9 MG/DL (0.1-1.0)
[2022-09-07 11:32] LABS: PHOSPHORUS 3.4 MG/DL (2.3-4.7)
[2022-09-07 11:33] LABS: CREATININE SERUM 0.79 MG/DL (0.60-1.30)
[2022-09-07 11:36] LABS: MAGNESIUM 1.4 MG/DL (1.6-2.4)
[2022-09-07] MEDS ORDERED: MAGNESIUM OXIDE (MAG-OX)400 MG TAB PO ONE (11:45)
[2022-09-07 11:58] LABS: CLARITY,URINE CLEAR; COLOR,URINE YELLOW; GLUCOSE, URINE (UA) NEGATIVE (NEGATIVE); KETONES,URINE TRACE (NEGATIVE); LEUKOCYTE ESTERASE ,URINE NEGATIVE (NEGATIVE); NITRITE,URINE NEGATIVE (NEGATIVE); PROTEIN,URINE 1+ (NEGATIVE)
[2022-09-07 12:20] LABS: BILIRUBIN,URINE 1+ (NEGATIVE)
[2022-09-07 12:21] LABS: BACTERIA,URINE TRACE /HPF; RBC,URINE RARE /HPF; SQUAMOUS EPITHELIAL CELL,UR RARE /HPF; URINE OTHER FEW SPERM /HPF; WBC,URINE RARE /HPF
[2022-09-07 14:19] VITALS: BP 152/88
== END 2022-09-07 14:22 | disposition home or self-care (01) ==
LOC: EDUNIT# 10:21 → ER 10:23
DX: E87.1 Hypo-osmolality and hyponatremia (principal); E83.42 Hypomagnesemia
CPT/HCPCS: 36415; 80053; 81000; 83735; 83935; 84100; 84443; 85025

== ENCOUNTER → 2022-09-15 | Outpatient (CLI) | payer MEDICARE, OTHER, MEDICAID ==
[~2022-09-15] VITALS: Ht 182.9 cm; Wt 88.4 kg
[~2022-09-15] MED LIST changes: +NS IV 1000 ML 1,000 ML IV SCH; +NS IV 1000 ML 1,000 ML ONE
[2022-09-15 06:05] VITALS: BP 160/73
[2022-09-15] MEDS: MAGNESIUM 1 GM/100 ML IVPB 200 ML IV ONE ×2 (06:42→07:18)
[2022-09-15] MEDS: MAGNESIUM 1 GM/D5W 100 ML IVPB IV SCH ×2 (07:15→07:17)
== END ==
LOC: SDC 06:01
PROVIDERS: ATTEND Family Medicine
DX: E61.2 Magnesium deficiency (principal)
CPT/HCPCS: 96360; 96365; 96366

== ENCOUNTER 2022-09-22 15:32 | Emergency (ER) | payer MEDICARE, OTHER, MEDICAID ==
[~2022-09-22] VITALS: Ht 182 cm; Wt 88.0 kg
[~2022-09-22 15:32] MED LIST changes: -NS IV 1000 ML 1,000 ML IV SCH; -NS IV 1000 ML 1,000 ML ONE
--- NOTE | 2022-09-22 16:14 | ED Lower Extremity ---
General Chief Complaint: Lower Extremity Stated Complaint: BILAT LEG WEEKNESS/CRAMPS Nursing Triage Note: PT AMB TO RM 3 PT CO OF BILATERAL LOWER EXT CRAMPING RATES PAIN WHEN CRAMPS. STATES HAS RECENT HX OF LOW MAG+ AND LOW NA+. PT LAST LAB 09/14/22. CO OF LEGS FEELING WEAK Source: patient, family Exam Limitations: no limitations History of Present Illness Date Seen by Provider: Sep 22, 2022 Time Seen by Provider: 15:58 Initial Comments Patient is a 66-year-old male who presents to the emergency department today with a chief complaint of bilateral lower extremity weakness, muscle cramping. Patient states over the course of his adult life he has had episodes of low sodium and low magnesium. He states over the last 3 weeks it has become more intense and episodes have become more frequent. 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 He states that when he becomes weak his blood pressure tends to drop a little lower than normal. He states he does not notice as much weakness in his upper extremities. No problems swallowing no problems breathing. No recent fevers or chills. No chest pain or shortness of breath. No nausea, vomiting or diarrhea. No urinary complaints. Last infusion was on September 14. He takes a magnesium supplement daily. Onset: other (last couple of days) Severity: moderate Allergies and Home Medications Allergies Coded Allergies: levofloxacin (Unverified Allergy, Mild, LEG/ BONE PAIN, 11/26/18) Sulfa (Sulfonamide Antibiotics) (Verified Allergy, Unknown, 11/26/18) dextromethorphan (Verified Allergy, Unknown, 11/26/18) meperidine (Unverified Adverse Reaction, Unknown, 11/26/18) Patient Home Medication List Home Medication List Reviewed: Yes ALPRAZolam (ALPRAZolam) 0.25 Mg Tablet, 0.25 MG PO BID PRN for ANXIETY, (Reported) Entered as Reported by: NAS TEJADA on 07/22/21925 Aspirin (Aspirin EC) 81 Mg Tablet.dr, 81 MG PO DAILY, (Reported) Entered as Reported by: NAS TEJADA on 07/22/21918 Cetirizine HCl (Zyrtec) 10 Mg Tablet, 10 MG PO DAILY, (Reported) Entered as Reported by: NAS TEJADA on 07/22/21918 Clonidine (Catapres-TTS 2 Patch) 1 Each Patch.tdwk, 1 EACH TD Q7D PRN for BLOOD PRESSURE, (Reported) Entered as Reported by: NAS TEJADA on 07/22/21925 Diltiazem HCl (Diltiazem 24Hr ER) 180 Mg Cap.er.24h, 180 MG PO DAILY, (Reported) Entered as Reported by: NAS TEJADA on 07/22/21918 Losartan Potassium (Losartan Potassium) 100 Mg Tablet, 100 MG PO DAILY, (Reported) Entered as Reported by: NSA TEJADA on 07/22/21918 Omeprazole (Omeprazole) 40 Mg Capsule.dr, 40 MG PO DAILY, (Reported) Entered as Reported by: NAS TEJADA on 07/22/21918 Tamsulosin HCl (Flomax) 0.4 Mg Cap, 0.4 MG PO DAILY, (Reported) Entered as Reported by: NAS TEJADA on 07/22/21918 [C/D3/Zinc] , 1 TAB PO DAILY, (Reported) Entered as Reported by: NAS TEJADA on 07/22/21918 Review of Systems Constitutional: see HPI EENTM: no symptoms reported Respiratory: no symptoms reported Cardiovascular: no symptoms reported Gastrointestinal: no symptoms reported Genitourinary: no symptoms reported Musculoskeletal: muscle weakness (legs) Skin: no symptoms reported All Other Systems Reviewed Negative Unless Noted: Yes Past Yfsynjm-Hmfsrj-Easrbm Hx Patient Social History Tobacco Use?: No Substance use?: No Alcohol Use?: Yes Alcohol type: Beer Alcohol Frequency: Rarely Pt feels they are or have been: No Immunizations Up To Date Influenza Vaccine Up-to-Date: No; Not Current Seasonal Allergies Seasonal Allergies: No Past Medical History Surgery/Hospitalization HX: ABD HERNIA, APPY, MANSI, CARDIAC STENTS, LOWER BACK, CAD, PALPITATIONS, GERD, DIVERTICULOSIS. Surgeries: Yes (BACK, HERNIAS, FACE LACERATION, ) Abdominal, Appendectomy, Cardiac, Coronary Stent, Gallbladder, Orthopedic Respiratory: No (COVID -19 [place] 04/2020--NO HOSPITALIZATION OR TREATMENT) Currently Using CPAP: No Currently Using BIPAP: No Cardiac: Yes (STENT X2) Coronary Artery Disease, High Cholesterol, Hypertension, Irregular Heartbeat, Palpitations Neurological: No Reproductive Disorders: No Sexually Transmitted Disease: No HIV/AIDS: No Genitourinary: No Gastrointestinal: Yes Gastroesophageal Reflux, Diverticulosis Musculoskeletal: Yes (BACK SURGERY; L1 COMPRESSION FX WITH KYPHOPLASTY 01/2015;SPINAL STENOSIS ) Chronic Back Pain Endocrine: No HEENT: Yes (READING GLASSES) Loss of Vision: Denies Hearing Impairment: Hard of Hearing Cancer: No Psychosocial: Yes Anxiety Integumentary: No Blood Disorders: Yes (tularemia) Adverse Reaction/Blood Tranf: No Family Medical History No Pertinent Family Hx SOCIAL HISTORY: -SMOKING -ETOH -DRUGS PAST SURGICAL HISTORY: -CARDIAC CATH 07/22/[address] WOOD: IMPRESSION: 1. Mild systemic hypertension. 2. Patent stents in the mid and distal segment of the left anterior descending coronary artery with a 50% stenosis in the proximal segment of the vessel. 3. The right coronary artery is dominant contained mild disease. 4. The patient is known to have normal left ventricular systolic function with an estimated ejection fraction of 60% by echocardiogram obtained on 12/21/2020 Physical Exam Vital Signs Vital Signs - First Documented 09/22/22 15:52 Pulse 67 Resp 18 B/P (MAP) 153/71 (98) Pulse Ox 97 Capillary Refill : Less Than 3 Seconds Height, Weight, BMI Height: 6'0.00" Weight: 190lbs. 0.0oz. [id number]; 26.00 BMI Method:Stated General Appearance: WD/WN, no apparent distress HEENT: PERRL/EOMI Neck: full range of motion Cardiovascular: regular rate, rhythm Respiratory: lungs clear, normal breath sounds, no respiratory distress, no accessory muscle use Gastrointestinal: non tender, soft Progress/Results/Core Measures Results/Orders Lab Results Laboratory Tests Test 09/22/22 16:05 Range/Units White Blood Count 5.7 4.3-11.0 10^3/uL Red Blood Count 3.72 L 4.30-5.52 10^6/uL Hemoglobin 11.5 L 13.3-17.7 g/dL Hematocrit 34 L 40-54 % Mean Corpuscular Volume 90 80-99 fL Mean Corpuscular Hemoglobin 31 25-34 pg Mean Corpuscular Hemoglobin Concent 34 32-36 g/dL Red Cell Distribution Width 14.6 H 10.0-14.5 % Platelet Count 255 130-400 10^3/uL Mean Platelet Volume 9.8 9.0-12.2 fL Immature Granulocyte % (Auto) 1 % Neutrophils (%) (Auto) 56 42-75 % Lymphocytes (%) (Auto) 19 12-44 % Monocytes (%) (Auto) 15 H 0-12 % Eosinophils (%) (Auto) 9 0-10 % Basophils (%) (Auto) 1 0-10 % Neutrophils # (Auto) 3.2 1.8-7.8 10^3/uL Lymphocytes # (Auto) 1.1 1.0-4.0 10^3/uL Monocytes # (Auto) 0.8 0.0-1.0 10^3/uL Eosinophils # (Auto) 0.5 H 0.0-0.3 10^3/uL Basophils # (Auto) 0.0 0.0-0.1 10^3/uL Immature Granulocyte # (Auto) 0.1 0.0-0.1 10^3/uL Sodium Level 135 135-145 MMOL/L Potassium Level 4.0 3.6-5.0 MMOL/L Chloride Level 101 98-107 MMOL/L Carbon Dioxide Level 22 21-32 MMOL/L Anion Gap 12 5-14 MMOL/L Blood Urea Nitrogen 14 7-18 MG/DL Creatinine 0.91 0.60-1.30 MG/DL Estimat Glomerular Filtration Rate 93 BUN/Creatinine Ratio 15 Glucose Level 140 H 70-105 MG/DL Calcium Level 8.9 8.5-10.1 MG/DL Phosphorus Level 3.2 2.3-4.7 MG/DL Magnesium Level 1.5 L 1.6-2.4 MG/DL My Orders Orders - BIBI DE LUNA MD Ed Iv/Invasive Line Start (09/22/22 16:11) Cbc With Automated Diff (09/22/22 16:11) Basic Metabolic Panel (09/22/22 16:11) Magnesium (09/22/22 16:11) Phosphorus (09/22/22 16:11) Magnesium 1 Gm/100 Ml Ivpb (Magnesium [place] (09/22/22 17:15) Vital Signs/I&O 09/22/22 15:52 Pulse 67 Resp 18 B/P (MAP) 153/71 (98) Pulse Ox 97 Blood Pressure Mean: 98 Departure Impression Primary Impression: Hypomagnesemia Additional Impression: Muscle weakness Disposition: 01 HOME, SELF-CARE Condition: Stable Departure-Patient Inst. Decision time for Depature: 18:02 Referrals: KALI DE LA GARZA MD (PCP/Family) Primary Care Physician Patient Instructions: Low Magnesium Level (DC) Add. Discharge Instructions: Continue your daily medications as prescribed. Please call your Kidney doctor tomorrow for further evaluation and management of your low magnesium If you have any other new, emergent or concerning symptoms - return to the Emergency Department for re-evaluation. Copy Copies To 1: KLAI DE LA GARZA MD, KATHRYN M MD Sep 22, 2022 16:14
[2022-09-22 16:15] LABS: BASOPHILS % (AUTO) 1 % (0-10); EOSINOPHILS # (AUTO) 0.5 10^3/uL (0.0-0.3); EOSINOPHILS % (AUTO) 9 % (0-10); HEMATOCRIT 34 % (40-54); HEMOGLOBIN 11.5 g/dL (13.3-17.7); LYMPHOCYTES # (AUTO) 1.1 10^3/uL (1.0-4.0); LYMPHOCYTES % (AUTO) 19 % (12-44); MEAN CORPUSCULAR HEMOGLOBIN 31 pg (25-34); MEAN CORPUSCULAR HGB CONC 34 g/dL (32-36); MEAN CORPUSCULAR VOLUME 90 fL (80-99); MEAN PLATELET VOLUME 9.8 fL (9.0-12.2); MONOCYTES # (AUTO) 0.8 10^3/uL (0.0-1.0); MONOCYTES % (AUTO) 15 % (0-12); NEUTROPHILS # (AUTO) 3.2 10^3/uL (1.8-7.8); NEUTROPHILS % (AUTO) 56 % (42-75); PLATELET COUNT 255 10^3/uL (130-400); WHITE BLOOD COUNT 5.7 10^3/uL (4.3-11.0)
[2022-09-22 16:27] LABS: CALCIUM 8.9 MG/DL (8.5-10.1)
[2022-09-22 16:31] LABS: CREATININE SERUM 0.91 MG/DL (0.60-1.30); PHOSPHORUS 3.2 MG/DL (2.3-4.7)
[2022-09-22 16:34] LABS: MAGNESIUM 1.5 MG/DL (1.6-2.4)
[2022-09-22] MEDS: MAGNESIUM 1 GM/100 ML IVPB 100 ML IV SCH ×2 (17:12→18:09)
[2022-09-22 19:17] VITALS: BP 158/87
== END 2022-09-22 19:17 | disposition home or self-care (01) ==
LOC: EDUNIT# 15:32 → ER 15:33
DX: E83.42 Hypomagnesemia (principal); M62.81 Muscle weakness (generalized)
CPT/HCPCS: 36415; 80048; 83735; 84100; 85025

== ENCOUNTER 2022-09-29 08:11 | Emergency (ER) | payer MEDICARE, OTHER, MEDICAID ==
[~2022-09-29] VITALS: Ht 182.9 cm; Wt 87.5 kg
--- NOTE | 2022-09-29 08:36 | ED Cough/URI ---
General Stated Complaint: COUGH | CHEST CONGESTION | CRAMPING Source: patient Exam Limitations: no limitations History of Present Illness Date Seen by Provider: Sep 29, 2022 Time Seen by Provider: 08:35 Initial Comments Patient is a 66-year-old male who presents to the emergency department with a chief complaint of cough productive of yellow thick sputum, feeling short of breath, congested. He states the symptoms have been going off and on for about a month. Worse in the last several days. He has been prescribed a codeine cough syrup that not really helping. He has been prescribed an inhaler his last puffs were at 630 this morning. He has been wheezing. He denies fever. Appetite has been fair. Normal output. No swelling in his legs. He has chronic cramping related to low magnesium. He has had multiple recent visits for magnesium infusions. He does have history of cardiac stent. His last visit with Dr. Lopez in [place] at [facility] was about a month ago. He is scheduled to get an echo and stress test very soon due to abnormal heart monitor recently. He states he is more short of breath with exertion. He was up all night coughing last night. He is allergic to anything with dextromethorphan in it. He quit smoking in 2018. Timing/Duration: other (1 month) Severity/Quality: moderate, sputum Prior Episodes/Possible Cause: chronic episodes Modifying Factors: Worse With Activity; Improves With Albuterol Inhaler, Improves With Rest Associated Symptoms: cough, shortness of breath, wheezing, other (Congestion) Allergies and Home Medications Allergies Coded Allergies: levofloxacin (Unverified Allergy, Mild, LEG/ BONE PAIN, 11/26/18) Sulfa (Sulfonamide Antibiotics) (Verified Allergy, Unknown, 11/26/18) dextromethorphan (Verified Allergy, Unknown, 11/26/18) meperidine (Unverified Adverse Reaction, Unknown, 11/26/18) Patient Home Medication List Home Medication List Reviewed: Yes ALPRAZolam (ALPRAZolam) 0.25 Mg Tablet, 0.25 MG PO BID PRN for ANXIETY, (Reported) Entered as Reported by: NAS TEJADA on 07/22/21 0926 Albuterol Sulfate (Ventolin Hfa) 90 Mcg Hfa.aer.ad, 2 PUFF INH Q6H PRN for SHOR TNESS OF BREATH, (Reported) Entered as Reported by: PHILIPP OROZCO on 09/30/221246 Aspirin (Aspirin EC) 81 Mg Tablet.dr, 81 MG PO DAILY, (Reported) Entered as Reported by: NAS TEJADA on 07/22/21918 Clonidine HCl (Clonidine HCl) 0.1 Mg Tablet, 0.1 MG PO BID PRN for BLOOD PRESSURE, (Reported) Entered as Reported by: PHILIPP OROZCO on 09/30/221246 Diltiazem HCl (Diltiazem 24Hr ER) 180 Mg Cap.er.24h, 180 MG PO HS, (Reported) Entered as Reported by: NAS TEJADA on 07/22/21918 Doxycycline Hyclate (Doxycycline Hyclate) 100 Mg Capsule, 100 MG PO BID, (Reported) Entered as Reported by: PHILIPP OROZCO on 09/30/221246 Loratadine (Loratadine) 10 Mg Tablet, 10 MG PO DAILY, (Reported) Entered as Reported by: PHILIPP OROZCO on 09/30/221246 Losartan Potassium (Losartan Potassium) 100 Mg Tablet, 100 MG PO DAILY, (Reported) Entered as Reported by: NAS TEJADA on 07/22/21918 Magnesium Citrate and Oxide (Magnesium) 250 Mg Capsule, 250 MG PO DAILY, (Reported) Entered as Reported by: PHILIPP OROZCO on 09/30/221246 Omeprazole (Omeprazole) 40 Mg Capsule.dr, 40 MG PO DAILY, (Reported) Entered as Reported by: NAS TEJADA on 07/22/21918 Sildenafil Citrate (Viagra) 100 Mg Tablet, 100 MG PO UD PRN for ED, (Reported) Entered as Reported by: PHILIPP OROZCO on 09/30/221246 Tamsulosin HCl (Flomax) 0.4 Mg Cap, 0.4 MG PO DAILY, (Reported) Entered as Reported by: NAS TEJADA on 07/22/21918 Discontinued Medications Cetirizine HCl (Zyrtec) 10 Mg Tablet, 10 MG PO DAILY, (Reported) Discontinued Reason: No Longer Taking Entered as Reported by: NAS TEJADA on 07/22/21918 Clonidine (Catapres-TTS 2 Patch) 1 Each Patch.tdwk, 1 EACH TD Q7D PRN for BLOOD PRESSURE, (Reported) Discontinued Reason: No Longer Taking Entered as Reported by: NAS TEJADA on 07/22/21 0926 Ipratropium/Albuterol Sulfate (Iprat-Albut 0.5-3(2.5) mg/3 ml) 0.5 Mg-3 Mg (2.5 Mg Base)/3 Ml Ampul.neb, 3 ML IH Q6H PRN for SHORTNESS OF BREATH Discontinued Reason: No Longer Taking Prescribed by: BIBI DE LUNA on 09/29/22 1054 [C/D3/Zinc] , 1 TAB PO DAILY, (Reported) Discontinued Reason: No Longer Taking Entered as Reported by: NAS TEJADA on 07/22/21 0919 Review of Systems Review of Systems Constitutional: see HPI EENTM: nose congestion Respiratory: cough, phlegm, short of breath Cardiovascular: no symptoms reported Gastrointestinal: no symptoms reported Musculoskeletal: no symptoms reported Skin: no symptoms reported Psychiatric/Neurological: No Symptoms Reported All Other Systems Reviewed Negative Unless Noted: Yes Past Fiqugss-Sdmzwi-Pgtvcj Hx Seasonal Allergies Seasonal Allergies: No Past Medical History Surgery/Hospitalization HX: ABD HERNIA, APPY, MANSI, CARDIAC STENTS, LOWER BACK, CAD, PALPITATIONS, GERD, DIVERTICULOSIS. Surgeries: Yes (BACK, HERNIAS, FACE LACERATION, ) Abdominal, Appendectomy, Cardiac, Coronary Stent, Gallbladder, Orthopedic Respiratory: No (COVID -19 [place] 04/2020--NO HOSPITALIZATION OR TREATMENT) Currently Using CPAP: No Currently Using BIPAP: No Cardiac: Yes (STENT X2) Coronary Artery Disease, High Cholesterol, Hypertension, Irregular Heartbeat, Palpitations Neurological: No Reproductive Disorders: No Sexually Transmitted Disease: No HIV/AIDS: No Genitourinary: No Gastrointestinal: Yes Gastroesophageal Reflux, Diverticulosis Musculoskeletal: Yes (BACK SURGERY; L1 COMPRESSION FX WITH KYPHOPLASTY 01/2015;SPINAL STENOSIS ) Chronic Back Pain Endocrine: No HEENT: Yes (READING GLASSES) Loss of Vision: Denies Hearing Impairment: Hard of Hearing Cancer: No Psychosocial: Yes Anxiety Integumentary: No Blood Disorders: Yes (tularemia) Adverse Reaction/Blood Tranf: No Family Medical History No Pertinent Family Hx SOCIAL HISTORY: -SMOKING -ETOH -DRUGS PAST SURGICAL HISTORY: -CARDIAC CATH 07/22/[address] WOOD: IMPRESSION: 1. Mild systemic hypertension. 2. Patent stents in the mid and distal segment of the left anterior descending coronary artery with a 50% stenosis in the proximal segment of the vessel. 3. The right coronary artery is dominant contained mild disease. 4. The patient is known to have normal left ventricular systolic function with an estimated ejection fraction of 60% by echocardiogram obtained on 12/21/2020 Physical Exam Vital Signs - First Documented 09/29/22 11:10 Pulse Ox 98 Capillary Refill : Height: 6'0.00" Weight: 190lbs. 0.0oz. [id number]; 26.00 BMI Method:Stated General Appearance: WD/WN, no apparent distress Eyes: Bilateral Eye Normal Inspection, Bilateral Eye PERRL, Bilateral Eye EOMI HEENT: PERRL/EOMI Neck: normal inspection Respiratory: wheezing (Expiratory wheezes bilaterally, occasional crackles left greater than right) Cardiovascular: regular rate, rhythm Gastrointestinal: normal bowel sounds, non tender, soft Extremities: normal range of motion, non-tender, normal inspection, no pedal edema, no calf tenderness, normal capillary refill Neurologic/Psychiatric: alert, normal mood/affect, oriented x 3 Skin: normal color, warm/dry Progress/Results/Core Measures Suspected Sepsis SIRS Temperature: Pulse: Respiratory Rate: Laboratory Tests 09/29/22 09:01: White Blood Count 9.3 Blood Pressure / Mean: Laboratory Tests 09/29/22 09:01: Creatinine 0.81, Platelet Count 269 Results/Orders Lab Results Laboratory Tests Test 09/29/22 09:01 Range/Units White Blood Count 9.3 4.3-11.0 10^3/uL Red Blood Count 3.91 L 4.30-5.52 10^6/uL Hemoglobin 12.1 L 13.3-17.7 g/dL Hematocrit 35 L 40-54 % Mean Corpuscular Volume 89 80-99 fL Mean Corpuscular Hemoglobin 31 25-34 pg Mean Corpuscular Hemoglobin Concent 35 32-36 g/dL Red Cell Distribution Width 14.5 10.0-14.5 % Platelet Count 269 130-400 10^3/uL Mean Platelet Volume 10.1 9.0-12.2 fL Immature Granulocyte % (Auto) 1 % Neutrophils (%) (Auto) 59 42-75 % Lymphocytes (%) (Auto) 18 12-44 % Monocytes (%) (Auto) 9 0-12 % Eosinophils (%) (Auto) 13 H 0-10 % Basophils (%) (Auto) 0 0-10 % Neutrophils # (Auto) 5.4 1.8-7.8 10^3/uL Lymphocytes # (Auto) 1.7 1.0-4.0 10^3/uL Monocytes # (Auto) 0.8 0.0-1.0 10^3/uL Eosinophils # (Auto) 1.2 H 0.0-0.3 10^3/uL Basophils # (Auto) 0.0 0.0-0.1 10^3/uL Immature Granulocyte # (Auto) 0.1 0.0-0.1 10^3/uL Neutrophils % (Manual) 52 % Lymphocytes % (Manual) 25 % Monocytes % (Manual) 5 % Eosinophils % (Manual) 18 % Basophils % (Manual) 0 % Band Neutrophils 0 % Blood Morphology Comment NORMAL D-Dimer < 0.27 0.00-0.49 UG/ML Sodium Level 133 L 135-145 MMOL/L Potassium Level 4.3 3.6-5.0 MMOL/L Chloride Level 101 98-107 MMOL/L Carbon Dioxide Level 21 21-32 MMOL/L Anion Gap 11 5-14 MMOL/L Blood Urea Nitrogen 16 7-18 MG/DL Creatinine 0.81 0.60-1.30 MG/DL Estimat Glomerular Filtration Rate 97 BUN/Creatinine Ratio 20 Glucose Level 109 H 70-105 MG/DL Calcium Level 9.1 8.5-10.1 MG/DL Magnesium Level 1.6 1.6-2.4 MG/DL My Orders Orders - BIBI DE LUNA MD Ed Iv/Invasive Line Start (09/29/22 09:05) Ed Iv/Invasive Line Start (09/29/22 09:10) Cbc With Automated Diff (09/29/22 09:10) Basic Metabolic Panel (09/29/22 09:10) Magnesium (09/29/22 09:10) Chest Pa/Lat (2 View) (09/29/22 09:10) Fibrin Degradation Products (09/29/22 09:10) Manual Differential (09/29/22 09:01) Albuterol/Ipra Inhalation Soln (Duoneb I (09/29/22 10:15) Svn Small Volume Nebulizer (4/20/23 10:07) Medications Given in ED Vital Signs/I&O 09/29/22 09/29/22 09/29/22 08:24 08:24 11:10 Temp 36.6 36.2 Pulse 76 73 Resp 17 16 B/P (MAP) 153/78 (103) 144/80 Pulse Ox 98 O2 Delivery Room Air Room Air Room Air Capillary Refill : Progress Note : Time: 10:52 Progress Note Patient seen and evaluated by me. Evaluation today includes physical exam, CBC, basic metabolic panel, D-dimer, two-view chest x-ray. Pertinent physical exam findings well-developed well-nourished 66-year-old male in no acute distress with stable vital signs. Patient does have inspiratory and expiratory wheezes bilaterally without crackles. He is afebrile. Heart is regular. Abdomen is soft. Trace lower extremity edema. Differential diagnosis based on history and physical exam, pneumonia, chronic bronchitis, COPD exacerbation, pulmonary embolism. Chest x-ray and labs reviewed and interpreted by me. CBC pertinent for hemoglobin of 12.1 hematocrit of 35. Chemistry is within normal limits. D- dimer is undetectable. Chest x-ray independently interpreted by me, no infiltrate or effusion. Read by radiology as well with no acute findings. Patient is treated in the emergency department with a DuoNeb breathing treatment. He has complete resolution of his cough. Secondary to labs being normal and D-dimer undetectable, no significant risks for PE pulmonary embolism is very low on the list I encouraged him to finish out his course of doxycycline antibiotics that he is currently on day 5 of. I recommended Mucinex, continue acid reducers, honey at night. He has also just finished a course of steroids. I recommended he follow-up with his primary care physician next week. Rx for ipratripium and albuterol sent to his pharmacy. We dispensed a nebulizer. He verbalized understanding of the plan of care all questions are sought and answered. Patient is improved at discharge. Diagnostic Imaging Diagonstic Imaging: Xray Plain Films/CT/US/NM/MRI: chest Comments [facility] [place], [place] NAME: CHELSI FORDE [facility] REC#: [id number] PT STATUS: REG ER : 1955 PHYSICIAN: BIBI DE LUNA MD ADMIT DATE: 09/29/22/ER Draft Date of Exam:09/29/22 CHEST PA/LAT (2 VIEW) EXAMINATION: Chest 2 view HISTORY: cough, SOB; COMPARISON: 03/06/2018 FINDINGS: Heart size and pulmonary vasculature are normal. The lungs are clear without consolidation, pleural effusion, or pneumothorax. The osseous structures are intact. IMPRESSION: 1. No acute radiographic abnormality in the chest. Dictated on workstation # [id number] Dict: 09/29/22 0948 Trans: 09/29/22 0953 [facility] [id number] Interpreted by: GIANNA CUEVAS DO Electronically signed by: Departure Impression Primary Impression: Upper respiratory infection with cough and congestion Disposition: HOME, SELF-CARE Condition: Improved Departure-Patient Inst. Decision time for Depature: 10:52 Referrals: KALI DE LA GARZA MD (PCP/Family) Primary Care Physician Patient Instructions: Upper Respiratory Infection ED Add. Discharge Instructions: Continue your antibiotics until they are gone. Use the nebulizer every 6 hours while awake at home. You may use the albuterol inhaler once in between as needed for shortness of breath. Please follow-up with your primary care provider as scheduled. If you develop a fever, worsening shortness of breath, bloody sputum or any other emergent, concerning symptoms please return to the emergency room for reevaluation. Copy Copies To 1: KALI DE LA GARZA MD, KATHRYN M MD Sep 29, 2022 08:36
[2022-09-29 09:19] LABS: BASOPHILS % (AUTO) 0 % (0-10); EOSINOPHILS # (AUTO) 1.2 10^3/uL (0.0-0.3); EOSINOPHILS % (AUTO) 13 % (0-10); HEMATOCRIT 35 % (40-54); HEMOGLOBIN 12.1 g/dL (13.3-17.7); LYMPHOCYTES # (AUTO) 1.7 10^3/uL (1.0-4.0); LYMPHOCYTES % (AUTO) 18 % (12-44); MEAN CORPUSCULAR HEMOGLOBIN 31 pg (25-34); MEAN CORPUSCULAR HGB CONC 35 g/dL (32-36); MEAN CORPUSCULAR VOLUME 89 fL (80-99); MEAN PLATELET VOLUME 10.1 fL (9.0-12.2); MONOCYTES # (AUTO) 0.8 10^3/uL (0.0-1.0); MONOCYTES % (AUTO) 9 % (0-12); NEUTROPHILS # (AUTO) 5.4 10^3/uL (1.8-7.8); NEUTROPHILS % (AUTO) 59 % (42-75); PLATELET COUNT 269 10^3/uL (130-400); WHITE BLOOD COUNT 9.3 10^3/uL (4.3-11.0)
[2022-09-29 09:27] LABS: POTASSIUM 4.3 MMOL/L (3.6-5.0)
[2022-09-29 09:28] LABS: CALCIUM 9.1 MG/DL (8.5-10.1)
[2022-09-29 09:32] LABS: CREATININE SERUM 0.81 MG/DL (0.60-1.30)
[2022-09-29 09:34] LABS: MAGNESIUM 1.6 MG/DL (1.6-2.4)
[2022-09-29 09:41] LABS: BAND NEUTROPHILS 0 %; BASOPHILS % (MANUAL) 0 %; EOSINOPHILS % (MANUAL) 18 %; LYMPHOCYTES % (MANUAL) 25 %; MONOCYTES % (MANUAL) 5 %; NEUTROPHILS % (MANUAL) 52 %; RBC MORPH NORMAL
--- NOTE | 2022-09-29 09:54 | Diagnostic Imaging Report ---
EXAMINATION: Chest 2 view HISTORY: cough, SOB; COMPARISON: 03/06/2018 FINDINGS: Heart size and pulmonary vasculature are normal. The lungs are clear without consolidation, pleural effusion, or pneumothorax. The osseous structures are intact. IMPRESSION: 1. No acute radiographic abnormality in the chest. Dictated by: Dictated on workstation # [id number]
[2022-09-29] MEDS ORDERED: RT-ALBUTEROL/IPRATROPIUM 3 ML (DUONEB) VIAL INH ONE (10:15)
[2022-09-29] MEDS ORDERED: IPRA3AMP31 IH (10:54)
[2022-09-29 11:10] VITALS: BP 144/80
[2022-09-30] MEDS ORDERED: CLN.1T PO (12:47)
[2022-09-30] MEDS ORDERED: DOXY100C5 PO (12:47)
[2022-09-30] MEDS ORDERED: SILD100T PO (12:47)
[2022-09-30] MEDS ORDERED: MAGN250C PO (12:47)
[2022-09-30] MEDS ORDERED: ALBU18HF2 INH (12:47)
[2022-09-30] MEDS ORDERED: LORA10TA7 PO (12:47)
== END 2022-09-29 11:10 | disposition home or self-care (01) ==
LOC: EDUNIT# 08:11 → ER 08:14
DX: J06.9 Acute upper respiratory infection, unspecified (principal); Z87.891 Personal history of nicotine dependence; Z86.16 Personal history of COVID-19; Z28.310 Unvaccinated for COVID-19
CPT/HCPCS: 36415; 71046; 80048; 83735; 85007; 85027; 85379

== ENCOUNTER 2022-09-29 20:45 | Observation (INO) | payer MEDICARE, OTHER, MEDICAID ==
[~2022-09-29] VITALS: Ht 182.8 cm; Wt 89.1 kg
[~2022-09-29 20:45] MED LIST changes: +IPRA3AMP31 IH
[2022-09-29] MEDS ORDERED: RT-ALBUTEROL/IPRATROPIUM 3 ML (DUONEB) VIAL INH ONE (21:15)
[2022-09-29] MEDS ORDERED: methylPREDNISolone 125 MG (Solu-MEDROL) VIAL IVP ONE (21:15)
[2022-09-29] MEDS ORDERED: RT-ALBUTEROL/IPRATROPIUM 3 ML (DUONEB) VIAL ONE (21:15)
[2022-09-29 21:19] LABS: BASOPHILS % (AUTO) 0 % (0-10); EOSINOPHILS # (AUTO) 1.2 10^3/uL (0.0-0.3); EOSINOPHILS % (AUTO) 14 % (0-10); HEMATOCRIT 35 % (40-54); HEMOGLOBIN 12.6 g/dL (13.3-17.7); LYMPHOCYTES # (AUTO) 1.5 10^3/uL (1.0-4.0); LYMPHOCYTES % (AUTO) 17 % (12-44); MEAN CORPUSCULAR HEMOGLOBIN 31 pg (25-34); MEAN CORPUSCULAR HGB CONC 36 g/dL (32-36); MEAN CORPUSCULAR VOLUME 88 fL (80-99); MONOCYTES # (AUTO) 0.7 10^3/uL (0.0-1.0); MONOCYTES % (AUTO) 8 % (0-12); NEUTROPHILS # (AUTO) 5.3 10^3/uL (1.8-7.8); NEUTROPHILS % (AUTO) 60 % (42-75); PLATELET COUNT 273 10^3/uL (130-400); WHITE BLOOD COUNT 8.9 10^3/uL (4.3-11.0)
[2022-09-29 21:32] LABS: BUN/CREATININE RATIO 20; CALCIUM 9.4 MG/DL (8.5-10.1); CARBON DIOXIDE 18 MMOL/L (21-32); CHLORIDE 100 MMOL/L (98-107); CREATININE SERUM 0.87 MG/DL (0.60-1.30); GFR ESTIMATED 95; GLUCOSE 149 MG/DL (70-105); POTASSIUM 4.3 MMOL/L (3.6-5.0); SODIUM 131 MMOL/L (135-145)
--- NOTE | 2022-09-29 22:41 | ED Cough/URI ---
General Chief Complaint: Respiratory Problems Stated Complaint: SOA/COUGH/WHEEZING Nursing Triage Note: PT AMB TO RM 10 WITH CC OF SOB, COUGH, AND WHEEZING. PT WAS SEEN THIS A.M. FOR SAME ISSUE AND DECLINED IN CARE FOLLOWING DISCHARGE. Source: patient Exam Limitations: no limitations History of Present Illness Date Seen by Provider: Sep 29, 2022 Time Seen by Provider: 21:15 Initial Comments 66-year-old male presents to the emergency department today for respiratory distress, shortness of breath. He states symptoms started nearly a month ago. He was seen this morning as his symptoms worsen the last couple of days and he finally came in this morning. He was given steroids and a breathing treatment and ultimately discharged home because he was feeling better. He comes in this evening with worsening respiratory issues. He states his symptoms now are worse than they were prior to presentation this morning. Denies any fevers or chills. He has had a productive cough again over the last month but has no known lung pathology outside of this. No history of cardiac issues, has several stents but denies any chest pain currently. No abdominal pain or change in bowel or bladder habits. No unilateral lower extremity pain, swelling, recent long travel or surgeries. All other systems reviewed and negative except documented per HPI. Voice recognition software was used to help create this chart Allergies and Home Medications Allergies Coded Allergies: levofloxacin (Unverified Allergy, Mild, LEG/ BONE PAIN, 11/26/18) Sulfa (Sulfonamide Antibiotics) (Verified Allergy, Unknown, 11/26/18) dextromethorphan (Verified Allergy, Unknown, 11/26/18) meperidine (Unverified Adverse Reaction, Unknown, 11/26/18) Patient Home Medication List Home Medication List Reviewed: Yes ALPRAZolam (ALPRAZolam) 0.25 Mg Tablet, 0.25 MG PO BID PRN for ANXIETY, (Reported) Entered as Reported by: NAS TEJADA on 07/22/21 5125 Last Action: Continued Albuterol Sulfate (Ventolin Hfa) 90 Mcg Hfa.aer.ad, 2 PUFF INH Q6H PRN for SHORTNESS OF BREATH, (Reported) Entered as Reported by: PHILIPP OROZCO on 09/30/22 1247 Last Action: Held Aspirin (Aspirin EC) 81 Mg Tablet.dr, 81 MG PO DAILY, (Reported) Entered as Reported by: NAS TEJADA on 07/22/21918 Last Action: Held Clonidine HCl (Clonidine HCl) 0.1 Mg Tablet, 0.1 MG PO BID PRN for BLOOD PRESSURE, (Reported) Entered as Reported by: PHILIPP OROZCO on 09/30/221246 Last Action: Continued Diltiazem HCl (Diltiazem 24Hr ER) 180 Mg Cap.er.24h, 180 MG PO HS, (Reported) Entered as Reported by: NAS TEJADA on 07/22/21918 Last Action: Held Doxycycline Hyclate (Doxycycline Hyclate) 100 Mg Capsule, 100 MG PO BID, (Reported) Entered as Reported by: PHILIPP OROZCO on 09/30/221246 Last Action: Held Loratadine (Loratadine) 10 Mg Tablet, 10 MG PO DAILY, (Reported) Entered as Reported by: PHILIPP OROZCO on 09/30/221246 Last Action: Continued Losartan Potassium (Losartan Potassium) 100 Mg Tablet, 100 MG PO DAILY, (Reported) Entered as Reported by: NAS TEJADA on 07/22/21918 Last Action: Held Magnesium Citrate and Oxide (Magnesium) 250 Mg Capsule, 250 MG PO DAILY, (Reported) Entered as Reported by: PHILIPP OROZCO on 09/30/221246 Last Action: Held Omeprazole (Omeprazole) 40 Mg Capsule.dr, 40 MG PO DAILY, (Reported) Entered as Reported by: NAS TEJADA on 07/22/21918 Last Action: Held Sildenafil Citrate (Viagra) 100 Mg Tablet, 100 MG PO UD PRN for ED, (Reported) Entered as Reported by: PHILIPP OROZCO on 09/30/221246 Last Action: Held Tamsulosin HCl (Flomax) 0.4 Mg Cap, 0.4 MG PO DAILY, (Reported) Entered as Reported by: NAS TEJADA on 07/22/21918 Last Action: Continued Discontinued Medications Cetirizine HCl (Zyrtec) 10 Mg Tablet, 10 MG PO DAILY, (Reported) Discontinued Reason: No Longer Taking Entered as Reported by: NAS TEJADA on 07/22/21918 Last Action: Discontinued Clonidine (Catapres-TTS 2 Patch) 1 Each Patch.tdwk, 1 EACH TD Q7D PRN for BLOOD PRESSURE, (Reported) Discontinued Reason: No Longer Taking Entered as Reported by: NAS TEJADA on 07/22/21 09 Last Action: Discontinued Ipratropium/Albuterol Sulfate (Iprat-Albut 0.5-3(2.5) mg/3 ml) 0.5 Mg-3 Mg (2.5 Mg Base)/3 Ml Ampul.neb, 3 ML IH Q6H PRN for SHORTNESS OF BREATH Discontinued Reason: No Longer Taking Prescribed by: BIBI DE LUNA on 09/29/22 1054 Last Action: Discontinued [C/D3/Zinc] , 1 TAB PO DAILY, (Reported) Discontinued Reason: No Longer Taking Entered as Reported by: NAS TEJADA on 07/22/21918 Last Action: Discontinued Review of Systems Review of Systems Constitutional: see HPI Past Esbgbcx-Jgaztw-Syitau Hx Patient Social History Tobacco Use?: No Smoking Status: Former Smoker Substance use?: No Alcohol Use?: No Seasonal Allergies Seasonal Allergies: No Past Medical History Surgery/Hospitalization HX: ABD HERNIA, APPY, MANSI, CARDIAC STENTS, LOWER BACK, CAD, PALPITATIONS, GERD, DIVERTICULOSIS. Surgeries: Yes (BACK, HERNIAS, FACE LACERATION, ) Abdominal, Appendectomy, Cardiac, Coronary Stent, Gallbladder, Orthopedic Respiratory: No (COVID -19 [place] 04/2020--NO HOSPITALIZATION OR TREATMENT) Currently Using CPAP: No Currently Using BIPAP: No Cardiac: Yes (STENT X2) Coronary Artery Disease, High Cholesterol, Hypertension, Irregular Heartbeat, Palpitations Neurological: No Reproductive Disorders: No Sexually Transmitted Disease: No HIV/AIDS: No Genitourinary: No Gastrointestinal: Yes Gastroesophageal Reflux, Diverticulosis Musculoskeletal: Yes (BACK SURGERY; L1 COMPRESSION FX WITH KYPHOPLASTY 01/2015;SPINAL STENOSIS ) Chronic Back Pain Endocrine: No HEENT: Yes (READING GLASSES) Loss of Vision: Denies Hearing Impairment: Hard of Hearing Cancer: No Psychosocial: Yes Anxiety Integumentary: No Blood Disorders: Yes (tularemia) Adverse Reaction/Blood Tranf: No Family Medical History No Pertinent Family Hx SOCIAL HISTORY: -SMOKING -ETOH -DRUGS PAST SURGICAL HISTORY: -CARDIAC CATH 07/22/[address] WOOD: IMPRESSION: 1. Mild systemic hypertension. 2. Patent stents in the mid and distal segment of the left anterior descending coronary artery with a 50% stenosis in the proximal segment of the vessel. 3. The right coronary artery is dominant contained mild disease. 4. The patient is known to have normal left ventricular systolic function with an estimated ejection fraction of 60% by echocardiogram obtained on 12/21/2020 Physical Exam Vital Signs - First Documented 09/29/22 09/29/22 21:00 21:20 Temp 36.4 Pulse 92 Resp 23 B/P (MAP) 196/103 (134) Pulse Ox 96 O2 Delivery Room Air O2 Flow Rate 40.00 Capillary Refill : Height: 6'0.00" Weight: 190lbs. 0.0oz. 86.028900ph; 26.00 BMI Method:Stated General Appearance: other (Moderate respiratory distress) HEENT: normal ENT inspection, pharynx normal Neck: non-tender, supple, normal inspection Respiratory: chest non-tender, other (Moderate respiratory distress with diffuse inspiratory and expiratory wheezing bilaterally.) Cardiovascular: no edema, no murmur, tachycardia Gastrointestinal: normal bowel sounds, non tender, soft, no organomegaly, no pulsatile mass Extremities: non-tender, normal inspection, no pedal edema, no calf tenderness, normal capillary refill Neurologic/Psychiatric: alert, normal mood/affect, oriented x 3 Progress/Results/Core Measures Suspected Sepsis SIRS Temperature: Pulse: 77 Respiratory Rate: 23 Laboratory Tests 09/29/22 20:58: White Blood Count 8.9 Blood Pressure 196 /103 Mean: 134 Laboratory Tests 09/29/22 20:58: Creatinine 0.87, Platelet Count 273 Results/Orders Lab Results Laboratory Tests Test 09/29/22 20:58 Range/Units White Blood Count 8.9 4.3-11.0 10^3/uL Red Blood Count 4.04 L 4.30-5.52 10^6/uL Hemoglobin 12.6 L 13.3-17.7 g/dL Hematocrit 35 L 40-54 % Mean Corpuscular Volume 88 80-99 fL Mean Corpuscular Hemoglobin 31 25-34 pg Mean Corpuscular Hemoglobin Concent 36 32-36 g/dL Red Cell Distribution Width 14.2 10.0-14.5 % Platelet Count 273 130-400 10^3/uL Mean Platelet Volume 10.0 9.0-12.2 fL Immature Granulocyte % (Auto) 1 % Neutrophils (%) (Auto) 60 42-75 % Lymphocytes (%) (Auto) 17 12-44 % Monocytes (%) (Auto) 8 0-12 % Eosinophils (%) (Auto) 14 H 0-10 % Basophils (%) (Auto) 0 0-10 % Neutrophils # (Auto) 5.3 1.8-7.8 10^3/uL Lymphocytes # (Auto) 1.5 1.0-4.0 10^3/uL Monocytes # (Auto) 0.7 0.0-1.0 10^3/uL Eosinophils # (Auto) 1.2 H 0.0-0.3 10^3/uL Basophils # (Auto) 0.0 0.0-0.1 10^3/uL Immature Granulocyte # (Auto) 0.1 0.0-0.1 10^3/uL Sodium Level 131 L 135-145 MMOL/L Potassium Level 4.3 3.6-5.0 MMOL/L Chloride Level 100 98-107 MMOL/L Carbon Dioxide Level 18 L 21-32 MMOL/L Anion Gap 13 5-14 MMOL/L Blood Urea Nitrogen 17 7-18 MG/DL Creatinine 0.87 0.60-1.30 MG/DL Estimat Glomerular Filtration Rate 95 BUN/Creatinine Ratio 20 Glucose Level 149 H 70-105 MG/DL Calcium Level 9.4 8.5-10.1 MG/DL Troponin I < 0.028 <0.028 NG/ML My Orders Orders - KIARA MAX DO Basic Metabolic Panel (09/29/22 21:13) Troponin I [place] (09/29/22 21:13) Ekg Tracing (09/29/22 21:13) Cbc With Automated Diff (09/29/22 21:13) Albuterol/Ipra Inhalation Soln (Duoneb I (09/29/22 21:15) Methylprednisolone Sod Succ (Solu-Medrol (09/29/22 21:15) Svn Small Volume Nebulizer (09/29/22 21:13) Albuterol/Ipra Inhalation Soln (Duoneb I (09/29/22 21:15) Ed Admission (Communication) (09/29/22 22:41) Benzonatate Capsule (Tessalon Perles) (09/29/22 23:45) Medications Given in ED Vital Signs/I&O 09/29/22 09/29/22 21:00 21:20 Temp 36.4 Pulse 92 77 Resp 23 B/P (MAP) 196/103 (134) Pulse Ox 96 99 O2 Delivery Room Air O2 Flow Rate 40.00 Capillary Refill : Blood Pressure Mean: 134 Departure Communication (Admissions) Patient initially with significant respiratory distress. Though he is oxygenating well he had severe increased work of breathing. I started on BiPAP which improved dramatically. After DuoNeb he has minimal wheezing. He is complaining about a headache from the BiPAP pressing on the bridge of his nose. We remove the BiPAP placed on 2 L of oxygen via nasal cannula which she tolerated well. I am concerned that if we discharged home that he will continue to worsen so with that we will go ahead and admit him since he is already failed outpatient therapy. He is comfortable agreeable to admission at this time. His chest x-ray was clear this morning, I do not see the need to repeat it at this time. He has no evidence for DVT, PE. He has no known lung pathology however symptoms related to some form of reactive airway disease versus currently undiagnosed pulmonary process. I spoke to Dr. Allred who accepts the patient in admission I placed bridging orders. Impression Primary Impression: Respiratory distress Additional Impression: Wheezing Disposition: ADMITTED INPATIENT Condition: Stable Admissions Decision to Admit Reason: Admit from ER (General) Departure-Patient Inst. Referrals: KALI DE LA GARZA MD (PCP/Family) Primary Care Physician KIARA MAX DO Sep 29, 2022 22:41
[2022-09-29] MEDS ORDERED: BENZONATATE 100 MG (TESSALON) CAPSULE PO SCH (23:45)
[2022-09-30] VITALS (9 sets, daily range): BP systolic 132–196; BP diastolic 56–103
[2022-09-30] MEDS ORDERED: RT-ALBUTEROL/IPRATROPIUM 3 ML (DUONEB) VIAL INH PRN (01:15)
[2022-09-30] MEDS: RT-ALBUTEROL/IPRATROPIUM 3 ML (DUONEB) VIAL INH SCH ×3 (03:29→20:26)
[2022-09-30] MEDS: CATHETER FLUSH 10 ML SYR IVP SCH ×3 (06:05→21:05)
[2022-09-30] MEDS ORDERED: PANTOPRAZOLE 40 MG (PROTONIX) TAB PO NR (11:00)
[2022-09-30] MEDS ORDERED: predniSONE 20 MG TAB PO NR (11:00)
[2022-09-30] MEDS ORDERED: LOSARTAN 100 MG (COZAAR) TABLET PO NR (11:00)
[2022-09-30] MEDS ORDERED: ASPIRIN E.C. 81 MG (ECOTRIN) TAB PO NR (11:00)
[2022-09-30] MEDS ORDERED: MAGNESIUM OXIDE (MAG-OX)400 MG TAB PO NR (11:00)
--- NOTE | 2022-09-30 11:45 | History & Physical-Hospitalist ---
History of Present Illness HPI/Chief Complaint Pt is 66-year-old male with past medical history of coronary artery disease hypertension who presented to the emergency department due to shortness of breath. He reports this is been going on for about a month and he has seen urgent care twice, his PCP wants, and the ER twice yesterday. He was discharged home from the ER after he felt better with a breathing treatment and steroids. He picked up some DuoNebs for his nebulizer at home and after taking some Mucinex and using that he got much more short of breath. He decided to return to the emergency department for evaluation and arrived in respiratory distress. He was placed on BiPAP. This improved his work of breathing significantly and he was started on steroids and breathing treatments and admitted given that he failed outpatient management. This morning he is off of oxygen and off of BiPAP and reports feeling much better though he is still wheezing. He reports he has seen Dr. Bansal who is a shoe shanker at [place] and had PFTs and was told they were normal. He has been treated with inhalers, steroids, antibiotics without resolution of his symptoms. Source: patient, family Date Seen 09/30/22 Time Seen by a Provider: 11:45 Attending Physician Jim Dunbar MD PCP Admitting Physician: Jem Allred MD Attending Physician: Jem Allred MD Referring Physician Date of Admission Sep 30, 2022 at 00:32 Home Medications & Allergies Home Medications Reviewed patient Home Medication Reconciliation performed by pharmacy medication reconciliations certified dialysis technician and/or nursing. Patients Allergies have been reviewed. Allergies Allergies Coded Allergies levofloxacin (Unverified Allergy, Mild, LEG/ BONE PAIN, 11/26/18) Sulfa (Sulfonamide Antibiotics) (Verified Allergy, Unknown, 11/26/18) dextromethorphan (Verified Allergy, Unknown, 11/26/18) meperidine (Unverified Adverse Reaction, Unknown, 11/26/18) Past Ocfccbu-Imkfos-Mftbcz Hx Patient Social History Marrital Status: Tobacco Use?: No Smoking Status: Former Smoker Use of E-Cig and/or Vaping dev: No Substance use?: No Alcohol Use?: No Alcohol type: Beer Alcohol Frequency: Daily Additional Alcohol Comments: one or two after work daily Pt feels they are or have been: No Immunizations Up To Date Tetanus Booster (TDap): Unknown Hepatitis A: No Hepatitis B: No Seasonal Allergies Seasonal Allergies: No Current Status Advance Directives: No Communicates: Verbally Primary Language: Ivorian Preferred Spoken Language: Ivorian Is interpretation needed?: No Sensory deficits: Hearing impairment Implanted or Applied Medical D: Stents Past Medical History Surgeries: Abdominal, Appendectomy, Cardiac, Coronary Stent, Gallbladder, Orthopedic Currently Using CPAP: No Currently Using BIPAP: No Coronary Artery Disease, High Cholesterol, Hypertension, Irregular Heartbeat, Palpitations Sexually Transmitted Disease: No HIV/AIDS: No Gastroesophageal Reflux, Diverticulosis Chronic Back Pain Loss of Vision: Denies Hearing Impairment: Hard of Hearing Anxiety Blood Disorders: Yes (tularemia) Adverse Reaction/Blood Tranf: No Family Medical History Reviewed Nursing Family Hx No Pertinent Family Hx SOCIAL HISTORY: -SMOKING -ETOH -DRUGS PAST SURGICAL HISTORY: -CARDIAC CATH 07/22/[address] WOOD: IMPRESSION: 1. Mild systemic hypertension. 2. Patent stents in the mid and distal segment of the left anterior descending coronary artery with a 50% stenosis in the proximal segment of the vessel. 3. The right coronary artery is dominant contained mild disease. 4. The patient is known to have normal left ventricular systolic function with an estimated ejection fraction of 60% by echocardiogram obtained on 12/21/2020 Review of Systems Constitutional: see HPI Physical Exam Physical Exam Vital Signs Vital Signs - First Documented 09/29/22 09/29/22 09/30/22 21:00 21:20 00:58 Temp 36.4 Pulse 92 Resp 23 B/P (MAP) 196/103 (134) Pulse Ox 96 O2 Delivery Room Air O2 Flow Rate 40.00 FiO2 21 Capillary Refill : Height, Weight, BMI Height: 6'0.00" Weight: 190lbs. 0.0oz. 86.070685fn; 26.66 BMI Method:Stated General Appearance: No Apparent Distress, WD/WN Respiratory: No Accessory Muscle Use, No Respiratory Distress, Wheezing Cardiovascular: Regular Rate, Rhythm, No Murmur Gastrointestinal: Normal Bowel Sounds, Non Tender, Soft Extremity: No Pedal Edema Neurologic/Psychiatric: Alert, Oriented x3, 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 Results Results/Procedures Labs Laboratory Tests 09/29/22 20:58 09/30/22 12:45 Patient resulted labs reviewed. Imaging: Reviewed Imaging Report Imaging [facility] [place] NAME: CHELSI FORDE [facility] REC#: [id number] PT STATUS: REG ER : 1955 PHYSICIAN: BIBI DE LUNA MD ADMIT DATE: 09/29/22/ER Signed Date of Exam:09/29/22 CHEST PA/LAT (2 VIEW) EXAMINATION: Chest 2 view HISTORY: cough, SOB; COMPARISON: 03/06/2018 FINDINGS: Heart size and pulmonary vasculature are normal. The lungs are clear without consolidation, pleural effusion, or pneumothorax. The osseous structures are intact. IMPRESSION: 1. No acute radiographic abnormality in the chest. 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
[2022-09-30] MEDS ORDERED: ALBU18HF2 INH (12:47)
[2022-09-30] MEDS ORDERED: DOXY100C5 PO (12:47)
[2022-09-30] MEDS ORDERED: CLN.1T PO (12:47)
[2022-09-30] MEDS ORDERED: LORA10TA7 PO (12:47)
[2022-09-30] MEDS ORDERED: SILD100T PO (12:47)
[2022-09-30] MEDS ORDERED: MAGN250C PO (12:47)
[2022-09-30] MEDS: aCETylcysteine 20% (MUCOMYST) 4 ML SOLN VIAL INH SCH ×2 (13:00→20:26)
[2022-09-30 13:08] LABS: CALCIUM 9.4 MG/DL (8.5-10.1)
[2022-09-30 13:12] LABS: CREATININE SERUM 0.81 MG/DL (0.60-1.30)
[2022-09-30 13:15] LABS: MAGNESIUM 1.5 MG/DL (1.6-2.4)
[2022-09-30] MEDS ORDERED: ALPRAZolam 0.25 MG (XANAX) TAB PO PRN (15:15)
[2022-09-30] MEDS ORDERED: cloNIDine 0.1 MG (CATAPRES) TAB PO PRN (15:15)
[2022-09-30] MEDS: MAGNESIUM 1 GM/100 ML IVPB 100 ML IV SCH ×2 (18:32→18:40)
[2022-10-01] MEDS: RT-ALBUTEROL/IPRATROPIUM 3 ML (DUONEB) VIAL INH SCH ×2 (02:49→07:35)
[2022-10-01] MEDS: aCETylcysteine 20% (MUCOMYST) 4 ML SOLN VIAL INH SCH ×2 (02:49→07:34)
[2022-10-01 03:36] VITALS: BP 119/57
[2022-10-01] MEDS: CATHETER FLUSH 10 ML SYR IVP SCH (05:57)
[2022-10-01 06:03] LABS: HEMATOCRIT 32 % (40-54); HEMOGLOBIN 11.2 g/dL (13.3-17.7); MEAN CORPUSCULAR HEMOGLOBIN 31 pg (25-34); MEAN CORPUSCULAR HGB CONC 35 g/dL (32-36); MEAN CORPUSCULAR VOLUME 88 fL (80-99); MEAN PLATELET VOLUME 9.7 fL (9.0-12.2); PLATELET COUNT 255 10^3/uL (130-400); WHITE BLOOD COUNT 13.3 10^3/uL (4.3-11.0)
[2022-10-01 06:26] LABS: POTASSIUM 3.9 MMOL/L (3.6-5.0)
[2022-10-01 06:27] LABS: CALCIUM 9.5 MG/DL (8.5-10.1)
[2022-10-01 06:32] LABS: CREATININE SERUM 0.75 MG/DL (0.60-1.30)
[2022-10-01 06:34] LABS: MAGNESIUM 1.9 MG/DL (1.6-2.4)
[2022-10-01] MEDS ORDERED: predniSONE 20 MG TAB PO SCH (07:00)
[2022-10-01 08:48] VITALS: BP 147/73
[2022-10-01] MEDS ORDERED: LORATADINE (CLARITIN) 10 MG TAB PO SCH (09:00)
[2022-10-01] MEDS ORDERED: TAMSULOSIN 0.4 MG (FLOMAX) CAP PO SCH (09:00)
[2022-10-01] MEDS ORDERED: ASPIRIN E.C. 81 MG (ECOTRIN) TAB PO SCH (09:00)
[2022-10-01] MEDS ORDERED: PANTOPRAZOLE 40 MG (PROTONIX) TAB PO SCH (09:00)
[2022-10-01] MEDS ORDERED: LOSARTAN 100 MG (COZAAR) TABLET PO SCH (09:00)
[2022-10-01] MEDS ORDERED: PRED10TA22 PO (11:27)
[2022-10-01] MEDS ORDERED: FLUT1BLS IH (11:27)
[2022-10-01] MEDS ORDERED: LEVA1.2543 INH (11:27)
--- NOTE | 2022-10-01 11:30 | Discharge Inst-Simple/Standard ---
Discharge Inst-Standard Patient Instructions/Follow Up Plan of Care/Instructions/FU: Please continue to take your medications as written. Please follow up with your primary care doctor to follow up this hospital stay. Activity as Tolerated: Yes Discharge Diet: Cardiac Diet Return to The Hospital For: Chest pain, shortness of breath, fever, weakness, if you feel you are getting worse. KATHERINE FIELD MD Oct 01, 2022 11:30 am
--- NOTE | 2022-10-01 11:30 | Discharge Summary ---
Diagnosis/Chief Complaint Date of Admission Sep 30, 2022 at 12:32 am Date of Discharge Discharge Date: Oct 01, 2022 Admission Diagnosis Reactive airway disease Primary Care Jim De La Garza MD Discharge Diagnosis (1) Anxiety Status: Acute (2) Hypomagnesemia Status: Acute (3) Wheezing Status: Acute Discharge Summary Discharge Physical Exam Allergies: Coded Allergies: levofloxacin (Unverified Allergy, Mild, LEG/ BONE PAIN, 11/26/18) Sulfa (Sulfonamide Antibiotics) (Verified Allergy, Unknown, 11/26/18) dextromethorphan (Verified Allergy, Unknown, 11/26/18) meperidine (Unverified Adverse Reaction, Unknown, 11/26/18) Vitals & I&Os Vital Signs Date Time Temp Pulse Resp B/P (MAP) Pulse Ox O2 Delivery O2 Flow Rate FiO2 10/01/22 13:04 97 Room Air 10/01/22 12:22 37.1 59 18 138/73 (94) 10/01/22 11:31 2.00 09/30/22 00:58 21 General Appearance: No Apparent Distress, WD/WN Respiratory: Lungs Clear, No Accessory Muscle Use, No Respiratory Distress Cardiovascular: Regular Rate, Rhythm, No Murmur Neurologic/Psychiatric: Alert, Oriented x3 Hospital Course Patient was admitted to the hospital secondary to reactive airway disease. He denies any history of COPD or asthma though he does have a remote history of smoking. He has been seen by a ux architect in the past and had PFTs done which she reports were normal. Despite that over the past couple of months he has had progressive shortness of breath and wheezing. He has been treated by an urgent care twice and his primary care office once with antibiotics and steroids intermittently. He was seen in the emergency room the day before discharge and was given steroids and breathing treatments and was able to be discharged home but returned with worsening shortness of breath. He was admitted and treated with scheduled breathing treatments and continued steroids. His breathing improved significantly and he was able to be discharged home. I did start him on Breo Ellipta upon discharge as he did not appear to be on a controller inhaler. I continued him on a long taper of steroids. He reported doing better with Xopenex than albuterol so I sent for Xopenex for his nebulizer at home. He did have some hyponatremia as well and so your sodium was checked was pending upon discharge. He plans to schedule follow-up with his primary care physician, ux architect, and intelligence specialist to follow-up this visit. He already has follow- up scheduled with his liquor commissioner for this week for both a stress test and an echo. Labs (last 24 hrs) Patient resulted labs reviewed. Pending Labs Imaging: Reviewed Imaging Report Discussion & Recommendations Discharge Planning: >30 minutes discharge planning Discharge Home Medications: Active Scripts Active Breo Ellipta 200-25 Mcg INH (Fluticasone/Vilanterol) 200 Mcg-25 Mcg/Dose Blst.w.dev 1 Each IH DAILY Prednisone 10 Mg Tab.ds.pk 10 Mg PO DAILY Take 6 tabs(60mg)daily,decrease by 1 tab(10mg)every other day. Levalbuterol HCl 1.25 Mg/3 Ml Vial.neb 1.25 Mg INH [id number] Reported Clonidine HCl 0.1 Mg Tablet 0.1 Mg PO BID PRN Viagra (Sildenafil Citrate) 100 Mg Tablet 100 Mg PO UD PRN Magnesium (Magnesium Citrate and Oxide) 250 Mg Capsule 250 Mg PO DAILY Loratadine 10 Mg Tablet 10 Mg PO DAILY Ventolin Hfa (Albuterol Sulfate) 90 Mcg Hfa.aer.ad 2 Puff INH Q6H PRN Doxycycline Hyclate 100 Mg Capsule 100 Mg PO BID FILLED 09-24-2022 #20/10 DAY SUPPLY ALPRAZolam 0.25 Mg Tablet 0.25 Mg PO BID PRN Losartan Potassium 100 Mg Tablet 100 Mg PO DAILY Flomax (Tamsulosin HCl) 0.4 Mg Cap 0.4 Mg PO DAILY Diltiazem 24Hr ER (Diltiazem HCl) 180 Mg Cap.er.24h 180 Mg PO HS Omeprazole 40 Mg Capsule. 40 Mg PO DAILY Aspirin EC (Aspirin) 81 Mg Tablet. 81 Mg PO DAILY Instructions to patient/family Please see electronic discharge instructions given to patient. Copy Copies To 1: JIM DE LA GARZA MD, KATELYN M MD Oct 01, 2022 11:30
[2022-10-01 11:31] VITALS: BP 147/73
[2022-10-01 12:22] VITALS: BP 138/73
[2022-10-01] MEDS ORDERED: RT-LEVALBUTEROL (XOPENEX) 1.25 MG/3 ML NEB NON-FORMULARY INH SCH (15:00)
== END 2022-10-01 11:30 | disposition home or self-care (01) ==
LOC: EDUNIT# 20:45 → ER 20:47 → 4TH 20:48 → UNDOADMOB 09-30 00:32 → 4TH 09-30 00:32 → UNDODISOB 10-01 13:15
PROVIDERS: ADMIT Internal Medicine; ATTEND Internal Medicine
DX: J45.909 Unspecified asthma, uncomplicated (principal); F41.9 Anxiety disorder, unspecified; E83.42 Hypomagnesemia; I10 Essential (primary) hypertension; I25.10 Atherosclerotic heart disease of native coronary artery without angina pectoris; Z79.899 Other long term (current) drug therapy; Z87.891 Personal history of nicotine dependence; Z86.16 Personal history of COVID-19
CPT/HCPCS: 80048 ×3; 83735 ×2; 84300; 84484; 85025; 85027; 93005; 94640 ×3; 94660; 96366; 96374; 96375; 99284; G0378; 36415

== ENCOUNTER 2022-10-10 18:19 | Emergency (ER) | payer MEDICARE, OTHER, MEDICAID ==
[~2022-10-10] VITALS: Ht 182 cm; Wt 88.0 kg
[~2022-10-10 18:19] MED LIST changes: +ALBU18HF2 INH; +DOXY100C5 PO; +FLUT1BLS IH; +LEVA1.2543 INH; +LORA10TA7 PO; +MAGN250C PO; +PRED10TA22 PO; +SILD100T PO
[2022-10-10] MEDS ORDERED: LACTATED RINGERS 1,000 ML IV ONE (18:45)
--- NOTE | 2022-10-10 18:59 | ED GI ---
General Chief Complaint: Abdominal/GI Problems Stated Complaint: DIARRHEA Nursing Triage Note: PT AMB TO TRIAGE. PT CO OF DIARRHEA X4 DAYS, PT HAS PROBLEMS W LOW MAG, LOW NA. PT STATES STARTING TO FEEL WEAK AND SHAKEY. PT CO OF ABD PAIN 07/22 Source of Information: Patient History of Present Illness Date Seen by Provider: October 10, 2022 Time Seen by Provider: 18:45 Initial Comments PT ARRIVES VIA POV FROM HOME PT STATES HE HAS BEEN HAVING DIARRHEA SINCE Monday10/07/22 HE HAS HAD 5 STOOLS TODAY, NO BLACK/BLOODY/TARRY STOOLS. HAS MILD MID ABDOMINAL PAIN HE HAD NAUSEA ON MONDAY AND MONDAY, NONE SINCE. HE HAD FEVER OF 100 ON MONDAY, TOOK 2 TYLENOL AND NO FEVER SINCE THEN HE HAS HAD DECREASED APPETITE, BUT IS BETTER SINCE YESTERDAY--HE HAS BEEN EATING EGGS, TOAST, OTHER FOODS, AND DRINKING WATER, GATORADE AND PEDIALYTE. HE THINKS HE IS VOIDING A NORMAL AMOUNT, BUT NOT SURE. NO KNOWN SICK CONTACTS OR SUSPICIOUS FOODS HE DENIES RECENT ANTIBIOTIC USE ( HOWEVER, HE WAS ADMITTED HERE 2 WEEKS AGO FOR RESPIRATORY ILLNESS AND WAS ON IV ANTIBIOTICS AT THAT TIME) HE HAS NOT SOUGHT CARE UNTIL TONIGHT SYMPTOMS NO DIFFERENT TONIGHT. PT HAS HAD MULTIPLE ABDOMINAL SURGERIES INCLUDING APPENDECTOMY, CHOLECYSTECTOMY WITH MANY COMPLICATIONS, REQUIRING REPEAT OPEN ABDOMINAL SURGERIES WITH BOWEL REPAIR THEN STAPH INFECTION AND LATER VENTRAL HERNIA REPAIR WITH MESH. HE HAS ALSO HAD BOWEL OBSTRUCTION IN THE PAST. PT WITH A MULTITUDE OF VISITS HERE FOR VARIOUS COMPLAINTS PT WAS ADMITTED HERE 09/29-10/01 FOR RESPIRATORY DISTRESS/REACTIVE AIRWAYS AND WAS ON IV ANTIBIOTICS PCP: DR. DE LA GARZA IN [place] Allergies and Home Medications Allergies Coded Allergies: levofloxacin (Unverified Allergy, Mild, LEG/ BONE PAIN, 11/26/18) Sulfa (Sulfonamide Antibiotics) (Verified Allergy, Unknown, 11/26/18) dextromethorphan (Verified Allergy, Unknown, 11/26/18) meperidine (Unverified Adverse Reaction, Unknown, 11/26/18) Patient Home Medication List ALPRAZolam (ALPRAZolam) 0.25 Mg Tablet, 0.25 MG PO BID PRN for ANXIETY, (Reported) Entered as Reported by: NAS TEJADA on 07/22/21 0927 Albuterol Sulfate (Ventolin Hfa) 90 Mcg Hfa.aer.ad, 2 PUFF INH Q6H PRN for SHORTNESS OF BREATH, (Reported) Entered as Reported by: PHILIPP OROZCO on 09/30/221246 Aspirin (Aspirin EC) 81 Mg Tablet.dr, 81 MG PO DAILY, (Reported) Entered as Reported by: NAS TEJADA on 07/22/21918 Clonidine HCl (Clonidine HCl) 0.1 Mg Tablet, 0.1 MG PO BID PRN for BLOOD PRESSURE, (Reported) Entered as Reported by: PHILIPP OROZCO on 09/30/221246 Diltiazem HCl (Diltiazem 24Hr ER) 180 Mg Cap.er.24h, 180 MG PO HS, (Reported) Entered as Reported by: NAS TEJADA on 07/22/21918 Doxycycline Hyclate (Doxycycline Hyclate) 100 Mg Capsule, 100 MG PO BID, (Repor edwin) Entered as Reported by: PHILIPP OROZCO on 09/30/221246 Fluticasone/Vilanterol (Breo Ellipta 200-25 Mcg INH) 200 Mcg-25 Mcg/Dose Blst.w.dev, 1 EACH IH DAILY Prescribed by: KATHERINE FIELD on 10/01/221126 Levalbuterol HCl (Levalbuterol HCl) 1.25 Mg/3 Ml Vial.neb, 1.25 MG INH RTQ6HR Prescribed by: KATHERINE FIELD on 10/01/221126 Loratadine (Loratadine) 10 Mg Tablet, 10 MG PO DAILY, (Reported) Entered as Reported by: PHILIPP OROZCO on 09/30/221246 Losartan Potassium (Losartan Potassium) 100 Mg Tablet, 100 MG PO DAILY, (Reported) Entered as Reported by: NAS TEJADA on 07/22/21918 Magnesium Citrate and Oxide (Magnesium) 250 Mg Capsule, 250 MG PO DAILY, (Reported) Entered as Reported by: PHILIPP OROZCO on 09/30/221246 Omeprazole (Omeprazole) 40 Mg Capsule.dr, 40 MG PO DAILY, (Reported) Entered as Reported by: NAS TEJADA on 07/22/21918 Prednisone (Prednisone) 10 Mg Tab.ds.pk, 10 MG PO DAILY Prescribed by: KATHERINE FIELD on 10/01/221126 Sildenafil Citrate (Viagra) 100 Mg Tablet, 100 MG PO UD PRN for ED, (Reported) Entered as Reported by: PHILIPP OROZCO on 09/30/22 1247 Tamsulosin HCl (Flomax) 0.4 Mg Cap, 0.4 MG PO DAILY, (Reported) Entered as Reported by: NAS TEJADA on 07/22/21 0919 Review of Systems Review of Systems Constitutional: see HPI Respiratory: No Symptoms Reported Cardiovascular: No Symptoms Reported Gastrointestinal: See HPI Genitourinary: No Symptoms Reported Musculoskeletal: no symptoms reported Skin: no symptoms reported Psychiatric/Neurological: No Symptoms Reported Endocrine: No Symptoms Reported Hematologic/Lymphatic: No Symptoms Reported Past Xzrkavy-Tczjqk-Jluqpw Hx Patient Social History Tobacco Use?: No Substance use?: No Alcohol Use?: No Pt feels they are or have been: No Seasonal Allergies Seasonal Allergies: No Past Medical History Surgery/Hospitalization HX: ABD HERNIA, APPY, MANSI, CARDIAC STENTS, LOWER BACK, CAD, PALPITATIONS, GERD, DIVERTICULOSIS. Surgeries: Yes (BACK, HERNIAS, FACE LACERATION, ) Abdominal, Appendectomy, Bowel Surgery, Cardiac, Coronary Stent, Gallbladder, Orthopedic Respiratory: No (COVID -19 [place] 04/2020--NO HOSPITALIZATION OR TREATMENT) Currently Using CPAP: No Currently Using BIPAP: No Cardiac: Yes (STENT X2) Coronary Artery Disease, High Cholesterol, Hypertension, Irregular Heartbeat, Palpitations Neurological: No Reproductive Disorders: No Sexually Transmitted Disease: No HIV/AIDS: No Genitourinary: No Gastrointestinal: Yes Gastroesophageal Reflux, Diverticulosis Musculoskeletal: Yes (BACK SURGERY; L1 COMPRESSION FX WITH KYPHOPLASTY 01/2015;SPINAL STENOSIS ) Chronic Back Pain Endocrine: No HEENT: Yes (READING GLASSES) Loss of Vision: Denies Hearing Impairment: Hard of Hearing Cancer: No Psychosocial: Yes Anxiety Integumentary: No Blood Disorders: Yes (tularemia) Adverse Reaction/Blood Tranf: No Family Medical History No Pertinent Family Hx SOCIAL HISTORY: -SMOKING--FORMER SMOKER, QUIT A FEW YEARS AGO -ETOH--DENIES USE -DRUGS--DENIES USE PAST SURGICAL HISTORY: -APPENDECTOMY -CHOLECYSTECTOMY WITH COMPLICATIONS INCLUDING BOWEL INJURY, REQUIRING BOWEL REPAIR, WITH SUBSEQUENT STAPH INFECTION -VENTRAL HERNIA REPAIR WITH MESH -CARDIAC CATH 07/22/[address] WOOD: IMPRESSION: 1. Mild systemic hypertension. 2. Patent stents in the mid and distal segment of the left anterior descending coronary artery with a 50% stenosis in the proximal segment of the vessel. 3. The right coronary artery is dominant contained mild disease. 4. The patient is known to have normal left ventricular systolic function with an estimated ejection fraction of 60% by echocardiogram obtained on 12/21/2020 Physical Exam Vital Signs Vital Signs - First Documented 10/10/22 18:30 Temp 36.5 Pulse 103 Resp 18 B/P (MAP) 117/75 (89) Pulse Ox 98 Capillary Refill : Height/Weight/BMI Height: 6'0.00" Weight: 190lbs. 0.0oz. 86.553624qk; 26.00 BMI Method:Stated Progress/Results/Core Measures Results/Orders Lab Results Laboratory Tests Test 10/10/22 19:00 10/10/22 19:08 Range/Units White Blood Count 11.7 H 4.3-11.0 10^3/uL Red Blood Count 4.00 L 4.30-5.52 10^6/uL Hemoglobin 12.3 L 13.3-17.7 g/dL Hematocrit 36 L 40-54 % Mean Corpuscular Volume 90 80-99 fL Mean Corpuscular Hemoglobin 31 25-34 pg Mean Corpuscular Hemoglobin Concent 34 32-36 g/dL Red Cell Distribution Width 13.9 10.0-14.5 % Platelet Count 227 130-400 10^3/uL Mean Platelet Volume 10.1 9.0-12.2 fL Immature Granulocyte % (Auto) 0 % Neutrophils (%) (Auto) 79 H 42-75 % Lymphocytes (%) (Auto) 10 L 12-44 % Monocytes (%) (Auto) 7 0-12 % Eosinophils (%) (Auto) 3 0-10 % Basophils (%) (Auto) 0 0-10 % Neutrophils # (Auto) 9.3 H 1.8-7.8 10^3/uL Lymphocytes # (Auto) 1.1 1.0-4.0 10^3/uL Monocytes # (Auto) 0.9 0.0-1.0 10^3/uL Eosinophils # (Auto) 0.4 H 0.0-0.3 10^3/uL Basophils # (Auto) 0.0 0.0-0.1 10^3/uL Immature Granulocyte # (Auto) 0.1 0.0-0.1 10^3/uL Urine Color YELLOW Urine Clarity CLEAR Urine pH 6.0 5-9 Urine Specific [place] 1.025 H 1.016-1.022 Urine Protein 1+ H NEGATIVE Urine Glucose (UA) NEGATIVE NEGATIVE Urine Ketones TRACE H NEGATIVE Urine Nitrite NEGATIVE NEGATIVE Urine Bilirubin NEGATIVE NEGATIVE Urine Urobilinogen 0.2 < = 1.0 MG/DL Urine Leukocyte Esterase NEGATIVE NEGATIVE Urine RBC (Auto) NEGATIVE NEGATIVE Urine RBC NONE /HPF Urine WBC NONE /HPF Urine Squamous Epithelial Cells NONE /HPF Urine Crystals PRESENT H /LPF Urine Amorphous Sediment RARE STANTON URATES H /LPF Urine Bacteria TRACE /HPF Urine Casts NONE /LPF Urine Mucus LARGE H /LPF Urine Culture Indicated NO Sodium Level 135 135-145 MMOL/L Potassium Level 3.3 L 3.6-5.0 MMOL/L Chloride Level 107 98-107 MMOL/L Carbon Dioxide Level 18 L 21-32 MMOL/L Anion Gap 10 5-14 MMOL/L Blood Urea Nitrogen 16 7-18 MG/DL Creatinine 0.82 0.60-1.30 MG/DL Estimat Glomerular Filtration Rate 97 BUN/Creatinine Ratio 20 Glucose Level 103 70-105 MG/DL Calcium Level 8.8 8.5-10.1 MG/DL Corrected Calcium 9.0 8.5-10.1 MG/DL Magnesium Level 1.4 L 1.6-2.4 MG/DL Total Bilirubin 1.1 H 0.1-1.0 MG/DL Aspartate Amino Transf (AST/SGOT) 21 5-34 U/L Alanine Aminotransferase (ALT/SGPT) 15 0-55 U/L Alkaline Phosphatase 60 40-136 U/L Total Protein 6.6 6.4-8.2 GM/DL Albumin 3.7 3.2-4.5 GM/DL Influenza Type A (RT-PCR) Not Detected Not Detecte Influenza Type B (RT-PCR) Not Detected Not Detecte SARS-CoV-2 RNA (RT-PCR) Not Detected Not Detecte My Orders Orders - GABRIELA BLAIR DO Ed Iv/Invasive Line Start (10/10/22 18:45) Monitor-Rhythm Ecg Trace Only (10/10/22 18:45) Cbc With Automated Diff (10/10/22 18:45) Comprehensive Metabolic Panel (10/10/22 18:45) Magnesium (10/10/22 18:45) Ua Culture If Indicated (10/10/22 18:45) Ed Iv/Invasive Line Start (10/10/22 18:45) Lactated Ringers (Lr 1000 Ml Iv Solution (10/10/22 18:45) Covid 19 Inhouse Test (10/10/22 18:45) Influenza A And B By Pcr (10/10/22 18:45) Isolation Central Supply Req (10/10/22 18:45) Ct Abdomen/Pelvis W (10/10/22 19:36) Iohexol Injection (Omnipaque 350 Mg/Ml 1 (10/10/22 19:45) Received Contrast (Hold Metformin- Contr (10/10/22 19:45) Ns (Ivpb) (Sodium Chloride 0.9% Ivpb Bag (10/10/22 19:45) Medications Given in ED Current Medications Medications Dose Ordered Sig/Ankita Route Start Time Stop Time Status Last Admin Dose Admin Iohexol 100 ml ONCE ONCE IV 10/10/22 19:45 10/10/22 19:46 DC 10/10/22 19:47 80 ML Lactated Ringer's 1,000 ml @ 0 mls/hr Q0M ONCE IV 10/10/22 18:45 10/10/22 18:46 DC 10/10/22 19:09 1,000 MLS/HR Sodium Chloride 100 ml ONCE ONCE IV 10/10/22 19:45 10/10/22 19:46 DC 10/10/22 19:47 80 ML Vital Signs/I&O 10/10/22 18:30 Temp 36.5 Pulse 103 Resp 18 B/P (MAP) 117/75 (89) Pulse Ox 98 Blood Pressure Mean: 89 Progress Progress Note : Progress Note NO DIARRHEA DURING ER STAY Diagnostic Imaging Comments CT ABDOMEN/PELVIS--PER RADIOLOGIST REPORT AT 2018 FINDINGS: Included views of the lung bases demonstrates scarring in the left lower lobe. The liver, spleen, adrenal glands, and pancreas are normal. The gallbladder is postsurgical. The kidneys demonstrating unchanged tiny cysts in the right kidney. No nephrolithiasis or hydronephrosis. Redemonstration of large right inguinal hernias containing long segments of small bowel and extending beyond the [id number] without evidence of obstruction or inflammation. Small fat-containing left inguinal hernia with postsurgical changes likely from prior hernia repair. Scattered diverticulosis of the sigmoid and descending colon without evidence of acute diverticulitis. Aortoiliac atherosclerosis without aneurysm. No abdominal pelvic lymphadenopathy. No free air, loculated fluid collection, or ascites. Small duodenal diverticulum is noted. The osseous structures demonstrate no lytic or sclerotic bone lesions. Kyphoplasty changes at L1. Moderate multilevel spinal canal narrowing due to degenerative change. IMPRESSION: No acute findings in the abdomen or pelvis. Redemonstration of large right inguinal hernia containing long segments of small bowel without evidence of obstruction or herniation. Additional chronic/incidental findings as above. Reviewed: Reviewed by Me Departure Impression Primary Impression: Diarrhea Additional Impressions: Hypomagnesemia Hypokalemia Disposition: 01 HOME, SELF-CARE Condition: Stable Departure-Patient Inst. Decision time for Depature: 20:32 Referrals: KALI DE LA GARZA MD (PCP/Family) Primary Care Physician Patient Instructions: Low Magnesium Level (DC), Hypokalemia (DC), Diarrhea in Adolescents and Adults Add. Discharge Instructions: CLEAR LIQUIDS--WATER, BROTH,JELLO, GATORADE BRATS DIET--BANANAS, RICE, APPLESAUCE, TOAST, SALTINES INCREASE YOUR MAGNESIUM TABLET TO THREE TIMES A DAY INCREASE THE POTASSIUM IN YOUR DIET FOLLOW UP WITH YOUR DR THIS WEEK FOR FURTHER CARE--CALL IN THE MORNING TO SCHEDULE AN APPOINTMENT All discharge instructions reviewed with patient and/or family. Voiced understanding. Scripts Ondansetron (Ondansetron Odt) 4 Mg Tab.rapdis 4 MG PO Q4H for Nausea/Vomiting, #10 TAB Prov: GABRIELA BLAIR DO 10/10/22 Dicyclomine HCl (Dicyclomine HCl) 20 Mg Tablet 20 MG PO Q6H for Abdominal Pain, #20 TAB Prov: GABRIELA BLAIR DO 10/10/22 Lactobacillus Acidophilus (Acidophilus Lactobacillus) 1 Billion Unit/Gram Powder 1 GM MC QID for 10 Days, #1 EA Prov: GABRIELA BLAIR DO 10/10/22 GABRIELA BLAIR DO October 10, 2022 18:59
[2022-10-10 19:11] LABS: BASOPHILS % (AUTO) 0 % (0-10); EOSINOPHILS # (AUTO) 0.4 10^3/uL (0.0-0.3); EOSINOPHILS % (AUTO) 3 % (0-10); HEMATOCRIT 36 % (40-54); HEMOGLOBIN 12.3 g/dL (13.3-17.7); LYMPHOCYTES # (AUTO) 1.1 10^3/uL (1.0-4.0); LYMPHOCYTES % (AUTO) 10 % (12-44); MEAN CORPUSCULAR HEMOGLOBIN 31 pg (25-34); MEAN CORPUSCULAR HGB CONC 34 g/dL (32-36); MEAN CORPUSCULAR VOLUME 90 fL (80-99); MEAN PLATELET VOLUME 10.1 fL (9.0-12.2); MONOCYTES # (AUTO) 0.9 10^3/uL (0.0-1.0); MONOCYTES % (AUTO) 7 % (0-12); NEUTROPHILS # (AUTO) 9.3 10^3/uL (1.8-7.8); NEUTROPHILS % (AUTO) 79 % (42-75); PLATELET COUNT 227 10^3/uL (130-400); WHITE BLOOD COUNT 11.7 10^3/uL (4.3-11.0)
[2022-10-10 19:12] LABS: BILIRUBIN,URINE NEGATIVE (NEGATIVE); CLARITY,URINE CLEAR; COLOR,URINE YELLOW; GLUCOSE, URINE (UA) NEGATIVE (NEGATIVE); KETONES,URINE TRACE (NEGATIVE); LEUKOCYTE ESTERASE ,URINE NEGATIVE (NEGATIVE); NITRITE,URINE NEGATIVE (NEGATIVE); PROTEIN,URINE 1+ (NEGATIVE)
[2022-10-10 19:23] LABS: ALBUMIN 3.7 GM/DL (3.2-4.5); POTASSIUM 3.3 MMOL/L (3.6-5.0)
[2022-10-10 19:24] LABS: CALCIUM 8.8 MG/DL (8.5-10.1)
[2022-10-10 19:26] LABS: AMORPHOUS SEDIMENT,UR RARE AMOR URATES /LPF; BACTERIA,URINE TRACE /HPF; TOTAL PROTEIN 6.6 GM/DL (6.4-8.2)
[2022-10-10 19:27] LABS: BILIRUBIN,TOTAL 1.1 MG/DL (0.1-1.0)
[2022-10-10 19:29] LABS: CREATININE SERUM 0.82 MG/DL (0.60-1.30)
[2022-10-10 19:32] LABS: MAGNESIUM 1.4 MG/DL (1.6-2.4)
[2022-10-10] MEDS ORDERED: IOHEXOL 350 MG/ML 100 ML (OMNIPAQUE 350) VIAL IV ONE (19:45)
[2022-10-10] MEDS ORDERED: NS 100 ML (IVPB) BAG IV ONE (19:45)
[2022-10-10] MEDS ORDERED: HOLD METFORMIN - RECEIVED CONTRAST 20 ML VIAL IV SCH (19:45)
--- NOTE | 2022-10-10 20:15 | Diagnostic Imaging Report ---
PROCEDURE: CT abdomen and pelvis with contrast. TECHNIQUE: Multiple contiguous axial images were obtained through the abdomen and pelvis after administration of intravenous contrast. Auto Exposure Controls were utilized during the CT exam to meet ALARA standards for radiation dose reduction. All CT scans use one or more of the following dose optimizing techniques: automated exposure control, MA and/or KvP adjustment based on patient size and exam type or iterative reconstruction. INDICATION: Diarrhea, abdominal pain. COMPARISON: CT angiography of the abdomen and pelvis 10/28/2021 FINDINGS: Included views of the lung bases demonstrates scarring in the left lower lobe. The liver, spleen, adrenal glands, and pancreas are normal. The gallbladder is postsurgical. The kidneys demonstrating unchanged tiny cysts in the right kidney. No nephrolithiasis or hydronephrosis. Redemonstration of large right inguinal hernias containing long segments of small bowel and extending beyond the [id number] without evidence of obstruction or inflammation. Small fat-containing left inguinal hernia with postsurgical changes likely from prior hernia repair. Scattered diverticulosis of the sigmoid and descending colon without evidence of acute diverticulitis. Aortoiliac atherosclerosis without aneurysm. No abdominal pelvic lymphadenopathy. No free air, loculated fluid collection, or ascites. Small duodenal diverticulum is noted. The osseous structures demonstrate no lytic or sclerotic bone lesions. Kyphoplasty changes at L1. Moderate multilevel spinal canal narrowing due to degenerative change. IMPRESSION: No acute findings in the abdomen or pelvis. Redemonstration of large right inguinal hernia containing long segments of small bowel without evidence of obstruction or herniation. Additional chronic/incidental findings as above. Dictated by: Dictated on workstation # [id number]
[2022-10-10] MEDS ORDERED: MAGNESIUM OXIDE (MAG-OX)400 MG TAB PO ONE (20:30)
[2022-10-10] MEDS ORDERED: LACT1POW8 MC (20:37)
[2022-10-10] MEDS ORDERED: DICY20TA PO (20:37)
[2022-10-10] MEDS ORDERED: ONDA4TAB11 PO (20:37)
[2022-10-10 20:49] VITALS: BP 138/75
== END 2022-10-10 20:52 | disposition home or self-care (01) ==
LOC: EDUNIT# 18:19 → ER 18:21
DX: R19.7 Diarrhea, unspecified (principal); E83.42 Hypomagnesemia; E87.6 Hypokalemia; Z90.49 Acquired absence of other specified parts of digestive tract; Z98.890 Other specified postprocedural states; Z87.891 Personal history of nicotine dependence; Z20.822 Contact with and (suspected) exposure to COVID-19
CPT/HCPCS: 36415; 74177; 80053; 81000; 83735; 85025; 87636; 93041

== ENCOUNTER 2022-10-12 16:09 | Emergency (ER) | payer MEDICARE, OTHER, MEDICAID ==
[~2022-10-12] VITALS: Ht 182 cm; Wt 85.0 kg
[~2022-10-12 16:09] MED LIST changes: +DICY20TA PO; +LACT1POW8 MC; +ONDA4TAB11 PO
[2022-10-12 17:39] LABS: CLARITY,URINE CLEAR; COLOR,URINE YELLOW; GLUCOSE, URINE (UA) NEGATIVE (NEGATIVE); KETONES,URINE 1+ (NEGATIVE); LEUKOCYTE ESTERASE ,URINE NEGATIVE (NEGATIVE); NITRITE,URINE NEGATIVE (NEGATIVE); PH,URINE 5.5 (5-9); PROTEIN,URINE 2+ (NEGATIVE)
[2022-10-12 17:48] LABS: BASOPHILS % (AUTO) 0 % (0-10); EOSINOPHILS # (AUTO) 0.3 10^3/uL (0.0-0.3); EOSINOPHILS % (AUTO) 3 % (0-10); HEMATOCRIT 30 % (40-54); HEMOGLOBIN 10.7 g/dL (13.3-17.7); LYMPHOCYTES # (AUTO) 1.5 10^3/uL (1.0-4.0); LYMPHOCYTES % (AUTO) 15 % (12-44); MEAN CORPUSCULAR HEMOGLOBIN 31 pg (25-34); MEAN CORPUSCULAR HGB CONC 35 g/dL (32-36); MEAN CORPUSCULAR VOLUME 89 fL (80-99); MONOCYTES # (AUTO) 0.6 10^3/uL (0.0-1.0); MONOCYTES % (AUTO) 6 % (0-12); NEUTROPHILS # (AUTO) 7.6 10^3/uL (1.8-7.8); NEUTROPHILS % (AUTO) 76 % (42-75); PLATELET COUNT 243 10^3/uL (130-400)
[2022-10-12 17:54] LABS: ALBUMIN 3.7 GM/DL (3.2-4.5); POTASSIUM 3.4 MMOL/L (3.6-5.0)
[2022-10-12 17:56] LABS: TOTAL PROTEIN 6.5 GM/DL (6.4-8.2)
--- NOTE | 2022-10-12 17:57 | ED General ---
General Chief Complaint: General Problems/Pain Stated Complaint: SHAKEY LEGS| FEELING FAINT Nursing Triage Note: ARRIVED VIA AMB WITH COMPLAINTS OF FEELING WEAK, SEEING BLACK SPOTS, AND FEELINGS OF WANTING TO PASS OUT. WAS HERE ON MONDAY AND SEEN FOR DIARRHEA. STATES NOTHING WAS DONE FOR HIM AT VISIT BUT RECIEVED A BAG OF FLUID AND OFFERED MAG BUT MAG MAKES HIM HAVE DIARRHEA. Source of Information: Patient Exam Limitations: No Limitations History of Present Illness Date Seen by Provider: October 12, 2022 Allergies and Home Medications Allergies Coded Allergies: levofloxacin (Unverified Allergy, Mild, LEG/ BONE PAIN, 11/26/18) Sulfa (Sulfonamide Antibiotics) (Verified Allergy, Unknown, 11/26/18) dextromethorphan (Verified Allergy, Unknown, 11/26/18) meperidine (Unverified Adverse Reaction, Unknown, 11/26/18) Patient Home Medication List ALPRAZolam (ALPRAZolam) 0.25 Mg Tablet, 0.25 MG PO BID PRN for ANXIETY, (Reported) Entered as Reported by: NAS TEJADA on 07/22/21925 Albuterol Sulfate (Ventolin Hfa) 90 Mcg Hfa.aer.ad, 2 PUFF INH Q6H PRN for SHORTNESS OF BREATH, (Reported) Entered as Reported by: PHILIPP OROZCO on 09/30/22 124 Aspirin (Aspirin EC) 81 Mg Tablet.dr, 81 MG PO DAILY, (Reported) Entered as Reported by: NAS TEJADA on 07/22/21918 Clonidine HCl (Clonidine HCl) 0.1 Mg Tablet, 0.1 MG PO BID PRN for BLOOD PRESSURE, (Reported) Entered as Reported by: PHILIPP OROZCO on 09/30/22 124 Dicyclomine HCl (Dicyclomine HCl) 20 Mg Tablet, 20 MG PO Q6H Prescribed by: GABRIELA BLAIR on 10/10/222036 Diltiazem HCl (Diltiazem 24Hr ER) 180 Mg Cap.er.24h, 180 MG PO HS, (Reported) Entered as Reported by: NAS TEJADA on 07/22/21918 Doxycycline Hyclate (Doxycycline Hyclate) 100 Mg Capsule, 100 MG PO BID, (Reported) Entered as Reported by: PHILIPP OROZCO on 09/30/22 1247 Fluticasone/Vilanterol (Breo Ellipta 200-25 Mcg INH) 200 Mcg-25 Mcg/Dose Blst.w.dev, 1 EACH IH DAILY Prescribed by: KATHERINE FIELD on 10/01/221126 Lactobacillus Acidophilus (Acidophilus Lactobacillus) 1 Billion Unit/Gram Po wder, 1 GM MC QID Prescribed by: GABRIELA BLAIR on 10/10/222036 Levalbuterol HCl (Levalbuterol HCl) 1.25 Mg/3 Ml Vial.neb, 1.25 MG INH RTQ6HR Prescribed by: KATHERINE FIELD on 10/01/221126 Loratadine (Loratadine) 10 Mg Tablet, 10 MG PO DAILY, (Reported) Entered as Reported by: PHILIPP OROZCO on 09/30/221246 Losartan Potassium (Losartan Potassium) 100 Mg Tablet, 100 MG PO DAILY, (Reported) Entered as Reported by: NAS TEJADA on 07/22/21918 Magnesium Citrate and Oxide (Magnesium) 250 Mg Capsule, 250 MG PO DAILY, (Reported) Entered as Reported by: PHILIPP OROZCO on 09/30/221246 Nitrofurantoin Macrocrystal (Nitrofurantoin) 100 Mg Capsule, 100 MG PO BID Prescribed by: BHAKTI TEJEDA on 10/12/22 184 Omeprazole (Omeprazole) 40 Mg Capsule.dr, 40 MG PO DAILY, (Reported) Entered as Reported by: NAS TEJADA on 07/22/21918 Ondansetron (Ondansetron Odt) 4 Mg Tab.rapdis, 4 MG PO Q4H Prescribed by: GABRIELA BLAIR on 10/10/222036 Prednisone (Prednisone) 10 Mg Tab.ds.pk, 10 MG PO DAILY Prescribed by: KATHERINE FIELD on 10/01/221126 Sildenafil Citrate (Viagra) 100 Mg Tablet, 100 MG PO UD PRN for ED, (Reported) Entered as Reported by: PHILIPP OROZCO on 09/30/221246 Tamsulosin HCl (Flomax) 0.4 Mg Cap, 0.4 MG PO DAILY, (Reported) Entered as Reported by: NAS TEJADA on 07/22/21918 Past Osuojiv-Daznje-Axlzvg Hx Patient Social History Tobacco Use?: Yes Smoking Status: Former Smoker Substance use?: No Alcohol Use?: Yes Alcohol type: Beer Alcohol Frequency: Once in a while Seasonal Allergies Seasonal Allergies: No Past Medical History Surgery/Hospitalization HX: ABD HERNIA, APPY, MANSI, CARDIAC STENTS, LOWER BACK, CAD, PALPITATIONS, GERD, DIVERTICULOSIS. Surgeries: Yes (BACK, HERNIAS, FACE LACERATION, ) Abdominal, Appendectomy, Bowel Surgery, Cardiac, Coronary Stent, Gallbladder, Orthopedic Respiratory: No (COVID -19 [place] 04/2020--NO HOSPITALIZATION OR TREATMENT) Currently Using CPAP: No Currently Using BIPAP: No Cardiac: Yes (STENT X2) Coronary Artery Disease, High Cholesterol, Hypertension, Irregular Heartbeat, Palpitations Neurological: No Reproductive Disorders: No Sexually Transmitted Disease: No HIV/AIDS: No Genitourinary: No Gastrointestinal: Yes Gastroesophageal Reflux, Diverticulosis Musculoskeletal: Yes (BACK SURGERY; L1 COMPRESSION FX WITH KYPHOPLASTY 01/2015;SPINAL STENOSIS ) Chronic Back Pain Endocrine: No HEENT: Yes (READING GLASSES) Loss of Vision: Denies Hearing Impairment: Hard of Hearing Cancer: No Psychosocial: Yes Anxiety Integumentary: No Blood Disorders: Yes (tularemia) Adverse Reaction/Blood Tranf: No Family Medical History No Pertinent Family Hx SOCIAL HISTORY: -SMOKING--FORMER SMOKER, QUIT A FEW YEARS AGO -ETOH--DENIES USE -DRUGS--DENIES USE PAST SURGICAL HISTORY: -APPENDECTOMY -CHOLECYSTECTOMY WITH COMPLICATIONS INCLUDING BOWEL INJURY, REQUIRING BOWEL REPAIR, WITH SUBSEQUENT STAPH INFECTION -VENTRAL HERNIA REPAIR WITH MESH -CARDIAC CATH 07/22/[address] WOOD: IMPRESSION: 1. Mild systemic hypertension. 2. Patent stents in the mid and distal segment of the left anterior descending coronary artery with a 50% stenosis in the proximal segment of the vessel. 3. The right coronary artery is dominant contained mild disease. 4. The patient is known to have normal left ventricular systolic function with an estimated ejection fraction of 60% by echocardiogram obtained on 12/21/2020 Physical Exam Vital Signs Vital Signs - First Documented 10/12/22 16:18 Temp 36.7 Pulse 66 Resp 16 B/P (MAP) 120/61 (80) Pulse Ox 95 Capillary Refill : Less Than 3 Seconds Height, Weight, BMI Height: 6'0.00" Weight: 190lbs. 0.0oz. 86.236969mp; 25.00 BMI Method:Stated Progress/Results/Core Measures Suspected Sepsis SIRS Temperature: Pulse: 66 Respiratory Rate: 16 Laboratory Tests 10/12/22 17:41: White Blood Count 10.0 Blood Pressure 120 /61 Mean: 80 Laboratory Tests 10/12/22 17:41: Creatinine 1.28, Platelet Count 243, Total Bilirubin 1.2H Results/Orders Lab Results Laboratory Tests Test 10/12/22 17:31 10/12/22 17:41 Range/Units Urine Color YELLOW Urine Clarity CLEAR Urine pH 5.5 5-9 Urine Specific Darwin >=1.030 1.016-1.022 Urine Protein 2+ H NEGATIVE Urine Glucose (UA) NEGATIVE NEGATIVE Urine Ketones 1+ H NEGATIVE Urine Nitrite NEGATIVE NEGATIVE Urine Bilirubin 1+ H NEGATIVE Urine Urobilinogen 1.0 < = 1.0 MG/DL Urine Leukocyte Esterase NEGATIVE NEGATIVE Urine RBC (Auto) NEGATIVE NEGATIVE Urine RBC 0-2 /HPF Urine WBC 5-10 H /HPF Urine Squamous Epithelial Cells 0-2 /HPF Urine Renal Epithelial Cells RARE /HPF Urine Crystals PRESENT H /LPF Urine Calcium Oxalate Crystals MODERATE H /LPF Urine Amorphous Sediment MOD STANTON URATES H /LPF Urine Bacteria MODERATE H /HPF Urine Casts PRESENT /LPF Urine Hyaline Casts 25-50 H /LPF Urine Granular Casts 0-2 H /LPF Urine Mucus LARGE H /LPF Urine Culture Indicated YES White Blood Count 10.0 4.3-11.0 10^3/uL Red Blood Count 3.43 L 4.30-5.52 10^6/uL Hemoglobin 10.7 L 13.3-17.7 g/dL Hematocrit 30 L 40-54 % Mean Corpuscular Volume 89 80-99 fL Mean Corpuscular Hemoglobin 31 25-34 pg Mean Corpuscular Hemoglobin Concent 35 32-36 g/dL Red Cell Distribution Width 13.7 10.0-14.5 % Platelet Count 243 130-400 10^3/uL Mean Platelet Volume 10.0 9.0-12.2 fL Immature Granulocyte % (Auto) 1 % Neutrophils (%) (Auto) 76 H 42-75 % Lymphocytes (%) (Auto) 15 12-44 % Monocytes (%) (Auto) 6 0-12 % Eosinophils (%) (Auto) 3 0-10 % Basophils (%) (Auto) 0 0-10 % Neutrophils # (Auto) 7.6 1.8-7.8 10^3/uL Lymphocytes # (Auto) 1.5 1.0-4.0 10^3/uL Monocytes # (Auto) 0.6 0.0-1.0 10^3/uL Eosinophils # (Auto) 0.3 0.0-0.3 10^3/uL Basophils # (Auto) 0.0 0.0-0.1 10^3/uL Immature Granulocyte # (Auto) 0.1 0.0-0.1 10^3/uL Sodium Level 137 135-145 MMOL/L Potassium Level 3.4 L 3.6-5.0 MMOL/L Chloride Level 104 98-107 MMOL/L Carbon Dioxide Level 18 L 21-32 MMOL/L Anion Gap 15 H 5-14 MMOL/L Blood Urea Nitrogen 17 7-18 MG/DL Creatinine 1.28 0.60-1.30 MG/DL Estimat Glomerular Filtration Rate 62 BUN/Creatinine Ratio 13 Glucose Level 91 70-105 MG/DL Calcium Level 9.0 8.5-10.1 MG/DL Corrected Calcium 9.2 8.5-10.1 MG/DL Magnesium Level 1.5 L 1.6-2.4 MG/DL Total Bilirubin 1.2 H 0.1-1.0 MG/DL Aspartate Amino Transf (AST/SGOT) 17 5-34 U/L Alanine Aminotransferase (ALT/SGPT) 14 0-55 U/L Alkaline Phosphatase 52 40-136 U/L Total Protein 6.5 6.4-8.2 GM/DL Albumin 3.7 3.2-4.5 GM/DL My Orders Orders - BHAKTI PANIAGUA MD Cbc With Automated Diff (10/12/22 17:01) Comprehensive Metabolic Panel (10/12/22 17:01) Magnesium (10/12/22 17:01) Ua Culture If Indicated (10/12/22 17:) Ed Iv/Invasive Line Start (10/12/22 17:) Ekg Tracing (10/12/22 17:01) Monitor-Rhythm Ecg Trace Only (10/12/22 17:) Urine Culture (10/12/22 17:31) Magnesium 1 Gm/100 Ml Ivpb (Magnesium Dowling (10/12/22 18:15) Magnesium 1 Gm/100 Ml Ivpb (Magnesium [place] (10/12/22 18:15) Potassium Chloride (Tablet) (Klor Con Ta (10/12/22 18:15) Orthostatic Vital Signs (Adult (10/12/22 18:11) Ns Iv 1000 Ml (Sodium Chloride 0.9%) (10/12/22 18:15) Ceftriaxone Iv/Im (Rocephin Iv/Im) (10/12/22 18:11) Medications Given in ED Current Medications Medications Dose Ordered Sig/Ankita Route Start Time Stop Time Status Last Admin Dose Admin Potassium Chloride 20 meq ONCE ONCE PO 10/12/22 18:15 10/12/22 18:17 DC 10/12/22 18:34 20 MEQ Vital Signs/I&O 10/12/22 16:18 Temp 36.7 Pulse 66 Resp 16 B/P (MAP) 120/61 (80) Pulse Ox 95 Capillary Refill : Less Than 3 Seconds Blood Pressure Mean: 80 ECG Initial ECG Impression Date: October 12, 2022 Initial ECG Impression Time: 17:13 Initial ECG Rate: 69 Initial ECG Rhythm: Normal Sinus Initial ECG Impression: Normal Comment Normal sinus rhythm with no ST elevation or depression. No abnormal intervals or axis deviation. Departure Impression Primary Impression: Hypomagnesemia Additional Impression: UTI (urinary tract infection) Qualified Codes: N39.0 - Urinary tract infection, site not specified Disposition: 01 HOME, SELF-CARE Condition: Improved Departure-Patient Inst. Decision time for Depature: 18:39 Referrals: AKLI DUNBAR MD (PCP) Primary Care Physician Patient Instructions: Low Magnesium Level, Urinary Tract Infection, Adult ED Add. Discharge Instructions: Drink plenty of clear liquids to stay well-hydrated and complete your antibiotic as prescribed. Please be aware that this antibiotic may cause your urine to turn an orange issue or reddish color. This is normal. Follow-up with Dr. Dunbar on Monday to review urine culture results. Please call his office. Also follow-up with Dr. Dunbar regarding your magnesium and potassium levels. Try to find foods you enjoy that are high in magnesium. If tolerated well, increase your magnesium 250 mg to twice daily dosing. Return to care if you have worsening symptoms despite following these instructions. All discharge instructions reviewed with patient and/or family. Voiced understanding. Scripts Nitrofurantoin Macrocrystal (Nitrofurantoin) 100 Mg Capsule 100 MG PO BID, #14 CAP 0 Refills Prov: BHAKTI PANIAGUA MD 10/12/22 Copy Copies To 1: KALI DUNBAR MD, JOSHUA T MD October 12, 2022 17:57
[2022-10-12 17:58] LABS: BILIRUBIN,TOTAL 1.2 MG/DL (0.1-1.0)
[2022-10-12 18:00] LABS: CREATININE SERUM 1.28 MG/DL (0.60-1.30)
[2022-10-12 18:03] LABS: MAGNESIUM 1.5 MG/DL (1.6-2.4)
[2022-10-12 18:05] LABS: AMORPHOUS SEDIMENT,UR MOD AMOR URATES /LPF; BACTERIA,URINE MODERATE /HPF; CALCIUM OXALATE CRYSTALS,UR MODERATE /LPF; HYALINE CASTS, URINE 25-50 /LPF; RBC,URINE 0-2 /HPF; SQUAMOUS EPITHELIAL CELL,UR 0-2 /HPF
[2022-10-12 18:07] LABS: RENAL EPITHELIAL CELLS,URINE RARE /HPF
[2022-10-12 18:08] LABS: GRANULAR CASTS,URINE 0-2 /LPF
[2022-10-12] MEDS ORDERED: cefTRIAXone IV/IM 1,000 MG in NS (IVPB) 50 ML IV STA (18:11)
[2022-10-12 18:15] LABS: BILIRUBIN,URINE 1+ (NEGATIVE)
[2022-10-12] MEDS ORDERED: KCL 10 MEQ TAB (MICRO K) PO ONE (18:15)
[2022-10-12] MEDS ORDERED: NS IV 1000 ML 1,000 ML IV SCH (18:15)
[2022-10-12] MEDS ORDERED: MAGNESIUM 1 GM/100 ML IVPB 100 ML IV ONE ×2 (18:15)
[2022-10-12] MEDS ORDERED: NITR100C PO (18:41)
[2022-10-12 21:10] VITALS: BP 116/68
== END 2022-10-12 21:10 | disposition home or self-care (01) ==
LOC: EDUNIT# 16:09 → ER 16:12
DX: E83.42 Hypomagnesemia (principal); N39.0 Urinary tract infection, site not specified; Z87.891 Personal history of nicotine dependence; Z88.1 Allergy status to other antibiotic agents
CPT/HCPCS: 36415; 80053; 81000; 83735; 85025; 87088; 93005

== ENCOUNTER 2023-01-15 09:32 | Emergency (ER) | payer MEDICARE, OTHER, MEDICAID ==
[~2023-01-15] VITALS: Ht 182 cm; Wt 86.0 kg
[~2023-01-15 09:32] MED LIST changes: +DILT180C71 PO; -DILT180C82 PO; -LOSA100T57 PO; +LOSA100T58 PO; +NITR100C PO
[2023-01-15 09:44] VITALS: BP 137/75
[2023-01-15 10:10] LABS: BASOPHILS % (AUTO) 0 % (0-10); EOSINOPHILS # (AUTO) 0.3 10^3/uL (0.0-0.3); EOSINOPHILS % (AUTO) 6 % (0-10); HEMATOCRIT 39 % (40-54); HEMOGLOBIN 13.8 g/dL (13.3-17.7); LYMPHOCYTES # (AUTO) 1.2 10^3/uL (1.0-4.0); LYMPHOCYTES % (AUTO) 21 % (12-44); MEAN CORPUSCULAR HEMOGLOBIN 31 pg (25-34); MEAN CORPUSCULAR HGB CONC 35 g/dL (32-36); MEAN CORPUSCULAR VOLUME 86 fL (80-99); MEAN PLATELET VOLUME 9.2 fL (9.0-12.2); MONOCYTES # (AUTO) 0.7 10^3/uL (0.0-1.0); MONOCYTES % (AUTO) 11 % (0-12); NEUTROPHILS # (AUTO) 3.5 10^3/uL (1.8-7.8); NEUTROPHILS % (AUTO) 61 % (42-75); PLATELET COUNT 231 10^3/uL (130-400); WHITE BLOOD COUNT 5.8 10^3/uL (4.3-11.0)
[2023-01-15] MEDS ORDERED: LACTATED RINGERS 1,000 ML IV SCH (10:15)
[2023-01-15 10:25] LABS: POTASSIUM 4.3 MMOL/L (3.6-5.0)
[2023-01-15 10:26] LABS: CALCIUM 9.3 MG/DL (8.5-10.1)
--- NOTE | 2023-01-15 10:27 | ED Lower Extremity ---
General Chief Complaint: Lower Extremity Stated Complaint: BILAT LE CRAMPS Nursing Triage Note: Pt has had on and off problems with leg cramping for years and has had to recieve fluids in the past. Pt has been working outside a lot recently and has now had leg cramps periodically for approx 2 weeks. Source: patient Exam Limitations: no limitations History of Present Illness Date Seen by Provider: Jan 15, 2023 Time Seen by Provider: 10:06 Initial Comments 67-year-old male presents to the emergency department today for cramping his bilateral lower extremities. Symptoms off and on since 2018 after he had a tick bite. He states he goes about 3 to 4 months without and then has to come in for IV fluids due to severe cramping in his lower extremities. He tried to increase his fluids including electrolyte solutions at home which have not really worked. No new medications. Symptoms are consistent with previous episodes. He does have a history of hypokalemia hyponatremia and hypomagnesemia. All other systems reviewed and negative except documented per HPI. Voice recognition software was used to help create this chart Allergies and Home Medications Allergies Coded Allergies: levofloxacin (Unverified Allergy, Mild, LEG/ BONE PAIN, 11/26/18) Sulfa (Sulfonamide Antibiotics) (Verified Allergy, Unknown, 11/26/18) dextromethorphan (Verified Allergy, Unknown, 11/26/18) meperidine (Unverified Adverse Reaction, Unknown, 11/26/18) Patient Home Medication List Home Medication List Reviewed: Yes ALPRAZolam (ALPRAZolam) 0.25 Mg Tablet, 0.25 MG PO BID PRN for ANXIETY, (Reporte d) Entered as Reported by: NAS TEJADA on 07/22/21 09 Albuterol Sulfate (Ventolin Hfa) 90 Mcg Hfa.aer.ad, 2 PUFF INH Q6H PRN for SHORTNESS OF BREATH, (Reported) Entered as Reported by: PHILIPP OROZCO on 09/30/22 1247 Aspirin (Aspirin EC) 81 Mg Tablet.dr, 81 MG PO DAILY, (Reported) Entered as Reported by: NAS TEJADA on 07/22/21 0919 Clonidine HCl (Clonidine HCl) 0.1 Mg Tablet, 0.1 MG PO BID PRN for BLOOD PRESSURE, (Reported) Entered as Reported by: PHILIPP OROZCO on 09/30/22 1247 Dicyclomine HCl (Dicyclomine HCl) 20 Mg Tablet, 20 MG PO Q6H Prescribed by: GABRIELA BLAIR on 10/10/222036 Diltiazem HCl (Diltiazem 24Hr ER) 180 Mg Cap.er.24h, 180 MG PO HS, (Reported) Entered as Reported by: NAS TEJADA on 07/22/21918 Doxycycline Hyclate (Doxycycline Hyclate) 100 Mg Capsule, 100 MG PO BID, (Repor edwin) Entered as Reported by: PHILIPP OROZCO on 09/30/22 124 Fluticasone/Vilanterol (Breo Ellipta 200-25 Mcg INH) 200 Mcg-25 Mcg/Dose Blst.w.dev, 1 EACH IH DAILY Prescribed by: KATHERINE FIELD on 10/01/221126 Lactobacillus Acidophilus (Acidophilus Lactobacillus) 1 Billion Unit/Gram Powder, 1 GM MC QID Prescribed by: GABRIELA BLAIR on 10/10/222036 Levalbuterol HCl (Levalbuterol HCl) 1.25 Mg/3 Ml Vial.neb, 1.25 MG INH RTQ6HR Prescribed by: KATHERINE FIELD on 10/01/221126 Loratadine (Loratadine) 10 Mg Tablet, 10 MG PO DAILY, (Reported) Entered as Reported by: PHILIPP OROZCO on 09/30/221246 Losartan Potassium (Losartan Potassium) 100 Mg Tablet, 100 MG PO DAILY, (Reported) Entered as Reported by: NAS TEJADA on 07/22/21918 Magnesium Citrate and Oxide (Magnesium) 250 Mg Capsule, 250 MG PO DAILY, (Reported) Entered as Reported by: PHILIPP OROZCO on 09/30/22 124 Nitrofurantoin Macrocrystal (Nitrofurantoin) 100 Mg Capsule, 100 MG PO BID Prescribed by: BHAKTI TEJEDA on 10/12/22 184 Omeprazole (Omeprazole) 40 Mg Capsule.dr, 40 MG PO DAILY, (Reported) Entered as Reported by: NAS TEJADA on 07/22/21918 Ondansetron (Ondansetron Odt) 4 Mg Tab.rapdis, 4 MG PO Q4H Prescribed by: GABRIELA BLAIR on 10/10/222036 Prednisone (Prednisone) 10 Mg Tab.ds.pk, 10 MG PO DAILY Prescribed by: KATHERINE FIELD on 10/01/22 112 Sildenafil Citrate (Viagra) 100 Mg Tablet, 100 MG PO UD PRN for ED, (Reported) Entered as Reported by: PHILIPP OROZCO on 09/30/22 1247 Tamsulosin HCl (Flomax) 0.4 Mg Cap, 0.4 MG PO DAILY, (Reported) Entered as Reported by: NAS TEJADA on 07/22/21 0919 Review of Systems Constitutional: see HPI Past Hzrhijn-Jijbyr-Ahymfc Hx Patient Social History Tobacco Use?: No Smoking Status: Former Smoker Use of E-Cig and/or Vaping dev: No Substance use?: No Alcohol Use?: Yes Alcohol type: Beer Alcohol Frequency: Daily Pt feels they are or have been: No Immunizations Up To Date Influenza Vaccine Up-to-Date: No; Not Current Seasonal Allergies Seasonal Allergies: No Past Medical History Surgery/Hospitalization HX: ABD HERNIA, APPY, MANSI, CARDIAC STENTS, LOWER BACK, CAD, PALPITATIONS, GERD, DIVERTICULOSIS. Surgeries: Yes (BACK, HERNIAS, FACE LACERATION, ) Abdominal, Appendectomy, Bowel Surgery, Cardiac, Coronary Stent, Gallbladder, Orthopedic Respiratory: No (COVID -19 [place] 04/2020--NO HOSPITALIZATION OR TREATMENT) Currently Using CPAP: No Currently Using BIPAP: No Cardiac: Yes (STENT X2) Coronary Artery Disease, High Cholesterol, Hypertension, Irregular Heartbeat, Palpitations Neurological: No Reproductive Disorders: No Sexually Transmitted Disease: No HIV/AIDS: No Genitourinary: No Gastrointestinal: Yes Gastroesophageal Reflux, Diverticulosis Musculoskeletal: Yes (BACK SURGERY; L1 COMPRESSION FX WITH KYPHOPLASTY 01/2015;SPINAL STENOSIS ) Chronic Back Pain Endocrine: Yes (Recurrent hypokalemia and hypomagnesemia) HEENT: Yes (READING GLASSES) Loss of Vision: Denies Hearing Impairment: Hard of Hearing Cancer: No Psychosocial: Yes Anxiety Integumentary: No Blood Disorders: Yes (tularemia) Adverse Reaction/Blood Tranf: No Family Medical History No Pertinent Family Hx SOCIAL HISTORY: -SMOKING--FORMER SMOKER, QUIT A FEW YEARS AGO -ETOH--DENIES USE -DRUGS--DENIES USE PAST SURGICAL HISTORY: -APPENDECTOMY -CHOLECYSTECTOMY WITH COMPLICATIONS INCLUDING BOWEL INJURY, REQUIRING BOWEL REPAIR, WITH SUBSEQUENT STAPH INFECTION -VENTRAL HERNIA REPAIR WITH MESH -CARDIAC CATH 07/22/[address] WOOD: IMPRESSION: 1. Mild systemic hypertension. 2. Patent stents in the mid and distal segment of the left anterior descending coronary artery with a 50% stenosis in the proximal segment of the vessel. 3. The right coronary artery is dominant contained mild disease. 4. The patient is known to have normal left ventricular systolic function with an estimated ejection fraction of 60% by echocardiogram obtained on 12/21/2020 Physical Exam Vital Signs Vital Signs - First Documented 01/15/23 09:44 Temp 36.4 Pulse 61 Resp 18 B/P (MAP) 137/75 (95) Capillary Refill : Less Than 3 Seconds Height, Weight, BMI Height: 6'0.00" Weight: 190lbs. 0.0oz. 86.924492cd; 25.00 BMI Method:Stated General Appearance: WD/WN, no apparent distress HEENT: normal ENT inspection, pharynx normal Neck: non-tender, supple Cardiovascular: regular rate, rhythm, no murmur Respiratory: chest non-tender, lungs clear, normal breath sounds, no respiratory distress, no accessory muscle use Gastrointestinal: normal bowel sounds, non tender, soft, no organomegaly Hips: bilateral hip non-tender, bilateral hip normal inspection, bilateral hip normal range of motion Legs: bilateral leg non-tender, bilateral leg normal inspection, bilateral leg normal range of motion Knees: bilateral knee non-tender, bilateral knee normal inspection, bilateral knee normal range of motion Ankles: bilateral ankle non-tender, bilateral ankle normal inspection, bilateral ankle normal range of motion Feet: bilateral foot non-tender, bilateral foot normal inspection, bilateral foot normal range of motion Neurologic/Tendon: normal sensation, normal motor functions, normal tendon functions Neurologic/Psychiatric: alert, normal mood/affect, oriented x 3 Skin: normal color, warm/dry Progress/Results/Core Measures Results/Orders Lab Results Laboratory Tests Test 01/15/23 10:05 Range/Units White Blood Count 5.8 4.3-11.0 10^3/uL Red Blood Count 4.52 4.30-5.52 10^6/uL Hemoglobin 13.8 13.3-17.7 g/dL Hematocrit 39 L 40-54 % Mean Corpuscular Volume 86 80-99 fL Mean Corpuscular Hemoglobin 31 25-34 pg Mean Corpuscular Hemoglobin Concent 35 32-36 g/dL Red Cell Distribution Width 12.6 10.0-14.5 % Platelet Count 231 130-400 10^3/uL Mean Platelet Volume 9.2 9.0-12.2 fL Immature Granulocyte % (Auto) 0 % Neutrophils (%) (Auto) 61 42-75 % Lymphocytes (%) (Auto) 21 12-44 % Monocytes (%) (Auto) 11 0-12 % Eosinophils (%) (Auto) 6 0-10 % Basophils (%) (Auto) 0 0-10 % Neutrophils # (Auto) 3.5 1.8-7.8 10^3/uL Lymphocytes # (Auto) 1.2 1.0-4.0 10^3/uL Monocytes # (Auto) 0.7 0.0-1.0 10^3/uL Eosinophils # (Auto) 0.3 0.0-0.3 10^3/uL Basophils # (Auto) 0.0 0.0-0.1 10^3/uL Immature Granulocyte # (Auto) 0.0 0.0-0.1 10^3/uL Sodium Level 131 L 135-145 MMOL/L Potassium Level 4.3 3.6-5.0 MMOL/L Chloride Level 97 L 98-107 MMOL/L Carbon Dioxide Level 23 21-32 MMOL/L Anion Gap 11 5-14 MMOL/L Blood Urea Nitrogen 9 7-18 MG/DL Creatinine 0.85 0.60-1.30 MG/DL Estimat Glomerular Filtration Rate 95 BUN/Creatinine Ratio 11 Glucose Level 94 70-105 MG/DL Calcium Level 9.3 8.5-10.1 MG/DL Magnesium Level 1.6 1.6-2.4 MG/DL My Orders Orders - WINTERKIARA DO Basic Metabolic Panel (01/15/23 09:58) Magnesium (01/15/23 09:58) Cbc With Automated Diff (01/15/23 09:58) Iv/Invasive Line Insertion .IV INSERT (01/15/23 09:58) Lactated Ringers (Lr 1000 Ml Iv Solution (01/15/23 10:15) Vital Signs/I&O 01/15/23 09:44 Temp 36.4 Pulse 61 Resp 18 B/P (MAP) 137/75 (95) Blood Pressure Mean: 95 Departure Communication (Admissions) Patient has longstanding history of similar symptoms. We will go ahead and marilee ck a chemistry to check potassium and sodium. We will add a mag onto this as well. Check a CBC to rule out anemia. I did advise he likely needs ultrasound to rule out claudication however he has good pulses sensation strength and capillary refill today. Have ordered 1 L of lactated Ringer's. 1052: Patient has mild hyponatremia, 131. Potassium magnesium calcium are normal. He is not anemic. He is feeling better after IV fluids. We discharged home in stable condition with close follow-up. Impression Primary Impression: Leg cramps Additional Impression: Hyponatremia Disposition: HOME, SELF-CARE Condition: Stable Departure-Patient Inst. Referrals: KALI DE LA GARZA MD (PCP/Family) Primary Care Physician Patient Instructions: Hyponatremia (DC), Muscle Spasm ED Add. Discharge Instructions: Continue to increase your fluids at home, rest. Your sodium is slightly low, increase salt in your diet for now and discuss this further with your primary doctor. Follow with your primary doctor for any nonemergent needs. Return to the emergency department for any severe concerns. All discharge instructions reviewed with patient and/or family. Voiced understanding. KIARA MAX DO Jan 15, 2023 10:27
[2023-01-15 10:30] LABS: CREATININE SERUM 0.85 MG/DL (0.60-1.30)
[2023-01-15 10:33] LABS: MAGNESIUM 1.6 MG/DL (1.6-2.4)
== END 2023-01-15 11:23 | disposition home or self-care (01) ==
LOC: EDUNIT# 09:32 → ER 09:33
DX: R25.2 Cramp and spasm (principal); E87.1 Hypo-osmolality and hyponatremia; Z87.891 Personal history of nicotine dependence; Z86.16 Personal history of COVID-19; Z28.310 Unvaccinated for COVID-19
CPT/HCPCS: 36415; 80048; 83735; 85025

== ENCOUNTER 2023-02-24 09:04 | Emergency (ER) | payer MEDICARE, OTHER, MEDICAID ==
[~2023-02-24] VITALS: Ht 182.8 cm; Wt 89.0 kg
[2023-02-24 09:30] VITALS: BP 178/94
[2023-02-24] MEDS ORDERED: LACTATED RINGERS 1,000 ML 1,000 ML IV STA (10:49)
--- NOTE | 2023-02-24 10:50 | ED General ---
General Chief Complaint: General Problems/Pain Stated Complaint: LEG CRAMPS Nursing Triage Note: pt come in with chronic leg cramps, doctor is aware, pt recieved sodium and magnesium transfusion 02/21 in [place], legs still cramping still at night after infusion. Missed ultra-sound of legs on 02/14, have not rescheduled yet. Ongoing for months prior to arriving to ER Source of Information: Patient, Family () History of Present Illness Date Seen by Provider: Feb 24, 2023 Time Seen by Provider: 10:38 Initial Comments Patient is a 67-year-old male who presents to the emergency room with a chief complaint of bilateral leg cramping from thighs down to his feet. He has a history of many years of cramps with no etiology. He mentions that he has had some low sodium in the past that he thought contributed to the cramping. His primary care doctor is Dr. Dunbar whom he states has really no idea what to do about his cramping. He has seen Dr. Ana Bhandari in the past for chronic kidney disease however reportedly now his kidney function is "normal". He denies any recent illnesses such as fevers, chills, nausea, vomiting, diarrhea. He is using iocn-ivr-ikorwrl muscle rubs as well as tablets for muscle cramps available [id number], Tylenol without any relief of symptoms. He states that most he may get 20 minutes of relief from those stated therapies. He was at [facility] on Monday of this week, 3 days ago and had "2 bags of saline and 1 bag of magnesium". He states this helped tremendously until the following Monday night when he started having pain again. He denies any par esthesia like pain. No burning. He states the "cramps" extend down to his toes. Not as bad currently as at night. Timing/Duration: Other (chronic) Associated Systoms: Denies Symptoms Allergies and Home Medications Allergies Coded Allergies: levofloxacin (Unverified Allergy, Mild, LEG/ BONE PAIN, 11/26/18) Sulfa (Sulfonamide Antibiotics) (Verified Allergy, Unknown, 11/26/18) dextromethorphan (Verified Allergy, Unknown, 11/26/18) meperidine (Unverified Adverse Reaction, Unknown, 11/26/18) Patient Home Medication List Home Medication List Reviewed: Yes ALPRAZolam (ALPRAZolam) 0.25 Mg Tablet, 0.25 MG PO BID PRN for ANXIETY, (Reported) Entered as Reported by: NAS TEJADA on 07/22/21925 Albuterol Sulfate (Ventolin Hfa) 90 Mcg Hfa.aer.ad, 2 PUFF INH Q6H PRN for SHORTNESS OF BREATH, (Reported) Entered as Reported by: PHILIPP OROZCO on 09/30/22 124 Aspirin (Aspirin EC) 81 Mg Tablet.dr, 81 MG PO DAILY, (Reported) Entered as Reported by: NAS TEJADA on 07/22/21918 Clonidine HCl (Clonidine HCl) 0.1 Mg Tablet, 0.1 MG PO BID PRN for BLOOD PRESSURE, (Reported) Entered as Reported by: PHILIPP OROZCO on 09/30/221246 Dicyclomine HCl (Dicyclomine HCl) 20 Mg Tablet, 20 MG PO Q6H Prescribed by: GABRIELA BLAIR on 10/10/222036 Diltiazem HCl (Diltiazem 24Hr ER) 180 Mg Cap.er.24h, 180 MG PO HS, (Reported) Entered as Reported by: NAS TEJADA on 07/22/21918 Doxycycline Hyclate (Doxycycline Hyclate) 100 Mg Capsule, 100 MG PO BID, (Reported) Entered as Reported by: PHILIPP OROZCO on 09/30/221246 Fluticasone/Vilanterol (Breo Ellipta 200-25 Mcg INH) 200 Mcg-25 Mcg/Dose Blst.w.dev, 1 EACH IH DAILY Prescribed by: KATHERINE FIELD on 10/01/221126 Lactobacillus Acidophilus (Acidophilus Lactobacillus) 1 Billion Unit/Gram Powder, 1 GM MC QID Prescribed by: GABRIELA BLAIR on 10/10/222036 Levalbuterol HCl (Levalbuterol HCl) 1.25 Mg/3 Ml Vial.neb, 1.25 MG INH RTQ6HR Prescribed by: KATHERINE FIELD on 10/01/221126 Loratadine (Loratadine) 10 Mg Tablet, 10 MG PO DAILY, (Reported) Entered as Reported by: PHILIPP OROZCO on 4/21/23 1247 Losartan Potassium (Losartan Potassium) 100 Mg Tablet, 100 MG PO DAILY, (Reported) Entered as Reported by: NAS TEJADA on 07/22/21918 Magnesium Citrate and Oxide (Magnesium) 250 Mg Capsule, 250 MG PO DAILY, (Reported) Entered as Reported by: PHILIPP OROZCO on 09/30/22 1247 Methocarbamol (Methocarbamol) 500 Mg Tablet, 500 MG PO Q8H Prescribed by: BIBI DE LUNA on 02/24/23 1258 Nitrofurantoin Macrocrystal (Nitrofurantoin) 100 Mg Capsule, 100 MG PO BID Prescribed by: BHAKTI TEJEDA on 10/12/22 184 Omeprazole (Omeprazole) 40 Mg Capsule.dr, 40 MG PO DAILY, (Reported) Entered as Reported by: NAS TEJADA on 07/22/21918 Ondansetron (Ondansetron Odt) 4 Mg Tab.rapdis, 4 MG PO Q4H Prescribed by: GABRIELA BLAIR on 10/10/222036 Prednisone (Prednisone) 10 Mg Tab.ds.pk, 10 MG PO DAILY Prescribed by: KATHERINE FIELD on 10/01/22 112 Sildenafil Citrate (Viagra) 100 Mg Tablet, 100 MG PO UD PRN for ED, (Reported) Entered as Reported by: PHILIPP OROZCO on 09/30/22 124 Tamsulosin HCl (Flomax) 0.4 Mg Cap, 0.4 MG PO DAILY, (Reported) Entered as Reported by: NAS TEJADA on 07/22/21918 Review of Systems Review of Systems Constitutional: see HPI Respiratory: no symptoms reported Cardiovascular: no symptoms reported Gastrointestinal: no symptoms reported Genitourinary: no symptoms reported Musculoskeletal: muscle cramps (legs bilaterally) Skin: no symptoms reported Psychiatric/Neurological: No Symptoms Reported Past Ezkbqwl-Zioxvs-Vjhqkh Hx Immunizations Up To Date Influenza Vaccine Up-to-Date: No; Not Current Seasonal Allergies Seasonal Allergies: No Past Medical History Surgery/Hospitalization HX: ABD HERNIA, APPY, MANSI, CARDIAC STENTS, LOWER BACK, CAD, PALPITATIONS, GERD, DIVERTICULOSIS. Surgeries: Yes (BACK, HERNIAS, FACE LACERATION, ) Abdominal, Appendectomy, Bowel Surgery, Cardiac, Coronary Stent, Gallbladder, Orthopedic Respiratory: No (COVID -19 [place] 04/2020--NO HOSPITALIZATION OR TREATMENT) Currently Using CPAP: No Currently Using BIPAP: No Cardiac: Yes (STENT X2) Coronary Artery Disease, High Cholesterol, Hypertension, Irregular Heartbeat, Palpitations Neurological: No Reproductive Disorders: No Sexually Transmitted Disease: No HIV/AIDS: No Genitourinary: No Gastrointestinal: Yes Gastroesophageal Reflux, Diverticulosis Musculoskeletal: Yes (BACK SURGERY; L1 COMPRESSION FX WITH KYPHOPLASTY 01/2015;SPINAL STENOSIS ) Chronic Back Pain Endocrine: Yes (Recurrent hypokalemia and hypomagnesemia) HEENT: Yes (READING GLASSES) Loss of Vision: Denies Hearing Impairment: Hard of Hearing Cancer: No Psychosocial: Yes Anxiety Integumentary: No Blood Disorders: Yes (tularemia) Adverse Reaction/Blood Tranf: No Family Medical History No Pertinent Family Hx SOCIAL HISTORY: -SMOKING--FORMER SMOKER, QUIT A FEW YEARS AGO -ETOH--DENIES USE -DRUGS--DENIES USE PAST SURGICAL HISTORY: -APPENDECTOMY -CHOLECYSTECTOMY WITH COMPLICATIONS INCLUDING BOWEL INJURY, REQUIRING BOWEL REPAIR, WITH SUBSEQUENT STAPH INFECTION -VENTRAL HERNIA REPAIR WITH MESH -CARDIAC CATH 07/22/[address] WOOD: IMPRESSION: 1. Mild systemic hypertension. 2. Patent stents in the mid and distal segment of the left anterior descending coronary artery with a 50% stenosis in the proximal segment of the vessel. 3. The right coronary artery is dominant contained mild disease. 4. The patient is known to have normal left ventricular systolic function with an estimated ejection fraction of 60% by echocardiogram obtained on 12/21/2020 Physical Exam Vital Signs Vital Signs - First Documented 02/24/23 09:30 Temp 36.6 Pulse 66 Resp 19 B/P (MAP) 178/94 (122) Pulse Ox 99 O2 Delivery Room Air O2 Flow Rate 0 Capillary Refill : Height, Weight, BMI Height: 6'0.00" Weight: 190lbs. 0.0oz. 86.277548tm; 26.00 BMI Method:Stated General Appearance: No Apparent Distress, WD/WN Eyes: Bilateral Eye Normal Inspection, Bilateral Eye PERRL, Bilateral Eye EOMI HEENT: PERRL/EOMI Neck: Normal Inspection Respiratory: Lungs Clear, Normal Breath Sounds, No Accessory Muscle Use, No Respiratory Distress Cardiovascular: Regular Rate, Rhythm Gastrointestinal: Non Tender, Soft Extremity: Normal Capillary Refill, Normal Inspection, Normal Range of Motion, Non Tender, No Calf Tenderness, No Pedal Edema Neurologic/Psychiatric: Alert, Oriented x3, No Motor/Sensory Deficits, 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, bench technician II-XII Norm as Tested Skin: Normal Color, Warm/Dry Progress/Results/Core Measures Suspected Sepsis SIRS Temperature: Pulse: 66 Respiratory Rate: 19 Blood Pressure 178 /94 Mean: 122 Laboratory Tests 02/24/23 11:03: Creatinine 0.76, Total Bilirubin 1.4H Results/Orders Lab Results Laboratory Tests Test 02/24/23 11:03 02/24/23 11:09 Range/Units Sodium Level 134 L 135-145 MMOL/L Potassium Level 4.1 3.6-5.0 MMOL/L Chloride Level 101 98-107 MMOL/L Carbon Dioxide Level 20 L 21-32 MMOL/L Anion Gap 13 5-14 MMOL/L Blood Urea Nitrogen 19 H 7-18 MG/DL Creatinine 0.76 0.60-1.30 MG/DL Estimat Glomerular Filtration Rate 99 BUN/Creatinine Ratio 25 Glucose Level 95 70-105 MG/DL Calcium Level 9.8 8.5-10.1 MG/DL Corrected Calcium 8.5-10.1 MG/DL Total Bilirubin 1.4 H 0.1-1.0 MG/DL Aspartate Amino Transf (AST/SGOT) 19 5-34 U/L Alanine Aminotransferase (ALT/SGPT) 19 0-55 U/L Alkaline Phosphatase 71 40-136 U/L Total Protein 7.5 6.4-8.2 GM/DL Albumin 4.6 H 3.2-4.5 GM/DL Magnesium Level 1.6 1.6-2.4 MG/DL My Orders Orders - BIBI DE LUNA MD Ed Iv/Invasive Line Start (02/24/23 10:49) Comprehensive Metabolic Panel (02/24/23 10:49) Lactated Ringers 1,000 Ml (Lactated Ring (02/24/23 10:49) Magnesium (02/24/23 11:58) Vital Signs/I&O 02/24/23 09:30 Temp 36.6 Pulse 66 Resp 19 B/P (MAP) 178/94 (122) Pulse Ox 99 O2 Delivery Room Air O2 Flow Rate 0 Capillary Refill : Blood Pressure Mean: 122 Progress Note : Time: 13:00 Progress Note Patient seen and evaluated by me. 67yo male with a long history of muscle "cramps" to his bilateral LE. Evaluation today includes physical exam and BMP with magnesium level. Physical exam pertinent for WDWN male in NAD. Appears healthy. VSS. Heart is regular, Lungs are clear. Abdomen is soft and benign. He has intact strength and sensation to his LE bilaterally. Ddx based on H&P includes metabolic derangement, radiculopathy, anxiety about health, neuropathy. Patient treated in the ED with 1L of LR IV. His labs are independently reviewed and interpreted by me. Electrolytes all WNL. I had a long discussion with patient regarding plan of care and his labs. He has had prior spine surgery and previous MRI here at this facility in 2016 that showed some spinal canal stenosis at the lumbar levels. As it turns out he had an MRI [place] 2 weeks ago with follow up scheduled at [facility] next . I was able to look at the read from his MRI on his 's phone throught the [facility] portal.It is conceivable that some fairly significant canal narrowing (to 6mm) and foraminal narrowing are contributing to his "cramps". We discussed possible starting gabapentin vs some mild muscle relaxants. In the end he decided to try some met hocarbamol . He is very apprehensive about new medications as he states he is very "sensitive" to meds and is concerned about the impact on his renal function. I do not think that his electrolytes are contributing to his symptoms, as the "cramps" are only localized to his LE and if that were to be the case he should be having "global" muscle cramping. He decided to try them and will follow up with pain management at [facility]. I am optimistic that further eval and management of spinal issues may help to address his "cramps". Both patient and are comfortable with the plan of care. All questions are sought and answered. Departure Impression Primary Impression: Muscle cramping Disposition: 01 HOME, SELF-CARE Condition: Stable Departure-Patient Inst. Decision time for Depature: 12:57 Referrals: KALI DUNBAR MD (PCP/Family) Primary Care Physician Patient Instructions: Muscle Spasms (DC) Add. Discharge Instructions: Try the methocarbamol 500mg at night for your muscle spasms. It should help with cramping. I believe you may get some answers when you follow up next week with [facility] regarding your MRI - it is possible your back is contributing to the spasms. If you have any other emergent, concerning symptoms please return to the Emergency Department for re-evaluation. Scripts Methocarbamol (Methocarbamol) 500 Mg Tablet 500 MG PO Q8H for muscle spasms, #10 TAB Prov: BIBI DE LUNA MD 02/24/23 Copy Copies To 1: KALI DNUBAR MD, KATHRYN M MD Feb 24, 2023 10:50
[2023-02-24 11:31] LABS: ALBUMIN 4.6 GM/DL (3.2-4.5); CHLORIDE 101 MMOL/L (98-107); POTASSIUM 4.1 MMOL/L (3.6-5.0)
[2023-02-24 11:32] LABS: SODIUM 134 MMOL/L (135-145)
[2023-02-24 11:33] LABS: CALCIUM 9.8 MG/DL (8.5-10.1)
[2023-02-24 11:34] LABS: GLUCOSE 95 MG/DL (70-105); TOTAL PROTEIN 7.5 GM/DL (6.4-8.2)
[2023-02-24 11:35] LABS: CARBON DIOXIDE 20 MMOL/L (21-32)
[2023-02-24 11:36] LABS: BILIRUBIN,TOTAL 1.4 MG/DL (0.1-1.0)
[2023-02-24 11:37] LABS: ALKALINE PHOSPHATASE 71 U/L (40-136)
[2023-02-24 11:38] LABS: CREATININE SERUM 0.76 MG/DL (0.60-1.30); GFR ESTIMATED 99
[2023-02-24 11:39] LABS: BUN/CREATININE RATIO 25
[2023-02-24 11:40] LABS: ALANINE AMINOTRANSFERASE 19 U/L (0-55)
[2023-02-24] MEDS ORDERED: METH-731 PO (12:58)
== END 2023-02-24 13:05 | disposition home or self-care (01) ==
LOC: EDUNIT# 09:04 → ER 09:05
DX: R25.2 Cramp and spasm (principal); Z87.891 Personal history of nicotine dependence
CPT/HCPCS: 36415; 80053; 83735

== ENCOUNTER 2023-03-23 08:56 | Emergency (ER) | payer MEDICARE, OTHER ==
[~2023-03-23] VITALS: Ht 182.8 cm; Wt 86.3 kg
[~2023-03-23 08:56] MED LIST changes: -MECL-149 PO; +MECL-291 PO; +METH-731 PO
[2023-03-23 09:31] LABS: BASOPHILS % (AUTO) 0 % (0-10); EOSINOPHILS # (AUTO) 0.1 10^3/uL (0.0-0.3); EOSINOPHILS % (AUTO) 1 % (0-10); HEMATOCRIT 37 % (40-54); LYMPHOCYTES # (AUTO) 1.7 10^3/uL (1.0-4.0); LYMPHOCYTES % (AUTO) 19 % (12-44); MEAN CORPUSCULAR HEMOGLOBIN 32 pg (25-34); MEAN CORPUSCULAR HGB CONC 35 g/dL (32-36); MEAN CORPUSCULAR VOLUME 92 fL (80-99); MEAN PLATELET VOLUME 10.2 fL (9.0-12.2); MONOCYTES # (AUTO) 0.9 10^3/uL (0.0-1.0); MONOCYTES % (AUTO) 10 % (0-12); NEUTROPHILS # (AUTO) 6.2 10^3/uL (1.8-7.8); NEUTROPHILS % (AUTO) 69 % (42-75); PLATELET COUNT 270 10^3/uL (130-400)
[2023-03-23 09:37] LABS: ALBUMIN 4.4 GM/DL (3.2-4.5); POTASSIUM 3.8 MMOL/L (3.6-5.0)
[2023-03-23 09:38] LABS: CALCIUM 9.5 MG/DL (8.5-10.1)
[2023-03-23 09:40] LABS: TOTAL PROTEIN 7.2 GM/DL (6.4-8.2)
[2023-03-23 09:41] LABS: BILIRUBIN,TOTAL 1.2 MG/DL (0.1-1.0)
[2023-03-23 09:43] LABS: CREATININE SERUM 0.86 MG/DL (0.60-1.30)
[2023-03-23 09:46] LABS: MAGNESIUM 1.7 MG/DL (1.6-2.4)
[2023-03-23] MEDS: NS IV 1000 ML 1,000 ML IV ONE (09:52)
--- NOTE | 2023-03-23 10:13 | ED General ---
General Chief Complaint: General Problems/Pain Stated Complaint: HANDS AND LEGS CRAMPING Nursing Triage Note: PT TO ED WITH C/O HANDS AND LEGS CRAMPING. STATES HE HAS HAD THIS PROBLEM FOR OVER A YEAR, HAS BEEN SEEN MULTIPLE TIMES WITH NO ANSWERS TO WHY Source of Information: Patient Exam Limitations: No Limitations History of Present Illness Date Seen by Provider: Mar 23, 2023 Time Seen by Provider: 09:21 Initial Comments Here with report of cramping to his hands and legs. This occurs after activity or during activity. 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 Does have cardiovascular disease and previous stents and he is on medications for that. He is not on a statin. He has had this problem intermittently over the last year. He is following with nephrology and cardiology as well as his primary care, Dr. Dunbar. He will get the cramping and usually gets some IV fluid and everything goes away. He has talked with his size painter about that she would prefer that he did not take excess fluids but it always seems to help. She is fluid restricting him to keep his sodium and normal level but then he has these problems. He is here because of the cramping pain. He states it was quite severe yesterday evening and this morning but it is gotten better now. Denies fevers, chills, chest pain, breathing problems, nausea or vomiting. Cramping occurs mostly in the hands and legs including upper legs. Timing/Duration: 12-24 Hours Severity: Moderate Associated Systoms: No Chest Pain, No Cough, No Fever/Chills, No Nausea/Vomiting; Shortness of Air; No Weakness Allergies and Home Medications Allergies Coded Allergies: levofloxacin (Unverified Allergy, Mild, LEG/ BONE PAIN, 11/26/18) Sulfa (Sulfonamide Antibiotics) (Verified Allergy, Unknown, 11/26/18) dextromethorphan (Verified Allergy, Unknown, 11/26/18) meperidine (Unverified Adverse Reaction, Unknown, 11/26/18) Patient Home Medication List Home Medication List Reviewed: Yes ALPRAZolam (ALPRAZolam) 0.25 Mg Tablet, 0.25 MG PO BID PRN for ANXIETY, (Re ported) Entered as Reported by: NAS TEJADA on 07/22/21 09 Albuterol Sulfate (Ventolin Hfa) 90 Mcg Hfa.aer.ad, 2 PUFF INH Q6H PRN for SHORTNESS OF BREATH, (Reported) Entered as Reported by: PHILIPP OROZCO on 09/30/221246 Aspirin (Aspirin EC) 81 Mg Tablet.dr, 81 MG PO DAILY, (Reported) Entered as Reported by: NAS TEJADA on 07/22/21918 Clonidine HCl (Clonidine HCl) 0.1 Mg Tablet, 0.1 MG PO BID PRN for BLOOD PRESSURE, (Reported) Entered as Reported by: PHILIPP OROZCO on 09/30/221246 Dicyclomine HCl (Dicyclomine HCl) 20 Mg Tablet, 20 MG PO Q6H Prescribed by: GABRIELA BLAIR on 10/10/222036 Diltiazem HCl (Diltiazem 24Hr ER) 180 Mg Cap.er.24h, 180 MG PO HS, (Reported) Entered as Reported by: NAS TEJADA on 07/22/21918 Doxycycline Hyclate (Doxycycline Hyclate) 100 Mg Capsule, 100 MG PO BID, ( Reported) Entered as Reported by: PHILIPP OROZCO on 09/30/221246 Fluticasone/Vilanterol (Breo Ellipta 200-25 Mcg INH) 200 Mcg-25 Mcg/Dose Blst.w.dev, 1 EACH IH DAILY Prescribed by: KATHERINE FIELD on 10/01/221126 Lactobacillus Acidophilus (Acidophilus Lactobacillus) 1 Billion Unit/Gram Powder, 1 GM MC QID Prescribed by: GABRIELA BLAIR on 10/10/222036 Levalbuterol HCl (Levalbuterol HCl) 1.25 Mg/3 Ml Vial.neb, 1.25 MG INH RTQ6HR Prescribed by: KATHERINE FIELD on 10/01/221126 Loratadine (Loratadine) 10 Mg Tablet, 10 MG PO DAILY, (Reported) Entered as Reported by: PHILIPP OROZCO on 09/30/221246 Losartan Potassium (Losartan Potassium) 100 Mg Tablet, 100 MG PO DAILY, (Reported) Entered as Reported by: NAS TEJADA on 07/22/21918 Magnesium Citrate and Oxide (Magnesium) 250 Mg Capsule, 250 MG PO DAILY, (Reported) Entered as Reported by: PHILIPP OROZCO on 4/21/23 1247 Methocarbamol (Methocarbamol) 500 Mg Tablet, 500 MG PO Q8H Prescribed by: BIBI DE LUNA on 02/24/23 1258 Nitrofurantoin Macrocrystal (Nitrofurantoin) 100 Mg Capsule, 100 MG PO BID Prescribed by: BHAKTI TEJEDA on 10/12/22 184 Omeprazole (Omeprazole) 40 Mg Capsule.dr, 40 MG PO DAILY, (Reported) Entered as Reported by: NAS TEJADA on 07/22/21918 Ondansetron (Ondansetron Odt) 4 Mg Tab.rapdis, 4 MG PO Q4H Prescribed by: GABRIELA BLAIR on 10/10/222036 Prednisone (Prednisone) 10 Mg Tab.ds.pk, 10 MG PO DAILY Prescribed by: KATHERINE FIELD on 10/01/22 112 Sildenafil Citrate (Viagra) 100 Mg Tablet, 100 MG PO UD PRN for ED, (Reported) Entered as Reported by: PHILIPP OROZCO on 09/30/22 124 Tamsulosin HCl (Flomax) 0.4 Mg Cap, 0.4 MG PO DAILY, (Reported) Entered as Reported by: NAS TEJADA on 07/22/21918 Review of Systems Review of Systems Constitutional: see HPI; No chills, No fever EENTM: no symptoms reported Respiratory: no symptoms reported Cardiovascular: see HPI Gastrointestinal: No nausea, No vomiting Musculoskeletal: see HPI, muscle pain, muscle stiffness, muscle cramps Skin: No change in color, No lesions Psychiatric/Neurological: Denies Numbness, Denies Paresthesia Past Qvbculn-Mwwesr-Qaztne Hx Patient Social History Tobacco Use?: No Substance use?: No Alcohol Use?: Yes Alcohol type: Beer Alcohol Frequency: Couple times a week Seasonal Allergies Seasonal Allergies: No Past Medical History Surgery/Hospitalization HX: ABD HERNIA, APPY, MANSI, CARDIAC STENTS, LOWER BACK, CAD, PALPITATIONS, GERD, HTN, DIVERTICULOSIS. Surgeries: Yes (BACK, HERNIAS, FACE LACERATION, ) Abdominal, Appendectomy, Bowel Surgery, Cardiac, Coronary Stent, Gallbladder, Orthopedic Respiratory: No (COVID -19 [place] 04/2020--NO HOSPITALIZATION OR TREATMENT) Currently Using CPAP: No Currently Using BIPAP: No Cardiac: Yes (STENT X2) Coronary Artery Disease, High Cholesterol, Hypertension, Irregular Heartbeat, Palpitations Neurological: No Reproductive Disorders: No Sexually Transmitted Disease: No HIV/AIDS: No Genitourinary: No Gastrointestinal: Yes Gastroesophageal Reflux, Diverticulosis Musculoskeletal: Yes (BACK SURGERY; L1 COMPRESSION FX WITH KYPHOPLASTY 01/2015;SPINAL STENOSIS ) Chronic Back Pain Endocrine: Yes (Recurrent hypokalemia and hypomagnesemia) HEENT: Yes (READING GLASSES) Loss of Vision: Denies Hearing Impairment: Hard of Hearing Cancer: No Psychosocial: Yes Anxiety Integumentary: No Blood Disorders: Yes (tularemia) Adverse Reaction/Blood Tranf: No Family Medical History No Pertinent Family Hx SOCIAL HISTORY: -SMOKING--FORMER SMOKER, QUIT A FEW YEARS AGO -ETOH--DENIES USE -DRUGS--DENIES USE PAST SURGICAL HISTORY: -APPENDECTOMY -CHOLECYSTECTOMY WITH COMPLICATIONS INCLUDING BOWEL INJURY, REQUIRING BOWEL REPAIR, WITH SUBSEQUENT STAPH INFECTION -VENTRAL HERNIA REPAIR WITH MESH -CARDIAC CATH 07/22/[address] WOOD: IMPRESSION: 1. Mild systemic hypertension. 2. Patent stents in the mid and distal segment of the left anterior descending coronary artery with a 50% stenosis in the proximal segment of the vessel. 3. The right coronary artery is dominant contained mild disease. 4. The patient is known to have normal left ventricular systolic function with an estimated ejection fraction of 60% by echocardiogram obtained on 12/21/2020 Physical Exam Vital Signs Vital Signs - First Documented 03/23/23 09:06 Temp 36.0 Pulse 60 Resp 16 B/P (MAP) 156/77 (103) Pulse Ox 99 Capillary Refill : Height, Weight, BMI Height: 6'0.00" Weight: 190lbs. 0.0oz. 86.790428sp; 25.00 BMI Method:Stated General Appearance: No Apparent Distress, WD/WN HEENT: PERRL/EOMI, Pharynx Normal Neck: Non Tender, Supple Respiratory: Lungs Clear, Normal Breath Sounds Cardiovascular: Regular Rate, Rhythm, No Gallop, No Murmur, Normal Peripheral Pulses Gastrointestinal: Non Tender, Soft Neurologic/Psychiatric: Alert, Oriented x3 Skin: Normal Color, Warm/Dry Progress/Results/Core Measures Suspected Sepsis SIRS Temperature: Pulse: 60 Respiratory Rate: 16 Laboratory Tests 03/23/23 09:19: White Blood Count 9.0 Blood Pressure 156 /77 Mean: 103 Laboratory Tests 03/23/23 09:19: Creatinine 0.86, Platelet Count 270, Total Bilirubin 1.2H Results/Orders Lab Results Laboratory Tests Test 03/23/23 09:19 Range/Units White Blood Count 9.0 4.3-11.0 10^3/uL Red Blood Count 4.05 L 4.30-5.52 10^6/uL Hemoglobin 13.0 L 13.3-17.7 g/dL Hematocrit 37 L 40-54 % Mean Corpuscular Volume 92 80-99 fL Mean Corpuscular Hemoglobin 32 25-34 pg Mean Corpuscular Hemoglobin Concent 35 32-36 g/dL Red Cell Distribution Width 14.2 10.0-14.5 % Platelet Count 270 130-400 10^3/uL Mean Platelet Volume 10.2 9.0-12.2 fL Immature Granulocyte % (Auto) 1 % Neutrophils (%) (Auto) 69 42-75 % Lymphocytes (%) (Auto) 19 12-44 % Monocytes (%) (Auto) 10 0-12 % Eosinophils (%) (Auto) 1 0-10 % Basophils (%) (Auto) 0 0-10 % Neutrophils # (Auto) 6.2 1.8-7.8 10^3/uL Lymphocytes # (Auto) 1.7 1.0-4.0 10^3/uL Monocytes # (Auto) 0.9 0.0-1.0 10^3/uL Eosinophils # (Auto) 0.1 0.0-0.3 10^3/uL Basophils # (Auto) 0.0 0.0-0.1 10^3/uL Immature Granulocyte # (Auto) 0.1 0.0-0.1 10^3/uL Sodium Level 133 L 135-145 MMOL/L Potassium Level 3.8 3.6-5.0 MMOL/L Chloride Level 103 98-107 MMOL/L Carbon Dioxide Level 20 L 21-32 MMOL/L Anion Gap 10 5-14 MMOL/L Blood Urea Nitrogen 21 H 7-18 MG/DL Creatinine 0.86 0.60-1.30 MG/DL Estimat Glomerular Filtration Rate 95 BUN/Creatinine Ratio 24 Glucose Level 118 H 70-105 MG/DL Calcium Level 9.5 8.5-10.1 MG/DL Corrected Calcium 9.2 8.5-10.1 MG/DL Magnesium Level 1.7 1.6-2.4 MG/DL Total Bilirubin 1.2 H 0.1-1.0 MG/DL Aspartate Amino Transf (AST/SGOT) 17 5-34 U/L Alanine Aminotransferase (ALT/SGPT) 21 0-55 U/L Alkaline Phosphatase 85 40-136 U/L Total Protein 7.2 6.4-8.2 GM/DL Albumin 4.4 3.2-4.5 GM/DL My Orders Orders - NING RIOS MD Ed Iv/Invasive Line Start (03/23/23 09:20) Cbc And Automated Diff (03/23/23 09:20) Comprehensive Metabolic Panel (03/23/23 09:20) Magnesium (03/23/23 09:20) Ns Iv 1000 Ml (Ns Iv 1000 Ml) (03/23/23 10:00) Medications Given in ED Current Medications Medications Dose Ordered Sig/Ankita Route Start Time Stop Time Status Last Admin Dose Admin Sodium Chloride 1,000 ml @ 0 mls/hr Q0M ONCE IV 03/23/23 10:00 03/23/23 10:01 DC 03/23/23 09:52 999 MLS/HR Vital Signs/I&O 03/23/23 03/23/23 09:06 11:54 Temp 36.0 36.0 Pulse 60 62 Resp 16 16 B/P (MAP) 156/77 (103) 150/72 Pulse Ox 99 99 Capillary Refill : Blood Pressure Mean: 103 Progress Note : Progress Note Seen and evaluated. IV, labs including CBC, CMP and magnesium ordered. Normal saline 1 L bolus ordered. Monitor patient. Differential diagnosis includes electrolyte abnormality, dehydration, fatigue/cramping secondary to underlying cardiovascular disease 4 0: Labs reviewed and CBC grossly normal although hemoglobin slightly low. CMP with slightly low sodium but otherwise grossly normal with grossly normal LFTs. Magnesium is normal. Overall he is much better after IV fluids. I did discuss with him about following up with his doctor to research other causes, which may include parathyroid disease, thyroid dysfunction, vitamin deficiency and immunological diseases. He will follow-up with his doctor and keep appointment with his digital press operator and size painter as scheduled. Discharged home with return precautions. Patient verbalized understanding of instructions and agreement with plan. Departure Impression Primary Impression: Cramps, extremity Disposition: HOME, SELF-CARE Condition: Improved Departure-Patient Inst. Decision time for Depature: 11:40 Referrals: KALI DUNBAR MD (PCP/Family) Primary Care Physician Patient Instructions: Muscle Spasms (DC) Add. Discharge Instructions: All discharge instructions reviewed with patient and/or family. Voiced understanding. Magnesium and calcium were normal Monday. Your sodium was slightly low and you did improve with fluids. I do recommend that you follow-up with your doctor for recheck and further evaluation and consideration of evaluation of thyroid studies, parathyroid studies vitamin studies such as vitamin D B vitamins. This may have already been done with your primary care doctor. Other considerations would be immunological disorders and vascular disease. You can discuss all of this with your doctor as well. Keep appointment with your digital press operator and size painter as scheduled. Maintain an adequate intake of fluids. Return for worse pain, fever, vomiting, weakness, breathing problems or other concerns as needed. Copy Copies To 1: KALI DUNBAR MD, TIMOTHY D MD Mar 23, 2023 10:13
[2023-03-23 11:54] VITALS: BP 150/72
== END 2023-03-23 11:53 | disposition home or self-care (01) ==
LOC: EDUNIT# 08:56 → ER 08:58
DX: M79.642 Pain in left hand (principal); M79.641 Pain in right hand; M79.605 Pain in left leg; M79.604 Pain in right leg; Z87.891 Personal history of nicotine dependence; Z86.16 Personal history of COVID-19
CPT/HCPCS: 36415; 80053; 83735; 85025

== ENCOUNTER 2023-04-01 15:58 | Emergency (ER) | payer MEDICARE, OTHER ==
[~2023-04-01] VITALS: Ht 182 cm; Wt 87.0 kg
[2023-04-01 16:38] LABS: BASOPHILS % (AUTO) 0 % (0-10); EOSINOPHILS # (AUTO) 0.3 10^3/uL (0.0-0.3); EOSINOPHILS % (AUTO) 3 % (0-10); HEMATOCRIT 34 % (40-54); LYMPHOCYTES # (AUTO) 1.4 10^3/uL (1.0-4.0); LYMPHOCYTES % (AUTO) 18 % (12-44); MEAN CORPUSCULAR HEMOGLOBIN 32 pg (25-34); MEAN CORPUSCULAR HGB CONC 36 g/dL (32-36); MEAN CORPUSCULAR VOLUME 91 fL (80-99); MEAN PLATELET VOLUME 9.8 fL (9.0-12.2); MONOCYTES # (AUTO) 0.8 10^3/uL (0.0-1.0); MONOCYTES % (AUTO) 10 % (0-12); NEUTROPHILS # (AUTO) 5.5 10^3/uL (1.8-7.8); NEUTROPHILS % (AUTO) 68 % (42-75); PLATELET COUNT 250 10^3/uL (130-400)
--- NOTE | 2023-04-01 16:46 | ED General ---
General Chief Complaint: General Problems/Pain Stated Complaint: LEG AND HAND CRAMPS/WEAKNESS Nursing Triage Note: PT TO ED W/ C/O BILAT LEG CRAMPS X1 WK, LEG WEAKNESS ET SOA W/ RAPID HEART RATE W/ EXERTION. REPORTS WAS SEEN IN THIS FACILITY FOR SAME C/O LAST WEEK, WAS GIVEN A LITER OF FLUIDS ET SENT HOME. NO OTHER C/O VOICED Source of Information: Patient Exam Limitations: No Limitations (RHONA ALFREDO) History of Present Illness Date Seen by Provider: Apr 01, 2023 Time Seen by Provider: 16:40 Initial Comments Patient presents today with bilaterally leg cramping for the past week, along with associated dyspnea upon exertion and tachycardia. He describes the pain in his leg goes from his hips to his toes at this time. He says that the shortness of air and tachycardia have been effected him while trying to do light work like painting a house. He described the leg pain as crampy. He is also having associated leg weakness. He states that he has an appointment with a renal specialist on April and they have limited him to 90 g of protein per da y and 60 oz of water. He rates the pain as a 0/10 currently but says at its worst is a 10/10. He denies any cough, fever, nausea, vomiting, syncope. Timing/Duration: 1 Week Severity: Mild Modifying Factors: improves with Movement (worsens) Associated Systoms: Shortness of Air, Weakness (RHONA ALFREDO) Allergies and Home Medications Allergies Coded Allergies: levofloxacin (Unverified Allergy, Mild, LEG/ BONE PAIN, 11/26/18) Sulfa (Sulfonamide Antibiotics) (Verified Allergy, Unknown, 11/26/18) dextromethorphan (Verified Allergy, Unknown, 11/26/18) meperidine (Unverified Adverse Reaction, Unknown, 11/26/18) Patient Home Medication List Home Medication List Reviewed: Yes (RHONA ALFREDO) ALPRAZolam (ALPRAZolam) 0.25 Mg Tablet, 0.25 MG PO BID PRN for ANXIETY, (Reported) Entered as Reported by: NAS TEJADA on 07/22/21 0926 Albuterol Sulfate (Ventolin Hfa) 90 Mcg Hfa.aer.ad, 2 PUFF INH Q6H PRN for SHORTNESS OF BREATH, (Reported) Entered as Reported by: PHILIPP OROZCO on 09/30/221246 Aspirin (Aspirin EC) 81 Mg Tablet.dr, 81 MG PO DAILY, (Reported) Entered as Reported by: NAS TEJADA on 07/22/21918 Clonidine HCl (Clonidine HCl) 0.1 Mg Tablet, 0.1 MG PO BID PRN for BLOOD PRE SSURE, (Reported) Entered as Reported by: PHILIPP OROZCO on 09/30/221246 Cyclobenzaprine HCl (Cyclobenzaprine HCl) 10 Mg Tablet, 10 MG PO HS Prescribed by: BHAKTI TEJEDA on 04/01/231904 Dicyclomine HCl (Dicyclomine HCl) 20 Mg Tablet, 20 MG PO Q6H Prescribed by: GABRIELA BLAIR on 10/10/222036 Diltiazem HCl (Diltiazem 24Hr ER) 180 Mg Cap.er.24h, 180 MG PO HS, (Reported) Entered as Reported by: NAS TEJADA on 07/22/21918 Doxycycline Hyclate (Doxycycline Hyclate) 100 Mg Capsule, 100 MG PO BID, (Reported) Entered as Reported by: PHILIPP OROZCO on 09/30/221246 Fluticasone/Vilanterol (Breo Ellipta 200-25 Mcg INH) 200 Mcg-25 Mcg/Dose Blst.w.dev, 1 EACH IH DAILY Prescribed by: KATHERINE FIELD on 10/01/221126 Lactobacillus Acidophilus (Acidophilus Lactobacillus) 1 Billion Unit/Gram Powder, 1 GM MC QID Prescribed by: GABRIELA BLAIR on 10/10/222036 Levalbuterol HCl (Levalbuterol HCl) 1.25 Mg/3 Ml Vial.neb, 1.25 MG INH RTQ6HR Prescribed by: KATHERINE FIELD on 10/01/221126 Loratadine (Loratadine) 10 Mg Tablet, 10 MG PO DAILY, (Reported) Entered as Reported by: PHILIPP OROZCO on 09/30/221246 Losartan Potassium (Losartan Potassium) 100 Mg Tablet, 100 MG PO DAILY, (Reported) Entered as Reported by: NAS TEJADA on 07/22/21918 Magnesium Citrate and Oxide (Magnesium) 250 Mg Capsule, 250 MG PO DAILY, (Reported) Entered as Reported by: PHILIPP OROZCO on 09/30/22 1247 Methocarbamol (Methocarbamol) 500 Mg Tablet, 500 MG PO Q8H Prescribed by: BIBI DE LUNA on 02/24/23 1258 Nitrofurantoin Macrocrystal (Nitrofurantoin) 100 Mg Capsule, 100 MG PO BID Prescribed by: BHAKTI TEJEDA on 10/12/22 184 Omeprazole (Omeprazole) 40 Mg Capsule.dr, 40 MG PO DAILY, (Reported) Entered as Reported by: NAS TEJADA on 07/22/21918 Ondansetron (Ondansetron Odt) 4 Mg Tab.rapdis, 4 MG PO Q4H Prescribed by: GABRIELA BLAIR on 10/10/222036 Prednisone (Prednisone) 10 Mg Tab.ds.pk, 10 MG PO DAILY Prescribed by: KATHERINE FIELD on 10/01/22 112 Sildenafil Citrate (Viagra) 100 Mg Tablet, 100 MG PO UD PRN for ED, (Reported) Entered as Reported by: PHILIPP OROZCO on 09/30/22 1247 Tamsulosin HCl (Flomax) 0.4 Mg Cap, 0.4 MG PO DAILY, (Reported) Entered as Reported by: NAS TEJADA on 07/22/21918 Review of Systems Review of Systems Constitutional: No chills, No diaphoresis, No dizziness; weakness Respiratory: No cough; dyspnea on exertion; No orthopnea Cardiovascular: No chest pain, No edema; palpitations; No syncope Gastrointestinal: No abdominal pain, No constipation, No diarrhea Musculoskeletal: joint pain (bilateral legs), muscle pain (bilateral legs) (RHONA ALFREDO) Past [id number] Hx Patient Social History Tobacco Use?: No Use of E-Cig and/or Vaping dev: No Substance use?: No Alcohol Use?: Yes Alcohol type: Beer Pt feels they are or have been: No (RHONA ALFREDO) Seasonal Allergies Seasonal Allergies: No (RHONA ALFREDO) Past Medical History Surgery/Hospitalization HX: ABD HERNIA, APPY, MANSI, CARDIAC STENTS, LOWER BACK, CAD, PALPITATIONS, GERD, HTN, DIVERTICULOSIS. Surgeries: Yes (BACK, HERNIAS, FACE LACERATION, ) Abdominal, Appendectomy, Bowel Surgery, Cardiac, Coronary Stent, Gallbladder, Orthopedic Respiratory: No (COVID -19 [place] 04/2020--NO HOSPITALIZATION OR TREATMENT) Currently Using CPAP: No Currently Using BIPAP: No Cardiac: Yes (STENT X2) Coronary Artery Disease, High Cholesterol, Hypertension, Irregular Heartbeat, Palpitations Neurological: No Reproductive Disorders: No Sexually Transmitted Disease: No HIV/AIDS: No Genitourinary: No Gastrointestinal: Yes Gastroesophageal Reflux, Diverticulosis Musculoskeletal: Yes (BACK SURGERY; L1 COMPRESSION FX WITH KYPHOPLASTY 01/2015;SPINAL STENOSIS ) Chronic Back Pain Endocrine: Yes (Recurrent hypokalemia and hypomagnesemia) HEENT: Yes (READING GLASSES) Loss of Vision: Denies Hearing Impairment: Hard of Hearing Cancer: No Psychosocial: Yes Anxiety Integumentary: No Blood Disorders: Yes (tularemia) Adverse Reaction/Blood Tranf: No (RHONA ALFREDO) Family Medical History No Pertinent Family Hx SOCIAL HISTORY: -SMOKING--FORMER SMOKER, QUIT A FEW YEARS AGO -ETOH--DENIES USE -DRUGS--DENIES USE PAST SURGICAL HISTORY: -APPENDECTOMY -CHOLECYSTECTOMY WITH COMPLICATIONS INCLUDING BOWEL INJURY, REQUIRING BOWEL REPAIR, WITH SUBSEQUENT STAPH INFECTION -VENTRAL HERNIA REPAIR WITH MESH -CARDIAC CATH 07/22/[address] WOOD: IMPRESSION: 1. Mild systemic hypertension. 2. Patent stents in the mid and distal segment of the left anterior descending coronary artery with a 50% stenosis in the proximal segment of the vessel. 3. The right coronary artery is dominant contained mild disease. 4. The patient is known to have normal left ventricular systolic function with an estimated ejection fraction of 60% by echocardiogram obtained on 12/21/2020 (RHONA ALFREDO) Physical Exam Vital Signs Vital Signs - First Documented 04/01/23 16:08 Temp 36.6 Pulse 76 Resp 20 B/P (MAP) 125/87 (100) Pulse Ox 98 O2 Delivery Room Air (BHAKTI PANIAGUA MD) Vital Signs Capillary Refill : Less Than 3 Seconds (RHONA ALFREDO) Height, Weight, BMI Height: 6'0.00" Weight: 190lbs. 0.0oz. 86.549771gu; 26.00 BMI Method:Stated General Appearance: No Apparent Distress, WD/WN Respiratory: Lungs Clear, Normal Breath Sounds, No Accessory Muscle Use, No Respiratory Distress Cardiovascular: Regular Rate, Rhythm, No Edema, No Gallop, No Murmur Gastrointestinal: Normal Bowel Sounds, No Organomegaly, Non Tender, Soft Extremity: Normal Capillary Refill, Non Tender, No Calf Tenderness, No Pedal Edema Neurologic/Psychiatric: Alert, Oriented x3, 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 (RHONA ALFREDO) Progress/Results/Core Measures Suspected Sepsis SIRS Temperature: Pulse: 76 Respiratory Rate: 20 Blood Pressure 125 /87 Mean: 100 Laboratory Tests 04/01/23 16:30: (RHONA ALFREDO) Results/Orders Lab Results Laboratory Tests Test 04/01/23 16:30 04/01/23 18:44 Range/Units White Blood Count 8.0 4.3-11.0 10^3/uL Red Blood Count 3.70 L 4.30-5.52 10^6/uL Hemoglobin 12.0 L 13.3-17.7 g/dL Hematocrit 34 L 40-54 % Mean Corpuscular Volume 91 80-99 fL Mean Corpuscular Hemoglobin 32 25-34 pg Mean Corpuscular Hemoglobin Concent 36 32-36 g/dL Red Cell Distribution Width 13.7 10.0-14.5 % Platelet Count 250 130-400 10^3/uL Mean Platelet Volume 9.8 9.0-12.2 fL Immature Granulocyte % (Auto) 1 % Neutrophils (%) (Auto) 68 42-75 % Lymphocytes (%) (Auto) 18 12-44 % Monocytes (%) (Auto) 10 0-12 % Eosinophils (%) (Auto) 3 0-10 % Basophils (%) (Auto) 0 0-10 % Neutrophils # (Auto) 5.5 1.8-7.8 10^3/uL Lymphocytes # (Auto) 1.4 1.0-4.0 10^3/uL Monocytes # (Auto) 0.8 0.0-1.0 10^3/uL Eosinophils # (Auto) 0.3 0.0-0.3 10^3/uL Basophils # (Auto) 0.0 0.0-0.1 10^3/uL Immature Granulocyte # (Auto) 0.1 0.0-0.1 10^3/uL Prothrombin Time 12.7 12.2-14.7 SEC INR Comment 0.9 0.8-1.4 Activated Partial Thromboplast Time 33 24-35 SEC Sodium Level 135 135-145 MMOL/L Potassium Level 4.0 3.6-5.0 MMOL/L Chloride Level 104 98-107 MMOL/L Carbon Dioxide Level 20 L 21-32 MMOL/L Anion Gap 11 5-14 MMOL/L Blood Urea Nitrogen 29 H 7-18 MG/DL Creatinine 1.44 H 0.60-1.30 MG/DL Estimat Glomerular Filtration Rate 53 BUN/Creatinine Ratio 20 Glucose Level 110 H 70-105 MG/DL Calcium Level 9.4 8.5-10.1 MG/DL Magnesium Level 1.7 1.6-2.4 MG/DL Troponin I < 0.028 <0.028 NG/ML B-Type Natriuretic Peptide 45.8 <100.0 PG/ML (BHAKTI PANIAGUA MD) My Orders Orders - BHAKTI PANIAGUA MD Basic Metabolic Panel (04/01/23 16:14) Cbc And Automated Diff (04/01/23 16:14) Magnesium (04/01/23 16:14) Ed Iv/Invasive Line Start (04/01/23 16:14) Chest 1 View, Ap/Pa Only (04/01/23 16:43) Ekg Tracing (04/01/23 16:43) Protime With Inr (04/01/23 16:43) Partial Thromboplastin Time (04/01/23 16:43) Monitor-Rhythm Ecg Trace Only (04/01/23 16:43) Ed Iv/Invasive Line Start (04/01/23 16:43) Bnp [place] (04/01/23 16:43) Troponin I Grace (04/01/23 16:43) Lactated Ringers 1,000 Ml (Lactated Ring (04/01/23 17:30) Iron Tibc %Sat & Ferritin (04/01/23 18:22) Folic Acid (04/01/23 18:22) Vitamin B 12 (04/01/23 18:22) Vitamin D 25-Hydroxy (04/01/23 18:22) (BHAKTI PANIAGUA MD) Medications Given in ED Current Medications Medications Dose Ordered Sig/Ankita Route Start Time Stop Time Status Last Admin Dose Admin Lactated Ringer's 1,000 ml @ 0 mls/hr Q0M ONCE IV 04/01/23 17:30 04/01/23 17:31 DC 10/21/23 17:31 0 MLS/HR (BHAKTI PANIAGUA MD) Vital Signs/I&O 04/01/23 16:08 Temp 36.6 Pulse 76 Resp 20 B/P (MAP) 125/87 (100) Pulse Ox 98 O2 Delivery Room Air (BHAKTI PANAIGUA MD) Vital Signs/I&O Capillary Refill : Less Than 3 Seconds (RHONA ALFREDO) Blood Pressure Mean: 100 Progress Note : Time: 16:48 Progress Note Patient is seen and accessed. He is noted to have regular rate and rhythm at this time although he believes his heart rate to be elevated earlier today and over the past week. His lungs are clear in all connolly. He notes that when he gets tachycardic and short of air that if he sits down for an extended period of time it will go back to normal. He has no calf tenderness or edema bilaterally. Plan is to order CBC, BMP, MAG, Triponin, COAG and chest X-ray. (RHONA ALFREDO) ECG Initial ECG Impression Date: Apr 01, 2023 Initial ECG Impression Time: 16:52 Initial ECG Rate: 70 Initial ECG Rhythm: Normal Sinus Initial ECG Intervals: Normal Initial ECG Impression: Normal Comment Normal sinus rhythm with no ST elevation or depression. No abnormal intervals or axis deviation. (BHAKTI PANIAGUA MD) Departure Impression Primary Impression: Muscle cramping Additional Impressions: Renal insufficiency Anemia Qualified Codes: D64.9 - Anemia, unspecified Dyspnea on exertion Disposition: 01 HOME, SELF-CARE Condition: Improved Departure-Patient Inst. Decision time for Depature: 19:00 (BHAKTI PANIAGUA MD) Referrals: JUDY ARORA (PCP/Family) Primary Care Physician Patient Instructions: Spinal Stenosis Stretching Exercises, Stretching Exercises for Your Lower Body Add. Discharge Instructions: The exact cause of your muscle cramping is uncertain. Labs have been added to your blood work in the emergency room to test for iron levels, vitamin B12, folate, and vitamin D levels. These tests will not be available for a few days. Please follow-up on these test with your primary care provider. Spinal stenosis could be an additional contributing factor. Please discuss this with your doctor. Because your hands are also involved, discuss MRI imaging of your cervical spine with your primary care doctor. Continue to drink plenty of clear liquids to support your kidney health. Please follow-up with your packaging machine operator regarding your shortness of breath with exertion. You may need follow-up cardiac studies such as echocardiogram or stress test at the discretion of your packaging machine operator. Stretching your muscles may be very helpful in alleviating pain and reducing intensity of cramps. Some handouts have been provided regarding stretching. A prescription for cyclobenzaprine has been provided. This is a mild muscle relaxer that you may use at bedtime to lessen the intensity of cramps. Please return to the emergency room if you have worsening symptoms despite following these instructions. All discharge instructions reviewed with patient and/or family. Voiced understanding. Scripts Cyclobenzaprine HCl (Cyclobenzaprine HCl) 10 Mg Tablet 10 MG PO HS, #10 TAB Prov: BHAKTI PANIAGUA MD 04/01/23 RHONA ALFREDO Apr 01, 2023 16:45 BHAKTI PANIAGUA MD Apr 01, 2023 19:05
[2023-04-01 16:58] LABS: CALCIUM 9.4 MG/DL (8.5-10.1)
[2023-04-01 17:03] LABS: CREATININE SERUM 1.44 MG/DL (0.60-1.30)
--- NOTE | 2023-04-01 17:04 | Diagnostic Imaging Report ---
INDICATION: Leg weakness and shortness of air. Time of Exam: 5:03 PM Correlation is made prior chest 01/02/2021. Findings: The heart size is normal. The pulmonary vascularity is unremarkable. The lungs are clear. No infiltrate, effusion or pneumothorax is detected. Impression: No acute cardiopulmonary process is detected. Dictated by: Dictated on workstation # [id number]
[2023-04-01 17:05] LABS: INR 0.9 (0.8-1.4); MAGNESIUM 1.7 MG/DL (1.6-2.4); PROTHROMBIN TIME PATIENT 12.7 SEC (12.2-14.7)
[2023-04-01] MEDS ORDERED: LACTATED RINGERS 1,000 ML 1,000 ML IV ONE (17:30)
[2023-04-01] MEDS ORDERED: CYCL10TA25 PO (19:05)
[2023-04-01 19:12] VITALS: BP 140/78
== END 2023-04-01 19:12 | disposition home or self-care (01) ==
LOC: EDUNIT# 15:58 → ER 16:01
DX: N28.9 Disorder of kidney and ureter, unspecified (principal); D64.9 Anemia, unspecified; R00.0 Tachycardia, unspecified; Z87.891 Personal history of nicotine dependence
CPT/HCPCS: 36415; 71045; 80048; 82306; 82607; 82728; 82746; 83540; 83550; 83735; 83880; 84484; 85025; 85610; 85730; 93005; 96360